=== PATIENT | male | born 1945 | race Caucasian/White ===

== ENCOUNTER 2016-11-16 10:01 | Emergency (ER) | payer OTHER ==
[~2016-11-16] VITALS: Ht 162.6 cm; Wt 86.0 kg
[2016-11-16 10:12] VITALS: BP 163/75; PULSE 74; RESP 16; TEMP 98.6; O2SAT 100
--- NOTE | 2016-11-16 11:04 | PD ---
HPI Chief Complaint: Psychiatric Symptoms Time Seen by Provider: 11:03 Travel History International Travel<30 days: No Contact w/Intl Traveler<30days: No Traveled to known affect area: No History of Present Illness HPI 21-year-old male presents to the ED via EMS under Green act from [employer] for evaluation after making homicidal statements against his . According to the Green paperwork the patient was [facility] the [facility], threatening to throw his off a second-story balcony. The police officers made contact with the patient and his home. He was home alone. The patient endorsed feeling angry and upset with his who was not at the residence. He stated to the officer that his talks with a "smart" attitude and again made references to throwing her off the balcony. He also stated to the [facility] employee that if he had weapons he would kill someone. On presentation the patient is angry, hostile, abusive, confrontational, refusing to provide any information. His is at bedside and is able to provide some information. She states that the patient has a medical history of DM, neuropathy, PTSD. She is unsure of the medicines that he takes or any further medical problems. She states that the patient does not share his medical information with her. She states that the [facility] cancelled several appointments on the patient and this is the source of his anger today. Patient is a current smoker. [facility] Past Medical History High Cholesterol: Yes Diabetes: Yes Psychiatric: Yes (PTSD) Social History Tobacco Use: Yes Allergies-Medications (Allergen,Severity, Reaction): Coded Allergies: No Known Allergies (Unverified , 11/16/16) Review of Systems Except as stated in HPI: all other systems reviewed are Neg Physical Exam Narrative GENERAL: Well-nourished, well-developed white male in no acute distress. SKIN: Focused skin assessment warm/dry. There are a few, subcentimeter, crusted abrasions on the anterior right btets. Mild tenderness. Mild surrounding erythema. No warmth. Drainage. HEAD: Normocephalic. EYES: No scleral icterus. No injection or drainage. NECK: Supple, trachea midline. No JVD or lymphadenopathy. CARDIOVASCULAR: Regular rate and rhythm without murmurs, gallops, or rubs. 2+ DP and radial pulses bilaterally. RESPIRATORY: Breath sounds clear and equal bilaterally. No accessory muscle use. GASTROINTESTINAL: Abdomen protuberant, soft, non-tender, nondistended. Active bowel sounds. MUSCULOSKELETAL: No cyanosis. 2+ edema in bilateral lower extremities, right greater than left. BACK: Nontender without obvious deformity. No CVA tenderness. Data Data Last Documented VS Vital Signs Date Time Temp Pulse Resp B/P Pulse Ox O2 Delivery O2 Flow Rate FiO2 11/16/16 10:12 98.6 74 16 163/75 100 Orders Complete Blood Count With Diff (11/16/16 11:00) Comprehensive Metabolic Panel (11/16/16 11:00) Urinalysis - C+S If Indicated (11/16/16 11:00) Psych Screen (11/16/16 11:00) Drug Screen, Random Urine (11/16/16 11:00) Alcohol (Ethanol) (11/16/16 11:00) Insulin Human Regular Inj (Novolin R Inj (11/16/16 13:00) Sodium Chlor 0.9% 1000 Ml Inj (Ns 1000 M (11/16/16 13:00) Diet Diabetic (11/16/16 Lunch) Blood Glucose (11/16/16 13:15) Labs Laboratory Tests Test 11/16/16 11/16/16 10:20 11:05 White Blood Count 7.0 TH/MM3 Red Blood Count 3.99 MIL/MM3 Hemoglobin 12.4 GM/DL Hematocrit 35.9 % Mean Corpuscular Volume 89.8 FL Mean Corpuscular Hemoglobin 31.1 PG Mean Corpuscular Hemoglobin 34.6 % Concent Red Cell Distribution Width 13.2 % Platelet Count 183 TH/MM3 Mean Platelet Volume 10.7 FL Neutrophils (%) (Auto) 60.9 % Lymphocytes (%) (Auto) 27.9 % Monocytes (%) (Auto) 7.4 % Eosinophils (%) (Auto) 3.0 % Basophils (%) (Auto) 0.8 % Neutrophils # (Auto) 4.2 TH/MM3 Lymphocytes # (Auto) 1.9 TH/MM3 Monocytes # (Auto) 0.5 TH/MM3 Eosinophils # (Auto) 0.2 TH/MM3 Basophils # (Auto) 0.1 TH/MM3 CBC Comment DIFF FINAL Differential Comment Sodium Level 138 MEQ/L Potassium Level 3.9 MEQ/L Chloride Level 103 MEQ/L Carbon Dioxide Level 25.1 MEQ/L Anion Gap 10 MEQ/L Blood Urea Nitrogen 10 MG/DL Creatinine 0.90 MG/DL Estimat Glomerular Filtration 83 ML/MIN Rate Random Glucose 299 MG/DL Calcium Level 8.6 MG/DL Total Bilirubin 0.5 MG/DL Aspartate Amino Transf 13 U/L (AST/SGOT) Alanine Aminotransferase 22 U/L (ALT/SGPT) Alkaline Phosphatase 95 U/L Total Protein 6.4 GM/DL Albumin 3.4 GM/DL Ethyl Alcohol Level LESS THAN 3 MG/DL Urine Color YELLOW Urine Turbidity CLEAR Urine pH 6.5 Urine Specific [place] 1.028 Urine Protein TRACE mg/dL Urine Glucose (UA) 1000 mg/dL Urine Ketones TRACE mg/dL Urine Occult Blood NEG Urine Nitrite NEG Urine Bilirubin NEG Urine Urobilinogen LESS THAN 2.0 MG/DL Urine Leukocyte Esterase NEG Urine RBC LESS THAN 1 /hpf Urine WBC LESS THAN 1 /hpf Microscopic Urinalysis Comment CULT NOT INDICATED Urine Opiates Screen NEG Urine Barbiturates Screen NEG Urine Amphetamines Screen NEG Urine Benzodiazepines Screen NEG Urine Cocaine Screen NEG Urine Cannabinoids Screen NEG MDM Medical Decision Making Medical Screen Exam Complete: Yes Emergency Medical Condition: Yes Differential Diagnosis Adjustment disorder versus anxiety versus bipolar versus depression versus dementia versus electrolyte disorder versus malingering versus mood disorder versus ODD versus psychosis versus PTSD versus schizophrenia versus schizoaffective disorder versus substance-induced mood disorder versus other Narrative Course 71-year-old male presents to the ED via EMS under Green act from [employer] for evaluation after making homicidal statements against his . According to the Green paperwork the patient made a threat to therow his over the balcony and also stated that if he had weapons he would kill someone. On presentation the patient is angry, hostile, abusive, confrontational , refusing to provide any information. His is at bedside and states that the patient has a medical history of DM, neuropathy, PTSD. She is unsure of the medicines that he takes or any further medical problems, as the patient does not share his medical information with her. She states that the [facility] cancelled several appointments on the patient and this is the source of his anger today. [facility] Vitals reviewed. After the patient calmed down I entered the room and was able to perform a physical exam. He is a nontoxic- appearing white male in no acute distress. He is quite emotionally labile during the course of our talk, but his anger seems to have subsided for the time being. He denies chest pain, shortness of breath, abdominal pain, changes in bowel habits, dysuria. Chest is clear to auscultation bilaterally, no appreciable M/R/G. Abdomen protuberant, soft, nontender. 2+ edema in the bilateral lower extremities. Right greater than left. CBC: No anemia or leukocytosis. CMP: Glucose 299 UA: No culture indicated Tox screen: Negative Patient was administered a liter of normal saline, 6 units insulin IM, allowed to eat lunch. He states that he woke up this morning feeling incredibly angry and is unsure of the reason why. He does relate several stories related to his time in [place] which I feel is likely contributing to his anger. Family is [facility] that [facility] [place] [facility] care. I explained that he must undergo a psychiatric evaluation here before that decision is made. Patient is medically cleared for psychiatric evaluation. Please see psych notes for disposition. Diagnosis Primary Impression: Medical clearance for psychiatric admission Tarah Friedman Nov 16, 2016 11:04
[2016-11-16 11:42] LABS: AUTOMATED NEUTROPHIL # 4.2 TH/MM3 (1.8-7.7); BASOPHIL # 0.1 TH/MM3 (0-0.2); BASOPHIL % 0.8 % (0.0-2.0); EOSINOPHIL # 0.2 TH/MM3 (0-0.4); HEMATOCRIT 35.9 % (39.0-51.0); HEMO FLAGS DIFF FINAL; LYMPH % 27.9 % (9.0-44.0); LYMPHOCYTE # 1.9 TH/MM3 (1.0-4.8); MEAN CELL VOLUME 89.8 FL (80.0-100.0); MEAN CORPUSCULAR HEMOGLOBIN 31.1 PG (27.0-34.0); MEAN CORPUSCULAR HGB CONC 34.6 % (32.0-36.0); MONO % 7.4 % (0.0-8.0); NEUT % 60.9 % (16.0-70.0); PLATELET COUNT 183 TH/MM3 (150-450); RED BLOOD COUNT 3.99 MIL/MM3 (4.50-5.90); RED CELL DISTRIBUTION WIDTH 13.2 % (11.6-17.2)
[2016-11-16 11:50] LABS: BLOOD, URINE NEG (NEG); COMMENT (UR) CULT NOT INDICATED; CULTURE IF INDICATED CULT NOT INDICATED; GLUCOSE,URINE 1000 mg/dL (NEG); KETONE, URINE TRACE mg/dL (NEG); NITRITE,URINE NEG (NEG); PH, URINE 6.5 (5.0-8.5); URINE COLOR YELLOW (YELLW/STRAW)
[2016-11-16 11:57] LABS: ALT (GPT) 22 U/L (12-78); ANION GAP 10 MEQ/L (5-15); AST (GOT) 13 U/L (15-37); BICARBONATE 25.1 MEQ/L (21.0-32.0); BLOOD UREA NITROGEN 10 MG/DL (7-18); CHLORIDE 103 MEQ/L (98-107); GLOMERULAR FILTRATION RATE 83 ML/MIN (>89); POTASSIUM 3.9 MEQ/L (3.5-5.1); SODIUM (NA) 138 MEQ/L (136-145)
[2016-11-16 11:59] LABS: ALKALINE PHOSPHATASE 95 U/L (45-117); TOTAL BILIRUBIN ADULT 0.5 MG/DL (0.2-1.0)
[2016-11-16 12:46] LABS: AMPHETAMINE, URINE NEG (NEG); BARBITURATES, URINE NEG (NEG); COCAINE, URINE NEG (NEG)
[2016-11-16] MEDS ORDERED: SODIUM CHLOR 0.9% 1000 ML INJ 1,000 ML IV ONE (13:00)
[2016-11-16] MEDS ORDERED: INSULIN HUMAN REGULAR 1,000 UNITS/10 ML VIAL SQ ONE (13:00)
[2016-11-16 15:24] VITALS: BP 142/79; PULSE 77; RESP 16; O2SAT 97
[2016-11-16] MEDS ORDERED: METF1000 PO (16:37)
[2016-11-16] MEDS ORDERED: GLIP10TA6 PO (16:37)
[2016-11-16] MEDS ORDERED: SERT-129 PO (16:56)
[2016-11-16] MEDS ORDERED: SIMV20TA PO (16:56)
[2016-11-16] MEDS ORDERED: LOSA100T PO (16:56)
[2016-11-16] MEDS ORDERED: GABA400C5 PO (16:56)
[2016-11-16] MEDS ORDERED: RANI150T PO (16:56)
[2016-11-16] MEDS ORDERED: OXYB5TAB10 PO (16:56)
[2016-11-16 16:57] VITALS: BP 152/73; PULSE 86; RESP 16; O2SAT 100
[2016-11-16] MEDS ORDERED: VIST50CA PO (16:57)
[2016-11-16] MEDS ORDERED: ATEN50TA PO (17:00)
[2016-11-16] MEDS ORDERED: LOTR2AER2 TOPICAL (17:00)
[2016-11-16] MEDS ORDERED: DOCU100C PO (17:00)
[2016-11-16] MEDS ORDERED: metFORMIN HCL 500 MG TAB PO ONE (18:00)
[2016-11-16 22:07] VITALS: BP 156/70; PULSE 59; RESP 19; O2SAT 98
[2016-11-17 02:27] VITALS: BP 153/72; PULSE 75; RESP 19; O2SAT 94
[2016-11-17 06:23] VITALS: BP 181/80; PULSE 78; RESP 19; O2SAT 99
[2016-11-17] MEDS ORDERED: metFORMIN HCL 500 MG TAB PO ONE (08:45)
[2016-11-17 09:01] VITALS: BP 145/65; PULSE 73; RESP 18; O2SAT 99
--- NOTE | 2016-11-17 09:11 | MB ---
cc: LORENZO JACOME DATE OF CONSULTATION 11/17/2016 PHYSICIAN REQUESTING CONSULTATION Emergency Department REASON FOR CONSULTATION Green Act HISTORY OF PRESENT ILLNESS Mr. Montiel is a 71-year-old male with a possible history of PTSD who presents on a Green Act from [employer] alleging that the patient was on the phone with the [facility] and told employees that he was upset and angry and was going to throw his off of a second story balcony. Reviewing the electronic medical record, I see no prior psychiatric contact within our system. This is in fact the patient's first visit to [facility]. The patient seen and examined. Chart reviewed. Case discussed with nurse in the J pod. There has been no evidence of any suicidality or homicidality despite nearly a day of observation in the emergency room. On my examination today, the patient is calm and pleasant. He says that he has been struggling with a lot of anxiety and frustration lately because he has a variety of medical issues, and his doctors at the [facility] cannot provide him with a diagnosis or treatment plan for these. He says that on the morning in question, "I woke up that morning so pissed off and it only got worse." He says that his was not even home when he issued the threat and he adamantly denies any urge to injure or kill his on direct questioning now. He says "I love my ." He denies any suicidal ideation, intent or plan on direct questioning. He does endorse feeling somewhat depressed as a consequence of the ambiguity of his medical conditions. He reports that his sleep is poor, but it is also disrupted by nightmares which may be related to PTSD. His appetite is fair. He remains hopeful and says "I know I am going to get better." There is some possible anhedonia. No morbid guilt or feelings of worthlessness. No hypomanic or manic symptoms noted. Denies audiovisual hallucinations and I can elicit no delusional beliefs. The remainder of the psychiatric ROS is negative. The patient is requesting discharge from the psychiatric emergency room this morning. Nursing staff has obtained collateral twice from the patient's to the effect that she has absolutely no safety concerns about the patient being discharged from the ED. PAST PSYCHIATRIC HISTORY The patient reports a possible diagnosis of PTSD. He is reportedly seen by a psychiatrist at the [facility]. He denies any history of psychiatric admissions or suicide attempts. He denies any history of violent behavior or violent crime. FAMILY HISTORY The patient reports that he had an uncle on his father's side who went insane after drinking some of his own bathtub liquor during the prohibition. CHEMICAL DEPENDENCY HISTORY The patient denies any abuse of drugs or alcohol himself. SOCIAL HISTORY The patient reports that he lives with his of 28 years. This is his second marriage, his first marriage having ended in divorce after 23 years. He has four children. He has an ANNA. He worked in machinery sales until retiring. He denies any legal history. He is an [employer] with an honorable discharge and service in [place]. He denies any access to guns or firearms. He does endorse denominational beliefs. PAST MEDICAL HISTORY Includes a history of peripheral neuropathy and type 2 diabetes. REVIEW OF SYSTEMS The patient does have some continence issues. No reported headache, vision or hearing changes, chest pain, shortness of breath, bowel issues. PHYSICAL EXAMINATION VITAL SIGNS: Temperature is 98.6, pulse 78, respirations 19, blood pressure 181/80, pulse oximetry 99% on room air. Physical examination was completed by the ED provider. On my examination today, the patient appears to be in no acute physical distress. He does walk with a somewhat antalgic gait. I also note that he has a left greater than right resting tremor. No other motoric abnormalities noted. LABORATORY Reviewed: CBC is significant for a normocytic anemia with hemoglobin of 12.4. CMP is significant for hyperglycemia at 299 in a nonfasting sample, as well as decreased GFR at 83. Toxicology is negative and alcohol level is undetectable. Urinalysis reveals glucosuria and trace ketones. MENTAL STATUS EXAM The patient is in hospital w. He is mildly disheveled but maintaining basic hygiene. He is awake and alert and oriented to person, year, location. His registration is 3/3 and his recall is 1/3 at 5 minutes. He is able to spell the word world forwards and gives it backwards as dorwo. He is able to name two items and repeat a phrase. He is able to name the left three presidents. Motor exam as above. Speech is within normal limits for rate, tone and volume. Language and fund of knowledge seem average. Mood is somewhat depressed and affect is restricted. Thought process linear. No loosening of associations. No evident delusions. Denies audiovisual hallucinations. Denies suicidal or homicidal ideation, intent or plan and contracts for safety. Insight and judgment are fair. ASSESSMENT/PLAN 1. Major depressive disorder, currently moderate, F33.1 2. Suspect comorbid PTSD, chronic This is a 71-year-old male with psychiatric history as detailed above who presents under a Green Act. On my examination today, the patient denies any suicidal or homicidal ideation and in particular denies any urge to injure his . He says that he just woke up angry that morning on account of his frustration about [facility] to [facility] and treat his medical conditions. He does describe some depressive symptomatology and I suspect he is currently experiencing a moderate degree of major depression. He does appear to be attending to his basic needs. The nursing staff has obtained reassuring collateral from the patient's . Putting all of this information together and weighing the acute, chronic, and protective factors, I textile finisher to a reasonable degree of medical certainty that the patient is at low imminent risk of harm to self or others from a mental illness as defined under the Green Act. His level of function is adequate for outpatient care. Consequently, the patient does not meet Green Act criteria and I have lifted the Green Act. I have recommended that the patient consider voluntary psychiatric hospitalization for the management of his depression, but he has declined. Given that I have no basis to retain this patient involuntarily and given that he is requesting discharge from the ED, I must recommend his discharge from a psychiatric standpoint. I have counseled the patient to follow up with his outpatient psychiatric providers and continue with his psychotropic medications. I have counseled the patient regarding warning signs for need to return to the psychiatric emergency room as part of a general safety plan. The patient is otherwise psychiatrically clear for discharge from the ED. Case discussed with RN in the J pod. Thank you very much for this consultation. Lorenzo VALENZUELA /8:03 AM /9:00 AM [facility]
== END 2016-11-17 09:24 | disposition home or self-care (01) ==
LOC: NEPE 10:01 → NEPJ 11-17 09:24
DX: Z02.89 Encounter for other administrative examinations (principal); F33.1 Major depressive disorder, recurrent, moderate; R45.4 Irritability and anger; R45.5 Hostility; R45.86 Emotional lability; E11.9 Type 2 diabetes mellitus without complications; E78.00 Pure hypercholesterolemia, unspecified; G62.9 Polyneuropathy, unspecified; Z72.0 Tobacco use; Z86.59 Personal history of other mental and behavioral disorders
CPT/HCPCS: 80053; 80307; 81001; 85025; 96372; 99284; J1815; J7030

== ENCOUNTER 2017-03-06 13:33 | Inpatient (IN) | payer OTHER, MEDICARE ==
[~2017-03-06] VITALS: Ht 175.3 cm; Wt 68.0 kg
[~2017-03-06 13:33] MED LIST: ATEN50TA PO; DOCU100C PO; GABA400C5 PO; GLIP10TA6 PO; LOSA100T PO; LOTR2AER2 TOPICAL; METF1000 PO; OXYB5TAB10 PO; RANI150T PO; SERT-129 PO; SIMV20TA PO; VIST50CA PO
[2017-03-06] MEDS ORDERED: DEXTROSE 50% IN WATER 50 ML SYRINGE ONE (13:43)
[2017-03-06 13:50] VITALS: RESP 18; O2SAT 96
[2017-03-06 13:51] VITALS: BP 152/71; PULSE 61; RESP 18; TEMP 97.7; O2SAT 96
[2017-03-06] MEDS ORDERED: SODIUM CHLOR 0.9% 1000 ML INJ 1,000 ML IV SCH (13:52)
[2017-03-06] MEDS ORDERED: DEXTROSE 50% IN WATER 50 ML SYRINGE IV ONE ×2 (14:00→16:15)
[2017-03-06 14:11] LABS: AUTOMATED NEUTROPHIL # 13.4 TH/MM3 (1.8-7.7); BASOPHIL % 0.1 % (0.0-2.0); EOSINOPHIL % 0.1 % (0.0-4.0); HEMATOCRIT 34.2 % (39.0-51.0); LYMPHOCYTE # 1.5 TH/MM3 (1.0-4.8); MEAN CELL VOLUME 90.9 FL (80.0-100.0); MEAN CORPUSCULAR HEMOGLOBIN 30.6 PG (27.0-34.0); MEAN CORPUSCULAR HGB CONC 33.6 % (32.0-36.0); MONO % 7.6 % (0.0-8.0); NEUT % 83.2 % (16.0-70.0); PLATELET COUNT 369 TH/MM3 (150-450); RED BLOOD COUNT 3.76 MIL/MM3 (4.50-5.90); RED CELL DISTRIBUTION WIDTH 13.1 % (11.6-17.2); WHITE BLOOD COUNT 16.1 TH/MM3 (4.0-11.0)
[2017-03-06 14:17] LABS: HEMO FLAGS AUTO DIFF
[2017-03-06 14:28] LABS: PROTHROMBIN TIME - PATIENT 10.7 SEC (9.8-11.6)
[2017-03-06 14:30] LABS: ANION GAP 18 MEQ/L (5-15)
[2017-03-06 14:41] LABS: ALKALINE PHOSPHATASE 67 U/L (45-117); ALT (GPT) 21 U/L (12-78); AST (GOT) 25 U/L (15-37); BICARBONATE 14.4 MEQ/L (21.0-32.0); BLOOD UREA NITROGEN 111 MG/DL (7-18); CHLORIDE 98 MEQ/L (98-107); GLOMERULAR FILTRATION RATE 5 ML/MIN (>89); SODIUM (NA) 130 MEQ/L (136-145); TOTAL BILIRUBIN ADULT 0.3 MG/DL (0.2-1.0)
[2017-03-06 14:49] LABS: BACTERIA, URINE RARE /hpf; BLOOD, URINE SMALL (NEG); COMMENT (UR) CATH-CULTURE IND; CULTURE IF INDICATED CATH CULTURE IND; GLUCOSE,URINE NEG (NEG); KETONE, URINE NEG (NEG); NITRITE,URINE NEG (NEG); URINE COLOR YELLOW (YELLW/STRAW)
[2017-03-06 14:49] LABS: PLATELET ESTIMATE SMEAR NORMAL (NORMAL)
[2017-03-06 14:50] LABS: PLATELET MORPHOLOGY ENLARGED (NORMAL); SCAN/DIFF AUTO DIFF CONFIRMED
[2017-03-06 14:57] LABS: CREATINE KINASE 60 U/L (39-308)
[2017-03-06] MEDS ORDERED: VANCOMYCIN INJ 1,000 MG in SODIUM CHLOR 0.9% 250 ML INJ 250 ML IV ONE (15:00)
[2017-03-06] MEDS ORDERED: SODIUM CHLOR 0.9% 1000 ML INJ 1,000 ML IV ONE ×2 (15:00→16:30)
[2017-03-06] MEDS ORDERED: PIPERACIL-TAZO 4.5 GM PREMIX 100 ML IV ONE (15:00)
[2017-03-06 15:03] LABS: POTASSIUM 7.4 MEQ/L (3.5-5.1)
--- NOTE | 2017-03-06 15:09 | RADRPT ---
EXAM DATE/TIME: 03/06/2017 14:34 [facility] COMPARISON: No previous studies available for comparison. INDICATIONS : Syncope, falling MEDICAL HISTORY : Diabetes, transverse myelitis per SURGICAL HISTORY : None. ENCOUNTER: Initial ACUITY: 1 day PAIN SCORE: 0/10 LOCATION: Bilateral chest FINDINGS: There is elevation of the right hemidiaphragm. Bibasilar streakiness is noted consistent with probab le atelectasis. The heart is normal. Degenerative changes and mild scoliosis of the thoracic spine a re noted. CONCLUSION: 1. Bibasilar streakiness consistent with probable atelectasis. 2. Elevation of the right hemidiaphragm. 3. Degenerative changes and mild scoliosis of the thoracic spine. Krishan Mitchell MD on March 06, 2017 at 15:05 Board Certified Radiologist. This report was verified electronically.
[2017-03-06] MEDS ORDERED: RESP: ALBUTEROL CONC 2.5 MG/0.5 ML NEB INH ONE (15:15)
[2017-03-06] MEDS ORDERED: SODIUM BICARBONATE 8.4% SOLN 50 MEQ/50 ML VIAL SLOW IVP ONE (15:15)
[2017-03-06] MEDS ORDERED: CALCIUM GLUCONATE 10% 1 GM/10 ML VIAL SLOW IVP ONE (15:15)
--- NOTE | 2017-03-06 15:26 | PD ---
HPI Chief Complaint: Diabetic Time Seen by Provider: 13:52 Travel History International Travel<30 days: No Contact w/Intl Traveler<30days: No Traveled to known affect area: No History of Present Illness HPI 72-year-old male was brought to the emergency room with history of mental status and blood sugar in the 20s. Patient was brought in by EMS. They were unable to put an IV and had inserted and IO to which they were giving him D10. When patient arrived here his blood sugar was 33. She continued to be lethargic but answering questions by nodding or shaking his head. I've inserted and EJ and patient was given D 50 by that. He was not a reliable historian at this point. As per the EMS patient has history of MS and was recently discharged from a rehabilitation. He has history of diabetes and he has home health care that they do not check his sugar. [facility] Past Medical History Narrative Medical List of his past medical, surgical, social and family history is reviewed from the nursing note. Autoimmune Disease: Yes (MS) High Cholesterol: Yes Diabetes: Yes Patient Takes Glucophage: Yes Psychiatric: Yes (PTSD) Social History Alcohol Use: Yes (" will not buy anymore beer for me") Tobacco Use: Yes Substance Use: No (Denies) Allergies-Medications (Allergen,Severity, Reaction): Coded Allergies: No Known Allergies (Unverified , 11/16/16) Comments No known drug allergies. Reported Meds & Prescriptions Reported Meds & Active Scripts Active Reported Lotrimin AF Deodorant Powder (Miconazole Nitrate Powder) 2 % Aerp 1 Applic TOPICAL DAILY PRN Docusate Sodium 100 Mg Cap 200 Mg PO DAILY Atenolol 50 Mg Tab 50 Mg PO DAILY Vistaril (Hydroxyzine Pamoate) 50 Mg Cap 50 Mg PO HS PRN Losartan (Losartan Potassium) 100 Mg Tab 100 Mg PO DAILY Simvastatin 20 Mg Tab 20 Mg PO HS Sertraline (Sertraline HCl) 100 Mg Tab 100 Mg PO DAILY Ditropan (Oxybutynin Chloride) 5 Mg Tab 2.5 Mg PO BID Ranitidine (Ranitidine HCl) 150 Mg Tab 150 Mg PO BID Gabapentin 400 Mg Cap 400 Cap PO TID Glipizide 10 Mg Tab 20 Mg PO BIDAC Take 30 minutes before a meal Metformin (Metformin HCl) 1,000 Mg Tab 1,000 Mg PO BIDPC With meals Narrative Medication List of his home medications reviewed from the nursing note. Review of Systems Except as stated in HPI: all other systems reviewed are Neg Physical Exam Narrative GENERAL: Lethargic, cold and clammy, moderate distress SKIN: Focused skin assessment warm/dry. Pale HEAD: Atraumatic. Normocephalic. EYES: Pupils equal and round. No scleral icterus. No injection or drainage. ENT: No nasal bleeding or discharge. Mucous membranes pink and moist. NECK: Trachea midline. No JVD. CARDIOVASCULAR: Regular rate and rhythm. No murmur appreciated. RESPIRATORY: No accessory muscle use. Clear to auscultation. Breath sounds equal bilaterally. GASTROINTESTINAL: Abdomen soft, non-tender, nondistended. Hepatic and splenic margins not palpable. MUSCULOSKELETAL: No obvious deformities. No clubbing. No cyanosis. No edema. NEUROLOGICAL: Lethargic, GCS of 13. No obvious cranial nerve deficits. Motor grossly within normal limits. Normal speech. PSYCHIATRIC: Appropriate mood and affect; insight and judgment normal. Data Data Last Documented VS Vital Signs Date Time Temp Pulse Resp B/P Pulse Ox O2 Delivery O2 Flow Rate FiO2 03/06/17 14:10 65 18 97 Nasal Cannula 2 03/06/17 13:51 97.7 152/71 Orders Dextrose 50% In Caden (Syr) Inj (D50w (Syr (03/06/17 13:43) Electrocardiogram (03/06/17 13:52) Ammonia (03/06/17 13:52) Complete Blood Count With Diff (03/06/17 13:52) Comprehensive Metabolic Panel (03/06/17 13:52) Creatine Kinase (Cpk) (03/06/17 13:52) Prothrombin Time / Inr (Pt) (03/06/17 13:52) Troponin I (03/06/17 13:52) Thyroid Stimulating Hormone (03/06/17 13:52) Urinalysis - C+S If Indicated (03/06/17 13:52) Lactic Acid Sepsis Protocol (03/06/17 13:52) Blood Culture (03/06/17 13:52) Chest, Single Ap (03/06/17 13:52) Ct Brain W/O Iv Contrast(Rout) (03/06/17 13:52) Blood Glucose (03/06/17 13:52) Ecg Monitoring (03/06/17 13:52) Iv Access Insert/Monitor (03/06/17 13:52) Oximetry (03/06/17 13:52) Sodium Chloride 0.9% Flush (Ns Flush) (03/06/17 14:00) Sodium Chlor 0.9% 1000 Ml Inj (Ns 1000 M (03/06/17 13:52) Ct Abd/Pel W/O Iv Contrast (03/06/17 ) Urinary Catheter Insert/Apply (03/06/17 13:52) Dextrose 50% In Caden (Syr) Inj (D50w (Syr (03/06/17 14:00) Urine Culture (03/06/17 14:00) Sodium Chlor 0.9% 1000 Ml Inj (Ns 1000 M (03/06/17 15:00) Piperacil-Tazo 4.5 Gm Premix (Zosyn 4.5 (03/06/17 15:00) Vancomycin Inj (Vancomycin Inj) (03/06/17 15:00) Calcium Gluconate Inj (Calcium Gluconate (03/06/17 15:15) Sodium Bicarbonate 8.4% Inj (Sodium Bica (03/06/17 15:15) Albuterol Concentrated Neb (Albuterol Co (03/06/17 15:15) Notify Radiology (03/06/17 15:42) ^ Saline Lock (03/06/17 15:42) Sodium Chlor 0.9% 1... W/Sodium Bicarbon (03/06/17 15:42) Admit Order (Ed Use Only) (03/06/17 15:44) Labs Laboratory Tests Test 03/06/17 03/06/17 13:50 14:00 White Blood Count 16.1 TH/MM3 Red Blood Count 3.76 MIL/MM3 Hemoglobin 11.5 GM/DL Hematocrit 34.2 % Mean Corpuscular Volume 90.9 FL Mean Corpuscular Hemoglobin 30.6 PG Mean Corpuscular Hemoglobin 33.6 % Concent Red Cell Distribution Width 13.1 % Platelet Count 369 TH/MM3 Mean Platelet Volume 9.0 FL Neutrophils (%) (Auto) 83.2 % Lymphocytes (%) (Auto) 9.0 % Monocytes (%) (Auto) 7.6 % Eosinophils (%) (Auto) 0.1 % Basophils (%) (Auto) 0.1 % Neutrophils # (Auto) 13.4 TH/MM3 Lymphocytes # (Auto) 1.5 TH/MM3 Monocytes # (Auto) 1.2 TH/MM3 Eosinophils # (Auto) 0.0 TH/MM3 Basophils # (Auto) 0.0 TH/MM3 CBC Comment AUTO DIFF Differential Comment AUTO DIFF CONFIRMED Platelet Estimate NORMAL Platelet Morphology Comment ENLARGED Prothrombin Time 10.7 SEC Prothromb Time International 1.0 RATIO Ratio Sodium Level 130 MEQ/L Potassium Level 7.4 MEQ/L Chloride Level 98 MEQ/L Carbon Dioxide Level 14.4 MEQ/L Anion Gap 18 MEQ/L Blood Urea Nitrogen 111 MG/DL Creatinine 10.21 MG/DL Estimat Glomerular Filtration 5 ML/MIN Rate Random Glucose 51 MG/DL Lactic Acid Level 5.8 mmol/L Calcium Level 8.7 MG/DL Total Bilirubin 0.3 MG/DL Aspartate Amino Transf 25 U/L (AST/SGOT) Alanine Aminotransferase 21 U/L (ALT/SGPT) Alkaline Phosphatase 67 U/L Total Creatine Kinase 60 U/L Troponin I LESS THAN 0.02 NG/ML Total Protein 6.8 GM/DL Albumin 2.4 GM/DL Thyroid Stimulating Hormone 2.150 uIU/ML 3rd Gen Urine Color YELLOW Urine Turbidity CLEAR Urine pH 5.0 Urine Specific [place] 1.014 Urine Protein TRACE mg/dL Urine Glucose (UA) NEG mg/dL Urine Ketones NEG mg/dL Urine Occult Blood SMALL Urine Nitrite NEG Urine Bilirubin NEG Urine Urobilinogen LESS THAN 2.0 MG/DL Urine Leukocyte Esterase NEG Urine RBC 6 /hpf Urine WBC 1 /hpf Urine Amorphous Sediment RARE Urine Bacteria RARE /hpf Microscopic Urinalysis Comment [facility] Medical Decision Making Medical Screen Exam Complete: Yes Emergency Medical Condition: Yes Medical Record Reviewed: Yes Interpretation(s) Twelve-lead EKG was reviewed by me. Normal sinus rhythm, normal axis, right bundle branch block, first-degree AV block, bradycardia. Heart rate of 59 bpm. Differential Diagnosis Hypoglycemia, sepsis, dehydration, electrolyte abnormality Narrative Course 3:22 PM blood test results are suggestive of sepsis with leukocytosis, elevated lactic acid. Patient also has acute renal failure with metabolic acidosis. I' ve given him another liter of IV fluid bolus and he's been given IV calcium chloride 2 g, 3 A of bicarbonate and albuterol nebulizer. Hips repeat blood sugar is 132 after D50. Patient will require admission in the ICU. Awaiting for the embroidery designer call back. I will also put a page out for the department coordinator since he would require quite possibly emergent dialysis. Patient has a Mendoza catheter. 4:19 PM I discussed the case with Dr. Maria who agreed with the emergent dialysis. He wanted the patient to be on a bicarbonate drip as well in addition to the medications that were ordered for hyperkalemia by me. The drip has been added. I just finished putting a central line. Please refer to my procedure note. Patient tolerated the procedure well. Patient has put out almost 2 L of urine into his Mendoza. CT abdomen shows significant perinephric stranding more on the right. He possibly had obstructive uropathy. The is here and I spoke with her briefly and let her know about the patient's condition and the need to put the central line. She mentioned that patient was complaining of abdominal pain in rehabilitation yesterday and had not urinated much in past 2 days. Critical Care Narrative Aggregate critical care time was 75 minutes. Time to perform other separately billable procedures was not included in the critical care time. My time did not include minutes spent treating any other patients simultaneously or on activities that did not directly contribute to the patient's treatment. The services I provided to this patient were to treat and/or prevent clinically significant deterioration that could result in: Severe hyperglycemia, sepsis, metabolic acidosis, acute renal failure, hyperkalemia, hyperkalemia correction I provided critical care services requiring my management, as noted below: Chart data review, documentation time, medication orders and management, vital sign assessments/reviewing monitor data, ordering and reviewing lab tests, ordering and interpreting/reviewing x-rays and diagnostic studies, care of the patient and discussion of the patient with the admitting physicians. Procedures Procedure Narrative CENTRAL VENOUS LINE: The site was prepped with Betadine and sterilely draped. It was infiltrated with 1% lidocaine plain. The deep vein was cannulated using normal Seldinger technique. A triple lumen central line was placed in the left subclavian site and secured with simple interrupted suture. The site was sterilely dressed. The patient tolerated the procedure well. EKG Prior to Arrival: No Physician Communication Physician Communication Dr. Maria, Dr. Aguilar Diagnosis Primary Impression: Acute renal failure Qualified Code: N17.9 - Acute renal failure, unspecified acute renal failure type Additional Impressions: Hypoglycemia Altered mental status Qualified Code: R40.0 - Somnolence Metabolic acidosis Sepsis Qualified Code: A41.9 - Sepsis, due to unspecified organism Lactic acidosis Hyperkalemia Admitting Information Admitting Physician Requests: it Stephanie Carrillo MD Mar 06, 2017 15:26
[2017-03-06] MEDS ORDERED: SODIUM BICARBONATE 8.4% INJ 154 MEQ in SODIUM CHLOR 0.9% 1000 ML INJ 846 ML IV SCH (15:42)
[2017-03-06] MEDS ORDERED: ONDANSETRON HCL 4 MG/2 ML VIAL ONE (15:54)
[2017-03-06 16:06] LABS: LACTIC ACID GHOST NOT REPORTABLE
--- NOTE | 2017-03-06 16:07 | RADRPT ---
EXAM DATE/TIME: 03/06/2017 15:25 [facility] COMPARISON: No previous studies available for comparison. INDICATIONS : Altered mental status RADIATION DOSE: 56.35 CTDIvol (mGy) MEDICAL HISTORY : Diabetes mellitus type 1. SURGICAL HISTORY : None. ENCOUNTER: Initial ACUITY: 1 day PAIN SCALE: 0/10 LOCATION: cranial TECHNIQUE: Multiple contiguous axial images were obtained of the head. Using automated exposure control and adj ustment of the mA and/or kV according to patient size, radiation dose was kept as low as reasonably a chievable to obtain optimal diagnostic quality images. DICOM format image data is available electro nically for review and comparison. FINDINGS: CEREBRUM: Atrophy. Periventricular low attenuation change involving both cerebral hemispheres. The ventricles a re normal for age. No evidence of midline shift, mass lesion, hemorrhage or acute infarction. No ex tra-axial fluid collections are seen. POSTERIOR FOSSA: The cerebellum and brainstem are intact. The 4th ventricle is midline. The cerebellopontine angle i s unremarkable. EXTRACRANIAL: The visualized portion of the orbits is intact. SKULL: The calvaria is intact. No evidence of skull fracture. CONCLUSION: 1. No acute intracranial abnormality. 2. Atrophy and chronic small vessel ischemic change. Jeremy Rutherford Jr., MD on March 06, 2017 at 16:04 Board Certified Radiologist. This report was verified electronically.
[2017-03-06] MEDS ORDERED: INSULIN HUMAN REGULAR 1,000 UNITS/10 ML VIAL IV PUSH ONE ×2 (16:15→16:30)
--- NOTE | 2017-03-06 16:19 | PD.CONS ---
HPI Service Nephrology Consult Requested By Gerardo Reason for Consult Acute Renal Failure, hyperkalemia Primary Care Physician Unknown History of Present Illness This is a 72 y/o male patient. He was sent from the [facility] in [place], where he was admitted after a fall and newly diagnosed with MS to an outpatient rehab facility. He was discharged home from rehab yesterday afternoon. The reports he was very sleepy, drinking little water, had looked as if he was going to vomit at times but never did. Overnight he normally wets his adult diapers, but she noticed he did not urinate. After questioning her, she remembers at the rehab he continued to complain of the inability to urinate and developed lower abdominal pain. The home health nurse came to their home today, was unable to get him out of bed therefore called 911. He was severely hypoglycemic on arrival, blood sugar in the 20s. In the ER he had several significant lab abnormalities: Cr 10.2, BUN 111, K 7.4, C02 14.4 , glucose 51 after multiple doses of dextrose. A chan was placed and he had one liter out initially, within 30 minutes he has had another 1.5-2 liters returned. It was tere but now has cleared, no evidence of infection, it was not cloudy and did not have sediment. We were consulted for renal management. ( Nayeli Serrano) Review of Systems Constitutional: COMPLAINS OF: Fatigue, DENIES: Weight gain, Change in appetite Cardiovascular: DENIES: Chest pain Genitourinary: COMPLAINS OF: Urinary incontinence, Urgency Neurologic: COMPLAINS OF: Abnormal gait, DENIES: Localized weakness Psychiatric: COMPLAINS OF: Confusion (Nayeli Serrano) Past Family Social History Allergies: Coded Allergies: No Known Allergies (Unverified , 11/16/16) Past Medical History DM II HTN hyperlipidemia overactive bladder depression newly diagnosed MS Past Surgical History denies surgeries Reported Medications Lotrimin AF Deodorant Powder (Miconazole Nitrate Powder) 2 % Aerp 1 Applic TOPICAL DAILY PRN Docusate Sodium 100 Mg Cap 200 Mg PO DAILY Atenolol 50 Mg Tab 50 Mg PO DAILY Vistaril (Hydroxyzine Pamoate) 50 Mg Cap 50 Mg PO HS PRN Losartan (Losartan Potassium) 100 Mg Tab 100 Mg PO DAILY Simvastatin 20 Mg Tab 20 Mg PO HS Sertraline (Sertraline HCl) 100 Mg Tab 100 Mg PO DAILY Ditropan (Oxybutynin Chloride) 5 Mg Tab 2.5 Mg PO BID Ranitidine (Ranitidine HCl) 150 Mg Tab 150 Mg PO BID Gabapentin 400 Mg Cap 400 Cap PO TID Glipizide 10 Mg Tab 20 Mg PO BIDAC Take 30 minutes before a meal Metformin (Metformin HCl) 1,000 Mg Tab 1,000 Mg PO BIDPC With meals Active Ordered Medications Current Medications Medications (Trade) Dose Ordered Sig/Juan Route Start Time Stop Time Status Last Admin IV Flush 2 ml 2 ml UNSCH PRN IV FLUSH 03/06/17 14:00 Sodium Chloride 1,000 ml @ 999 mls/hr BOLUS ONCE IV 03/06/17 15:00 03/06/17 16:00 Vancomycin HCl 1000 mg/Sodium Chloride 250 ml @ 250 mls/hr ONCE ONCE IV 03/06/17 15:00 03/06/17 15:59 (Sodium Bicarbonate 8.4% Inj/NS 1000 ml Inj) 1,000 ml @ 0 mls/hr Q0M IV 03/06/17 15:42 Family History No hx of renal disorders Social History daily smoker, 1 ppd no ETOH, former occasional use , lives with locally retired from sales, he is a [place] , exposed to [place] full code (Nayeli Serrano) Physical Exam Vital Signs Vital Signs Date Time Temp Pulse Resp B/P Pulse Ox O2 Delivery O2 Flow Rate FiO2 03/06/17 14:10 65 18 97 Nasal Cannula 2 03/06/17 13:51 97.7 61 18 152/71 96 Nasal Cannula 2 03/06/17 13:50 18 96 Nasal Cannula 2 Physical Exam male, lying supine on stretcher awake, oriented to self and place; slow speech; slow to follow commands CV: S1/S2, RRR no murmurs Lungs: clear in all cortés Abd: round, obese, soft, non tender; normal bowel sounds : tere urine, no sediment observed Ext: no edema, distal pulses intact Laboratory Laboratory Tests Test 03/06/17 03/06/17 13:50 14:00 White Blood Count 16.1 Red Blood Count 3.76 Hemoglobin 11.5 Hematocrit 34.2 Mean Corpuscular Volume 90.9 Mean Corpuscular Hemoglobin 30.6 Mean Corpuscular Hemoglobin 33.6 Concent Red Cell Distribution Width 13.1 Platelet Count 369 Mean Platelet Volume 9.0 Neutrophils (%) (Auto) 83.2 Lymphocytes (%) (Auto) 9.0 Monocytes (%) (Auto) 7.6 Eosinophils (%) (Auto) 0.1 Basophils (%) (Auto) 0.1 Neutrophils # (Auto) 13.4 Lymphocytes # (Auto) 1.5 Monocytes # (Auto) 1.2 Eosinophils # (Auto) 0.0 Basophils # (Auto) 0.0 CBC Comment AUTO DIFF Differential Comment AUTO DIFF CONFIRMED Platelet Estimate NORMAL Platelet Morphology Comment ENLARGED Prothrombin Time 10.7 Prothromb Time International 1.0 Ratio Sodium Level 130 Potassium Level 7.4 Chloride Level 98 Carbon Dioxide Level 14.4 Anion Gap 18 Blood Urea Nitrogen 111 Creatinine 10.21 Estimat Glomerular Filtration 5 Rate Random Glucose 51 Lactic Acid Level 5.8 Calcium Level 8.7 Total Bilirubin 0.3 Aspartate Amino Transf 25 (AST/SGOT) Alanine Aminotransferase 21 (ALT/SGPT) Alkaline Phosphatase 67 Total Creatine Kinase 60 Troponin I LESS THAN 0.02 Total Protein 6.8 Albumin 2.4 Thyroid Stimulating Hormone 2.150 3rd Gen Urine Color YELLOW Urine Turbidity CLEAR Urine pH 5.0 Urine Specific [place] 1.014 Urine Protein TRACE Urine Glucose (UA) NEG Urine Ketones NEG Urine Occult Blood SMALL Urine Nitrite NEG Urine Bilirubin NEG Urine Urobilinogen LESS THAN 2.0 Urine Leukocyte Esterase NEG Urine RBC 6 Urine WBC 1 Urine Amorphous Sediment RARE Urine Bacteria RARE Microscopic Urinalysis Comment CATH-CULTURE IND Date/Time Procedure Status Source Growth 03/06/17 14:00 Urine Culture Received Urine Catheterized Urine Pending 03/06/17 14:00 Aerobic Blood Culture Received Blood Peripheral Pending 03/06/17 14:00 Anaerobic Blood Culture Received Blood Peripheral Pending (Nayeli Serrano) Result Diagram: 03/06/17 1350 03/06/17 1350 Imaging chest Xray head CT results reviewed (Nayeli Serrano) Assessment and Plan Problem List: (1) Acute renal failure Plan: In a patient with normal renal function in October Renal failure appears to be due to obstructive uropathy CT abdomen/pelvis ordered he has acidosis with hyperkalemia, see below at this time monitor urine output he is ordered bicarb drip, has received multiple liters 0.9% NS it remains to be seen if he will require dialysis support (2) Hyperkalemia Plan: Due to reduction in GFR ordered IV calcium, bicarbonate, albuterol also IV insulin and dextrose repeat potassium level (3) Metabolic acidosis Plan: He has high anion gap metabolic acidosis likely due to renal failure bicarb drip ordered (4) Hypoglycemia Plan: history of DM hold oral antihyperglycemic agents continue to monitor glucose he has dextrose added to bicarb drip (5) Sepsis Plan: Lactic acid is elevated source to be determined (Nayeli Serrano) Assessment and Plan patient was seen and examined. Discussed with ER physician and patient's . Above note reviewed, agree with assessment and plan. In addition, patient may have Metformin induced lactic acidosis. Also, he had significant urinary retention. Excellent urine output after Chan placement. Repeat BMP. Monitor potassium. Bicarbonate drip. Dialysis if necessary. (Javi Maria MD) Problem Qualifiers (1) Acute renal failure: Qualified Code: N17.9 - Acute renal failure, unspecified acute renal failure type (2) Sepsis: Qualified Code: A41.9 - Sepsis, due to unspecified organism Nayeli Serrano Mar 06, 2017 16:19 Javi Maria MD Mar 06, 2017 17:44
[2017-03-06] MEDS ORDERED: ONDANSETRON HCL 4 MG/2 ML VIAL IV PUSH ONE (16:30)
--- NOTE | 2017-03-06 16:40 | RADRPT ---
EXAM DATE/TIME: 03/06/2017 15:29 [facility] COMPARISON: CT BRAIN W/O CONTRAST, March 06, 2017, 15:25. INDICATIONS : Abdominal pain ORAL CONTRAST: No oral contrast ingested. RADIATION DOSE: 10.23 CTDIvol (mGy) MEDICAL HISTORY : Diabetes mellitus type 1. SURGICAL HISTORY : None. ENCOUNTER: Initial ACUITY: 1 day PAIN SCALE: 3/10 LOCATION: diffuse abdomen TECHNIQUE: Volumetric scanning of the abdomen and pelvis was performed. Using automated exposure control and ad justment of the mA and/or kV according to patient size, radiation dose was kept as low as reasonably achievable to obtain optimal diagnostic quality images. DICOM format image data is available electro nically for review and comparison. FINDINGS: Imaging through the lung bases demonstrates mild interstitial fibrotic change and COPD. The appearance of the liver, spleen, pancreas and adrenal glands is within normal limits. Examination of the right kidney demonstrates extensive inflammatory change around the UPJ. There is s ome stranding in the perinephric fat as well. There is no significant hydronephrosis. The right urete r is dilated throughout its course down to the pelvis. No stone is seen within the right ureter. There is no hydronephrosis on the left. No stones are seen. The left ureter is mildly dilated through out its course. There is a Mendoza catheter within the bladder. The bladder is decompressed. The visualized loops of small and large bowel are unremarkable. No free peritoneal air is seen. No re troperitoneal adenopathy is present. No iliac or inguinal adenopathy is present. There degenerative changes throughout the spine. CONCLUSION: 1. There is extensive inflammatory change around the right ureteral pelvic junction. There is no sign ificant hydronephrosis in the kidney. There is some inflammatory change around the right kidney as we ll. Examination would suggest either recent stone passage or possible UTI. If symptoms fail to improv e post contrast imaging may be of benefit for further assessment. 2. Atherosclerotic plaquing the coronary arteries. 3. COPD changes in the lung bases. Elliott Salvador MD on March 06, 2017 at 16:31 Board Certified Radiologist. This report was verified electronically.
--- NOTE | 2017-03-06 16:52 | RADRPT ---
EXAM DATE/TIME: 03/06/2017 16:13 [facility] COMPARISON: CHEST SINGLE AP, March 06, 2017, 14:34. INDICATIONS : Left subclavian line placement. MEDICAL HISTORY : Diabetes, transverse myelitis per SURGICAL HISTORY : None. ENCOUNTER: Initial ACUITY: 1 day PAIN SCORE: 0/10 LOCATION: Bilateral chest FINDINGS: The left subclavian lines in good position. There is no pneumothorax identified. There are minimal bi basilar effusions. The osseous structures are intact. CONCLUSION: 1. Left sided subclavian catheter in good position. Elliott Salvador MD on March 06, 2017 at 16:50 Board Certified Radiologist. This report was verified electronically.
[2017-03-06] MEDS ORDERED: RESP: ALBUTEROL 2.5 MG/IPRATROPIUM 0.5 MG NEB (PRN) INH (17:00)
[2017-03-06] MEDS ORDERED: MAGNESIUM HYDROXIDE SUSP 30 ML CUP PO PRN (17:00)
[2017-03-06] MEDS ORDERED: Vancomycin Consult Pharmacy 1 EA OTHER SCH (17:00)
[2017-03-06] MEDS ORDERED: GLUCAGON 1 MG/ML VIAL OTHER PRN (17:00)
[2017-03-06] MEDS ORDERED: LACTULOSE SYRUP 20 GM/30 ML CUP PO PRN (17:00)
[2017-03-06] MEDS ORDERED: BISACODYL 10 MG SUPP RECTAL PRN (17:00)
[2017-03-06] MEDS ORDERED: DEXTROSE 50% IN WATER 50 ML VIAL(D50) IV PRN (17:00)
[2017-03-06] MEDS ORDERED: MISCELLANEOUS NURSING INFORMATION XX SCH (17:00)
[2017-03-06] MEDS ORDERED: SENNOSIDES 8.6 MG TAB PO PRN (17:00)
[2017-03-06] MEDS ORDERED: CHLORHEXIDINE GLUCONATE 2 % 1 PACK (2 CLOTHS) TOP PRN (17:00)
[2017-03-06] MEDS: SODIUM CHLORIDE 0.9% FLUSH 5 ML FLUSH IV FLUSH PRN (17:13)
[2017-03-06] MEDS: SODIUM BICARBONATE 8.4% INJ 150 MEQ in DEXTROSE 5% IN WATE 1000ML INJ 1,000 ML IV SCH ×2 (17:13)
[2017-03-06] MEDS ORDERED: SODIUM POLYSTYRENE SULFONATE SUSP 15 GM/60 ML CUP PO ONE (17:45)
[2017-03-06 18:00] VITALS: BP 157/70; PULSE 66; RESP 19; TEMP 97.9; O2SAT 96
[2017-03-06] MEDS: PANTOPRAZOLE SODIUM 40 MG VIAL IV SCH (18:00)
[2017-03-06] MEDS: INSULIN NovoLIN REGULAR SUPPLEMENTAL SCALE SQ SCH ×4 (18:00→23:49)
--- NOTE | 2017-03-06 18:01 | MH ---
cc: RASHI LAGUNAS M.D. DATE OF ADMISSION: 03/06/2017 DATE OF : 1945. ADMITTING DIAGNOSIS: The patient is a 72 year-old male with past medical history of hypertension, diabetes mellitus, hyperlipidemia, depression, newly diagnosed multiple sclerosis who presented to [facility] emergency department after his home health nurse was unable to get him out of bed and she called 911, the patient was severely hypoglycemic in arrival with blood sugar in the 20's. He was hospitalized at the [facility] in [place] where he was admitted after a fall and newly diagnosed with multiple sclerosis. He was discharged to an outpatient rehabilitation facility and then discharged home from rehab yesterday afternoon. Per emergency department records the patient has been drinking a little water. On arrival to the emergency room he had a blood pressure of 152/71. His laboratory data revealed multiple abnormalities where he was hyperkalemic with potassium level of 7.4 and in acute renal failure with a blood urea nitrogen of 111, creatinine 10.21 and hypoglycemia with blood sugar of 51. He was also found to have elevated lactic acid level at 5.8 and leukocytosis with a white blood count of 16.1. Chest x-ray in the emergency room showed bibasilar streakiness, consistent with a probable atelectasis and elevation of the right Hemidiaphragm. A CT scan of the brain was obtained as well which showed no intracranial abnormalities. Due to his lactic acidosis. A CT of the abdomen and pelvis was obtained which showed extensive inflammatory change around the right ureteral pelvic junction with no evidence of hydronephrosis and inflammatory changes around the right kidney as well. Chronic obstructive pulmonary disease changes noted along the bases. For his hyperkalemia, in the emergency room the patient was given two amps of bicarb. Two grams of calcium gluconate and currently receiving a second liter normal saline. The patient was seen by nephrology service and he is about to receive 10 units of IV insulin D50 and Kayexalate. Also bicarbonate drip has been ordered by the nephrology service. The patient is awake, alert, lying comfortably in bed, in no acute distress. He is on two liters of oxygen with saturation, 97%. Current blood pressure 157/70, with pulse of 67. He denies any chest pain, shortness of breath or abdominal pain. In addition the patient denies any cough or constitutional symptoms. A Mendoza was placed in the emergency room and he had one liter out initially within 30 minutes he has had another 1.5 to 2 liters returned. There was also some hematuria noted in the Mendoza. PAST MEDICAL HISTORY: 1. Significant for diabetes mellitus type 2. 2. Hypertension. 3. Hyperlipidemia. 4. Over active bladder. 5. Depression. 6. Newly diagnosed multiple sclerosis. PAST SURGICAL HISTORY: Unremarkable. ALLERGIES No known drug allergies. SOCIAL HISTORY: The patient is an active smoker with a 60+ year pack of smoking, occasional drinker. MEDICATIONS: At home include; 1. Simvastatin 2. Losartan 3. Atenolol 4. Glipizide 5. Gabapentin 6. Ranitidine 7. Ditropan. 8. Metformin FAMILY HISTORY: Noncontributory. REVIEW OF SYSTEMS Review of systems as per history of present illness, the rest of the review of systems is unremarkable. PHYSICAL EXAMINATION: IN GENERAL; a 73 year-old male lying in bed in no acute respiratory distress. VITAL SIGNS: Afebrile with temperature 97.7, pulse currently 64 to 68, blood pressure 157/70. Saturation 97% on two liters of oxygen. HEAD, EYES, EARS, NOSE, AND THROAT: Atraumatic, normocephalic Pupils equal, round, reactive to light and accommodation. Extraocular muscles intact. Conjunctiva pink, nonicteric sclera. Oral mucosa is normal. NECK: The neck is supple. No jugular venous distention, adenopathy, thyroid, trachea is midline. CARDIOVASCULAR SYSTEM: Regular rate and rhythm, normal S1, S2, no murmurs, rubs or gallops noted. PULMONARY: Bilateral equal entry. No rales or wheezing. ABDOMEN: Soft, nontender, no distention. Positive bowel sounds. EXTREMITIES: No clubbing, cyanosis or edema. NEUROLOGIC: No focal sensory deficits. DATA: White blood count 16.1, hemoglobin 11.5, hematocrit 34, platelet count of 369. Sodium 130, potassium 7.4, chloride 98, co2 14, blood urea nitrogen 111, creatinine 10.21, anion gap 18, blood sugar 51, lactic acid 5.8, troponin less then 0.02 with total creatine kinase of 60. Liver function test are within normal limits. Albumin 2.4, TSH 2.1. INR 1.0, PT 10.7, urinalysis showed small blood, 6 red blood cells, 1 white blood cell, rare bacteria RADIOGRAPHIC STUDIES: CT abdomen and pelvis showed extensive inflammatory changes on the right ureteral pelvic junction and right kidney as well, atherosclerotic plaquing and no coronary arteries. Chronic obstructive pulmonary disease changes in the lung bases. Chest x-ray showed bibasilar atelectasis, elevation of the right hemidiaphragm. CT scan of the brain negative for acute intracranial abnormalities. Electrocardiogram showed sinus bradycardia with first degree AV block, right bundle-branch block. IMPRESSION: 1. Respiratory insufficiency. 2. Acute renal failure. 3. Hyperkalemia. 4. Hyponatremia. 5. Anion gap metabolic acidosis. 6. Lactic acidemia. 7. Hypoglycemia. 8. Leukocytosis. 9. Anemia. 10. Urinary tract infection. 11. Hypotension. 12. History of diabetes mellitus. 13. Hyperlipidemia. 14. Hematuria. 15. Chronic obstructive pulmonary disease. 16. Recent diagnosis of multiple sclerosis. RECOMMENDATIONS: 1. Monitor neurostatus closely and avoid any sedatives. A CT scan of the brain in the emergency room negative for acute intracranial process. 2. Continue oxygen to maintain saturations above 92%. 3. Bronchodilators in the form of duoneb q four. Plus q two as needed for shortness of breath. 4. Monitor heart rate and blood pressure closely and maintain Map greater then 65 mmHg. 5. Patient is finishing up a second liter of crystalloids in addition he is scheduled to see a third liter. 6. Serial lactic acid monitoring. 7. Monitor renal function intake and output and avoid nephrotoxins. Patient was seen by nephrology service. He received two grams of calcium gluconate and two amps of bicarb in the emergency room and is about to receive ten units of IV insulin along with D50 and 30 grams of Kayexalate. We will repeat B-type natriuretic peptide and no changes in hypokalemia we will likely need to undergo hemodialysis. 8. Consult urology service for hematuria. 9. Continue with IV fluids as stated above and agree with bicarb drip, D5w with 3 amps of bicarb at 75 ml per hour. Ordered by nephrology. 10. Keep npo for now and place on Protonix 40 mg daily for gastrointestinal prophylaxis. 11. Continue with broad spectrum antibiotics. We will continue with vancomycin and Zosyn and monitor for signs of infections which include fever and white blood count. Follow up on blood and urine cultures which were preformed in the emergency room. 12. Sliding scale insulin with acute 2 hour check given hypoglycemic episode. 13. Monitor the complete blood count and Coags. 14. Gastrointestinal prophylaxis with Protonix 40 mg daily. Deep venous thrombosis prophylaxis with sequential compression devices. Hold off on chemical anticoagulation prophylaxis for now given hematuria. 15. Left subclavian central line was placed by emergency department physician. 16. Critical care time 40 minutes. MD MARK Chambers/dennys /5:02 PM /5:17 PM
[2017-03-06] MEDS: TAMSULOSIN HCL 0.4 MG CAP PO SCH (18:15)
--- NOTE | 2017-03-06 19:09 | MB ---
cc: STEPHANIE KILGORE MD DATE OF CONSULTATION 03/06/2017 REASON FOR CONSULTATION 1. Acute urinary retention 2. Gross hematuria. 3. Acute renal failure. HISTORY OF PRESENT ILLNESS The patient is a 72-year-old male with history of diabetes and newly diagnosed multiple sclerosis who presented to [facility] emergency department today after his [facility] health nurse was unable to get him on a ventilator and she had called 911. Upon transferring out of the emergency room, he was found to be severely hypoglycemic with pressure in the 20s. He was hospitalized back to the [facility] three weeks ago after a fall and was newly diagnosis with multiple sclerosis. He was discharged to an outpatient rehabilitation facility and then was discharged home for rehab yesterday afternoon. The patient has a history of intervention and is a poor historian. However, both his and daughter are at bedside and majority of the history is from them. Apparently when he got home yesterday he had very little p.o. intake and had urinated very little. He started to complain of lower abdominal pain and abdominal bloating. He also seemed to become more disoriented. At that time, the home health nurse decided to call 911 and he was taken to the ER for further evaluation. Upon arrival, he was found to be in acute renal failure with creatinine of 10.2 and potassium of 7.4 and severely hypoglycemic. His lactic acid was elevated at 5.8 and white count 16,000. His CT abdomen and pelvis was obtained which showed extensive inflammatory change around the right ureteral pelvic junction with no evidence of hydronephrosis and some perinephric stranding around the right kidney. He had a Mendoza catheter that was placed in the emergency room and initially one liter of urine was expressed following by another two liters a half an hour later. There was also blood in his Mendoza catheter following insertion. Per the daughter, he has had some my urinary issues for quite some time associated with urinary incontinence and occasional dysuria. Denies any history of kidney stones or urinary tract infections in the past. Denies family history of prostate cancer. PAST MEDICAL HISTORY 1. Diabetes type 2, 2. Hypertension. 3. Hyperlipidemia 4. Overactive bladder 5. Depression 6. Multiple sclerosis 7. Circumcision. ALLERGIES Known drug allergies. SOCIAL HISTORY The patient is an active smoker of year pack of smoking, occasional drinker, no illicit drugs. MEDICATIONS At home, 1. Simvastatin 2. Losartan 3. Atenolol 4. Glipizide 5. 6. Ranitidine 7. Ditropan 8. Metformin. FAMILY HISTORY Negative for urolithiasis. REVIEW OF SYSTEMS Genitourinary review of systems unobtainable at this time. PHYSICAL EXAMINATION VITAL SIGNS: Temperature 97.7. pulse 55. Respiratory rate 18, BP 150/71, satting 97% on 2 liters nasal cannula. GENERAL: He is awake but confused. He is not currently oriented to time or place. HEENT/NECK: Normocephalic, atraumatic. Neck is supple. Trachea is midline. Eyes - No scleral icterus. Extraocular muscles intact. LUNGS: Clear to auscultation bilaterally. No wheezes, rales or rhonchi. HEART: Regular rhythm. No murmurs, gallops, rubs. ABDOMEN: Soft but obese, nontender, nondistended. Positive bowel sounds. GENITOURINARY: His penis is circumcised. Testes are descended bilaterally, normal size and consistency. Catheter is draining tere colored urine. RECTAL: Exam not indicated. EXTREMITIES: Nontender, 1+ bilateral pitting edema. PSYCHIATRIC: He is agitated, confused. NEUROLOGIC: Cranial nerves II-XII intact. Strength 5/5 in all four extremities. SKIN: No ulcers or rashes, pink and moist. LABORATORY DATA White count 16.1, hemoglobin 11.5, hematocrit 34.2, platelet count 369. Sodium 130, potassium 7.4, chloride 98, bicarb 14.4, BUN 111, creatinine 10.21, lactic acid 5.8. IMAGING STUDIES CT abdomen and pelvis without contrast image is reviewed. Agree with radiologist's report. The patient has a inflammatory on the right UPJ with no evidence of any hydronephrosis. No renal masses. ASSESSMENT The patient is a 72-year-old male with history of diabetes and newly-diagnosed MS who presents with acute urinary retention with renal failure and longstanding urinary incontinence. PLAN Recommend to continue with Mendoza catheter at this time, monitor for post obstructive diuresis. Replace electrolytes as needed. I would follow the creatinine as source of his acute renal failure could be from his obstructive uropathy. We will start the patient on Flomax 0.4 mg p.o. daily and hold his Ditropan. His urinary retention could be multifactorial as it could be the result of his enlarged prostate issues as well as multiple sclerosis. He likely will need urodynamics as an outpatient to determine the etiology of his urinary retention as if this is a prostate issue, he likely would need a TURP in the future to relieve the obstruction and remove the Mendoza catheter to prevent renal failure in the future. Gross hematuria is likely from bladder overdistention. However, given findings on CT, he will need a cystoscopy as outpatient to complete hematuria work up. The case was discussed with and daughter at the bedside. Thank you for this consult. MD LOLY Nicholas/ /6:08 PM /6:23 PM TEOFILO
[2017-03-06 20:00] VITALS: BP 164/76; PULSE 78; RESP 27; TEMP 97.5; O2SAT 94
[2017-03-06 20:19] LABS: BICARBONATE 18.5 MEQ/L (21.0-32.0); POTASSIUM 6.2 MEQ/L (3.5-5.1)
[2017-03-06 20:20] VITALS: O2SAT 98
[2017-03-06] MEDS: DOCUSATE SODIUM 50 MG/SENNA 8.6 MG TAB PO SCH (21:00)
[2017-03-06] MEDS: RESP: ALBUTEROL 2.5 MG/IPRATROPIUM 0.5 MG NEB (SCH) INH ×2 (21:37→23:23)
[2017-03-06] MEDS: PIPERACIL-TAZO 2.25 GM PREMIX 50 ML IV SCH (21:39)
[2017-03-06 22:00] VITALS: PULSE 70
[2017-03-06] MEDS: SODIUM POLYSTYRENE SULFONATE SUSP 15 GM/60 ML CUP PO SCH (22:00)
[2017-03-06] MEDS ORDERED: SODIUM BICARBONATE 8.4% SOLN 50 MEQ/50 ML VIAL IV PUSH ONE (22:00)
[2017-03-07] VITALS (23 sets, daily range): BP systolic 98–178; BP diastolic 51–78; PULSE 74–103; RESP 14–23; TEMP 97.2–99.1; O2SAT 87–100
[2017-03-07] MEDS: PIPERACIL-TAZO 2.25 GM PREMIX 50 ML IV SCH ×3 (01:54→17:21)
[2017-03-07] MEDS: SODIUM POLYSTYRENE SULFONATE SUSP 15 GM/60 ML CUP PO SCH ×2 (01:57→05:39)
[2017-03-07] MEDS: INSULIN NovoLIN REGULAR SUPPLEMENTAL SCALE SQ SCH ×10 (02:00→23:56)
[2017-03-07] MEDS: RESP: ALBUTEROL 2.5 MG/IPRATROPIUM 0.5 MG NEB (SCH) INH ×6 (03:44→23:21)
[2017-03-07] MEDS: CHLORHEXIDINE GLUCONATE 2 % 1 PACK (2 CLOTHS) TOP SCH (04:00)
[2017-03-07] MEDS: SODIUM BICARBONATE 8.4% INJ 150 MEQ in DEXTROSE 5% IN WATE 1000ML INJ 1,000 ML IV SCH ×2 (04:54)
[2017-03-07 06:02] LABS: BASOPHIL % 0.1 % (0.0-2.0); EOSINOPHIL % 0.1 % (0.0-4.0); HEMATOCRIT 28.9 % (39.0-51.0); HEMO FLAGS DIFF FINAL; LYMPH % 12.1 % (9.0-44.0); LYMPHOCYTE # 1.6 TH/MM3 (1.0-4.8); MEAN CELL VOLUME 89.3 FL (80.0-100.0); MEAN CORPUSCULAR HEMOGLOBIN 30.3 PG (27.0-34.0); MONO % 9.6 % (0.0-8.0); NEUT % 78.1 % (16.0-70.0); PLATELET COUNT 313 TH/MM3 (150-450); RED BLOOD COUNT 3.23 MIL/MM3 (4.50-5.90); WHITE BLOOD COUNT 12.9 TH/MM3 (4.0-11.0)
[2017-03-07 06:38] LABS: ANION GAP 13 MEQ/L (5-15); AST (GOT) 9 U/L (15-37); BICARBONATE 24.3 MEQ/L (21.0-32.0); BLOOD UREA NITROGEN 102 MG/DL (7-18); CHLORIDE 101 MEQ/L (98-107); GLOMERULAR FILTRATION RATE 6 ML/MIN (>89); POTASSIUM 5.6 MEQ/L (3.5-5.1); SODIUM (NA) 138 MEQ/L (136-145)
[2017-03-07 06:41] LABS: ALKALINE PHOSPHATASE 50 U/L (45-117); ALT (GPT) 15 U/L (12-78); TOTAL BILIRUBIN ADULT 0.2 MG/DL (0.2-1.0)
[2017-03-07] MEDS: DOCUSATE SODIUM 50 MG/SENNA 8.6 MG TAB PO SCH ×2 (08:52→21:00)
[2017-03-07] MEDS ORDERED: VANCOMYCIN 1,000 MG/NS 250 ML IV ONE ×2 (09:00)
[2017-03-07] MEDS: PANTOPRAZOLE SODIUM 40 MG VIAL IV SCH (09:21)
[2017-03-07] MEDS: TAMSULOSIN HCL 0.4 MG CAP PO SCH (09:21)
[2017-03-07] MEDS ORDERED: SODIUM BICARBONATE 8.4% INJ 50 MEQ in DEXT 5%-NACL 0.45% 1000 ML INJ 1,000 ML IV SCH (11:00)
[2017-03-07] MEDS ORDERED: MIDAZOLAM HCL 2 MG/2 ML VIAL IV PUSH ONE (12:30)
[2017-03-07] MEDS ORDERED: fentaNYL CITRATE 250 MCG/5 ML AMP IV PUSH ONE (12:30)
[2017-03-07] MEDS ORDERED: SODIUM CHLOR 0.9% 1000 ML INJ 1,000 ML IV PRN ×2 (12:37)
--- NOTE | 2017-03-07 12:37 | HHI.NPPN ---
Subjective General Problems: Edema Renal Failure: Acute Interval History His urine output is excellent but his creatinine did not improve as expected. Hyperkalemic today. Spoke with . (Nayeli Serrano) Review of Systems General Constitutional: Fatigue (Nayeli Serrano) Respiratory Lungs: SOB, Cough (Nayeli Serrano) Cardiovascular Cardiac: Edema (Nayeli Serrano) Objective Data Data 03/06/17 03/07/17 18:59 06:59 Intake Total 1636 ml Output Total 1900 ml 1500 ml Balance -1900 ml 136 ml Intake IV Total 1636 ml Output Urine Total 1900 ml 1500 ml # Voids 0 # Bowel Movements 2 Vital Signs Date Time Temp Pulse Resp B/P Pulse Ox O2 Delivery O2 Flow Rate FiO2 03/07/17 11:00 77 17 127/59 97 03/07/17 10:08 82 21 132/59 95 03/07/17 10:00 81 03/07/17 09:00 79 18 138/66 87 03/07/17 08:01 97.5 74 14 98/55 100 03/07/17 08:00 78 03/07/17 07:59 100 Nasal Cannula 3.00 03/07/17 07:00 77 19 131/61 100 03/07/17 06:02 83 03/07/17 04:00 77 18 100 03/07/17 04:00 98.4 77 18 158/78 100 03/07/17 03:46 98 Nasal Cannula 4.00 03/07/17 02:00 84 03/07/17 00:00 95 03/07/17 00:00 97.2 95 23 178/77 91 03/06/17 22:00 70 03/06/17 20:20 98 Nasal Cannula 4.00 03/06/17 20:00 78 03/06/17 20:00 97.5 78 27 164/76 94 03/06/17 18:00 97.9 66 19 157/70 96 03/06/17 14:10 65 18 97 Nasal Cannula 2 03/06/17 13:51 97.7 61 18 152/71 96 Nasal Cannula 2 03/06/17 13:50 18 96 Nasal Cannula 2 (Nayeli Serrano) -: 03/07/17 0430 03/07/17 0430 Microbiology 03/06/17 Aerobic Blood Culture - Preliminary, Resulted NO GROWTH IN 1 DAY 03/06/17 Anaerobic Blood Culture - Preliminary, Resulted NO GROWTH IN 1 DAY 03/06/17 Aerobic Blood Culture - Preliminary, Resulted NO GROWTH IN 1 DAY 03/06/17 Anaerobic Blood Culture - Preliminary, Resulted NO GROWTH IN 1 DAY 03/06/17 Urine Culture, Received Pending Imaging Last Impressions Head CT 03/06/17 1352 Signed Impressions: Service Date/Time: Monday, March 06, 2017 15:25 - CONCLUSION: 1. No acute intracranial abnormality. 2. Atrophy and chronic small vessel ischemic change. Jeremy Rutherford Jr., MD Chest X-Ray 03/06/17 1352 Signed Impressions: Service Date/Time: Monday, March 06, 2017 14:34 - CONCLUSION: 1. Bibasilar streakiness consistent with probable atelectasis. 2. Elevation of the right hemidiaphragm. 3. Degenerative changes and mild scoliosis of the thoracic spine. Krishan Mitchell MD Abdomen/Pelvis CT 03/06/17 0000 Signed Impressions: Service Date/Time: Monday, March 06, 2017 15:29 - CONCLUSION: 1. There is extensive inflammatory change around the right ureteral pelvic junction. There is no significant hydronephrosis in the kidney. There is some inflammatory change around the right kidney as well. Examination would suggest either recent stone passage or possible UTI. If symptoms fail to improve post contrast imaging may be of benefit for further assessment. 2. Atherosclerotic plaquing the coronary arteries. 3. COPD changes in the lung bases. Elliott Salvador MD Tubes & Lines: Chan (Nayeli Serrano) Physical Exam General Appearance: Well Developed, Well Nourished, Comfortable, Obese (Nayeli SerranoP) Throat Throat Exam: Oral Mucosa [place] & Moist (Nayeli Serrano) Pulmonary Resp Exam: Crackles, Rhonchi, Decreased Bases Resp Remarks tachypneic (Nayeli Serrano) Gastrointestinal/Abdomen GI Exam: Soft, Non-Tender, Bowel Sounds Present GI Remarks ascites, umbilical hernia (Nayeli Serrano) Genitourinary Remarks hematuria in chan (Nayeli Serrano) Musculoskeletal MS Exam: Joints Intact, Normal Tone (Nayeli Serrano) Integumentary Skin Exam: Warm, Dry (Nayeli Serrano) Extremeties Extremities Exam: Pedal Pulses Palpable, Trace Edema (Nayeli Serrano) Neurologic Neuro Exam: Alert, Awake, Oriented, Speech Clear, Moving All Extremities ( Nayeli Serrano) Psychiatric Psych Exam: Appropriate Responses (Nayeli Serrano) VTE Prophylaxis Device: SCDs (Nayeli Serrano) Assessment/Plan Discussed Condition With: Patient, Spouse Assessment Summary: URI/Acute Renal Failure, Fluid/Volume Overload, Hypertension Electrolyte Assessment: Hyperkalemia Problem List: (1) Acute renal failure Plan: In a patient with normal renal function in October Renal failure thought to be due to obstructive uropathy, he has excellent urine output however creatinine only slightly improved overnight he needs dialysis, D/W Dr. Lucas who will place vascat D/W who agrees to treatment, HD orders have been entered HD today ( 2 hour treatment), and again tomorrow acidosis should correct with dialysis IVF changed to D5, 1/2 NS with 50 mEq of bicarb, will stop when dialysis is started obtain renal panel tomorrow CT abdomen showing ascites, possible cirrhosis he developed hematuria due to distended bladder, urology has evaluated, started on flomax (2) Hyperkalemia Plan: Due to reduction in GFR should correct with dialyzed, to be dialyzed on a 1K bath (3) Metabolic acidosis Plan: likely due to renal failure, also may be due to metformin use high lactic acidosis stop bicarb drip, needs dialysis (4) Hypoglycemia Plan: continue to monitor glucose (5) Sepsis Plan: high lactic acid, ordered Zosyn cultures have been drawn (Nayeli Serrano) Plan patient was seen and examined. Agree with above assessment and plan. Renal function did noot improve as well as I had hoped even though he had bladder retention and had brisk urine output after placement of Chan. Dialysis today, reassess daily. Prognosis is guarded. Has multiple medical problems including cirrhosis of the liver, and portal hypertension. (Javi Maria MD) Problem Qualifiers (1) Acute renal failure: Qualified Code: N17.9 - Acute renal failure, unspecified acute renal failure type (2) Sepsis: Qualified Code: A41.9 - Sepsis, due to unspecified organism Nayeli Serrano Mar 07, 2017 12:37 Javi Maria MD Mar 07, 2017 18:19
[2017-03-07] MEDS ORDERED: HEPARIN SODIUM - IV 10,000 UNITS/10 ML VIAL IVF PRN (12:45)
[2017-03-07] MEDS ORDERED: cloNIDine HCL 0.1 MG TAB PO PRN (12:45)
[2017-03-07] MEDS ORDERED: NITROGLYCERIN 0.4 MG SL 25 TABS/BTL SL PRN (12:45)
[2017-03-07] MEDS ORDERED: ALBUMIN HUMAN 25% 25 GM/100 ML BAGP IV PRN (12:45)
[2017-03-07] MEDS ORDERED: ONDANSETRON HCL 4 MG/2 ML VIAL IV PRN (12:45)
[2017-03-07] MEDS ORDERED: GELATIN 12 MM/7 MM FOAM TOP PRN (12:45)
[2017-03-07] MEDS ORDERED: MANNITOL 12.5 GM/50 ML VIAL IV PRN (12:45)
[2017-03-07] MEDS ORDERED: ACETAMINOPHEN 325 MG TAB PO PRN (12:45)
[2017-03-07] MEDS ORDERED: diphenhydrAMINE HCL 25 MG CAP PO PRN (12:45)
--- NOTE | 2017-03-07 13:24 | PD.PROCEDR ---
Procedure Note Procedure Diagnosis: Acute renal failure Indications: Hemodialysis Consent: Obtained from Anesthesia: see MAR Description of the Procedure: The patient was placed in the supine, mild- Trendelenburg position. The area was prepped and draped sterilely. A 19g needle was inserted under negative pressure aspiration and dark venous blood was obtained. A guidewire was inserted easily without resistance. A small incision was made using a #11 blade. Using a modified Seldinger technique, the dilator and 20 F catheter were advanced over the guidewire without resistance. All ports were aspirated and flushed, and had brisk blood return. The line was secured at right IJ at the skin using 2-0 silk interrupted sutures. A Biopatch and Transparent sterile dressing were applied. There were no immediate complications noted. There was minimal EBL. The patient tolerated the procedure well. Ultrasound Guidance: Ultrasound guidance was used to identify the right IJ. The vascular anatomy was normal. The vessel was cannulated under direct, real-time ultrasound visualization. After placement of the guidewire, confirmation of the guidewire in the lumen of the vessel was made using ultrasound visualization, before dilation of the tract. A Chest x-ray has been ordered. I personally performed the procedure. Kelly Lucas MD Mar 07, 2017 13:24
--- NOTE | 2017-03-07 13:45 | RADRPT ---
EXAM DATE/TIME: 03/07/2017 13:22 [place] COMPARISON: CHEST SINGLE AP, March 06, 2017, 16:13. INDICATIONS : Line placement. MEDICAL HISTORY : Diabetes mellitus type II. SURGICAL HISTORY : None. ENCOUNTER: Subsequent ACUITY: 2 days PAIN SCORE: Non-responsive. LOCATION: Bilateral chest FINDINGS: A single AP semierect view of the chest was obtained and demonstrates interval placement of a right internal jugular central venous line with the tip projected over the superior vena cava. There is no pneumothorax. The left subclavian central venous catheter remains in place. There is mild patchy opac ity in both perihilar regions and lung bases. The left costophrenic angle remains blunted. The heart size is at the upper limits of normal. CONCLUSION: 1. Interval placement of right internal jugular central venous line with no pneumothorax. 2. Patchy opacity in both lungs and probable small left effusion. Tushar Natarajan MD on March 07, 2017 at 13:36 Board Certified Radiologist. This report was verified electronically.
[2017-03-07] MEDS: HEPARIN SODIUM - IV 10,000 UNITS/10 ML VIAL PRN (14:24)
[2017-03-07] MEDS: SODIUM CHLOR 0.9% 1000 ML INJ 1,000 ML IV PRN (14:24)
[2017-03-07] MEDS: GENTAMICIN SULFATE (DIALYSIS USE ONLY) 20 MG/2 ML VIAL IV PRN (14:25)
--- NOTE | 2017-03-07 14:33 | HHI.CCPN ---
Subjective Remarks/Hospital Course The patient is a 72 year-old male with past medical history of hypertension, diabetes mellitus, hyperlipidemia, depression, newly diagnosed multiple sclerosis who presented to [facility] emergency department after his home health nurse was unable to get him out of bed and she called 911, the patient was severely hypoglycemic in arrival with blood sugar in the 20's. He was hospitalized at the [facility] in [place] where he was admitted after a fall and newly diagnosed with multiple sclerosis. He was discharged to an outpatient rehabilitation facility and then discharged home from rehab yesterday afternoon. Per emergency department records the patient has been drinking a little water. On arrival to the emergency room he had a blood pressure of 152/71. His laboratory data revealed multiple abnormalities where he was hyperkalemic with potassium level of 7.4 and in acute renal failure with a blood urea nitrogen of 111, creatinine 10.21 and hypoglycemia with blood sugar of 51. He was also found to have elevated lactic acid level at 5.8 and leukocytosis with a white blood count of 16.1. Chest x-ray in the emergency room showed bibasilar streakiness, consistent with a probable atelectasis and elevation of the right Hemidiaphragm. A CT scan of the brain was obtained as well which showed no intracranial abnormalities. Due to his lactic acidosis. A CT of the abdomen and pelvis was obtained which showed extensive inflammatory change around the right ureteral pelvic junction with no evidence of hydronephrosis and inflammatory changes around the right kidney as well. Chronic obstructive pulmonary disease changes noted along the bases. For his hyperkalemia, in the emergency room the patient was given two amps of bicarb. Two grams of calcium gluconate and currently receiving a second liter normal saline. The patient was seen by nephrology service and he is about to receive 10 units of IV insulin D50 and Kayexalate. Also bicarbonate drip has been ordered by the nephrology service. The patient is awake, alert, lying comfortably in bed, in no acute distress. He is on two liters of oxygen with saturation, 97%. Current blood pressure 157/70, with pulse of 67. He denies any chest pain, shortness of breath or abdominal pain. In addition the patient denies any cough or constitutional symptoms. A Mendoza was placed in the emergency room and he had one liter out initially within 30 minutes he has had another 1.5 to 2 liters returned. There was also some hematuria noted in the Mendoza. Subjective : 03/07: Potassium level remains elevated,non sodium bicarbonate drip. Plan for a vascular catheter placement with initiation of hemodialysis today. Discussed with via telephone. No change in mental status. Patient continues on facemask with frequent NT suctioning. Objective Vital Signs Date Time Temp Pulse Resp B/P Pulse Ox O2 Delivery O2 Flow Rate FiO2 03/07/17 13:00 86 18 102/55 99 03/07/17 08:01 97.5 03/07/17 07:59 Nasal Cannula 3.00 Intake and Output 03/06/17 03/06/17 03/07/17 08:00 16:00 00:00 Intake Total 739 ml Output Total 1000 ml 1900 ml Balance -1000 ml -1161 ml Result Diagram: 03/07/17 0430 03/07/17 0430 Imaging Last Impressions Chest X-Ray 03/07/17 0000 Signed Impressions: Service Date/Time: Tuesday, March 07, 2017 13:22 - CONCLUSION: 1. Interval placement of right internal jugular central venous line with no pneumothorax. 2. Patchy opacity in both lungs and probable small left effusion. Tushar Natarajan MD Head CT 03/06/17 1352 Signed Impressions: Service Date/Time: Monday, March 06, 2017 15:25 - CONCLUSION: 1. No acute intracranial abnormality. 2. Atrophy and chronic small vessel ischemic change. Jeremy Rutherford Jr., MD Abdomen/Pelvis CT 03/06/17 0000 Signed Impressions: Service Date/Time: Monday, March 06, 2017 15:29 - CONCLUSION: 1. There is extensive inflammatory change around the right ureteral pelvic junction. There is no significant hydronephrosis in the kidney. There is some inflammatory change around the right kidney as well. Examination would suggest either recent stone passage or possible UTI. If symptoms fail to improve post contrast imaging may be of benefit for further assessment. 2. Atherosclerotic plaquing the coronary arteries. 3. COPD changes in the lung bases. Elliott Salvador MD Objective Remarks GENERAL: Well-developed well-nourished confused male SKIN: Warm and dry. HEAD: Atraumatic. Normocephalic. EYES: Pupils equal and round. No scleral icterus. No injection or drainage. ENT: No nasal bleeding or discharge. Mucous membranes pink and moist. NECK: Trachea midline. No JVD. CARDIOVASCULAR: Normal rate, regular rhythm. RESPIRATORY: No accessory muscle use. Clear to auscultation. Breath sounds equal bilaterally. GASTROINTESTINAL: Abdomen soft, obese ,non-tender, nondistended. No guarding. MUSCULOSKELETAL: Extremities without clubbing, cyanosis, or trace peripheral edema bilateral extremities. No obvious deformities. NEUROLOGICAL: Awake and alert. RASS 0. No gross focal/sensory deficits. Occasionally follows commands in all 4 extremities. Procedures 03/07 Vas-Cath placement 03/07 hemodialysis Line: Central Venous Catheter Side: Right Location: Internal, Jugular Reason for Continuation Vascular catheter for hemodialysis A/P Assessment and Plan Assessment 1. Respiratory insufficiency. 2. Acute renal failure. 3. Hyperkalemia. 4. Hyponatremia-resolved 5. Anion gap metabolic acidosis. 6. Lactic acidemia. 7. Hypoglycemia. 8. Leukocytosis. 9. Anemia. 10. Urinary tract infection. 11. Hypotension-resolved 12. History of diabetes mellitus. 13. Hyperlipidemia. 14. Hematuria. 15. Chronic obstructive pulmonary disease 16. Recent diagnosis of multiple sclerosis RECOMMENDATIONS: 1. Monitor neurostatus closely and avoid any sedatives. A CT scan of the brain in the emergency room negative for acute intracranial process. 2. Continue oxygen to maintain saturations above 92%. 3. Bronchodilators in the form of duoneb q 4 hours, and q two as needed for shortness of breath. 4. Monitor heart rate and blood pressure closely and maintain MAP greater then 65 mmHg. 5. Discontinue sodium bicarbonate infusion 6. Serial lactic acid monitoring. 7. Nephrology following, Dr. Maria -vascular catheter placement, 03/07 initiation of hemodialysis 8. Consult urology service for hematuria. 9. Keep npo for now and place on Protonix 40 mg daily for gastrointestinal prophylaxis. 11. Continue with broad spectrum antibiotics. We will continue with vancomycin and Zosyn and monitor for signs of infections which include fever and white blood count. Follow up on blood and urine cultures which were performed in the emergency room. NGTD 12. Sliding scale insulin with glucose monitoring per ICU protocol 13. Monitor the complete blood count and Coags. 14. Gastrointestinal prophylaxis with Protonix 40 mg daily. Deep venous thrombosis prophylaxis with sequential compression devices. Hold off on chemical anticoagulation prophylaxis for now given hematuria. 15. Left subclavian central line was placed by emergency department physician. Level 3 Physician Kelly Acevedo MD Mar 07, 2017 14:33
[2017-03-07] MEDS ORDERED: fentaNYL CITRATE 250 MCG/5 ML AMP IV SCH (16:30)
[2017-03-07] MEDS ORDERED: MIDAZOLAM HCL 2 MG/2 ML VIAL IV SCH ×2 (16:30)
[2017-03-08] VITALS (13 sets, daily range): BP systolic 93–150; BP diastolic 57–76; PULSE 90–111; RESP 22–27; TEMP 97.9–99.6; O2SAT 92–99
[2017-03-08] MEDS: INSULIN NovoLIN REGULAR SUPPLEMENTAL SCALE SQ SCH ×10 (02:00→23:47)
[2017-03-08] MEDS: PIPERACIL-TAZO 2.25 GM PREMIX 50 ML IV SCH ×3 (02:09→19:37)
[2017-03-08] MEDS: CHLORHEXIDINE GLUCONATE 2 % 1 PACK (2 CLOTHS) TOP SCH (02:09)
[2017-03-08] MEDS: RESP: ALBUTEROL 2.5 MG/IPRATROPIUM 0.5 MG NEB (SCH) INH ×5 (03:39→19:58)
[2017-03-08 04:00] LABS: HEMATOCRIT 25.1 % (39.0-51.0); MEAN CELL VOLUME 89.1 FL (80.0-100.0); MEAN CORPUSCULAR HEMOGLOBIN 30.4 PG (27.0-34.0); MEAN CORPUSCULAR HGB CONC 34.2 % (32.0-36.0); PLATELET COUNT 260 TH/MM3 (150-450); RED BLOOD COUNT 2.81 MIL/MM3 (4.50-5.90); RED CELL DISTRIBUTION WIDTH 13.2 % (11.6-17.2); REVIEW FLAG FINAL; WHITE BLOOD COUNT 12.6 TH/MM3 (4.0-11.0)
[2017-03-08 04:37] LABS: BICARBONATE 28.5 MEQ/L (21.0-32.0); MAGNESIUM 1.7 MG/DL (1.5-2.5)
[2017-03-08 05:00] LABS: CALCIUM-PROTEIN CORRECTED 8.1 MG/DL (8.5-10.1)
--- NOTE | 2017-03-08 06:09 | RADRPT ---
EXAM DATE/TIME: 03/08/2017 04:22 [facility] COMPARISON: CHEST SINGLE AP, March 07, 2017, 13:22. INDICATIONS : Shortness of breath, possible pulmonary disease. MEDICAL HISTORY : Diabetes mellitus type II. SURGICAL HISTORY : None. ENCOUNTER: Subsequent ACUITY: 3 days PAIN SCORE: Non-responsive. LOCATION: Bilateral chest FINDINGS: A right IJ catheter and left subclavian catheter stable in position. Patchy infiltrates in the perip page of the right lung, right infrahilar region stable from prior. Slight improved aeration left low er lung with decreasing left lower lung infiltrates. CONCLUSION: Stable no consolidative infiltrates in the right lung and improving infiltrates at the left base. Jeremy Dee MD on March 08, 2017 at 6:07 Board Certified Radiologist. This report was verified electronically.
--- NOTE | 2017-03-08 08:58 | EKG ---
Date Performed: 03/06/2017 Time Performed: 14:23:36 PTAGE: 72 years EKG: SINUS BRADYCARDIA WITH FIRST DEGREE AV BLOCK RIGHT BUNDLE BRANCH BLOCK ABNORMAL ECG NO PREVIOUS TRACING DOCTOR: Jason Low Interpretating Date/Time 03/08/2017 08:54:08
[2017-03-08] MEDS: DOCUSATE SODIUM 50 MG/SENNA 8.6 MG TAB PO SCH ×2 (09:00→20:31)
[2017-03-08] MEDS: TAMSULOSIN HCL 0.4 MG CAP PO SCH (09:00)
[2017-03-08] MEDS: PANTOPRAZOLE SODIUM 40 MG VIAL IV SCH (09:00)
--- NOTE | 2017-03-08 09:47 | RADRPT ---
EXAM DATE/TIME: 03/08/2017 09:23 [facility] COMPARISON: CHEST SINGLE AP, March 06, 2017, 16:13. CHEST SINGLE AP, March 08, 2017, 4:22. INDICATIONS : Short of breath. MEDICAL HISTORY : Diabetes mellitus type II. SURGICAL HISTORY : None. ENCOUNTER: Initial ACUITY: 2 days PAIN SCORE: Non-responsive. LOCATION: Bilateral chest FINDINGS: The heart is enlarged. There are small bilateral effusions. The left subclavian central line and righ t jugular Vas-Cath are in good position. There is diffuse interstitial prominence suggesting congesti ve failure. The exam is unchanged from previous. CONCLUSION: 1. Support equipment in good position. 2. 3. Continued effusions and diffuse interstitial prominence suggesting congestive failure. Stable comp ared to prior dated 03/08/17 at 4: 4. 22 AM.. Appearance of the chest has worsened when compared to previous exam dated 03/06/17. Elliott Salvador MD on March 08, 2017 at 9:43 Board Certified Radiologist. This report was verified electronically.
[2017-03-08] MEDS: HEPARIN SODIUM - IV 10,000 UNITS/10 ML VIAL PRN (10:37)
[2017-03-08] MEDS: GENTAMICIN SULFATE (DIALYSIS USE ONLY) 20 MG/2 ML VIAL IV PRN (10:37)
[2017-03-08] MEDS: SODIUM CHLOR 0.9% 1000 ML INJ 1,000 ML IV PRN (10:38)
--- NOTE | 2017-03-08 14:55 | HHI.NPPN ---
Subjective General Problems: Edema Renal Problems: Uremia Renal Failure: Acute Interval History He was dialyzed again today. Creatinine is better. He is very confused, upper extremities restrained. (Nayeli Serrano) Review of Systems General General Remarks unable to obtain due to altered mental status (Nayeli Serrano) Objective Data Data 03/07/17 03/08/17 19:00 07:00 Intake Total 300 ml 182 ml Output Total 2275 ml 215 ml Balance -1975 ml -33 ml Intake IV Total 300 ml 182 ml Output Urine Total 275 ml 215 ml Hemodialysis 2000 ml # Bowel Movements 3 0 Vital Signs Date Time Temp Pulse Resp B/P Pulse Ox O2 Delivery O2 Flow Rate FiO2 03/08/17 14:00 96 03/08/17 12:00 98.4 99 27 109/70 99 03/08/17 12:00 99 03/08/17 11:30 96 Nasal Cannula 4.00 03/08/17 10:00 90 03/08/17 08:03 94 Simple Mask 8.00 03/08/17 08:00 98.1 92 22 107/76 94 03/08/17 08:00 98 03/08/17 07:00 94 Simple Mask 6.00 03/08/17 06:00 92 03/08/17 04:00 98.9 100 24 93/61 92 03/08/17 04:00 100 03/08/17 02:00 100 03/08/17 00:00 99.6 111 23 150/73 94 03/08/17 00:00 111 03/07/17 22:00 102 03/07/17 20:00 99.1 103 21 116/54 97 03/07/17 20:00 103 03/07/17 20:00 97 Simple Mask 6.00 03/07/17 19:26 96 Simple Mask 6.00 03/07/17 18:00 96 18 106/55 100 03/07/17 18:00 94 03/07/17 17:00 93 18 108/54 100 03/07/17 16:00 87 03/07/17 16:00 98.1 93 23 98/51 92 03/07/17 15:00 86 19 117/63 95 (Nayeli Serrano) -: 03/08/17 0345 03/08/17 0345 Imaging Last 72 hours Impressions Chest X-Ray 03/08/17 0600 Signed Impressions: Service Date/Time: February 04:22 - CONCLUSION: Stable no consolidative infiltrates in the right lung and improving infiltrates at the left base. Jeremy Dee MD Chest X-Ray 03/08/17 0000 Signed Impressions: Service Date/Time: February 09:23 - CONCLUSION: 1. Support equipment in good position. 2. 3. Continued effusions and diffuse interstitial prominence suggesting congestive failure. Stable compared to prior dated at 4: 4. 22 AM.. Appearance of the chest has worsened when compared to previous exam dated 03/06/17. Elliott Salvador MD Chest X-Ray 03/07/17 0000 Signed Impressions: Service Date/Time: Tuesday, March 07, 2017 13:22 - CONCLUSION: 1. Interval placement of right internal jugular central venous line with no pneumothorax. 2. Patchy opacity in both lungs and probable small left effusion. Tushar Natarajan MD Head CT 03/06/17 1352 Signed Impressions: Service Date/Time: Monday, March 06, 2017 15:25 - CONCLUSION: 1. No acute intracranial abnormality. 2. Atrophy and chronic small vessel ischemic change. Jeremy Rutherford Jr., MD Chest X-Ray 03/06/17 1352 Signed Impressions: Service Date/Time: Monday, March 06, 2017 14:34 - CONCLUSION: 1. Bibasilar streakiness consistent with probable atelectasis. 2. Elevation of the right hemidiaphragm. 3. Degenerative changes and mild scoliosis of the thoracic spine. Krishan Mitchell MD Chest X-Ray 03/06/17 0000 Signed Impressions: Service Date/Time: Monday, March 06, 2017 16:13 - CONCLUSION: 1. Left sided subclavian catheter in good position. Elliott Salvador MD Abdomen/Pelvis CT 03/06/17 0000 Signed Impressions: Service Date/Time: Monday, March 06, 2017 15:29 - CONCLUSION: 1. There is extensive inflammatory change around the right ureteral pelvic junction. There is no significant hydronephrosis in the kidney. There is some inflammatory change around the right kidney as well. Examination would suggest either recent stone passage or possible UTI. If symptoms fail to improve post contrast imaging may be of benefit for further assessment. 2. Atherosclerotic plaquing the coronary arteries. 3. COPD changes in the lung bases. Elliott Salvador MD Tubes & Lines: Vas-Cath, Chan (Zach,Nayeli B. CIDER PRESS OPERATOR) Physical Exam General Appearance: Well Developed, Well Nourished, Obese (Zach,Nayeli B. CIDER PRESS OPERATOR) Throat Throat Exam: Oral Mucosa [place] & Moist (Zach,Nayeli B. CIDER PRESS OPERATOR) Pulmonary Resp Exam: Crackles, Rhonchi, Decreased Bases (Zach,Nayeli B. CIDER PRESS OPERATOR) Cardiology CV Exam: Normal Sinus Rhythm, Good Perfusion (Zach,Nayeli B. CIDER PRESS OPERATOR) Gastrointestinal/Abdomen GI Exam: Soft, Non-Tender, Bowel Sounds Present GI Remarks ascites, umbilical hernia (Zach,Nayeli B. CIDER PRESS OPERATOR) Genitourinary Remarks hematuria in chan (Zach,Nayeli B. CIDER PRESS OPERATOR) Musculoskeletal MS Exam: Joints Intact, Normal Tone (Zach,Nayeli B. CIDER PRESS OPERATOR) Integumentary Skin Exam: Warm, Dry (Zach,Nayeli B. CIDER PRESS OPERATOR) Extremeties Extremities Exam: Pedal Pulses Palpable, Trace Edema (Zach,Nayeli B. CIDER PRESS OPERATOR) Neurologic Neuro Exam: Alert, Awake, Oriented, Speech Clear, Moving All Extremities ( Zach,Nayeli B. CIDER PRESS OPERATOR) Psychiatric Psych Exam: Appropriate Responses (Zach,Nayeli B. CIDER PRESS OPERATOR) VTE Prophylaxis Device: SCDs (Zach,Nayeli B. CIDER PRESS OPERATOR) Assessment/Plan Discussed Condition With: Patient Assessment Summary: URI/Acute Renal Failure, Fluid/Volume Overload, Hypertension Electrolyte Assessment: Hyperkalemia Problem List: (1) Acute renal failure Plan: In a patient with normal renal function in October originally presented with urinary obstruction, chan placed, on flomax creatinine did not improve as anticipated, he was dialyzed urgently yesterday ( 2L fluid removal) dialyzed again today with 3 liters fluid removal repeat creatinine is better, urine output is borderline acidosis corrected with dialysis off IVF monitor renal function, await renal recovery avoid nephrotoxic substances (2) Hyperkalemia Plan: Due to reduction in GFR corrected with dialysis, follow BMP (3) Metabolic acidosis Plan: likely due to renal failure, also may be due to metformin use correcting with dialysis, monitor (4) Hypoglycemia Plan: continue to monitor glucose (5) Sepsis Plan: high lactic acid, ordered Zosyn cultures have been drawn he has left lower lobe pneumonia (Nayeli Serrano) Plan patient was seen and examined. Renal function did not improve, dialysis started. Agree with above assessment and plan. (Javi Maria MD) Problem Qualifiers (1) Acute renal failure: Qualified Code: N17.9 - Acute renal failure, unspecified acute renal failure type (2) Sepsis: Qualified Code: A41.9 - Sepsis, due to unspecified organism Nayeli Serrano Mar 08, 2017 14:55 Javi Maria MD Mar 09, 2017 20:18
--- NOTE | 2017-03-08 17:39 | HHI.CCPN ---
Subjective Remarks/Hospital Course The patient is a 72 year-old male with past medical history of hypertension, diabetes mellitus, hyperlipidemia, depression, newly diagnosed multiple sclerosis who presented to [facility] emergency department after his home health nurse was unable to get him out of bed and she called 911, the patient was severely hypoglycemic in arrival with blood sugar in the 20's. He was hospitalized at the [facility] [address] in [place] where he was admitted after a fall and newly diagnosed with multiple sclerosis. He was discharged to an outpatient rehabilitation facility and then discharged home from rehab yesterday afternoon. Per emergency department records the patient has been drinking a little water. On arrival to the emergency room he had a blood pressure of 152/71. His laboratory data revealed multiple abnormalities where he was hyperkalemic with potassium level of 7.4 and in acute renal failure with a blood urea nitrogen of 111, creatinine 10.21 and hypoglycemia with blood sugar of 51. He was also found to have elevated lactic acid level at 5.8 and leukocytosis with a white blood count of 16.1. Chest x-ray in the emergency room showed bibasilar streakiness, consistent with a probable atelectasis and elevation of the right Hemidiaphragm. A CT scan of the brain was obtained as well which showed no intracranial abnormalities. Due to his lactic acidosis. A CT of the abdomen and pelvis was obtained which showed extensive inflammatory change around the right ureteral pelvic junction with no evidence of hydronephrosis and inflammatory changes around the right kidney as well. Chronic obstructive pulmonary disease changes noted along the bases. For his hyperkalemia, in the emergency room the patient was given two amps of bicarb. Two grams of calcium gluconate and currently receiving a second liter normal saline. The patient was seen by nephrology service and he is about to receive 10 units of IV insulin D50 and Kayexalate. Also bicarbonate drip has been ordered by the nephrology service. The patient is awake, alert, lying comfortably in bed, in no acute distress. He is on two liters of oxygen with saturation, 97%. Current blood pressure 157/70, with pulse of 67. He denies any chest pain, shortness of breath or abdominal pain. In addition the patient denies any cough or constitutional symptoms. A Mendoza was placed in the emergency room and he had one liter out initially within 30 minutes he has had another 1.5 to 2 liters returned. There was also some hematuria noted in the Mendoza. Subjective : 03/07: Potassium level remains elevated,non sodium bicarbonate drip. Plan for a vascular catheter placement with initiation of hemodialysis today. Discussed with via telephone. No change in mental status. Patient continues on facemask with frequent NT suctioning. 03/08: Hemodialysis initiated yesterday, sodium bicarbonate infusion discontinued. Hemodialysis 3 L off today. O2 saturation wean to 4 L nasal cannula, with O2 saturation 99%. Bedside swallow successful, will advance diet to clear liquids. Objective Vital Signs Date Time Temp Pulse Resp B/P Pulse Ox O2 Delivery O2 Flow Rate FiO2 03/08/17 16:00 99 03/08/17 16:00 98.3 24 100/63 99 03/08/17 11:30 Nasal Cannula 4.00 Intake and Output 03/07/17 03/07/17 03/07/17 07:59 15:59 23:59 Intake Total 897 ml 300 ml 84 ml Output Total 500 ml 2275 ml 75 ml Balance 397 ml -1975 ml 9 ml Result Diagram: 03/08/17 0345 03/08/17 0345 Other Results Microbiology Date/Time Procedure Status Source Growth 03/06/17 14:00 Urine Culture - Final Complete Urine Catheterized Urine NO GROWTH IN 48 HOURS. Imaging Last Impressions Chest X-Ray 03/07/17 0000 Signed Impressions: Service Date/Time: Tuesday, March 07, 2017 13:22 - CONCLUSION: 1. Interval placement of right internal jugular central venous line with no pneumothorax. 2. Patchy opacity in both lungs and probable small left effusion. Tushar Natarajan MD Head CT 03/06/17 1352 Signed Impressions: Service Date/Time: Monday, March 06, 2017 15:25 - CONCLUSION: 1. No acute intracranial abnormality. 2. Atrophy and chronic small vessel ischemic change. Jeremy Rutherford Jr., MD Abdomen/Pelvis CT 03/06/17 0000 Signed Impressions: Service Date/Time: Monday, March 06, 2017 15:29 - CONCLUSION: 1. There is extensive inflammatory change around the right ureteral pelvic junction. There is no significant hydronephrosis in the kidney. There is some inflammatory change around the right kidney as well. Examination would suggest either recent stone passage or possible UTI. If symptoms fail to improve post contrast imaging may be of benefit for further assessment. 2. Atherosclerotic plaquing the coronary arteries. 3. COPD changes in the lung bases. Elliott Salvador MD Objective Remarks BP 108/55 Pulse 97 O2 sat 99% on 4 LPM/N/C GENERAL: Well-developed well-nourished confused male SKIN: Warm and dry. HEAD: Atraumatic. Normocephalic. EYES: Pupils equal and round. No scleral icterus. No injection or drainage. ENT: No nasal bleeding or discharge. Mucous membranes pink and moist. NECK: Trachea midline. No JVD. CARDIOVASCULAR: Normal rate, regular rhythm. RESPIRATORY: No accessory muscle use. Clear to auscultation. Breath sounds equal bilaterally. GASTROINTESTINAL: Abdomen soft, obese ,non-tender, nondistended. No guarding. MUSCULOSKELETAL: Extremities without clubbing, cyanosis, or trace peripheral edema bilateral extremities. No obvious deformities. NEUROLOGICAL: Awake and alert. RASS 0. No gross focal/sensory deficits. Occasionally follows commands in all 4 extremities. Line: Central Venous Catheter Side: Right Location: Internal, Jugular A/P Assessment and Plan Assessment 1. Respiratory insufficiency. 2. Acute renal failure. 3. Hyperkalemia. 4. Hyponatremia-resolved 5. Anion gap metabolic acidosis. 6. Lactic acidemia. 7. Hypoglycemia. 8. Leukocytosis. 9. Anemia. 10. Urinary tract infection. 11. Hypotension-resolved 12. History of diabetes mellitus. 13. Hyperlipidemia. 14. Hematuria. 15. Chronic obstructive pulmonary disease 16. Recent diagnosis of multiple sclerosis RECOMMENDATIONS: 1. Monitor neurostatus closely and avoid any sedatives. A CT scan of the brain in the emergency room negative for acute intracranial process. 2. Continue oxygen to maintain saturations above 92%, currently on 4 L nasal cannula 3. Bronchodilators in the form of duoneb q 4 hours, and q two as needed for shortness of breath. 4. Monitor heart rate and blood pressure closely and maintain MAP greater then 65 mmHg. 5. 03/07 Discontinue sodium bicarbonate infusion 6. Serial lactic acid monitoring. 7. Nephrology following, Dr. Maria -vascular catheter placement, 03/07 initiation of hemodialysis sodium bicarbonate infusion discontinued 8. Consult urology service for hematuria. 9. 03/08 -Initiate clear liquid diet .perform a formal bedside swallow in a.m. Protonix 40 mg daily for gastrointestinal prophylaxis. 11. Continue with broad spectrum antibiotics. We will continue with vancomycin and Zosyn and monitor for signs of infections which include fever and white blood count. Follow up on blood and urine cultures which were performed in the emergency room. NGTD 12. Sliding scale insulin with glucose monitoring per ICU protocol 13. Monitor the complete blood count and Coags. 14. Gastrointestinal prophylaxis with Protonix 40 mg daily. Deep venous thrombosis prophylaxis with sequential compression devices. Hold off on chemical anticoagulation prophylaxis for 2/2 hematuria. 15. Left subclavian central line was placed by emergency department physician. Dispo[facility] Discussed with NICKING MACHINE OPERATOR at bedside. Physician Kelly Acevedo MD Mar 08, 2017 17:39
[2017-03-09] VITALS (18 sets, daily range): BP systolic 111–156; BP diastolic 63–74; PULSE 80–97; RESP 22–30; TEMP 98.3–98.7; O2SAT 91–100
[2017-03-09] MEDS: INSULIN NovoLIN REGULAR SUPPLEMENTAL SCALE SQ SCH ×3 (02:00→06:00)
[2017-03-09] MEDS: PIPERACIL-TAZO 2.25 GM PREMIX 50 ML IV SCH ×3 (02:06→18:35)
[2017-03-09] MEDS: RESP: ALBUTEROL 2.5 MG/IPRATROPIUM 0.5 MG NEB (SCH) INH ×7 (03:16→23:31)
[2017-03-09 03:59] LABS: HEMATOCRIT 24.9 % (39.0-51.0); MEAN CELL VOLUME 90.1 FL (80.0-100.0); MEAN CORPUSCULAR HEMOGLOBIN 30.5 PG (27.0-34.0); MEAN CORPUSCULAR HGB CONC 33.9 % (32.0-36.0); PLATELET COUNT 262 TH/MM3 (150-450); RED BLOOD COUNT 2.76 MIL/MM3 (4.50-5.90); RED CELL DISTRIBUTION WIDTH 13.3 % (11.6-17.2); REVIEW FLAG FINAL; WHITE BLOOD COUNT 12.8 TH/MM3 (4.0-11.0)
[2017-03-09] MEDS: CHLORHEXIDINE GLUCONATE 2 % 1 PACK (2 CLOTHS) TOP SCH (04:00)
[2017-03-09 04:30] LABS: BICARBONATE 32.1 MEQ/L (21.0-32.0); POTASSIUM 3.5 MEQ/L (3.5-5.1)
--- NOTE | 2017-03-09 08:51 | HHI.CCPN ---
Subjective Remarks/Hospital Course The patient is a 72 year-old male with past medical history of hypertension, diabetes mellitus, hyperlipidemia, depression, newly diagnosed multiple sclerosis who presented to [facility] emergency department after his home health nurse was unable to get him out of bed and she called 911, the patient was severely hypoglycemic in arrival with blood sugar in the 20's. He was hospitalized at the [facility] in [place] where he was admitted after a fall and newly diagnosed with multiple sclerosis. He was discharged to an outpatient rehabilitation facility and then discharged home from rehab yesterday afternoon. Per emergency department records the patient has been drinking a little water. On arrival to the emergency room he had a blood pressure of 152/71. His laboratory data revealed multiple abnormalities where he was hyperkalemic with potassium level of 7.4 and in acute renal failure with a blood urea nitrogen of 111, creatinine 10.21 and hypoglycemia with blood sugar of 51. He was also found to have elevated lactic acid level at 5.8 and leukocytosis with a white blood count of 16.1. Chest x-ray in the emergency room showed bibasilar streakiness, consistent with a probable atelectasis and elevation of the right Hemidiaphragm. A CT scan of the brain was obtained as well which showed no intracranial abnormalities. Due to his lactic acidosis. A CT of the abdomen and pelvis was obtained which showed extensive inflammatory change around the right ureteral pelvic junction with no evidence of hydronephrosis and inflammatory changes around the right kidney as well. Chronic obstructive pulmonary disease changes noted along the bases. For his hyperkalemia, in the emergency room the patient was given two amps of bicarb. Two grams of calcium gluconate and currently receiving a second liter normal saline. The patient was seen by nephrology service and he is about to receive 10 units of IV insulin D50 and Kayexalate. Also bicarbonate drip has been ordered by the nephrology service. The patient is awake, alert, lying comfortably in bed, in no acute distress. He is on two liters of oxygen with saturation, 97%. Current blood pressure 157/70, with pulse of 67. He denies any chest pain, shortness of breath or abdominal pain. In addition the patient denies any cough or constitutional symptoms. A Mendoza was placed in the emergency room and he had one liter out initially within 30 minutes he has had another 1.5 to 2 liters returned. There was also some hematuria noted in the Mendoza. Subjective : 03/07: Potassium level remains elevated,non sodium bicarbonate drip. Plan for a vascular catheter placement with initiation of hemodialysis today. Discussed with via telephone. No change in mental status. Patient continues on facemask with frequent NT suctioning. 03/08: Hemodialysis initiated yesterday, sodium bicarbonate infusion discontinued. Hemodialysis 3 L off today. O2 saturation wean to 4 L nasal cannula, with O2 saturation 99%. Bedside swallow successful, will advance diet to clear liquids. 03/09: No acute events last evening. Plan for formal swallow this a.m. to advance diet. Pulmonary status much improved. Discussed with urology, noted hematuria resolving. Objective Vital Signs Date Time Temp Pulse Resp B/P Pulse Ox O2 Delivery O2 Flow Rate FiO2 03/09/17 07:37 98 Simple Mask 8.00 03/09/17 06:00 85 03/09/17 04:00 98.6 24 111/74 Intake and Output 03/08/17 03/08/17 03/08/17 07:59 15:59 23:59 Intake Total 98 ml 49 ml 233 ml Output Total 140 ml 3200 ml 250 ml Balance -42 ml -3151 ml -17 ml Result Diagram: 03/09/17 0340 03/09/17 0340 Other Results Microbiology Date/Time Procedure Status Source Growth 03/06/17 14:00 Urine Culture - Final Complete Urine Catheterized Urine NO GROWTH IN 48 HOURS. Imaging Last Impressions Chest X-Ray 03/07/17 0000 Signed Impressions: Service Date/Time: Tuesday, March 07, 2017 13:22 - CONCLUSION: 1. Interval placement of right internal jugular central venous line with no pneumothorax. 2. Patchy opacity in both lungs and probable small left effusion. Tushar Natarajan MD Head CT 03/06/17 1352 Signed Impressions: Service Date/Time: Monday, March 06, 2017 15:25 - CONCLUSION: 1. No acute intracranial abnormality. 2. Atrophy and chronic small vessel ischemic change. Jeremy Rutherford Jr., MD Abdomen/Pelvis CT 03/06/17 0000 Signed Impressions: Service Date/Time: Monday, March 06, 2017 15:29 - CONCLUSION: 1. There is extensive inflammatory change around the right ureteral pelvic junction. There is no significant hydronephrosis in the kidney. There is some inflammatory change around the right kidney as well. Examination would suggest either recent stone passage or possible UTI. If symptoms fail to improve post contrast imaging may be of benefit for further assessment. 2. Atherosclerotic plaquing the coronary arteries. 3. COPD changes in the lung bases. Elliott Salvador MD Objective Remarks BP 145/69 Pulse 97 O2 sat 97% on 4 LPM/N/C GENERAL: Well-developed well-nourished confused male, but responsive SKIN: Warm and dry. HEAD: Atraumatic. Normocephalic. EYES: Pupils equal and round. No scleral icterus. No injection or drainage. ENT: No nasal bleeding or discharge. Mucous membranes pink and moist. NECK: Trachea midline. No JVD. CARDIOVASCULAR: Normal rate, regular rhythm. RESPIRATORY: No accessory muscle use. Clear to auscultation. Breath sounds equal bilaterally. GASTROINTESTINAL: Abdomen soft, obese ,non-tender, nondistended. No guarding. MUSCULOSKELETAL: Extremities without clubbing, cyanosis, or trace peripheral edema bilateral extremities. No obvious deformities. NEUROLOGICAL: Awake and alert. RASS 0. No gross focal/sensory deficits. Occasionally follows commands in all 4 extremities. Line: Central Venous Catheter Side: Right Location: Internal, Jugular A/P Assessment and Plan Assessment 1. Respiratory insufficiency. 2. Acute renal failure. 3. Hyperkalemia. 4. Hyponatremia-resolved 5. Anion gap metabolic acidosis. 6. Lactic acidemia. 7. Hypoglycemia. 8. Leukocytosis. 9. Anemia. 10. Urinary tract infection. 11. Hypotension-resolved 12. History of diabetes mellitus. 13. Hyperlipidemia. 14. Hematuria. 15. Chronic obstructive pulmonary disease 16. Recent diagnosis of multiple sclerosis RECOMMENDATIONS: 1. Monitor neurostatus closely and avoid any sedatives. A CT scan of the brain in the emergency room negative for acute intracranial process. 2. Continue oxygen to maintain saturations above 92%, currently on 4 L nasal cannula, 3. Bronchodilators in the form of duoneb q 4 hours, and q two as needed for shortness of breath. 4. Monitor heart rate and blood pressure closely and maintain MAP greater then 65 mmHg. 5. 03/07 Discontinue sodium bicarbonate infusion 6. Serial lactic acid monitoring. 7. Nephrology following, Dr. Maria -vascular catheter placement, 03/07 initiation of hemodialysis sodium bicarbonate infusion discontinued 8. Consult urology service for hematuria. 9. 03/09 F/U formal bedside swallow in a.m. Protonix 40 mg daily for gastrointestinal prophylaxis. 11. Continue with broad spectrum antibiotics. We will continue with vancomycin and Zosyn and monitor for signs of infections which include fever and white blood count. Follow up on blood and urine cultures which were performed in the emergency room. NGTD 12. Sliding scale insulin with glucose monitoring per ICU protocol 13. Monitor the complete blood count and Coags. 14. Gastrointestinal prophylaxis with Protonix 40 mg daily. Deep venous thrombosis prophylaxis with sequential compression devices. Hold off on chemical anticoagulation prophylaxis for 2/2 hematuria. 15.Discontinue Left subclavian central line 16. PT evaluate and treat Dispo: Level 2 Plan transfer to [facility] in a.m.. Discussed with HEEL WASHER STRINGING MACHINE OPERATOR at bedside. Physician Kelly Acevedo MD Mar 09, 2017 08:51
[2017-03-09] MEDS: PANTOPRAZOLE SODIUM 40 MG VIAL IV SCH (10:07)
[2017-03-09] MEDS: DOCUSATE SODIUM 50 MG/SENNA 8.6 MG TAB PO SCH ×2 (10:08→20:19)
[2017-03-09] MEDS: TAMSULOSIN HCL 0.4 MG CAP PO SCH (10:08)
[2017-03-09] MEDS ORDERED: GLUCAGON 1 MG/ML VIAL OTHER PRN (10:30)
[2017-03-09] MEDS ORDERED: DEXTROSE 50% IN WATER 50 ML VIAL(D50) IV PUSH PRN (10:30)
[2017-03-09] MEDS ORDERED: PLEASE DISCONTINUE PREVIOUS SUPPLEMENTAL SCALE INSULIN ORDERS ONE (10:30)
--- NOTE | 2017-03-09 10:50 | HHI.NPPN ---
Subjective General Problems: Edema Renal Problems: Uremia Renal Failure: Acute Interval History Less confused today. His urine output is improving this morning. Hematuria resolving. Vitals are stable. (Nayeli Serrano) Review of Systems General General Remarks no complaints (Nayeli Serrano) Objective Data Data 03/08/17 03/09/17 18:59 06:59 Intake Total 49 ml 289 ml Output Total 3200 ml 500 ml Balance -3151 ml -211 ml Intake Oral 100 ml IV Total 49 ml 189 ml Output Urine Total 200 ml 500 ml Hemodialysis 3000 ml # Bowel Movements 0 Vital Signs Date Time Temp Pulse Resp B/P Pulse Ox O2 Delivery O2 Flow Rate FiO2 03/09/17 07:37 98 Simple Mask 8.00 03/09/17 06:00 85 03/09/17 04:00 98.6 97 24 111/74 97 03/09/17 04:00 97 03/09/17 03:19 100 Simple Mask 6.00 03/09/17 02:00 91 03/09/17 01:19 95 Simple Mask 6.00 03/09/17 00:01 99 Nasal Cannula 4.00 03/09/17 00:00 98.3 92 25 129/63 94 03/09/17 00:00 92 03/08/17 22:00 91 03/08/17 20:00 98 Nasal Cannula 5.00 03/08/17 20:00 97.9 93 24 121/57 97 03/08/17 20:00 93 03/08/17 19:00 95 Nasal Cannula 4.00 03/08/17 18:00 97 03/08/17 16:00 99 03/08/17 16:00 98.3 99 24 100/63 99 03/08/17 14:00 96 03/08/17 12:00 98.4 99 27 109/70 99 03/08/17 12:00 99 03/08/17 11:30 96 Nasal Cannula 4.00 (Nayeli Serrano) -: 03/09/17 0340 03/09/17 0340 Imaging Last 72 hours Impressions Chest X-Ray 03/08/17 0600 Signed Impressions: Service Date/Time: February 04:22 - CONCLUSION: Stable no consolidative infiltrates in the right lung and improving infiltrates at the left base. Jeremy Dee MD Chest X-Ray 03/08/17 0000 Signed Impressions: Service Date/Time: February 09:23 - CONCLUSION: 1. Support equipment in good position. 2. 3. Continued effusions and diffuse interstitial prominence suggesting congestive failure. Stable compared to prior dated at 4: 4. 22 AM.. Appearance of the chest has worsened when compared to previous exam dated 03/06/17. Elliott Salvador MD Chest X-Ray 03/07/17 0000 Signed Impressions: Service Date/Time: Tuesday, March 07, 2017 13:22 - CONCLUSION: 1. Interval placement of right internal jugular central venous line with no pneumothorax. 2. Patchy opacity in both lungs and probable small left effusion. Tushar Natarajan MD Head CT 03/06/17 1352 Signed Impressions: Service Date/Time: Monday, March 06, 2017 15:25 - CONCLUSION: 1. No acute intracranial abnormality. 2. Atrophy and chronic small vessel ischemic change. Jeremy Rutherford Jr., MD Chest X-Ray 03/06/17 1352 Signed Impressions: Service Date/Time: Monday, March 06, 2017 14:34 - CONCLUSION: 1. Bibasilar streakiness consistent with probable atelectasis. 2. Elevation of the right hemidiaphragm. 3. Degenerative changes and mild scoliosis of the thoracic spine. Krishan Mitchell MD Tubes & Lines: Vas-Cath, Chan Tubes & Lines Comment TLC left SC (Nayeli Serrano. MANAGER RELIABILITY) Physical Exam General Appearance: Well Developed, Well Nourished, Comfortable, Obese (Nayeli Serrano B. MANAGER RELIABILITY) Throat Throat Exam: Oral Mucosa Dupo & Moist (Nayeli Serrano B. MANAGER RELIABILITY) Pulmonary Resp Exam: Crackles, Rhonchi, Decreased Bases (Nayeli Serrano B. MANAGER RELIABILITY) Cardiology CV Exam: Normal Sinus Rhythm, Good Perfusion (Nayeli Serrano B. MANAGER RELIABILITY) Gastrointestinal/Abdomen GI Exam: Soft, Non-Tender, Bowel Sounds Present GI Remarks ascites, umbilical hernia (Nayeli Serrano B. MANAGER RELIABILITY) Genitourinary Remarks hematuria in chan (ZachNayeli hurley) Musculoskeletal MS Exam: Joints Intact, Normal Tone (Nayeli Serrano) Integumentary Skin Exam: Warm, Dry (Nayeli Serrano) Extremeties Extremities Exam: Pedal Pulses Palpable, Trace Edema (Nayeli Serrano) Neurologic Neuro Exam: Alert, Awake, Oriented, Speech Clear, Moving All Extremities ( Nayeli Serrano) Psychiatric Psych Exam: Appropriate Responses (Nayeli Serrano) VTE Prophylaxis Device: SCDs (Nayeli Serrano) Assessment/Plan Discussed Condition With: Patient Assessment Summary: URI/Acute Renal Failure, Fluid/Volume Overload, Hypertension Electrolyte Assessment: Hyperkalemia Problem List: (1) Acute renal failure Plan: In a patient with normal renal function in October originally presented with urinary obstruction, chan placed, stated on flomax he had urgent dialysis on Sun and creatinine is better today urine output improved, hematuria resolved off IVF repeat labs in AM, await renal recovery D/W pt avoid nephrotoxic substances (2) Hyperkalemia Plan: Due to reduction in GFR corrected with dialysis, follow BMP (3) Metabolic acidosis Plan: likely due to renal failure, also may be due to metformin use correcting with dialysis, monitor (4) Hypoglycemia Plan: continue to monitor glucose (5) Sepsis Plan: high lactic acid, ordered Zosyn cultures have been drawn, negative to date he has left lower lobe pneumonia due for swallow evaluation (Nayeli Serrano) Problem List: (1) Acute renal failure Plan: In a patient with normal renal function in October originally presented with urinary obstruction, chan placed, stated on flomax he had urgent dialysis on Sun and creatinine is better today urine output improved, hematuria resolved off IVF repeat labs in AM, await renal recovery D/W pt avoid nephrotoxic substances (2) Hyperkalemia Plan: Due to reduction in GFR corrected with dialysis, follow BMP (3) Metabolic acidosis Plan: likely due to renal failure, also may be due to metformin use correcting with dialysis, monitor (4) Hypoglycemia Plan: continue to monitor glucose (5) Sepsis Plan: high lactic acid, ordered Zosyn cultures have been drawn, negative to date he has left lower lobe pneumonia due for swallow evaluation Plan patient was seen and examined. Agree with above assessment and plan. He remains confused and disoriented. Prognosis is guarded. (Javi Maria MD) Problem Qualifiers (1) Acute renal failure: Qualified Code: N17.9 - Acute renal failure, unspecified acute renal failure type (2) Sepsis: Qualified Code: A41.9 - Sepsis, due to unspecified organism Nayeli Serrano [facility] Mar 09, 2017 10:50 Javi Maria MD Mar 09, 2017 20:40
[2017-03-09] MEDS: LOW DOSE INSULIN NOVOLIN REGULAR SUPPLEMENTAL SCALE SQ SCH ×3 (13:00→20:19)
[2017-03-09] MEDS ORDERED: VANCOMYCIN 1,000 MG/NS 250 ML IV ONE ×2 (16:00)
--- NOTE | 2017-03-09 20:37 | MB ---
cc: Attila LECHUGA M.D. DATE OF CONSULTATION 03/08/17 HISTORY OF PRESENT ILLNESS Mr. Montiel is a 72-year old white male with a presentation in acute renal failure possibly post obstructive. He has now had a catheter placed and he is on dialysis. He presented in acute distress on March 06. He had been confused and very weak, brought in by his family. He had been discharged the day previously from a rehab center where he had been sent after being treated at the [facility] for falling episodes and was diagnosed with multiple sclerosis. He has a prior history of diabetes and hypertension. He was also hospitalized here as a psychiatric emergency back in October, apparently became very agitated and called -- threatening to throw his off a balcony. I do not have any history between then and now other than what I have in the record. The patient has been somewhat confused since admission and was not able to provide me any history this evening. On presentation, he had marked abnormalities in his labs with a white count of 16,000, a BUN of 100, creatinine of nine. Lactic acid was six and bicarb were low as well. Cultures of urine and blood were all negative, although he was treated with antibiotics for possible sepsis. Until this recent October admission, it looks as though the patient had been in reasonably good health other than the hypertension and diabetes but no other serious problems are recorded. PAST SURGICAL HISTORY No significant prior surgical history ALLERGIES No known allergies. SOCIAL HISTORY He is , living with his . A daughter was present earlier in the hospitalization as well according to the notes. He has smoked up to the time of admission, probably has a 50-60 pack-year history but had not been treated for COPD. MEDICATIONS Reviewed in the EMR. IMAGING STUDIES Chest x-rays have revealed some minimal basilar densities and really have not changed much during the hospital stay. He has required up to eight liters of oxygen by simple mask, currently on four liters with sats in the mid to upper 90s. PHYSICAL EXAMINATION GENERAL: Elderly white male, somewhat confused. No obvious distress. VITAL SIGNS: Afebrile, blood pressure 140/60, pulse 80, respirations 18, nonlabored. HEENT: Sclerae pale but anicteric. NECK: Neck veins are not distended. CHEST: Some minimal scattered congestion. HEART: Regular rhythm. No harsh murmur. No audible S3. ABDOMEN: Soft, a little tympanitic. 1+ edema at the ankles but no cyanosis. ASSESSMENT AND PLAN Mr. Montiel presented very acutely ill with renal failure, precise etiology is unclear. He is currently on dialysis. May have been sepsis, although no specific organisms have been identified. Respiratory status has been reasonably stable on O2 and nebulized aerosol treatments. Probably has underlying COPD based on the history. I have made no change in the specific pulmonary therapy at present. Further diagnostic and/or therapeutic range will depend on his ongoing clinical course. R. MD STACEY Davies/ /6:01 PM /8:23 PM
[2017-03-10] VITALS (21 sets, daily range): BP systolic 140–179; BP diastolic 65–79; PULSE 76–101; RESP 17–31; TEMP 98.5–99.8; O2SAT 91–100
[2017-03-10] MEDS: PIPERACIL-TAZO 2.25 GM PREMIX 50 ML IV SCH ×3 (02:19→17:56)
[2017-03-10] MEDS: CHLORHEXIDINE GLUCONATE 2 % 1 PACK (2 CLOTHS) TOP SCH (04:00)
[2017-03-10] MEDS: RESP: ALBUTEROL 2.5 MG/IPRATROPIUM 0.5 MG NEB (SCH) INH ×5 (04:01→20:13)
[2017-03-10 05:59] LABS: MEAN CELL VOLUME 91.5 FL (80.0-100.0); MEAN CORPUSCULAR HEMOGLOBIN 30.4 PG (27.0-34.0); MEAN CORPUSCULAR HGB CONC 33.2 % (32.0-36.0); PLATELET COUNT 263 TH/MM3 (150-450); RED BLOOD COUNT 2.74 MIL/MM3 (4.50-5.90); RED CELL DISTRIBUTION WIDTH 13.2 % (11.6-17.2); REVIEW FLAG FINAL; WHITE BLOOD COUNT 12.9 TH/MM3 (4.0-11.0)
[2017-03-10 06:08] LABS: BICARBONATE 27.7 MEQ/L (21.0-32.0); POTASSIUM 3.1 MEQ/L (3.5-5.1)
[2017-03-10] MEDS: LOW DOSE INSULIN NOVOLIN REGULAR SUPPLEMENTAL SCALE SQ SCH ×4 (06:43→20:00)
[2017-03-10] MEDS: TAMSULOSIN HCL 0.4 MG CAP PO SCH ×2 (09:00→09:14)
[2017-03-10] MEDS: DOCUSATE SODIUM 50 MG/SENNA 8.6 MG TAB PO SCH ×3 (09:00→20:01)
[2017-03-10] MEDS: PANTOPRAZOLE SODIUM 40 MG VIAL IV SCH (09:14)
--- NOTE | 2017-03-10 11:12 | HHI.NPPN ---
Subjective General Problems: Edema Renal Problems: Uremia Renal Failure: Acute Additional Remarks Patient awake, confused/ moaning. No signs of distress Review of Systems General General Remarks no complaints Objective Data Data 03/09/17 03/10/17 19:00 07:00 Intake Total 355 ml 255 ml Output Total 400 ml 900 ml Balance -45 ml -645 ml Intake Oral 300 ml IV Total 55 ml 255 ml Output Urine Total 400 ml 900 ml # Bowel Movements 1 2 Vital Signs Date Time Temp Pulse Resp B/P Pulse Ox O2 Delivery O2 Flow Rate FiO2 03/10/17 10:00 93 03/10/17 09:00 96 22 140/65 93 03/10/17 08:17 95 Nasal Cannula 5.00 03/10/17 08:00 99.0 89 22 147/66 93 03/10/17 08:00 89 03/10/17 07:00 93 30 179/77 93 03/10/17 07:00 95 Nasal Cannula 4.00 03/10/17 06:00 95 03/10/17 04:00 98.7 93 26 168/65 98 03/10/17 04:00 93 03/10/17 02:00 90 03/10/17 00:00 98.5 80 24 158/72 98 03/10/17 00:00 80 03/09/17 23:34 98 Simple Mask 8.00 03/09/17 22:00 89 03/09/17 20:00 98.3 90 30 156/70 100 03/09/17 20:00 90 03/09/17 19:57 91 Nasal Cannula 4.00 03/09/17 19:00 95 Nasal Cannula 4.00 03/09/17 18:00 90 03/09/17 16:00 98.7 80 22 141/65 96 03/09/17 16:00 81 03/09/17 14:00 84 03/09/17 12:00 91 03/09/17 12:00 98.7 91 22 151/65 94 -: 03/10/17 0506 03/10/17 0506 Tubes & Lines: Vas-Cath, Chan Tubes & Lines Comment TLC left SC Physical Exam General Appearance: Well Developed, Well Nourished, Comfortable, Obese Throat Throat Exam: Oral Mucosa Mcloud & Moist Pulmonary Resp Exam: Rhonchi, Decreased Bases Cardiology CV Exam: Normal Sinus Rhythm, Good Perfusion Gastrointestinal/Abdomen GI Exam: Soft, Non-Tender, Bowel Sounds Present Musculoskeletal MS Exam: Joints Intact, Normal Tone Integumentary Skin Exam: Warm, Dry Extremeties Extremities Exam: Pedal Pulses Palpable, Trace Edema Neurologic Neuro Exam: Moving All Extremities, Stuporous Psychiatric Psych Exam: Appropriate Responses VTE Prophylaxis Device: SCDs Assessment/Plan Discussed Condition With: Patient Assessment Summary: URI/Acute Renal Failure, Fluid/Volume Overload, Hypertension Electrolyte Assessment: Hyperkalemia Problem List: (1) Acute renal failure Plan: In a patient with normal renal function in October originally presented with urinary obstruction, chan placed, stated on flomax he had urgent dialysis on Sun and Creatinine, UOP improving, hematuria resolved Will hold HD for now and and continue to monitor renal recovery/ post- obstructive diuresis. Not taking much PO intake in. Will start IVFs with NS + 40meq KCL at 50cc/hour. (2) Hyperkalemia Plan: Improved, hypokalemia now with increased UOP and poor PO intake. Will give KCl with IVFs. (3) Metabolic acidosis Plan: likely due to renal failure, also may be due to metformin use correcting with dialysis, monitor (4) Hypoglycemia Plan: continue to monitor glucose (5) Sepsis Plan: high lactic acid, ordered Zosyn cultures have been drawn, negative to date he has left lower lobe pneumonia Problem Qualifiers (1) Acute renal failure: Qualified Code: N17.9 - Acute renal failure, unspecified acute renal failure type (2) Sepsis: Qualified Code: A41.9 - Sepsis, due to unspecified organism Elliott Barrientos MD Mar 10, 2017 11:12
[2017-03-10] MEDS: NS + KCL 20 MEQ INJ 1,000 ML IV SCH (12:56)
[2017-03-10] MEDS ORDERED: POTASSIUM CHLORIDE INJ 20 MEQ in SODIUM CHLOR 0.9% 1000 ML INJ 1,000 ML IV SCH (13:00)
--- NOTE | 2017-03-10 15:08 | HHI.PR ---
Objective Vitals Vital Signs Date Time Temp Pulse Resp B/P Pulse Ox O2 Delivery O2 Flow Rate FiO2 03/10/17 14:00 86 03/10/17 12:00 95 03/10/17 12:00 99.3 95 27 152/69 95 03/10/17 11:00 101 17 149/78 96 03/10/17 10:00 93 22 143/66 93 03/10/17 10:00 93 03/10/17 09:00 96 22 140/65 93 03/10/17 08:17 95 Nasal Cannula 5.00 03/10/17 08:00 99.0 89 22 147/66 93 03/10/17 08:00 89 03/10/17 07:00 93 30 179/77 93 03/10/17 07:00 95 Nasal Cannula 4.00 03/10/17 06:00 95 03/10/17 04:00 98.7 93 26 168/65 98 03/10/17 04:00 93 03/10/17 02:00 90 03/10/17 00:00 98.5 80 24 158/72 98 03/10/17 00:00 80 03/09/17 23:34 98 Simple Mask 8.00 03/09/17 22:00 89 03/09/17 20:00 98.3 90 30 156/70 100 03/09/17 20:00 90 03/09/17 19:57 91 Nasal Cannula 4.00 03/09/17 19:00 95 Nasal Cannula 4.00 03/09/17 18:00 90 03/09/17 16:00 98.7 80 22 141/65 96 03/09/17 16:00 81 I/O 03/09/17 03/09/17 03/09/17 03/10/17 03/10/17 03/10/17 07:00 15:00 23:00 07:00 15:00 23:00 Intake Total 56 ml 55 ml 468 ml 87 ml 142 ml Output Total 250 ml 400 ml 425 ml 475 ml 550 ml Balance -194 ml -345 ml 43 ml -388 ml -408 ml Intake Oral 300 ml IV Total 56 ml 55 ml 168 ml 87 ml 142 ml Output Urine Total 250 ml 400 ml 425 ml 475 ml 550 ml # Bowel Movements 0 1 1 1 1 Result Diagram: 03/10/17 0506 03/10/17 0506 Line: Central Venous Catheter Side: Right Location: Internal, Jugular John Medina MD Mar 10, 2017 15:08
[2017-03-10] MEDS ORDERED: methylPREDNISolone SOD SUCC 125 MG/2 ML VIAL IV PUSH ONE (17:00)
--- NOTE | 2017-03-10 17:11 | HHI.PR ---
Subjective Remarks As per RN patient was on nasal canula and has had sudden oxygen desaturation patient denies cp, cough, fevers or chills denies diarrhea bp seems to be elevated Objective Vitals Vital Signs Date Time Temp Pulse Resp B/P Pulse Ox O2 Delivery O2 Flow Rate FiO2 03/10/17 16:00 99.4 96 31 93 03/10/17 16:00 96 03/10/17 15:00 91 25 163/75 92 03/10/17 14:00 86 23 153/70 93 03/10/17 14:00 86 03/10/17 13:00 90 27 162/72 91 03/10/17 12:00 95 03/10/17 12:00 99.3 95 27 152/69 95 03/10/17 11:00 101 17 149/78 96 03/10/17 10:00 93 22 143/66 93 03/10/17 10:00 93 03/10/17 09:00 96 22 140/65 93 03/10/17 08:17 95 Nasal Cannula 5.00 03/10/17 08:00 99.0 89 22 147/66 93 03/10/17 08:00 89 03/10/17 07:00 93 30 179/77 93 03/10/17 07:00 95 Nasal Cannula 4.00 03/10/17 06:00 95 03/10/17 04:00 98.7 93 26 168/65 98 03/10/17 04:00 93 03/10/17 02:00 90 03/10/17 00:00 98.5 80 24 158/72 98 03/10/17 00:00 80 03/09/17 23:34 98 Simple Mask 8.00 03/09/17 22:00 89 03/09/17 20:00 98.3 90 30 156/70 100 03/09/17 20:00 90 03/09/17 19:57 91 Nasal Cannula 4.00 03/09/17 19:00 95 Nasal Cannula 4.00 03/09/17 18:00 90 I/O 03/09/17 03/09/17 03/09/17 03/10/17 03/10/17 03/10/17 06:59 14:59 22:59 06:59 14:59 22:59 Intake Total 56 ml 55 ml 468 ml 87 ml 142 ml Output Total 250 ml 400 ml 425 ml 475 ml 550 ml Balance -194 ml -345 ml 43 ml -388 ml -408 ml Intake Oral 300 ml IV Total 56 ml 55 ml 168 ml 87 ml 142 ml Output Urine Total 250 ml 400 ml 425 ml 475 ml 550 ml # Bowel Movements 0 1 1 1 1 Result Diagram: 03/10/17 0506 03/10/17 0506 Imaging Last Impressions Chest X-Ray 03/08/17 0600 Signed Impressions: Service Date/Time: February 04:22 - CONCLUSION: Stable no consolidative infiltrates in the right lung and improving infiltrates at the left base. Jeremy Dee MD Head CT 03/06/17 1352 Signed Impressions: Service Date/Time: Monday, March 06, 2017 15:25 - CONCLUSION: 1. No acute intracranial abnormality. 2. Atrophy and chronic small vessel ischemic change. Jeremy Rutherford Jr., MD Abdomen/Pelvis CT 03/06/17 0000 Signed Impressions: Service Date/Time: Monday, March 06, 2017 15:29 - CONCLUSION: 1. There is extensive inflammatory change around the right ureteral pelvic junction. There is no significant hydronephrosis in the kidney. There is some inflammatory change around the right kidney as well. Examination would suggest either recent stone passage or possible UTI. If symptoms fail to improve post contrast imaging may be of benefit for further assessment. 2. Atherosclerotic plaquing the coronary arteries. 3. COPD changes in the lung bases. Elliott Salvador MD Objective Remarks AAOx3, NAD on ventimask no respiratory distress Diffuse BL wheezing both on inspiration and expiration abdomen, soft, NT, ND no edema in lower extremities. Medications and IVs Current Medications Medications (Trade) Dose Ordered Sig/Juan Route Start Time Stop Time Status Last Admin (NS Flush) 2 ml UNSCH PRN IV FLUSH 03/06/17 14:00 03/06/17 17:13 (Protonix Inj) 40 mg DAILY IV 03/06/17 18:00 03/10/17 09:14 Miscellaneous Information 1 Q361D XX 03/06/17 17:00 03/06/17 17:00 (Chlorhexidine 2% Cloth) 3 pack Taper DAILY@04 TOP 03/07/17 04:00 03/03/18 03:59 03/10/17 04:00 (Chlorhexidine 2% Cloth) 3 pack UNSCH PRN TOP 03/06/17 17:00 (Batsheva-Colace) 1 tab BID PO 03/06/17 21:00 03/09/17 10:08 (Milk Of Magnadrian Liq) 30 ml Q12H PRN PO 03/06/17 17:00 (Senokot) 17.2 mg Q12H PRN PO 03/06/17 17:00 (Dulcolax Supp) 10 mg DAILY PRN RECTAL 03/06/17 17:00 Lactulose 30 ml 30 ml DAILY PRN PO 03/06/17 17:00 Pharmacy Profile Note 0 ml @ 0 mls/hr UNSCH OTHER 03/06/17 17:00 (Zosyn 2.25 Gm Premix) 50 ml @ 100 mls/hr Q8H IV 03/06/17 18:00 03/10/17 09:14 Tamsulosin HCl 0.4 mg 0.4 mg DAILY PO 03/06/17 18:15 03/09/17 10:08 (NS 1000 ml Inj) 1,000 ml @ 0 mls/hr Q0M PRN IV 03/07/17 12:37 03/08/17 10:38 Heparin Sodium (Porcine) 8000 units 8,000 units UNSCH PRN IVF 03/07/17 12:45 Sodium Chloride 1,000 ml @ 200 mls/hr Q5H PRN IV 03/07/17 12:37 (NS 1000 ml Inj) 1,000 ml @ 0 mls/hr Q0M PRN IV 03/07/17 12:37 (Mannitol Inj) 12.5 gm UNSCH PRN IV 03/07/17 12:45 (Albumin 25% Inj) 25 gm UNSCH PRN IV 03/07/17 12:45 (NS Flush) 5 ml UNSCH PRN IV FLUSH 03/07/17 12:45 (Heparin Inj) UNSCH PRN .XX 03/07/17 12:45 03/08/17 10:37 (Gentamicin (Dialysis) Inj) 20 mg UNSCH PRN IV 03/07/17 12:45 03/08/17 10:37 (Zofran Inj) 4 mg UNSCH PRN IV 03/07/17 12:45 (Tylenol) 650 mg UNSCH PRN PO 03/07/17 12:45 (Benadryl) 25 mg UNSCH PRN PO 03/07/17 12:45 (Nitrostat Sl) 0.4 mg UNSCH PRN SL 03/07/17 12:45 (Catapres) 0.1 mg UNSCH PRN PO 03/07/17 12:45 (Gelfoam 12 Mm/7 Mm Top) 1 foam UNSCH PRN TOP 03/07/17 12:45 (D50w (Vial) Inj) 50 ml UNSCH PRN IV PUSH 03/09/17 10:30 Glucagon 1 mg 1 mg UNSCH PRN OTHER 03/09/17 10:30 (NS + KCl 20 Meq Inj) 1,000 ml @ 50 mls/hr Q20H IV 03/10/17 13:00 03/10/17 12:56 Urinary Catheter: No Vascular Central Line Catheter: Yes Assessment to: Continue Line: Central Venous Catheter Side: Right Location: Internal, Jugular Reason for Continuation On Hemodialysis. A/P Assessment and Plan 1. Respiratory insufficiency. 2. Acute renal failure. 3. Hyperkalemia. 4. Hyponatremia-resolved 5. Anion gap metabolic acidosis. 6. Lactic acidemia. 7. Hypoglycemia. 8. Leukocytosis. 9. Anemia. 10. Urinary tract infection. 11. Hypotension-resolved 12. History of diabetes mellitus. 13. Hyperlipidemia. 14. Hematuria. 15. Chronic obstructive pulmonary disease 16. Recent diagnosis of multiple sclerosis 17. Hypernatremia - Continue ICU care - Continue supplemental o2 to keep oxygen saturation >92% - continue IV antibiotics - Will start on IV Solumedrol 125 mg IV once and 40 mg IV Q6 hrs for suspected COPD exacerbation - check CXR STAT - Will consider IV Lasix vs Bumex if there is evidence of pulmonary congestion on x ray - Continue to monitor Lactic acid - IV NS + K started as per nephrology. - Will resume Atenolol and start on PRN Hydralazine for uncontrolled htn. - Appreciate pulmonary recommendations - Management of Postobstructive URI as per nephrology - Seen by Dr Barrientos - HD held. Continue to monitor for renal recovery. Case discussed w drug coordinator Planning Continue to monitor in the ICU. Discussed w John Tello MD Mar 10, 2017 17:11
--- NOTE | 2017-03-10 17:19 | RADRPT ---
EXAM DATE/TIME: 03/10/2017 16:56 [facility] COMPARISON: CHEST SINGLE AP, March 08, 2017, 9:23. INDICATIONS : Respiratory failure. MEDICAL HISTORY : Diabetes mellitus type I. SURGICAL HISTORY : None. ENCOUNTER: Subsequent ACUITY: 2 weeks PAIN SCORE: 0/10 LOCATION: Bilateral chest FINDINGS: Right IJ line is present with tip overlapping the expected region of the SVC. There is slight hazines s to the perivascular structures may represent mild pulmonary edema. Heart and mediastinum are unrema rkable for technique. CONCLUSION: Possible mild pulmonary edema. Kacie Givens MD on March 10, 2017 at 17:17 Board Certified Radiologist. This report was verified electronically.
[2017-03-10] MEDS: ATENOLOL 50 MG TAB PO SCH (17:27)
[2017-03-10] MEDS: methylPREDNISolone SOD SUCC 40 MG/1 ML VIAL IV PUSH SCH ×2 (17:55→23:53)
[2017-03-10] MEDS ORDERED: BUMETANIDE INJ 1 MG/4 ML VIAL ONE (18:21)
[2017-03-10] MEDS ORDERED: BUMETANIDE INJ 1 MG/4 ML VIAL IV PUSH ONE (18:30)
[2017-03-10] MEDS: PRAVASTATIN SOD 40 MG TAB PO SCH (20:01)
[2017-03-11] VITALS (21 sets, daily range): BP systolic 141–183; BP diastolic 63–80; PULSE 63–79; RESP 14–28; TEMP 98.3–98.9; O2SAT 91–100
[2017-03-11] MEDS: CHLORHEXIDINE GLUCONATE 2 % 1 PACK (2 CLOTHS) TOP SCH (02:43)
[2017-03-11] MEDS: PIPERACIL-TAZO 2.25 GM PREMIX 50 ML IV SCH ×3 (02:43→17:07)
[2017-03-11 05:23] LABS: AUTOMATED NEUTROPHIL # 9.4 TH/MM3 (1.8-7.7); EOSINOPHIL % 0.1 % (0.0-4.0); HEMATOCRIT 27.5 % (39.0-51.0); LYMPH % 3.9 % (9.0-44.0); LYMPHOCYTE # 0.4 TH/MM3 (1.0-4.8); MEAN CELL VOLUME 91.7 FL (80.0-100.0); MEAN CORPUSCULAR HEMOGLOBIN 29.7 PG (27.0-34.0); MEAN CORPUSCULAR HGB CONC 32.4 % (32.0-36.0); MONO % 2.2 % (0.0-8.0); NEUT % 93.8 % (16.0-70.0); PLATELET COUNT 286 TH/MM3 (150-450); RED BLOOD COUNT 2.99 MIL/MM3 (4.50-5.90); RED CELL DISTRIBUTION WIDTH 12.9 % (11.6-17.2)
[2017-03-11 05:36] LABS: HEMO FLAGS AUTO DIFF
[2017-03-11] MEDS: LOW DOSE INSULIN NOVOLIN REGULAR SUPPLEMENTAL SCALE SQ SCH ×4 (05:54→21:00)
[2017-03-11] MEDS: methylPREDNISolone SOD SUCC 40 MG/1 ML VIAL IV PUSH SCH ×4 (05:55→21:01)
[2017-03-11 06:00] LABS: ALT (GPT) 18 U/L (12-78); ANION GAP 13 MEQ/L (5-15); AST (GOT) 14 U/L (15-37); BICARBONATE 28.4 MEQ/L (21.0-32.0); BLOOD UREA NITROGEN 59 MG/DL (7-18); CHLORIDE 106 MEQ/L (98-107); GLOMERULAR FILTRATION RATE 14 ML/MIN (>89); MAGNESIUM 2.2 MG/DL (1.5-2.5); POTASSIUM 3.2 MEQ/L (3.5-5.1); SODIUM (NA) 147 MEQ/L (136-145)
[2017-03-11 06:03] LABS: ALKALINE PHOSPHATASE 64 U/L (45-117); TOTAL BILIRUBIN ADULT 0.6 MG/DL (0.2-1.0)
[2017-03-11 07:10] LABS: BANDS 3 % (0-6); METAMYELOCYTES 2 % (0-1); MYELOCYTES 1 % (0-0); NEUTROPHIL # MANUAL DIFF 9.5 TH/MM3 (1.8-7.7); PLATELET ESTIMATE SMEAR NORMAL (NORMAL); PLATELET MORPHOLOGY NORMAL (NORMAL); POLYS (SEG NEUTROPHILS) 89 % (16-70); SCAN/DIFF FINAL DIFF MANUAL; WBC DIFF SAMPLE 100
[2017-03-11] MEDS: RESP: ALBUTEROL 2.5 MG/IPRATROPIUM 0.5 MG NEB (SCH) INH ×4 (07:16→20:35)
[2017-03-11] MEDS: PANTOPRAZOLE SODIUM 40 MG VIAL IV SCH (08:02)
[2017-03-11] MEDS: ATENOLOL 50 MG TAB PO SCH (08:02)
[2017-03-11] MEDS: TAMSULOSIN HCL 0.4 MG CAP PO SCH (08:02)
[2017-03-11] MEDS: NS + KCL 20 MEQ INJ 1,000 ML IV SCH (09:00)
[2017-03-11] MEDS: DOCUSATE SODIUM 50 MG/SENNA 8.6 MG TAB PO SCH ×2 (09:00→21:01)
[2017-03-11] MEDS ORDERED: BUMETANIDE INJ 1 MG/4 ML VIAL ONE (12:48)
[2017-03-11] MEDS ORDERED: POTASSIUM CHLORIDE 20 MEQ CONTROLLED RELEASE TAB PO ONE ×2 (12:49→16:00)
[2017-03-11] MEDS ORDERED: POTASSIUM BICARBONATE 25 MEQ EFFERVESCENT TAB PO ONE (14:00)
[2017-03-11] MEDS ORDERED: BUMETANIDE INJ 1 MG/4 ML VIAL IV PUSH ONE (14:00)
--- NOTE | 2017-03-11 16:01 | HHI.NPPN ---
Subjective General Problems: Edema Renal Problems: Uremia Renal Failure: Acute Additional Remarks Patient awake, moaning. Some dyspnea yesterday with IVFs - IVFs held and bumex given Review of Systems General General Remarks no complaints Objective Data Data 03/11/17 03/12/17 19:00 07:00 Intake Total 70 ml Output Total 500 ml Balance -430 ml Intake Oral 20 ml IV Total 50 ml Output Urine Total 500 ml # Bowel Movements 1 Vital Signs Date Time Temp Pulse Resp B/P (MAP) Pulse Ox O2 Delivery O2 Flow Rate FiO2 03/11/17 14:00 66 03/11/17 13:00 67 19 156/68 (97) 91 03/11/17 12:00 65 19 163/72 (102) 93 03/11/17 12:00 65 03/11/17 11:00 66 23 181/78 (112) 96 03/11/17 10:00 69 03/11/17 10:00 69 27 166/73 (104) 97 03/11/17 09:00 75 23 167/70 (102) 95 03/11/17 08:00 75 03/11/17 08:00 98.3 66 18 163/74 (103) 95 03/11/17 07:17 99 Nasal Cannula 2.00 03/11/17 07:00 100 Nasal Cannula 2.00 03/11/17 07:00 72 14 166/76 (106) 100 03/11/17 06:00 63 03/11/17 04:00 71 03/11/17 04:00 98.8 71 27 183/80 (114) 96 03/11/17 02:00 71 03/11/17 01:00 98.9 79 28 183/80 (114) 97 03/11/17 00:00 74 03/11/17 00:00 98.7 77 26 181/79 (113) 98 03/10/17 22:00 76 03/10/17 20:16 96 Nasal Cannula 3.00 03/10/17 20:05 95 Nasal Cannula 4.00 03/10/17 20:00 79 03/10/17 20:00 99.8 79 29 173/79 (110) 98 03/10/17 19:00 93 Nasal Cannula 2.00 03/10/17 18:00 97 03/10/17 18:00 97 27 161/73 (102) 100 03/10/17 17:00 96 29 153/67 (95) 97 03/10/17 16:00 99.4 96 31 93 03/10/17 16:00 96 -: 03/11/17 0336 03/11/17 0336 Tubes & Lines: Vas-Cath, Chan Tubes & Lines Comment TLC left SC Physical Exam General Appearance: Well Developed, Well Nourished, Comfortable, Obese Throat Throat Exam: Oral Mucosa [place] & Moist Pulmonary Resp Exam: Rhonchi, Decreased Bases Cardiology CV Exam: Normal Sinus Rhythm, Good Perfusion Gastrointestinal/Abdomen GI Exam: Soft, Non-Tender, Bowel Sounds Present Musculoskeletal MS Exam: Joints Intact, Normal Tone Integumentary Skin Exam: Warm, Dry Extremeties Extremities Exam: Pedal Pulses Palpable, Trace Edema Neurologic Neuro Exam: Moving All Extremities, Stuporous Psychiatric Psych Exam: Appropriate Responses VTE Prophylaxis Device: SCDs Assessment/Plan Discussed Condition With: Patient Assessment Summary: URI/Acute Renal Failure, Fluid/Volume Overload, Hypertension Electrolyte Assessment: Hyperkalemia Problem List: (1) Acute renal failure ICD Codes: N17.9 - Acute kidney failure, unspecified Status: Acute Plan: In a patient with normal renal function in October originally presented with urinary obstruction, chan placed, stated on flomax he had urgent dialysis on Sun and Creatinine, UOP improving, hematuria resolved Initially given IVFs at 50cc/hour yesterday due to poor PO intake and expected post obstructive diuresis - however developed some dyspnea. Improved after bumex 1mg IV given. 1.6L UOP yesterday. Today looks somewhat better, will repeat bumex 1mg IV x1. Continue to monitor creatinine and urine output. May consider bumex PRN as needed. Continue to monitor for renal recovery. No need for dialysis at this time. (2) Hyperkalemia ICD Codes: E87.5 - Hyperkalemia Status: Acute Plan: Improved, hypokalemia now with increased UOP and poor PO intake. will given KCL today (3) Metabolic acidosis ICD Codes: E87.2 - Acidosis Status: Acute Plan: likely due to renal failure, also may be due to metformin use correcting with dialysis, monitor (4) Hypoglycemia ICD Codes: E16.2 - Hypoglycemia, unspecified Status: Acute Plan: continue to monitor glucose (5) Sepsis ICD Codes: A41.9 - Sepsis, unspecified organism Status: Acute Plan: high lactic acid, ordered Zosyn cultures have been drawn, negative to date he has left lower lobe pneumonia Problem Qualifiers (1) Acute renal failure: (2) Sepsis: Elliott Barrientos MD Mar 11, 2017 16:01
[2017-03-11] MEDS ORDERED: VANCOMYCIN 1,000 MG/NS 250 ML IV ONE ×2 (18:00)
--- NOTE | 2017-03-11 20:07 | HHI.PR ---
Subjective Remarks Deferred entry - patient seen at 12:00 am. Patient is awake, at bedside patient states feels better sob improving, denies cp afebrile Objective Vitals Vital Signs Date Time Temp Pulse Resp B/P (MAP) Pulse Ox O2 Delivery O2 Flow Rate FiO2 03/11/17 18:00 64 03/11/17 17:00 68 25 150/68 (95) 99 03/11/17 16:00 73 03/11/17 16:00 73 20 167/71 (103) 95 03/11/17 15:00 70 21 168/74 (105) 92 03/11/17 14:00 66 03/11/17 14:00 66 16 171/75 (107) 97 03/11/17 13:00 67 19 156/68 (97) 91 03/11/17 12:00 65 19 163/72 (102) 93 03/11/17 12:00 65 03/11/17 11:00 66 23 181/78 (112) 96 03/11/17 10:00 69 03/11/17 10:00 69 27 166/73 (104) 97 03/11/17 09:00 75 23 167/70 (102) 95 03/11/17 08:00 75 03/11/17 08:00 98.3 66 18 163/74 (103) 95 03/11/17 07:17 99 Nasal Cannula 2.00 03/11/17 07:00 100 Nasal Cannula 2.00 03/11/17 07:00 72 14 166/76 (106) 100 03/11/17 06:00 63 03/11/17 04:00 71 03/11/17 04:00 98.8 71 27 183/80 (114) 96 03/11/17 02:00 71 03/11/17 01:00 98.9 79 28 183/80 (114) 97 03/11/17 00:00 74 03/11/17 00:00 98.7 77 26 181/79 (113) 98 03/10/17 22:00 76 03/10/17 20:16 96 Nasal Cannula 3.00 03/10/17 20:05 95 Nasal Cannula 4.00 03/10/17 20:00 79 03/10/17 20:00 99.8 79 29 173/79 (110) 98 I/O 803/10/17 03/10/17 03/11/17 03/11/17 03/11/17 07:00 15:00 23:00 07:00 15:00 23:00 Intake Total 87 ml 142 ml 214 ml 50 ml 70 ml 50 ml Output Total 475 ml 550 ml 700 ml 350 ml 500 ml Balance -388 ml -408 ml -486 ml -300 ml -430 ml 50 ml Intake Oral 20 ml IV Total 87 ml 142 ml 214 ml 50 ml 50 ml 50 ml Output Urine Total 475 ml 550 ml 700 ml 350 ml 500 ml # Bowel Movements 1 1 1 Result Diagram: 03/11/17 0336 03/11/17 0336 Imaging Last Impressions Chest X-Ray 03/10/17 0000 Signed Impressions: Service Date/Time: Friday, March 10, 2017 16:56 - CONCLUSION: Possible mild pulmonary edema. Kacie Givens MD Head CT 03/06/17 1352 Signed Impressions: Service Date/Time: Monday, March 06, 2017 15:25 - CONCLUSION: 1. No acute intracranial abnormality. 2. Atrophy and chronic small vessel ischemic change. Jeremy Rutherford Jr., MD Abdomen/Pelvis CT 03/06/17 0000 Signed Impressions: Service Date/Time: Monday, March 06, 2017 15:29 - CONCLUSION: 1. There is extensive inflammatory change around the right ureteral pelvic junction. There is no significant hydronephrosis in the kidney. There is some inflammatory change around the right kidney as well. Examination would suggest either recent stone passage or possible UTI. If symptoms fail to improve post contrast imaging may be of benefit for further assessment. 2. Atherosclerotic plaquing the coronary arteries. 3. COPD changes in the lung bases. Elliott Salvador MD Objective Remarks AAOx3, NAD on nasal canula no respiratory distress Diffuse rhonchi BL, no wheezing or crackles auscultated abdomen, soft, NT, ND no edema in lower extremities. Medications and IVs Current Medications Medications (Trade) Dose Ordered Sig/Juan Route Start Time Stop Time Status Last Admin (NS Flush) 2 ml UNSCH PRN IV FLUSH 03/06/17 14:00 03/06/17 17:13 (Protonix Inj) 40 mg DAILY IV 03/06/17 18:00 03/11/17 08:02 (Duoneb Neb) 1 ampule Q2HR NEB PRN INH 03/06/17 17:00 Miscellaneous Information 1 Q361D XX 03/06/17 17:00 03/06/17 17:00 (Chlorhexidine 2% Cloth) 3 pack Taper DAILY@04 TOP 03/07/17 04:00 03/03/18 03:59 03/11/17 02:43 (Chlorhexidine 2% Cloth) 3 pack UNSCH PRN TOP 03/06/17 17:00 (Batsheva-Colace) 1 tab BID PO 03/06/17 21:00 03/10/17 20:01 (Milk Of Magnesia Liq) 30 ml Q12H PRN PO 03/06/17 17:00 (Senokot) 17.2 mg Q12H PRN PO 03/06/17 17:00 (Dulcolax Supp) 10 mg DAILY PRN RECTAL 03/06/17 17:00 (Lactulose Liq) 30 ml DAILY PRN PO 03/06/17 17:00 Pharmacy Profile Note 0 ml @ 0 mls/hr UNSCH OTHER 03/06/17 17:00 Piperacillin Sod/ Tazobactam Sod 50 ml @ 100 mls/hr Q8H IV 03/06/17 18:00 03/11/17 17:07 (Flomax) 0.4 mg DAILY PO 03/06/17 18:15 03/11/17 08:02 Sodium Chloride 1,000 ml @ 0 mls/hr Q0M PRN IV 03/07/17 12:37 03/08/17 10:38 (Heparin Inj) 8,000 units UNSCH PRN IVF 03/07/17 12:45 Sodium Chloride 1,000 ml @ 200 mls/hr Q5H PRN IV 03/07/17 12:37 Sodium Chloride 1,000 ml @ 0 mls/hr Q0M PRN IV 03/07/17 12:37 (Mannitol Inj) 12.5 gm UNSCH PRN IV 03/07/17 12:45 (Albumin 25% Inj) 25 gm UNSCH PRN IV 03/07/17 12:45 (NS Flush) 5 ml UNSCH PRN IV FLUSH 03/07/17 12:45 (Heparin Inj) UNSCH PRN .XX 03/07/17 12:45 03/08/17 10:37 (Gentamicin (Dialysis) Inj) 20 mg UNSCH PRN IV 03/07/17 12:45 03/08/17 10:37 (Zofran Inj) 4 mg UNSCH PRN IV 03/07/17 12:45 (Tylenol) 650 mg UNSCH PRN PO 03/07/17 12:45 (Benadryl) 25 mg UNSCH PRN PO 03/07/17 12:45 (Nitrostat Sl) 0.4 mg UNSCH PRN SL 03/07/17 12:45 (Catapres) 0.1 mg UNSCH PRN PO 03/07/17 12:45 (Gelfoam 12 Mm/7 Mm Top) 1 foam UNSCH PRN TOP 03/07/17 12:45 (D50w (Vial) Inj) 50 ml UNSCH PRN IV PUSH 03/09/17 10:30 (Glucagon Inj) 1 mg UNSCH PRN OTHER 03/09/17 10:30 (NovoLIN R SUPPLEMENTAL SCALE) 1 ACHS SLIDING SCALE SQ 03/09/17 11:00 03/11/17 16:35 (Duoneb Neb) 1 ampule QID NEB INH 03/10/17 12:45 03/11/17 14:54 Potassium Chloride/Sodium Chloride 1,000 ml @ 50 mls/hr Q20H IV 03/10/17 13:00 03/10/17 12:56 (SoluMEDROL INJ) 40 mg Q6HR IV PUSH 03/10/17 18:00 03/11/17 17:07 (Tenormin) 50 mg DAILY PO 03/10/17 17:00 03/11/17 08:02 (Pravachol) 40 mg HS PO 03/10/17 21:00 03/10/17 20:01 Vascular Central Line Catheter: Yes Assessment to: Continue Line: Central Venous Catheter Side: Right Location: Internal, Jugular Reason for Continuation HD A/P Assessment and Plan 1. Respiratory insufficiency. 2. Acute renal failure. 3. Hyperkalemia - resolved 4. Hyponatremia-resolved 5. Anion gap metabolic acidosis - resolved 6. Lactic acidemia. 7. Hypoglycemia - resolved 8. Leukocytosis. 9. Anemia. 10. Urinary tract infection. 11. Hypotension-resolved 12. Diabetes Mellitus with hyperglycemia. 13. Hyperlipidemia. 14. Hematuria. 15. COPD with acute exacerbation 16. Recent diagnosis of multiple sclerosis 17. Hypernatremia - Continue ICU care - Continue supplemental o2 to keep oxygen saturation >92% - continue IV antibiotics - Continue IV steroids - decrease Solumedrol to 40 mg IV Q 8 hrs. - CXR reviewed by me showed pulmonary vascular congestion - Continue IV Bumex - ordered by nephrology - Continue to monitor Lactic acid - IV fluids discontinued on 03/10 due to pulmonary vascular congestion and respiratory decompensation. - Continue Atenolol and start on PRN Hydralazine for uncontrolled htn. Start on Doxazosin 2 mg at HS. - Appreciate pulmonary recommendations - Management of Postobstructive URI as per nephrology - Seen by Dr Barrientos - HD held. Continue to monitor for renal recovery. Case discussed w RN, patient, patient's family and Dr Barrientos. Discharge Planning Continue to monitor in the ICU. Discussed John Corrales RN, MD Mar 11, 2017 20:07
[2017-03-11] MEDS ORDERED: DOXAZOSIN MESYLATE 2 MG TAB PO SCH (21:00)
[2017-03-11] MEDS: PRAVASTATIN SOD 40 MG TAB PO SCH (21:01)
[2017-03-11] MEDS: INSULIN DETEMIR 100 UNITS/ML VIAL SQ SCH (21:02)
[2017-03-12] VITALS (12 sets, daily range): BP systolic 116–186; BP diastolic 69–84; PULSE 51–75; RESP 16–24; TEMP 95.9–99; O2SAT 77–100
[2017-03-12] MEDS: CHLORHEXIDINE GLUCONATE 2 % 1 PACK (2 CLOTHS) TOP SCH (00:44)
[2017-03-12] MEDS: PIPERACIL-TAZO 2.25 GM PREMIX 50 ML IV SCH ×3 (00:44→17:35)
[2017-03-12] MEDS: methylPREDNISolone SOD SUCC 40 MG/1 ML VIAL IV PUSH SCH (05:13)
[2017-03-12] MEDS: NS + KCL 20 MEQ INJ 1,000 ML IV SCH (05:13)
[2017-03-12 06:19] LABS: ALKALINE PHOSPHATASE 63 U/L (45-117); ALT (GPT) 21 U/L (12-78); ANION GAP 9 MEQ/L (5-15); AST (GOT) 12 U/L (15-37); BICARBONATE 31.4 MEQ/L (21.0-32.0); BLOOD UREA NITROGEN 73 MG/DL (7-18); CHLORIDE 111 MEQ/L (98-107); GLOMERULAR FILTRATION RATE 15 ML/MIN (>89); MAGNESIUM 2.3 MG/DL (1.5-2.5); POTASSIUM 3.1 MEQ/L (3.5-5.1); SODIUM (NA) 151 MEQ/L (136-145); TOTAL BILIRUBIN ADULT 0.5 MG/DL (0.2-1.0)
[2017-03-12] MEDS: LOW DOSE INSULIN NOVOLIN REGULAR SUPPLEMENTAL SCALE SQ SCH ×4 (06:57→21:00)
[2017-03-12 07:25] LABS: AUTOMATED NEUTROPHIL # 9.2 TH/MM3 (1.8-7.7); BASOPHIL % 0.2 % (0.0-2.0); HEMATOCRIT 26.9 % (39.0-51.0); HEMO FLAGS AUTO DIFF; LYMPH % 7.7 % (9.0-44.0); LYMPHOCYTE # 0.8 TH/MM3 (1.0-4.8); MEAN CELL VOLUME 90.5 FL (80.0-100.0); MEAN CORPUSCULAR HEMOGLOBIN 30.3 PG (27.0-34.0); MEAN CORPUSCULAR HGB CONC 33.5 % (32.0-36.0); MONO % 8.1 % (0.0-8.0); PLATELET COUNT 288 TH/MM3 (150-450); RED BLOOD COUNT 2.98 MIL/MM3 (4.50-5.90); RED CELL DISTRIBUTION WIDTH 13.2 % (11.6-17.2)
[2017-03-12 07:26] LABS: PLATELET ESTIMATE SMEAR NORMAL (NORMAL); PLATELET MORPHOLOGY NORMAL (NORMAL); SCAN/DIFF AUTO DIFF CONFIRMED
[2017-03-12] MEDS: RESP: ALBUTEROL 2.5 MG/IPRATROPIUM 0.5 MG NEB (SCH) INH ×4 (07:44→19:48)
[2017-03-12] MEDS: ATENOLOL 50 MG TAB PO SCH (08:52)
[2017-03-12] MEDS: PANTOPRAZOLE SODIUM 40 MG VIAL IV SCH (08:52)
[2017-03-12] MEDS: DOCUSATE SODIUM 50 MG/SENNA 8.6 MG TAB PO SCH ×2 (08:52→21:00)
[2017-03-12] MEDS: TAMSULOSIN HCL 0.4 MG CAP PO SCH (08:52)
[2017-03-12] MEDS: INSULIN DETEMIR 100 UNITS/ML VIAL SQ SCH ×2 (08:55→22:39)
[2017-03-12] MEDS ORDERED: POTASSIUM CHLORIDE 10 MEQ CONTROLLED RELEASE TAB PO ONE (09:15)
[2017-03-12] MEDS: INSULIN ASPART 1,000 UNITS/10 ML VIAL SQ SCH ×4 (09:44→18:30)
--- NOTE | 2017-03-12 12:11 | EKG ---
Date Performed: 03/12/2017 Time Performed: 08:05:43 PTAGE: 72 years EKG: SINUS BRADYCARDIA MINIMAL ST DEPRESSION ABNORMAL ECG PREVIOUS TRACING : 03/06/2017 14.23 Compared to previous tracing, right bundle branch block pat tern is no longer evident. DOCTOR: Elias Rivero Interpretating Date/Time 03/12/2017 12:09:59
--- NOTE | 2017-03-12 12:32 | HHI.NPPN ---
Subjective General Problems: Edema Renal Problems: Uremia Renal Failure: Acute Interval History His vascath was dislodged yesterday, no bleeding. Renal function is better. is at bedside. (Nayeli Serrano) Review of Systems General General Remarks no complaints (Nayeli Serrano) Objective Data Data Vital Signs Date Time Temp Pulse Resp B/P (MAP) Pulse Ox O2 Delivery O2 Flow Rate FiO2 03/12/17 10:00 55 03/12/17 08:00 98.6 51 24 186/84 (118) 100 03/12/17 08:00 51 03/12/17 07:44 100 Nasal Cannula 4.00 03/12/17 07:00 Nasal Cannula 4.00 03/12/17 06:00 55 03/12/17 04:00 98.6 55 18 178/77 (110) 77 03/12/17 04:00 55 03/12/17 02:00 58 03/12/17 00:00 56 03/12/17 00:00 98.7 56 16 179/79 (112) 96 03/11/17 22:00 69 03/11/17 20:35 100 Nasal Cannula 2.00 03/11/17 20:00 63 03/11/17 20:00 98.6 63 25 141/63 (89) 100 03/11/17 19:00 97 Nasal Cannula 2.00 03/11/17 18:00 64 03/11/17 17:00 68 25 150/68 (95) 99 03/11/17 16:00 73 03/11/17 16:00 73 20 167/71 (103) 95 03/11/17 15:00 70 21 168/74 (105) 92 03/11/17 14:00 66 03/11/17 14:00 66 16 171/75 (107) 97 03/11/17 13:00 67 19 156/68 (97) 91 (Nayeli Serrano) -: 03/12/17 0529 03/12/17 0529 Imaging Last 72 hours Impressions Chest X-Ray 03/10/17 0000 Signed Impressions: Service Date/Time: Friday, March 10, 2017 16:56 - CONCLUSION: Possible mild pulmonary edema. Kacie Givens MD Tubes & Lines: Chan (Nayeli Serrano. SPECIAL NEEDS CAREGIVER) Physical Exam General Appearance: Well Developed, Well Nourished, Comfortable, Obese (Nayeli Serrano. SPECIAL NEEDS CAREGIVER) Throat Throat Exam: Oral Mucosa [place] & Moist (Naylei Serrano. SPECIAL NEEDS CAREGIVER) Pulmonary Resp Exam: Rhonchi, Decreased Bases (Nayeli Serrano. SPECIAL NEEDS CAREGIVER) Cardiology CV Exam: Normal Sinus Rhythm, Good Perfusion (Nayeli Serrano. SPECIAL NEEDS CAREGIVER) Gastrointestinal/Abdomen GI Exam: Soft, Non-Tender, Bowel Sounds Present GI Remarks ascites, umbilical hernia (Nayeli Serrano. SPECIAL NEEDS CAREGIVER) Genitourinary Remarks hematuria in chan (Nayeli Serrano B. SPECIAL NEEDS CAREGIVER) Musculoskeletal MS Exam: Joints Intact, Normal Tone (Nayeli Serrano. SPECIAL NEEDS CAREGIVER) Integumentary Skin Exam: Warm, Dry (Nayeli Serrano. SPECIAL NEEDS CAREGIVER) Extremeties Extremities Exam: Pedal Pulses Palpable, Trace Edema (Nayeli Serrano. SPECIAL NEEDS CAREGIVER) Neurologic Neuro Exam: Alert, Awake, Oriented, Speech Clear, Moving All Extremities (Nayeli Serrano. SPECIAL NEEDS CAREGIVER) Psychiatric Psych Exam: Appropriate Responses (Nayeli Serrano SPECIAL NEEDS CAREGIVER) VTE Prophylaxis Device: SCDs (Nayeli Serrano. SPECIAL NEEDS CAREGIVER) Assessment/Plan Discussed Condition With: Patient, Spouse Assessment Summary: URI/Acute Renal Failure, Fluid/Volume Overload, Hypertension Electrolyte Assessment: Hyperkalemia Problem List: (1) Acute renal failure ICD Codes: N17.9 - Acute kidney failure, unspecified Status: Acute Plan: In a patient with normal renal function in October originally presented with urinary obstruction, chan placed, stated on flomax he required urgent dialysis on Sun/ now in renal recovery, renal function is better. continue to follow creatinine, urine output vascath has been removed, do not anticipate any additional dialysis treatments Na 151, he was started on 1/4 NS with 40 mEq KCL @ 42cc/hr labs in AM (2) Hyperkalemia ICD Codes: E87.5 - Hyperkalemia Status: Resolved Plan: Improved hypokalemia now with poor PO intake. oral replacement ordered, follow up labs (3) Metabolic acidosis ICD Codes: E87.2 - Acidosis Status: Acute Plan: likely due to renal failure, also may be due to metformin use corrected, monitor (4) Hypoglycemia ICD Codes: E16.2 - Hypoglycemia, unspecified Status: Resolved Plan: continue to monitor glucose (5) Sepsis ICD Codes: A41.9 - Sepsis, unspecified organism Status: Acute Plan: high lactic acid, ordered Zosyn cultures have been drawn, negative to date he has left lower lobe pneumonia (Nayeli Serrano) Plan patient was seen and examined. Renal function appears to be improving. Agree with above assessment and plan. (Javi Maria MD) Problem Qualifiers (1) Acute renal failure: (2) Sepsis: Nayeli Serrano Mar 12, 2017 12:32 Javi Maria MD Mar 13, 2017 11:07
[2017-03-12] MEDS: POTASSIUM CHLORIDE INJ 40 MEQ, SODIUM CHLORIDE 23.4% INJ 38.5 MEQ in WATER STERILE FOR ... IV SCH (13:18)
--- NOTE | 2017-03-12 14:25 | HHI.PR ---
Subjective Remarks Patient feels better denies cp/sob good urine output denies fevers/chills creatinine is trending down bp noted to be very elevated Patient removed his vas catheter overnight. Objective Vitals Vital Signs Date Time Temp Pulse Resp B/P (MAP) Pulse Ox O2 Delivery O2 Flow Rate FiO2 03/12/17 12:00 75 03/12/17 10:00 55 03/12/17 08:00 98.6 51 24 186/84 (118) 100 03/12/17 08:00 51 03/12/17 07:44 100 Nasal Cannula 4.00 03/12/17 07:00 Nasal Cannula 4.00 03/12/17 06:00 55 03/12/17 04:00 98.6 55 18 178/77 (110) 77 03/12/17 04:00 55 03/12/17 02:00 58 03/12/17 00:00 56 03/12/17 00:00 98.7 56 16 179/79 (112) 96 03/11/17 22:00 69 03/11/17 20:35 100 Nasal Cannula 2.00 03/11/17 20:00 63 03/11/17 20:00 98.6 63 25 141/63 (89) 100 03/11/17 19:00 97 Nasal Cannula 2.00 03/11/17 18:00 64 03/11/17 17:00 68 25 150/68 (95) 99 03/11/17 16:00 73 03/11/17 16:00 73 20 167/71 (103) 95 03/11/17 15:00 70 21 168/74 (105) 92 I/O 03/11/17 03/11/17 03/11/17 03/12/17 03/12/17 03/12/17 06:59 14:59 22:59 06:59 14:59 22:59 Intake Total 50 ml 70 ml 50 ml 350 ml Output Total 350 ml 500 ml 800 ml Balance -300 ml -430 ml 50 ml -450 ml Intake Oral 20 ml IV Total 50 ml 50 ml 50 ml 350 ml Output Urine Total 350 ml 500 ml 800 ml # Bowel Movements 1 1 Result Diagram: 03/12/17 0529 03/12/17 0529 Imaging Last Impressions Chest X-Ray 03/10/17 0000 Signed Impressions: Service Date/Time: Friday, March 10, 2017 16:56 - CONCLUSION: Possible mild pulmonary edema. K. Emanuel Givens MD Head CT 03/06/17 1352 Signed Impressions: Service Date/Time: Monday, March 06, 2017 15:25 - CONCLUSION: 1. No acute intracranial abnormality. 2. Atrophy and chronic small vessel ischemic change. Jeremy Rutherford Jr., MD Abdomen/Pelvis CT 03/06/17 0000 Signed Impressions: Service Date/Time: Monday, March 06, 2017 15:29 - CONCLUSION: 1. There is extensive inflammatory change around the right ureteral pelvic junction. There is no significant hydronephrosis in the kidney. There is some inflammatory change around the right kidney as well. Examination would suggest either recent stone passage or possible UTI. If symptoms fail to improve post contrast imaging may be of benefit for further assessment. 2. Atherosclerotic plaquing the coronary arteries. 3. COPD changes in the lung bases. Elliott Salvador MD Objective Remarks AAOx3, NAD on nasal canula no respiratory distress Clear to auscultation bilaterally. abdomen, soft, NT, ND no edema in lower extremities. Medications and IVs Current Medications Medications (Trade) Dose Ordered Sig/Juan Route Start Time Stop Time Status Last Admin (NS Flush) 2 ml UNSCH PRN IV FLUSH 03/06/17 14:00 03/06/17 17:13 (Protonix Inj) 40 mg DAILY IV 03/06/17 18:00 03/12/17 08:52 (Duoneb Neb) 1 ampule Q2HR NEB PRN INH 03/06/17 17:00 Miscellaneous Information 1 Q361D XX 03/06/17 17:00 03/06/17 17:00 (Chlorhexidine 2% Cloth) Taper DAILY@04 TOP 03/07/17 04:00 03/03/18 03:59 03/12/17 00:44 (Chlorhexidine 2% Cloth) 3 pack UNSCH PRN TOP 03/06/17 17:00 (Batsheva-Colace) 1 tab BID PO 03/06/17 21:00 03/11/17 21:01 (Milk Of Magnesia Liq) 30 ml Q12H PRN PO 03/06/17 17:00 (Senokot) 17.2 mg Q12H PRN PO 03/06/17 17:00 (Dulcolax Supp) 10 mg DAILY PRN RECTAL 03/06/17 17:00 (Lactulose Liq) 30 ml DAILY PRN PO 03/06/17 17:00 Pharmacy Profile Note 0 ml @ 0 mls/hr UNSCH OTHER 03/06/17 17:00 Piperacillin Sod/ Tazobactam Sod 50 ml @ 100 mls/hr Q8H IV 03/06/17 18:00 03/12/17 09:43 (Flomax) 0.4 mg DAILY PO 03/06/17 18:15 03/12/17 08:52 Sodium Chloride 1,000 ml @ 0 mls/hr Q0M PRN IV 03/07/17 12:37 03/08/17 10:38 (Heparin Inj) 8,000 units UNSCH PRN IVF 03/07/17 12:45 Sodium Chloride 1,000 ml @ 200 mls/hr Q5H PRN IV 03/07/17 12:37 Sodium Chloride 1,000 ml @ 0 mls/hr Q0M PRN IV 03/07/17 12:37 (Mannitol Inj) 12.5 gm UNSCH PRN IV 03/07/17 12:45 (Albumin 25% Inj) 25 gm UNSCH PRN IV 03/07/17 12:45 (NS Flush) 5 ml UNSCH PRN IV FLUSH 03/07/17 12:45 (Heparin Inj) UNSCH PRN .XX 03/07/17 12:45 03/08/17 10:37 (Gentamicin (Dialysis) Inj) 20 mg UNSCH PRN IV 03/07/17 12:45 03/08/17 10:37 (Zofran Inj) 4 mg UNSCH PRN IV 03/07/17 12:45 (Tylenol) 650 mg UNSCH PRN PO 03/07/17 12:45 (Benadryl) 25 mg UNSCH PRN PO 03/07/17 12:45 (Nitrostat Sl) 0.4 mg UNSCH PRN SL 03/07/17 12:45 (Catapres) 0.1 mg UNSCH PRN PO 03/07/17 12:45 03/12/17 08:53 (Gelfoam 12 Mm/7 Mm Top) 1 foam UNSCH PRN TOP 03/07/17 12:45 (D50w (Vial) Inj) 50 ml UNSCH PRN IV PUSH 03/09/17 10:30 (Glucagon Inj) 1 mg UNSCH PRN OTHER 03/09/17 10:30 (NovoLIN R SUPPLEMENTAL SCALE) 1 ACHS SLIDING SCALE SQ 03/09/17 11:00 03/12/17 11:00 (Duoneb Neb) 1 ampule QID NEB INH 03/10/17 12:45 03/12/17 11:12 (Tenormin) 50 mg DAILY PO 03/10/17 17:00 Future Hold 03/11/17 08:02 (Pravachol) 40 mg HS PO 03/10/17 21:00 03/11/17 21:01 Potassium Chloride 40 meq/ Sodium Chloride 38.5 meq/Sterile Water 1,029.625 ml @ 42 mls/hr Q24H IV 03/12/17 13:00 03/12/17 13:18 (Cardura) 4 mg HS PO 03/12/17 21:00 (Deltasone) 20 mg BID PO 03/12/17 21:00 (NovoLOG INJ) 7 units TIDPC SQ 03/12/17 13:30 (Levemir Inj) 15 units Q12HR SQ 03/12/17 21:00 (Apresoline Inj) 10 mg Q30M PRN IV PUSH 03/12/17 14:30 Urinary Catheter: No Vascular Central Line Catheter: No A/P Problem List: (1) Acute renal failure ICD Code: N17.9 - Acute kidney failure, unspecified Status: Acute Plan: Patient presented with an elevated creatinine of 10.1 and required a Vas- Cath to be placed to start hemodialysis. The patient received a couple of hemodialysis treatments after which the creatinine has been trending down. Creatinine continues to trend down, it is 3.94 down from 4.1. Continue to monitor BUN/creatinine, strict I's and O's Patient status post Bumex IV 1 mg 2 Nephrology has been consulted and is following the patient (2) Hyperkalemia ICD Code: E87.5 - Hyperkalemia Status: Resolved Plan: Treated with hemodialysis, now the patient hypokalemic. Patient started on one fourth normal saline with potassium due to hyperkalemia. (3) Hypoglycemia ICD Code: E16.2 - Hypoglycemia, unspecified Status: Resolved Plan: Now resolved. Patient now is hyperglycemic. Continue necessary with insulin NovoLog. (4) Metabolic acidosis ICD Code: E87.2 - Acidosis Status: Acute Plan: Due to URI. Now resolved sp treatment with sodium bicarbonate drip. (5) Encephalopathy ICD Code: G93.40 - Encephalopathy, unspecified Plan: Likely metabolic encephalopathy due to hypoglycemia and possible sepsis due to COPD exacerbation. (6) Acute hypoxemic respiratory failure ICD Code: J96.01 - Acute respiratory failure with hypoxia Status: Resolved Plan: Patient with elevated requirements of oxygen. Likely secondary to COPD exacerbation. Oxygen requirement not improving. Continue supplemental oxygen to keep oxygen saturation more than 92%. (7) Lactic acidosis ICD Code: E87.2 - Acidosis Status: Acute Plan: Patient presented with elevated lactic acidosis with lactic acid of 5.8. Likely secondary to sepsis and acute kidney injury. Repeat lactic acid on 03/12/17 shows a resolved lactic acidosis with lactic acid of 0.9 which is normal. (8) Leukocytosis ICD Code: D72.829 - Elevated white blood cell count, unspecified Plan: Cytosis likely secondary to sepsis. WBC on admission 16.1 K, leukocytosis went down to 10k on 03/11, slightly elevated to 11 K today, however the patients on steroids. The patient has no fevers and is clinically improving. Continue to monitor CBC with differential. (9) Hypernatremia ICD Code: E87.0 - Hyperosmolality and hypernatremia Status: Acute Plan: Patient started having elevated sodium on 03/10/17. Sodium is trending up, today 151. Start the patient on one fourth normal saline and continue to monitor BMP. The sodium should not drop more than 10 points in 24 hours. (10) Multiple sclerosis ICD Code: G35 - Multiple sclerosis Plan: Continue to monitor neurological status. (11) Hematuria ICD Code: R31.9 - Hematuria, unspecified Status: Resolved Plan: Seems to have resolved. Hemoglobin stable. (12) Sepsis ICD Code: A41.9 - Sepsis, unspecified organism Status: Acute Plan: Present on admission. Patient with leukocytosis of 16 K and hypoxemia as well as after mental status. started on IV antibiotics and initially under the care of the director strategic planning. Continue broad-spectrum IV antibiotic therapy - patient currently on IV Zosyn. Blood cultures obtained and negative 5 days (13) COPD exacerbation ICD Code: J44.1 - Chronic obstructive pulmonary disease with (acute) exacerbation Plan: COPD exacerbation is improving, patient started on IV Solu-Medrol. DC IV Solu-Medrol and start on oral prednisone 20 minutes by mouth twice a day. I will start the patient also on Symbicort and incentive spirometry. Assessment and Plan DVT prophylaxis: Continue SCDs, avoid chemoprophylaxis due to recent hematuria. GI prophylaxis: Continue PPI. Discharge Planning Ok to transfer to the medical floor. Discussed w RN. Problem Qualifiers (1) Acute renal failure: (2) Hematuria: Qualified Codes: R31.0 - Gross hematuria (3) Sepsis: John Medina MD Mar 12, 2017 14:25
[2017-03-12] MEDS ORDERED: hydrALAZINE HCL 20 MG/ML VIAL IV PUSH PRN (14:30)
[2017-03-12 16:13] LABS: HEMOGLOBIN A1a 0.9 %; HEMOGLOBIN A1b 2.9 %; HEMOGLOBIN Ao 77.9 %; HEMOGLOBIN LA1C 3.1 %; HEMOGLOBIN P3 5.2 %
[2017-03-12] MEDS: BUDESONIDE-FORMOTEROL 160/4.5 MCG INHALER INH SCH (22:22)
[2017-03-12] MEDS: DOXAZOSIN MESYLATE 4 MG TAB PO SCH (22:23)
[2017-03-12] MEDS: PRAVASTATIN SOD 40 MG TAB PO SCH (22:23)
[2017-03-12] MEDS: predniSONE 20 MG TAB PO SCH (22:23)
[2017-03-13] VITALS (9 sets, daily range): BP systolic 162–198; BP diastolic 72–82; PULSE 53–77; RESP 18–20; TEMP 97.2–98; O2SAT 92–96
[2017-03-13] MEDS: PIPERACIL-TAZO 2.25 GM PREMIX 50 ML IV SCH ×3 (02:20→17:07)
[2017-03-13] MEDS: CHLORHEXIDINE GLUCONATE 2 % 1 PACK (2 CLOTHS) TOP SCH (04:00)
[2017-03-13 06:07] LABS: AUTOMATED NEUTROPHIL # 10.4 TH/MM3 (1.8-7.7); BASOPHIL % 0.1 % (0.0-2.0); EOSINOPHIL % 0.2 % (0.0-4.0); LYMPH % 7.8 % (9.0-44.0); LYMPHOCYTE # 0.9 TH/MM3 (1.0-4.8); MEAN CORPUSCULAR HEMOGLOBIN 30.2 PG (27.0-34.0); MEAN CORPUSCULAR HGB CONC 32.8 % (32.0-36.0); NEUT % 86.9 % (16.0-70.0); PLATELET COUNT 247 TH/MM3 (150-450); RED BLOOD COUNT 2.71 MIL/MM3 (4.50-5.90); RED CELL DISTRIBUTION WIDTH 13.1 % (11.6-17.2); WHITE BLOOD COUNT 11.9 TH/MM3 (4.0-11.0)
[2017-03-13 06:24] LABS: ANION GAP 8 MEQ/L (5-15); AST (GOT) 13 U/L (15-37); BICARBONATE 29.1 MEQ/L (21.0-32.0); BLOOD UREA NITROGEN 66 MG/DL (7-18); CHLORIDE 117 MEQ/L (98-107); GLOMERULAR FILTRATION RATE 19 ML/MIN (>89); POTASSIUM 3.5 MEQ/L (3.5-5.1); SODIUM (NA) 154 MEQ/L (136-145)
[2017-03-13 06:25] LABS: ALT (GPT) 21 U/L (12-78)
[2017-03-13 06:27] LABS: ALKALINE PHOSPHATASE 55 U/L (45-117); TOTAL BILIRUBIN ADULT 0.4 MG/DL (0.2-1.0)
[2017-03-13] MEDS: LOW DOSE INSULIN NOVOLIN REGULAR SUPPLEMENTAL SCALE SQ SCH ×4 (06:27→20:25)
[2017-03-13 06:38] LABS: HEMO FLAGS AUTO DIFF
[2017-03-13 07:16] LABS: PLATELET ESTIMATE SMEAR NORMAL (NORMAL); PLATELET MORPHOLOGY NORMAL (NORMAL); SCAN/DIFF AUTO DIFF CONFIRMED
[2017-03-13] MEDS: RESP: ALBUTEROL 2.5 MG/IPRATROPIUM 0.5 MG NEB (SCH) INH ×4 (08:44→20:10)
[2017-03-13] MEDS: predniSONE 20 MG TAB PO SCH (08:54)
[2017-03-13] MEDS: TAMSULOSIN HCL 0.4 MG CAP PO SCH (08:54)
[2017-03-13] MEDS: DOCUSATE SODIUM 50 MG/SENNA 8.6 MG TAB PO SCH ×2 (08:54→20:23)
[2017-03-13] MEDS: PANTOPRAZOLE SODIUM 40 MG VIAL IV SCH (08:54)
[2017-03-13] MEDS: INSULIN DETEMIR 100 UNITS/ML VIAL SQ SCH ×2 (08:56→20:25)
[2017-03-13] MEDS: INSULIN ASPART 1,000 UNITS/10 ML VIAL SQ SCH ×3 (08:59→17:08)
[2017-03-13] MEDS: BUDESONIDE-FORMOTEROL 160/4.5 MCG INHALER INH SCH ×2 (09:25→20:24)
[2017-03-13] MEDS ORDERED: VANCOMYCIN INJ 1,500 MG in SODIUM CHLORID 0.9% 500 ML INJ 500 ML IV ONE (11:00)
--- NOTE | 2017-03-13 11:35 | HHI.NPPN ---
Subjective General Problems: Edema Renal Problems: Uremia Renal Failure: Acute Interval History He is awake, still confused. Renal function is better. Hypernatremic with poor oral intake. (Nayeli Serrano) Review of Systems General General Remarks no complaints (Nayeli Serrano) Objective Data Data Vital Signs Date Time Temp Pulse Resp B/P (MAP) Pulse Ox O2 Delivery O2 Flow Rate FiO2 03/13/17 08:45 Nasal Cannula 2.00 03/13/17 08:44 96 Nasal Cannula 3.00 03/13/17 08:00 97.2 53 20 180/74 (109) 94 03/13/17 04:00 97.2 60 18 198/82 (120) 94 03/13/17 00:00 98.0 64 18 169/72 (104) 94 03/12/17 20:00 97.4 70 18 116/76 (89) 100 03/12/17 20:00 100 Nasal Cannula 4.00 03/12/17 20:00 95.9 66 18 159/69 (99) 91 03/12/17 19:50 98 Nasal Cannula 3.00 03/12/17 16:00 59 03/12/17 16:00 99.0 59 18 177/77 (110) 96 03/12/17 14:00 62 03/12/17 12:00 75 03/12/17 12:00 98.0 75 16 168/77 (107) 93 (Nayeli Serrano) -: 03/13/17 0509 03/13/17 0509 Imaging Last Impressions Chest X-Ray 03/10/17 0000 Signed Impressions: Service Date/Time: Friday, March 10, 2017 16:56 - CONCLUSION: Possible mild pulmonary edema. Kacie Givens MD Head CT 03/06/17 1352 Signed Impressions: Service Date/Time: Monday, March 06, 2017 15:25 - CONCLUSION: 1. No acute intracranial abnormality. 2. Atrophy and chronic small vessel ischemic change. Jeremy Rutherford Jr., MD Abdomen/Pelvis CT 03/06/17 0000 Signed Impressions: Service Date/Time: Monday, March 06, 2017 15:29 - CONCLUSION: 1. There is extensive inflammatory change around the right ureteral pelvic junction. There is no significant hydronephrosis in the kidney. There is some inflammatory change around the right kidney as well. Examination would suggest either recent stone passage or possible UTI. If symptoms fail to improve post contrast imaging may be of benefit for further assessment. 2. Atherosclerotic plaquing the coronary arteries. 3. COPD changes in the lung bases. Elliott Salvador MD Tubes & Lines: Chan (Zach,Nayeli B. [employer] SECURITY CONSULTANT) Physical Exam General Appearance: Well Developed, Well Nourished, Comfortable, Obese (Zach,Nayeli B. [employer] SECURITY CONSULTANT) Throat Throat Exam: Oral Mucosa [place] & Moist (Zach,Nayeli B. [employer] SECURITY CONSULTANT) Pulmonary Resp Exam: No Distress, Rhonchi, Decreased Bases (Zach,Nayeli B. [employer] SECURITY CONSULTANT) Cardiology CV Exam: Normal Sinus Rhythm, Good Perfusion (Zach,Nayeli B. [employer] SECURITY CONSULTANT) Gastrointestinal/Abdomen GI Exam: Soft, Non-Tender, Bowel Sounds Present GI Remarks ascites, umbilical hernia (Zach,Nayeli B. [employer] SECURITY CONSULTANT) Genitourinary Remarks hematuria in chan (Zach,Nayeli B. [employer] SECURITY CONSULTANT) Musculoskeletal MS Exam: Joints Intact, Normal Tone (Zach,Nayeli B. [employer] SECURITY CONSULTANT) Integumentary Skin Exam: Warm, Dry (Zach,Nayeli B. [employer] SECURITY CONSULTANT) Extremeties Extremities Exam: Pedal Pulses Palpable, Trace Edema (Zach,Nayeli B. [employer] SECURITY CONSULTANT) Neurologic Neuro Exam: Alert, Awake, Oriented, Speech Clear, Moving All Extremities (Zach,Nayeli B. [employer] SECURITY CONSULTANT) Psychiatric Psych Exam: Appropriate Responses (Zach,Nayeli B. [employer] SECURITY CONSULTANT) VTE Prophylaxis Device: SCDs (Zach,Nayeli B. [employer] SECURITY CONSULTANT) Assessment/Plan Discussed Condition With: Patient, Spouse Assessment Summary: URI/Acute Renal Failure, Fluid/Volume Overload, Hypertension Electrolyte Assessment: Hyperkalemia Problem List: (1) Acute renal failure ICD Codes: N17.9 - Acute kidney failure, unspecified Status: Acute Plan: In a patient with normal renal function in October originally presented with urinary obstruction, chan placed, stated on flomax he required urgent dialysis on Sun/ he is in renal recovery, renal function improving continue to follow creatinine, urine output vascath has been removed hypernatremic, on 1/4 NS with 40 mEq KCL @ 42cc/hr oral intake encouraged labs in AM avoid nephrotoxic (2) Hyperkalemia ICD Codes: E87.5 - Hyperkalemia Status: Resolved Plan: corrected, follow BMP (3) Metabolic acidosis ICD Codes: E87.2 - Acidosis Status: Acute Plan: likely due to renal failure, also may be due to metformin use corrected, monitor (4) Hypoglycemia ICD Codes: E16.2 - Hypoglycemia, unspecified Status: Resolved Plan: continue to monitor glucose his A1c is 9 (5) Sepsis ICD Codes: A41.9 - Sepsis, unspecified organism Status: Acute Plan: clinically improving he has left lower lobe pneumonia on vancomycin and zosyn, consider stopping vancomycin given renal failure (Nayeli Serrano) Plan patient was seen and examined. Very lethargic. Renal function is better. Continue to monitor. Agree with above assessment and plan. (Javi Maria MD) Problem Qualifiers (1) Acute renal failure: (2) Sepsis: Nayeli Serrano Mar 13, 2017 11:35 Javi Maria MD Mar 13, 2017 16:28
[2017-03-13] MEDS: POTASSIUM CHLORIDE INJ 40 MEQ, SODIUM CHLORIDE 23.4% INJ 38.5 MEQ in WATER STERILE FOR ... IV SCH ×2 (12:36→20:27)
--- NOTE | 2017-03-13 13:47 | RADRPT ---
EXAM DATE/TIME: 03/13/2017 13:14 [facility] COMPARISON: CHEST SINGLE AP, March 10, 2017, 16:56. INDICATIONS : Shortness of breath. MEDICAL HISTORY : Diabetes mellitus type II. SURGICAL HISTORY : None. ENCOUNTER: Subsequent ACUITY: 2 weeks PAIN SCORE: 0/10 LOCATION: Bilateral chest FINDINGS: A single portable frontal view of the chest is vague areas of intraalveolar opacity within the upper lobes bilaterally. No effusions. Heart is normal in size. Previously seen dialysis catheter on the ca ght is no longer present. Heart is normal in size. CONCLUSION: Patchy bilateral intra-alveolar infiltrates. Jeremy Rutherford Jr., MD on March 13, 2017 at 13:45 Board Certified Radiologist. This report was verified electronically.
--- NOTE | 2017-03-13 15:58 | HHI.PR ---
Subjective Remarks deferred entry - patient seen at 11:30 am patient awake but still confused on restraints afebrile sodium trending up Objective Vitals Vital Signs Date Time Temp Pulse Resp B/P (MAP) Pulse Ox O2 Delivery O2 Flow Rate FiO2 03/13/17 15:38 69 162/72 (102) 96 03/13/17 11:44 97.2 68 18 177/74 (108) 92 03/13/17 08:45 Nasal Cannula 2.00 03/13/17 08:44 96 Nasal Cannula 3.00 03/13/17 08:00 97.2 53 20 180/74 (109) 94 03/13/17 04:00 97.2 60 18 198/82 (120) 94 03/13/17 00:00 98.0 64 18 169/72 (104) 94 03/12/17 20:00 97.4 70 18 116/76 (89) 100 03/12/17 20:00 100 Nasal Cannula 4.00 03/12/17 20:00 95.9 66 18 159/69 (99) 91 03/12/17 19:50 98 Nasal Cannula 3.00 03/12/17 16:00 59 03/12/17 16:00 99.0 59 18 177/77 (110) 96 I/O 03/12/17 03/12/17 03/12/17 03/13/17 03/13/17 03/13/17 07:00 15:00 23:00 07:00 15:00 23:00 Intake Total 350 ml 819 ml 50 ml Output Total 800 ml 600 ml 725 ml Balance -450 ml 219 ml -675 ml IV Total 350 ml 819 ml 50 ml Output Urine Total 800 ml 600 ml 725 ml # Bowel Movements 1 2 Result Diagram: 03/13/17 0509 03/13/17 0509 Imaging Last Impressions Chest X-Ray 03/10/17 0000 Signed Impressions: Service Date/Time: Friday, March 10, 2017 16:56 - CONCLUSION: Possible mild pulmonary edema. Kacie Givens MD Head CT 03/06/17 1352 Signed Impressions: Service Date/Time: Monday, March 06, 2017 15:25 - CONCLUSION: 1. No acute intracranial abnormality. 2. Atrophy and chronic small vessel ischemic change. Jeremy Rutherford Jr., MD Abdomen/Pelvis CT 03/06/17 0000 Signed Impressions: Service Date/Time: Monday, March 06, 2017 15:29 - CONCLUSION: 1. There is extensive inflammatory change around the right ureteral pelvic junction. There is no significant hydronephrosis in the kidney. There is some inflammatory change around the right kidney as well. Examination would suggest either recent stone passage or possible UTI. If symptoms fail to improve post contrast imaging may be of benefit for further assessment. 2. Atherosclerotic plaquing the coronary arteries. 3. COPD changes in the lung bases. Elliott Salvador MD Objective Remarks AAOx3, NAD, confused on nasal canula no respiratory distress Clear to auscultation bilaterally. abdomen, soft, NT, ND no edema in lower extremities. Procedures Hemodialysis Medications and IVs Current Medications Medications (Trade) Dose Ordered Sig/Juan Route Start Time Stop Time Status Last Admin (NS Flush) 2 ml UNSCH PRN IV FLUSH 03/06/17 14:00 03/06/17 17:13 (Protonix Inj) 40 mg DAILY IV 03/06/17 18:00 03/13/17 08:54 (Duoneb Neb) 1 ampule Q2HR NEB PRN INH 03/06/17 17:00 Miscellaneous Information 1 Q361D XX 03/06/17 17:00 03/06/17 17:00 (Chlorhexidine 2% Cloth) Taper DAILY@04 TOP 03/07/17 04:00 03/03/18 03:59 03/12/17 00:44 (Chlorhexidine 2% Cloth) 3 pack UNSCH PRN TOP 03/06/17 17:00 (Batsheva-Colace) 1 tab BID PO 03/06/17 21:00 03/13/17 08:54 (Milk Of Magnesia Liq) 30 ml Q12H PRN PO 03/06/17 17:00 (Senokot) 17.2 mg Q12H PRN PO 03/06/17 17:00 (Dulcolax Supp) 10 mg DAILY PRN RECTAL 03/06/17 17:00 (Lactulose Liq) 30 ml DAILY PRN PO 03/06/17 17:00 Pharmacy Profile Note 0 ml @ 0 mls/hr UNSCH OTHER 03/06/17 17:00 Piperacillin Sod/ Tazobactam Sod 50 ml @ 100 mls/hr Q8H IV 03/06/17 18:00 03/13/17 10:01 (Flomax) 0.4 mg DAILY PO 03/06/17 18:15 03/13/17 08:54 Sodium Chloride 1,000 ml @ 0 mls/hr Q0M PRN IV 03/07/17 12:37 03/08/17 10:38 (Heparin Inj) 8,000 units UNSCH PRN IVF 03/07/17 12:45 Sodium Chloride 1,000 ml @ 200 mls/hr Q5H PRN IV 03/07/17 12:37 Sodium Chloride 1,000 ml @ 0 mls/hr Q0M PRN IV 03/07/17 12:37 (Mannitol Inj) 12.5 gm UNSCH PRN IV 03/07/17 12:45 (Albumin 25% Inj) 25 gm UNSCH PRN IV 03/07/17 12:45 (NS Flush) 5 ml UNSCH PRN IV FLUSH 03/07/17 12:45 (Heparin Inj) UNSCH PRN .XX 03/07/17 12:45 03/08/17 10:37 (Gentamicin (Dialysis) Inj) 20 mg UNSCH PRN IV 03/07/17 12:45 03/08/17 10:37 (Zofran Inj) 4 mg UNSCH PRN IV 03/07/17 12:45 (Tylenol) 650 mg UNSCH PRN PO 03/07/17 12:45 (Benadryl) 25 mg UNSCH PRN PO 03/07/17 12:45 (Nitrostat Sl) 0.4 mg UNSCH PRN SL 03/07/17 12:45 (Catapres) 0.1 mg UNSCH PRN PO 03/07/17 12:45 03/12/17 08:53 (Gelfoam 12 Mm/7 Mm Top) 1 foam UNSCH PRN TOP 03/07/17 12:45 (D50w (Vial) Inj) 50 ml UNSCH PRN IV PUSH 03/09/17 10:30 (Glucagon Inj) 1 mg UNSCH PRN OTHER 03/09/17 10:30 (NovoLIN R SUPPLEMENTAL SCALE) 1 ACHS SLIDING SCALE SQ 03/09/17 11:00 03/13/17 11:00 (Tenormin) 50 mg DAILY PO 03/10/17 17:00 Future Hold 03/11/17 08:02 (Pravachol) 40 mg HS PO 03/10/17 21:00 03/12/17 22:23 Potassium Chloride 40 meq/ Sodium Chloride 38.5 meq/Sterile Water 1,029.625 ml @ 100 mls/hr [id number] IV 03/12/17 13:00 03/13/17 12:36 (Cardura) 4 mg HS PO 03/12/17 21:00 03/12/17 22:23 (NovoLOG INJ) 7 units TIDPC SQ 03/12/17 13:30 03/13/17 13:49 (Levemir Inj) 15 units Q12HR SQ 03/12/17 21:00 03/13/17 08:56 (Apresoline Inj) 10 mg Q30M PRN IV PUSH 03/12/17 14:30 (Symbicort 160-4.5 Inh) 2 puff Q12HR INH 03/12/17 21:00 03/13/17 09:25 (Duoneb Neb) 1 ampule QID NEB INH 03/13/17 16:00 03/13/17 16:23 (Deltasone) 20 mg DAILY PO 03/14/17 09:00 A/P Problem List: (1) Acute renal failure ICD Code: N17.9 - Acute kidney failure, unspecified Status: Acute (2) Hyperkalemia ICD Code: E87.5 - Hyperkalemia Status: Resolved (3) Hypoglycemia ICD Code: E16.2 - Hypoglycemia, unspecified Status: Resolved (4) Metabolic acidosis ICD Code: E87.2 - Acidosis Status: Acute (5) Encephalopathy ICD Code: G93.40 - Encephalopathy, unspecified (6) Acute hypoxemic respiratory failure ICD Code: J96.01 - Acute respiratory failure with hypoxia Status: Resolved (7) Lactic acidosis ICD Code: E87.2 - Acidosis Status: Acute (8) Leukocytosis ICD Code: D72.829 - Elevated white blood cell count, unspecified (9) Hypernatremia ICD Code: E87.0 - Hyperosmolality and hypernatremia Status: Acute (10) Multiple sclerosis ICD Code: G35 - Multiple sclerosis (11) Hematuria ICD Code: R31.9 - Hematuria, unspecified Status: Resolved (12) Sepsis ICD Code: A41.9 - Sepsis, unspecified organism Status: Acute (13) COPD exacerbation ICD Code: J44.1 - Chronic obstructive pulmonary disease with (acute) exacerbation Assessment and Plan (1) Acute renal failure Plan: Patient presented with an elevated creatinine of 10.1 and required a Vas- Cath to be placed to start hemodialysis. The patient received a couple of hemodialysis treatments after which the creatinine has been trending down. Creatinine continues to trend down, it is 3.94 down from 4.1. Continue to monitor BUN/creatinine, strict I's and O's Patient status post Bumex IV 1 mg 2 Nephrology has been consulted and is following the patient 03/13 Creatinine is trending down - 3.1. Not requiring further dialysis. Follow- up nephrology recommendations. (2) Hyperkalemia Plan: Treated with hemodialysis, now the patient hypokalemic. Patient started on one fourth normal saline with potassium due to hypokalemia. (3) Hypoglycemia Plan: Now resolved. Patient now is hyperglycemic. Continue SSI with insulin NovoLog. (4) Metabolic acidosis Plan: Due to URI. Now resolved sp treatment with sodium bicarbonate drip. (5) Encephalopathy Plan: Likely metabolic encephalopathy due to hypoglycemia and possible sepsis due to COPD exacerbation. 03/13 Patient is still confused likely due to worsening hyponatremia. Neuro checks every 4 hours. (6) Acute hypoxemic respiratory failure Plan: Patient with elevated requirements of oxygen. Likely secondary to COPD exacerbation. oxygen requirement has improved, patient is down to 2 liters nasal canula. Continue supplemental oxygen to keep oxygen saturation more than 92%. (7) Lactic acidosis Plan: Patient presented with elevated lactic acidosis with lactic acid of 5.8. Likely secondary to sepsis and acute kidney injury. Repeat lactic acid on 03/12/17 shows a resolved lactic acidosis with lactic acid of 0.9 which is normal. (8) Leukocytosis Plan: Cytosis likely secondary to sepsis. WBC on admission 16.1 K, leukocytosis went down to 10k on 03/11, slightly elevated to 11 K today, however the patients on steroids. The patient has no fevers and is clinically improving. Continue to monitor CBC with differential. 03/13 WBC trending down from 19k to 12 k. continue to monitor CBC w diff. (9) Hypernatremia Plan: Patient started having elevated sodium on 03/10/17. Sodium is trending up, today 151. Start the patient on one fourth normal saline and continue to monitor BMP. The sodium should not drop more than 10 points in 24 hours.\ 03/13 Worsening sodium 151 - 154 will increase rate of 1/4 ns to 100 ml/hr - monitor BMP every 6 hrs. (10) Multiple sclerosis ICD Code: G35 - Multiple sclerosis Plan: Continue to monitor neurological status. (11) Hematuria Plan: Seems to have resolved. Hemoglobin stable. (12) Sepsis Plan: Present on admission. Patient with leukocytosis of 16 K and hypoxemia as well as after mental status. started on IV antibiotics and initially under the care of the child development instructor. Continue broad-spectrum IV antibiotic therapy - patient currently on IV Zosyn. Blood cultures obtained and negative 5 days 03/13 Improving. Leukocytosis and hypoxemia improving. (13) COPD exacerbation Plan: COPD exacerbation is improving, patient started on IV Solu-Medrol. DC IV Solu-Medrol and start on oral prednisone 20 mg by mouth twice a day. I will start the patient also on Symbicort and incentive spirometry. 03/13 Much improved continue steroid taper as per pulmonology. Continue Symbicort and IS. DVT prophylaxis: Continue SCDs, avoid chemoprophylaxis due to recent hematuria. GI prophylaxis: Continue PPI. Discharge Planning Ok to transfer to the medical floor. Discussed w RN. Problem Qualifiers (1) Acute renal failure: (2) Hematuria: Qualified Codes: R31.0 - Gross hematuria (3) Sepsis: John Medina MD Mar 13, 2017 15:58
[2017-03-13] MEDS: PRAVASTATIN SOD 40 MG TAB PO SCH (20:23)
[2017-03-13] MEDS: DOXAZOSIN MESYLATE 4 MG TAB PO SCH (20:23)
[2017-03-14] VITALS (8 sets, daily range): BP systolic 142–178; BP diastolic 65–81; PULSE 61–85; RESP 18–22; TEMP 96.9–98.2; O2SAT 93–95
[2017-03-14] MEDS: CHLORHEXIDINE GLUCONATE 2 % 1 PACK (2 CLOTHS) TOP SCH (03:10)
[2017-03-14] MEDS: PIPERACIL-TAZO 2.25 GM PREMIX 50 ML IV SCH ×2 (03:10→10:19)
[2017-03-14] MEDS: LOW DOSE INSULIN NOVOLIN REGULAR SUPPLEMENTAL SCALE SQ SCH ×4 (04:45→20:36)
[2017-03-14 05:59] LABS: BICARBONATE 27.9 MEQ/L (21.0-32.0); POTASSIUM 3.4 MEQ/L (3.5-5.1)
[2017-03-14] MEDS: DOCUSATE SODIUM 50 MG/SENNA 8.6 MG TAB PO SCH ×2 (08:32→20:34)
[2017-03-14] MEDS: predniSONE 20 MG TAB PO SCH (08:32)
[2017-03-14] MEDS: PANTOPRAZOLE SODIUM 40 MG VIAL IV SCH (08:33)
[2017-03-14] MEDS: SODIUM CHLORIDE 0.9% FLUSH 10 ML FLUSH IV FLUSH PRN (08:35)
[2017-03-14] MEDS: INSULIN DETEMIR 100 UNITS/ML VIAL SQ SCH ×2 (08:40→20:36)
[2017-03-14] MEDS: BUDESONIDE-FORMOTEROL 160/4.5 MCG INHALER INH SCH ×2 (08:41→20:33)
[2017-03-14] MEDS: POTASSIUM CHLORIDE INJ 40 MEQ, SODIUM CHLORIDE 23.4% INJ 38.5 MEQ in WATER STERILE FOR ... IV SCH (08:41)
[2017-03-14] MEDS: TAMSULOSIN HCL 0.4 MG CAP PO SCH (08:47)
[2017-03-14] MEDS: RESP: ALBUTEROL 2.5 MG/IPRATROPIUM 0.5 MG NEB (SCH) INH ×3 (09:02→20:00)
[2017-03-14] MEDS ORDERED: POTASSIUM CHLORIDE 10 MEQ CONTROLLED RELEASE TAB PO ONE (09:30)
[2017-03-14] MEDS: INSULIN ASPART 1,000 UNITS/10 ML VIAL SQ SCH ×3 (10:34→16:35)
--- NOTE | 2017-03-14 12:57 | HHI.PR ---
Subjective Remarks Follow-up for confusion hypernatremia Mildly confused, allegedly around baseline per patient's family member. Patient has dementia. Sodium is stable. Still with blood-tinged urine to Mendoza catheter. No complaints. Afebrile Objective Vitals Vital Signs Date Time Temp Pulse Resp B/P (MAP) Pulse Ox O2 Delivery O2 Flow Rate FiO2 03/14/17 12:00 97.7 61 18 165/74 (104) 94 03/14/17 09:02 95 Nasal Cannula 3.00 03/14/17 08:32 Nasal Cannula 3.00 03/14/17 08:00 97.9 70 20 161/81 (107) 93 03/14/17 04:00 72 159/72 (101) 03/14/17 00:00 97.0 70 18 178/79 (112) 93 03/13/17 20:31 Nasal Cannula 3.00 03/13/17 20:12 94 Nasal Cannula 3.00 03/13/17 20:00 97.4 77 18 169/75 (106) 92 03/13/17 16:00 97.7 69 20 92 03/13/17 15:38 69 162/72 (102) 96 I/O 03/13/17 03/13/17 03/13/17 03/14/17 03/14/17 03/14/17 07:00 15:00 23:00 07:00 15:00 23:00 Intake Total 50 ml 620 ml 2315 ml Output Total 725 ml 850 ml 750 ml Balance -675 ml -230 ml 1565 ml Intake Oral 620 ml IV Total 50 ml 2315 ml Output Urine Total 725 ml 850 ml 750 ml # Bowel Movements 2 Result Diagram: 03/13/17 0509 03/14/17 0435 Objective Remarks Not in distress on nasal canula Regular rate and rhythm Clear breath sounds Abdomen, soft, nontender, Mendoza catheter with hematuria. No edema Alert, awake, oriented 2. . Procedures Hemodialysis A/P Problem List: (1) Acute renal failure ICD Code: N17.9 - Acute kidney failure, unspecified Status: Acute (2) Hyperkalemia ICD Code: E87.5 - Hyperkalemia Status: Resolved (3) Hypoglycemia ICD Code: E16.2 - Hypoglycemia, unspecified Status: Resolved (4) Metabolic acidosis ICD Code: E87.2 - Acidosis Status: Acute (5) Encephalopathy ICD Code: G93.40 - Encephalopathy, unspecified (6) Acute hypoxemic respiratory failure ICD Code: J96.01 - Acute respiratory failure with hypoxia Status: Resolved (7) Lactic acidosis ICD Code: E87.2 - Acidosis Status: Acute (8) Leukocytosis ICD Code: D72.829 - Elevated white blood cell count, unspecified (9) Hypernatremia ICD Code: E87.0 - Hyperosmolality and hypernatremia Status: Acute (10) Multiple sclerosis ICD Code: G35 - Multiple sclerosis (11) Hematuria ICD Code: R31.9 - Hematuria, unspecified Status: Resolved (12) Sepsis ICD Code: A41.9 - Sepsis, unspecified organism Status: Acute (13) COPD exacerbation ICD Code: J44.1 - Chronic obstructive pulmonary disease with (acute) exacerbation Assessment and Plan This is a 72-year-old male admitted for renal failure secondary to possible obstruction Acute renal failure Plan: Patient presented with an elevated creatinine of 10.1 and required a Vas- Cath to be placed to start hemodialysis. Status post a few days on dialysis, creatinine improving. - Nephrology and urology following. Creatinine still trending down, will need outpatient urodynamic studies and cystoscopy, Flomax. We'll try to remove Mendoza catheter into bladder training. Otherwise, reinsert Mendoza catheter and discharged with Mendoza catheter. Hypernatremia-continue Protonix fluids, increase rate. Recheck BMP tomorrow. Hyperglycemia having continue sliding scale insulin Toxic metabolic encephalopathy-improved, secondary to hypoglycemia. Resolved, likely at baseline at this point. Acute hypoxemic respiratory failure secondary to COPD exacerbation and pneumonia -continue oxygen supplementation., Continue her prednisone, taper. Lactic acidosis-resolved Multiple sclerosis-continue to monitor Sepsis-blood culture negative, urine culture negative, chest x-ray showed bilateral infiltrates, likely secondary to pneumonia, on Zosyn, switch to Augmentin. Leukocytosis improving. DVT prophylaxis: Continue SCDs, avoid chemoprophylaxis due to recent hematuria. GI prophylaxis: Continue PPI. Discharge Planning Continue therapy, might need rehabilitation. Problem Qualifiers (1) Acute renal failure: (2) Hematuria: Qualified Codes: R31.0 - Gross hematuria (3) Sepsis: Kia Perkins MD Mar 14, 2017 12:56
[2017-03-14] MEDS ORDERED: POTASSIUM CHLORIDE 25 MEQ EFFERVESCENT TAB PO ONE (13:00)
--- NOTE | 2017-03-14 13:36 | HHI.NPPN ---
Subjective General Problems: Edema Renal Problems: Uremia Renal Failure: Acute Interval History Renal function improving. He is restrained (upper extremities) as he continually pulls at his lines and tubing. Sodium remains elevated, reporting thirst. (Nayeli Serrano) Review of Systems General General Remarks thirst (Nayeli Serrano) Objective Data Data Vital Signs Date Time Temp Pulse Resp B/P (MAP) Pulse Ox O2 Delivery O2 Flow Rate FiO2 03/14/17 12:00 97.7 61 18 165/74 (104) 94 03/14/17 09:02 95 Nasal Cannula 3.00 03/14/17 08:32 Nasal Cannula 3.00 03/14/17 08:00 97.9 70 20 161/81 (107) 93 03/14/17 04:00 72 159/72 (101) 03/14/17 00:00 97.0 70 18 178/79 (112) 93 03/13/17 20:31 Nasal Cannula 3.00 03/13/17 20:12 94 Nasal Cannula 3.00 03/13/17 20:00 97.4 77 18 169/75 (106) 92 03/13/17 16:00 97.7 69 20 92 03/13/17 15:38 69 162/72 (102) 96 (Nayeli Serrano) -: 03/13/17 0509 03/14/17 0435 Imaging Last 72 hours Impressions Chest X-Ray 03/13/17 0000 Signed Impressions: Service Date/Time: Monday, March 13, 2017 13:14 - CONCLUSION: Patchy bilateral intra-alveolar infiltrates. Jeremy Rutherford Jr., MD Tubes & Lines: Chan (Nayeli Serrano) Physical Exam General Appearance: Well Developed, Well Nourished, No Acute Distress, Comfortable, Obese (Nayeli Serrano) Throat Throat Exam: Oral Mucosa [place] & Moist (Nayeli Serrano) Pulmonary Resp Exam: No Distress, Rhonchi, Decreased Bases (Nayeli Serrano) Cardiology CV Exam: Normal Sinus Rhythm, Good Perfusion (Nayeli Serrano) Gastrointestinal/Abdomen GI Exam: Soft, Non-Tender, Bowel Sounds Present GI Remarks ascites, umbilical hernia (Nayeli Serrano) Genitourinary Remarks hematuria in chan (Nayeli Serrano) Musculoskeletal MS Exam: Joints Intact, Normal Tone (Nayeli Serrano) Integumentary Skin Exam: Warm, Dry (Nayeli Serrano) Extremeties Extremities Exam: Pedal Pulses Palpable, Trace Edema (Nayeli Serrano) Neurologic Neuro Exam: Alert, Awake, Oriented, Speech Clear, Moving All Extremities (Nayeli Serrano) Psychiatric Psych Exam: Appropriate Responses (Nayeli Serrano) VTE Prophylaxis Device: SCDs (Nayeli Serrano) Assessment/Plan Discussed Condition With: Patient, Spouse Assessment Summary: URI/Acute Renal Failure, Fluid/Volume Overload, Hypertension Electrolyte Assessment: Hyperkalemia Problem List: (1) Acute renal failure ICD Codes: N17.9 - Acute kidney failure, unspecified Status: Acute Plan: In a patient with normal renal function in October originally presented with urinary obstruction, chan placed, stated on flomax he required urgent dialysis on Sun/ he is in renal recovery, renal function continues to improve continue to follow creatinine, urine output, currently non oliguric d hypernatremic, on 07/26 NS, reduce rate to 50 cc/hr to prevent cell lysis I have asked the nurse to offer PO liquids every 2-3 hours to encourage oral intake potassium was replaced labs in AM avoid nephrotoxic agents likely will need to be dishcarged with chan catheter and urology follow up for cystoscopy and/or TURP (2) Hyperkalemia ICD Codes: E87.5 - Hyperkalemia Status: Resolved Plan: corrected, now hypokalemic due to poor oral intake follow BMP (3) Metabolic acidosis ICD Codes: E87.2 - Acidosis Status: Acute Plan: likely due to renal failure, also may be due to metformin use corrected, monitor (4) Hypoglycemia ICD Codes: E16.2 - Hypoglycemia, unspecified Status: Resolved Plan: continue to monitor glucose his A1c is 9 (5) Sepsis ICD Codes: A41.9 - Sepsis, unspecified organism Status: Acute Plan: clinically improving he has left lower lobe pneumonia antibiotics changed to augmentin; off vancomycin and zosyn (Nayeli Serrano) Plan patient was seen and examined. Agree with above assessment and plan. (Javi Maria MD) Problem Qualifiers (1) Acute renal failure: (2) Sepsis: Nayeli Serrano Mar 14, 2017 13:36 Javi Maria MD Mar 14, 2017 20:22
[2017-03-14] MEDS: SODIUM CHLORIDE 23.4% INJ 38.5 MEQ in WATER STERILE FOR INJ 1,000 ML IV SCH (15:35)
[2017-03-14] MEDS: DOXAZOSIN MESYLATE 4 MG TAB PO SCH (20:33)
[2017-03-14] MEDS: AMOXICILLIN/CLAVULANATE K 875 MG TAB PO SCH (20:33)
[2017-03-14] MEDS: PRAVASTATIN SOD 40 MG TAB PO SCH (20:34)
[2017-03-15] VITALS (9 sets, daily range): BP systolic 143–185; BP diastolic 64–81; PULSE 66–88; RESP 14–22; TEMP 96.4–97.9; O2SAT 92–97
[2017-03-15] MEDS: SODIUM CHLORIDE 23.4% INJ 38.5 MEQ in WATER STERILE FOR INJ 1,000 ML IV SCH ×4 (01:02→23:46)
[2017-03-15] MEDS: CHLORHEXIDINE GLUCONATE 2 % 1 PACK (2 CLOTHS) TOP SCH (04:00)
[2017-03-15] MEDS: LOW DOSE INSULIN NOVOLIN REGULAR SUPPLEMENTAL SCALE SQ SCH ×4 (05:44→20:05)
[2017-03-15] MEDS: RESP: ALBUTEROL 2.5 MG/IPRATROPIUM 0.5 MG NEB (SCH) INH ×4 (08:00→20:16)
[2017-03-15 08:06] LABS: BICARBONATE 26.5 MEQ/L (21.0-32.0); MAGNESIUM 1.9 MG/DL (1.5-2.5)
[2017-03-15] MEDS: BUDESONIDE-FORMOTEROL 160/4.5 MCG INHALER INH SCH ×2 (08:18→20:05)
[2017-03-15] MEDS: predniSONE 20 MG TAB PO SCH (08:19)
[2017-03-15] MEDS: PANTOPRAZOLE SODIUM 40 MG VIAL IV SCH (08:19)
[2017-03-15] MEDS: DOCUSATE SODIUM 50 MG/SENNA 8.6 MG TAB PO SCH ×2 (08:19→20:05)
[2017-03-15] MEDS: AMOXICILLIN/CLAVULANATE K 875 MG TAB PO SCH ×2 (08:19→20:05)
[2017-03-15] MEDS: INSULIN DETEMIR 100 UNITS/ML VIAL SQ SCH (08:19)
[2017-03-15] MEDS: TAMSULOSIN HCL 0.4 MG CAP PO SCH (08:19)
[2017-03-15] MEDS: INSULIN ASPART 1,000 UNITS/10 ML VIAL SQ SCH ×3 (08:20→17:59)
[2017-03-15] MEDS: SODIUM CHLORIDE 0.9% FLUSH 5 ML FLUSH IV FLUSH PRN (08:30)
--- NOTE | 2017-03-15 10:01 | HHI.PR ---
Subjective Remarks Follow up hypernatremia. Na this AM 152, trending down. Still mildly confused but he is at baseline. Mendoza catheter is draining yellow urine, no longer blood tinged. Denies any chest pain, or sob. According to the nurse he is eating ok just no pureed meats, but will drink Glucerna shacks. He has been out of restraints since 3:30 yesterday, SNF will take him back if he is out of restraints for 24 hours. Objective Vitals Vital Signs Date Time Temp Pulse Resp B/P (MAP) Pulse Ox O2 Delivery O2 Flow Rate FiO2 03/15/17 08:00 97.2 69 14 176/81 (112) 94 03/15/17 04:00 96.6 67 20 158/72 (100) 94 03/15/17 00:00 97.0 71 22 185/80 (115) 95 03/14/17 20:34 Nasal Cannula 3.00 03/14/17 20:02 66 03/14/17 20:00 96.9 85 22 142/65 (90) 95 03/14/17 15:41 98.2 76 20 153/74 (100) 95 03/14/17 12:00 97.7 61 18 165/74 (104) 94 I/O 03/14/17 03/14/17 03/14/17 03/15/17 03/15/17 03/15/17 07:00 15:00 23:00 07:00 15:00 23:00 Intake Total 2315 ml 50 ml 1685 ml 120 ml Output Total 750 ml 600 ml 800 ml Balance 1565 ml 50 ml 1085 ml -680 ml Intake Oral 720 ml 120 ml IV Total 2315 ml 50 ml 965 ml Output Urine Total 750 ml 600 ml 800 ml # Bowel Movements 1 1 Result Diagram: 03/13/17 0509 03/15/17 0652 Other Results GENERAL: Confused at baseline, laying in bed no acute distress. SKIN: Warm and dry. Podis boots in place EYES: Pupils equal and round. ENT: No nasal bleeding or discharge. Mucous membranes pink and moist. NECK: Trachea midline. No JVD. CARDIOVASCULAR: Regular rate and rhythm. RESPIRATORY: No accessory muscle use. Clear to auscultation. Breath sounds equal bilaterally. GASTROINTESTINAL: Abdomen soft, non-tender, nondistended. BSx4 : Mendoza in place draining yellow urine, no hematuria MUSCULOSKELETAL: Extremities without clubbing, cyanosis, or edema. No obvious deformities. NEUROLOGICAL: Awake and Confused. Procedures Hemodialysis Medications and IVs Current Medications Medications (Trade) Dose Ordered Sig/Juan Route Start Time Stop Time Status Last Admin (NS Flush) 2 ml UNSCH PRN IV FLUSH 03/06/17 14:00 03/15/17 08:30 (Protonix Inj) 40 mg DAILY IV 03/06/17 18:00 03/15/17 08:19 (Duoneb Neb) 1 ampule Q2HR NEB PRN INH 03/06/17 17:00 Miscellaneous Information 1 Q361D XX 03/06/17 17:00 03/06/17 17:00 (Chlorhexidine 2% Cloth) Taper DAILY@04 TOP 03/07/17 04:00 03/03/18 03:59 03/12/17 00:44 (Chlorhexidine 2% Cloth) 3 pack UNSCH PRN TOP 03/06/17 17:00 (Batsheva-Colace) 1 tab BID PO 03/06/17 21:00 03/15/17 08:19 (Milk Of Magnesia Liq) 30 ml Q12H PRN PO 03/06/17 17:00 (Senokot) 17.2 mg Q12H PRN PO 03/06/17 17:00 (Dulcolax Supp) 10 mg DAILY PRN RECTAL 03/06/17 17:00 (Lactulose Liq) 30 ml DAILY PRN PO 03/06/17 17:00 Pharmacy Profile Note 0 ml @ 0 mls/hr UNSCH OTHER 03/06/17 17:00 (Flomax) 0.4 mg DAILY PO 03/06/17 18:15 03/15/17 08:19 Sodium Chloride 1,000 ml @ 0 mls/hr Q0M PRN IV 03/07/17 12:37 03/08/17 10:38 (Heparin Inj) 8,000 units UNSCH PRN IVF 03/07/17 12:45 Sodium Chloride 1,000 ml @ 200 mls/hr Q5H PRN IV 03/07/17 12:37 Sodium Chloride 1,000 ml @ 0 mls/hr Q0M PRN IV 03/07/17 12:37 (Mannitol Inj) 12.5 gm UNSCH PRN IV 03/07/17 12:45 (Albumin 25% Inj) 25 gm UNSCH PRN IV 03/07/17 12:45 (NS Flush) 5 ml UNSCH PRN IV FLUSH 03/07/17 12:45 (Heparin Inj) UNSCH PRN .XX 03/07/17 12:45 03/08/17 10:37 (Gentamicin (Dialysis) Inj) 20 mg UNSCH PRN IV 03/07/17 12:45 03/08/17 10:37 (Zofran Inj) 4 mg UNSCH PRN IV 03/07/17 12:45 (Tylenol) 650 mg UNSCH PRN PO 03/07/17 12:45 (Benadryl) 25 mg UNSCH PRN PO 03/07/17 12:45 (Nitrostat Sl) 0.4 mg UNSCH PRN SL 03/07/17 12:45 (Catapres) 0.1 mg UNSCH PRN PO 03/07/17 12:45 03/12/17 08:53 (Gelfoam 12 Mm/7 Mm Top) 1 foam UNSCH PRN TOP 03/07/17 12:45 (D50w (Vial) Inj) 50 ml UNSCH PRN IV PUSH 03/09/17 10:30 (Glucagon Inj) 1 mg UNSCH PRN OTHER 03/09/17 10:30 (NovoLIN R SUPPLEMENTAL SCALE) 1 ACHS SLIDING SCALE SQ 03/09/17 11:00 03/13/17 16:00 (Tenormin) 50 mg DAILY PO 03/10/17 17:00 Future Hold 03/11/17 08:02 (Pravachol) 40 mg HS PO 03/10/17 21:00 03/14/17 20:34 (Cardura) 4 mg HS PO 03/12/17 21:00 03/14/17 20:33 (NovoLOG INJ) 7 units TIDPC SQ 03/12/17 13:30 03/14/17 10:34 (Levemir Inj) 15 units Q12HR SQ 03/12/17 21:00 03/14/17 08:40 (Apresoline Inj) 10 mg Q30M PRN IV PUSH 03/12/17 14:30 (Symbicort 160-4.5 Inh) 2 puff Q12HR INH 03/12/17 21:00 03/15/17 08:18 (Duoneb Neb) 1 ampule QID NEB INH 03/13/17 16:00 03/14/17 11:58 (Deltasone) 20 mg DAILY PO 03/14/17 09:00 03/18/17 07:00 03/15/17 08:19 (Augmentin) 875 mg Q12HR PO 03/14/17 21:00 03/15/17 08:19 Sodium Chloride 38.5 meq/Sterile [place] 1,009.625 ml @ 50 mls/hr [id number] IV 03/14/17 13:00 03/15/17 08:22 Urinary Catheter: Yes Assessment to: Continue Mendoza insert reason: Obstruction/Retention Vascular Central Line Catheter: No A/P Problem List: (1) Acute renal failure ICD Code: N17.9 - Acute kidney failure, unspecified Status: Acute (2) Hyperkalemia ICD Code: E87.5 - Hyperkalemia Status: Resolved (3) Hypoglycemia ICD Code: E16.2 - Hypoglycemia, unspecified Status: Resolved (4) Metabolic acidosis ICD Code: E87.2 - Acidosis Status: Acute (5) Encephalopathy ICD Code: G93.40 - Encephalopathy, unspecified (6) Acute hypoxemic respiratory failure ICD Code: J96.01 - Acute respiratory failure with hypoxia Status: Resolved (7) Lactic acidosis ICD Code: E87.2 - Acidosis Status: Acute (8) Leukocytosis ICD Code: D72.829 - Elevated white blood cell count, unspecified (9) Hypernatremia ICD Code: E87.0 - Hyperosmolality and hypernatremia Status: Acute (10) Multiple sclerosis ICD Code: G35 - Multiple sclerosis (11) Hematuria ICD Code: R31.9 - Hematuria, unspecified Status: Resolved (12) Sepsis ICD Code: A41.9 - Sepsis, unspecified organism Status: Acute (13) COPD exacerbation ICD Code: J44.1 - Chronic obstructive pulmonary disease with (acute) exacerbation Assessment and Plan This is a 72-year-old male admitted for renal failure secondary to possible obstruction Acute renal failure Plan: Patient presented with an elevated creatinine of 10.1 and required a Vas- Cath to be placed to start hemodialysis. Status post a few days on dialysis, creatinine improving. - Nephrology and urology following. Creatinine still trending down, will need outpatient urodynamic studies and cystoscopy. -Cont Flomax. -Will be discharged with Mendoza catheter per nephrology recommendations Hypernatremia-continue Protonix fluids, increase rate to 80ml/hr. Recheck BMP tomorrow. NA trending down today is 152 Hyperglycemia, currently controlled, 106 this AM -continue ACCU checks with sliding scale insulin -Hold long acting insulin due to eating habits Toxic metabolic encephalopathy-improved, secondary to hypoglycemia. Resolved, back to baseline Acute hypoxemic respiratory failure secondary to COPD exacerbation and pneumonia -continue oxygen supplementation., Continue her prednisone, taper now and at discharge Lactic acidosis-resolved Multiple sclerosis-continue to monitor Sepsis-blood culture negative, urine culture negative, chest x-ray showed bilateral infiltrates, likely secondary to pneumonia, on Zosyn, Cont Augmentin. Leukocytosis improving. CBC in AM. DVT prophylaxis: Continue SCDs, avoid chemoprophylaxis due to recent hematuria. GI prophylaxis: Continue PPI. Problem Qualifiers (1) Acute renal failure: (2) Hematuria: Qualified Codes: R31.0 - Gross hematuria (3) Sepsis: Connie Gutiérrez Mar 15, 2017 10:01
[2017-03-15] MEDS: PRAVASTATIN SOD 40 MG TAB PO SCH (20:05)
[2017-03-15] MEDS: DOXAZOSIN MESYLATE 4 MG TAB PO SCH (20:05)
--- NOTE | 2017-03-15 20:15 | HHI.NPPN ---
Subjective General Problems: Edema Renal Problems: Uremia Renal Failure: Acute Additional Remarks Patient is awake, confused, not in distress. Review of Systems General General Remarks thirst Objective Data Data 03/15/17 03/16/17 19:00 07:00 Intake Total 420 ml Balance 420 ml Intake Oral 270 ml IV Total 150 ml Vital Signs Date Time Temp Pulse Resp B/P (MAP) Pulse Ox O2 Delivery O2 Flow Rate FiO2 03/15/17 16:00 97.9 72 20 153/67 (95) 92 03/15/17 12:00 96.9 70 17 169/78 (108) 93 03/15/17 09:58 97 Nasal Cannula 2.00 03/15/17 08:18 Nasal Cannula 3.00 03/15/17 08:00 97.2 69 14 176/81 (112) 94 03/15/17 04:00 96.6 67 20 158/72 (100) 94 03/15/17 00:00 97.0 71 22 185/80 (115) 95 03/14/17 20:34 Nasal Cannula 3.00 -: 03/13/17 0509 03/15/17 0652 Tubes & Lines: Chan Physical Exam General Appearance: Well Developed, Well Nourished, No Acute Distress, Comfortable, Obese Throat Throat Exam: Oral Mucosa [place] & Moist Pulmonary Resp Exam: No Distress, Rhonchi, Decreased Bases Cardiology CV Exam: Normal Sinus Rhythm, Good Perfusion Gastrointestinal/Abdomen GI Exam: Soft, Non-Tender, Bowel Sounds Present Musculoskeletal MS Exam: Joints Intact, Normal Tone Integumentary Skin Exam: Warm, Dry Extremeties Extremities Exam: Trace Edema Neurologic Neuro Exam: Alert, Awake, Oriented, Speech Clear, Moving All Extremities Psychiatric Psych Exam: Appropriate Responses VTE Prophylaxis Device: SCDs Assessment/Plan Discussed Condition With: Patient, Spouse Assessment Summary: URI/Acute Renal Failure, Fluid/Volume Overload, Hypertension Electrolyte Assessment: Hyperkalemia Problem List: (1) Acute renal failure ICD Codes: N17.9 - Acute kidney failure, unspecified Status: Acute Plan: In a patient with normal renal function in October originally presented with urinary obstruction, chan placed, stated on flomax he required urgent dialysis on Sun/ he is in renal recovery, renal function continues to improve continue to follow creatinine, urine output, currently non oliguric d hypernatremic, on 1/4 NS, reduce rate to 50 cc/hr to prevent cell lysis I have asked the nurse to offer PO liquids every 2-3 hours to encourage oral intake potassium was replaced labs in AM avoid nephrotoxic agents likely will need to be discharged with Chan catheter and urology follow up for cystoscopy and/or TURP. Creatinine continue to improve. Na. is now 152, continue hypotonic fluid. Encourage oral intake. D/W his . (2) Hyperkalemia ICD Codes: E87.5 - Hyperkalemia Status: Resolved Plan: corrected, now hypokalemic due to poor oral intake follow BMP (3) Metabolic acidosis ICD Codes: E87.2 - Acidosis Status: Acute Plan: likely due to renal failure, also may be due to metformin use corrected, monitor (4) Hypoglycemia ICD Codes: E16.2 - Hypoglycemia, unspecified Status: Resolved Plan: continue to monitor glucose his A1c is 9 (5) Sepsis ICD Codes: A41.9 - Sepsis, unspecified organism Status: Acute Plan: clinically improving he has left lower lobe pneumonia antibiotics changed to augmentin; off vancomycin and zosyn Problem Qualifiers (1) Acute renal failure: (2) Sepsis: Federico Esqueda MD Mar 15, 2017 20:15
[2017-03-16] VITALS (10 sets, daily range): BP systolic 136–162; BP diastolic 65–89; PULSE 70–86; RESP 16–22; TEMP 96.2–98.3; O2SAT 92–98
[2017-03-16] MEDS: CHLORHEXIDINE GLUCONATE 2 % 1 PACK (2 CLOTHS) TOP SCH (03:53)
[2017-03-16] MEDS: LOW DOSE INSULIN NOVOLIN REGULAR SUPPLEMENTAL SCALE SQ SCH ×4 (05:42→20:23)
[2017-03-16 06:05] LABS: AUTOMATED NEUTROPHIL # 9.1 TH/MM3 (1.8-7.7); BASOPHIL % 0.2 % (0.0-2.0); EOSINOPHIL # 0.4 TH/MM3 (0-0.4); EOSINOPHIL % 3.1 % (0.0-4.0); HEMATOCRIT 24.1 % (39.0-51.0); HEMO FLAGS DIFF FINAL; LYMPHOCYTE # 1.4 TH/MM3 (1.0-4.8); MEAN CELL VOLUME 90.2 FL (80.0-100.0); MEAN CORPUSCULAR HEMOGLOBIN 29.9 PG (27.0-34.0); MEAN CORPUSCULAR HGB CONC 33.2 % (32.0-36.0); MONO % 5.9 % (0.0-8.0); NEUT % 78.8 % (16.0-70.0); PLATELET COUNT 184 TH/MM3 (150-450); RED BLOOD COUNT 2.67 MIL/MM3 (4.50-5.90); RED CELL DISTRIBUTION WIDTH 12.5 % (11.6-17.2); WHITE BLOOD COUNT 11.6 TH/MM3 (4.0-11.0)
[2017-03-16 06:32] LABS: POTASSIUM 3.4 MEQ/L (3.5-5.1)
[2017-03-16 07:00] LABS: CALCIUM-PROTEIN CORRECTED 8.5 MG/DL (8.5-10.1)
[2017-03-16] MEDS: predniSONE 20 MG TAB PO SCH (08:12)
[2017-03-16] MEDS: PANTOPRAZOLE SODIUM 40 MG VIAL IV SCH ×2 (08:12→08:17)
[2017-03-16] MEDS: AMOXICILLIN/CLAVULANATE K 875 MG TAB PO SCH ×2 (08:12→21:56)
[2017-03-16] MEDS: BUDESONIDE-FORMOTEROL 160/4.5 MCG INHALER INH SCH ×2 (08:12→21:56)
[2017-03-16] MEDS: DOCUSATE SODIUM 50 MG/SENNA 8.6 MG TAB PO SCH ×2 (08:12→21:56)
[2017-03-16] MEDS: TAMSULOSIN HCL 0.4 MG CAP PO SCH (08:12)
[2017-03-16] MEDS: RESP: ALBUTEROL 2.5 MG/IPRATROPIUM 0.5 MG NEB (SCH) INH ×5 (08:36→20:40)
[2017-03-16] MEDS: INSULIN ASPART 1,000 UNITS/10 ML VIAL SQ SCH ×3 (09:58→18:32)
[2017-03-16] MEDS: SODIUM CHLORIDE 23.4% INJ 38.5 MEQ in WATER STERILE FOR INJ 1,000 ML IV SCH ×2 (12:24→22:52)
--- NOTE | 2017-03-16 14:14 | HHI.PR ---
Subjective Remarks Follow up renal failure, hypernatremia. Patient has no complaints at this time. Denies pain, dyspnea, nausea, vomiting. Objective Vitals Vital Signs Date Time Temp Pulse Resp B/P (MAP) Pulse Ox O2 Delivery O2 Flow Rate FiO2 03/16/17 13:00 96.8 76 20 149/67 (94) 97 03/16/17 11:41 97.2 78 20 148/67 (94) 93 03/16/17 08:36 97 Nasal Cannula 2.00 03/16/17 08:10 Nasal Cannula 3.00 03/16/17 08:00 97.8 77 18 145/65 (91) 92 03/16/17 08:00 96.5 79 18 136/89 (105) 96 03/16/17 04:00 96.5 81 22 162/68 (99) 93 03/16/17 00:00 96.2 70 22 157/67 (97) 97 03/15/17 20:18 94 Nasal Cannula 2.00 03/15/17 20:05 Nasal Cannula 3.00 03/15/17 20:01 66 03/15/17 20:00 96.4 88 22 143/64 (90) 94 03/15/17 16:00 97.9 72 20 153/67 (95) 92 I/O 03/15/17 03/15/17 03/15/17 03/16/17 03/16/17 03/16/17 07:00 15:00 23:00 07:00 15:00 23:00 Intake Total 120 ml 660 ml 1299.625 ml Output Total 800 ml 350 ml 600 ml Balance -680 ml 310 ml 699.625 ml Intake Oral 120 ml 510 ml 240 ml IV Total 150 ml 1059.625 ml Output Urine Total 800 ml 350 ml 600 ml # Bowel Movements 1 0 1 Result Diagram: 03/16/17 0541 03/16/17 0541 Imaging Last Impressions Chest X-Ray 03/13/17 0000 Signed Impressions: Service Date/Time: Monday, March 13, 2017 13:14 - CONCLUSION: Patchy bilateral intra-alveolar infiltrates. Jeremy Rutherford Jr., MD Head CT 03/06/17 1352 Signed Impressions: Service Date/Time: Monday, March 06, 2017 15:25 - CONCLUSION: 1. No acute intracranial abnormality. 2. Atrophy and chronic small vessel ischemic change. Jeremy Rutherford Jr., MD Abdomen/Pelvis CT 03/06/17 0000 Signed Impressions: Service Date/Time: Monday, March 06, 2017 15:29 - CONCLUSION: 1. There is extensive inflammatory change around the right ureteral pelvic junction. There is no significant hydronephrosis in the kidney. There is some inflammatory change around the right kidney as well. Examination would suggest either recent stone passage or possible UTI. If symptoms fail to improve post contrast imaging may be of benefit for further assessment. 2. Atherosclerotic plaquing the coronary arteries. 3. COPD changes in the lung bases. Elliott Salvador MD Objective Remarks General: Elderly male in no acute distress. Heart: Regular rate and rhythm. No murmur. Lungs: Clear to auscultation bilaterally. No wheezes, rales, or rhonchi. Breathing is nonlabored. Abdomen: Soft, nontender, nondistended. Extremities: No lower extremity edema. Psych: Alert and oriented. Procedures 03/07/17 Right IJ VasCath placement Urinary Catheter: Yes Assessment to: Continue Mendoza insert reason: Obstruction/Retention Vascular Central Line Catheter: No A/P Problem List: (1) Acute renal failure ICD Code: N17.9 - Acute kidney failure, unspecified Status: Acute (2) Hyperkalemia ICD Code: E87.5 - Hyperkalemia Status: Resolved (3) Hypoglycemia ICD Code: E16.2 - Hypoglycemia, unspecified Status: Resolved (4) Metabolic acidosis ICD Code: E87.2 - Acidosis Status: Acute (5) Encephalopathy ICD Code: G93.40 - Encephalopathy, unspecified (6) Acute hypoxemic respiratory failure ICD Code: J96.01 - Acute respiratory failure with hypoxia Status: Resolved (7) Lactic acidosis ICD Code: E87.2 - Acidosis Status: Acute (8) Leukocytosis ICD Code: D72.829 - Elevated white blood cell count, unspecified (9) Hypernatremia ICD Code: E87.0 - Hyperosmolality and hypernatremia Status: Acute (10) Multiple sclerosis ICD Code: G35 - Multiple sclerosis (11) Hematuria ICD Code: R31.9 - Hematuria, unspecified Status: Resolved (12) Sepsis ICD Code: A41.9 - Sepsis, unspecified organism Status: Acute (13) COPD exacerbation ICD Code: J44.1 - Chronic obstructive pulmonary disease with (acute) exacerbation Assessment and Plan 1. Acute renal failure: Improving. Appreciate nephrology recommendations. Continue IV fluids. Mendoza catheter in place. No more gross hematuria. Continue Flomax. 2. Hypernatremia: Sodium now within normal limits. Continue IV fluids. Monitor labs. Appreciate nephrology recommendations. 3. Hyperglycemia: Controlled. Monitor Accu-checks and cover with sliding scale insulin. 4. Toxic metabolic encephalopathy: Resolved. Secondary to hypoglycemia. 5. Lactic acidosis: Resolved. 6. Multiple sclerosis: Chronic. 7. Sepsis: Source apparently pneumonia. CXR with bilateral infiltrates. Blood culture is negative, urine culture is negative. Continue antibiotics. Leukocytosis is improving. 8. GI prophylaxis: PPI. 9. DVT prophylaxis: SCDs. No chemical prophylaxis due to hematuria. Problem Qualifiers (1) Acute renal failure: (2) Hematuria: Qualified Codes: R31.0 - Gross hematuria (3) Sepsis: Jonathan Riley MD Mar 16, 2017 14:14
[2017-03-16] MEDS: PANTOPRAZOLE SOD 40 MG DELAYED RELEASE TAB PO SCH (16:31)
--- NOTE | 2017-03-16 19:38 | HHI.NPPN ---
Subjective General Problems: Edema Renal Problems: Uremia Renal Failure: Acute Additional Remarks Patient is awake, confused, not in distress. Review of Systems General General Remarks thirst Objective Data Data 03/16/17 03/17/17 19:00 07:00 Intake Total 840 ml Output Total 1050 ml Balance -210 ml Intake Oral 720 ml IV Total 120 ml Output Urine Total 1050 ml # Bowel Movements 1 Vital Signs Date Time Temp Pulse Resp B/P (MAP) Pulse Ox O2 Delivery O2 Flow Rate FiO2 03/16/17 16:10 98 Nasal Cannula 1.00 03/16/17 16:00 97.1 86 16 142/66 (91) 92 03/16/17 13:00 96.8 76 20 149/67 (94) 97 03/16/17 11:41 97.2 78 20 148/67 (94) 93 03/16/17 08:36 97 Nasal Cannula 2.00 03/16/17 08:10 Nasal Cannula 3.00 03/16/17 08:00 97.8 77 18 145/65 (91) 92 03/16/17 08:00 96.5 79 18 136/89 (105) 96 03/16/17 04:00 96.5 81 22 162/68 (99) 93 03/16/17 00:00 96.2 70 22 157/67 (97) 97 03/15/17 20:18 94 Nasal Cannula 2.00 03/15/17 20:05 Nasal Cannula 3.00 03/15/17 20:01 66 03/15/17 20:00 96.4 88 22 143/64 (90) 94 -: 03/16/17 0541 03/16/17 0541 Tubes & Lines: Chan Physical Exam General Appearance: Well Developed, Well Nourished, No Acute Distress, Comfortable, Obese Throat Throat Exam: Oral Mucosa [place] & Moist Pulmonary Resp Exam: No Distress, Rhonchi, Decreased Bases Cardiology CV Exam: Normal Sinus Rhythm, Good Perfusion Gastrointestinal/Abdomen GI Exam: Soft, Non-Tender, Bowel Sounds Present Musculoskeletal MS Exam: Joints Intact, Normal Tone Integumentary Skin Exam: Warm, Dry Extremeties Extremities Exam: Trace Edema Neurologic Neuro Exam: Alert, Awake, Oriented, Speech Clear, Moving All Extremities Psychiatric Psych Exam: Appropriate Responses VTE Prophylaxis Device: SCDs Assessment/Plan Discussed Condition With: Patient, Spouse Assessment Summary: URI/Acute Renal Failure, Fluid/Volume Overload, Hypertension Electrolyte Assessment: Hyperkalemia Problem List: (1) Acute renal failure ICD Codes: N17.9 - Acute kidney failure, unspecified Status: Acute Plan: In a patient with normal renal function in October originally presented with urinary obstruction, chan placed, stated on flomax he required urgent dialysis on Sun/ he is in renal recovery, renal function continues to improve continue to follow creatinine, urine output, currently non oliguric d hypernatremic, on 07/26 NS, reduce rate to 50 cc/hr to prevent cell lysis I have asked the nurse to offer PO liquids every 2-3 hours to encourage oral intake potassium was replaced labs in AM avoid nephrotoxic agents likely will need to be discharged with Chan catheter and urology follow up for cystoscopy and/or TURP. Creatinine continue to improve. Na. is now 152, continue hypotonic fluid. Encourage oral intake. D/W his . (2) Hyperkalemia ICD Codes: E87.5 - Hyperkalemia Status: Resolved Plan: corrected, now hypokalemic due to poor oral intake follow BMP (3) Metabolic acidosis ICD Codes: E87.2 - Acidosis Status: Acute Plan: likely due to renal failure, also may be due to metformin use corrected, monitor (4) Hypoglycemia ICD Codes: E16.2 - Hypoglycemia, unspecified Status: Resolved Plan: continue to monitor glucose his A1c is 9 (5) Sepsis ICD Codes: A41.9 - Sepsis, unspecified organism Status: Acute Plan: clinically improving he has left lower lobe pneumonia antibiotics changed to augmentin; off vancomycin and zosyn Problem Qualifiers (1) Acute renal failure: (2) Sepsis: Federico Esqueda MD Mar 16, 2017 19:38
[2017-03-16] MEDS: PRAVASTATIN SOD 40 MG TAB PO SCH (21:56)
[2017-03-16] MEDS: DOXAZOSIN MESYLATE 4 MG TAB PO SCH (21:56)
[2017-03-17 00:10] VITALS: BP 159/69; PULSE 75; RESP 19; TEMP 96; O2SAT 93
[2017-03-17] MEDS: CHLORHEXIDINE GLUCONATE 2 % 1 PACK (2 CLOTHS) TOP SCH (00:12)
[2017-03-17 05:21] LABS: BICARBONATE 24.2 MEQ/L (21.0-32.0); POTASSIUM 3.5 MEQ/L (3.5-5.1)
[2017-03-17] MEDS: LOW DOSE INSULIN NOVOLIN REGULAR SUPPLEMENTAL SCALE SQ SCH ×4 (05:31→21:00)
[2017-03-17 06:05] LABS: AUTOMATED NEUTROPHIL # 7.8 TH/MM3 (1.8-7.7); BASOPHIL # 0.1 TH/MM3 (0-0.2); BASOPHIL % 0.6 % (0.0-2.0); EOSINOPHIL # 0.2 TH/MM3 (0-0.4); HEMATOCRIT 25.1 % (39.0-51.0); LYMPH % 13.3 % (9.0-44.0); LYMPHOCYTE # 1.3 TH/MM3 (1.0-4.8); MEAN CORPUSCULAR HEMOGLOBIN 30.3 PG (27.0-34.0); MEAN CORPUSCULAR HGB CONC 33.3 % (32.0-36.0); MONO % 6.1 % (0.0-8.0); PLATELET COUNT 184 TH/MM3 (150-450); RED BLOOD COUNT 2.76 MIL/MM3 (4.50-5.90); RED CELL DISTRIBUTION WIDTH 12.9 % (11.6-17.2)
[2017-03-17 06:29] LABS: HEMO FLAGS AUTO DIFF
[2017-03-17 08:00] VITALS: BP 143/75; PULSE 84; RESP 17; TEMP 96.1; O2SAT 93
[2017-03-17] MEDS: RESP: ALBUTEROL 2.5 MG/IPRATROPIUM 0.5 MG NEB (SCH) INH (08:00)
[2017-03-17] MEDS: predniSONE 20 MG TAB PO SCH (08:46)
[2017-03-17] MEDS: AMOXICILLIN/CLAVULANATE K 875 MG TAB PO SCH ×2 (08:46→22:18)
[2017-03-17] MEDS: DOCUSATE SODIUM 50 MG/SENNA 8.6 MG TAB PO SCH ×2 (08:46→22:18)
[2017-03-17] MEDS: TAMSULOSIN HCL 0.4 MG CAP PO SCH (08:46)
[2017-03-17] MEDS: PANTOPRAZOLE SOD 40 MG DELAYED RELEASE TAB PO SCH (08:46)
[2017-03-17] MEDS: BUDESONIDE-FORMOTEROL 160/4.5 MCG INHALER INH SCH ×2 (08:50→22:22)
[2017-03-17] MEDS: INSULIN ASPART 1,000 UNITS/10 ML VIAL SQ SCH ×3 (09:30→18:30)
[2017-03-17 09:50] LABS: SCAN/DIFF AUTO DIFF CONFIRMED
[2017-03-17 12:00] VITALS: BP 138/78; PULSE 101; PULSE 75; RESP 17; TEMP 98.3; O2SAT 95
--- NOTE | 2017-03-17 13:16 | HHI.PR ---
Subjective Remarks Follow up acute renal failure, hypernatremia. Patient no longer requiring restraints. No events reported overnight. He denies pain. Objective Vitals Vital Signs Date Time Temp Pulse Resp B/P (MAP) Pulse Ox O2 Delivery O2 Flow Rate FiO2 03/17/17 08:50 93 Nasal Cannula 3.00 03/17/17 08:00 96.1 84 17 143/75 (97) 93 03/17/17 00:10 96.0 75 19 159/69 (99) 93 03/16/17 20:40 98 Nasal Cannula 2.00 03/16/17 20:00 98.3 81 18 148/65 (92) 93 03/16/17 20:00 Nasal Cannula 3.00 03/16/17 16:10 98 Nasal Cannula 1.00 03/16/17 16:00 97.1 86 16 142/66 (91) 92 I/O 03/16/17 03/16/17 03/16/17 03/17/17 03/17/17 03/17/17 07:00 15:00 23:00 07:00 15:00 23:00 Intake Total 1299.625 ml 480 ml 600 ml 0 ml Output Total 600 ml 750 ml 900 ml Balance 699.625 ml -270 ml -300 ml 0 ml Intake Oral 240 ml 360 ml 600 ml IV Total 1059.625 ml 120 ml 0 ml Output Urine Total 600 ml 750 ml 900 ml # Bowel Movements 1 1 0 1 Result Diagram: 03/17/17 0433 03/17/17 0433 Imaging Last Impressions Chest X-Ray 03/13/17 0000 Signed Impressions: Service Date/Time: Monday, March 13, 2017 13:14 - CONCLUSION: Patchy bilateral intra-alveolar infiltrates. Jeremy Rutherford Jr., MD Head CT 03/06/17 1352 Signed Impressions: Service Date/Time: Monday, March 06, 2017 15:25 - CONCLUSION: 1. No acute intracranial abnormality. 2. Atrophy and chronic small vessel ischemic change. Jeremy Rutherford Jr., MD Abdomen/Pelvis CT 03/06/17 0000 Signed Impressions: Service Date/Time: Monday, March 06, 2017 15:29 - CONCLUSION: 1. There is extensive inflammatory change around the right ureteral pelvic junction. There is no significant hydronephrosis in the kidney. There is some inflammatory change around the right kidney as well. Examination would suggest either recent stone passage or possible UTI. If symptoms fail to improve post contrast imaging may be of benefit for further assessment. 2. Atherosclerotic plaquing the coronary arteries. 3. COPD changes in the lung bases. Elliott Salvador MD Objective Remarks General: Elderly male in no acute distress. Heart: Regular rate and rhythm. No murmur. Lungs: Clear to auscultation bilaterally. No wheezes, rales, or rhonchi. Breathing is nonlabored. Abdomen: Soft, nontender, nondistended. Extremities: No lower extremity edema. SCDs. Psych: Sleeping, but awakens easily. Procedures 03/07/17 Right IJ VasCath placement Urinary Catheter: Yes Assessment to: Continue Mendoza insert reason: Obstruction/Retention Vascular Central Line Catheter: No A/P Problem List: (1) Acute renal failure ICD Code: N17.9 - Acute kidney failure, unspecified Status: Acute (2) Hyperkalemia ICD Code: E87.5 - Hyperkalemia Status: Resolved (3) Hypoglycemia ICD Code: E16.2 - Hypoglycemia, unspecified Status: Resolved (4) Metabolic acidosis ICD Code: E87.2 - Acidosis Status: Acute (5) Encephalopathy ICD Code: G93.40 - Encephalopathy, unspecified (6) Acute hypoxemic respiratory failure ICD Code: J96.01 - Acute respiratory failure with hypoxia Status: Resolved (7) Lactic acidosis ICD Code: E87.2 - Acidosis Status: Acute (8) Leukocytosis ICD Code: D72.829 - Elevated white blood cell count, unspecified (9) Hypernatremia ICD Code: E87.0 - Hyperosmolality and hypernatremia Status: Acute (10) Multiple sclerosis ICD Code: G35 - Multiple sclerosis (11) Hematuria ICD Code: R31.9 - Hematuria, unspecified Status: Resolved (12) Sepsis ICD Code: A41.9 - Sepsis, unspecified organism Status: Acute (13) COPD exacerbation ICD Code: J44.1 - Chronic obstructive pulmonary disease with (acute) exacerbation Assessment and Plan 1. Acute renal failure: Improving. Appreciate nephrology recommendations. Continue IV fluids. Mendoza catheter in place. No more gross hematuria. Continue Flomax. Plan for discharge with Mendoza in place. 2. Hypernatremia: Sodium now within normal limits. Appreciate nephrology recommendations. 3. Hyperglycemia: Controlled. Monitor Accu-checks and cover with sliding scale insulin. 4. Toxic metabolic encephalopathy: Resolved. Secondary to hypoglycemia. 5. Lactic acidosis: Resolved. 6. Multiple sclerosis: Chronic. 7. Sepsis: Source apparently pneumonia. CXR with bilateral infiltrates. Blood culture is negative, urine culture is negative. Continue antibiotics. Leukocytosis resolved. 8. GI prophylaxis: PPI. 9. DVT prophylaxis: SCDs. No chemical prophylaxis due to hematuria. Discharge Planning Plan for discharge to SNF soon, when cleared by nephrology. Problem Qualifiers (1) Acute renal failure: (2) Hematuria: Qualified Codes: R31.0 - Gross hematuria (3) Sepsis: Jonathan Riley MD Mar 17, 2017 13:16
[2017-03-17] MEDS: SODIUM CHLORIDE 23.4% INJ 38.5 MEQ in WATER STERILE FOR INJ 1,000 ML IV SCH (13:40)
--- NOTE | 2017-03-17 14:39 | HHI.NPPN ---
Subjective General Problems: Edema Renal Problems: Uremia Renal Failure: Acute Additional Remarks Patient is awake, confused, not in distress. Review of Systems General General Remarks thirst Objective Data Data Vital Signs Date Time Temp Pulse Resp B/P (MAP) Pulse Ox O2 Delivery O2 Flow Rate FiO2 03/17/17 12:00 98.3 101 17 138/78 (98) 95 03/17/17 08:50 93 Nasal Cannula 3.00 03/17/17 08:00 96.1 84 17 143/75 (97) 93 03/17/17 00:10 96.0 75 19 159/69 (99) 93 03/16/17 20:40 98 Nasal Cannula 2.00 03/16/17 20:00 98.3 81 18 148/65 (92) 93 03/16/17 20:00 Nasal Cannula 3.00 03/16/17 16:10 98 Nasal Cannula 1.00 03/16/17 16:00 97.1 86 16 142/66 (91) 92 -: 03/17/17 0433 03/17/17 0433 Tubes & Lines: Chan Physical Exam General Appearance: Well Developed, Well Nourished, No Acute Distress, Comfortable, Obese Throat Throat Exam: Oral Mucosa [place] & Moist Pulmonary Resp Exam: No Distress, Rhonchi, Decreased Bases Cardiology CV Exam: Normal Sinus Rhythm, Good Perfusion Gastrointestinal/Abdomen GI Exam: Soft, Non-Tender, Bowel Sounds Present Musculoskeletal MS Exam: Joints Intact, Normal Tone Integumentary Skin Exam: Warm, Dry Extremeties Extremities Exam: Trace Edema Neurologic Neuro Exam: Alert, Awake, Oriented, Speech Clear, Moving All Extremities Psychiatric Psych Exam: Appropriate Responses VTE Prophylaxis Device: SCDs Assessment/Plan Discussed Condition With: Patient, Spouse Assessment Summary: URI/Acute Renal Failure, Fluid/Volume Overload, Hypertension Electrolyte Assessment: Hyperkalemia Problem List: (1) Acute renal failure ICD Codes: N17.9 - Acute kidney failure, unspecified Status: Acute Plan: In a patient with normal renal function in October originally presented with urinary obstruction, chan placed, stated on flomax he required urgent dialysis on Sun/ he is in renal recovery, renal function continues to improve continue to follow creatinine, urine output, currently non oliguric d cr declined Na normal fu with Dr Cheryl Maria (2) Hyperkalemia ICD Codes: E87.5 - Hyperkalemia Status: Resolved Plan: corrected, now hypokalemic due to poor oral intake follow BMP (3) Metabolic acidosis ICD Codes: E87.2 - Acidosis Status: Acute Plan: likely due to renal failure, also may be due to metformin use corrected, monitor (4) Hypoglycemia ICD Codes: E16.2 - Hypoglycemia, unspecified Status: Resolved Plan: continue to monitor glucose his A1c is 9 (5) Sepsis ICD Codes: A41.9 - Sepsis, unspecified organism Status: Acute Plan: clinically improving he has left lower lobe pneumonia antibiotics changed to augmentin; off vancomycin and zosyn Problem Qualifiers (1) Acute renal failure: (2) Sepsis: Jennifer Page MD Mar 17, 2017 14:39
[2017-03-17 16:00] VITALS: BP 167/97; PULSE 72; RESP 17; TEMP 97.1; O2SAT 97
[2017-03-17 20:00] VITALS: BP 124/58; PULSE 79; RESP 20; TEMP 96.4; O2SAT 97
[2017-03-17] MEDS: DOXAZOSIN MESYLATE 4 MG TAB PO SCH (21:00)
[2017-03-17] MEDS: PRAVASTATIN SOD 40 MG TAB PO SCH (22:18)
[2017-03-18] VITALS (8 sets, daily range): BP systolic 126–164; BP diastolic 57–70; PULSE 68–91; RESP 16–20; TEMP 96–97.8; O2SAT 91–99
[2017-03-18] MEDS: SODIUM CHLORIDE 23.4% INJ 38.5 MEQ in WATER STERILE FOR INJ 1,000 ML IV SCH (02:18)
[2017-03-18] MEDS: CHLORHEXIDINE GLUCONATE 2 % 1 PACK (2 CLOTHS) TOP SCH ×2 (03:11→21:17)
[2017-03-18 06:10] LABS: AUTOMATED NEUTROPHIL # 7.2 TH/MM3 (1.8-7.7); BASOPHIL % 0.5 % (0.0-2.0); EOSINOPHIL # 0.2 TH/MM3 (0-0.4); EOSINOPHIL % 2.1 % (0.0-4.0); HEMATOCRIT 24.9 % (39.0-51.0); HEMO FLAGS DIFF FINAL; LYMPH % 14.8 % (9.0-44.0); LYMPHOCYTE # 1.4 TH/MM3 (1.0-4.8); MEAN CELL VOLUME 89.2 FL (80.0-100.0); MEAN CORPUSCULAR HEMOGLOBIN 30.1 PG (27.0-34.0); MEAN CORPUSCULAR HGB CONC 33.7 % (32.0-36.0); MONO % 7.4 % (0.0-8.0); NEUT % 75.2 % (16.0-70.0); PLATELET COUNT 178 TH/MM3 (150-450); RED CELL DISTRIBUTION WIDTH 12.9 % (11.6-17.2); WHITE BLOOD COUNT 9.6 TH/MM3 (4.0-11.0)
[2017-03-18] MEDS: LOW DOSE INSULIN NOVOLIN REGULAR SUPPLEMENTAL SCALE SQ SCH ×4 (07:00→21:00)
[2017-03-18 07:06] LABS: BICARBONATE 23.5 MEQ/L (21.0-32.0); POTASSIUM 3.7 MEQ/L (3.5-5.1)
[2017-03-18 07:37] LABS: CALCIUM-PROTEIN CORRECTED 7.9 MG/DL (8.5-10.1)
[2017-03-18] MEDS: AMOXICILLIN/CLAVULANATE K 875 MG TAB PO SCH ×2 (08:17→21:13)
[2017-03-18] MEDS: TAMSULOSIN HCL 0.4 MG CAP PO SCH (08:18)
[2017-03-18] MEDS: BUDESONIDE-FORMOTEROL 160/4.5 MCG INHALER INH SCH ×2 (08:18→21:12)
[2017-03-18] MEDS: PANTOPRAZOLE SOD 40 MG DELAYED RELEASE TAB PO SCH (08:18)
[2017-03-18] MEDS: DOCUSATE SODIUM 50 MG/SENNA 8.6 MG TAB PO SCH ×2 (08:18→21:00)
[2017-03-18] MEDS: INSULIN ASPART 1,000 UNITS/10 ML VIAL SQ SCH ×3 (09:30→18:36)
--- NOTE | 2017-03-18 12:54 | HHI.PR ---
Subjective Remarks Follow up renal failure, pneumonia. No complaints at this time. No dyspnea. Wants to get out of the hospital. Objective Vitals Vital Signs Date Time Temp Pulse Resp B/P (MAP) Pulse Ox O2 Delivery O2 Flow Rate FiO2 03/18/17 12:00 96.7 83 16 126/57 (80) 99 03/18/17 08:00 97.0 73 16 153/67 (95) 91 03/18/17 06:58 95 Nasal Cannula 3.00 03/18/17 00:00 96.0 68 20 164/70 (101) 95 03/17/17 20:00 96.4 79 20 124/58 (80) 97 03/17/17 20:00 Nasal Cannula 3.00 03/17/17 16:00 97.1 72 17 167/97 (120) 97 I/O 03/17/17 03/17/17 03/17/17 03/18/17 03/18/17 03/18/17 06:59 14:59 22:59 06:59 14:59 22:59 Intake Total 0 ml 640 ml 120 ml Output Total 2400 ml 600 ml Balance 0 ml -1760 ml -480 ml Intake Oral 640 ml 120 ml IV Total 0 ml Output Urine Total 2400 ml 600 ml # Bowel Movements 1 0 1 Result Diagram: 03/18/17 0600 03/18/17 0600 Imaging Last Impressions Chest X-Ray 03/13/17 0000 Signed Impressions: Service Date/Time: Monday, March 13, 2017 13:14 - CONCLUSION: Patchy bilateral intra-alveolar infiltrates. Jeremy Rutherford Jr., MD Head CT 03/06/17 1352 Signed Impressions: Service Date/Time: Monday, March 06, 2017 15:25 - CONCLUSION: 1. No acute intracranial abnormality. 2. Atrophy and chronic small vessel ischemic change. Jeremy Rutherford Jr., MD Abdomen/Pelvis CT 03/06/17 0000 Signed Impressions: Service Date/Time: Monday, March 06, 2017 15:29 - CONCLUSION: 1. There is extensive inflammatory change around the right ureteral pelvic junction. There is no significant hydronephrosis in the kidney. There is some inflammatory change around the right kidney as well. Examination would suggest either recent stone passage or possible UTI. If symptoms fail to improve post contrast imaging may be of benefit for further assessment. 2. Atherosclerotic plaquing the coronary arteries. 3. COPD changes in the lung bases. Elliott Salvador MD Objective Remarks General: Elderly male in no acute distress. Heart: Regular rate and rhythm. No murmur. Lungs: Clear to auscultation bilaterally. No wheezes, rales, or rhonchi. Breathing is nonlabored. Abdomen: Soft, nontender, nondistended. Extremities: No lower extremity edema. SCDs. Psych: Alert, answers questions appropriately. Procedures 03/07/17 Right IJ VasCath placement Urinary Catheter: Yes Assessment to: Continue Mendoza insert reason: Obstruction/Retention Vascular Central Line Catheter: No A/P Problem List: (1) Acute renal failure ICD Code: N17.9 - Acute kidney failure, unspecified Status: Acute (2) Hyperkalemia ICD Code: E87.5 - Hyperkalemia Status: Resolved (3) Hypoglycemia ICD Code: E16.2 - Hypoglycemia, unspecified Status: Resolved (4) Metabolic acidosis ICD Code: E87.2 - Acidosis Status: Acute (5) Encephalopathy ICD Code: G93.40 - Encephalopathy, unspecified (6) Acute hypoxemic respiratory failure ICD Code: J96.01 - Acute respiratory failure with hypoxia Status: Resolved (7) Lactic acidosis ICD Code: E87.2 - Acidosis Status: Acute (8) Leukocytosis ICD Code: D72.829 - Elevated white blood cell count, unspecified (9) Hypernatremia ICD Code: E87.0 - Hyperosmolality and hypernatremia Status: Acute (10) Multiple sclerosis ICD Code: G35 - Multiple sclerosis (11) Hematuria ICD Code: R31.9 - Hematuria, unspecified Status: Resolved (12) Sepsis ICD Code: A41.9 - Sepsis, unspecified organism Status: Acute (13) COPD exacerbation ICD Code: J44.1 - Chronic obstructive pulmonary disease with (acute) exacerbation Assessment and Plan 1. Acute renal failure: Improving. Appreciate nephrology recommendations. Continue IV fluids. Mendoza catheter in place. No more gross hematuria. Continue Flomax. Plan for discharge with Mendoza in place. 2. Hypernatremia: Sodium now within normal limits. Appreciate nephrology recommendations. 3. Hyperglycemia: Controlled. Monitor Accu-checks and cover with sliding scale insulin. 4. Toxic metabolic encephalopathy: Resolved. Secondary to hypoglycemia. 5. Lactic acidosis: Resolved. 6. Multiple sclerosis: Chronic. 7. Sepsis: Source is pneumonia. CXR with bilateral infiltrates. Blood and urine cultures are negative. Continue antibiotics. Leukocytosis resolved. 8. GI prophylaxis: PPI. 9. DVT prophylaxis: SCDs. No chemical prophylaxis due to hematuria. Discharge Planning Plan for discharge to SNF when cleared by nephrology. Problem Qualifiers (1) Acute renal failure: (2) Hematuria: Qualified Codes: R31.0 - Gross hematuria (3) Sepsis: Jonathan Riley MD Mar 18, 2017 12:54
--- NOTE | 2017-03-18 14:13 | HHI.NPPN ---
Subjective General Problems: Edema Renal Problems: Uremia Renal Failure: Acute Additional Remarks Patient is awake, not in distress. Review of Systems General General Remarks thirst Objective Data Data Vital Signs Date Time Temp Pulse Resp B/P (MAP) Pulse Ox O2 Delivery O2 Flow Rate FiO2 03/18/17 12:00 96.7 83 16 126/57 (80) 99 03/18/17 08:00 97.0 73 16 153/67 (95) 91 03/18/17 06:58 95 Nasal Cannula 3.00 03/18/17 00:00 96.0 68 20 164/70 (101) 95 03/17/17 20:00 96.4 79 20 124/58 (80) 97 03/17/17 20:00 Nasal Cannula 3.00 03/17/17 16:00 97.1 72 17 167/97 (120) 97 -: 03/18/17 0600 03/18/17 0600 Tubes & Lines: Chan Physical Exam General Appearance: Well Developed, Well Nourished, No Acute Distress, Comfortable, Obese Throat Throat Exam: Oral Mucosa [place] & Moist Pulmonary Resp Exam: No Distress, Rhonchi, Decreased Bases Cardiology CV Exam: Normal Sinus Rhythm, Good Perfusion Gastrointestinal/Abdomen GI Exam: Soft, Non-Tender, Bowel Sounds Present Musculoskeletal MS Exam: Joints Intact, Normal Tone Integumentary Skin Exam: Warm, Dry Extremeties Extremities Exam: Trace Edema Neurologic Neuro Exam: Alert, Awake, Oriented, Speech Clear, Moving All Extremities Psychiatric Psych Exam: Appropriate Responses VTE Prophylaxis Device: SCDs Assessment/Plan Discussed Condition With: Patient, Spouse Assessment Summary: URI/Acute Renal Failure, Fluid/Volume Overload, Hypertension Electrolyte Assessment: Hyperkalemia Problem List: (1) Acute renal failure ICD Codes: N17.9 - Acute kidney failure, unspecified Status: Acute Plan: In a patient with normal renal function in October originally presented with urinary obstruction, chan placed, stated on flomax he required urgent dialysis on Sun/ he is in renal recovery, renal function continues to improve continue to follow creatinine, urine output, currently non oliguric d cr declined fu with Dr Cheryl Maria/ Lexi need Chan catheter due to urine retention need BPH surgery (2) Hyperkalemia ICD Codes: E87.5 - Hyperkalemia Status: Resolved Plan: corrected, now hypokalemic due to poor oral intake follow BMP (3) Metabolic acidosis ICD Codes: E87.2 - Acidosis Status: Acute Plan: likely due to renal failure, also may be due to metformin use corrected, monitor (4) Hypoglycemia ICD Codes: E16.2 - Hypoglycemia, unspecified Status: Resolved Plan: continue to monitor glucose his A1c is 9 (5) Sepsis ICD Codes: A41.9 - Sepsis, unspecified organism Status: Acute Plan: clinically improving he has left lower lobe pneumonia antibiotics changed to augmentin; off vancomycin and zosyn Problem Qualifiers (1) Acute renal failure: (2) Sepsis: Jennifer Page MD Mar 18, 2017 14:13
[2017-03-18] MEDS: DOXAZOSIN MESYLATE 4 MG TAB PO SCH (21:00)
[2017-03-18] MEDS: PRAVASTATIN SOD 40 MG TAB PO SCH (21:00)
[2017-03-19] VITALS: BP 163/73; PULSE 76; RESP 20; TEMP 98.6; O2SAT 95
[2017-03-19 04:00] VITALS: BP 160/67; PULSE 106; RESP 19; TEMP 96.8; O2SAT 94
[2017-03-19] MEDS: LOW DOSE INSULIN NOVOLIN REGULAR SUPPLEMENTAL SCALE SQ SCH ×2 (04:39→11:00)
[2017-03-19 06:41] LABS: BICARBONATE 24.5 MEQ/L (21.0-32.0); POTASSIUM 3.3 MEQ/L (3.5-5.1)
[2017-03-19 08:00] VITALS: BP 144/64; PULSE 79; RESP 17; TEMP 98.2; O2SAT 92
[2017-03-19] MEDS ORDERED: POTASSIUM CHLORIDE 20 MEQ CONTROLLED RELEASE TAB PO ONE (08:30)
[2017-03-19 08:40] VITALS: O2SAT 93
[2017-03-19] MEDS: AMOXICILLIN/CLAVULANATE K 875 MG TAB PO SCH (08:47)
[2017-03-19] MEDS: DOCUSATE SODIUM 50 MG/SENNA 8.6 MG TAB PO SCH (08:47)
[2017-03-19] MEDS: TAMSULOSIN HCL 0.4 MG CAP PO SCH (08:47)
[2017-03-19] MEDS: PANTOPRAZOLE SOD 40 MG DELAYED RELEASE TAB PO SCH (08:47)
[2017-03-19] MEDS: BUDESONIDE-FORMOTEROL 160/4.5 MCG INHALER INH SCH (08:48)
[2017-03-19] MEDS: SODIUM CHLORIDE 0.9% FLUSH 10 ML FLUSH IV FLUSH PRN (08:48)
[2017-03-19] MEDS: INSULIN ASPART 1,000 UNITS/10 ML VIAL SQ SCH ×2 (08:54→13:30)
--- NOTE | 2017-03-19 10:35 | HHI.NPPN ---
Subjective General Problems: Edema Renal Problems: Uremia Renal Failure: Acute Interval History Sitting up in chair. Off restraints. Renal function is stable. (Nayeli Serrano) Objective Data Data Vital Signs Date Time Temp Pulse Resp B/P (MAP) Pulse Ox O2 Delivery O2 Flow Rate FiO2 03/19/17 08:40 93 03/19/17 08:00 98.2 79 17 144/64 (90) 92 03/19/17 04:00 96.8 106 19 160/67 (98) 94 03/19/17 00:00 98.6 76 20 163/73 (103) 95 03/18/17 22:16 93 03/18/17 20:00 97.8 78 19 127/60 (82) 96 03/18/17 19:10 72 03/18/17 16:00 96.0 91 16 126/57 (80) 91 03/18/17 12:00 96.7 83 16 126/57 (80) 99 (Nayeli Serrano) -: 03/18/17 0600 03/19/17 0536 Tubes & Lines: Chan (Nayeli Serrano) Physical Exam General Appearance: Well Developed, Well Nourished, No Acute Distress, Comfortable, Obese (Nayeli Serrano) Throat Throat Exam: Oral Mucosa [place] & Moist (Nayeli Serrano) Pulmonary Resp Exam: No Distress, Rhonchi, Decreased Bases (Nayeli Serrano) Cardiology CV Exam: Normal Sinus Rhythm, Good Perfusion (Nayeli Serrano) Gastrointestinal/Abdomen GI Exam: Soft, Non-Tender, Bowel Sounds Present GI Remarks ascites, umbilical hernia (Nayeli Serrano) Genitourinary Remarks hematuria in chan (Nayeli Serrano) Musculoskeletal MS Exam: Joints Intact, Normal Tone (Nayeli Serrano) Integumentary Skin Exam: Warm, Dry (Nayeli Serrano) Extremeties Extremities Exam: Trace Edema (Nayeli Serrano) Neurologic Neuro Exam: Alert, Awake, Oriented, Speech Clear, Moving All Extremities (Nayeli Serrano) Psychiatric Psych Exam: Appropriate Responses (Nayeli Serrano) VTE Prophylaxis Device: SCDs (Nayeli Serrano) Assessment/Plan Discussed Condition With: Patient, Spouse Assessment Summary: URI/Acute Renal Failure, Fluid/Volume Overload, Hypertension Electrolyte Assessment: Hyperkalemia Problem List: (1) Acute renal failure ICD Codes: N17.9 - Acute kidney failure, unspecified Status: Acute Plan: In a patient with normal renal function in October originally presented with urinary obstruction, chan placed, stated on flomax he required urgent dialysis on admission renal function is improving, good urine output continue with chan he is off IVF, tolerating PO to be discharged with urology follow up (2) Hyperkalemia ICD Codes: E87.5 - Hyperkalemia Status: Resolved Plan: corrected, now hypokalemic due to poor oral intake replace orally BMP follow BMP (3) Metabolic acidosis ICD Codes: E87.2 - Acidosis Status: Acute Plan: likely due to renal failure, also may be due to metformin use corrected, monitor (4) Hypoglycemia ICD Codes: E16.2 - Hypoglycemia, unspecified Status: Resolved Plan: continue to monitor glucose his A1c is 9 (5) Sepsis ICD Codes: A41.9 - Sepsis, unspecified organism Status: Acute Plan: clinically improving he has left lower lobe pneumonia antibiotics changed to augmentin Plan we will sign off at this time (Nayeli Serrano) Plan patient was seen and examined. Agree with above assessment and plan. We will sign off at this time. (Javi Maria MD) Problem Qualifiers (1) Acute renal failure: (2) Sepsis: Nayeli Serrano Mar 19, 2017 10:35 Javi Maria MD Mar 19, 2017 10:54
[2017-03-19] MEDS ORDERED: NOVOLOGP2 SQ (10:41)
[2017-03-19] MEDS ORDERED: AMOX875T2 PO (10:41)
[2017-03-19] MEDS ORDERED: TAMS5CAP PO (10:41)
[2017-03-19] MEDS ORDERED: SYMB160A INH (10:41)
[2017-03-19] MEDS ORDERED: CARD4TAB2 PO (10:41)
[2017-03-19] MEDS ORDERED: PANT40TA3 PO (10:41)
--- NOTE | 2017-03-19 10:41 | HHI.DCPOC ---
Discharge Care Plan Diagnosis: (1) Major depressive disorder, recurrent, moderate (2) COPD exacerbation (3) Acute hypoxemic respiratory failure (4) Multiple sclerosis (5) Encephalopathy (6) Leukocytosis (7) Hypernatremia (8) Hematuria (9) Altered mental status (10) Acute renal failure (11) Sepsis Goals to Promote Your Health * To prevent worsening of your condition and complications * To maintain your health at the optimal level Directions to Meet Your Goals Take your medications as prescribed Follow your dietary instruction Follow activity as directed Keep your appointments as scheduled Take your immunizations and boosters as scheduled If your symptoms worsen call your PCP, if no PCP go to Urgent Care Center or Emergency Room Smoking is Dangerous to Your Health. Avoid second hand smoke Call the 24-hour hour crisis hotline for domestic abuse at Jonathan Riley MD Mar 19, 2017 10:41
--- NOTE | 2017-03-19 10:44 | HHI.PR ---
Subjective Remarks Follow up renal failure, pneumonia. Patient without complaints at this time. Denies pain. Objective Vitals Vital Signs Date Time Temp Pulse Resp B/P (MAP) Pulse Ox O2 Delivery O2 Flow Rate FiO2 03/19/17 08:40 93 03/19/17 08:00 98.2 79 17 144/64 (90) 92 03/19/17 04:00 96.8 106 19 160/67 (98) 94 03/19/17 00:00 98.6 76 20 163/73 (103) 95 03/18/17 22:16 93 03/18/17 20:00 97.8 78 19 127/60 (82) 96 03/18/17 19:10 72 03/18/17 16:00 96.0 91 16 126/57 (80) 91 03/18/17 12:00 96.7 83 16 126/57 (80) 99 I/O 03/18/17 03/18/17 03/18/17 03/19/17 03/19/17 03/19/17 07:00 15:00 23:00 07:00 15:00 23:00 Intake Total 120 ml 1020 ml 240 ml Output Total 600 ml 1050 ml 900 ml Balance -480 ml -30 ml -660 ml Intake Oral 120 ml 1020 ml 240 ml Output Urine Total 600 ml 1050 ml 900 ml # Bowel Movements 1 2 1 Result Diagram: 03/18/17 0600 03/19/17 0536 Imaging Last Impressions Chest X-Ray 03/13/17 0000 Signed Impressions: Service Date/Time: Monday, March 13, 2017 13:14 - CONCLUSION: Patchy bilateral intra-alveolar infiltrates. Jeremy Rutherford Jr., MD Head CT 03/06/17 1352 Signed Impressions: Service Date/Time: Monday, March 06, 2017 15:25 - CONCLUSION: 1. No acute intracranial abnormality. 2. Atrophy and chronic small vessel ischemic change. Jeremy Rutherford Jr., MD Abdomen/Pelvis CT 03/06/17 0000 Signed Impressions: Service Date/Time: Monday, March 06, 2017 15:29 - CONCLUSION: 1. There is extensive inflammatory change around the right ureteral pelvic junction. There is no significant hydronephrosis in the kidney. There is some inflammatory change around the right kidney as well. Examination would suggest either recent stone passage or possible UTI. If symptoms fail to improve post contrast imaging may be of benefit for further assessment. 2. Atherosclerotic plaquing the coronary arteries. 3. COPD changes in the lung bases. Elliott Salvador MD Objective Remarks General: Elderly male in no acute distress. Sitting up in a chair. Heart: Regular rate and rhythm. No murmur. Lungs: Clear to auscultation bilaterally. No wheezes, rales, or rhonchi. Breathing is nonlabored. Abdomen: Soft, nontender, nondistended. Extremities: No lower extremity edema. SCDs. Psych: Alert, answers questions appropriately. Procedures 03/07/17 Right IJ VasCath placement Urinary Catheter: Yes Assessment to: Continue Mendoza insert reason: Obstruction/Retention Vascular Central Line Catheter: No A/P Problem List: (1) Acute renal failure ICD Code: N17.9 - Acute kidney failure, unspecified Status: Acute (2) Hyperkalemia ICD Code: E87.5 - Hyperkalemia Status: Resolved (3) Hypoglycemia ICD Code: E16.2 - Hypoglycemia, unspecified Status: Resolved (4) Metabolic acidosis ICD Code: E87.2 - Acidosis Status: Acute (5) Encephalopathy ICD Code: G93.40 - Encephalopathy, unspecified (6) Acute hypoxemic respiratory failure ICD Code: J96.01 - Acute respiratory failure with hypoxia Status: Resolved (7) Lactic acidosis ICD Code: E87.2 - Acidosis Status: Acute (8) Leukocytosis ICD Code: D72.829 - Elevated white blood cell count, unspecified (9) Hypernatremia ICD Code: E87.0 - Hyperosmolality and hypernatremia Status: Acute (10) Multiple sclerosis ICD Code: G35 - Multiple sclerosis (11) Hematuria ICD Code: R31.9 - Hematuria, unspecified Status: Resolved (12) Sepsis ICD Code: A41.9 - Sepsis, unspecified organism Status: Acute (13) COPD exacerbation ICD Code: J44.1 - Chronic obstructive pulmonary disease with (acute) exacerbation Assessment and Plan 1. Acute renal failure: Improving. Appreciate nephrology recommendations. Continue IV fluids. Mendoza catheter in place. No more gross hematuria. Continue Flomax. Plan for discharge with Mendoza in place. Creatinine stable overnight. 2. Hypernatremia: Sodium now within normal limits. Appreciate nephrology recommendations. 3. Hyperglycemia: Controlled. Monitor Accu-checks and cover with sliding scale insulin. 4. Toxic metabolic encephalopathy: Resolved. Secondary to hypoglycemia. 5. Lactic acidosis: Resolved. 6. Multiple sclerosis: Chronic. 7. Sepsis: Source is pneumonia. CXR with bilateral infiltrates. Blood and urine cultures are negative. Continue antibiotics. Leukocytosis resolved. 8. GI prophylaxis: PPI. 9. DVT prophylaxis: SCDs. No chemical prophylaxis due to hematuria. Discharge Planning Plan for discharge to SNF when cleared by nephrology. Problem Qualifiers (1) Acute renal failure: (2) Hematuria: Qualified Codes: R31.0 - Gross hematuria (3) Sepsis: Jonathan Riley MD Mar 19, 2017 10:44
[2017-03-19 11:00] VITALS: PULSE 90
[2017-03-19 12:00] VITALS: BP 149/67; PULSE 86; RESP 18; TEMP 96.8; O2SAT 96
--- NOTE | 2017-03-26 11:02 | PQ ---
Physician Query Response Document PATIENT: JOSEPH CANTOR : 1945 ADMIT DATE: 03/06/2017 3:47 PM DISCH DATE: 03/19/2017 3:55 PM RESPONDING PROVIDER #: [email or web address] QUERY TEXT: Clarification of Clinical Diagnostic Findings Please clarify documentation or clinical relevance for the clinical / diagnostic findings or whether those are insignificant or unable to be further specified. Patient admitted with acute renal failure and sepsis. Was acute renal failure : 1)due to sepsis 2)due to obstructive uropathy 3) both sepsis and obstructive uropathy 4)unknown etiology 5)other(please specify) If you have any additional questions/commenst and/or concerns please call [email or web address] The patient's Clinical Indicators include: Dr RILEY, patient was admitted with Acute Renal Failure and Sepsis. Please review the question below and answer to the best of your ability. THANK YOU Query created by: Magdaleno De Luna on 03/21/2017 9:39 AM RESPONSE TEXT: Acute renal failure likely secondary to obstructive uropathy. Electronically signed by: Jonathan Riley MD 03/26/2017 10:58 AM
--- NOTE | 2017-04-17 15:57 | HHI.DS ---
Discharge Summary Admission Date Mar 06, 2017 at 15:47 Discharge Date: Mar 19, 2017 Admitting Diagnosis acute renal failure, hyperkalemia, sepsis, lactic acidosis (1) Acute renal failure ICD Code: N17.9 - Acute kidney failure, unspecified Status: Acute (2) Hyperkalemia ICD Code: E87.5 - Hyperkalemia Status: Resolved (3) Hypoglycemia ICD Code: E16.2 - Hypoglycemia, unspecified Status: Resolved (4) Metabolic acidosis ICD Code: E87.2 - Acidosis Status: Acute (5) Encephalopathy ICD Code: G93.40 - Encephalopathy, unspecified (6) Acute hypoxemic respiratory failure ICD Code: J96.01 - Acute respiratory failure with hypoxia Status: Resolved (7) Lactic acidosis ICD Code: E87.2 - Acidosis Status: Acute (8) Leukocytosis ICD Code: D72.829 - Elevated white blood cell count, unspecified (9) Hypernatremia ICD Code: E87.0 - Hyperosmolality and hypernatremia Status: Acute (10) Multiple sclerosis ICD Code: G35 - Multiple sclerosis (11) Hematuria ICD Code: R31.9 - Hematuria, unspecified Status: Resolved (12) Sepsis ICD Code: A41.9 - Sepsis, unspecified organism Status: Acute (13) COPD exacerbation ICD Code: J44.1 - Chronic obstructive pulmonary disease with (acute) exacerbation Procedures 03/07/17 Right IJ VasCath placement Brief History - From Admission The patient is a 72 year-old male with past medical history of hypertension, diabetes mellitus, hyperlipidemia, depression, newly diagnosed multiple sclerosis who presented to [facility] emergency department after his home health nurse was unable to get him out of bed and she called 911, the patient was severely hypoglycemic in arrival with blood sugar in the 20's. He was hospitalized at the [facility] in [place] where he was admitted after a fall and newly diagnosed with multiple sclerosis. He was discharged to an outpatient rehabilitation facility and then discharged home from rehab yesterday afternoon. Per emergency department records the patient has been drinking a little water. On arrival to the emergency room he had a blood pressure of 152/71. His laboratory data revealed multiple abnormalities where he was hyperkalemic with potassium level of 7.4 and in acute renal failure with a blood urea nitrogen of 111, creatinine 10.21 and hypoglycemia with blood sugar of 51. He was also found to have elevated lactic acid level at 5.8 and leukocytosis with a white blood count of 16.1. Chest x-ray in the emergency room showed bibasilar streakiness, consistent with a probable atelectasis and elevation of the right Hemidiaphragm. A CT scan of the brain was obtained as well which showed no intracranial abnormalities. Due to his lactic acidosis. A CT of the abdomen and pelvis was obtained which showed extensive inflammatory change around the right ureteral pelvic junction with no evidence of hydronephrosis and inflammatory changes around the right kidney as well. Chronic obstructive pulmonary disease changes noted along the bases. For his hyperkalemia, in the emergency room the patient was given two amps of bicarb. Two grams of calcium gluconate and currently receiving a second liter normal saline. The patient was seen by nephrology service and he is about to receive 10 units of IV insulin D50 and Kayexalate. Also bicarbonate drip has been ordered by the nephrology service. The patient is awake, alert, lying comfortably in bed, in no acute distress. He is on two liters of oxygen with saturation, 97%. Current blood pressure 157/70, with pulse of 67. He denies any chest pain, shortness of breath or abdominal pain. In addition the patient denies any cough or constitutional symptoms. A Mendoza was placed in the emergency room and he had one liter out initially within 30 minutes he has had another 1.5 to 2 liters returned. There was also some hematuria noted in the Mendoza. Imaging Last Impressions Chest X-Ray 03/13/17 0000 Signed Impressions: Service Date/Time: Monday, March 13, 2017 13:14 - CONCLUSION: Patchy bilateral intra-alveolar infiltrates. Jeremy Rutherford Jr., MD Head CT 03/06/17 1352 Signed Impressions: Service Date/Time: Monday, March 06, 2017 15:25 - CONCLUSION: 1. No acute intracranial abnormality. 2. Atrophy and chronic small vessel ischemic change. Jeremy Rutherford Jr., MD Abdomen/Pelvis CT 03/06/17 0000 Signed Impressions: Service Date/Time: Monday, March 06, 2017 15:29 - CONCLUSION: 1. There is extensive inflammatory change around the right ureteral pelvic junction. There is no significant hydronephrosis in the kidney. There is some inflammatory change around the right kidney as well. Examination would suggest either recent stone passage or possible UTI. If symptoms fail to improve post contrast imaging may be of benefit for further assessment. 2. Atherosclerotic plaquing the coronary arteries. 3. COPD changes in the lung bases. Elliott Salvador MD PE at Discharge General: Elderly male in no acute distress. Sitting up in a chair. Heart: Regular rate and rhythm. No murmur. Lungs: Clear to auscultation bilaterally. No wheezes, rales, or rhonchi. Breathing is nonlabored. Abdomen: Soft, nontender, nondistended. Extremities: No lower extremity edema. SCDs. Psych: Alert, answers questions appropriately. Hospital Course The patient was admitted for further management of respiratory insufficiency. He was continued on supplemental oxygen, bronchodilators. Urology was consulted to evaluate for hematuria. Nephrology was consulted for renal failure. Vas-Cath was placed for hemodialysis. Pulmonology was consulted. Electrolytes the patient was cleared for discharge by nephrology. Were monitored. Sodium was elevated, but improved with IV fluids. Encephalopathy improved throughout the hospitalization. Patient was noted to have sepsis secondary to pneumonia. He was continued on antibiotics and showed clinical improvement. Arrangements were made for discharge to SNF. Pt Condition on Discharge: Stable Discharge Disposition: Discharge to SNF Discharge Time: > 30 minutes Discharge Instructions DIET: Follow Instructions for: Diabetic Diet Activities you can perform: Regular-No Restrictions Follow up Referrals: Nephrology - 1 Week with Javi Maria MD PCP Follow-up - 2 Weeks Urology - 1 Week with Stu Elliott MD New Medications: Amoxicillin-Clavulanate (Amoxicillin-Clavulanate) 875-125 mg Tab 875 MG PO Q12HR for Infection, #10 TAB 0 Refills not for use in CrCl <30 mL/minute Budesonide-Formoterol Inh (Symbicort Inh) 160-4.5 Mcg/Act Aero 2 PUFF INH Q12HR for Dyspnea, #1 INHALER 0 Refills Doxazosin (Cardura) 4 Mg Tab 4 MG PO HS for Blood Pressure Management, #30 TAB 0 Refills Insulin Aspart Inj (Novolog Inj) 1,000 Unit/10 Ml Vial 7 UNITS SQ TIDPC for Blood Sugar Management, #30 INJECTION 0 Refills Pantoprazole (Pantoprazole) 40 Mg Tab 40 MG PO DAILY for Reflux, #30 TAB 0 Refills Tamsulosin (Flomax) 0.4 Mg Cap 0.4 MG PO DAILY for urinary retention, #30 CAP 0 Refills Continued Medications: Atenolol (Atenolol) 50 Mg Tab 50 MG PO DAILY for Blood Pressure Management, #30 TAB 0 Refills Docusate Sodium (Docusate Sodium) 100 Mg Cap 200 MG PO DAILY for Prevent Constipation, #60 CAP 0 Refills Sertraline (Sertraline) 100 Mg Tab 100 MG PO DAILY, #30 TAB 0 Refills Simvastatin (Simvastatin) 20 Mg Tab 20 MG PO HS for Cholesterol Management, #30 TAB 0 Refills Discontinued Medications: Gabapentin (Gabapentin) 400 Mg Cap 400 CAP PO TID, #30 CAP 0 Refills Glipizide (Glipizide) 10 Mg Tab 20 MG PO BIDAC for Blood Sugar Management, #60 TAB 0 Refills Take 30 minutes before a meal Hydroxyzine Pamoate (Vistaril) 50 Mg Cap 50 MG PO HS PRN for INSOMNIA, CAP 0 Refills Losartan (Losartan) 100 Mg Tab 100 MG PO DAILY for Blood Pressure Management, #30 TAB 0 Refills Metformin (Metformin) 1,000 Mg Tab 1000 MG PO BIDPC for Blood Sugar Management, #60 TAB 0 Refills With meals Miconazole Nitrate Powder (Lotrimin AF Deodorant Powder) 2 % Aerp 1 APPLIC TOPICAL DAILY PRN for FUNGUS Oxybutynin (Ditropan) 5 Mg Tab 2.5 MG PO BID for Urinary Symptom Managemen, #60 TAB 0 Refills Ranitidine (Ranitidine) 150 Mg Tab 150 MG PO BID for Heartburn Management, #60 TAB 0 Refills Jonathan Riley MD Apr 17, 2017 15:57
== END 2017-03-19 15:55 | DRG 871 ==
LOC: NEPE 13:33 → NEDH 15:47 → HIMN 16:40 → N07A 03-12 18:03
PROVIDERS: ADMIT Family Medicine; ATTEND Family Medicine
PROC: 05H633Z Insertion of Infusion Device into Left Subclavian Vein, Percutaneous Approach (ICD-10-PCS; principal; 2017-03-06)
PROC: 0T9B70Z Drainage of Bladder with Drainage Device, Via Natural or Artificial Opening (ICD-10-PCS; 2017-03-06)
PROC: 05HM33Z Insertion of Infusion Device into Right Internal Jugular Vein, Percutaneous Approach (ICD-10-PCS; 2017-03-07)
PROC: 5A1D60Z (ICD-10-PCS; 2017-03-07)
DX: A41.9 Sepsis, unspecified organism (principal); J18.9 Pneumonia, unspecified organism; J96.01 Acute respiratory failure with hypoxia; N17.9 Acute kidney failure, unspecified; G93.41 Metabolic encephalopathy; R18.8 Other ascites; E87.2 Acidosis; E87.0 Hyperosmolality and hypernatremia; J44.0 Chronic obstructive pulmonary disease with (acute) lower respiratory infection; K76.6 Portal hypertension; E87.1 Hypo-osmolality and hyponatremia; N39.0 Urinary tract infection, site not specified; J98.11 Atelectasis; J44.1 Chronic obstructive pulmonary disease with (acute) exacerbation; N13.8 Other obstructive and reflux uropathy; F33.1 Major depressive disorder, recurrent, moderate; E11.649 Type 2 diabetes mellitus with hypoglycemia without coma; F03.90 Unspecified dementia, unspecified severity, without behavioral disturbance, psychotic disturbance, mood disturbance, and anxiety; K74.60 Unspecified cirrhosis of liver; E87.5 Hyperkalemia; G35 Multiple sclerosis; E78.00 Pure hypercholesterolemia, unspecified; F43.10 Post-traumatic stress disorder, unspecified; F17.210 Nicotine dependence, cigarettes, uncomplicated; Z79.84 Long term (current) use of oral hypoglycemic drugs; I10 Essential (primary) hypertension; N32.81 Overactive bladder; I44.0 Atrioventricular block, first degree; I45.10 Unspecified right bundle-branch block; D64.9 Anemia, unspecified; R31.0 Gross hematuria; N40.1 Benign prostatic hyperplasia with lower urinary tract symptoms; R33.8 Other retention of urine; R32 Unspecified urinary incontinence; E87.70 Fluid overload, unspecified; E87.6 Hypokalemia; Z78.1 Physical restraint status; E11.65 Type 2 diabetes mellitus with hyperglycemia; N13.9 Obstructive and reflux uropathy, unspecified
CPT/HCPCS: 36556; 51702; 70450; 71010; 74176; 76937; 80048; 80053; 80069; 80074; 80202; 81001; 82140; 82550; 82948; 83036; 83605; 83735; 84100; 84155; 84443; 84484; 85007; 85025; 85027; 85610; 87040; 87086; 87641; 90935; 93005; 94150; 94640; 94664; 96374; C9113; J0610; J1580; J1644; J1815; J2405; J2543; J2920; J2930; J3370; J3480; J7030; J7040; J7050; J7070; J7512

== ENCOUNTER 2017-04-18 21:19 | Emergency (ER) | payer MEDICARE, OTHER ==
[~2017-04-18] VITALS: Ht 172.7 cm; Wt 98.0 kg
[~2017-04-18 21:19] MED LIST changes: +AMOX875T2 PO; +CARD4TAB2 PO; -GABA400C5 PO; -GLIP10TA6 PO; -LOSA100T PO; -LOTR2AER2 TOPICAL; -METF1000 PO; +NOVOLOGP2 SQ; -OXYB5TAB10 PO; +PANT40TA3 PO; -RANI150T PO; +SYMB160A INH; +TAMS5CAP PO; -VIST50CA PO
[2017-04-18 21:30] VITALS: BP 163/72; PULSE 66; RESP 18; TEMP 98.7; O2SAT 96
--- NOTE | 2017-04-18 21:36 | PD ---
HPI Chief Complaint: urinary retention Time Seen by Provider: 21:31 Travel History International Travel<30 days: No Contact w/Intl Traveler<30days: No History of Present Illness HPI Patient comes in from assisted living facility after he accidentally pulled out his urinary Mendoza while transferring himself from a wheelchair. Per report balloon was fully inflated causing some vern blood and the staff at the [facility] were unable to reinsert a Mendoza catheter causing patient to be was sent to the emergency department for further treatment and evaluation. Denies anything making symptoms better or worse. Patient denies any pain anywhere other medical complaints at this time. Patient does have a history of COPD, hypertension, depression, urinary retention, and is currently under treatment for C. difficile. PFSH Past Medical History Autoimmune Disease: Yes (MS) High Cholesterol: Yes Diabetes: Yes Psychiatric: Yes (PTSD) Social History Alcohol Use: Yes (" will not buy anymore beer for me") Tobacco Use: Yes Substance Use: No (Denies) Allergies-Medications (Allergen,Severity, Reaction): Coded Allergies: No Known Allergies (Unverified , 11/16/16) Reported Meds & Prescriptions Reported Meds & Active Scripts Active Pantoprazole (Pantoprazole Sodium) 40 Mg Tab 40 Mg PO DAILY Symbicort Inh (Budesonide/Formoterol Fumarate) 160-4.5 Mcg/Act Aero 2 Puff INH Q12HR Cardura (Doxazosin Mesylate) 4 Mg Tab 4 Mg PO HS Flomax (Tamsulosin HCl) 0.4 Mg Cap 0.4 Mg PO DAILY Amoxicillin-Clavulanate 875-125 mg Tab 875 Mg PO Q12HR not for use in CrCl <30 mL/minute Novolog Inj (Insulin Aspart) 1,000 Unit/10 Ml Vial 7 Units SQ TIDPC Reported Docusate Sodium 100 Mg Cap 200 Mg PO DAILY Atenolol 50 Mg Tab 50 Mg PO DAILY Simvastatin 20 Mg Tab 20 Mg PO HS Sertraline (Sertraline HCl) 100 Mg Tab 100 Mg PO DAILY Review of Systems Except as stated in HPI: all other systems reviewed are Neg Physical Exam Narrative GENERAL: Well-developed, overly nourished, in no acute distress, and non-ill appearing. SKIN: Focused skin assessment warm and dry. HEAD: Atraumatic. Normocephalic. EYES: Pupils equal and round. EOMI. No scleral icterus. No injection or drainage. ENT: No nasal bleeding or discharge. Mucous membranes pink and moist. NECK: Trachea midline. Supple. No nuclear rigidity. RESPIRATORY: No accessory muscle use. No respiratory distress. GASTROINTESTINAL: Abdomen soft, non-tender, nondistended, and no guarding. Hepatic and splenic margins not palpable. No pulsatile mass. GENITOURINARY: Circumcised. Testes descended bilaterally without evidence of rotation. No lesions or erythema. Recent urethral bloody discharge noted without active bleeding currently. MUSCULOSKELETAL: No obvious deformities. No clubbing. No cyanosis. No edema. Full range of motion. NEUROLOGICAL: Awake and alert. No obvious cranial nerve deficits. Motor grossly within normal limits. Normal speech. Data Data Last Documented VS Vital Signs Date Time Temp Pulse Resp B/P (MAP) Pulse Ox O2 Delivery O2 Flow Rate FiO2 04/19/17 08:01 04/19/17 04:00 76 16 96 04/18/17 21:30 98.7 Orders Orders Continue Menodza/Suprapubic Cath (04/18/17 21:30) [facility] Medical Decision Making Medical Screen Exam Complete: Yes Emergency Medical Condition: Yes Differential Diagnosis Urinary retention, medical health researcher function, other Narrative Course RN was easily able to reinsert Mendoza getting normal urine output and without gross hematuria noted. Patient in no obvious distress upon re-evaluation. Discussed patient with Dr. Rivera prior to discharge, who is in agreement with plan of care and disposition. Any questions/concerns in reference to patient diagnosis/condition discussed and clarified prior to patient's discharge. Reinforced sheer importance of close follow up with patient's primary physician or primary care clinic. Instructed patient to return to ED immediately, if symptoms return/worsen. Patient showed understanding of above instructions. Further instructions and recommendations were detailed in discharge paperwork. Patient left without difficulty out of ED at discharge. Diagnosis Primary Impression: Mendoza catheter problem Qualified Codes: T83.9XXA - Unspecified complication of genitourinary prosthetic device, implant and graft, initial encounter Additional Impression: Urinary retention Patient Instructions: Mendoza Catheter Placement and Care (ED), General Instructions, Urinary Retention in Men (DC) Additional Instructions: Follow-up with your primary care physician in 3-5 days for reevaluation. Return to the emergency department if symptoms get worse. Disposition: 01 DISCHARGE HOME Condition: Stable Maurizio Espinosa Apr 18, 2017 21:36
[2017-04-18 22:39] VITALS: BP 135/89
[2017-04-19 04:00] VITALS: BP 152/75; PULSE 76; RESP 16; O2SAT 96
== END 2017-04-19 08:03 | disposition home or self-care (01) ==
LOC: NEPE 21:19 → NEPD 04-19 08:03
DX: T83.028A Displacement of other urinary catheter, initial encounter (principal); R33.9 Retention of urine, unspecified; I10 Essential (primary) hypertension; E11.9 Type 2 diabetes mellitus without complications; E78.00 Pure hypercholesterolemia, unspecified; G35 Multiple sclerosis; Z72.0 Tobacco use; Z79.4 Long term (current) use of insulin; Z86.59 Personal history of other mental and behavioral disorders; Z87.09 Personal history of other diseases of the respiratory system; Z87.19 Personal history of other diseases of the digestive system
CPT/HCPCS: 51702

== ENCOUNTER 2017-05-27 22:56 | Inpatient (IN) | payer MEDICARE, OTHER ==
[~2017-05-27 22:56] MED LIST changes: -DOCU100C PO; +DOCU100C15 PO
[2017-05-27 23:11] VITALS: BP 117/59; PULSE 85; RESP 16; TEMP 97.9; O2SAT 92
[2017-05-27] MEDS ORDERED: SODIUM CHLOR 0.9% 1000 ML INJ 1,000 ML IV SCH (23:13)
[2017-05-27] MEDS ORDERED: SODIUM CHLORIDE 0.9% FLUSH 5 ML FLUSH IV FLUSH PRN (23:15)
[2017-05-27 23:22] VITALS: RESP 16; O2SAT 96
--- NOTE | 2017-05-27 23:46 | RADRPT ---
EXAM DATE/TIME: 05/27/2017 23:18 [place] COMPARISON: CT BRAIN W/O CONTRAST, March 06, 2017, 15:25. INDICATIONS : Altered mental status. RADIATION DOSE: 56.35 CTDIvol (mGy) MEDICAL HISTORY : Non-responsive. SURGICAL HISTORY : Non-responsive. ENCOUNTER: Initial ACUITY: 1 day PAIN SCALE: Non-responsive LOCATION: cranial TECHNIQUE: Multiple contiguous axial images were obtained of the head. Using automated exposure control and adj ustment of the mA and/or kV according to patient size, radiation dose was kept as low as reasonably a chievable to obtain optimal diagnostic quality images. DICOM format image data is available electro nically for review and comparison. FINDINGS: Noncontrast axial head CT demonstrates the ventricles to be enlarged with a prominent sulcal pattern compatible with atrophy. No acute intracranial hemorrhage, acute cortical infarction, mass or midline shift is seen. There is extensive periventricular hypodensity compatible with chronic ischemic yousif e significantly more than expected for patient this age.Posterior fossa structures are unremarkable. Bone windows demonstrate no abnormality. CONCLUSION: Atrophy. No evidence of acute intracranial pathology. Lorenzo Wang MD on May 27, 2017 at 23:44 Board Certified Radiologist. This report was verified electronically.
[2017-05-27] MEDS ORDERED: CHOL4POW PO (23:50)
[2017-05-27] MEDS ORDERED: VANC250C2 PO (23:50)
[2017-05-27] MEDS ORDERED: OMEP20TA93 PO (23:50)
[2017-05-27] MEDS ORDERED: FLUT1INH INH (23:50)
[2017-05-27] MEDS ORDERED: LOPE2TAB21 PO (23:50)
[2017-05-27] MEDS ORDERED: IPRASOL INH (23:50)
[2017-05-27] MEDS ORDERED: FOLI800T PO (23:50)
[2017-05-27] MEDS ORDERED: CULT10CA4 PO (23:50)
[2017-05-27] MEDS ORDERED: METR1TAB76 PO (23:50)
[2017-05-27] MEDS ORDERED: FIBE625T PO (23:50)
[2017-05-27] MEDS ORDERED: NOVOLOGP2 SQ (23:50)
[2017-05-27] MEDS ORDERED: FURO40TA PO (23:50)
[2017-05-27] MEDS ORDERED: NOVOINJ3 SQ (23:50)
[2017-05-27] MEDS ORDERED: LANTUS2P SQ (23:50)
[2017-05-27] MEDS ORDERED: NU-I150C PO (23:50)
[2017-05-27] MEDS ORDERED: POTA10CA PO (23:50)
--- NOTE | 2017-05-27 23:55 | PD ---
HPI Chief Complaint: Altered Mental Status Time Seen by Provider: 23:13 Travel History International Travel<30 days: No Contact w/Intl Traveler<30days: No Traveled to known affect area: No History of Present Illness HPI The patient is a 72 year old male who presents to the [facility] emergency department with a history of altered mentation that began at an unspecified period of time. [facility] a [facility]. They were unsure exactly when the patient became altered. They were not able to state to ambulance services whether the patient is oriented to person, place, time, at baseline. The patient at this time is only oriented to person. They did report to ambulance services of the patient's recent history is significant for a few weeks ago being diagnosed with C. difficile colitis. The patient is status post treatment. The patient continues to have diarrhea, however most recent C. difficile testing was negative. The patient was noted by the [facility] staff this evening to be less alert and talkative compared to previously, therefore ambulance services were called. The patient himself is unable to provide any significant history. He since family shortly after his arrival arrives at the bedside and reports that the patient has had waxing and waning mentation since the fall 4 months ago. He reportedly was in rehabilitation after the fall and seemed to improve and was discharged back home. The patient then developed altered mentation and was brought back to the emergency department and told that he was in acute renal failure. The patient had a Mendoza catheter placed to gravity. The patient was placed on hemodialysis for 2 days according the family and then improved. The patient was again discharged back to rehabilitation. The patient subsequently developed C. difficile colitis. The patient responded to antibiotic for treatment. The patient 2 days ago had a negative C. difficile toxin of his stool. The patient had improvement of his diarrhea up until yesterday when he developed a recurrence according to the family. [facility] Past Medical History Narrative Medical The patient's past medical history is significant for having a history of C. difficile colitis, history of congestive heart failure, depression, multiple sclerosis, hyperlipidemia, COPD, hypertension Autoimmune Disease: Yes (MS) Depression: Yes (MAJOR DEPRESSIVE DISORDER) High Cholesterol: Yes Congestive Heart Failure: Yes COPD: Yes Diabetes: Yes Patient Takes Glucophage: Yes Diminished Hearing: No Gastrointestinal Disorders: Yes (INFECTIOUS GASTROENTERITIS COLITIS) GERD: Yes Genitourinary: Yes (UTI'S) Hypertension: Yes Psychiatric: Yes (PTSD) Pneumonia: Yes Tetanus Vaccination: Unknown Influenza Vaccination: No Past Surgical History Surgical History: Unable to Obtain Social History Alcohol Use: Yes (" will not buy anymore beer for me") Tobacco Use: Yes Substance Use: No (Denies) Allergies-Medications (Allergen,Severity, Reaction): Coded Allergies: No Known Allergies (Unverified , 11/16/16) Reported Meds & Prescriptions Reported Meds & Active Scripts Active Cardura (Doxazosin Mesylate) 4 Mg Tab 4 Mg PO HS Flomax (Tamsulosin HCl) 0.4 Mg Cap 0.4 Mg PO DAILY Reported Omeprazole 20 Mg Tab 20 Mg PO DAILY Duoneb (Ipratropium-Albuterol Neb) 0.5-2.5 Mg/3 Ml Neb 1 Nebule INH Q4HR NEB Novolog Inj (Insulin Aspart) 1,000 Unit/10 Ml Vial 2-12 Units SQ ACHS Max dose at bedtime ( ) units; sugars less than 70,(0) units; sugars 150-199,(2) units; sugars 200-249,(4) units; sugars 250-299,(7) units; sugars 300-349,(10) units; sugars greater than 349,(12)units Novolog Flexpen Inj (Insulin Aspart) 300 Unit/3 Ml Pen 4 Units SQ TID Furosemide 40 Mg Tab 40 Mg PO DAILY Breo Ellipta Inh (Fluticasone/Vilanterol) 100-25 Mcg/Act Inh 1 Puff INH DAILY Use daily at the same time. Folic Acid 0.8 Mg Tab 1 Mg PO DAILY Fibercon (Calcium Polycarbophil) 625 Mg Tab 1,250 Mg PO BID Cholestyramine Light 4 Gm/Dose Powd 4 Gm PO BID 1 level scoopful of powder contains 4 grams of cholestyramine. Potassium Chloride ER (Potassium Chloride) 10 Meq Cap 20 Meq PO BID Nu-Iron 150 (Polysaccharide Iron Complex) 150 Mg Iron Cap 150 Mg PO DAILY Metronidazole 500 Mg Tab 500 Mg PO TID Vancomycin (Vancomycin HCl) 250 Mg Cap 250 Mg PO QID Loperamide (Loperamide HCl) 2 Mg Tablet 2 Mg PO TID Culturelle (Lactobacillus Rhamnosus (GG)) 10 Billion Cell Cap 1 Cap PO BID Lantus Inj (Insulin Glargine) 100 Unit/Ml Inj 30 Unit SQ HS Atenolol 50 Mg Tab 50 Mg PO DAILY Sertraline (Sertraline HCl) 100 Mg Tab 100 Mg PO DAILY Review of Systems General / Constitutional: No: Fever Eyes: No: Visual changes HENT: No: Headaches Cardiovascular: No: Chest Pain or Discomfort Respiratory: No: Shortness of Breath Gastrointestinal: Positive: Diarrhea, Loss of Appetite, No: Abdominal Pain Genitourinary: No: Dysuria Musculoskeletal: No: Pain Skin: No Rash Neurologic: Positive: Change in Mentation, No: Weakness, Focal Abnormalities, Slurred Speech, Sensory Disturbance Psychiatric: No: Depression Endocrine: No: Polydipsia Hematologic/Lymphatic: No: Easy Bruising Physical Exam Narrative General: The patient is a well-developed well-nourished male in no acute distress. Head and Neck exam: Head is normocephalic atraumatic. Eyes: EOMI, pupils are equal round and reactive to light. Nose: Midline septum with pink mucous membranes Mouth: Dentition unremarkable. Dry mucus membranes. Posterior oropharynx is not erythematous. No tonsillar hypertrophy. Uvula midline. Airway patent. Neck: No palpable lymphadenopathy. No nuchal rigidity. No thyromegaly. Cardiovascular: Regular rate and rhythm without murmurs, gallops, or rubs. Lungs: Decreased breath sounds in bilateral lung bases, no wheezes or rhonchi audible. The patient's left lower lung field has crackles audible. Abdomen: Soft, with tenderness on palpation of the left lower quadrant and suprapubic area, no other tenderness on palpation of the other quadrants of the abdomen. No guarding, rebound, or rigidity. Normal bowel sounds are audible. No tenderness on palpation of McBurney's point. Extremities: No clubbing, cyanosis, or edema. 2+ pulses in all 4 extremities. No calf tenderness on palpation. Back: No spinous process tenderness to palpation. No costovertebral angle tenderness to palpation. Neurologic Exam: Grossly nonfocal. Skin Exam: No rash noted. Skin is warm and dry. On examination of the patient' s back the patient is noted to have a less than 1 cm area of abrasion along the sacrum with diaper rash cream noted to be in place along his buttock area. There is no other area of skin breakdown. Data Data Last Documented VS Vital Signs Date Time Temp Pulse Resp B/P (MAP) Pulse Ox O2 Delivery O2 Flow Rate FiO2 05/27/17 23:22 16 96 Room Air 05/27/17 23:11 97.9 85 117/59 (78) Orders Orders Electrocardiogram (05/27/17 23:13) Ammonia (05/27/17 23:13) Complete Blood Count With Diff (05/27/17 23:13) Comprehensive Metabolic Panel (05/27/17 23:13) Creatine Kinase (Cpk) (05/27/17 23:13) Prothrombin Time / Inr (Pt) (05/27/17 23:13) Act Partial Throm Time (Ptt) (05/27/17 23:13) Troponin I (05/27/17:) Thyroid Stimulating Hormone (05/27/17:13) Urinalysis - C+S If Indicated (05/27/17 23:13) Lactic Acid Sepsis Protocol (05/27/17 23:13) Blood Culture (05/27/17 23:13) Chest, Single Ap (05/27/17 23:13) Blood Glucose (05/27/17 23:13) Ecg Monitoring (05/27/17 23:13) Iv Access Insert/Monitor (05/27/17 23:13) Oximetry (05/27/17 23:13) Sodium Chloride 0.9% Flush (Ns Flush) (05/27/17 23:15) Sodium Chlor 0.9% 1000 Ml Inj (Ns 1000 M (05/27/17 23:13) Ct Brain W/O Iv Contrast(Rout) (05/27/17 23:13) Urine Culture (05/27/17 23:42) Sodium Chlor 0.9% 1000 Ml Inj (Ns 1000 M (05/28/17 01:00) Admit Order (Ed Use Only) (05/28/17 02:03) Labs Laboratory Tests Test 05/27/17 23:42 White Blood Count 15.2 TH/MM3 Red Blood Count 4.56 MIL/MM3 Hemoglobin 12.0 GM/DL Hematocrit 38.8 % Mean Corpuscular Volume 85.1 FL Mean Corpuscular Hemoglobin 26.4 PG Mean Corpuscular Hemoglobin Concent 31.0 % Red Cell Distribution Width 18.7 % Platelet Count 278 TH/MM3 Mean Platelet Volume 9.0 FL Neutrophils (%) (Auto) 77.4 % Lymphocytes (%) (Auto) 13.9 % Monocytes (%) (Auto) 8.2 % Eosinophils (%) (Auto) 0.3 % Basophils (%) (Auto) 0.2 % Neutrophils # (Auto) 11.7 TH/MM3 Lymphocytes # (Auto) 2.1 TH/MM3 Monocytes # (Auto) 1.2 TH/MM3 Eosinophils # (Auto) 0.1 TH/MM3 Basophils # (Auto) 0.0 TH/MM3 CBC Comment DIFF FINAL Differential Comment Prothrombin Time 11.2 SEC Prothromb Time International Ratio 1.0 RATIO Activated Partial Thromboplast Time 27.9 SEC Urine Color YELLOW Urine Turbidity HAZY Urine pH 6.5 Urine Specific [place] 1.013 Urine Protein 30 mg/dL Urine Glucose (UA) NEG mg/dL Urine Ketones NEG mg/dL Urine Occult Blood MOD Urine Nitrite POS Urine Bilirubin NEG Urine Urobilinogen LESS THAN 2.0 MG/DL Urine Leukocyte Esterase LARGE Urine RBC 74 /hpf Urine WBC 169 /hpf Urine WBC Clumps MANY Urine Squamous Epithelial Cells 1 /hpf Urine Bacteria MANY /hpf Microscopic Urinalysis Comment CATH-CULTURE IND Blood Urea Nitrogen 40 MG/DL Creatinine 1.91 MG/DL Random Glucose 226 MG/DL Total Protein 6.1 GM/DL Albumin 2.2 GM/DL Calcium Level 8.1 MG/DL Alkaline Phosphatase 80 U/L Aspartate Amino Transf (AST/SGOT) 10 U/L Alanine Aminotransferase (ALT/SGPT) 14 U/L Total Bilirubin 0.2 MG/DL Sodium Level 143 MEQ/L Potassium Level 6.2 MEQ/L Chloride Level 114 MEQ/L Carbon Dioxide Level 17.2 MEQ/L Anion Gap 12 MEQ/L Estimat Glomerular Filtration Rate 35 ML/MIN Lactic Acid Level 1.5 mmol/L Ammonia 12 MCMOL/L Total Creatine Kinase 11 U/L Troponin I LESS THAN 0.02 NG/ML Thyroid Stimulating Hormone 3rd Gen 2.740 uIU/ML MDM Medical Decision Making Medical Screen Exam Complete: Yes Emergency Medical Condition: Yes Medical Record Reviewed: Yes Interpretation(s) Last Impressions Head CT 05/27/172312 Signed Impressions: Service Date/Time: Saturday, May 27, 2017 23:18 - CONCLUSION: Atrophy. No evidence of acute intracranial pathology. Lorenzo Wang MD Chest X-Ray 05/27/172312 Signed Impressions: Service Date/Time: Saturday, May 27, 2017 23:18 - CONCLUSION: 1. Cardiomegaly. No acute pulmonary disease. Lorenzo Wang MD Differential Diagnosis Dehydration, versus intracranial abnormality, versus hepatic encephalopathy, versus hypoglycemia, versus sepsis related encephalopathy Narrative Course During the course of the patients emergency department visit, the patients history, examination, and differential diagnosis were reviewed with the patient. The patient was placed on a bus driver/monitor with oximetry and frequent blood pressure monitoring. The patient had IV access obtained and blood work sent for analysis. The patient was initially provided normal saline at 125 mL per hour. The patients laboratory studies were reviewed and remarkable for a white count of 15.2, hemoglobin 12, platelets 278 with 77.4 neutrophils, monocytes 8.2, CMP is remarkable for potassium of 6.2, chloride 114, CO2 17.2, BUN 40, creatinine 1.91, glucose 226, calcium 8.1, AST 10, ammonia level XII, CPK 11, troponin I less than 0.02, TSH 2.74, lactic acid 1.5, PT PTT within normal limits. Urinalysis shows positive nitrite, large leukocyte esterase, 76 rbc's, wbc's 169 , clumps many, many bacteria. The patient was given Rocephin 1 g IV. Radiology studies were reviewed and remarkable for a chest x-ray that shows cardiomegaly, no acute pulmonary disease. CT scan of the brain shows atrophy, no evidence of acute intracranial pathology per The patients results were discussed with the patient, including the plan of care. I explained that further testing and/ or monitoring is indicated based on the patients history, examination, and/ or laboratory findings. Therefore, I recommended admission for additional evaluation. The patient expressed understanding and was agreeable with this plan. The patient was admitted to the hospital in stable condition and sent to a bed under the care of [facility] service. Sepsis Criteria SIRS Criteria (2 or more): WBC > 88607, < 4000 or > 10% bands Physician Communication Physician Communication The patient's case including history, pertinent physical examination findings, and laboratory studies were discussed with Dr. Macias. It was agreed that the patient would be admitted to the [facility] service. Diagnosis Primary Impression: Acute on chronic renal failure Qualified Codes: N17.9 - Acute kidney failure, unspecified; N18.9 - Chronic kidney disease, unspecified Additional Impression: Urinary tract infection Qualified Codes: T83.511A - Infection and inflammatory reaction due to indwelling urethral catheter, initial encounter; N39.0 - Urinary tract infection , site not specified Admitting Information Admitting Physician Requests: Admit Valarie Vaughan MD May 27, 2017 23:55
[2017-05-28] VITALS (9 sets, daily range): BP systolic 105–123; BP diastolic 53–59; PULSE 75–109; RESP 16–24; TEMP 96.2–98.5; O2SAT 94–98
[2017-05-28 00:09] LABS: AUTOMATED NEUTROPHIL # 11.7 TH/MM3 (1.8-7.7); BASOPHIL % 0.2 % (0.0-2.0); EOSINOPHIL # 0.1 TH/MM3 (0-0.4); EOSINOPHIL % 0.3 % (0.0-4.0); HEMATOCRIT 38.8 % (39.0-51.0); HEMO FLAGS DIFF FINAL; LYMPH % 13.9 % (9.0-44.0); LYMPHOCYTE # 2.1 TH/MM3 (1.0-4.8); MEAN CELL VOLUME 85.1 FL (80.0-100.0); MEAN CORPUSCULAR HEMOGLOBIN 26.4 PG (27.0-34.0); MONO % 8.2 % (0.0-8.0); NEUT % 77.4 % (16.0-70.0); PLATELET COUNT 278 TH/MM3 (150-450); RED BLOOD COUNT 4.56 MIL/MM3 (4.50-5.90); RED CELL DISTRIBUTION WIDTH 18.7 % (11.6-17.2); WHITE BLOOD COUNT 15.2 TH/MM3 (4.0-11.0)
--- NOTE | 2017-05-28 00:10 | RADRPT ---
EXAM DATE/TIME: 05/27/2017 23:18 [place] COMPARISON: CHEST SINGLE AP, March 13, 2017, 13:14. INDICATIONS : Altered mental status, shortness of breath. MEDICAL HISTORY : Diabetes mellitus type I. SURGICAL HISTORY : Unknown ENCOUNTER: Initial ACUITY: 1 day PAIN SCORE: Non-responsive. LOCATION: Bilateral chest FINDINGS: The cardiac silhouette is enlarged in transverse diameter. There is elevation of the right hemidiaphr agm. The lungs are free of acute parenchymal opacity. No effusions are identified. CONCLUSION: 1. Cardiomegaly. No acute pulmonary disease. Lorenzo Wang MD on May 28, 2017 at 0:08 Board Certified Radiologist. This report was verified electronically.
[2017-05-28 00:14] LABS: BACTERIA, URINE MANY /hpf; BLOOD, URINE MOD (NEG); COMMENT (UR) CATH-CULTURE IND; CULTURE IF INDICATED CATH CULTURE IND; GLUCOSE,URINE NEG (NEG); KETONE, URINE NEG (NEG); NITRITE,URINE POS (NEG); PH, URINE 6.5 (5.0-8.5); SQUAMOUS EPITHELIAL CELL URINE 1 /hpf (0-5); URINE COLOR YELLOW (YELLW/STRAW)
[2017-05-28 00:26] LABS: APTT (PATIENT) 27.9 SEC (24.3-30.1); PROTHROMBIN TIME - PATIENT 11.2 SEC (9.8-11.6)
[2017-05-28 00:44] LABS: ALT (GPT) 14 U/L (12-78); ANION GAP 12 MEQ/L (5-15); AST (GOT) 10 U/L (15-37); BICARBONATE 17.2 MEQ/L (21.0-32.0); BLOOD UREA NITROGEN 40 MG/DL (7-18); CHLORIDE 114 MEQ/L (98-107); GLOMERULAR FILTRATION RATE 35 ML/MIN (>89); POTASSIUM 6.2 MEQ/L (3.5-5.1); SODIUM (NA) 143 MEQ/L (136-145)
[2017-05-28 00:54] LABS: ALKALINE PHOSPHATASE 80 U/L (45-117); TOTAL BILIRUBIN ADULT 0.2 MG/DL (0.2-1.0)
[2017-05-28] MEDS ORDERED: SODIUM CHLOR 0.9% 1000 ML INJ 1,000 ML IV ONE (01:00)
[2017-05-28 01:07] LABS: CREATINE KINASE 11 U/L (39-308)
[2017-05-28] MEDS ORDERED: SODIUM CHLORIDE 0.9% FLUSH 10 ML FLUSH IV FLUSH PRN (03:15)
[2017-05-28] MEDS ORDERED: NALOXONE HCL 0.4 MG/ML AMP IV PUSH PRN (03:15)
[2017-05-28] MEDS ORDERED: DEXTROSE 50% IN WATER 50 ML VIAL(D50) IV PUSH ONE (03:15)
[2017-05-28] MEDS ORDERED: CALCIUM GLUCONATE 10% 1 GM/10 ML VIAL IV PUSH ONE (03:15)
[2017-05-28] MEDS ORDERED: INSULIN HUMAN REGULAR 1,000 UNITS/10 ML VIAL IV PUSH ONE (03:15)
[2017-05-28] MEDS ORDERED: ACETAMINOPHEN 325 MG TAB PO PRN (03:15)
[2017-05-28] MEDS ORDERED: ONDANSETRON HCL 4 MG/2 ML VIAL IVP PRN (03:15)
[2017-05-28] MEDS ORDERED: RESP: ALBUTEROL CONC 2.5 MG/0.5 ML NEB INH ONE (03:15)
[2017-05-28] MEDS: SODIUM CHLOR 0.45% 1000 ML INJ 1,000 ML IV SCH ×2 (04:10→22:54)
[2017-05-28] MEDS ORDERED: cefTRIAXone INJ 1,000 MG in SODIUM CHLORIDE 0.9% INJ 100 ML IV ONE (06:45)
--- NOTE | 2017-05-28 06:53 | HHI.HP ---
HPI Service [facility] Hospitalists Primary Care Physician Unknown Admission Diagnosis AMS, Dehydration, UTI Diagnoses: Travel History International Travel<30 Days: No Contact w/Intl Traveler <30 Da: No Traveled to Known Affected Are: No History of Present Illness 72-year-old male who presents to the [place] emergency department with altered mental status. The patient currently resides in a [place] [facility]. The exact timeframe of his AMS is unknown. Patient was recently diagnosed with C. difficile colitis and is status post treatment. He does continue to have diarrhea however most recent C. difficile 2 days ago testing was negative. The patient was noted by his [place] [facility] [place] staff to be less alert and talkative compared to previously and EMS was called. The patient himself is unable to provide any significant history. He is alert and oriented only to self. From ED notes, the patient's family reported that the patient's mental status has been waxing and waning symptoms for 4 months ago. He was recently treated for acute renal failure that required dialysis in March of this year. Patient has had an indwelling Mendoza since that time. Labs significant for a leukocytosis of 15.2, BUN/Cr 40/1.91 (baseline 1.4), K+ 6.2. UA c/w UTI. Review of Systems Denies fever or chills Denies blurry vision, otorrhea, rhinorrhea Denies sore throat and cough No chest pain, palpitations, shortness of breath No abdominal pain Denies constipation/diarrhea/nausea/vomiting Denies muscle pain/weakness No rashes Past Family Social History Past Medical History (Obtained from medical records) 1. Type 2 DM 2. Hypertension. 3. Hyperlipidemia. 4. Over active bladder. 5. Depression. 6. Newly diagnosed multiple sclerosis. Past Surgical History Unable to obtain Reported Medications Reported Meds & Active Scripts Active Cardura (Doxazosin Mesylate) 4 Mg Tab 4 Mg PO HS Flomax (Tamsulosin HCl) 0.4 Mg Cap 0.4 Mg PO DAILY Reported Omeprazole 20 Mg Tab 20 Mg PO DAILY Duoneb (Ipratropium-Albuterol Neb) 0.5-2.5 Mg/3 Ml Neb 1 Nebule INH Q4HR NEB Novolog Inj (Insulin Aspart) 1,000 Unit/10 Ml Vial 2-12 Units SQ ACHS Max dose at bedtime ( ) units; sugars less than 70,(0) units; sugars 150-199,(2) units; sugars 200-249,(4) units; sugars 250-299,(7) units; sugars 300-349,(10) units; sugars greater than 349,(12)units Novolog Flexpen Inj (Insulin Aspart) 300 Unit/3 Ml Pen 4 Units SQ TID Furosemide 40 Mg Tab 40 Mg PO DAILY Breo Ellipta Inh (Fluticasone/Vilanterol) 100-25 Mcg/Act Inh 1 Puff INH DAILY Use daily at the same time. Folic Acid 0.8 Mg Tab 1 Mg PO DAILY Fibercon (Calcium Polycarbophil) 625 Mg Tab 1,250 Mg PO BID Cholestyramine Light 4 Gm/Dose Powd 4 Gm PO BID 1 level scoopful of powder contains 4 grams of cholestyramine. Potassium Chloride ER (Potassium Chloride) 10 Meq Cap 20 Meq PO BID Nu-Iron 150 (Polysaccharide Iron Complex) 150 Mg Iron Cap 150 Mg PO DAILY Metronidazole 500 Mg Tab 500 Mg PO TID Vancomycin (Vancomycin HCl) 250 Mg Cap 250 Mg PO QID Loperamide (Loperamide HCl) 2 Mg Tablet 2 Mg PO TID Culturelle (Lactobacillus Rhamnosus (GG)) 10 Billion Cell Cap 1 Cap PO BID Lantus Inj (Insulin Glargine) 100 Unit/Ml Inj 30 Unit SQ HS Atenolol 50 Mg Tab 50 Mg PO DAILY Sertraline (Sertraline HCl) 100 Mg Tab 100 Mg PO DAILY Allergies: Coded Allergies: No Known Allergies (Unverified , 11/16/16) Family History Unable to obtain Social History The patient is an active smoker with a 60+ year pack of smoking, occasional EtOH. Physical Exam Vital Signs Vital Signs Date Time Temp Pulse Resp B/P (MAP) Pulse Ox O2 Delivery O2 Flow Rate FiO2 05/28/17 04:45 98.5 109 20 111/59 (76) 95 05/28/17 04:26 05/28/17 04:24 05/28/17 04:12 88 16 123/58 (79) 94 Room Air 05/28/17 03:55 98 21 05/27/17 23:22 16 96 Room Air 05/27/17 23:11 97.9 85 16 117/59 (39) 92 Physical Exam GENERAL: Elderly, confused male lying in bed SKIN: No rashes, ecchymoses or lesions. Cool and dry. HEAD: Atraumatic. Normocephalic. No temporal or scalp tenderness. EYES: Pupils equal round and reactive. Extraocular motions intact. No scleral icterus. No injection or drainage. ENT: Nose without bleeding, purulent drainage or septal hematoma. Throat without erythema, tonsillar hypertrophy or exudate. Uvula midline. Airway patent. NECK: Trachea midline. No JVD or lymphadenopathy. Supple, nontender, no meningeal signs. CARDIOVASCULAR: Regular rate and rhythm without murmurs, gallops, or rubs. RESPIRATORY: Clear to auscultation. Breath sounds equal bilaterally. No wheezes , rales, or rhonchi. GASTROINTESTINAL: Abdomen soft, non-tender, nondistended. No hepato-splenomegaly , or palpable masses. No guarding. : Mendoza in place with clear urine MUSCULOSKELETAL: Extremities without clubbing, cyanosis, or edema. No joint tenderness, effusion, or edema noted. NEUROLOGICAL: Awake and alert. Cranial nerves II through XII intact. Motor and sensory grossly within normal limits. Normal speech. A&O to self. Laboratory Laboratory Tests Test 05/27/17 23:42 White Blood Count 15.2 Red Blood Count 4.56 Hemoglobin 12.0 Hematocrit 38.8 Mean Corpuscular Volume 85.1 Mean Corpuscular Hemoglobin 26.4 Mean Corpuscular Hemoglobin Concent 31.0 Red Cell Distribution Width 18.7 Platelet Count 278 Mean Platelet Volume 9.0 Neutrophils (%) (Auto) 77.4 Lymphocytes (%) (Auto) 13.9 Monocytes (%) (Auto) 8.2 Eosinophils (%) (Auto) 0.3 Basophils (%) (Auto) 0.2 Neutrophils # (Auto) 11.7 Lymphocytes # (Auto) 2.1 Monocytes # (Auto) 1.2 Eosinophils # (Auto) 0.1 Basophils # (Auto) 0.0 CBC Comment DIFF FINAL Differential Comment Prothrombin Time 11.2 Prothromb Time International Ratio 1.0 Activated Partial Thromboplast Time 27.9 Urine Color YELLOW Urine Turbidity HAZY Urine pH 6.5 Urine Specific [place] 1.013 Urine Protein 30 Urine Glucose (UA) NEG Urine Ketones NEG Urine Occult Blood MOD Urine Nitrite POS Urine Bilirubin NEG Urine Urobilinogen LESS THAN 2.0 Urine Leukocyte Esterase LARGE Urine RBC 74 Urine WBC 169 Urine WBC Clumps MANY Urine Squamous Epithelial Cells 1 Urine Bacteria MANY Microscopic Urinalysis Comment CATH-CULTURE IND Blood Urea Nitrogen 40 Creatinine 1.91 Random Glucose 226 Total Protein 6.1 Albumin 2.2 Calcium Level 8.1 Alkaline Phosphatase 80 Aspartate Amino Transf (AST/SGOT) 10 Alanine Aminotransferase (ALT/SGPT) 14 Total Bilirubin 0.2 Sodium Level 143 Potassium Level 6.2 Chloride Level 114 Carbon Dioxide Level 17.2 Anion Gap 12 Estimat Glomerular Filtration Rate 35 Lactic Acid Level 1.5 Ammonia 12 Total Creatine Kinase 11 Troponin I LESS THAN 0.02 Thyroid Stimulating Hormone 3rd Gen 2.740 Date/Time Source Procedure Growth Status 05/27/17 23:50 Blood Peripheral Aerobic Blood Culture Pending Received 05/27/17 23:50 Blood Peripheral Anaerobic Blood Culture Pending Received 05/27/17 23:42 Urine Catheterized Urine Urine Culture Pending Received Result Diagram: 05/27/17 2342 05/27/17 2342 Caprini VTE Risk Assessment Caprini VTE Risk Assessment: Mod/High Risk (score >= 2) Caprini Risk Assessment Model Point Value = 1 Point Value = 2 Point Value = 3 Point Value = 5 Age 41-60 Minor surgery BMI > 25 kg/m2 Swollen legs Varicose veins or History of unexplained or recurrent spontaneous Oral contraceptives or hormone replacement Sepsis (< 1 month) Serious lung disease, including pneumonia (< 1 month) Abnormal pulmonary function Acute myocardial infarction Congestive heart failure (< 1 month) History of inflammatory bowel disease Medical patient at bed rest Age 61-74 Arthroscopic surgery Major open surgery (> 45 min) Laparoscopic surgery (> 45 min) Malignancy Confined to bed (> 72 hours) Immobilizing plaster cast Central venous access Age >= 75 History of VTE Family history of VTE Factor V Leiden Prothrombin [id number] Lupus anticoagulant Anticardiolipin antibodies Elevated serum homocysteine Heparin-induced thrombocytopenia Other congenital or acquired thrombophilia Stroke (< 1 month) Elective arthroplasty Hip, pelvis, or leg fracture Acute spinal cord injury (< 1 month) Prophylaxis Regimen Total Risk Factor Score Risk Level Prophylaxis Regimen 0-1 Low Early ambulation 2 Moderate Order ONE of the following: *Sequential Compression Device (SCD) *Heparin 5000 units SQ BID 3-4 Higher Order ONE of the following medications: *Heparin 5000 units SQ TID *Enoxaparin/Lovenox 40 mg SQ daily (WT < 150 kg, CrCl > 30 mL/min) *Enoxaparin/Lovenox 30 mg SQ daily (WT < 150 kg, CrCl > 10-29 mL/min) *Enoxaparin/Lovenox 30 mg SQ BID (WT < 150 kg, CrCl > 30 mL/min) AND/OR *Sequential Compression Device (SCD) 5 or more Highest Order ONE of the following medications: *Heparin 5000 units SQ TID (Preferred with Epidurals) *Enoxaparin/Lovenox 40 mg SQ daily (WT < 150 kg, CrCl > 30 mL/min) *Enoxaparin/Lovenox 30 mg SQ daily (WT < 150 kg, CrCl > 10-29 mL/min) *Enoxaparin/Lovenox 30 mg SQ BID (WT < 150 kg, CrCl > 30 mL/min) AND *Sequential Compression Device (SCD) Assessment and Plan Assessment and Plan 72-year-old male with a past medical history significant for hypertension, type 2 diabetes mellitus, hyperlipidemia, recent kidney failure requiring dialysis currently with indwelling catheter presents to the emergency department with altered mental status. Patient was found to be hyperkalemic with a urinary tract infection. He was recently treated for C. difficile, repeat C. difficile toxin negative. 1. AMS CT head negative for acute process Per family, patient's mental status waxes and wanes Suspect secondary to UTI Treatment as below 2. Hyperkalemia K+ 6.2 Calcium gluconate, albuterol, Insulin, D50 Recheck BMP 3. UTI Rocephin Culture pending Patient with indwelling catheter, followed by urology 4. UIR BUN/creatinine 40/1.91 Baseline of 1.4 Gentle IV fluid hydration Consider nephrology consult if kidney function does not improve 5. Recent C. difficile colitis Status post treatment Repeat C. difficile negative 2 days ago Monitor for diarrhea 6. Hypertension Continue Cardura, atenolol, furosemide 7. Type 2 diabetes mellitus Continue Lantus 30 units daily at bedtime SSI FEN Heart healthy diet Electrolytes as above Fluids: NS at 70 cc/hour Heparin Shoshana Macias MD May 28, 2017 06:53
[2017-05-28] MEDS: HEPARIN SODIUM - SQ 10,000 UNITS/ML VIAL SQ SCH ×2 (07:31→20:26)
[2017-05-28] MEDS: SODIUM CHLORIDE 0.9% FLUSH 10 ML FLUSH IV FLUSH SCH ×2 (07:32→20:12)
[2017-05-28 08:09] LABS: AUTOMATED NEUTROPHIL # 10.4 TH/MM3 (1.8-7.7); BASOPHIL # 0.1 TH/MM3 (0-0.2); BASOPHIL % 0.5 % (0.0-2.0); EOSINOPHIL % 0.2 % (0.0-4.0); HEMATOCRIT 38.7 % (39.0-51.0); HEMO FLAGS DIFF FINAL; LYMPH % 13.8 % (9.0-44.0); LYMPHOCYTE # 1.9 TH/MM3 (1.0-4.8); MEAN CELL VOLUME 85.5 FL (80.0-100.0); MEAN CORPUSCULAR HGB CONC 31.5 % (32.0-36.0); MONO % 9.2 % (0.0-8.0); NEUT % 76.3 % (16.0-70.0); PLATELET COUNT 259 TH/MM3 (150-450); RED BLOOD COUNT 4.53 MIL/MM3 (4.50-5.90); RED CELL DISTRIBUTION WIDTH 18.9 % (11.6-17.2); WHITE BLOOD COUNT 13.6 TH/MM3 (4.0-11.0)
[2017-05-28 08:17] LABS: ALT (GPT) 11 U/L (12-78); ANION GAP 11 MEQ/L (5-15); AST (GOT) 10 U/L (15-37); BICARBONATE 14.1 MEQ/L (21.0-32.0); BLOOD UREA NITROGEN 36 MG/DL (7-18); CHLORIDE 115 MEQ/L (98-107); GLOMERULAR FILTRATION RATE 37 ML/MIN (>89); POTASSIUM 5.6 MEQ/L (3.5-5.1); SODIUM (NA) 140 MEQ/L (136-145)
[2017-05-28 08:19] LABS: ALKALINE PHOSPHATASE 70 U/L (45-117); TOTAL BILIRUBIN ADULT 0.2 MG/DL (0.2-1.0)
--- NOTE | 2017-05-28 08:22 | EKG ---
Date Performed: 05/27/2017 Time Performed: 23:10:20 PTAGE: 72 years EKG: Sinus rhythm NORMAL ECG PREVIOUS TRACING : 03/12/2017 08.05 Compared to previous tracing, heart rate has increased. DOCTOR: Elias Rivero Interpretating Date/Time 05/28/2017 08:21:32
[2017-05-28] MEDS ORDERED: ENOXAPARIN SODIUM 40 MG/0.4 ML SYRINGE SQ SCH (09:00)
[2017-05-28] MEDS ORDERED: SODIUM POLYSTYRENE SULFONATE SUSP 15 GM/60 ML CUP PO ONE (13:00)
[2017-05-28] MEDS: DOXAZOSIN MESYLATE 4 MG TAB PO SCH (20:26)
[2017-05-29] VITALS (8 sets, daily range): BP systolic 102–138; BP diastolic 50–63; PULSE 78–93; RESP 18–20; TEMP 97.7–98.1; O2SAT 94–95
[2017-05-29] MEDS: cefTRIAXone INJ 1,000 MG in SODIUM CHLORIDE 0.9% INJ 100 ML IV SCH (05:11)
[2017-05-29 08:02] LABS: HEMATOCRIT 35.5 % (39.0-51.0); MEAN CELL VOLUME 86.4 FL (80.0-100.0); MEAN CORPUSCULAR HEMOGLOBIN 27.2 PG (27.0-34.0); MEAN CORPUSCULAR HGB CONC 31.5 % (32.0-36.0); PLATELET COUNT 205 TH/MM3 (150-450); RED BLOOD COUNT 4.11 MIL/MM3 (4.50-5.90); RED CELL DISTRIBUTION WIDTH 19.3 % (11.6-17.2); REVIEW FLAG FINAL
[2017-05-29 08:19] LABS: BICARBONATE 15.6 MEQ/L (21.0-32.0); POTASSIUM 5.1 MEQ/L (3.5-5.1)
[2017-05-29] MEDS: HEPARIN SODIUM - SQ 10,000 UNITS/ML VIAL SQ SCH ×2 (10:22→20:40)
[2017-05-29] MEDS: SODIUM CHLORIDE 0.9% FLUSH 10 ML FLUSH IV FLUSH SCH ×2 (10:22→20:40)
--- NOTE | 2017-05-29 10:30 | HHI.PR ---
Subjective Remarks The patient was lethargic. He denied any pain. He just said he was tired. He had no acute complaints. Discussed with nursing. Objective Vitals Vital Signs Date Time Temp Pulse Resp B/P (MAP) Pulse Ox O2 Delivery O2 Flow Rate FiO2 05/29/17 08:14 97.9 79 20 138/63 (88) 94 05/29/17 03:57 97.7 78 18 119/56 (77) 95 05/28/17 20:38 97.6 84 18 116/55 (75) 95 05/28/17 20:16 85 05/28/17 17:08 98.4 78 24 115/58 (77) 95 05/28/17 12:06 96.2 75 24 105/53 (70) 95 I/O 05/28/17 05/28/17 05/28/17 05/29/17 05/29/17 05/29/17 07:00 15:00 23:00 07:00 15:00 23:00 Intake Total 425 ml 350 ml Output Total 800 ml 700 ml 750 ml Balance 425 ml -450 ml -700 ml -750 ml Intake Oral 250 ml IV Total 425 ml 100 ml Output Urine Total 800 ml 700 ml 750 ml Result Diagram: 05/29/1730 05/29/17629 Imaging Last Impressions Head CT 05/27/172312 Signed Impressions: Service Date/Time: Saturday, May 27, 2017 23:18 - CONCLUSION: Atrophy. No evidence of acute intracranial pathology. Lorenzo Wang MD Chest X-Ray 05/27/172312 Signed Impressions: Service Date/Time: Saturday, May 27, 2017 23:18 - CONCLUSION: 1. Cardiomegaly. No acute pulmonary disease. Lorenzo Wang MD Objective Remarks GENERAL: Elderly, confused male lying in bed. SKIN: No rashes, ecchymoses or lesions. Cool and dry. HEAD: Atraumatic. Normocephalic. No temporal or scalp tenderness. EYES: Pupils equal round and reactive. Extraocular motions intact. No scleral icterus. No injection or drainage. ENT: Nose without bleeding, purulent drainage or septal hematoma. Throat without erythema, tonsillar hypertrophy or exudate. Uvula midline. Airway patent. NECK: Trachea midline. No JVD or lymphadenopathy. Supple, nontender, no meningeal signs. CARDIOVASCULAR: Regular rate and rhythm without murmurs, gallops, or rubs. RESPIRATORY: Clear to auscultation. Breath sounds equal bilaterally. No wheezes , rales, or rhonchi. GASTROINTESTINAL: Abdomen soft, non-tender, nondistended. No hepato-splenomegaly , or palpable masses. No guarding. : Mendoza in place with clear urine MUSCULOSKELETAL: Extremities without clubbing, cyanosis, or edema. No joint tenderness, effusion, or edema noted. NEUROLOGICAL: Awake and alert. Cranial nerves II through XII intact. Motor and sensory grossly within normal limits. Normal speech. A&O to self. PSYCH: Flat affect. Medications and IVs Current Medications Medications (Trade) Dose Ordered Sig/Juan Route Start Time Stop Time Status Last Admin (NS Flush) 2 ml UNSCH PRN IV FLUSH 05/28/17 03:15 (NS Flush) 2 ml BID IV FLUSH 05/28/17 09:00 05/29/17 10:22 (Tylenol) 650 mg Q4H PRN PO 05/28/17 03:15 (Zofran Inj) 4 mg Q6H PRN IVP 05/28/17 03:15 (Narcan Inj) 0.4 mg UNSCH PRN IV PUSH 05/28/17 03:15 Sodium Chloride 1,000 ml @ 70 mls/hr [id number] IV 05/28/17 03:30 05/28/17 22:54 Ceftriaxone Sodium 1000 mg/ Sodium Chloride 100 ml @ 200 mls/hr Q24H IV 05/29/17 06:00 05/29/17 05:11 (Heparin Inj) 5,000 units Q12HR SQ 05/28/17 09:00 05/29/17 10:22 (Cardura) 4 mg HS PO 05/28/17 21:00 05/28/17 20:26 A/P Assessment and Plan 72-year-old male with a past medical history significant for hypertension, type 2 diabetes mellitus, hyperlipidemia, recent kidney failure requiring dialysis currently with indwelling catheter presents to the emergency department with altered mental status. Patient was found to be hyperkalemic with a urinary tract infection. He was recently treated for C. difficile, repeat C. difficile toxin negative. AMS CT head negative for acute process. Per family, patient's mental status waxes and wanes. Has had multiple infections and renal failure recently. Suspect secondary to UTI. TSH normal. - antibiotics. - PT/ OT/ ST. - check ABG. - neuro checks. Hyperkalemia K+ 6.2. S/p calcium gluconate, albuterol, Insulin, D50 and Kayexalate. - Recheck BMP. Improved. UTI Patient with indwelling catheter, followed by urology. - continue Rocephin. - follow cultures. URI BUN/creatinine 40/1.91 Baseline of 1.4 - Gentle IV fluid hydration. Improved. Recent C. difficile colitis Status post treatment. Repeat C. difficile negative 2 days ago. - Monitor for diarrhea. Hypertension Well controlled. - Continue Cardura, atenolol. Hold furosemide. Type 2 diabetes mellitus On Lantus 30 units daily at bedtime. - SSI. - add Levemir as needed. PPx: Heparin Discharge Planning Awaiting clinical improvement Tushar Moody DO May 29, 2017 10:30
[2017-05-29] MEDS: FLUTICASONE 100 MCG/VILANTEROL 25 MCG INHALER INH SCH (10:45)
[2017-05-29] MEDS ORDERED: RESP: ALBUTEROL 2.5 MG/IPRATROPIUM 0.5 MG NEB (PRN) NEB (11:00)
[2017-05-29 11:03] LABS: BLOOD GAS BASE EXCESS -8.6 mmol/L (-2-2); BLOOD GAS CARBOXYHEMOGLOBIN 1.3 % (0-4); BLOOD GAS HCO3 16 mmol/L (22-26); BLOOD GAS METHEMOGLOBIN 0.6 % (0-2); BLOOD GAS O2 HGB SATURATION 92 % (90-100); BLOOD GAS OXYGEN CONTENT 13.8 Vol % (12.0-20.0); BLOOD GAS PCO2 29 mmHg (38-42); BLOOD GAS PO2 69 mmHG (61-120); BLOOD GAS TOTAL HGB 10.7 G/DL (12.0-16.0); TEMP CORR TO 98.6
[2017-05-29 11:04] LABS: CRITICAL VALUE YES; DRAW SITE LT BRACHIAL; FIO2 21 %; NUMBER OF ARTERIAL PUNCTURES 2; ULNAR PULSE PRESENT
[2017-05-29 11:05] LABS: STAT NO
[2017-05-29] MEDS: TAMSULOSIN HCL 0.4 MG CAP PO SCH (12:53)
[2017-05-29] MEDS: FOLIC ACID 1 MG TAB PO SCH (12:53)
[2017-05-29] MEDS: INSULIN ASPART SUPPLEMENTAL SCALE SQ SCH ×3 (13:34→20:55)
[2017-05-29] MEDS: SODIUM CHLOR 0.45% 1000 ML INJ 1,000 ML IV SCH ×2 (19:16→23:40)
[2017-05-29] MEDS: DOXAZOSIN MESYLATE 4 MG TAB PO SCH (20:40)
[2017-05-30] VITALS (11 sets, daily range): BP systolic 115–144; BP diastolic 56–62; PULSE 85–113; RESP 18–21; TEMP 97.5–98.3; O2SAT 93–97
[2017-05-30] MEDS: cefTRIAXone INJ 1,000 MG in SODIUM CHLORIDE 0.9% INJ 100 ML IV SCH (05:17)
[2017-05-30 06:30] LABS: HEMATOCRIT 33.9 % (39.0-51.0); MEAN CORPUSCULAR HEMOGLOBIN 26.5 PG (27.0-34.0); MEAN CORPUSCULAR HGB CONC 31.6 % (32.0-36.0); PLATELET COUNT 217 TH/MM3 (150-450); RED BLOOD COUNT 4.03 MIL/MM3 (4.50-5.90); RED CELL DISTRIBUTION WIDTH 18.5 % (11.6-17.2); REVIEW FLAG FINAL; WHITE BLOOD COUNT 9.4 TH/MM3 (4.0-11.0)
[2017-05-30 06:57] LABS: BICARBONATE 17.8 MEQ/L (21.0-32.0); MAGNESIUM 1.9 MG/DL (1.5-2.5); POTASSIUM 4.4 MEQ/L (3.5-5.1)
[2017-05-30] MEDS: SODIUM CHLORIDE 0.9% FLUSH 10 ML FLUSH IV FLUSH SCH ×2 (09:00→21:25)
[2017-05-30] MEDS: HEPARIN SODIUM - SQ 10,000 UNITS/ML VIAL SQ SCH ×2 (09:22→21:27)
[2017-05-30] MEDS: INSULIN ASPART SUPPLEMENTAL SCALE SQ SCH ×4 (09:22→21:28)
[2017-05-30] MEDS: FOLIC ACID 1 MG TAB PO SCH (09:22)
[2017-05-30] MEDS: TAMSULOSIN HCL 0.4 MG CAP PO SCH (09:22)
[2017-05-30] MEDS: FLUTICASONE 100 MCG/VILANTEROL 25 MCG INHALER INH SCH (09:23)
[2017-05-30] MEDS: SODIUM CHLOR 0.45% 1000 ML INJ 1,000 ML IV SCH (09:23)
[2017-05-30] MEDS ORDERED: AMPICILLIN-SULBACTAM INJ 3 GM in SODIUM CHLORIDE 0.9% INJ 100 ML IV SCH (10:00)
--- NOTE | 2017-05-30 14:11 | HHI.PR ---
Subjective Remarks The pt was eating yogurt. His family was at the bedside and their questions were answered. Discussed with nursing. Objective Vitals Vital Signs Date Time Temp Pulse Resp B/P (MAP) Pulse Ox O2 Delivery O2 Flow Rate FiO2 05/30/17 12:07 87 05/30/17 12:04 97.5 90 21 119/59 (79) 93 05/30/17 08:44 97.7 96 18 118/56 (76) 97 05/30/17 07:39 85 05/30/17 05:08 98.3 87 18 130/62 (84) 95 05/30/17 03:50 87 05/30/17 00:15 90 05/30/17 00:05 97.9 108 18 144/60 (88) 97 05/29/17 20:54 98.1 90 18 102/50 (67) 95 05/29/17 20:15 93 05/29/17 15:22 97.9 81 20 117/58 (77) 95 05/29/17 15:00 81 I/O 05/29/17 05/29/17 05/29/17 05/30/17 05/30/17 05/30/17 07:00 15:00 23:00 07:00 15:00 23:00 Intake Total 240 ml 1100 ml Output Total 750 ml 325 ml Balance -750 ml 240 ml -325 ml 1100 ml Intake Oral 240 ml IV Total 1100 ml Output Urine Total 750 ml 325 ml # Bowel Movements 1 Result Diagram: 05/30/17 0527 05/30/17 0527 Imaging Last Impressions Head CT 05/27/172312 Signed Impressions: Service Date/Time: Saturday, May 27, 2017 23:18 - CONCLUSION: Atrophy. No evidence of acute intracranial pathology. Lorenzo Wang MD Chest X-Ray 05/27/172312 Signed Impressions: Service Date/Time: Saturday, May 27, 2017 23:18 - CONCLUSION: 1. Cardiomegaly. No acute pulmonary disease. Lorenzo Wang MD Objective Remarks GENERAL: No distress. SKIN: No rashes, ecchymoses or lesions. Cool and dry. HEAD: Atraumatic. Normocephalic. No temporal or scalp tenderness. EYES: Pupils equal round and reactive. Extraocular motions intact. No scleral icterus. No injection or drainage. ENT: Nose without bleeding, purulent drainage or septal hematoma. Throat without erythema, tonsillar hypertrophy or exudate. Uvula midline. Airway patent. NECK: Trachea midline. No JVD or lymphadenopathy. Supple, nontender, no meningeal signs. CARDIOVASCULAR: Regular rate and rhythm without murmurs, gallops, or rubs. RESPIRATORY: Clear to auscultation. Breath sounds equal bilaterally. No wheezes , rales, or rhonchi. GASTROINTESTINAL: Abdomen soft, non-tender, nondistended. No hepato-splenomegaly , or palpable masses. No guarding. : Mendoza in place with clear urine MUSCULOSKELETAL: Extremities without clubbing, cyanosis, or edema. No joint tenderness, effusion, or edema noted. NEUROLOGICAL: Awake and alert. Cranial nerves II through XII intact. Motor and sensory grossly within normal limits. Normal speech. A&O to self. Medications and IVs Current Medications Medications (Trade) Dose Ordered Sig/Juan Route Start Time Stop Time Status Last Admin (NS Flush) 2 ml UNSCH PRN IV FLUSH 05/28/17 03:15 (NS Flush) 2 ml BID IV FLUSH 05/28/17 09:00 05/29/17 10:22 (Tylenol) 650 mg Q4H PRN PO 05/28/17 03:15 (Zofran Inj) 4 mg Q6H PRN IVP 05/28/17 03:15 (Narcan Inj) 0.4 mg UNSCH PRN IV PUSH 05/28/17 03:15 Sodium Chloride 1,000 ml @ 70 mls/hr [id number] IV 05/28/17 03:30 05/30/17 09:23 (Heparin Inj) 5,000 units Q12HR SQ 05/28/17 09:00 05/30/17 09:22 (Cardura) 4 mg HS PO 05/28/17 21:00 05/29/17 20:40 (Breo Ellipta 100-25 Inh) 1 puff DAILY INH 05/29/17 10:45 05/30/17 09:23 (Folate) 1 mg DAILY PO 05/29/17 10:45 05/30/17 09:22 (Flomax) 0.4 mg DAILY PO 05/29/17 10:45 05/30/17 09:22 (NovoLOG SUPPLEMENTAL SCALE) 1 ACHS SLIDING SCALE SQ 05/29/17 12:00 05/30/17 12:58 (Duoneb Neb) 1 ampule Q2HR NEB PRN NEB 05/29/17 11:00 Piperacillin Sod/ Tazobactam Sod 100 ml @ 200 mls/hr Q6H IV 05/30/17 14:00 UNV A/P Assessment and Plan 72-year-old male with a past medical history significant for hypertension, type 2 diabetes mellitus, hyperlipidemia, recent kidney failure requiring dialysis currently with indwelling catheter presents to the emergency department with altered mental status. Patient was found to be hyperkalemic with a urinary tract infection. He was recently treated for C. difficile, repeat C. difficile toxin negative. AMS CT head negative for acute process. Per family, patient's mental status waxes and wanes. Has had multiple infections and renal failure recently. Suspect secondary to UTI. TSH normal. ABG negative for CO2 retention. - antibiotics. - PT/ OT/ ST. - neuro checks. Hyperkalemia K+ 6.2. S/p calcium gluconate, albuterol, Insulin, D50 and Kayexalate. - Recheck BMP. Resikved, UTI Patient with chronic Mendoza, followed by urology at the [place]. Culture growing ESBL e coli and pseudomonas. - continue Zosyn. - ID and urology consults requested. URI BUN/creatinine 40/1.91 Baseline of 1.4 - Gentle IV fluid hydration. Improved. Recent C. difficile colitis Status post treatment. Repeat C. difficile negative 2 days ago. - Monitor for diarrhea. Hypertension Well controlled. - Continue Cardura, atenolol. Hold furosemide. Type 2 diabetes mellitus On Lantus 30 units daily at bedtime. - SSI. - add Levemir 15 units HS. PPx: Heparin Discharge Planning Awaiting clinical improvement Tushar Moody DO May 30, 2017 14:11
[2017-05-30] MEDS ORDERED: PIPERACIL-TAZO 4.5 GM PREMIX 100 ML IV SCH (17:00)
--- NOTE | 2017-05-30 19:21 | PD.ID.CON ---
History of Present Illness Service ID Consult Requested By Dr Moody Reason for Consult ESBL + E.coli UTI Primary Care Physician Unknown Diagnoses: History of Present Illness Pt is a poor historian history form the [facility], chart 72 yo with chronic chan , changed 1-2 days ago presented with alf with altered menal status Pt was started on abx (zosyn) No fever, leukocytosis improed down from 15K Abnormal UA and urine clx are positive for ESBL + E.coli and PSAE Review of Systems ROS Limitations: Altered Mental Status, Poor Historian Past Family Social History Allergies: Coded Allergies: No Known Allergies (Unverified , 11/16/16) Past Medical History 1. Type 2 DM 2. Hypertension. 3. Hyperlipidemia. 4. Overactive bladder. 5. Depression. 6. Newly diagnosed multiple sclerosis. Past Surgical History Past Surgical History Unable to obtain Active Ordered Medications Medications where reviewed in EMR Antibiotics Include: pip tazo Family History Unable to obtain Social History The patient is an active smoker with a 60+ year pack of smoking, occasional EtOH. resided in [place] Physical Exam Vital Signs Vital Signs Date Time Temp Pulse Resp B/P (MAP) Pulse Ox O2 Delivery O2 Flow Rate FiO2 05/30/17 12:07 87 05/30/17 12:04 97.5 90 21 119/59 (79) 93 05/30/17 08:44 97.7 96 18 118/56 (76) 97 05/30/17 07:39 85 05/30/17 05:08 98.3 87 18 130/62 (84) 95 05/30/17 03:50 87 05/30/17 00:15 90 05/30/17 00:05 97.9 108 18 144/60 (88) 97 05/29/17 20:54 98.1 90 18 102/50 (67) 95 05/29/17 20:15 93 Physical Exam CONSTITUTIONAL/GENERAL: This is an adequately nourished patient, in no apparent distress. TUBES/LINES/DRAINS: SKIN: No jaundice, rashes, or lesions. Skin temperature appropriate. Not diaphoretic. HEAD: Atraumatic. Normocephalic. EYES: Pupils equal and round and reactive. Extraocular motions intact. No scleral icterus. No injection or drainage. Fundi not examined. ENT: Hearing grossly normal. Nose without bleeding or purulent drainage. Throat without visible erythema, exudates, masses, or lesions. NECK: Trachea midline. Supple, nontender. CARDIOVASCULAR: Regular rate and rhythm without murmurs, gallops, or rubs. No JVD. Peripheral pulses symmetric. RESPIRATORY/CHEST: Symmetric, unlabored respirations. Clear to auscultation. Breath sounds equal bilaterally. No wheezes, rales, or rhonchi. GASTROINTESTINAL: Abdomen soft, non-tender, nondistended. No hepato-splenomegaly , or palpable masses. No guarding. Bowel sounds present. Incontinent of brown stool GENITOURINARY: Without palpable bladder distension. Chan catheter in place. with clear yellow urine MUSCULOSKELETAL: Extremities without clubbing, cyanosis, or edema. No joint tenderness or effusion noted. No calf tenderness. No mottling or clubbing. LYMPHATICS: No palpable cervical or supraclavicular adenopathy. NEUROLOGICAL: Awake and alert. Motor and sensory grossly within normal limits. Follows commands. COnfused; oriented x 1 only Moves all extremities. PSYCHIATRIC: No obvious anxiety/depression. no apparent hallucinations or other psychotic thought process. Laboratory Laboratory Tests Test 05/30/17 05:27 White Blood Count 9.4 Red Blood Count 4.03 Hemoglobin 10.7 Hematocrit 33.9 Mean Corpuscular Volume 84.0 Mean Corpuscular Hemoglobin 26.5 Mean Corpuscular Hemoglobin Concent 31.6 Red Cell Distribution Width 18.5 Platelet Count 217 Mean Platelet Volume 8.5 Blood Urea Nitrogen 27 Creatinine 1.47 Random Glucose 161 Calcium Level 8.0 Magnesium Level 1.9 Sodium Level 139 Potassium Level 4.4 Chloride Level 112 Carbon Dioxide Level 17.8 Anion Gap 9 Estimat Glomerular Filtration Rate 47 Date/Time Source Procedure Growth Status 05/27/17 23:50 Blood Peripheral Aerobic Blood Culture - Preliminary NO GROWTH IN 2 DAYS Resulted 05/27/17 23:50 Blood Peripheral Anaerobic Blood Culture - Preliminary NO GROWTH IN 2 DAYS Resulted 05/27/17 23:42 Urine Catheterized Urine Urine Culture - Final Escherichia Coli Esbl Positive Pseudomonas Aeruginosa Complete Result Diagram: 05/30/1727 05/30/17526 Imaging Last Impressions Head CT 05/27/17 [id number] Signed Impressions: Service Date/Time: Saturday, May 27, 2017 23:18 - CONCLUSION: Atrophy. No evidence of acute intracranial pathology. Lorenzo Wang MD Chest X-Ray 05/27/17 [id number] Signed Impressions: Service Date/Time: Saturday, May 27, 2017 23:18 - CONCLUSION: 1. Cardiomegaly. No acute pulmonary disease. Lorenzo Wang MD Assessment and Plan Assessment and Plan UTI, ESBL+ E.coli, PSAE yChronic chan Diarrea, abx-associated with h/o C.diff dc zosyn start meropenem chk stool for C.diff Discussed Condition With Cassidy Sandoval MD May 30, 2017 19:21
[2017-05-30] MEDS ORDERED: MISCELLANEOUS PHARMACY INFORMATION XX PRN (19:30)
[2017-05-30] MEDS ORDERED: ASP: Documented ESBL, MDR A baumannii or P. aeruginosa PRN (19:30)
[2017-05-30] MEDS: MEROPENEM INJ 1,000 MG in SODIUM CHLORIDE 0.9% INJ 100 ML IV SCH (21:00)
[2017-05-30] MEDS ORDERED: INSULIN DETEMIR 100 UNITS/ML VIAL SQ SCH (21:00)
[2017-05-30] MEDS: DOXAZOSIN MESYLATE 4 MG TAB PO SCH (21:27)
[2017-05-31] VITALS (10 sets, daily range): BP systolic 118–135; BP diastolic 57–64; PULSE 92–130; RESP 18–22; TEMP 97.2–99.4; O2SAT 92–96
[2017-05-31 02:57] LABS: C. DIFF EPI 027 PRESUMPTIVE NEGATIVE (NEGATIVE)
[2017-05-31] MEDS: SODIUM CHLOR 0.45% 1000 ML INJ 1,000 ML IV SCH (03:43)
[2017-05-31] MEDS: INSULIN ASPART SUPPLEMENTAL SCALE SQ SCH ×4 (08:00→22:55)
[2017-05-31] MEDS: SODIUM CHLORIDE 0.9% FLUSH 10 ML FLUSH IV FLUSH SCH ×2 (09:00→22:52)
[2017-05-31 09:30] LABS: HEMATOCRIT 33.4 % (39.0-51.0); MEAN CELL VOLUME 84.3 FL (80.0-100.0); MEAN CORPUSCULAR HGB CONC 32.1 % (32.0-36.0); PLATELET COUNT 195 TH/MM3 (150-450); RED BLOOD COUNT 3.97 MIL/MM3 (4.50-5.90); RED CELL DISTRIBUTION WIDTH 18.9 % (11.6-17.2); REVIEW FLAG FINAL; WHITE BLOOD COUNT 8.5 TH/MM3 (4.0-11.0)
[2017-05-31] MEDS: INSULIN DETEMIR 100 UNITS/ML VIAL SQ SCH ×2 (10:02→22:55)
[2017-05-31] MEDS: MEROPENEM INJ 1,000 MG in SODIUM CHLORIDE 0.9% INJ 100 ML IV SCH ×3 (10:02→22:45)
[2017-05-31] MEDS: FLUTICASONE 100 MCG/VILANTEROL 25 MCG INHALER INH SCH (10:02)
[2017-05-31] MEDS: HEPARIN SODIUM - SQ 10,000 UNITS/ML VIAL SQ SCH ×2 (10:03→22:54)
[2017-05-31] MEDS: FOLIC ACID 1 MG TAB PO SCH (10:03)
[2017-05-31] MEDS: TAMSULOSIN HCL 0.4 MG CAP PO SCH (10:03)
[2017-05-31 10:19] LABS: BICARBONATE 17.8 MEQ/L (21.0-32.0)
--- NOTE | 2017-05-31 14:36 | HHI.PR ---
Subjective Remarks The pt complained of back and leg pain. Otherwise he had no acute complaints. Was resting in bed. Objective Vitals Vital Signs Date Time Temp Pulse Resp B/P (MAP) Pulse Ox O2 Delivery O2 Flow Rate FiO2 05/31/17 12:21 97.6 99 22 118/58 (78) 94 05/31/17 08:51 97.2 97 20 119/62 (81) 92 05/31/17 08:00 92 05/31/17 03:30 99.4 97 18 121/57 (78) 96 05/31/17 03:20 94 05/31/17 00:15 115 05/30/17 23:28 98.1 98 19 132/60 (84) 95 05/30/17 20:48 113 05/30/17 19:27 98.1 108 19 115/59 (77) 94 I/O 05/30/17 05/30/17 05/30/17 05/31/17 05/31/17 05/31/17 07:00 15:00 23:00 07:00 15:00 23:00 Intake Total 1200 ml 100 ml 100 ml Output Total 325 ml 750 ml 1000 ml Balance -325 ml 1200 ml -650 ml -1000 ml 100 ml IV Total 1200 ml 100 ml 100 ml Output Urine Total 325 ml 750 ml 1000 ml Result Diagram: 05/31/1740 05/31/17839 Imaging Last Impressions Head CT 05/27/172312 Signed Impressions: Service Date/Time: Saturday, May 27, 2017 23:18 - CONCLUSION: Atrophy. No evidence of acute intracranial pathology. Lorenzo Wang MD Chest X-Ray 05/27/172312 Signed Impressions: Service Date/Time: Saturday, May 27, 2017 23:18 - CONCLUSION: 1. Cardiomegaly. No acute pulmonary disease. Lorenzo Wang MD Objective Remarks GENERAL: No distress. SKIN: No rashes, ecchymoses or lesions. Cool and dry. HEAD: Atraumatic. Normocephalic. No temporal or scalp tenderness. EYES: Pupils equal round and reactive. Extraocular motions intact. No scleral icterus. No injection or drainage. ENT: Nose without bleeding, purulent drainage or septal hematoma. Throat without erythema, tonsillar hypertrophy or exudate. Uvula midline. Airway patent. NECK: Trachea midline. No JVD or lymphadenopathy. Supple, nontender, no meningeal signs. CARDIOVASCULAR: Regular rate and rhythm without murmurs, gallops, or rubs. RESPIRATORY: Clear to auscultation. Breath sounds equal bilaterally. No wheezes , rales, or rhonchi. GASTROINTESTINAL: Abdomen soft, non-tender, nondistended. No hepato-splenomegaly , or palpable masses. No guarding. : Mendoza in place with clear urine MUSCULOSKELETAL: Extremities without clubbing, cyanosis, or edema. No effusion or edema noted. NEUROLOGICAL: Awake and alert. Cranial nerves II through XII intact. Motor and sensory grossly within normal limits. Normal speech. A&O to self. PSYCH: Flattened affect. Medications and IVs Current Medications Medications (Trade) Dose Ordered Sig/Juan Route Start Time Stop Time Status Last Admin (NS Flush) 2 ml UNSCH PRN IV FLUSH 05/28/17 03:15 (NS Flush) 2 ml BID IV FLUSH 05/28/17 09:00 05/30/17 21:25 (Tylenol) 650 mg Q4H PRN PO 05/28/17 03:15 (Zofran Inj) 4 mg Q6H PRN IVP 05/28/17 03:15 (Narcan Inj) 0.4 mg UNSCH PRN IV PUSH 05/28/17 03:15 Sodium Chloride 1,000 ml @ 70 mls/hr [id number] IV 05/28/17 03:30 05/31/17 03:43 (Heparin Inj) 5,000 units Q12HR SQ 05/28/17 09:00 05/31/17 10:03 (Cardura) 4 mg HS PO 05/28/17 21:00 05/30/17 21:27 (Breo Ellipta 100-25 Inh) 1 puff DAILY INH 05/29/17 10:45 05/31/17 10:02 (Folate) 1 mg DAILY PO 05/29/17 10:45 05/31/17 10:03 (Flomax) 0.4 mg DAILY PO 05/29/17 10:45 05/31/17 10:03 (NovoLOG SUPPLEMENTAL SCALE) 1 ACHS SLIDING SCALE SQ 05/29/17 12:00 05/31/17 13:44 (Duoneb Neb) 1 ampule Q2HR NEB PRN NEB 05/29/17 11:00 (ASP Crit: Doc ESBL, MDR A baumannii or P aer) 1 UNSCH X1 PRN .XX 05/30/17 19:30 05/31/17 19:29 ([facility] [place] [facility] Information) 1 UNSCH X1 PRN XX 05/30/17 19:30 05/31/17 19:29 Meropenem 1000 mg/ Sodium Chloride 100 ml @ 200 mls/hr Q12HR IV 05/30/17 21:00 05/31/17 10:02 (Levemir Inj) 15 units BID SQ 05/31/17 09:09 05/31/17 10:02 A/P Assessment and Plan 72-year-old male with a past medical history significant for hypertension, type 2 diabetes mellitus, hyperlipidemia, recent kidney failure requiring dialysis currently with indwelling catheter presents to the emergency department with altered mental status. Patient was found to be hyperkalemic with a urinary tract infection. He was recently treated for C. difficile, repeat C. difficile toxin negative. AMS CT head negative for acute process. Per family, patient's mental status waxes and wanes. Has had multiple infections and renal failure recently. Suspect secondary to UTI. TSH normal. ABG negative for CO2 retention. - antibiotics. - PT/ OT/ ST. - neuro checks. Hyperkalemia K+ 6.2. S/p calcium gluconate, albuterol, Insulin, D50 and Kayexalate. - Recheck BMP. Resolved. UTI Patient with chronic Mendoza, followed by urology at the [place]. Culture growing ESBL e coli and pseudomonas. ID consult appreciated. - Zosyn switched to meropenem per ID. - urology consult requested. URI Creatinine now at baseline. - D/c IVFs. Recent C. difficile colitis Status post treatment. Repeat C. difficile negative. - resolved. Hypertension Well controlled. - Continue Cardura, atenolol. Hold furosemide. Type 2 diabetes mellitus On Lantus 30 units daily at bedtime. - SSI. - add Levemir 15 units HS. PPx: Heparin Discharge Planning Awaiting clinical improvement Tushar Moody DO May 31, 2017 14:36
[2017-05-31] MEDS: DOXAZOSIN MESYLATE 4 MG TAB PO SCH (22:53)
[2017-06-01] VITALS (9 sets, daily range): BP systolic 114–137; BP diastolic 54–72; PULSE 79–112; RESP 16–20; TEMP 95.5–99.2; O2SAT 90–96
[2017-06-01] MEDS: INSULIN ASPART SUPPLEMENTAL SCALE SQ SCH ×4 (08:00→20:46)
[2017-06-01] MEDS: SODIUM CHLORIDE 0.9% FLUSH 10 ML FLUSH IV FLUSH SCH ×2 (09:00→21:00)
[2017-06-01] MEDS: INSULIN DETEMIR 100 UNITS/ML VIAL SQ SCH ×2 (09:00→22:01)
[2017-06-01] MEDS: FOLIC ACID 1 MG TAB PO SCH (09:04)
[2017-06-01] MEDS: TAMSULOSIN HCL 0.4 MG CAP PO SCH (09:04)
[2017-06-01] MEDS: HEPARIN SODIUM - SQ 10,000 UNITS/ML VIAL SQ SCH ×2 (09:05→20:46)
[2017-06-01] MEDS: FLUTICASONE 100 MCG/VILANTEROL 25 MCG INHALER INH SCH (09:12)
[2017-06-01] MEDS: MEROPENEM INJ 1,000 MG in SODIUM CHLORIDE 0.9% INJ 100 ML IV SCH (09:43)
--- NOTE | 2017-06-01 14:25 | HHI.IDPN ---
Subjective Subjective Remarks pt is afebrile Antibiotics meropenem Allergies: Coded Allergies: No Known Allergies (Unverified , 11/16/16) Objective . Vital Signs Date Time Temp Pulse Resp B/P (MAP) Pulse Ox O2 Delivery O2 Flow Rate FiO2 06/01/17 12:00 96.9 102 16 137/57 (83) 91 06/01/17 07:32 98.6 103 20 114/54 (74) 93 06/01/17 05:14 99.2 111 19 115/59 (77) 91 06/01/17 04:13 105 06/01/17 00:09 97.9 112 19 132/72 (92) 93 05/31/17 23:45 107 05/31/17 20:40 98.0 130 19 135/63 (87) 93 05/31/17 20:16 99 05/31/17 16:50 97.8 105 20 134/64 (87) 92 . Laboratory Tests Test 05/31/17 08:40 White Blood Count 8.5 TH/MM3 Red Blood Count 3.97 MIL/MM3 Hemoglobin 10.7 GM/DL Hematocrit 33.4 % Mean Corpuscular Volume 84.3 FL Mean Corpuscular Hemoglobin 27.0 PG Mean Corpuscular Hemoglobin Concent 32.1 % Red Cell Distribution Width 18.9 % Platelet Count 195 TH/MM3 Mean Platelet Volume 8.7 FL Laboratory Tests Test 05/31/17 08:40 Blood Urea Nitrogen 22 MG/DL Creatinine 1.47 MG/DL Random Glucose 108 MG/DL Calcium Level 8.3 MG/DL Magnesium Level 2.0 MG/DL Sodium Level 138 MEQ/L Potassium Level 4.0 MEQ/L Chloride Level 112 MEQ/L Carbon Dioxide Level 17.8 MEQ/L Anion Gap 8 MEQ/L Estimat Glomerular Filtration Rate 47 ML/MIN Imaging Last Impressions Head CT 05/27/172312 Signed Impressions: Service Date/Time: Saturday, May 27, 2017 23:18 - CONCLUSION: Atrophy. No evidence of acute intracranial pathology. Lorenzo Wang MD Chest X-Ray 05/27/172312 Signed Impressions: Service Date/Time: Saturday, May 27, 2017 23:18 - CONCLUSION: 1. Cardiomegaly. No acute pulmonary disease. Lorenzo Wang MD Physical Exam CONSTITUTIONAL/GENERAL: This is an adequately nourished patient, in no apparent distress. TUBES/LINES/DRAINS: SKIN: No jaundice, rashes, or lesions. Skin temperature appropriate. Not diaphoretic. EYES: Pupils equal and round and reactive. Extraocular motions intact. No scleral icterus. No injection or drainage. Fundi not examined. ENT: Hearing grossly normal. Nose without bleeding or purulent drainage. Throat without visible erythema, exudates, masses, or lesions. CARDIOVASCULAR: Regular rate and rhythm without murmurs, gallops, or rubs. No JVD. Peripheral pulses symmetric. RESPIRATORY/CHEST: Symmetric, unlabored respirations. Clear to auscultation. Breath sounds equal bilaterally. No wheezes, rales, or rhonchi. GASTROINTESTINAL: Abdomen soft, non-tender, nondistended. No hepato-splenomegaly , or palpable masses. No guarding. Bowel sounds present. GENITOURINARY: Without palpable bladder distension. Chan catheter in place. with clear yellow urine MUSCULOSKELETAL: Extremities without clubbing, cyanosis, or edema. No joint tenderness or effusion noted. No calf tenderness. No mottling or clubbing. NEUROLOGICAL: Lethargic, arousable COnfused; oriented x 1 only Moves all extremities. PSYCHIATRIC: calm Assessment & Plan Remarks Assessment and Plan Assessment and Plan UTI, ESBL+ E.coli, PSAE yChronic chan Diarrea, abx-associated with h/o C.diff - - c.diff neg dc meropenem start Ertapenem + cipro Cassidy Salazar MD Jun 01, 2017 14:25
[2017-06-01] MEDS ORDERED: MISCELLANEOUS PHARMACY INFORMATION XX PRN (14:30)
[2017-06-01] MEDS ORDERED: ASP: Documented ESBL, MDR A baumannii or P. aeruginosa PRN (14:30)
--- NOTE | 2017-06-01 14:34 | HHI.PR ---
Subjective Remarks The pt was tired. He had no acute complaints. Objective Vitals Vital Signs Date Time Temp Pulse Resp B/P (MAP) Pulse Ox O2 Delivery O2 Flow Rate FiO2 06/01/17 12:00 96.9 102 16 137/57 (83) 91 06/01/17 07:32 98.6 103 20 114/54 (74) 93 06/01/17 05:14 99.2 111 19 115/59 (77) 91 06/01/17 04:13 105 06/01/17 00:09 97.9 112 19 132/72 (92) 93 05/31/17 23:45 107 05/31/17 20:40 98.0 130 19 135/63 (87) 93 05/31/17 20:16 99 05/31/17 16:50 97.8 105 20 134/64 (87) 92 I/O 05/31/17 05/31/17 05/31/17 06/01/17 06/01/17 06/01/17 07:00 15:00 23:00 07:00 15:00 23:00 Intake Total 673 ml Output Total 1000 ml 800 ml 1000 ml Balance -1000 ml 673 ml -800 ml -1000 ml IV Total 673 ml Output Urine Total 1000 ml 800 ml 1000 ml # Voids 1 # Bowel Movements 1 Result Diagram: 05/31/1740 05/31/17839 Imaging Last Impressions Head CT 05/27/172312 Signed Impressions: Service Date/Time: Saturday, May 27, 2017 23:18 - CONCLUSION: Atrophy. No evidence of acute intracranial pathology. Lorenzo Wang MD Chest X-Ray 05/27/172312 Signed Impressions: Service Date/Time: Saturday, May 27, 2017 23:18 - CONCLUSION: 1. Cardiomegaly. No acute pulmonary disease. Lorenzo Wang MD Objective Remarks GENERAL: No distress. SKIN: No rashes, ecchymoses or lesions. Cool and dry. HEAD: Atraumatic. Normocephalic. No temporal or scalp tenderness. EYES: Pupils equal round and reactive. Extraocular motions intact. No scleral icterus. No injection or drainage. ENT: Nose without bleeding, purulent drainage or septal hematoma. Throat without erythema, tonsillar hypertrophy or exudate. Uvula midline. Airway patent. NECK: Trachea midline. No JVD or lymphadenopathy. Supple, nontender, no meningeal signs. CARDIOVASCULAR: Regular rate and rhythm without murmurs, gallops, or rubs. RESPIRATORY: Clear to auscultation. Breath sounds equal bilaterally. No wheezes , rales, or rhonchi. GASTROINTESTINAL: Abdomen soft, non-tender, nondistended. No hepato-splenomegaly , or palpable masses. No guarding. : Mendoza in place with clear urine MUSCULOSKELETAL: Extremities without clubbing, cyanosis, or edema. No effusion or edema noted. NEUROLOGICAL: Awake and alert. Cranial nerves II through XII intact. Motor and sensory grossly within normal limits. Normal speech. A&O to self. PSYCH: Flattened affect. Medications and IVs Current Medications Medications (Trade) Dose Ordered Sig/Juan Route Start Time Stop Time Status Last Admin (NS Flush) 2 ml UNSCH PRN IV FLUSH 05/28/17 03:15 (NS Flush) 2 ml BID IV FLUSH 05/28/17 09:00 06/01/17 09:00 (Tylenol) 650 mg Q4H PRN PO 05/28/17 03:15 (Zofran Inj) 4 mg Q6H PRN IVP 05/28/17 03:15 (Narcan Inj) 0.4 mg UNSCH PRN IV PUSH 05/28/17 03:15 (Heparin Inj) 5,000 units Q12HR SQ 05/28/17 09:00 06/01/17 09:05 (Cardura) 4 mg HS PO 05/28/17 21:00 05/31/17 22:53 (Breo Ellipta 100-25 Inh) 1 puff DAILY INH 05/29/17 10:45 06/01/17 09:12 (Folate) 1 mg DAILY PO 05/29/17 10:45 06/01/17 09:04 (Flomax) 0.4 mg DAILY PO 05/29/17 10:45 06/01/17 09:04 (NovoLOG SUPPLEMENTAL SCALE) 1 ACHS SLIDING SCALE SQ 05/29/17 12:00 05/31/17 22:55 (Duoneb Neb) 1 ampule Q2HR NEB PRN NEB 05/29/17 11:00 (Levemir Inj) 15 units BID SQ 05/31/17 09:09 06/01/17 09:00 ([place] 5-325 Mg) 1 tab Q4H PRN PO 05/31/17 14:45 (Vitamin D3) 1,000 units DAILY PO 06/01/17 14:30 (ASP Crit: Doc ESBL, MDR A baumannii or P aer) 1 UNSCH X1 PRN XX 06/01/17 14:30 06/02/17 14:29 UNV ([facility]) 1 UNSCH X1 PRN XX 06/01/17 14:30 06/02/17 14:29 UNV Ertapenem 1000 mg/ Sodium Chloride 100 ml @ 200 mls/hr Q24H IV 06/01/17 14:30 UNV (Cipro) 500 mg Q12HR PO 06/01/17 21:00 UNV A/P Assessment and Plan 72-year-old male with a past medical history significant for hypertension, type 2 diabetes mellitus, hyperlipidemia, recent kidney failure requiring dialysis currently with indwelling catheter presents to the emergency department with altered mental status. Patient was found to be hyperkalemic with a urinary tract infection. He was recently treated for C. difficile, repeat C. difficile toxin negative. AMS CT head negative for acute process. Per family, patient's mental status waxes and wanes. Has had multiple infections and renal failure recently. Suspect secondary to UTI. TSH normal. ABG negative for CO2 retention. - antibiotics. - PT/ OT/ ST. - neuro checks. - IVFs. UTI Patient with chronic Mendoza, followed by urology at the [place]. Culture growing ESBL e coli and pseudomonas. ID consult appreciated. - Zosyn switched to meropenem per ID. - urology consult requested. Hyperkalemia K+ 6.2. S/p calcium gluconate, albuterol, Insulin, D50 and Kayexalate. - Recheck BMP. Resolved. URI Creatinine now at baseline. - monitor as needed. Recent C. difficile colitis Status post treatment. Repeat C. difficile negative. - resolved. Hypertension Well controlled. - Continue Cardura, atenolol. Hold furosemide. Type 2 diabetes mellitus On Lantus 30 units daily at bedtime. - SSI. - add Levemir 15 units HS. PPx: Heparin Discharge Planning Awaiting clinical improvement, urology Tushar Link DO Jun 01, 2017 14:34
--- NOTE | 2017-06-01 15:16 | PD.CONS ---
HPI Service Urology Consult Requested By Primary Care Physician Unknown Diagnosis: Past Family Social History Allergies: Coded Allergies: No Known Allergies (Unverified , 11/16/16) Physical Exam Vital Signs Date Time Temp Pulse Resp B/P (MAP) Pulse Ox O2 Delivery O2 Flow Rate FiO2 06/01/17 12:00 96.9 102 16 137/57 (83) 91 06/01/17 07:32 98.6 103 20 114/54 (74) 93 06/01/17 05:14 99.2 111 19 115/59 (77) 91 06/01/17 04:13 105 06/01/17 00:09 97.9 112 19 132/72 (92) 93 05/31/17 23:45 107 05/31/17 20:40 98.0 130 19 135/63 (87) 93 05/31/17 20:16 99 05/31/17 16:50 97.8 105 20 134/64 (87) 92 Physical Exam GENERAL: This is a well-nourished, well-developed patient, in no apparent distress. SKIN: No rashes, ecchymoses or lesions. Cool and dry. HEAD: Atraumatic. Normocephalic. No temporal or scalp tenderness. EYES: Pupils equal round and reactive. Extraocular motions intact. No scleral icterus. No injection or drainage. ENT: Nose without bleeding, purulent drainage or septal hematoma. Throat without erythema, tonsillar hypertrophy or exudate. Uvula midline. Airway patent. NECK: Trachea midline. No JVD or lymphadenopathy. Supple, nontender, no meningeal signs. CARDIOVASCULAR: Regular rate and rhythm without murmurs, gallops, or rubs. RESPIRATORY: Clear to auscultation. Breath sounds equal bilaterally. No wheezes , rales, or rhonchi. GASTROINTESTINAL: Abdomen soft, non-tender, nondistended. No hepato-splenomegaly , or palpable masses. No guarding. GENITOURINARY: MUSCULOSKELETAL: Extremities without clubbing, cyanosis, or edema. No joint tenderness, effusion, or edema noted. No calf tenderness. Negative Homans sign bilaterally. NEUROLOGICAL: Awake and alert. Cranial nerves II through XII intact. Motor and sensory grossly within normal limits. Five out of 5 muscle strength in all muscle groups. Normal speech. Date/Time Source Procedure Growth Status 05/27/17 23:50 Blood Peripheral Aerobic Blood Culture - Preliminary NO GROWTH IN 4 DAYS Resulted 05/27/17 23:50 Blood Peripheral Anaerobic Blood Culture - Preliminary NO GROWTH IN 4 DAYS Resulted 05/27/17 23:42 Urine Catheterized Urine Urine Culture - Final Escherichia Coli Esbl Positive Pseudomonas Aeruginosa Complete Result Diagram: 05/31/17 0840 05/31/17 0840 Imaging Last Impressions Head CT 05/27/172312 Signed Impressions: Service Date/Time: Saturday, May 27, 2017 23:18 - CONCLUSION: Atrophy. No evidence of acute intracranial pathology. Lorenzo Wang MD Chest X-Ray 05/27/172312 Signed Impressions: Service Date/Time: Saturday, May 27, 2017 23:18 - CONCLUSION: 1. Cardiomegaly. No acute pulmonary disease. Lorenzo Wang MD Assessment and Plan Problem List: (1) Urinary retention ICD Code: R33.9 - Retention of urine, unspecified Assessment and Plan Renal U/S. Continue chan catheter upon discharge. With newly diagnosed MS, will need Urodynamics as outpatient to evaluate bladder function as he may have an Atonic Neurogenic Bladder. Antibiotics per ID. Stu Elliott MD Jun 01, 2017 15:16
[2017-06-01] MEDS: ERTAPENEM INJ 1,000 MG in SODIUM CHLORIDE 0.9% INJ 100 ML IV SCH (15:59)
[2017-06-01] MEDS: CHOLECALCIFEROL (VIT D3) 1000 UNIT TAB PO SCH (16:00)
[2017-06-01] MEDS: SODIUM CHLOR 0.9% 1000 ML INJ 1,000 ML IV SCH (16:00)
--- NOTE | 2017-06-01 19:49 | RADRPT ---
EXAM DATE/TIME: 06/01/2017 18:55 [facility] COMPARISON: No previous studies available for comparison. INDICATIONS : Obstruction. MEDICAL HISTORY : Multiple sclerosis. Congestive heart failure. Hypercholesterolemia. Hypertension. COPD. Pnemonia. Gas troesophageal reflux disease. Diabetes. Depression. Urinary tract infection. SURGICAL HISTORY : None. ENCOUNTER: Initial ACUITY: 1 week PAIN SCORE: 2/10 LOCATION: Bilateral flank MEASUREMENTS: RIGHT KIDNEY: 13.0 x 6.0 x 6.2 cm LEFT KIDNEY: 12.4 x 5.4 x 6.6 cm FINDINGS: RIGHT KIDNEY: Renal cortex is normal in thickness and echotexture. No hydronephrosis, stone, or mass. LEFT KIDNEY: Renal cortex is normal in thickness and echotexture. No hydronephrosis, stone, or mass. BLADDER: Urinary bladder is totally decompressed and contains a Mendoza balloon. It is poorly evaluated. CONCLUSION: Normal examination. Jeremy Rutherford Jr., MD on June 01, 2017 at 19:47 Board Certified Radiologist. This report was verified electronically.
[2017-06-01] MEDS: DOXAZOSIN MESYLATE 4 MG TAB PO SCH (20:46)
[2017-06-01] MEDS: CIPROFLOXACIN 500 MG TAB PO SCH (20:46)
[2017-06-02 00:18] VITALS: BP 133/63; PULSE 82; RESP 17; TEMP 98.1; O2SAT 95
[2017-06-02] MEDS: SODIUM CHLOR 0.9% 1000 ML INJ 1,000 ML IV SCH ×2 (04:13→15:45)
[2017-06-02 04:24] VITALS: BP 146/86; PULSE 95; RESP 18; TEMP 98.9; O2SAT 93
[2017-06-02 05:51] LABS: BICARBONATE 21.4 MEQ/L (21.0-32.0); MAGNESIUM 1.9 MG/DL (1.5-2.5); POTASSIUM 4.1 MEQ/L (3.5-5.1)
[2017-06-02 08:00] VITALS: BP 145/67; PULSE 96; RESP 20; TEMP 98.1; O2SAT 94
[2017-06-02] MEDS: INSULIN ASPART SUPPLEMENTAL SCALE SQ SCH ×4 (08:00→20:37)
[2017-06-02] MEDS: FOLIC ACID 1 MG TAB PO SCH (10:01)
[2017-06-02] MEDS: HEPARIN SODIUM - SQ 10,000 UNITS/ML VIAL SQ SCH ×2 (10:01→20:36)
[2017-06-02] MEDS: CHOLECALCIFEROL (VIT D3) 1000 UNIT TAB PO SCH (10:01)
[2017-06-02] MEDS: CIPROFLOXACIN 500 MG TAB PO SCH ×2 (10:01→20:36)
[2017-06-02] MEDS: TAMSULOSIN HCL 0.4 MG CAP PO SCH (10:01)
[2017-06-02] MEDS: SODIUM CHLORIDE 0.9% FLUSH 10 ML FLUSH IV FLUSH SCH ×2 (10:02→20:36)
[2017-06-02] MEDS: INSULIN DETEMIR 100 UNITS/ML VIAL SQ SCH ×2 (10:02→20:36)
[2017-06-02] MEDS: FLUTICASONE 100 MCG/VILANTEROL 25 MCG INHALER INH SCH (10:02)
--- NOTE | 2017-06-02 11:55 | HHI.PR ---
Subjective Remarks Follow-up altered mental status, UTI. Patient remains confused intermittently. His family states that he remains more confused than his baseline. He reports no complaints at this time. Denies abdominal pain, nausea, vomiting. Denies chest pain or dyspnea. Objective Vitals Vital Signs Date Time Temp Pulse Resp B/P (MAP) Pulse Ox O2 Delivery O2 Flow Rate FiO2 06/02/17 08:00 98.1 96 20 145/67 (93) 94 06/02/17 04:24 98.9 95 18 146/86 (106) 93 06/02/17 00:18 98.1 82 17 133/63 (86) 95 06/01/17 22:39 104 06/01/17 20:30 97.7 79 20 129/63 (85) 96 06/01/17 19:58 90 06/01/17 16:00 95.5 99 16 122/59 (80) 90 06/01/17 12:00 96.9 102 16 137/57 (83) 91 I/O 06/01/17 06/01/17 06/01/17 06/02/17 06/02/17 06/02/17 07:00 15:00 23:00 07:00 15:00 23:00 Intake Total 100 ml 1580 ml Output Total 1000 ml 1800 ml Balance -1000 ml 100 ml -220 ml Intake Oral 580 ml IV Total 100 ml 1000 ml Output Urine Total 1000 ml 1800 ml # Bowel Movements 1 Result Diagram: 05/31/17 0840 06/02/17 0440 Imaging Last Impressions Renal Ultrasound 06/01/17 0000 Signed Impressions: Service Date/Time: Thursday, June 01, 2017 18:55 - CONCLUSION: Normal examination. Jeremy Rutherford Jr., MD Head CT 05/27/172312 Signed Impressions: Service Date/Time: Saturday, May 27, 2017 23:18 - CONCLUSION: Atrophy. No evidence of acute intracranial pathology. Lorenzo Wang MD Chest X-Ray 05/27/172312 Signed Impressions: Service Date/Time: Saturday, May 27, 2017 23:18 - CONCLUSION: 1. Cardiomegaly. No acute pulmonary disease. Lorenzo Wang MD Objective Remarks General: Elderly male in no acute distress. Heart: Regular rate and rhythm. No murmur. Lungs: Clear to auscultation bilaterally. No wheezes, rales, or rhonchi. Breathing is nonlabored. Abdomen: Soft, nontender, nondistended. Extremities: No lower extremity edema. Psych: Alert, oriented to self, but somewhat confused. Procedures None Urinary Catheter: Yes Assessment to: Continue Mendoza insert reason: Obstruction/Retention Vascular Central Line Catheter: No A/P Assessment and Plan 1. Altered mental status: Possibly encephalopathy secondary to UTI, however patient's family states that this has been ongoing prior to this hospitalization. Head CT is negative. We'll request neurology evaluation. 2. UTI: Urine culture growing ESBL Escherichia coli and Pseudomonas. Appreciate infectious disease recommendations. Continue antibiotics. 3. Urinary retention: Appreciate urology recommendations. Mendoza catheter to remain in place. 4. Hyperkalemia: Resolved. 5. Acute kidney injury: Improving. 6. Recent C. difficile colitis: Status post treatment. Repeat C. difficile study is negative. 7. Hypertension: Blood pressure is well controlled. Continue Cardura, atenolol. Furosemide on hold. 8. Diabetes mellitus type 2: Continue Levemir. Monitor Accu-Cheks and cover with sliding scale insulin. 9. DVT prophylaxis: Heparin. Jonathan Riley MD Jun 02, 2017 11:55
[2017-06-02 12:00] VITALS: BP 128/62; PULSE 102; RESP 20; TEMP 96.7; O2SAT 97
[2017-06-02] MEDS: ERTAPENEM INJ 1,000 MG in SODIUM CHLORIDE 0.9% INJ 100 ML IV SCH (15:41)
[2017-06-02 16:00] VITALS: BP 144/70; PULSE 98; RESP 20; TEMP 98; O2SAT 92
[2017-06-02] MEDS: ACETAMINOPHEN/HYDROcodone 325 MG/5 MG TAB PO PRN (16:23)
[2017-06-02 20:00] VITALS: BP 140/65; PULSE 73; PULSE 83; RESP 22; TEMP 96.9; O2SAT 95
[2017-06-02] MEDS: DOXAZOSIN MESYLATE 4 MG TAB PO SCH (20:36)
[2017-06-03] VITALS: BP 129/59; PULSE 98; RESP 20; TEMP 98.3; O2SAT 97
[2017-06-03 04:00] VITALS: BP 133/61; PULSE 98; RESP 20; TEMP 96.8; O2SAT 95
[2017-06-03 05:19] LABS: AUTOMATED NEUTROPHIL # 5.2 TH/MM3 (1.8-7.7); BASOPHIL % 0.4 % (0.0-2.0); EOSINOPHIL # 0.1 TH/MM3 (0-0.4); EOSINOPHIL % 1.3 % (0.0-4.0); HEMATOCRIT 31.6 % (39.0-51.0); HEMO FLAGS DIFF FINAL; LYMPH % 21.5 % (9.0-44.0); LYMPHOCYTE # 1.7 TH/MM3 (1.0-4.8); MEAN CELL VOLUME 82.9 FL (80.0-100.0); MEAN CORPUSCULAR HEMOGLOBIN 26.9 PG (27.0-34.0); MEAN CORPUSCULAR HGB CONC 32.5 % (32.0-36.0); MONO % 9.9 % (0.0-8.0); NEUT % 66.9 % (16.0-70.0); PLATELET COUNT 205 TH/MM3 (150-450); RED BLOOD COUNT 3.82 MIL/MM3 (4.50-5.90); RED CELL DISTRIBUTION WIDTH 18.3 % (11.6-17.2); WHITE BLOOD COUNT 7.8 TH/MM3 (4.0-11.0)
[2017-06-03 05:36] LABS: POTASSIUM 4.1 MEQ/L (3.5-5.1)
[2017-06-03 08:00] VITALS: BP 120/56; PULSE 95; RESP 17; TEMP 95.3; O2SAT 97
[2017-06-03] MEDS ORDERED: GLUCAGON 1 MG/ML VIAL OTHER PRN (08:00)
[2017-06-03] MEDS: INSULIN ASPART SUPPLEMENTAL SCALE SQ SCH ×4 (08:00→20:02)
[2017-06-03] MEDS ORDERED: DEXTROSE 50% IN WATER 50 ML VIAL(D50) IV PUSH PRN (08:00)
[2017-06-03] MEDS: CHOLECALCIFEROL (VIT D3) 1000 UNIT TAB PO SCH (10:02)
[2017-06-03] MEDS: TAMSULOSIN HCL 0.4 MG CAP PO SCH (10:02)
[2017-06-03] MEDS: CIPROFLOXACIN 500 MG TAB PO SCH ×2 (10:02→20:01)
[2017-06-03] MEDS: FOLIC ACID 1 MG TAB PO SCH (10:02)
[2017-06-03] MEDS: SODIUM CHLORIDE 0.9% FLUSH 10 ML FLUSH IV FLUSH SCH ×2 (10:03→20:01)
[2017-06-03] MEDS: INSULIN DETEMIR 100 UNITS/ML VIAL SQ SCH (10:03)
[2017-06-03] MEDS: HEPARIN SODIUM - SQ 10,000 UNITS/ML VIAL SQ SCH ×2 (10:03→20:01)
[2017-06-03] MEDS: FLUTICASONE 100 MCG/VILANTEROL 25 MCG INHALER INH SCH (10:03)
[2017-06-03 12:00] VITALS: BP 128/60; PULSE 85; RESP 17; TEMP 96.2; O2SAT 90
--- NOTE | 2017-06-03 13:08 | MB ---
cc: AUSTIN FERNANDES DATE OF CONSULTATION: 06/03/2017 REASON FOR CONSULTATION: Mental status change. HISTORY OF PRESENT ILLNESS Mr. Montiel is a 72-year-old man, long-term resident, who was noted to be confused with alteration of mental status and was brought to the emergency room. The patient has since been found to have a urinary tract infection for which he has been receiving antibiotic therapy. However, he remains confused. According to the chart, he does have a history of multiple sclerosis. PAST MEDICAL HISTORY: 1. History of C. difficile colitis. 2. Congestive heart failure. 3. Depression. 4. Multiple sclerosis. 5. Hyperlipidemia. 6. COPD. 7. Hypertension. CURRENT MEDICATIONS: 1. Cipro. 2. Ertapenem. 3. Hydrocodone p.r.n. 4. Levemir insulin p.r.n. 5. Tamsulosin. 6. Cardura. 7. Heparin 5000 units subcu b.i.d. 8. Tylenol 9. Zofran NEUROLOGIC EXAMINATION Blood pressure is 128/60, pulse 85, respiratory rate is 17, temperature is 96.2 degrees. Higher cortical function. Patient is lethargic but easy to arouse. He is disoriented to date and place. He has poor recent and remote memory. He can follow simple commands. Cranial nerves are intact. Motor exam, he has generalized weakness but no focal deficits. Reflexes are 2+ symmetric with no Babinski present. CT scan of the brain shows atrophy but no acute change. LABORATORY DATA White count 7800, hemoglobin 10.3, hematocrit 31.6%, platelet count 205,000. Sodium is 141, potassium 4.1, chloride 111, CO2 24, BUN 20, creatinine 1.09, GFR is a 66, glucose 54, calcium 8.1. Urinalysis pH is 6.5. Specific gravity 1.013, protein 30, 74 RBCs, 169 WBCs. IMPRESSION Probable encephalopathy related to urinary tract infection. However, rule out multiple sclerosis exacerbation. I would like to obtain MRI of the brain for further evaluation. Because of the no load GFR will need to this without contrast. We will also obtain an EEG, additional labs including a thyroid panel and serum ammonia level. MD RIKY PfeifferS/SAÚL /12:49 PM /1:04 PM
--- NOTE | 2017-06-03 14:34 | HHI.PR ---
Subjective Remarks Follow up AMS, UTI. Patient is lethargic, but does eventually awaken and answer questions. Denies complaints at this time. No chest pain, dyspnea, nausea, vomiting. Objective Vitals Vital Signs Date Time Temp Pulse Resp B/P (MAP) Pulse Ox O2 Delivery O2 Flow Rate FiO2 06/03/17 12:00 96.2 85 17 128/60 (82) 90 06/03/17 08:00 95.3 95 17 120/56 (77) 97 06/03/17 04:00 96.8 98 20 133/61 (85) 95 06/03/17 00:00 98.3 98 20 129/59 (82) 97 06/02/17 20:00 73 06/02/17 20:00 96.9 83 22 140/65 (90) 95 06/02/17 16:00 98.0 98 20 144/70 (94) 92 I/O 06/02/17 06/02/17 06/02/17 06/03/17 06/03/17 06/03/17 07:00 15:00 23:00 07:00 15:00 23:00 Intake Total 1580 ml 2491 ml 120 ml Output Total 1800 ml 1250 ml 800 ml Balance -220 ml 1241 ml -680 ml Intake Oral 580 ml 600 ml 120 ml IV Total 1000 ml 1891 ml Output Urine Total 1800 ml 1250 ml 800 ml # Bowel Movements 1 1 0 Result Diagram: 06/03/17 0415 06/03/17 0415 Imaging Last Impressions Renal Ultrasound 06/01/17 0000 Signed Impressions: Service Date/Time: Thursday, June 01, 2017 18:55 - CONCLUSION: Normal examination. Jeremy Rutherford Jr., MD Head CT 05/27/172312 Signed Impressions: Service Date/Time: Saturday, May 27, 2017 23:18 - CONCLUSION: Atrophy. No evidence of acute intracranial pathology. Lorenzo Wang MD Chest X-Ray 05/27/172312 Signed Impressions: Service Date/Time: Saturday, May 27, 2017 23:18 - CONCLUSION: 1. Cardiomegaly. No acute pulmonary disease. Lorenzo Wang MD Objective Remarks General: Elderly male in no acute distress. Heart: Regular rate and rhythm. No murmur. Lungs: Clear to auscultation bilaterally. No wheezes, rales, or rhonchi. Breathing is nonlabored. Abdomen: Soft, nontender, nondistended. Extremities: No lower extremity edema. Psych: Lethargic, but does awaken and answer some questions. Somewhat confused. Procedures None Urinary Catheter: No Vascular Central Line Catheter: No A/P Assessment and Plan 1. Altered mental status: Possibly encephalopathy secondary to UTI, however patient's family states that this has been ongoing prior to this hospitalization. Head CT is negative. Appreciate neurology recommendations. MRI , EEG, labs ordered. 2. UTI: Urine culture growing ESBL Escherichia coli and Pseudomonas. Appreciate infectious disease recommendations. Continue antibiotics. 3. Urinary retention: Appreciate urology recommendations. Mendoza catheter to remain in place. 4. Hyperkalemia: Resolved. 5. Acute kidney injury: Improving. 6. Recent C. difficile colitis: Status post treatment. Repeat C. difficile study is negative. 7. Hypertension: Blood pressure is well controlled. Continue Cardura, atenolol. Furosemide on hold. 8. Diabetes mellitus type 2: Monitor Accu-Cheks and cover with sliding scale insulin. Glucose has been low. Patient has poor oral intake today. Levemir on hold. 9. DVT prophylaxis: Heparin. Jonathan Riley MD Jun 03, 2017 14:34
[2017-06-03] MEDS: ERTAPENEM INJ 1,000 MG in SODIUM CHLORIDE 0.9% INJ 100 ML IV SCH (15:17)
[2017-06-03 16:00] VITALS: BP 136/63; PULSE 94; RESP 17; TEMP 96.9; O2SAT 91
[2017-06-03 17:41] LABS: FREE T4 0.98 NG/DL (0.76-1.46)
[2017-06-03 20:00] VITALS: BP 145/65; PULSE 104; RESP 20; TEMP 97.9; O2SAT 90
[2017-06-03] MEDS: DOXAZOSIN MESYLATE 4 MG TAB PO SCH (20:01)
[2017-06-04] VITALS (8 sets, daily range): BP systolic 111–141; BP diastolic 56–64; PULSE 75–120; RESP 17–20; TEMP 96.9–101.5; O2SAT 90–95
[2017-06-04 06:58] LABS: AUTOMATED NEUTROPHIL # 3.8 TH/MM3 (1.8-7.7); BASOPHIL % 0.8 % (0.0-2.0); EOSINOPHIL # 0.1 TH/MM3 (0-0.4); EOSINOPHIL % 1.5 % (0.0-4.0); HEMATOCRIT 30.8 % (39.0-51.0); HEMO FLAGS DIFF FINAL; LYMPH % 27.7 % (9.0-44.0); LYMPHOCYTE # 1.8 TH/MM3 (1.0-4.8); MEAN CELL VOLUME 82.5 FL (80.0-100.0); MEAN CORPUSCULAR HEMOGLOBIN 26.8 PG (27.0-34.0); MEAN CORPUSCULAR HGB CONC 32.5 % (32.0-36.0); MONO % 9.8 % (0.0-8.0); NEUT % 60.2 % (16.0-70.0); PLATELET COUNT 217 TH/MM3 (150-450); RED BLOOD COUNT 3.73 MIL/MM3 (4.50-5.90); RED CELL DISTRIBUTION WIDTH 18.3 % (11.6-17.2); WHITE BLOOD COUNT 6.4 TH/MM3 (4.0-11.0)
[2017-06-04 07:25] LABS: BICARBONATE 24.3 MEQ/L (21.0-32.0); POTASSIUM 4.1 MEQ/L (3.5-5.1)
[2017-06-04] MEDS: INSULIN ASPART SUPPLEMENTAL SCALE SQ SCH ×4 (08:00→21:12)
[2017-06-04] MEDS: TAMSULOSIN HCL 0.4 MG CAP PO SCH (08:51)
[2017-06-04] MEDS: CHOLECALCIFEROL (VIT D3) 1000 UNIT TAB PO SCH (08:51)
[2017-06-04] MEDS: FOLIC ACID 1 MG TAB PO SCH (08:51)
[2017-06-04] MEDS: CIPROFLOXACIN 500 MG TAB PO SCH ×2 (08:51→20:41)
[2017-06-04] MEDS: HEPARIN SODIUM - SQ 10,000 UNITS/ML VIAL SQ SCH ×2 (08:52→20:42)
[2017-06-04] MEDS: FLUTICASONE 100 MCG/VILANTEROL 25 MCG INHALER INH SCH (08:53)
[2017-06-04] MEDS: SODIUM CHLORIDE 0.9% FLUSH 10 ML FLUSH IV FLUSH SCH ×2 (08:54→20:42)
[2017-06-04] MEDS: ACETAMINOPHEN/HYDROcodone 325 MG/5 MG TAB PO PRN (08:59)
--- NOTE | 2017-06-04 12:03 | HHI.PR ---
Subjective Remarks Follow-up altered mental status, UTI. The patient has no specific complaints at this time. He is somewhat lethargic. No events reported by nursing. He denies pain currently. Objective Vitals Vital Signs Date Time Temp Pulse Resp B/P (MAP) Pulse Ox O2 Delivery O2 Flow Rate FiO2 06/04/17 08:03 98.6 96 20 127/60 (82) 95 06/04/17 04:00 97.8 96 20 141/63 (89) 94 06/04/17 00:00 97.8 113 20 111/56 (74) 90 06/03/17 20:00 97.9 104 20 145/65 (91) 90 06/03/17 16:00 96.9 94 17 136/63 (87) 91 06/03/17 12:00 96.2 85 17 128/60 (82) 90 I/O 06/03/17 06/03/17 06/03/17 06/04/17 06/04/17 06/04/17 07:00 15:00 23:00 07:00 15:00 23:00 Intake Total 120 ml 220 ml 240 ml Output Total 800 ml 775 ml 650 ml Balance -680 ml -555 ml -650 ml 240 ml Intake Oral 120 ml 120 ml 240 ml IV Total 100 ml Output Urine Total 800 ml 775 ml 650 ml # Bowel Movements 0 0 Result Diagram: 06/04/1714 06/04/17613 Imaging Last Impressions Renal Ultrasound 06/01/17 0000 Signed Impressions: Service Date/Time: Thursday, June 01, 2017 18:55 - CONCLUSION: Normal examination. Jeremy Rutherford Jr., MD Head CT 05/27/172312 Signed Impressions: Service Date/Time: Saturday, May 27, 2017 23:18 - CONCLUSION: Atrophy. No evidence of acute intracranial pathology. Lorenzo Wang MD Chest X-Ray 05/27/172312 Signed Impressions: Service Date/Time: Saturday, May 27, 2017 23:18 - CONCLUSION: 1. Cardiomegaly. No acute pulmonary disease. Lorenzo Wang MD Objective Remarks General: Elderly male in no acute distress. Heart: Regular rate and rhythm. No murmur. Lungs: Clear to auscultation bilaterally. No wheezes, rales, or rhonchi. Breathing is nonlabored. Abdomen: Soft, nontender, nondistended. Extremities: No lower extremity edema. Psych: Lethargic, but is awake enough to answer some questions. Somewhat confused. Procedures None Urinary Catheter: Yes Assessment to: Continue Mendoza insert reason: Obstruction/Retention Vascular Central Line Catheter: No A/P Assessment and Plan 1. Altered mental status: Possibly encephalopathy secondary to UTI, however patient's family states that this has been ongoing prior to this hospitalization. Head CT is negative. Appreciate neurology recommendations. MRI , EEG, labs ordered. 2. UTI: Urine culture growing ESBL Escherichia coli and Pseudomonas. Appreciate infectious disease recommendations. Continue antibiotics. UTI is associated with chronic indwelling Mendoza catheter. 3. Urinary retention: Appreciate urology recommendations. Mendoza catheter to remain in place. 4. Hyperkalemia: Resolved. 5. Acute kidney injury: Improving. 6. Recent C. difficile colitis: Status post treatment. Repeat C. difficile study is negative. 7. Hypertension: Blood pressure is well controlled. Continue Cardura, atenolol. Furosemide on hold. 8. Diabetes mellitus type 2: Monitor Accu-Cheks and cover with sliding scale insulin. Glucose has been low. Patient has poor oral intake. Levemir on hold. 9. DVT prophylaxis: Heparin. Discharge Planning Pending further neurologic workup. Will likely need SNF placement. Jonathan Riley MD Jun 04, 2017 12:02
[2017-06-04] MEDS: ERTAPENEM INJ 1,000 MG in SODIUM CHLORIDE 0.9% INJ 100 ML IV SCH (15:00)
--- NOTE | 2017-06-04 16:54 | RADRPT ---
EXAM DATE/TIME: 06/04/2017 16:08 [facility] COMPARISON: No previous studies available for comparison. INDICATIONS : Multiple sclerosis MEDICAL HISTORY : Hypertension. Diabetes mellitus type 2. Chronic obstructive pulmonary disease. CHF. SURGICAL HISTORY : None. ENCOUNTER: Initial ACUITY: 2 day PAIN SCORE: 4/10 LOCATION: Bilateral cranial TECHNIQUE: Multiplanar, multisequence MRI of the brain was performed without contrast. FINDINGS: There is marked central and cortical atrophy. There is dilatation of intraventricular space and sulc al spaces. Marked periventricular white matter changes are evident some would be consistent with bur eric out MS. There are no extra-axial fluid collection appreciated. There is no parenchymal hemorrhage Posterior fossa is unremarkable. Orbits and sinuses are unremarkable. CONCLUSION: Marked central and cortical atrophy with significant periventricular white matter suleman nges, nonspecific but could be related to a demyelinating process. Chavo Salvador MD FACR on June 04, 2017 at 16:50 Board Certified Radiologist. This report was verified electronically.
--- NOTE | 2017-06-04 18:50 | MG ---
cc: JOSEPH PHILLIPS M.D. Lab No: Date: 06/04/2017 Age: Sex: M Race: INDICATION Change in mental status. 72 years old. MEDICATIONS 1. [place]. 2. Flomax. 3. Cipro. DESCRIPTION Diffuse 6 Hz slowing is noted. The recording overall is synchronous and symmetric. At times diffuse 5 Hz rhythm is noted. No hemisphere asymmetries are noted. No epileptiform or seizure activity is seen. Photic stimulation was performed without significant posterior driving. IMPRESSION Diffuse slowing consistent with a moderate diffuse encephalopathy but no focal abnormality was noted. No seizure activity was seen. MD ROBERTO Ramos/KK /5:36 PM /6:47 PM
[2017-06-04] MEDS: DOXAZOSIN MESYLATE 4 MG TAB PO SCH (20:41)
[2017-06-05] VITALS (10 sets, daily range): BP systolic 108–141; BP diastolic 55–70; PULSE 85–110; RESP 17–20; TEMP 95.9–99.8; O2SAT 92–96
[2017-06-05] MEDS: INSULIN ASPART SUPPLEMENTAL SCALE SQ SCH ×4 (10:02→22:56)
[2017-06-05] MEDS: CHOLECALCIFEROL (VIT D3) 1000 UNIT TAB PO SCH (10:05)
[2017-06-05] MEDS: HEPARIN SODIUM - SQ 10,000 UNITS/ML VIAL SQ SCH ×2 (10:05→22:38)
[2017-06-05] MEDS: TAMSULOSIN HCL 0.4 MG CAP PO SCH (10:05)
[2017-06-05] MEDS: CIPROFLOXACIN 500 MG TAB PO SCH ×2 (10:06→22:37)
[2017-06-05] MEDS: FOLIC ACID 1 MG TAB PO SCH (10:06)
[2017-06-05] MEDS: SODIUM CHLORIDE 0.9% FLUSH 10 ML FLUSH IV FLUSH SCH ×2 (10:06→22:39)
[2017-06-05] MEDS: FLUTICASONE 100 MCG/VILANTEROL 25 MCG INHALER INH SCH (10:06)
--- NOTE | 2017-06-05 11:46 | HHI.PR ---
Subjective Remarks Follow up encephalopathy. Patient has had worsening respiratory status this morning. He is requiring Ventimask, which he keeps removing. He states that he feels somewhat short of breath. He is more alert today, but remains confused. Objective Vitals Vital Signs Date Time Temp Pulse Resp B/P (MAP) Pulse Ox O2 Delivery O2 Flow Rate FiO2 06/05/17 09:46 95 Venturi Mask 50 06/05/17 08:00 97.5 100 18 120/59 (79) 95 06/05/17 06:20 95 06/05/17 04:00 99.8 110 18 120/58 (78) 93 06/05/17 04:00 92 Venturi Mask 6.00 50 06/05/17 00:00 98.7 88 19 127/60 (82) 96 06/04/17 21:07 Nasal Cannula 2.00 06/04/17 20:00 101.5 120 17 137/64 (88) 94 06/04/17 19:53 119 06/04/17 16:00 98.0 99 20 118/60 (79) 95 06/04/17 12:00 96.9 85 18 116/59 (78) 95 I/O 06/04/17 06/04/17 06/04/17 06/05/17 06/05/17 06/05/17 07:00 15:00 23:00 07:00 15:00 23:00 Intake Total 240 ml 240 ml 50 ml Output Total 650 ml 850 ml Balance -650 ml 240 ml -610 ml 50 ml Intake Oral 240 ml 240 ml 50 ml Output Urine Total 650 ml 850 ml Result Diagram: 06/04/1714 06/04/1714 Imaging Last Impressions Brain MRI 06/04/17 0000 Signed Impressions: Service Date/Time: Sunday, June 04, 2017 16:08 - CONCLUSION: Marked central and cortical atrophy with significant periventricular white matter changes, nonspecific but could be related to a demyelinating process. Chavo Salvador MD FACR Renal Ultrasound 06/01/17 0000 Signed Impressions: Service Date/Time: Thursday, June 01, 2017 18:55 - CONCLUSION: Normal examination. Jeremy Rutherford Jr., MD Head CT 05/27/17 0341 Signed Impressions: Service Date/Time: Saturday, May 27, 2017 23:18 - CONCLUSION: Atrophy. No evidence of acute intracranial pathology. Lorenzo Wang MD Chest X-Ray 05/27/17 [id number] Signed Impressions: Service Date/Time: Saturday, May 27, 2017 23:18 - CONCLUSION: 1. Cardiomegaly. No acute pulmonary disease. Lorenzo Wang MD Objective Remarks General: Elderly male in no acute distress. Heart: Regular rate and rhythm. No murmur. Lungs: Clear to auscultation bilaterally. No wheezes, rales, or rhonchi. Breathing is somewhat labored. Abdomen: Soft, nontender, nondistended. Extremities: No lower extremity edema. Psych: Alert, confused. He is aware he is in the hospital, but does not remember which hospital. He is not oriented to year, date, city. Procedures None Urinary Catheter: No Vascular Central Line Catheter: No A/P Assessment and Plan 1. Altered mental status: Possibly encephalopathy secondary to UTI, however patient's family states that this has been ongoing prior to this hospitalization. Head CT is negative. Appreciate neurology recommendations. MRI shows marked central and cortical atrophy with significant periventricular white matter changes, which are nonspecific but could be related to a demyelinating process. EEG shows encephalopathy, but no seizure activity. 2. UTI: Urine culture growing ESBL Escherichia coli and Pseudomonas. Appreciate infectious disease recommendations. Continue antibiotics. UTI is associated with chronic indwelling Mendoza catheter. 3. Urinary retention: Appreciate urology recommendations. Mendoza catheter to remain in place. 4. Hyperkalemia: Resolved. 5. Acute kidney injury: Improving. 6. Recent C. difficile colitis: Status post treatment. Repeat C. difficile study is negative. 7. Hypertension: Blood pressure is well controlled. Continue Cardura, atenolol. Furosemide on hold. 8. Diabetes mellitus type 2: Monitor Accu-Cheks and cover with sliding scale insulin. Glucose has been low. Patient has poor oral intake. Levemir on hold. 9. DVT prophylaxis: Heparin. 10. Respiratory distress, hypoxia: Check stat chest x-ray, ABG. Patient was febrile overnight. Check blood cultures. Pulmonology consultation. Discharge Planning Pending clinical improvement. Will need SNF placement. Jonathan Riley MD Jun 05, 2017 11:46
[2017-06-05 12:11] LABS: BLOOD GAS BASE EXCESS 1.4 mmol/L (-2-2); BLOOD GAS CARBOXYHEMOGLOBIN 1.2 % (0-4); BLOOD GAS HCO3 25 mmol/L (22-26); BLOOD GAS METHEMOGLOBIN 0.7 % (0-2); BLOOD GAS O2 HGB SATURATION 96 % (90-100); BLOOD GAS OXYGEN CONTENT 18.8 Vol % (12.0-20.0); BLOOD GAS PCO2 38 mmHg (38-42); BLOOD GAS PO2 102 mmHg (61-120); BLOOD GAS TOTAL HGB 13.9 G/DL (12.0-16.0); CRITICAL VALUE NO; FIO2 50 %; LITER FLOW 6 L/M; OXYGEN DEVICE Venti Mask; TEMP CORR TO 98.6
[2017-06-05 12:12] LABS: DRAW SITE RT RADIAL; NUMBER OF ARTERIAL PUNCTURES 1; STAT NO; ULNAR PULSE PRESENT
--- NOTE | 2017-06-05 12:24 | RADRPT ---
EXAM DATE/TIME: 06/05/2017 11:45 [facility] COMPARISON: CHEST SINGLE AP, May 27, 2017, 23:18. INDICATIONS : Hypoxia. MEDICAL HISTORY : Hypertension. Diabetes mellitus type II. Chronic obstructive pulmonary disease. Congestive heart failure. SURGICAL HISTORY : None. ENCOUNTER: Subsequent ACUITY: 1 week PAIN SCORE: 0/10 LOCATION: Bilateral chest FINDINGS: A single view of the chest demonstrates stable elevation of the right hemidiaphragm. Interstitial mar kings are slightly more prominent compared to prior which could represent some degree of vascular con gestion or volume overload. No effusions. Heart size is normal. Stable degenerative spurring of the d orsal spine. CONCLUSION: 1. Stable elevation of the right hemidiaphragm. 2. No confluent infiltrate but the interstitial markings are slightly more prominent when compared to the prior. While this may be partially due to the low lung volumes, some degree of vascular congesti on or volume overload cannot be excluded. Nash Michaels MD on June 05, 2017 at 12:20 Board Certified Radiologist. This report was verified electronically.
[2017-06-05] MEDS ORDERED: FUROSEMIDE 20 MG/2 ML VIAL IV PUSH ONE (14:15)
[2017-06-05] MEDS: ERTAPENEM INJ 1,000 MG in SODIUM CHLORIDE 0.9% INJ 100 ML IV SCH (14:21)
--- NOTE | 2017-06-05 18:08 | HHI.PR ---
Addendum to Inpatient Note Additional Information pt seen today around 1645 pm full note to follow AFe oriented x 1 awake, alert Urine is clear, light yellow - cont current abx dw Cassidy Orosco MD Jun 05, 2017 18:08
--- NOTE | 2017-06-05 19:09 | MB ---
cc: OLLIE LEVIN DATE OF CONSULTATION: 06/05/2017 REASON FOR CONSULTATION: Respiratory failure. HISTORY OF PRESENT ILLNESS The patient is a 72-year-old male who was admitted through the emergency room with altered mental status, question sepsis. He is followed by infectious disease for same. His chest x-ray is clear other than elevation of the right hemidiaphragm. The patient is quite confused, does not relate adequate history or any details as to his medical status. He does live in a fdc. His MRI of the brain is with significant atrophic change suggesting underlying demyelinating disorder. The patient is on 50% inspired oxygen fraction via Venturi mask with oxygen saturation at 96%, apparently was with worsening shortness of breath in the a.m., now seems comfortable and confused. PAST MEDICAL HISTORY: 1. Diabetes mellitus. 2. Hypertension. 3. Hyperlipidemia. 4. "Overactive bladder." 5. Mood disorder, namely depression. 6. Multiple sclerosis. 7. Altered mental status. MEDICATIONS Medications include: 1. Cardura. 2. Flomax. 3. Omeprazole. 4. DuoNeb. 5. Insulin. 6. Lasix 7. Breo. 8. Folic acid. 9. Cholestyramine. 10. Metronidazole. 11. Vancomycin. 12. Loperamide. 13. Atenolol. 14. Sertraline. ALLERGIES None known to medication FAMILY HISTORY Not obtainable. REVIEW OF SYSTEMS 12-point review of systems as per HPI and past history otherwise negative. SOCIAL HISTORY He has a 60 pack-year history. He stopped smoking. He is not sure when. PHYSICAL EXAMINATION: GENERAL: The patient is alert, confused. VITAL SIGNS: Temperature 98, pulse 80, respiratory rate 20, blood pressure 140/60. Oxygen saturation 96% on 50% inspired oxygen fraction. HEENT: Unremarkable. Eyes without icterus. NECK: Without adenopathy, thyroid enlargement, central trachea. CHEST: Without dullness to percussion. Few scattered rhonchi on auscultation. CARDIAC: PMI distant. S1-S2 audible. 1/6 ejection systolic murmur left sternal border. ABDOMEN: Lax, audible bowel sounds. EXTREMITIES: No clubbing, cyanosis or edema. IMAGING STUDIES: Chest x-ray: Stable elevation of the right hemidiaphragm. No acute infiltrate identified. LABORATORY DATA: Sodium 138, potassium 107, BUN 20, creatinine 1.1. White count 6.4, hemoglobin 10, hematocrit 30, platelet count 18,000. Arterial blood gas today, pH 7.44, PCO2 38, PO2 102. IMPRESSION: 1. Hypoxemia, probably related to underlying COPD. 2. Altered mental status. 3. UTI on antibiotics. 4. Hyperkalemia. 5. Mild renal insufficiency. 6. Hypertension. 7. Diabetes mellitus. PLAN The patient is on oxygen therapy which obviously needs to be continued. Bronchodilator therapy would be appropriate. The cause of his deterioration today is not clear. It may be COPD related. However, it would be appropriate to proceed with CT angiogram for possible underlying pulmonary embolism. His kidney function is fairly adequate at this point with serum creatinine at 1.1. Bronchodilator therapy, nebulized albuterol, and Ipratropium would be appropriate. 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 A short course of steroids will be given as well. Will follow the patient's course along with you and depending on progress proceed further. His prognosis with his multiple medical problems is poor. Ollie Levin MD WWW/SAÚL /6:26 PM /6:44 PM
[2017-06-05 19:52] LABS: AUTOMATED NEUTROPHIL # 3.6 TH/MM3 (1.8-7.7); BASOPHIL % 0.6 % (0.0-2.0); EOSINOPHIL % 0.7 % (0.0-4.0); HEMATOCRIT 30.6 % (39.0-51.0); HEMO FLAGS DIFF FINAL; LYMPH % 29.3 % (9.0-44.0); LYMPHOCYTE # 1.7 TH/MM3 (1.0-4.8); MEAN CELL VOLUME 83.7 FL (80.0-100.0); MEAN CORPUSCULAR HEMOGLOBIN 26.8 PG (27.0-34.0); MEAN CORPUSCULAR HGB CONC 32.1 % (32.0-36.0); MONO % 8.5 % (0.0-8.0); NEUT % 60.9 % (16.0-70.0); PLATELET COUNT 234 TH/MM3 (150-450); RED BLOOD COUNT 3.65 MIL/MM3 (4.50-5.90); RED CELL DISTRIBUTION WIDTH 18.4 % (11.6-17.2); WHITE BLOOD COUNT 5.9 TH/MM3 (4.0-11.0)
[2017-06-05 20:21] LABS: BICARBONATE 26.3 MEQ/L (21.0-32.0); POTASSIUM 3.9 MEQ/L (3.5-5.1)
[2017-06-05] MEDS ORDERED: IOHEXOL 350 MG/ML 10 ML VIAL (for RAD DIAG) IVCONTRAST ONE (20:51)
--- NOTE | 2017-06-05 21:57 | RADRPT ---
EXAM DATE/TIME: 06/05/2017 20:38 [facility] COMPARISON: No previous studies available for comparison. INDICATIONS : Short of breath, evaluate for pulmonary emboli. IV CONTRAST: 75 cc Omnipaque 350 (iohexol) IV RADIATION DOSE: 9.62 CTDIvol (mGy) MEDICAL HISTORY : Congestive heart failure. Hypertension. Diabetes mellitus type 1.MS SURGICAL HISTORY : None. ENCOUNTER: Initial ACUITY: 1 day PAIN SCALE: 5/10 LOCATION: Chest TECHNIQUE: Volumetric scanning of the chest was performed using a pulmonary embolism protocol MIP images were re constructed. Using automated exposure control and adjustment of the mA and/or kV according to patien t size, radiation dose was kept as low as reasonably achievable to obtain optimal diagnostic quality images. DICOM format image data is available electronically for review and comparison. Follow-up recommendations for detected pulmonary nodules are based at a minimum on nodule size and pa tient risk factors according to Fleischner Society Guidelines. FINDINGS: No pulmonary embolus is seen. There is fairly diffuse consolidation seen throughout the lungs bilate rally. No effusion is seen. Significant adenopathy is not appreciated. CONCLUSION: 1. No pulmonary embolus. 2. Diffuse pulmonary consolidations. These are nonspecific. Could be secondary to diffuse processes such as edema or other diffuse processes including infection or hypersensitivity. Jas Murphy MD on June 05, 2017 at 21:51 Board Certified Radiologist. This report was verified electronically.
[2017-06-05] MEDS: DOXAZOSIN MESYLATE 4 MG TAB PO SCH (22:37)
[2017-06-05] MEDS: methylPREDNISolone SOD SUCC 40 MG/1 ML VIAL IV PUSH SCH (22:38)
[2017-06-05] MEDS: ACETAMINOPHEN/HYDROcodone 325 MG/5 MG TAB PO PRN (22:57)
--- NOTE | 2017-06-05 23:24 | HHI.IDPN ---
Subjective Subjective Remarks pt seen today around 1645 pm full note to follow Antibiotics ERTApenem CIPRO Allergies: Coded Allergies: No Known Allergies (Unverified , 11/16/16) Objective . Vital Signs Date Time Temp Pulse Resp B/P (MAP) Pulse Ox O2 Delivery O2 Flow Rate FiO2 06/05/17 22:24 94 Venturi Mask 50 06/05/17 20:00 95.9 97 17 108/55 (72) 93 06/05/17 16:00 98.4 85 20 141/65 (90) 95 06/05/17 12:00 97.4 97 19 141/70 (93) 96 06/05/17 09:46 95 Venturi Mask 50 06/05/17 08:00 96 06/05/17 08:00 97.5 100 18 120/59 (79) 95 06/05/17 06:20 95 06/05/17 04:00 99.8 110 18 120/58 (78) 93 06/05/17 04:00 92 Venturi Mask 6.00 50 06/05/17 00:00 98.7 88 19 127/60 (82) 96 06/05/17 06/05/17 06/06/17 15:00 23:00 07:00 Intake Total 50 ml 850 ml Output Total 1200 ml Balance 50 ml -350 ml Intake Oral 50 ml 750 ml IV Total 100 ml Output Urine Total 1200 ml # Bowel Movements 0 . Laboratory Tests Test 06/04/17 06:14 06/05/17 19:20 White Blood Count 6.4 TH/MM3 5.9 TH/MM3 Red Blood Count 3.73 MIL/MM3 3.65 MIL/MM3 Hemoglobin 10.0 GM/DL 9.8 GM/DL Hematocrit 30.8 % 30.6 % Mean Corpuscular Volume 82.5 FL 83.7 FL Mean Corpuscular Hemoglobin 26.8 PG 26.8 PG Mean Corpuscular Hemoglobin Concent 32.5 % 32.1 % Red Cell Distribution Width 18.3 % 18.4 % Platelet Count 217 TH/MM3 234 TH/MM3 Mean Platelet Volume 8.6 FL 8.9 FL Neutrophils (%) (Auto) 60.2 % 60.9 % Lymphocytes (%) (Auto) 27.7 % 29.3 % Monocytes (%) (Auto) 9.8 % 8.5 % Eosinophils (%) (Auto) 1.5 % 0.7 % Basophils (%) (Auto) 0.8 % 0.6 % Neutrophils # (Auto) 3.8 TH/MM3 3.6 TH/MM3 Lymphocytes # (Auto) 1.8 TH/MM3 1.7 TH/MM3 Monocytes # (Auto) 0.6 TH/MM3 0.5 TH/MM3 Eosinophils # (Auto) 0.1 TH/MM3 0.0 TH/MM3 Basophils # (Auto) 0.0 TH/MM3 0.0 TH/MM3 CBC Comment DIFF FINAL DIFF FINAL Differential Comment Laboratory Tests Test 06/04/17 06:14 06/05/17 19:20 Blood Urea Nitrogen 20 MG/DL 26 MG/DL Creatinine 1.17 MG/DL 1.45 MG/DL Random Glucose 179 MG/DL 284 MG/DL Calcium Level 8.2 MG/DL 8.1 MG/DL Phosphorus Level 2.0 MG/DL Magnesium Level 2.0 MG/DL Sodium Level 138 MEQ/L 139 MEQ/L Potassium Level 4.1 MEQ/L 3.9 MEQ/L Chloride Level 107 MEQ/L 106 MEQ/L Carbon Dioxide Level 24.3 MEQ/L 26.3 MEQ/L Anion Gap 7 MEQ/L 7 MEQ/L Estimat Glomerular Filtration Rate 61 ML/MIN 48 ML/MIN Microbiology Date/Time Source Procedure Growth Status 06/05/17 19:19 Blood Peripheral Aerobic Blood Culture Pending Received 06/05/17 19:19 Blood Peripheral Anaerobic Blood Culture Pending Received 06/05/17 19:10 Blood Peripheral Aerobic Blood Culture Pending Received 06/05/17 19:10 Blood Peripheral Anaerobic Blood Culture Pending Received Imaging Last Impressions Head CT 05/27/172312 Signed Impressions: Service Date/Time: Saturday, May 27, 2017 23:18 - CONCLUSION: Atrophy. No evidence of acute intracranial pathology. Lorenzo Wang MD Chest X-Ray 05/27/172312 Signed Impressions: Service Date/Time: Saturday, May 27, 2017 23:18 - CONCLUSION: 1. Cardiomegaly. No acute pulmonary disease. Lorenzo Wang MD Physical Exam CONSTITUTIONAL/GENERAL: This is an adequately nourished patient, in no apparent distress. TUBES/LINES/DRAINS: SKIN: No jaundice, rashes, or lesions. Skin temperature appropriate. Not diaphoretic. EYES: Pupils equal and round and reactive. Extraocular motions intact. No scleral icterus. No injection or drainage. Fundi not examined. ENT: Hearing grossly normal. Nose without bleeding or purulent drainage. Throat without visible erythema, exudates, masses, or lesions. CARDIOVASCULAR: Regular rate and rhythm without murmurs, gallops, or rubs. No JVD. Peripheral pulses symmetric. RESPIRATORY/CHEST: Symmetric, unlabored respirations. Clear to auscultation. Breath sounds equal bilaterally. No wheezes, rales, or rhonchi. GASTROINTESTINAL: Abdomen soft, non-tender, nondistended. No hepato-splenomegaly , or palpable masses. No guarding. Bowel sounds present. GENITOURINARY: Without palpable bladder distension. Chan catheter in place Urine is clear, light yellow MUSCULOSKELETAL: Extremities without clubbing, cyanosis, or edema. No joint tenderness or effusion noted. No calf tenderness. No mottling or clubbing. NEUROLOGICAL: awake, alert, makes eye contact, follows oriented x 1 PSYCHIATRIC: calm Assessment & Plan Remarks Assessment and Plan Assessment and Plan UTI, ESBL+ E.coli, PSAE yChronic chan Diarrea, abx-associated with h/o C.diff - - c.diff neg cont Ertapenem + cipro anticipate total of 14 days of Ertapenem meropenem time including) dw Cassidy Orosco MD Jun 05, 2017 23:24
[2017-06-06] VITALS (9 sets, daily range): BP systolic 98–133; BP diastolic 53–103; PULSE 60–101; RESP 16–22; TEMP 95.3–99.8; O2SAT 93–98
[2017-06-06] MEDS: methylPREDNISolone SOD SUCC 40 MG/1 ML VIAL IV PUSH SCH ×3 (06:32→21:56)
[2017-06-06 08:02] LABS: AUTOMATED NEUTROPHIL # 3.9 TH/MM3 (1.8-7.7); BASOPHIL % 0.5 % (0.0-2.0); HEMATOCRIT 31.2 % (39.0-51.0); HEMO FLAGS DIFF FINAL; LYMPH % 22.3 % (9.0-44.0); LYMPHOCYTE # 1.2 TH/MM3 (1.0-4.8); MEAN CELL VOLUME 83.2 FL (80.0-100.0); MEAN CORPUSCULAR HEMOGLOBIN 26.9 PG (27.0-34.0); MEAN CORPUSCULAR HGB CONC 32.3 % (32.0-36.0); MONO % 2.4 % (0.0-8.0); NEUT % 74.8 % (16.0-70.0); PLATELET COUNT 217 TH/MM3 (150-450); RED BLOOD COUNT 3.75 MIL/MM3 (4.50-5.90); RED CELL DISTRIBUTION WIDTH 18.5 % (11.6-17.2); WHITE BLOOD COUNT 5.2 TH/MM3 (4.0-11.0)
[2017-06-06 08:25] LABS: ANION GAP 7 MEQ/L (5-15); AST (GOT) 22 U/L (15-37); BICARBONATE 25.6 MEQ/L (21.0-32.0); BLOOD UREA NITROGEN 33 MG/DL (7-18); CHLORIDE 104 MEQ/L (98-107); GLOMERULAR FILTRATION RATE 52 ML/MIN (>89); POTASSIUM 4.5 MEQ/L (3.5-5.1); SODIUM (NA) 137 MEQ/L (136-145)
[2017-06-06 08:26] LABS: ALT (GPT) 24 U/L (12-78)
[2017-06-06 08:29] LABS: ALKALINE PHOSPHATASE 64 U/L (45-117); TOTAL BILIRUBIN ADULT 0.2 MG/DL (0.2-1.0)
[2017-06-06] MEDS: TAMSULOSIN HCL 0.4 MG CAP PO SCH ×2 (09:00→10:11)
[2017-06-06] MEDS: CHOLECALCIFEROL (VIT D3) 1000 UNIT TAB PO SCH ×2 (09:00→10:11)
[2017-06-06] MEDS: FOLIC ACID 1 MG TAB PO SCH ×2 (09:00→10:11)
[2017-06-06] MEDS: HEPARIN SODIUM - SQ 10,000 UNITS/ML VIAL SQ SCH ×2 (10:11→21:58)
[2017-06-06] MEDS ORDERED: ASP: Documented ESBL, MDR A baumannii or P. aeruginosa PRN (10:30)
[2017-06-06] MEDS ORDERED: MISCELLANEOUS PHARMACY INFORMATION XX PRN (10:30)
[2017-06-06] MEDS: SODIUM CHLORIDE 0.9% FLUSH 10 ML FLUSH IV FLUSH SCH ×2 (10:31→21:59)
[2017-06-06] MEDS: FLUTICASONE 100 MCG/VILANTEROL 25 MCG INHALER INH SCH (10:31)
[2017-06-06] MEDS: INSULIN ASPART SUPPLEMENTAL SCALE SQ SCH ×4 (10:35→22:57)
[2017-06-06] MEDS: AZITHROMYCIN INJ 500 MG in SODIUM CHLOR 0.9% 250 ML INJ 250 ML IV SCH (13:40)
--- NOTE | 2017-06-06 13:49 | HHI.PR ---
Subjective Remarks Follow-up encephalopathy, hypoxia. Patient still requiring Ventimask. He is lethargic. He does awaken and answer some questions. Objective Vitals Vital Signs Date Time Temp Pulse Resp B/P (MAP) Pulse Ox O2 Delivery O2 Flow Rate FiO2 06/06/17 12:00 95.6 73 16 98/103 (101) 98 06/06/17 09:18 95 Venturi Mask 50 06/06/17 08:30 61 06/06/17 08:00 96.2 70 16 106/53 (70) 98 06/06/17 04:00 96.1 60 18 132/63 (86) 96 06/06/17 00:00 99.8 89 17 133/62 (85) 98 06/05/17 22:24 94 Venturi Mask 50 06/05/17 20:15 99 06/05/17 20:00 95.9 97 17 108/55 (72) 93 06/05/17 16:00 98.4 85 20 141/65 (90) 95 I/O 06/05/17 06/05/17 06/05/17 06/06/17 06/06/17 06/06/17 07:00 15:00 23:00 07:00 15:00 23:00 Intake Total 240 ml 50 ml 850 ml Output Total 850 ml 1200 ml 1200 ml Balance -610 ml 50 ml -350 ml -1200 ml Intake Oral 240 ml 50 ml 750 ml IV Total 100 ml Output Urine Total 850 ml 1200 ml 1200 ml # Bowel Movements 0 Result Diagram: 06/06/17 0629 06/06/17 0629 Imaging Last Impressions Chest X-Ray 06/05/17 0000 Signed Impressions: Service Date/Time: Monday, June 05, 2017 11:45 - CONCLUSION: 1. Stable elevation of the right hemidiaphragm. 2. No confluent infiltrate but the interstitial markings are slightly more prominent when compared to the prior. While this may be partially due to the low lung volumes, some degree of vascular congestion or volume overload cannot be excluded. Nash Michaels MD CT Angiography 06/05/17 0000 Signed Impressions: Service Date/Time: Monday, June 05, 2017 20:38 - CONCLUSION: 1. No pulmonary embolus. 2. Diffuse pulmonary consolidations. These are nonspecific. Could be secondary to diffuse processes such as edema or other diffuse processes including infection or hypersensitivity. Jas Murphy MD Brain MRI 06/04/17 0000 Signed Impressions: Service Date/Time: Sunday, June 04, 2017 16:08 - CONCLUSION: Marked central and cortical atrophy with significant periventricular white matter changes, nonspecific but could be related to a demyelinating process. Chavo Salvador MD FACR Renal Ultrasound 06/01/17 0000 Signed Impressions: Service Date/Time: Thursday, June 01, 2017 18:55 - CONCLUSION: Normal examination. Jeremy Rutherford Jr., MD Head CT 05/27/17 2313 Signed Impressions: Service Date/Time: Saturday, May 27, 2017 23:18 - CONCLUSION: Atrophy. No evidence of acute intracranial pathology. Lorenzo Wang MD Objective Remarks General: Elderly male in no acute distress. Heart: Regular rate and rhythm. No murmur. Lungs: Clear to auscultation bilaterally. No wheezes, rales, or rhonchi. Breathing is somewhat labored. Abdomen: Soft, nontender, nondistended. Extremities: No lower extremity edema. Psych: Lethargic. Procedures None Urinary Catheter: Yes Assessment to: Continue Mendoza insert reason: Obstruction/Retention Vascular Central Line Catheter: No A/P Assessment and Plan 1. Altered mental status: Possibly encephalopathy secondary to UTI, however patient's family states that this has been ongoing prior to this hospitalization. Head CT is negative. Appreciate neurology recommendations. MRI shows marked central and cortical atrophy with significant periventricular white matter changes, which are nonspecific but could be related to a demyelinating process. EEG shows encephalopathy, but no seizure activity. 2. UTI: Urine culture growing ESBL Escherichia coli and Pseudomonas. Appreciate infectious disease recommendations. Continue antibiotics. UTI is associated with chronic indwelling Mendoza catheter. 3. Urinary retention: Appreciate urology recommendations. Mendoza catheter to remain in place. 4. Hyperkalemia: Resolved. 5. Acute kidney injury: Improving. 6. Recent C. difficile colitis: Status post treatment. Repeat C. difficile study is negative. 7. Hypertension: Blood pressure is well controlled. Continue Cardura, atenolol. Furosemide on hold. 8. Diabetes mellitus type 2: Monitor Accu-Cheks and cover with sliding scale insulin. Glucose has been low. Patient has poor oral intake. Levemir on hold. 9. DVT prophylaxis: Heparin. 10. Respiratory distress, hypoxia: Still requiring Ventimask. Blood cultures are negative so far. Pulmonology consultation appreciated. 11. Palliative care consult Discharge Planning Pending clinical improvement. Will need SNF placement. Jonathan Riley MD Jun 06, 2017 13:49
[2017-06-06] MEDS: MEROPENEM INJ 1,000 MG in SODIUM CHLORIDE 0.9% INJ 100 ML IV SCH ×2 (15:45→21:59)
--- NOTE | 2017-06-06 16:44 | PD.CONS ---
Consult Service Palliative Care Consult Requested By Primary Care Physician Unknown Reason for Consultation a. To assist with evaluation and management of symptoms including: Confusion , Shortness of breath, debility. b. To assist medical decision maker(s) with: better understanding of current medical conditions; weighing benefits/burdens of medical treatment options; making medical treatment decisions. HPI History of Present Illness Mr Montiel is a 72 years old male with a past medical history of hypertension, diabetes mellitus type 2 with peripheral neuropathy , hyperlipidemia, overactive bladder, depression, PTSD, COPD, C difficile colitis and recently diagnosed multiple sclerosis. Patient currently resides in a prison and was noted by prison staff to be less alert and talkative. Patient has a chronic Chan catheter. Patient was sent to the ER on 05/27/17 for evaluation of altered mental status. Laboratory workup on 05/27/17 revealed WBC 15.2, hemoglobin 12.0, hematocrit 30.8 , platelet count 7, sodium 143, potassium 6.2, BUN/creatinine 40/1.91, random glucose 226, AST 10, ALT 14, ammonia 12, troponin less than 0.02, total protein 6.1, albumin 2.2, TSH 2.740. Head CT 05/27/17 revealed atrophy with no evidence of acute changes. Chest x-ray 05/27/17 revealed cardiomegaly with no acute pulmonary disease. Urine culture showed Escherichia coli, ESBL positive and pseudomonas aeruginosa. Clinical course complicated by persistent altered mental status, respiratory failure and infection in urine. ID consulted Dr. Salazar consulted 05/30/17 for evaluation and management of ESBL+ E.coli UTI. Urology Dr. Elliott consulted 06/01/17 who recommended a renal ultrasound and continuing chan catheter upon discharge as well as outpatient urodynamics to evaluate bladder function. Neurology Dr. Cao consulted 06/01/17 for evaluation and management of mental status change. Brain MRI 06/04/17 revealed mild central and cortical atrophy with significant periventricular white matter changes. Pulmonary Dr Levin consulted 06/05/17 for evaluation and management of hypoxia. CT angiography 06/05/17 negative for PE, diffuse bilateral pulmonary consolidations. Patient seen in his room in bed, awake, oriented to person only, not oriented to time and place. Patient answering some simple questions correctly and appropriately. Patient`s at bedside. Patient is currently on a Venturi mask 50% saturating mid 90s to high 90s. SBP low 100s-130s. Laboratory workup today revealing WBC 5.2, hemoglobin 10.1, hematocrit 31.2, platelet count 217, sodium 137, potassium 4.5, BUN/creatinine 33/1.35, random glucose 300, total protein 6.3, albumin 1.7. Patient at this time demonstrates inability to comprehend his medical status. Discussed patient`s medical decline over the last months. Discussed code status , discussed risks of CPR, benefits and limitations of CPR given ongoing multiple comorbidities, and recent prolonged hospitalization. Both patient and decided to make patient a DNR/DNI. Patient said, " if my heart to stop I would like to naturally, I don't want to be on a machine." Patient's supportive and mentioned that he would not want to be on life support. Per patient`s , patient does not have advance directives. Function/Cognitive Trajectory Patient was hospitalized at the [facility] in [place] after a mechanical fall, and was diagnosed newly diagnosed with multiple sclerosis. Upon discharge he was sent to an outpatient rehabilitation facility and then home with home health care ON 02/23/17. On 02/24/17 patient's home health care nurse was not able to get him out of bed and EMS was called , patient was found to be severely hypoglycemic with blood sugar in the 20s.Patient was admitted from 02/24/17 -t [facility] for acute renal failure, sepsis, and hyperkalemia. During that time patient received hemodialysis. Patient was discharged to [facility] for rehabilitation. Patient currently resides at a prison. Patient's reported that patient's mental status has been waxing and waning symptoms for 4 months ago. Patient`s stated that she would note that when she gets home after work patient may have some confusion. Per patient`s patient has been having multiple falls at home prior to hospitalization at the [facility] in [place]. Patient was using a walker and a wheel chair. . Review of Systems ROS Limitations: Altered Mental Status Constitutional: COMPLAINS OF: Weight loss, Generalized weakness Eyes: DENIES: Eye inflammation Ears, nose, mouth, throat: DENIES: Nasal discharge Respiratory: COMPLAINS OF: Shortness of breath Cardiovascular: DENIES: Lower Extremity Edema Gastrointestinal: COMPLAINS OF: Diarrhea Genitourinary: COMPLAINS OF: Urinary incontinence Musculoskeletal: COMPLAINS OF: Decreased range of motion Hematologic/Lymphatics: COMPLAINS OF: Bruising Neurologic: COMPLAINS OF: Poor Balance Psychiatric: COMPLAINS OF: Confusion, Depression Past Family Social History Coded Allergies: No Known Allergies (Unverified , 11/16/16) Past Medical History Diabetes mellitus Type 2 with peripheral neuropathy Hypertension. Hyperlipidemia. Over active bladder. Depression PTSD COPD Newly diagnosed multiple sclerosis. Patient was exposed to agent orange while in [place] Past Surgical History . . Reported Medications Cardura (Doxazosin Mesylate) 4 Mg Tab 4 Mg PO HS Flomax (Tamsulosin HCl) 0.4 Mg Cap 0.4 Mg PO DAILY Omeprazole 20 Mg Tab 20 Mg PO DAILY Duoneb (Ipratropium-Albuterol Neb) 0.5-2.5 Mg/3 Ml Neb 1 Nebule INH Q4HR NEB Novolog Inj (Insulin Aspart) 1,000 Unit/10 Ml Vial 2-12 Units SQ ACHS Novolog Flexpen Inj (Insulin Aspart) 300 Unit/3 Ml Pen 4 Units SQ TID Furosemide 40 Mg Tab 40 Mg PO DAILY Breo Ellipta Inh (Fluticasone/Vilanterol) 100-25 Mcg/Act Inh 1 Puff INH DAILY Folic Acid 0.8 Mg Tab 1 Mg PO DAILY Fibercon (Calcium Polycarbophil) 625 Mg Tab 1,250 Mg PO BID Cholestyramine Light 4 Gm/Dose Powd 4 Gm PO BID Potassium Chloride ER (Potassium Chloride) 10 Meq Cap 20 Meq PO BID Nu-Iron 150 (Polysaccharide Iron Complex) 150 Mg Iron Cap 150 Mg PO DAILY Metronidazole 500 Mg Tab 500 Mg PO TID Vancomycin (Vancomycin HCl) 250 Mg Cap 250 Mg PO QID Loperamide (Loperamide HCl) 2 Mg Tablet 2 Mg PO TID Culturelle (Lactobacillus Rhamnosus (GG)) 10 Billion Cell Cap 1 Cap PO BID Lantus Inj (Insulin Glargine) 100 Unit/Ml Inj 30 Unit SQ HS Atenolol 50 Mg Tab 50 Mg PO DAILY Sertraline (Sertraline HCl) 100 Mg Tab 100 Mg PO DAILY Current Medications Medications (Trade) Dose Ordered Sig/Juan Route Start Time Stop Time Status Last Admin (NS Flush) 2 ml UNSCH PRN IV FLUSH 05/28/17 03:15 (NS Flush) 2 ml BID IV FLUSH 05/28/17 09:00 06/06/17 10:31 (Tylenol) 650 mg Q4H PRN PO 05/28/17 03:15 06/04/17 20:41 (Zofran Inj) 4 mg Q6H PRN IVP 05/28/17 03:15 (Narcan Inj) 0.4 mg UNSCH PRN IV PUSH 05/28/17 03:15 (Heparin Inj) 5,000 units Q12HR SQ 05/28/17 09:00 06/06/17 10:11 (Cardura) 4 mg HS PO 05/28/17 21:00 06/05/17 22:37 (Breo Ellipta 100-25 Inh) 1 puff DAILY INH 05/29/17 10:45 06/06/17 10:31 (Folate) 1 mg DAILY PO 05/29/17 10:45 06/05/17 10:06 (Flomax) 0.4 mg DAILY PO 05/29/17 10:45 06/05/17 10:05 (NovoLOG SUPPLEMENTAL SCALE) 1 ACHS SLIDING SCALE SQ 05/29/17 12:00 06/06/17 13:06 (Duoneb Neb) 1 ampule Q2HR NEB PRN NEB 05/29/17 11:00 (Levemir Inj) 15 units BID SQ 05/31/17 09:09 Future Hold 06/02/17 20:36 (Huxley 5-325 Mg) 1 tab Q4H PRN PO 05/31/17 14:45 06/05/17 22:57 (Vitamin D3) 1,000 units DAILY PO 06/01/17 14:30 06/05/17 10:05 (D50w (Vial) Inj) 50 ml UNSCH PRN IV PUSH 06/03/17 08:00 (Glucagon Inj) 1 mg UNSCH PRN OTHER 06/03/17 08:00 (SoluMEDROL INJ) 40 mg Q8HR IV PUSH 06/05/17 22:00 06/06/17 13:05 (ASP Crit: Doc ESBL, MDR A baumannii or P aer) 1 UNSCH X1 PRN .XX 06/06/17 10:30 06/07/17 10:29 ([facility]) 1 UNSCH X1 PRN XX 06/06/17 10:30 06/07/17 10:29 Meropenem 1000 mg/ Sodium Chloride 100 ml @ 200 mls/hr Q8H IV 06/06/17 13:00 Azithromycin 500 mg/Sodium Chloride 250 ml @ 250 mls/hr Q24H IV 06/06/17 12:00 06/06/17 13:40 Family History Patient has 4 living adult children. . Substance Use Tobacco: Active smoker with a 60+ year pack of smoking Alcohol: History of EtOH use Prescription med abuse: Denies Illicits: Denies . Psychosocial History Patient was born and raised in [place]. Patient has been twice. He his first after 23 years of marriage and is currently to his second of 28 years. Patient met his second in the [facility]. Patient has 4 adult children, 2 sons from his first marriage and a son and a daughter from his second marriage. Patient is an [employer] with an honorable discharge and service in [place]. Patient has an ANNA. 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 . Spiritual/Cultural Factors Patient is Rastafarian . Living Will: Never completed Health Care Surrogate: Never completed Durable Power of Critical Care Transport Nurse: Never completed Physical Exam Vital Signs Date Time Temp Pulse Resp B/P (MAP) Pulse Ox O2 Delivery O2 Flow Rate FiO2 06/06/17 12:00 95.6 73 16 98/103 (101) 98 06/06/17 09:18 95 Venturi Mask 50 06/06/17 08:30 61 06/06/17 08:00 96.2 70 16 106/53 (70) 98 06/06/17 04:00 96.1 60 18 132/63 (86) 96 06/06/17 00:00 99.8 89 17 133/62 (85) 98 06/05/17 22:24 94 Venturi Mask 50 06/05/17 20:15 99 06/05/17 20:00 95.9 97 17 108/55 (72) 93 06/05/17 16:00 98.4 85 20 141/65 (90) 95 Exam CONSTITUTIONAL/GENERAL: This is an ill looking male, in mild respiratory distress. TUBES/LINES/DRAINS: PIV, FC, Ventimask SKIN: No jaundice, rashes, or lesions. Ecchymoses on upper extremities. No wounds seen anteriorly. Skin temperature appropriate. Not diaphoretic. HEAD: Atraumatic. Normocephalic. EYES: Pupils equal and round and reactive. Extraocular motions intact. No scleral icterus. No injection or drainage. Fundi not examined. ENT: Hearing grossly normal. Nose without bleeding or purulent drainage. Moist oral mucosa NECK: Trachea midline. Supple, nontender. CARDIOVASCULAR: Regular rate and rhythm without murmurs, gallops, or rubs. No JVD. Peripheral pulses symmetric. RESPIRATORY/CHEST: Symmetric, unlabored respirations. Clear to auscultation. Breath sounds equal bilaterally. No wheezes, rales, or rhonchi. GASTROINTESTINAL: Abdomen soft, non-tender, nondistended. No hepato-splenomegaly , or palpable masses. No guarding. Bowel sounds present. GENITOURINARY: Without palpable bladder distension. Chan catheter in place. MUSCULOSKELETAL: Extremities without clubbing, cyanosis, or edema. No joint tenderness or effusion noted. No calf tenderness. No mottling or clubbing. NEUROLOGICAL: Lethargic and partially oriented with some confusion. Motor and sensory grossly within normal limits. Follows commands. Moves all extremities. PSYCHIATRIC: No obvious anxiety/depression. no apparent hallucinations or other psychotic thought process. . Diagnostic Tests Laboratory Laboratory Tests Test 06/03/17 17:02 06/04/17 06:14 06/05/17 12:00 06/05/17 19:20 Ammonia 31 MCMOL/L (11-32) Free Thyroxine 0.98 NG/DL (0.76-1.46) Thyroid Stimulating Hormone 3rd Gen 1.210 uIU/ML (0.358-3.740) White Blood Count 6.4 TH/MM3 (4.0-11.0) 5.9 TH/MM3 (4.0-11.0) Red Blood Count 3.73 MIL/MM3 (4.50-5.90) 3.65 MIL/MM3 (4.50-5.90) Hemoglobin 10.0 GM/DL (13.0-17.0) 9.8 GM/DL (13.0-17.0) Hematocrit 30.8 % (39.0-51.0) 30.6 % (39.0-51.0) Mean Corpuscular Volume 82.5 FL (80.0-100.0) 83.7 FL (80.0-100.0) Mean Corpuscular Hemoglobin 26.8 PG (27.0-34.0) 26.8 PG (27.0-34.0) Mean Corpuscular Hemoglobin Concent 32.5 % (32.0-36.0) 32.1 % (32.0-36.0) Red Cell Distribution Width 18.3 % (11.6-17.2) 18.4 % (11.6-17.2) Platelet Count 217 TH/MM3 (150-450) 234 TH/MM3 (150-450) Mean Platelet Volume 8.6 FL (7.0-11.0) 8.9 FL (7.0-11.0) Neutrophils (%) (Auto) 60.2 % (16.0-70.0) 60.9 % (16.0-70.0) Lymphocytes (%) (Auto) 27.7 % (9.0-44.0) 29.3 % (9.0-44.0) Monocytes (%) (Auto) 9.8 % (0.0-8.0) 8.5 % (0.0-8.0) Eosinophils (%) (Auto) 1.5 % (0.0-4.0) 0.7 % (0.0-4.0) Basophils (%) (Auto) 0.8 % (0.0-2.0) 0.6 % (0.0-2.0) Neutrophils # (Auto) 3.8 TH/MM3 (1.8-7.7) 3.6 TH/MM3 (1.8-7.7) Lymphocytes # (Auto) 1.8 TH/MM3 (1.0-4.8) 1.7 TH/MM3 (1.0-4.8) Monocytes # (Auto) 0.6 TH/MM3 (0-0.9) 0.5 TH/MM3 (0-0.9) Eosinophils # (Auto) 0.1 TH/MM3 (0-0.4) 0.0 TH/MM3 (0-0.4) Basophils # (Auto) 0.0 TH/MM3 (0-0.2) 0.0 TH/MM3 (0-0.2) CBC Comment DIFF FINAL DIFF FINAL Differential Comment Blood Urea Nitrogen 20 MG/DL (7-18) 26 MG/DL (7-18) Creatinine 1.17 MG/DL (0.60-1.30) 1.45 MG/DL (0.60-1.30) Random Glucose 179 MG/DL (74-106) 284 MG/DL (74-106) Calcium Level 8.2 MG/DL (8.5-10.1) 8.1 MG/DL (8.5-10.1) Phosphorus Level 2.0 MG/DL (2.5-4.9) Magnesium Level 2.0 MG/DL (1.5-2.5) Sodium Level 138 MEQ/L (136-145) 139 MEQ/L (136-145) Potassium Level 4.1 MEQ/L (3.5-5.1) 3.9 MEQ/L (3.5-5.1) Chloride Level 107 MEQ/L (98-107) 106 MEQ/L (98-107) Carbon Dioxide Level 24.3 MEQ/L (21.0-32.0) 26.3 MEQ/L (21.0-32.0) Anion Gap 7 MEQ/L (5-15) 7 MEQ/L (5-15) Estimat Glomerular Filtration Rate 61 ML/MIN (>89) 48 ML/MIN (>89) Blood Gas Puncture Site RT RADIAL Blood Gas Patient Temperature 98.6 Blood Gas HCO3 25 mmol/L (22-26) Blood Gas Base Excess 1.4 mmol/L (-2-2) Blood Gas Oxygen Saturation 96 % (90-100) Arterial Blood pH 7.44 (7.380-7.420) Arterial Blood Partial Pressure CO2 38 mmHg (38-42) Arterial Blood Partial Pressure O2 102 mmHg (61-120) Arterial Blood Oxygen Content 18.8 Vol % (12.0-20.0) Arterial Blood Carboxyhemoglobin 1.2 % (0-4) Arterial Blood Methemoglobin 0.7 % (0-2) Blood Gas Hemoglobin 13.9 G/DL (12.0-16.0) Oxygen Delivery Device Venti Mask Blood Gas Liter Flow 6 L/M Blood Gas Inspired Oxygen 50 % Test 06/06/17 06:29 White Blood Count 5.2 TH/MM3 (4.0-11.0) Red Blood Count 3.75 MIL/MM3 (4.50-5.90) Hemoglobin 10.1 GM/DL (13.0-17.0) Hematocrit 31.2 % (39.0-51.0) Mean Corpuscular Volume 83.2 FL (80.0-100.0) Mean Corpuscular Hemoglobin 26.9 PG (27.0-34.0) Mean Corpuscular Hemoglobin Concent 32.3 % (32.0-36.0) Red Cell Distribution Width 18.5 % (11.6-17.2) Platelet Count 217 TH/MM3 (150-450) Mean Platelet Volume 9.2 FL (7.0-11.0) Neutrophils (%) (Auto) 74.8 % (16.0-70.0) Lymphocytes (%) (Auto) 22.3 % (9.0-44.0) Monocytes (%) (Auto) 2.4 % (0.0-8.0) Eosinophils (%) (Auto) 0.0 % (0.0-4.0) Basophils (%) (Auto) 0.5 % (0.0-2.0) Neutrophils # (Auto) 3.9 TH/MM3 (1.8-7.7) Lymphocytes # (Auto) 1.2 TH/MM3 (1.0-4.8) Monocytes # (Auto) 0.1 TH/MM3 (0-0.9) Eosinophils # (Auto) 0.0 TH/MM3 (0-0.4) Basophils # (Auto) 0.0 TH/MM3 (0-0.2) CBC Comment DIFF FINAL Differential Comment Blood Urea Nitrogen 33 MG/DL (7-18) Creatinine 1.35 MG/DL (0.60-1.30) Random Glucose 300 MG/DL (74-106) Total Protein 6.3 GM/DL (6.4-8.2) Albumin 1.7 GM/DL (3.4-5.0) Calcium Level 8.4 MG/DL (8.5-10.1) Alkaline Phosphatase 64 U/L (45-117) Aspartate Amino Transf (AST/SGOT) 22 U/L (15-37) Alanine Aminotransferase (ALT/SGPT) 24 U/L (12-78) Total Bilirubin 0.2 MG/DL (0.2-1.0) Sodium Level 137 MEQ/L (136-145) Potassium Level 4.5 MEQ/L (3.5-5.1) Chloride Level 104 MEQ/L (98-107) Carbon Dioxide Level 25.6 MEQ/L (21.0-32.0) Anion Gap 7 MEQ/L (5-15) Estimat Glomerular Filtration Rate 52 ML/MIN (>89) Result Diagram: 06/06/1729 06/06/17628 Microbiology Microbiology Date/Time Source Procedure Growth Status 06/05/17 19:19 Blood Peripheral Aerobic Blood Culture - Preliminary NO GROWTH IN 1 DAY Resulted 06/05/17 19:19 Blood Peripheral Anaerobic Blood Culture - Preliminary NO GROWTH IN 1 DAY Resulted 06/05/17 19:10 Blood Peripheral Aerobic Blood Culture - Preliminary NO GROWTH IN 1 DAY Resulted 06/05/17 19:10 Blood Peripheral Anaerobic Blood Culture - Preliminary NO GROWTH IN 1 DAY Resulted Imaging Last Impressions Chest X-Ray 06/05/17 0000 Signed Impressions: Service Date/Time: Monday, June 05, 2017 11:45 - CONCLUSION: 1. Stable elevation of the right hemidiaphragm. 2. No confluent infiltrate but the interstitial markings are slightly more prominent when compared to the prior. While this may be partially due to the low lung volumes, some degree of vascular congestion or volume overload cannot be excluded. Nash Michaels MD CT Angiography 06/05/17 0000 Signed Impressions: Service Date/Time: Monday, June 05, 2017 20:38 - CONCLUSION: 1. No pulmonary embolus. 2. Diffuse pulmonary consolidations. These are nonspecific. Could be secondary to diffuse processes such as edema or other diffuse processes including infection or hypersensitivity. Jas Murphy MD Brain MRI 06/04/17 0000 Signed Impressions: Service Date/Time: Sunday, June 04, 2017 16:08 - CONCLUSION: Marked central and cortical atrophy with significant periventricular white matter changes, nonspecific but could be related to a demyelinating process. Chavo Salvador MD FACR Renal Ultrasound 06/01/17 0000 Signed Impressions: Service Date/Time: Thursday, June 01, 2017 18:55 - CONCLUSION: Normal examination. Jeremy Rutherford Jr., MD Head CT 05/27/17 [id number] Signed Impressions: Service Date/Time: Saturday, May 27, 2017 23:18 - CONCLUSION: Atrophy. No evidence of acute intracranial pathology. Lorenzo Wang MD Patient/Family Conference Present at Family Conference: Met with patient`s at bedside. . Issues Discussed: * Palliative care role, purpose, approach * Additional medical, psychosocial, and spiritual history * Patients general health, functional status, and cognitive changes in the months leading up to the current hospitalization * Patient/family understanding of the current medical problems * Patient/family understanding of prognosis * Patients goals of care as best understood from advance directives and/or conversations and/or values * Current medical treatment options and benefits/burdens of those options * Likely scenarios comparing ongoing aggressive care with a transition to comfort measures only * Questions answered to the best of my ability * Hospice philosophy and benefits introduced * Palliative care contact information provided Assessment and Plan Disease Oriented Problem List: (1) Altered mental status (2) Urinary tract infection (3) Acute kidney injury (4) COPD exacerbation (5) Diabetes mellitus Symptom Scale: (1) Shortness of breath Comment: Patient currently on 50% Ventimask. . (2) Confusion Comment: Patient admitted for altered mental status-currently confused- currently confused. . (3) Debility Comment: Progressive. Patient has been in and out of rehabilitation hospital and rehabilitation. Pertinent Non-Medical Issues Psychosocial:Patient was born and raised in [place]. Patient has been twice. He his first after 23 years of marriage and is currently to his second of 28 years. Patient met his second in the [facility]. Patient has 4 adult children, 2 sons from his first marriage and a son and a daughter from his second marriage. Patient is an [employer] with an honorable discharge and service in [place]. Patient has an ANNA. Patient worked in machinery sales until residential. 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 Spiritual: Patient is Rastafarian Legal: No advance directives Ethical issues impacting care: None identified at this time. . Important Contacts Spouse- Alla Montiel [phone] Daughter- Colleen Montiel [phone] Prognosis Mr Montiel is a 72 years old male with a past medical history of hypertension, diabetes mellitus type 2 with peripheral neuropathy , hyperlipidemia, overactive bladder, depression, PTSD, COPD, C difficile colitis and recently diagnosed multiple sclerosis. Patient currently resides in a prison and was noted by prison staff to be less alert and talkative. Patient has a chronic Chan catheter. Clinical course complicated by persistent altered mental status, respiratory failure and infection in urine. Patient was sent to the ER on 05/27/17 for evaluation of altered mental status. Given ongoing comorbidities, patient remains at high risk for further complications, deterioration and decline. . Code Status: No Code Plan PLAN: Legal decision maker: Patient at this time demonstrates inability to comprehend his medical status and has been confused most of the times. In the state of [place], patient`s Alla Montiel will serve as his Health Care Proxy. Goals: Aggressive short of no code. Patient and his made patient a DNR/ DNI today. CODE STATUS: DNR/DNI SYMPTOMS: * Shortness of breath: Multifactorial. Patient his history of COPD. Currently on 50% Ventimask. Patient is on Solu-Medrol 40 mg every 8 hours ATC, to one hips every 2 hours when necessary for dyspnea, fluticasone/Vilanterol inhaler daily * Confusion: Multifactorial. Patient came in with altered mental status. Patient treated for UTI. Remains confused. * Debility: Progressive. Patient has had multiple hospitalizations including rehabilitation in the past few months. Newly diagnosed multiple sclerosis. Recommending physical therapy and occupational therapy.Patient weighed 101 kg on 03/07/17 during his last admission and on 06/06/17 patient weighs 71.9kg. Recent albumin level is 1.7. Palliative care will continue to follow the patient during hospital course as condition evolves, to assist patient/decision-maker with understanding of their medical conditions, weighing benefits/burdens of treatment options, for clarification of goals of treatment. Additionally will assist with any symptoms of palliative concern Thank you for the opportunity to participate in the care of Mr. Montiel. Gloria Jones Jun 06, 2017 16:17
--- NOTE | 2017-06-06 19:09 | HHI.PR ---
Subjective Remarks ALERT CONFUSED CT CHEST BILATERAL INFILTRATES INFECTION VS OTHER PLLIATIVE CARE NOTE APPRETIATED Objective GENERAL: SKIN: Warm and dry. HEAD: Atraumatic. Normocephalic. EYES: Pupils equal and round. No scleral icterus. No injection or drainage. ENT: No nasal bleeding or discharge. Mucous membranes pink and moist. NECK: Trachea midline. No JVD. CARDIOVASCULAR: Regular rate and rhythm. RESPIRATORY: No accessory muscle use. Clear to auscultation. Breath sounds equal bilaterally. GASTROINTESTINAL: Abdomen soft, non-tender, nondistended. Hepatic and splenic margins not palpable. MUSCULOSKELETAL: Extremities without clubbing, cyanosis, or edema. No obvious deformities. NEUROLOGICAL: Awake and alert. No obvious cranial nerve deficits. Motor grossly within normal limits. Five out of 5 muscle strength in the arms and legs. Normal speech. PSYCHIATRIC: Appropriate mood and affect; insight and judgment normal. Vital Signs Date Time Temp Pulse Resp B/P (MAP) Pulse Ox O2 Delivery O2 Flow Rate FiO2 06/06/17 16:00 95.3 83 16 124/58 (80) 97 06/06/17 12:00 95.6 73 16 98/103 (101) 98 06/06/17 09:18 95 Venturi Mask 50 06/06/17 08:30 61 06/06/17 08:00 96.2 70 16 106/53 (70) 98 06/06/17 04:00 96.1 60 18 132/63 (86) 96 06/06/17 00:00 99.8 89 17 133/62 (85) 98 06/05/17 22:24 94 Venturi Mask 50 06/05/17 20:15 99 06/05/17 20:00 95.9 97 17 108/55 (72) 93 I/O 06/05/17 06/05/17 06/05/17 06/06/17 06/06/17 06/06/17 07:00 15:00 23:00 07:00 15:00 23:00 Intake Total 240 ml 50 ml 850 ml 200 ml Output Total 850 ml 1200 ml 1200 ml 600 ml Balance -610 ml 50 ml -350 ml -1200 ml -400 ml Intake Oral 240 ml 50 ml 750 ml 200 ml IV Total 100 ml Output Urine Total 850 ml 1200 ml 1200 ml 600 ml # Bowel Movements 0 0 Result Diagram: 06/06/1762806/06/17628 Assessment and Plan Assessment and Plan RESPIRATORY FAILURE NO PE POSSIBLE PNEUMONIA DEMENTIA PLAN PLAN O2 NEEDED ANTIBX PER ID OUTLOOK POOR Ollie Levin MD Jun 06, 2017 19:09
--- NOTE | 2017-06-06 19:32 | HHI.IDPN ---
Subjective Subjective Remarks pt is doing poorly He is now on ventimask very lethargic nearly obtunded Hypothermia noted Diffuse infiltrates on imaging studies Antibiotics meropenem azithro Allergies: Coded Allergies: No Known Allergies (Unverified , 11/16/16) Objective . Vital Signs Date Time Temp Pulse Resp B/P (MAP) Pulse Ox O2 Delivery O2 Flow Rate FiO2 06/06/17 16:00 95.3 83 16 124/58 (80) 97 06/06/17 12:00 95.6 73 16 98/103 (101) 98 06/06/17 09:18 95 Venturi Mask 50 06/06/17 08:30 61 06/06/17 08:00 96.2 70 16 106/53 (70) 98 06/06/17 04:00 96.1 60 18 132/63 (86) 96 06/06/17 00:00 99.8 89 17 133/62 (85) 98 06/05/17 22:24 94 Venturi Mask 50 06/05/17 20:15 99 06/05/17 20:00 95.9 97 17 108/55 (72) 93 06/06/17 06/06/17 06/07/17 15:00 23:00 07:00 Intake Total 200 ml Output Total 600 ml Balance -400 ml Intake Oral 200 ml Output Urine Total 600 ml # Bowel Movements 0 . Laboratory Tests Test 06/05/17 19:20 06/06/17 06:29 White Blood Count 5.9 TH/MM3 5.2 TH/MM3 Red Blood Count 3.65 MIL/MM3 3.75 MIL/MM3 Hemoglobin 9.8 GM/DL 10.1 GM/DL Hematocrit 30.6 % 31.2 % Mean Corpuscular Volume 83.7 FL 83.2 FL Mean Corpuscular Hemoglobin 26.8 PG 26.9 PG Mean Corpuscular Hemoglobin Concent 32.1 % 32.3 % Red Cell Distribution Width 18.4 % 18.5 % Platelet Count 234 TH/MM3 217 TH/MM3 Mean Platelet Volume 8.9 FL 9.2 FL Neutrophils (%) (Auto) 60.9 % 74.8 % Lymphocytes (%) (Auto) 29.3 % 22.3 % Monocytes (%) (Auto) 8.5 % 2.4 % Eosinophils (%) (Auto) 0.7 % 0.0 % Basophils (%) (Auto) 0.6 % 0.5 % Neutrophils # (Auto) 3.6 TH/MM3 3.9 TH/MM3 Lymphocytes # (Auto) 1.7 TH/MM3 1.2 TH/MM3 Monocytes # (Auto) 0.5 TH/MM3 0.1 TH/MM3 Eosinophils # (Auto) 0.0 TH/MM3 0.0 TH/MM3 Basophils # (Auto) 0.0 TH/MM3 0.0 TH/MM3 CBC Comment DIFF FINAL DIFF FINAL Differential Comment Laboratory Tests Test 06/05/17 19:20 06/06/17 06:29 Blood Urea Nitrogen 26 MG/DL 33 MG/DL Creatinine 1.45 MG/DL 1.35 MG/DL Random Glucose 284 MG/DL 300 MG/DL Calcium Level 8.1 MG/DL 8.4 MG/DL Sodium Level 139 MEQ/L 137 MEQ/L Potassium Level 3.9 MEQ/L 4.5 MEQ/L Chloride Level 106 MEQ/L 104 MEQ/L Carbon Dioxide Level 26.3 MEQ/L 25.6 MEQ/L Anion Gap 7 MEQ/L 7 MEQ/L Estimat Glomerular Filtration Rate 48 ML/MIN 52 ML/MIN Total Protein 6.3 GM/DL Albumin 1.7 GM/DL Alkaline Phosphatase 64 U/L Aspartate Amino Transf (AST/SGOT) 22 U/L Alanine Aminotransferase (ALT/SGPT) 24 U/L Total Bilirubin 0.2 MG/DL Microbiology Date/Time Source Procedure Growth Status 06/05/17 19:19 Blood Peripheral Aerobic Blood Culture - Preliminary NO GROWTH IN 1 DAY Resulted 06/05/17 19:19 Blood Peripheral Anaerobic Blood Culture - Preliminary NO GROWTH IN 1 DAY Resulted 06/05/17 19:10 Blood Peripheral Aerobic Blood Culture - Preliminary NO GROWTH IN 1 DAY Resulted 06/05/17 19:10 Blood Peripheral Anaerobic Blood Culture - Preliminary NO GROWTH IN 1 DAY Resulted Imaging Last Impressions Chest X-Ray 06/05/17 0000 Signed Impressions: Service Date/Time: Monday, June 05, 2017 11:45 - CONCLUSION: 1. Stable elevation of the right hemidiaphragm. 2. No confluent infiltrate but the interstitial markings are slightly more prominent when compared to the prior. While this may be partially due to the low lung volumes, some degree of vascular congestion or volume overload cannot be excluded. Nash Michaels MD CT Angiography 06/05/17 0000 Signed Impressions: Service Date/Time: Monday, June 05, 2017 20:38 - CONCLUSION: 1. No pulmonary embolus. 2. Diffuse pulmonary consolidations. These are nonspecific. Could be secondary to diffuse processes such as edema or other diffuse processes including infection or hypersensitivity. Jas Murphy MD Brain MRI 06/04/17 0000 Signed Impressions: Service Date/Time: Sunday, June 04, 2017 16:08 - CONCLUSION: Marked central and cortical atrophy with significant periventricular white matter changes, nonspecific but could be related to a demyelinating process. Chavo Salvador MD FACR Renal Ultrasound 06/01/17 0000 Signed Impressions: Service Date/Time: Thursday, June 01, 2017 18:55 - CONCLUSION: Normal examination. Jeremy Rutherford Jr., MD Head CT 05/27/17 2313 Signed Impressions: Service Date/Time: Saturday, May 27, 2017 23:18 - CONCLUSION: Atrophy. No evidence of acute intracranial pathology. Lorenzo Wang MD Physical Exam CONSTITUTIONAL/GENERAL: This is an adequately nourished patient, lethargic to ontunded TUBES/LINES/DRAINS: SKIN: No jaundice, rashes, or lesions. Skin temperature appropriate. Not diaphoretic. EYES: Pupils equal and round and reactive. Extraocular motions intact. No scleral icterus. No injection or drainage. Fundi not examined. ENT: Hearing grossly normal. Nose without bleeding or purulent drainage. Throat without visible erythema, exudates, masses, or lesions. CARDIOVASCULAR: Regular rate and rhythm without murmurs, gallops, or rubs. No JVD. Peripheral pulses symmetric. RESPIRATORY/CHEST: Symmetric, unlabored respirations. Clear to auscultation. Breath sounds equal bilaterally. No wheezes, rales, or rhonchi. GASTROINTESTINAL: Abdomen soft, non-tender, nondistended. No hepato-splenomegaly , or palpable masses. No guarding. Bowel sounds present. GENITOURINARY: Without palpable bladder distension. Chan catheter in place Urine is clear, light yellow MUSCULOSKELETAL: Extremities without clubbing, cyanosis, or edema. No joint tenderness or effusion noted. No calf tenderness. No mottling or clubbing. NEUROLOGICAL: very lethargic, nearly obtunded, difficult to arouse, non verbal not following commands, not making eye contact PSYCHIATRIC: unable to assess Assessment & Plan Remarks Assessment and Plan Assessment and Plan UTI, ESBL+ E.coli, PSAE yChronic chan Diarrea, abx-associated with h/o C.diff - - c.diff neg Pulmonary infiltrates with hypoxia Hypothermia Pt is now DNR , palliative ff change Ertapenem + cipro to meropenem and azithro chk blood, urine clx sputum clx if feasible reinaldo najera family member Cassidy Antony RN, MD Jun 06, 2017 19:32
[2017-06-06] MEDS: DOXAZOSIN MESYLATE 4 MG TAB PO SCH (21:56)
[2017-06-06 22:46] LABS: BACTERIA, URINE RARE /hpf; BLOOD, URINE SMALL (NEG); COMMENT (UR) CATH-CULTURE IND; CULTURE IF INDICATED CATH CULTURE IND; GLUCOSE,URINE 1000 mg/dL (NEG); HYALINE CAST, URINE 6 /lpf (RARE); KETONE, URINE NEG (NEG); MUCUS URINE FEW /lpf (OCC); NITRITE,URINE NEG (NEG); PH, URINE 5.5 (5.0-8.5); SQUAMOUS EPITHELIAL CELL URINE <1 /hpf (0-5); URIC ACID CRYSTALS, URINE RARE /hpf; URINE COLOR YELLOW (YELLW/STRAW)
[2017-06-07] VITALS (7 sets, daily range): BP systolic 118–148; BP diastolic 58–67; PULSE 65–79; RESP 16–22; TEMP 95.5–97.7; O2SAT 92–99
[2017-06-07] MEDS: methylPREDNISolone SOD SUCC 40 MG/1 ML VIAL IV PUSH SCH ×3 (05:30→21:03)
[2017-06-07] MEDS: MEROPENEM INJ 1,000 MG in SODIUM CHLORIDE 0.9% INJ 100 ML IV SCH ×3 (05:30→21:02)
[2017-06-07] MEDS: TAMSULOSIN HCL 0.4 MG CAP PO SCH (08:12)
[2017-06-07] MEDS: FOLIC ACID 1 MG TAB PO SCH (08:13)
[2017-06-07] MEDS: CHOLECALCIFEROL (VIT D3) 1000 UNIT TAB PO SCH (08:13)
[2017-06-07] MEDS: HEPARIN SODIUM - SQ 10,000 UNITS/ML VIAL SQ SCH ×2 (08:13→21:02)
[2017-06-07] MEDS: SODIUM CHLORIDE 0.9% FLUSH 10 ML FLUSH IV FLUSH SCH ×2 (08:13→21:02)
[2017-06-07] MEDS: INSULIN ASPART SUPPLEMENTAL SCALE SQ SCH ×4 (08:14→21:04)
[2017-06-07] MEDS: FLUTICASONE 100 MCG/VILANTEROL 25 MCG INHALER INH SCH (08:14)
[2017-06-07 08:44] LABS: AUTOMATED NEUTROPHIL # 4.5 TH/MM3 (1.8-7.7); BASOPHIL % 0.1 % (0.0-2.0); HEMATOCRIT 31.8 % (39.0-51.0); HEMO FLAGS DIFF FINAL; LYMPH % 18.6 % (9.0-44.0); LYMPHOCYTE # 1.1 TH/MM3 (1.0-4.8); MEAN CELL VOLUME 83.4 FL (80.0-100.0); MEAN CORPUSCULAR HEMOGLOBIN 26.9 PG (27.0-34.0); MEAN CORPUSCULAR HGB CONC 32.2 % (32.0-36.0); MONO % 4.5 % (0.0-8.0); NEUT % 76.8 % (16.0-70.0); PLATELET COUNT 274 TH/MM3 (150-450); RED BLOOD COUNT 3.81 MIL/MM3 (4.50-5.90); RED CELL DISTRIBUTION WIDTH 18.3 % (11.6-17.2); WHITE BLOOD COUNT 5.9 TH/MM3 (4.0-11.0)
[2017-06-07 09:54] LABS: POTASSIUM 4.1 MEQ/L (3.5-5.1)
[2017-06-07 10:01] LABS: BICARBONATE 22.5 MEQ/L (21.0-32.0); MAGNESIUM 2.3 MG/DL (1.5-2.5)
--- NOTE | 2017-06-07 10:32 | HHI.PR ---
Subjective Remarks Follow up UTI, pneumonia, encephalopathy. Patient is more alert today, but remains confused. Denies pain, dyspnea, nausea, vomiting. Objective Vitals Vital Signs Date Time Temp Pulse Resp B/P (MAP) Pulse Ox O2 Delivery O2 Flow Rate FiO2 06/07/17 08:00 97.7 67 16 125/60 (81) 93 06/07/17 04:00 96.4 65 20 148/66 (93) 99 06/07/17 00:00 96.7 76 22 146/67 (93) 92 06/06/17 21:46 93 Venturi Mask 6.00 06/06/17 21:26 93 Venturi Mask 6.00 50 06/06/17 20:00 96.2 101 22 110/57 (74) 93 06/06/17 16:00 95.3 83 16 124/58 (80) 97 06/06/17 12:00 95.6 73 16 98/103 (101) 98 I/O 06/06/17 06/06/17 06/06/17 06/07/17 06/07/17 06/07/17 07:00 15:00 23:00 07:00 15:00 23:00 Intake Total 200 ml 520 ml Output Total 1200 ml 600 ml 900 ml Balance -1200 ml -400 ml -380 ml Intake Oral 200 ml 320 ml IV Total 200 ml Output Urine Total 1200 ml 600 ml 900 ml # Bowel Movements 0 2 Result Diagram: 06/07/17 0720 06/07/17 0720 Imaging Last Impressions Chest X-Ray 06/05/17 0000 Signed Impressions: Service Date/Time: Monday, June 05, 2017 11:45 - CONCLUSION: 1. Stable elevation of the right hemidiaphragm. 2. No confluent infiltrate but the interstitial markings are slightly more prominent when compared to the prior. While this may be partially due to the low lung volumes, some degree of vascular congestion or volume overload cannot be excluded. Nash Michaels MD CT Angiography 06/05/17 0000 Signed Impressions: Service Date/Time: Monday, June 05, 2017 20:38 - CONCLUSION: 1. No pulmonary embolus. 2. Diffuse pulmonary consolidations. These are nonspecific. Could be secondary to diffuse processes such as edema or other diffuse processes including infection or hypersensitivity. Jas Murphy MD Brain MRI 06/04/17 0000 Signed Impressions: Service Date/Time: Sunday, June 04, 2017 16:08 - CONCLUSION: Marked central and cortical atrophy with significant periventricular white matter changes, nonspecific but could be related to a demyelinating process. Chavo Salvador MD FACR Renal Ultrasound 06/01/17 0000 Signed Impressions: Service Date/Time: Thursday, June 01, 2017 18:55 - CONCLUSION: Normal examination. Jeremy Rutherford Jr., MD Head CT 05/27/17 2313 Signed Impressions: Service Date/Time: Saturday, May 27, 2017 23:18 - CONCLUSION: Atrophy. No evidence of acute intracranial pathology. Lorenzo Wang MD Objective Remarks General: Elderly male in no acute distress. Heart: Regular rate and rhythm. No murmur. Lungs: Clear to auscultation bilaterally. No wheezes, rales, or rhonchi. Breathing is somewhat labored. Abdomen: Soft, nontender, nondistended. Extremities: No lower extremity edema. Psych: Alert, confused. Procedures None Urinary Catheter: Yes Assessment to: Continue Mendoza insert reason: Obstruction/Retention Vascular Central Line Catheter: No A/P Assessment and Plan 1. Altered mental status: Possibly encephalopathy secondary to UTI, however patient's family states that this has been ongoing prior to this hospitalization. Head CT is negative. Appreciate neurology recommendations. MRI shows marked central and cortical atrophy with significant periventricular white matter changes, which are nonspecific but could be related to a demyelinating process. EEG shows encephalopathy, but no seizure activity. 2. UTI: Urine culture growing ESBL Escherichia coli and Pseudomonas. Appreciate infectious disease recommendations. Continue antibiotics. UTI is associated with chronic indwelling Mendoza catheter. 3. Urinary retention: Appreciate urology recommendations. Mendoza catheter to remain in place. 4. Hyperkalemia: Resolved. 5. Acute kidney injury: Improving. 6. Recent C. difficile colitis: Status post treatment. Repeat C. difficile study is negative. 7. Hypertension: Blood pressure is well controlled. Continue Cardura, atenolol. Furosemide on hold. 8. Diabetes mellitus type 2: Monitor Accu-Cheks and cover with sliding scale insulin. Glucose has been elevated. Resume Levemir. 9. DVT prophylaxis: Heparin. 10. Respiratory distress, hypoxia: Still requiring Ventimask. Blood cultures are negative so far. Pulmonology consultation appreciated. 11. Appreciate Palliative care consult. Poor prognosis. Discharge Planning Pending clinical improvement. Will need SNF placement. Jonathan Riley MD Jun 07, 2017 10:32
[2017-06-07] MEDS: AZITHROMYCIN INJ 500 MG in SODIUM CHLOR 0.9% 250 ML INJ 250 ML IV SCH (12:08)
[2017-06-07] MEDS: INSULIN DETEMIR 100 UNITS/ML VIAL SQ SCH ×2 (12:11→21:00)
--- NOTE | 2017-06-07 15:25 | HHI.PR ---
Subjective Remarks ALERT CONFUSED CT CHEST BILATERAL INFILTRATES INFECTION VS OTHER PLLIATIVE CARE NOTE APPRETIATED Objective Vital Signs Date Time Temp Pulse Resp B/P (MAP) Pulse Ox O2 Delivery O2 Flow Rate FiO2 06/07/17 12:00 96.0 79 16 118/58 (78) 93 06/07/17 08:00 97.7 67 16 125/60 (81) 93 06/07/17 04:00 96.4 65 20 148/66 (93) 99 06/07/17 00:00 96.7 76 22 146/67 (93) 92 06/06/17 21:46 93 Venturi Mask 6.00 06/06/17 21:26 93 Venturi Mask 6.00 50 06/06/17 20:00 96.2 101 22 110/57 (74) 93 06/06/17 16:00 95.3 83 16 124/58 (80) 97 I/O 06/06/17 06/06/17 06/06/17 06/07/17 06/07/17 06/07/17 07:00 15:00 23:00 07:00 15:00 23:00 Intake Total 200 ml 520 ml Output Total 1200 ml 600 ml 900 ml Balance -1200 ml -400 ml -380 ml Intake Oral 200 ml 320 ml IV Total 200 ml Output Urine Total 1200 ml 600 ml 900 ml # Bowel Movements 0 2 Result Diagram: 06/07/1771906/07/17719 Objective Remarks GENERAL: SKIN: Warm and dry. HEAD: Atraumatic. Normocephalic. EYES: Pupils equal and round. No scleral icterus. No injection or drainage. ENT: No nasal bleeding or discharge. Mucous membranes pink and moist. NECK: Trachea midline. No JVD. CARDIOVASCULAR: Regular rate and rhythm. RESPIRATORY: No accessory muscle use. Clear to auscultation. Breath sounds equal bilaterally. GASTROINTESTINAL: Abdomen soft, non-tender, nondistended. Hepatic and splenic margins not palpable. MUSCULOSKELETAL: Extremities without clubbing, cyanosis, or edema. No obvious deformities. NEUROLOGICAL: Awake and alert. No obvious cranial nerve deficits. Motor grossly within normal limits. Five out of 5 muscle strength in the arms and legs. Normal speech. PSYCHIATRIC: Appropriate mood and affect; insight and judgment normal. Assessment and Plan Assessment and Plan RESPIRATORY FAILURE NO PE POSSIBLE PNEUMONIA DEMENTIA PLAN PLAN O2 NEEDED ANTIBX PER ID OUTLOOK POOR Ollie,Ollie Kennedy MD Jun 07, 2017 15:25
--- NOTE | 2017-06-07 15:48 | HHI.HCPN ---
Reason for visit a. To assist with evaluation and management of symptoms including: Confusion , Shortness of breath, debility. b. To assist medical decision maker(s) with: better understanding of current medical conditions; weighing benefits/burdens of medical treatment options; making medical treatment decisions. Subjective/Interval History Mr Montiel is a 72 years old male with a past medical history of hypertension, diabetes mellitus type 2 with peripheral neuropathy , hyperlipidemia, overactive bladder, depression, PTSD, COPD, C difficile colitis and recently diagnosed multiple sclerosis. Patient currently resides in a intermediate and was noted by intermediate staff to be less alert and talkative. Patient has a chronic Mendoza catheter. Patient was sent to the ER on 05/27/17 for evaluation of altered mental status. Patient seen in his room in bed. Patient alert, and oriented to self only. Low grade Temp. SBP 120s-140s. O2 saturation low 90s on room air. Laboratory workup revealing WBC 5.9, hemoglobin 10.3, hematocrit 31.8, platelet count 274, sodium 139, potassium 4.1, BUN/creatinine 41/1.22, random glucose 336. No recent imaging. Telephone conversation with patient's daughter Colleen, updated on medical status. 1345hrs-Met with patient`s at bedside. [facility] DNR signed by patient`s . Hospice philosophy and benefits introduced. Family not ready yet for hospice, they want to give patient another chance with rehabilitation and if he continues to decline then they will consider hospice. . Family/friend interactions Telephone conversation with patient's daughter Colleen. Bedside conversation with patient's at 1545hrs Advance Directives Living Will: Never completed Health Care Surrogate: Never completed Durable Power of Knowledge Analyst: Never completed Objective Vital Signs Date Time Temp Pulse Resp B/P (MAP) Pulse Ox O2 Delivery O2 Flow Rate FiO2 06/07/17 12:00 96.0 79 16 118/58 (78) 93 06/07/17 08:00 97.7 67 16 125/60 (81) 93 06/07/17 04:00 96.4 65 20 148/66 (93) 99 06/07/17 00:00 96.7 76 22 146/67 (93) 92 06/06/17 21:46 93 Venturi Mask 6.00 06/06/17 21:26 93 Venturi Mask 6.00 50 06/06/17 20:00 96.2 101 22 110/57 (74) 93 06/06/17 16:00 95.3 83 16 124/58 (80) 97 Intake & Output 06/07/17 06/07/17 07:00 19:00 Intake Total 520 ml Output Total 900 ml Balance -380 ml Intake Oral 320 ml IV Total 200 ml Output Urine Total 900 ml # Bowel Movements 2 Physical Exam CONSTITUTIONAL/GENERAL: This is an ill looking male, in no distress. TUBES/LINES/DRAINS: PIV, FC, SKIN: No jaundice, rashes, or lesions. Ecchymoses on upper extremities. No wounds seen anteriorly. Skin temperature appropriate. Not diaphoretic. HEAD: Atraumatic. Normocephalic. EYES: Pupils equal and round and reactive. Extraocular motions intact. No scleral icterus. No injection or drainage. Fundi not examined. ENT: Hearing grossly normal. Nose without bleeding or purulent drainage. Moist oral mucosa NECK: Trachea midline. Supple, nontender. CARDIOVASCULAR: Regular rate and rhythm without murmurs, gallops, or rubs. No JVD. Peripheral pulses symmetric. RESPIRATORY/CHEST: Symmetric, unlabored respirations. Clear to auscultation. Breath sounds equal bilaterally. No wheezes, rales, or rhonchi. GASTROINTESTINAL: Abdomen soft, non-tender, nondistended. No hepato-splenomegaly , or palpable masses. No guarding. Bowel sounds present. GENITOURINARY: Without palpable bladder distension. Mendoza catheter in place. MUSCULOSKELETAL: Extremities without clubbing, cyanosis, or edema. No joint tenderness or effusion noted. No calf tenderness. No mottling or clubbing. NEUROLOGICAL: More alert today than yesterday and oriented to person only with some confusion. Motor and sensory grossly within normal limits. Follows commands. Moves all extremities. PSYCHIATRIC: No obvious anxiety/depression. no apparent hallucinations or other psychotic thought process. . Diagnostic Tests Laboratory Laboratory Tests Test 06/05/17 12:00 06/05/17 19:20 06/06/17 06:29 06/06/17 22:10 Blood Gas Puncture Site RT RADIAL Blood Gas Patient Temperature 98.6 Blood Gas HCO3 25 mmol/L (22-26) Blood Gas Base Excess 1.4 mmol/L (-2-2) Blood Gas Oxygen Saturation 96 % (90-100) Arterial Blood pH 7.44 (7.380-7.420) Arterial Blood Partial Pressure CO2 38 mmHg (38-42) Arterial Blood Partial Pressure O2 102 mmHg (61-120) Arterial Blood Oxygen Content 18.8 Vol % (12.0-20.0) Arterial Blood Carboxyhemoglobin 1.2 % (0-4) Arterial Blood Methemoglobin 0.7 % (0-2) Blood Gas Hemoglobin 13.9 G/DL (12.0-16.0) Oxygen Delivery Device Venti Mask Blood Gas Liter Flow 6 L/M Blood Gas Inspired Oxygen 50 % White Blood Count 5.9 TH/MM3 (4.0-11.0) 5.2 TH/MM3 (4.0-11.0) Red Blood Count 3.65 MIL/MM3 (4.50-5.90) 3.75 MIL/MM3 (4.50-5.90) Hemoglobin 9.8 GM/DL (13.0-17.0) 10.1 GM/DL (13.0-17.0) Hematocrit 30.6 % (39.0-51.0) 31.2 % (39.0-51.0) Mean Corpuscular Volume 83.7 FL (80.0-100.0) 83.2 FL (80.0-100.0) Mean Corpuscular Hemoglobin 26.8 PG (27.0-34.0) 26.9 PG (27.0-34.0) Mean Corpuscular Hemoglobin Concent 32.1 % (32.0-36.0) 32.3 % (32.0-36.0) Red Cell Distribution Width 18.4 % (11.6-17.2) 18.5 % (11.6-17.2) Platelet Count 234 TH/MM3 (150-450) 217 TH/MM3 (150-450) Mean Platelet Volume 8.9 FL (7.0-11.0) 9.2 FL (7.0-11.0) Neutrophils (%) (Auto) 60.9 % (16.0-70.0) 74.8 % (16.0-70.0) Lymphocytes (%) (Auto) 29.3 % (9.0-44.0) 22.3 % (9.0-44.0) Monocytes (%) (Auto) 8.5 % (0.0-8.0) 2.4 % (0.0-8.0) Eosinophils (%) (Auto) 0.7 % (0.0-4.0) 0.0 % (0.0-4.0) Basophils (%) (Auto) 0.6 % (0.0-2.0) 0.5 % (0.0-2.0) Neutrophils # (Auto) 3.6 TH/MM3 (1.8-7.7) 3.9 TH/MM3 (1.8-7.7) Lymphocytes # (Auto) 1.7 TH/MM3 (1.0-4.8) 1.2 TH/MM3 (1.0-4.8) Monocytes # (Auto) 0.5 TH/MM3 (0-0.9) 0.1 TH/MM3 (0-0.9) Eosinophils # (Auto) 0.0 TH/MM3 (0-0.4) 0.0 TH/MM3 (0-0.4) Basophils # (Auto) 0.0 TH/MM3 (0-0.2) 0.0 TH/MM3 (0-0.2) CBC Comment DIFF FINAL DIFF FINAL Differential Comment Blood Urea Nitrogen 26 MG/DL (7-18) 33 MG/DL (7-18) Creatinine 1.45 MG/DL (0.60-1.30) 1.35 MG/DL (0.60-1.30) Random Glucose 284 MG/DL (74-106) 300 MG/DL (74-106) Calcium Level 8.1 MG/DL (8.5-10.1) 8.4 MG/DL (8.5-10.1) Sodium Level 139 MEQ/L (136-145) 137 MEQ/L (136-145) Potassium Level 3.9 MEQ/L (3.5-5.1) 4.5 MEQ/L (3.5-5.1) Chloride Level 106 MEQ/L (98-107) 104 MEQ/L (98-107) Carbon Dioxide Level 26.3 MEQ/L (21.0-32.0) 25.6 MEQ/L (21.0-32.0) Anion Gap 7 MEQ/L (5-15) 7 MEQ/L (5-15) Estimat Glomerular Filtration Rate 48 ML/MIN (>89) 52 ML/MIN (>89) Total Protein 6.3 GM/DL (6.4-8.2) Albumin 1.7 GM/DL (3.4-5.0) Alkaline Phosphatase 64 U/L (45-117) Aspartate Amino Transf (AST/SGOT) 22 U/L (15-37) Alanine Aminotransferase (ALT/SGPT) 24 U/L (12-78) Total Bilirubin 0.2 MG/DL (0.2-1.0) Urine Color YELLOW (YELLW/STRAW) Urine Turbidity HAZY (CLEAR) Urine pH 5.5 (5.0-8.5) Urine Specific Early 1.023 (1.002-1.035) Urine Protein 30 mg/dL (NEG-TRACE) Urine Glucose (UA) 1000 mg/dL (NEG) Urine Ketones NEG mg/dL (NEG) Urine Occult Blood SMALL (NEG) Urine Nitrite NEG (NEG) Urine Bilirubin NEG (NEG) Urine Urobilinogen LESS THAN 2.0 MG/DL (LESS Urine Leukocyte Esterase NEG (NEG) Urine RBC 12 /hpf (0-3) Urine WBC 4 /hpf (0-5) Urine Squamous Epithelial Cells <1 /hpf (0-5) Urine Uric Acid Crystals RARE /hpf (NONE) Urine Amorphous Sediment RARE Urine Bacteria RARE /hpf (NONE) Urine Hyaline Casts 6 /lpf (RARE) Urine Mucus FEW /lpf (OCC) Microscopic Urinalysis Comment CATH-CULTURE IND Test 06/07/17 07:20 White Blood Count 5.9 TH/MM3 (4.0-11.0) Red Blood Count 3.81 MIL/MM3 (4.50-5.90) Hemoglobin 10.3 GM/DL (13.0-17.0) Hematocrit 31.8 % (39.0-51.0) Mean Corpuscular Volume 83.4 FL (80.0-100.0) Mean Corpuscular Hemoglobin 26.9 PG (27.0-34.0) Mean Corpuscular Hemoglobin Concent 32.2 % (32.0-36.0) Red Cell Distribution Width 18.3 % (11.6-17.2) Platelet Count 274 TH/MM3 (150-450) Mean Platelet Volume 9.2 FL (7.0-11.0) Neutrophils (%) (Auto) 76.8 % (16.0-70.0) Lymphocytes (%) (Auto) 18.6 % (9.0-44.0) Monocytes (%) (Auto) 4.5 % (0.0-8.0) Eosinophils (%) (Auto) 0.0 % (0.0-4.0) Basophils (%) (Auto) 0.1 % (0.0-2.0) Neutrophils # (Auto) 4.5 TH/MM3 (1.8-7.7) Lymphocytes # (Auto) 1.1 TH/MM3 (1.0-4.8) Monocytes # (Auto) 0.3 TH/MM3 (0-0.9) Eosinophils # (Auto) 0.0 TH/MM3 (0-0.4) Basophils # (Auto) 0.0 TH/MM3 (0-0.2) CBC Comment DIFF FINAL Differential Comment Blood Urea Nitrogen 41 MG/DL (7-18) Creatinine 1.22 MG/DL (0.60-1.30) Random Glucose 336 MG/DL (74-106) Calcium Level 8.6 MG/DL (8.5-10.1) Phosphorus Level 2.7 MG/DL (2.5-4.9) Magnesium Level 2.3 MG/DL (1.5-2.5) Sodium Level 139 MEQ/L (136-145) Potassium Level 4.1 MEQ/L (3.5-5.1) Chloride Level 104 MEQ/L (98-107) Carbon Dioxide Level 22.5 MEQ/L (21.0-32.0) Anion Gap 13 MEQ/L (5-15) Estimat Glomerular Filtration Rate 58 ML/MIN (>89) Result Diagram: 06/07/1720 06/07/17 0720 Microbiology Microbiology Date/Time Source Procedure Growth Status 06/05/17 19:19 Blood Peripheral Aerobic Blood Culture - Preliminary NO GROWTH IN 2 DAYS Resulted 06/05/17 19:19 Blood Peripheral Anaerobic Blood Culture - Preliminary NO GROWTH IN 2 DAYS Resulted 06/05/17 19:10 Blood Peripheral Aerobic Blood Culture - Preliminary NO GROWTH IN 2 DAYS Resulted 06/05/17 19:10 Blood Peripheral Anaerobic Blood Culture - Preliminary NO GROWTH IN 2 DAYS Resulted 06/06/17 22:10 Urine Catheterized Urine Urine Culture - Preliminary RESULTS PENDING Resulted Assessment and Plan Disease Oriented Problem List: (1) Altered mental status (2) Urinary tract infection (3) Acute kidney injury (4) COPD exacerbation (5) Diabetes mellitus Symptom Scale: (1) Shortness of breath Comment: Patient currently on 50% Ventimask. . (2) Confusion Comment: Patient admitted for altered mental status-currently confused- currently confused. . (3) Debility Comment: Progressive. Patient has been in and out of rehabilitation hospital and rehabilitation. Pertinent Non-Medical Issues Psychosocial:Patient was born and raised in [place]. Patient has been twice. He his first after 23 years of marriage and is currently to his second of 28 years. Patient met his second in the [facility]. Patient has 4 adult children, 2 sons from his first marriage and a son and a daughter from his second marriage. Patient is an [employer] with an honorable discharge and service in [place]. Patient has an ANNA. Patient worked in machinery sales until assisted. 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 Spiritual: Patient is [employer] Legal: No advance directives Ethical issues impacting care: None identified at this time. . Important Contacts Spouse- Alla Montiel [phone] Daughter- Colleen Montiel [phone] . Prognosis Mr Montiel is a 72 years old male with a past medical history of hypertension, diabetes mellitus type 2 with peripheral neuropathy , hyperlipidemia, overactive bladder, depression, PTSD, COPD, C difficile colitis and recently diagnosed multiple sclerosis. Patient currently resides in a intermediate and was noted by intermediate staff to be less alert and talkative. Patient has a chronic Mendoza catheter. Clinical course complicated by persistent altered mental status, respiratory failure and infection in urine. Patient was sent to the ER on 05/27/17 for evaluation of altered mental status. Given ongoing comorbidities, patient remains at high risk for further complications, deterioration and decline. . Code Status: No Code Plan PLAN: Legal decision maker: Patient at this time demonstrates inability to comprehend his medical status and has been confused most of the times. In the state [facility], patient`s Alla Montiel will serve as his Health Care Proxy. Goals: 06/07/17 Aggressive short of no code. Hospice philosophy and benefits introduced. Family not ready yet for hospice, they want to give patient another chance with rehabilitation and if he continues to decline then they will consider hospice. CODE STATUS: DNR/DNI SYMPTOMS: * Shortness of breath: Multifactorial. Patient his history of COPD. Currently on 50% Ventimask. Patient is on Solu-Medrol 40 mg every 8 hours ATC, Duonebs every 2 hours when necessary for dyspnea, fluticasone/Vilanterol inhaler daily * Confusion: Multifactorial. Patient came in with altered mental status. Patient treated for UTI. Remains confused. * Debility: Progressive. Patient has had multiple hospitalizations including rehabilitation in the past few months. Newly diagnosed multiple sclerosis. Recommending physical therapy and occupational therapy.Patient weighed 101 kg on 03/07/17 during his last admission and on 06/06/17 patient weighs 71.9kg. Recent albumin level is 1.7. Palliative care will continue to follow the patient during hospital course as condition evolves, to assist patient/decision-maker with understanding of their medical conditions, weighing benefits/burdens of treatment options, for clarification of goals of treatment. Additionally will assist with any symptoms of palliative concern Gloria Jones Jun 07, 2017 15:47
[2017-06-07] MEDS ORDERED: INSULIN DETEMIR 100 UNITS/ML VIAL SQ SCH (21:00)
[2017-06-07] MEDS: DOXAZOSIN MESYLATE 4 MG TAB PO SCH (21:02)
[2017-06-08] VITALS (7 sets, daily range): BP systolic 117–152; BP diastolic 59–70; PULSE 55–90; RESP 16–22; TEMP 96–97.7; O2SAT 91–100
[2017-06-08] MEDS: MEROPENEM INJ 1,000 MG in SODIUM CHLORIDE 0.9% INJ 100 ML IV SCH ×3 (04:59→22:23)
[2017-06-08] MEDS: methylPREDNISolone SOD SUCC 40 MG/1 ML VIAL IV PUSH SCH ×3 (04:59→22:16)
[2017-06-08 07:39] LABS: AUTOMATED NEUTROPHIL # 4.1 TH/MM3 (1.8-7.7); BASOPHIL % 0.1 % (0.0-2.0); HEMATOCRIT 28.9 % (39.0-51.0); HEMO FLAGS DIFF FINAL; LYMPH % 19.5 % (9.0-44.0); LYMPHOCYTE # 1.1 TH/MM3 (1.0-4.8); MEAN CELL VOLUME 81.9 FL (80.0-100.0); MEAN CORPUSCULAR HEMOGLOBIN 27.2 PG (27.0-34.0); MEAN CORPUSCULAR HGB CONC 33.2 % (32.0-36.0); MONO % 6.2 % (0.0-8.0); NEUT % 74.2 % (16.0-70.0); PLATELET COUNT 268 TH/MM3 (150-450); RED BLOOD COUNT 3.54 MIL/MM3 (4.50-5.90); RED CELL DISTRIBUTION WIDTH 17.9 % (11.6-17.2); WHITE BLOOD COUNT 5.5 TH/MM3 (4.0-11.0)
[2017-06-08 08:21] LABS: BICARBONATE 26.1 MEQ/L (21.0-32.0)
[2017-06-08 08:26] LABS: POTASSIUM 4.8 MEQ/L (3.5-5.1)
[2017-06-08] MEDS: HEPARIN SODIUM - SQ 10,000 UNITS/ML VIAL SQ SCH ×2 (08:50→22:17)
[2017-06-08] MEDS: INSULIN DETEMIR 100 UNITS/ML VIAL SQ SCH ×2 (08:51→22:22)
[2017-06-08] MEDS: INSULIN ASPART SUPPLEMENTAL SCALE SQ SCH ×4 (08:51→22:22)
[2017-06-08] MEDS: FOLIC ACID 1 MG TAB PO SCH (08:51)
[2017-06-08] MEDS: CHOLECALCIFEROL (VIT D3) 1000 UNIT TAB PO SCH (08:51)
[2017-06-08] MEDS: TAMSULOSIN HCL 0.4 MG CAP PO SCH (08:51)
[2017-06-08] MEDS: FLUTICASONE 100 MCG/VILANTEROL 25 MCG INHALER INH SCH (08:52)
[2017-06-08] MEDS: SODIUM CHLORIDE 0.9% FLUSH 10 ML FLUSH IV FLUSH SCH ×2 (08:52→22:16)
[2017-06-08] MEDS: AZITHROMYCIN INJ 500 MG in SODIUM CHLOR 0.9% 250 ML INJ 250 ML IV SCH (11:57)
--- NOTE | 2017-06-08 14:16 | HHI.PR ---
Subjective Remarks Follow-up encephalopathy, pneumonia, UTI. The patient states that he feels okay today. Denies pain, dyspnea, nausea, vomiting. He does remain confused. Objective Vitals Vital Signs Date Time Temp Pulse Resp B/P (MAP) Pulse Ox O2 Delivery O2 Flow Rate FiO2 06/08/17 12:00 96.0 60 16 139/65 (89) 100 06/08/17 08:00 97.7 90 16 138/64 (88) 91 06/08/17 04:00 96.6 55 20 148/67 (94) 99 06/08/17 00:00 96.6 63 20 152/70 (97) 98 06/07/17 21:00 Venturi Mask 6.00 06/07/17 20:16 75 06/07/17 20:00 Venturi Mask 50 06/07/17 20:00 96.2 77 22 137/64 (88) 96 06/07/17 16:00 95.5 73 16 132/63 (86) 97 I/O 06/07/17 06/07/17 06/07/17 06/08/17 06/08/17 06/08/17 07:00 15:00 23:00 07:00 15:00 23:00 Intake Total 520 ml 1350 ml 240 ml Output Total 900 ml 900 ml 950 ml Balance -380 ml 450 ml -710 ml Intake Oral 320 ml 900 ml 240 ml IV Total 200 ml 450 ml Output Urine Total 900 ml 900 ml 950 ml # Bowel Movements 2 0 2 Result Diagram: 06/08/17 0649 06/08/17 0649 Imaging Last Impressions Chest X-Ray 06/05/17 0000 Signed Impressions: Service Date/Time: Monday, June 05, 2017 11:45 - CONCLUSION: 1. Stable elevation of the right hemidiaphragm. 2. No confluent infiltrate but the interstitial markings are slightly more prominent when compared to the prior. While this may be partially due to the low lung volumes, some degree of vascular congestion or volume overload cannot be excluded. Nash Michaels MD CT Angiography 06/05/17 0000 Signed Impressions: Service Date/Time: Monday, June 05, 2017 20:38 - CONCLUSION: 1. No pulmonary embolus. 2. Diffuse pulmonary consolidations. These are nonspecific. Could be secondary to diffuse processes such as edema or other diffuse processes including infection or hypersensitivity. Jas Murphy MD Brain MRI 06/04/17 0000 Signed Impressions: Service Date/Time: Sunday, June 04, 2017 16:08 - CONCLUSION: Marked central and cortical atrophy with significant periventricular white matter changes, nonspecific but could be related to a demyelinating process. Chavo Salvador MD FACR Renal Ultrasound 06/01/17 0000 Signed Impressions: Service Date/Time: Thursday, June 01, 2017 18:55 - CONCLUSION: Normal examination. Jeremy Rutherford Jr., MD Head CT 05/27/17 2313 Signed Impressions: Service Date/Time: Saturday, May 27, 2017 23:18 - CONCLUSION: Atrophy. No evidence of acute intracranial pathology. Lorenzo Wang MD Objective Remarks General: Elderly male in no acute distress. Heart: Regular rate and rhythm. No murmur. Lungs: Clear to auscultation bilaterally. No wheezes, rales, or rhonchi. Breathing is nonlabored. Abdomen: Soft, nontender, nondistended. Extremities: No lower extremity edema. Psych: Alert, confused. States that the year is 2001, the month is February, and we are in [place]. Procedures None Urinary Catheter: Yes Assessment to: Continue Mendoza insert reason: Obstruction/Retention Vascular Central Line Catheter: No A/P Assessment and Plan 1. Encephalopathy: Possibly secondary to UTI, however patient's family states that this has been ongoing prior to this hospitalization. Head CT is negative. Appreciate neurology recommendations. MRI shows marked central and cortical atrophy with significant periventricular white matter changes, which are nonspecific but could be related to a demyelinating process. EEG shows encephalopathy, but no seizure activity. 2. UTI: Urine culture growing ESBL Escherichia coli and Pseudomonas. Appreciate infectious disease recommendations. Continue antibiotics. UTI is associated with chronic indwelling Mendoza catheter. 3. Urinary retention: Appreciate urology recommendations. Mendoza catheter to remain in place. 4. Hyperkalemia: Resolved. 5. Acute kidney injury: Improving. 6. Recent C. difficile colitis: Status post treatment. Repeat C. difficile study is negative. 7. Hypertension: Blood pressure is well controlled. Continue Cardura, atenolol. Furosemide on hold. 8. Diabetes mellitus type 2: Monitor Accu-Cheks and cover with sliding scale insulin. Glucose has been elevated. Resume Levemir. 9. DVT prophylaxis: Heparin. 10. Respiratory distress, hypoxia: Still requiring supplemental oxygen, but now tolerating nasal cannula. Blood cultures are negative so far. Pulmonology consultation appreciated. 11. Multiple sclerosis: Appreciate neurology recommendations. 12. Appreciate Palliative care consult. Poor prognosis. Discharge Planning Pending clinical improvement. Will need SNF placement. Jonathan Riley MD Jun 08, 2017 14:16
--- NOTE | 2017-06-08 15:30 | HHI.HCPN ---
Reason for visit a. To assist with evaluation and management of symptoms including: Confusion , Shortness of breath, debility. b. To assist medical decision maker(s) with: better understanding of current medical conditions; weighing benefits/burdens of medical treatment options; making medical treatment decisions. Subjective/Interval History Mr Montiel is a 72 years old male with a past medical history of hypertension, diabetes mellitus type 2 with peripheral neuropathy , hyperlipidemia, overactive bladder, depression, PTSD, COPD, C difficile colitis and recently diagnosed multiple sclerosis. Patient currently resides in a retirement and was noted by retirement staff to be less alert and talkative. Patient has a chronic Mendoza catheter. Patient was sent to the ER on 05/27/17 for evaluation of altered mental status. Patient is awake, alert and oriented to self only and remains confused. Patient is on 6L NC. Patient denies pain and does not show any signs of respiratory distress or discomfort. Patient is afebrile. SBP 130s-150s. O2 saturation low 90s to high 90s on 6L NC. Patient`s appetite fair, consuming 0-100% of his breakfast, 5-90% lunch and 0-75% dinner. Patient states that "sometimes i am not hungry or i have no appetite." Laboratory workup revealing WBC 5.5, hemoglobin 9.6, hematocrit 28.9, platelet count 268, sodium 138, potassium 4.8, BUN/creatinine 44/1.11, random glucose 168, calcium 8.4. Pulmonology and ID is following. OT and PT following. Patient unable to consistently follow commands during therapy due to confusion, recommending PT and OT at rehab. . Family/friend interactions No family at bedside during visit. . Advance Directives Living Will: Never completed Health Care Surrogate: Never completed Durable Power of Concrete Placement Equipment Operator: Never completed Objective Vital Signs Date Time Temp Pulse Resp B/P (MAP) Pulse Ox O2 Delivery O2 Flow Rate FiO2 06/08/17 12:00 96.0 60 16 139/65 (89) 100 06/08/17 08:00 97.7 90 16 138/64 (88) 91 06/08/17 04:00 96.6 55 20 148/67 (94) 99 06/08/17 00:00 96.6 63 20 152/70 (97) 98 06/07/17 21:00 Venturi Mask 6.00 06/07/17 20:16 75 06/07/17 20:00 Venturi Mask 50 06/07/17 20:00 96.2 77 22 137/64 (88) 96 06/07/17 16:00 95.5 73 16 132/63 (86) 97 Intake & Output 06/08/17 06/08/17 07:00 19:00 Intake Total 340 ml Output Total 950 ml Balance -610 ml Intake Oral 240 ml IV Total 100 ml Output Urine Total 950 ml # Bowel Movements 2 Physical Exam CONSTITUTIONAL/GENERAL: This is an ill looking male, in no distress- remains confused. TUBES/LINES/DRAINS: PIV, FC, SKIN: No jaundice, rashes, or lesions. Ecchymoses on upper extremities. No wounds seen anteriorly. Skin temperature appropriate. Not diaphoretic. HEAD: Atraumatic. Normocephalic. EYES: Pupils equal and round and reactive. Extraocular motions intact. No scleral icterus. No injection or drainage. Fundi not examined. ENT: Hearing grossly normal. Nose without bleeding or purulent drainage. Moist oral mucosa NECK: Trachea midline. Supple, nontender. CARDIOVASCULAR: Regular rate and rhythm without murmurs, gallops, or rubs. No JVD. Peripheral pulses symmetric. RESPIRATORY/CHEST: Symmetric, unlabored respirations. Clear to auscultation. Breath sounds equal bilaterally. No wheezes, rales, or rhonchi. GASTROINTESTINAL: Abdomen soft, non-tender, nondistended. No hepato-splenomegaly , or palpable masses. No guarding. Bowel sounds present. GENITOURINARY: Without palpable bladder distension. Mendoza catheter in place. MUSCULOSKELETAL: Extremities without clubbing, cyanosis, or edema. No joint tenderness or effusion noted. No calf tenderness. No mottling or clubbing. NEUROLOGICAL: Alert and oriented to person only with some confusion. Motor and sensory grossly within normal limits. Follows commands. Moves all extremities. PSYCHIATRIC: No obvious anxiety/depression. no apparent hallucinations or other psychotic thought process. . Diagnostic Tests Laboratory Laboratory Tests Test 06/05/17 19:20 06/06/17 06:29 06/06/17 22:10 06/07/17 07:20 White Blood Count 5.9 TH/MM3 (4.0-11.0) 5.2 TH/MM3 (4.0-11.0) 5.9 TH/MM3 (4.0-11.0) Red Blood Count 3.65 MIL/MM3 (4.50-5.90) 3.75 MIL/MM3 (4.50-5.90) 3.81 MIL/MM3 (4.50-5.90) Hemoglobin 9.8 GM/DL (13.0-17.0) 10.1 GM/DL (13.0-17.0) 10.3 GM/DL (13.0-17.0) Hematocrit 30.6 % (39.0-51.0) 31.2 % (39.0-51.0) 31.8 % (39.0-51.0) Mean Corpuscular Volume 83.7 FL (80.0-100.0) 83.2 FL (80.0-100.0) 83.4 FL (80.0-100.0) Mean Corpuscular Hemoglobin 26.8 PG (27.0-34.0) 26.9 PG (27.0-34.0) 26.9 PG (27.0-34.0) Mean Corpuscular Hemoglobin Concent 32.1 % (32.0-36.0) 32.3 % (32.0-36.0) 32.2 % (32.0-36.0) Red Cell Distribution Width 18.4 % (11.6-17.2) 18.5 % (11.6-17.2) 18.3 % (11.6-17.2) Platelet Count 234 TH/MM3 (150-450) 217 TH/MM3 (150-450) 274 TH/MM3 (150-450) Mean Platelet Volume 8.9 FL (7.0-11.0) 9.2 FL (7.0-11.0) 9.2 FL (7.0-11.0) Neutrophils (%) (Auto) 60.9 % (16.0-70.0) 74.8 % (16.0-70.0) 76.8 % (16.0-70.0) Lymphocytes (%) (Auto) 29.3 % (9.0-44.0) 22.3 % (9.0-44.0) 18.6 % (9.0-44.0) Monocytes (%) (Auto) 8.5 % (0.0-8.0) 2.4 % (0.0-8.0) 4.5 % (0.0-8.0) Eosinophils (%) (Auto) 0.7 % (0.0-4.0) 0.0 % (0.0-4.0) 0.0 % (0.0-4.0) Basophils (%) (Auto) 0.6 % (0.0-2.0) 0.5 % (0.0-2.0) 0.1 % (0.0-2.0) Neutrophils # (Auto) 3.6 TH/MM3 (1.8-7.7) 3.9 TH/MM3 (1.8-7.7) 4.5 TH/MM3 (1.8-7.7) Lymphocytes # (Auto) 1.7 TH/MM3 (1.0-4.8) 1.2 TH/MM3 (1.0-4.8) 1.1 TH/MM3 (1.0-4.8) Monocytes # (Auto) 0.5 TH/MM3 (0-0.9) 0.1 TH/MM3 (0-0.9) 0.3 TH/MM3 (0-0.9) Eosinophils # (Auto) 0.0 TH/MM3 (0-0.4) 0.0 TH/MM3 (0-0.4) 0.0 TH/MM3 (0-0.4) Basophils # (Auto) 0.0 TH/MM3 (0-0.2) 0.0 TH/MM3 (0-0.2) 0.0 TH/MM3 (0-0.2) CBC Comment DIFF FINAL DIFF FINAL DIFF FINAL Differential Comment Blood Urea Nitrogen 26 MG/DL (7-18) 33 MG/DL (7-18) 41 MG/DL (7-18) Creatinine 1.45 MG/DL (0.60-1.30) 1.35 MG/DL (0.60-1.30) 1.22 MG/DL (0.60-1.30) Random Glucose 284 MG/DL (74-106) 300 MG/DL (74-106) 336 MG/DL (74-106) Calcium Level 8.1 MG/DL (8.5-10.1) 8.4 MG/DL (8.5-10.1) 8.6 MG/DL (8.5-10.1) Sodium Level 139 MEQ/L (136-145) 137 MEQ/L (136-145) 139 MEQ/L (136-145) Potassium Level 3.9 MEQ/L (3.5-5.1) 4.5 MEQ/L (3.5-5.1) 4.1 MEQ/L (3.5-5.1) Chloride Level 106 MEQ/L (98-107) 104 MEQ/L (98-107) 104 MEQ/L (98-107) Carbon Dioxide Level 26.3 MEQ/L (21.0-32.0) 25.6 MEQ/L (21.0-32.0) 22.5 MEQ/L (21.0-32.0) Anion Gap 7 MEQ/L (5-15) 7 MEQ/L (5-15) 13 MEQ/L (5-15) Estimat Glomerular Filtration Rate 48 ML/MIN (>89) 52 ML/MIN (>89) 58 ML/MIN (>89) Total Protein 6.3 GM/DL (6.4-8.2) Albumin 1.7 GM/DL (3.4-5.0) Alkaline Phosphatase 64 U/L (45-117) Aspartate Amino Transf (AST/SGOT) 22 U/L (15-37) Alanine Aminotransferase (ALT/SGPT) 24 U/L (12-78) Total Bilirubin 0.2 MG/DL (0.2-1.0) Urine Color YELLOW (YELLW/STRAW) Urine Turbidity HAZY (CLEAR) Urine pH 5.5 (5.0-8.5) Urine Specific [place] 1.023 (1.002-1.035) Urine Protein 30 mg/dL (NEG-TRACE) Urine Glucose (UA) 1000 mg/dL (NEG) Urine Ketones NEG mg/dL (NEG) Urine Occult Blood SMALL (NEG) Urine Nitrite NEG (NEG) Urine Bilirubin NEG (NEG) Urine Urobilinogen LESS THAN 2.0 MG/DL (LESS Urine Leukocyte Esterase NEG (NEG) Urine RBC 12 /hpf (0-3) Urine WBC 4 /hpf (0-5) Urine Squamous Epithelial Cells <1 /hpf (0-5) Urine Uric Acid Crystals RARE /hpf (NONE) Urine Amorphous Sediment RARE Urine Bacteria RARE /hpf (NONE) Urine Hyaline Casts 6 /lpf (RARE) Urine Mucus FEW /lpf (OCC) Microscopic Urinalysis Comment CATH-CULTURE IND Phosphorus Level 2.7 MG/DL (2.5-4.9) Magnesium Level 2.3 MG/DL (1.5-2.5) Test 06/08/17 06:49 White Blood Count 5.5 TH/MM3 (4.0-11.0) Red Blood Count 3.54 MIL/MM3 (4.50-5.90) Hemoglobin 9.6 GM/DL (13.0-17.0) Hematocrit 28.9 % (39.0-51.0) Mean Corpuscular Volume 81.9 FL (80.0-100.0) Mean Corpuscular Hemoglobin 27.2 PG (27.0-34.0) Mean Corpuscular Hemoglobin Concent 33.2 % (32.0-36.0) Red Cell Distribution Width 17.9 % (11.6-17.2) Platelet Count 268 TH/MM3 (150-450) Mean Platelet Volume 9.2 FL (7.0-11.0) Neutrophils (%) (Auto) 74.2 % (16.0-70.0) Lymphocytes (%) (Auto) 19.5 % (9.0-44.0) Monocytes (%) (Auto) 6.2 % (0.0-8.0) Eosinophils (%) (Auto) 0.0 % (0.0-4.0) Basophils (%) (Auto) 0.1 % (0.0-2.0) Neutrophils # (Auto) 4.1 TH/MM3 (1.8-7.7) Lymphocytes # (Auto) 1.1 TH/MM3 (1.0-4.8) Monocytes # (Auto) 0.3 TH/MM3 (0-0.9) Eosinophils # (Auto) 0.0 TH/MM3 (0-0.4) Basophils # (Auto) 0.0 TH/MM3 (0-0.2) CBC Comment DIFF FINAL Differential Comment Blood Urea Nitrogen 44 MG/DL (7-18) Creatinine 1.11 MG/DL (0.60-1.30) Random Glucose 168 MG/DL (74-106) Calcium Level 8.4 MG/DL (8.5-10.1) Sodium Level 138 MEQ/L (136-145) Potassium Level 4.8 MEQ/L (3.5-5.1) Chloride Level 107 MEQ/L (98-107) Carbon Dioxide Level 26.1 MEQ/L (21.0-32.0) Anion Gap 5 MEQ/L (5-15) Estimat Glomerular Filtration Rate 65 ML/MIN (>89) Result Diagram: 06/08/1749 06/08/1749 Microbiology Microbiology Date/Time Source Procedure Growth Status 06/05/17 19:19 Blood Peripheral Aerobic Blood Culture - Preliminary NO GROWTH IN 3 DAYS Resulted 06/05/17 19:19 Blood Peripheral Anaerobic Blood Culture - Preliminary NO GROWTH IN 3 DAYS Resulted 06/05/17 19:10 Blood Peripheral Aerobic Blood Culture - Preliminary NO GROWTH IN 3 DAYS Resulted 06/05/17 19:10 Blood Peripheral Anaerobic Blood Culture - Preliminary NO GROWTH IN 3 DAYS Resulted 06/06/17 22:10 Urine Catheterized Urine Urine Culture - Final NO GROWTH IN 48 HOURS. Complete Assessment and Plan Disease Oriented Problem List: (1) Altered mental status (2) Urinary tract infection (3) Acute kidney injury (4) COPD exacerbation (5) Diabetes mellitus Symptom Scale: (1) Shortness of breath Comment: Patient currently on 50% Ventimask. . (2) Confusion Comment: Patient admitted for altered mental status-currently confused- currently confused. . (3) Debility Comment: Progressive. Patient has been in and out of rehabilitation hospital and rehabilitation. Pertinent Non-Medical Issues Psychosocial:Patient was born and raised in [place]. Patient has been twice. He his first after 23 years of marriage and is currently to his second of 28 years. Patient met his second in the [facility]. Patient has 4 adult children, 2 sons from his first marriage and a son and a daughter from his second marriage. Patient is an [employer] with an honorable discharge and service in [place]. Patient has an ANNA. Patient worked in machinery sales until senior care. 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 Spiritual: Patient is [employer] Legal: No advance directives Ethical issues impacting care: None identified at this time. . Important Contacts Spouse- Alla Montiel [phone] Daughter- Colleen Montiel [phone] . Prognosis Mr Montiel is a 72 years old male with a past medical history of hypertension, diabetes mellitus type 2 with peripheral neuropathy , hyperlipidemia, overactive bladder, depression, PTSD, COPD, C difficile colitis and recently diagnosed multiple sclerosis. Patient currently resides in a retirement and was noted by retirement staff to be less alert and talkative. Patient has a chronic Mendoza catheter. Clinical course complicated by persistent altered mental status, respiratory failure and infection in urine. Patient was sent to the ER on 05/27/17 for evaluation of altered mental status. Given ongoing comorbidities, patient remains at high risk for further complications, deterioration and decline. . Code Status: No Code Plan PLAN: Legal decision maker: Patient at this time demonstrates inability to comprehend his medical status and has been confused most of the times. In the state of [place], patient`s Alla Montiel will serve as his Health Care Proxy. Goals: 06/08/17 Aggressive short of no code. Family not ready yet for hospice , they want to give patient another chance with rehabilitation and if he continues to decline then they will consider hospice. CODE STATUS: DNR/DNI SYMPTOMS: * Shortness of breath: Multifactorial. Patient his history of COPD. Currently on 6 L NC, O2 saturation-low to high 90s . Patient is on Solu-Medrol 40 mg every 8 hours ATC, Duonebs every 2 hours when necessary for dyspnea, fluticasone /Vilanterol inhaler daily. * Confusion: Multifactorial. Patient came in with altered mental status. Patient treated for UTI. Remains confused. * Debility: Progressive. Patient has had multiple hospitalizations including rehabilitation in the past few months. Newly diagnosed multiple sclerosis. Physical therapy and occupational therapy following. Patient unable to consistently follow commands during therapy due to confusion, recommending PT and OT at rehab. Patient weighed 101 kg on 03/07/17 during his last admission and on 06/06/17 patient weighs 71.9kg. Recent albumin level is 1.7 and protein level 6.3. Patient`s appetite fair, consuming 0-100% of his breakfast, 5-90% lunch and 0-75% dinner. Patient states that "sometimes i am not hungry or i have no appetite." Palliative care will continue to follow the patient during hospital course as condition evolves, to assist patient/decision-maker with understanding of their medical conditions, weighing benefits/burdens of treatment options, for clarification of goals of treatment. Additionally will assist with any symptoms of palliative concern Gloria Jones Jun 08, 2017 15:30
[2017-06-08] MEDS: DOXAZOSIN MESYLATE 4 MG TAB PO SCH (22:16)
[2017-06-09] VITALS (7 sets, daily range): BP systolic 131–160; BP diastolic 62–72; PULSE 60–90; RESP 17–22; TEMP 96.1–96.7; O2SAT 90–98
[2017-06-09] MEDS: methylPREDNISolone SOD SUCC 40 MG/1 ML VIAL IV PUSH SCH ×3 (06:32→21:18)
[2017-06-09] MEDS: MEROPENEM INJ 1,000 MG in SODIUM CHLORIDE 0.9% INJ 100 ML IV SCH ×3 (06:33→21:17)
[2017-06-09] MEDS: INSULIN ASPART SUPPLEMENTAL SCALE SQ SCH ×4 (08:00→21:18)
[2017-06-09] MEDS: CHOLECALCIFEROL (VIT D3) 1000 UNIT TAB PO SCH (08:10)
[2017-06-09] MEDS: HEPARIN SODIUM - SQ 10,000 UNITS/ML VIAL SQ SCH ×2 (08:10→21:18)
[2017-06-09] MEDS: TAMSULOSIN HCL 0.4 MG CAP PO SCH (08:10)
[2017-06-09] MEDS: SODIUM CHLORIDE 0.9% FLUSH 10 ML FLUSH IV FLUSH SCH ×2 (08:10→21:17)
[2017-06-09] MEDS: FOLIC ACID 1 MG TAB PO SCH (08:10)
[2017-06-09] MEDS: FLUTICASONE 100 MCG/VILANTEROL 25 MCG INHALER INH SCH (08:11)
[2017-06-09] MEDS: INSULIN DETEMIR 100 UNITS/ML VIAL SQ SCH ×2 (08:52→21:18)
[2017-06-09] MEDS: AZITHROMYCIN INJ 500 MG in SODIUM CHLOR 0.9% 250 ML INJ 250 ML IV SCH (11:56)
[2017-06-09] MEDS: DOXAZOSIN MESYLATE 4 MG TAB PO SCH (21:17)
[2017-06-10] MEDS: methylPREDNISolone SOD SUCC 40 MG/1 ML VIAL IV PUSH SCH ×2 (04:38→12:39)
[2017-06-10] MEDS: MEROPENEM INJ 1,000 MG in SODIUM CHLORIDE 0.9% INJ 100 ML IV SCH ×3 (04:38→21:05)
[2017-06-10 05:49] VITALS: BP 146/67; PULSE 72; RESP 20; TEMP 95.5; O2SAT 94
[2017-06-10 08:00] VITALS: BP 136/65; PULSE 78; RESP 16; TEMP 95.7; O2SAT 97
[2017-06-10] MEDS: INSULIN ASPART SUPPLEMENTAL SCALE SQ SCH ×4 (08:00→21:05)
[2017-06-10] MEDS: FLUTICASONE 100 MCG/VILANTEROL 25 MCG INHALER INH SCH (08:07)
[2017-06-10] MEDS: HEPARIN SODIUM - SQ 10,000 UNITS/ML VIAL SQ SCH ×2 (08:08→21:06)
[2017-06-10] MEDS: INSULIN DETEMIR 100 UNITS/ML VIAL SQ SCH ×2 (08:08→21:05)
[2017-06-10] MEDS: SODIUM CHLORIDE 0.9% FLUSH 10 ML FLUSH IV FLUSH SCH ×2 (08:08→21:05)
[2017-06-10] MEDS: FOLIC ACID 1 MG TAB PO SCH (08:08)
[2017-06-10] MEDS: TAMSULOSIN HCL 0.4 MG CAP PO SCH (08:08)
[2017-06-10] MEDS: CHOLECALCIFEROL (VIT D3) 1000 UNIT TAB PO SCH (08:08)
--- NOTE | 2017-06-10 10:14 | HHI.PR ---
Subjective Remarks NOTE FOR 06/09/19. Patient seen around 10 AM. Patient mental status waxes and wanes. He has no complaints. Confused at times. Objective Vitals Vital Signs Date Time Temp Pulse Resp B/P (MAP) Pulse Ox O2 Delivery O2 Flow Rate FiO2 06/10/17 08:00 95.7 78 16 136/65 (88) 97 06/10/17 05:49 95.5 72 20 146/67 (93) 94 06/09/17 21:26 Nasal Cannula 2.00 06/09/17 21:10 96.1 81 20 160/72 (101) 94 06/09/17 19:55 61 06/09/17 12:00 96.7 90 18 131/65 (87) 97 I/O 06/09/17 06/09/17 06/09/17 06/10/17 06/10/17 06/10/17 07:00 15:00 23:00 07:00 15:00 23:00 Intake Total 350 ml 340 ml 200 ml Output Total 1050 ml 600 ml 1000 ml Balance -1050 ml 350 ml -260 ml -800 ml Intake Oral 240 ml 200 ml IV Total 350 ml 100 ml Output Urine Total 1050 ml 600 ml 1000 ml # Bowel Movements 0 Result Diagram: 06/08/17 0649 06/08/17 0649 Objective Remarks GENERAL: No acute distress. CARDIOVASCULAR: Regular rate and rhythm. RESPIRATORY: No accessory muscle use. Clear to auscultation. Breath sounds equal bilaterally. GASTROINTESTINAL: Abdomen soft, non-tender, nondistended. MUSCULOSKELETAL: Extremities without clubbing, cyanosis, or edema. No obvious deformities. NEUROLOGICAL: Awake and alert to self and place only. No obvious cranial nerve deficits. Normal speech. PSYCHIATRIC: Calm Procedures None A/P Assessment and Plan 72 Y/O male with: Encephalopathy: Possibly secondary to UTI, however patient's family states that this has been ongoing prior to this hospitalization. Head CT is negative. Appreciate neurology recommendations. MRI shows marked central and cortical atrophy with significant periventricular white matter changes, which are nonspecific but could be related to a demyelinating process. EEG shows encephalopathy, but no seizure activity. UTI: Urine culture growing ESBL Escherichia coli and Pseudomonas. Appreciate infectious disease recommendations. Continue antibiotics. UTI is associated with chronic indwelling Mendoza catheter. Urinary retention: Appreciate urology recommendations. Mendoza catheter to remain in place. Hypertension: Blood pressure is well controlled. Continue Cardura, atenolol. Furosemide on hold. Diabetes mellitus type 2: Monitor Accu-Cheks and cover with sliding scale insulin. Glucose has been elevated. Resume Levemir. Multiple sclerosis: Appreciate neurology recommendations. Appreciate Palliative care consult. Poor prognosis. Garry Shah MD Jun 10, 2017 10:14
[2017-06-10 12:00] VITALS: BP 130/65; PULSE 82; RESP 17; TEMP 95.7; O2SAT 93
[2017-06-10] MEDS: AZITHROMYCIN INJ 500 MG in SODIUM CHLOR 0.9% 250 ML INJ 250 ML IV SCH (12:38)
[2017-06-10] MEDS ORDERED: PRED10PA PO (13:15)
--- NOTE | 2017-06-10 13:17 | HHI.DS ---
Discharge Summary Admission Date May 28, 2017 at 03:16 Discharge Date: Jun 10, 2017 Admitting Diagnosis AMS, Dehydration, UTI (1) Encephalopathy ICD Code: G93.40 - Encephalopathy, unspecified (2) Multiple sclerosis ICD Code: G35 - Multiple sclerosis (3) Urinary retention ICD Code: R33.9 - Retention of urine, unspecified (4) Urinary tract infection ICD Code: N39.0 - Urinary tract infection, site not specified (5) Debility ICD Code: R53.81 - Other malaise Procedures None Brief History - From Admission HPI from the admitting physician. 72-year-old male who presents to the [place] emergency department with altered mental status. The patient currently resides in a fpc. The exact timeframe of his AMS is unknown. Patient was recently diagnosed with C. difficile colitis and is status post treatment. He does continue to have diarrhea however most recent C. difficile 2 days ago testing was negative. The patient was noted by his fpc staff to be less alert and talkative compared to previously and EMS was called. The patient himself is unable to provide any significant history. He is alert and oriented only to self. From ED notes, the patient's family reported that the patient's mental status has been waxing and waning symptoms for 4 months ago. He was recently treated for acute renal failure that required dialysis in March of this year. Patient has had an indwelling Mendoza since that time. Labs significant for a leukocytosis of 15.2, BUN/Cr 40/1.91 (baseline 1.4), K+ 6.2. UA c/w UTI. CBC/BMP: 06/08/17 0649 06/08/17 0649 Significant Findings Laboratory Tests Test 06/08/17 06:49 Red Blood Count 3.54 MIL/MM3 (4.50-5.90) Hemoglobin 9.6 GM/DL (13.0-17.0) Hematocrit 28.9 % (39.0-51.0) Red Cell Distribution Width 17.9 % (11.6-17.2) Neutrophils (%) (Auto) 74.2 % (16.0-70.0) Blood Urea Nitrogen 44 MG/DL (7-18) Random Glucose 168 MG/DL (74-106) Calcium Level 8.4 MG/DL (8.5-10.1) Estimat Glomerular Filtration Rate 65 ML/MIN (>89) Imaging Last Impressions Chest X-Ray 06/05/17 0000 Signed Impressions: Service Date/Time: Monday, June 05, 2017 11:45 - CONCLUSION: 1. Stable elevation of the right hemidiaphragm. 2. No confluent infiltrate but the interstitial markings are slightly more prominent when compared to the prior. While this may be partially due to the low lung volumes, some degree of vascular congestion or volume overload cannot be excluded. Nash Michaels MD CT Angiography 06/05/17 0000 Signed Impressions: Service Date/Time: Monday, June 05, 2017 20:38 - CONCLUSION: 1. No pulmonary embolus. 2. Diffuse pulmonary consolidations. These are nonspecific. Could be secondary to diffuse processes such as edema or other diffuse processes including infection or hypersensitivity. Jas Murphy MD Brain MRI 06/04/17 0000 Signed Impressions: Service Date/Time: Sunday, June 04, 2017 16:08 - CONCLUSION: Marked central and cortical atrophy with significant periventricular white matter changes, nonspecific but could be related to a demyelinating process. Chavo Salvador MD FACR Renal Ultrasound 06/01/17 0000 Signed Impressions: Service Date/Time: Thursday, June 01, 2017 18:55 - CONCLUSION: Normal examination. Jeremy Rutherford Jr., MD Head CT 05/27/17 0093 Signed Impressions: Service Date/Time: Saturday, May 27, 2017 23:18 - CONCLUSION: Atrophy. No evidence of acute intracranial pathology. Lorenzo Wang MD PE at Discharge General: Elderly male in no acute distress. Heart: Regular rate and rhythm. No murmur. Lungs: Clear to auscultation bilaterally. No wheezes, rales, or rhonchi. Breathing is nonlabored. Abdomen: Soft, nontender, nondistended. Extremities: No lower extremity edema. Psych: Alert, confused. States that the year is 2001, the month is February, and we are in [place]. Pt update on day of discharge Patient is more awake today. Still with baseline confusion. Hospital Course 72 Y/O male admitted and treated for the following: Encephalopathy: Possibly secondary to UTI, however patient's family states that this has been ongoing prior to this hospitalization. Head CT is negative. Appreciate neurology recommendations. MRI shows marked central and cortical atrophy with significant periventricular white matter changes, which are nonspecific but could be related to a demyelinating process. EEG shows encephalopathy, but no seizure activity. Mental status improved but patient remained intermittently confused. UTI: Urine culture growing ESBL Escherichia coli and Pseudomonas. Appreciate infectious disease recommendations. Continue antibiotics on discharge per ID recs. UTI is associated with chronic indwelling Mendoza catheter. Urinary retention: Appreciate urology recommendations. Mendoza catheter to remain in place. Hypertension: Blood pressure is well controlled. Continue home meds. Diabetes mellitus type 2: Monitor Accu-Cheks and cover with sliding scale insulin. Resume Levemir. Multiple sclerosis:Patient was followed by Neurology Pt Condition on Discharge: Stable Discharge Disposition: Discharge to SNF Discharge Time: > 30 minutes Discharge Instructions Speech Therapy-Diet Recommends: Pureed New Medications: Epinephrine Inj (Epinephrine Inj) 1 Mg/Ml (1 Ml) Inj 0.3 MG IV PUSH ONCE PRN for ALLERGIC REACTION, #1 VIAL Epinephrine Inj (Epinephrine Inj) 1 Mg/Ml (1 Ml) Inj 0.3 MG SQ ONCE PRN for ALLERGIC REACTION, #1 VIAL Give with any signs of respiratory distress. Hydrocortisone Inj (Solu-Cortef Inj) 250 Mg/2 Ml Inj 250 MG IV PUSH ONCE PRN for ALLERGIC REACTION, #1 VIAL 0 Refills Give over 30-60 seconds. Meropenem Inj (Meropenem Inj) 1 Gm/50 Ml Bag 1000 MG IV Q8H for Infection for 5 Days, BAG 0 Refills Prednisone (21) 10 mg tab Dose Pack (Prednisone (21) 10 mg tab Dose Pack) 10 Mg Pack 10 MG PO DIRECTED for Inflammation, #1 DSPK 0 Refills Continued Medications: Atenolol (Atenolol) 50 Mg Tab 50 MG PO DAILY for Blood Pressure Management, #30 TAB 0 Refills Calcium Polycarbophil (Fibercon) 625 Mg Tab 1250 MG PO BID, TAB 0 Refills Cholestyramine Light (Cholestyramine Light) 4 Gm/Dose Powd 4 GM PO BID for Dyslipidemia, #1 CAN 0 Refills 1 level scoopful of powder contains 4 grams of cholestyramine. Doxazosin (Cardura) 4 Mg Tab 4 MG PO HS for Blood Pressure Management, #30 TAB 0 Refills Fluticasone-Vilanterol Inh (Breo Ellipta Inh) 100-25 Mcg/Act Inh 1 PUFF INH DAILY, #1 INHALER 0 Refills Use daily at the same time. Folic Acid (Folic Acid) 0.8 Mg Tab 1 MG PO DAILY for Nutritional Supplement, TAB 0 Refills Furosemide (Furosemide) 40 Mg Tab 40 MG PO DAILY, #30 TAB 0 Refills Insulin Aspart Inj (Novolog Flexpen Inj) 300 Unit/3 Ml Pen 4 UNITS SQ TID for Blood Sugar Management, #1 PEN 0 Refills Insulin Aspart Inj (Novolog Inj) 1,000 Unit/10 Ml Vial 2-12 UNITS SQ ACHS for Blood Sugar Management, #10 ML 0 Refills Max dose at bedtime ( ) units; sugars less than 70,(0) units; sugars 150-199,(2) units; sugars 200-249,(4) units; sugars 250-299,(7) units; sugars 300-349,(10) units; sugars greater than 349,(12)units Insulin Glargine Inj (Lantus Inj) 100 Unit/Ml Inj 30 UNIT SQ HS Ipratropium-Albuterol Neb (Duoneb) 0.5-2.5 Mg/3 Ml Neb 1 NEBULE INH Q4HR NEB for SHORTNESS OF BREATH, #120 NEBULE 0 Refills Lactobacillus Rhamnosus (GG) (Culturelle) 10 Billion Cell Cap 1 CAP PO BID for Nutritional Supplement, CAP 0 Refills Omeprazole (Omeprazole) 20 Mg Tab 20 MG PO DAILY, #30 TAB 0 Refills Polysaccharide Iron Complex (Nu-Iron 150) 150 Mg Iron Cap 150 MG PO DAILY for Nutritional Supplement, #30 CAP 0 Refills Potassium Chloride ER (Potassium Chloride ER) 10 Meq Cap 20 MEQ PO BID for Electrolyte Replacement, #60 CAP 0 Refills Sertraline (Sertraline) 100 Mg Tab 100 MG PO DAILY, #30 TAB 0 Refills Tamsulosin (Flomax) 0.4 Mg Cap 0.4 MG PO DAILY for urinary retention, #30 CAP 0 Refills Discontinued Medications: Loperamide HCl (Loperamide) 2 Mg Tablet 2 MG PO TID for Diarrhea Garry Shah MD Jun 10, 2017 13:17
--- NOTE | 2017-06-10 13:58 | HHI.IDPN ---
Subjective Subjective Remarks pt is doing much better He is on RA and is fully aewake and alert repeat UA improved and culture is negative Antibiotics meropenem azithro Allergies: Coded Allergies: No Known Allergies (Unverified , 11/16/16) Objective . Vital Signs Date Time Temp Pulse Resp B/P (MAP) Pulse Ox O2 Delivery O2 Flow Rate FiO2 06/10/17 12:00 95.7 82 17 130/65 (86) 93 06/10/17 08:00 95.7 78 16 136/65 (88) 97 06/10/17 05:49 95.5 72 20 146/67 (93) 94 06/09/17 21:26 Nasal Cannula 2.00 06/09/17 21:10 96.1 81 20 160/72 (101) 94 06/09/17 19:55 61 Imaging Last Impressions Chest X-Ray 06/05/17 0000 Signed Impressions: Service Date/Time: Monday, June 05, 2017 11:45 - CONCLUSION: 1. Stable elevation of the right hemidiaphragm. 2. No confluent infiltrate but the interstitial markings are slightly more prominent when compared to the prior. While this may be partially due to the low lung volumes, some degree of vascular congestion or volume overload cannot be excluded. Nash Michaels MD CT Angiography 06/05/17 0000 Signed Impressions: Service Date/Time: Monday, June 05, 2017 20:38 - CONCLUSION: 1. No pulmonary embolus. 2. Diffuse pulmonary consolidations. These are nonspecific. Could be secondary to diffuse processes such as edema or other diffuse processes including infection or hypersensitivity. Jas Murphy MD Brain MRI 06/04/17 0000 Signed Impressions: Service Date/Time: Sunday, June 04, 2017 16:08 - CONCLUSION: Marked central and cortical atrophy with significant periventricular white matter changes, nonspecific but could be related to a demyelinating process. Chavo Salvador MD FACR Renal Ultrasound 06/01/17 0000 Signed Impressions: Service Date/Time: Thursday, June 01, 2017 18:55 - CONCLUSION: Normal examination. Jeremy Rutherford Jr., MD Head CT 05/27/17 1158 Signed Impressions: Service Date/Time: Saturday, May 27, 2017 23:18 - CONCLUSION: Atrophy. No evidence of acute intracranial pathology. Lorenzo Wang MD Physical Exam CONSTITUTIONAL/GENERAL: This is an adequately nourished patient, fully awake and alert TUBES/LINES/DRAINS: SKIN: No jaundice, rashes, or lesions. EYES: Pupils equal and round and reactive. Extraocular motions intact. No scleral icterus. No injection or drainage. Fundi not examined. ENT: Oral mucosae without visible erythema, exudates, masses, or lesions. CARDIOVASCULAR: Regular rate and rhythm without murmurs, gallops, or rubs. No JVD. Peripheral pulses symmetric. RESPIRATORY/CHEST: Symmetric, unlabored respirations. Clear to auscultation. Breath sounds equal bilaterally. No wheezes, rales, or rhonchi. GASTROINTESTINAL: Abdomen soft, non-tender, nondistended. No hepato-splenomegaly , or palpable masses. No guarding. Bowel sounds present. GENITOURINARY: Without palpable bladder distension. Chan catheter in place Urine is clear, light yellow MUSCULOSKELETAL: Extremities without clubbing, cyanosis, or edema. NEUROLOGICAL: awake, alert, makes eye contact and follows commands, speech clear, but incoherent PSYCHIATRIC: calm, coopertaive Assessment & Plan Remarks Assessment and Plan Assessment and Plan UTI, ESBL+ E.coli, PSAE yChronic chan Diarrea, abx-associated with h/o C.diff - - c.diff neg Pulmonary infiltrates with hypoxia, lielkye PNA Hypothermia - resolved Hypoxia - resolved Mental status change - resolved discharge to SNF on meropenem and azithro - 5 days of meropenem to compelte 2 weeks cours efor the UTI and mneeds 1 more day of azithro chk blood, urine clx sputum clx if feasible PICC OPAT forms filled out Cassidy Escoto Dr, RN, MD Jun 10, 2017 13:58
--- NOTE | 2017-06-10 14:06 | HHI.FF ---
Infusion Therapy Location of Infusion Therapy: [facility] Infusion Therapy Order Patient Information Patient Weight 72.3 kg Diagnosis: Diagnosis ESBL + UTI , PNA Coded Allergies: No Known Allergies (Unverified , 11/16/16) Administer Medication meropenem 1 gm IV q 8 hrs Start Treatment: Jun 10, 2017 Stop Treatment: Jun 14, 2017 Additional Information Venous access: PICC Line Additional Instructions [x] Peripheral flush and dressing changes per protocol [x] Implanted port and central personal lines insurance advisor: * Implanted port: 10 ml Normal Saline followed by 5 ml Heparin 100 units/ml Heparin flush after each use and monthly to maintain. [] May leave port accessed during therapy. [] May leave peripheral site accessed for duration of therapy. [x] If patient has SOB or respiratory distress, check oxygen saturation. If less than 90% or clinical signs of respiratory distress, administer oxygen at 2 L/min. via nasal cannula and notify physician. [x] Anaphylaxis/Reaction orders: * Stop infusion. * Keep IV line open with saline flush. * Notify physician. * Monitor vital signs every 15 minutes until symptoms resolve. * Check Oxygen saturation; Oxygen at 2 L/min. via nasal cannula if less than 90% or clinical signs of respiratory distress. * Administer diphenhydramine (Benadryl) 25 mg IV STAT, (unless patient has received as pre-med). May repeat once, if necessary. * Solu-Cortef 250 mg IVP over 30-60 seconds, use 100 mg vials for each dissolution. * Epinephrine (1mg/1 ml) 0.3 mg subcutaneously or IVP now with any signs of respiratory distress. * Check with physician for new additional pre-med orders if patient is re- challenged or re-treated. [x] May remove PICC line when treatment complete, after confirming with Physician. [x] If the patient is admitted to the hospital, the ED, or transferred via EVAC , complete transfer form including medication reconciliation order sheet. Laboratory Tests Weekly Labs: CBC w/diff, Creatinine Cassidy Salazar MD Jun 10, 2017 14:06
[2017-06-10] MEDS ORDERED: EPIN1INJ21 SQ (14:12)
[2017-06-10] MEDS ORDERED: EPIN1INJ21 IV PUSH (14:12)
[2017-06-10] MEDS ORDERED: SOLU250I IV PUSH (14:12)
--- NOTE | 2017-06-10 14:56 | HHI.PR ---
Addendum to Inpatient Note Additional Information Pt can get midline if qualifies by vascular team dw Cassidy Sandoval MD Jun 10, 2017 14:56
[2017-06-10 16:00] VITALS: BP 123/58; PULSE 78; RESP 17; TEMP 96.1; O2SAT 93
[2017-06-10 19:45] VITALS: PULSE 64
[2017-06-10] MEDS: DOXAZOSIN MESYLATE 4 MG TAB PO SCH (21:06)
[2017-06-10] MEDS: predniSONE 20 MG TAB PO SCH (21:06)
[2017-06-10 21:34] VITALS: BP 131/60; PULSE 86; RESP 20; TEMP 97.4; O2SAT 94
[2017-06-11 01:12] VITALS: BP 125/56; PULSE 65; RESP 20; TEMP 97.5; O2SAT 97
[2017-06-11 05:49] VITALS: BP 126/59; PULSE 77; RESP 20; TEMP 96.7; O2SAT 97
[2017-06-11 08:00] VITALS: BP 124/57; PULSE 74; RESP 17; TEMP 97.8; O2SAT 90
[2017-06-11] MEDS: INSULIN ASPART SUPPLEMENTAL SCALE SQ SCH ×2 (08:00→12:54)
[2017-06-11 08:02] VITALS: PULSE 65
[2017-06-11] MEDS: predniSONE 20 MG TAB PO SCH (08:37)
[2017-06-11] MEDS: CHOLECALCIFEROL (VIT D3) 1000 UNIT TAB PO SCH (08:37)
[2017-06-11] MEDS: TAMSULOSIN HCL 0.4 MG CAP PO SCH (08:37)
[2017-06-11] MEDS: FOLIC ACID 1 MG TAB PO SCH (08:37)
[2017-06-11] MEDS: SODIUM CHLORIDE 0.9% FLUSH 10 ML FLUSH IV FLUSH SCH (08:38)
[2017-06-11] MEDS: HEPARIN SODIUM - SQ 10,000 UNITS/ML VIAL SQ SCH (08:38)
[2017-06-11] MEDS: FLUTICASONE 100 MCG/VILANTEROL 25 MCG INHALER INH SCH (08:38)
[2017-06-11] MEDS ORDERED: ERTAPENEM SODIUM 1000 MG VIAL IM SCH (09:00)
[2017-06-11] MEDS ORDERED: LIDOCAINE HCL 1% 30 ML VIAL OTHER PRN (09:00)
[2017-06-11] MEDS: INSULIN DETEMIR 100 UNITS/ML VIAL SQ SCH (09:00)
[2017-06-11] MEDS ORDERED: CIPROFLOXACIN 500 MG TAB PO SCH (09:00)
[2017-06-11] MEDS ORDERED: LANTUS2P SQ (10:40)
[2017-06-11 12:00] VITALS: BP 122/59; PULSE 70; RESP 17; TEMP 96; O2SAT 96
--- NOTE | 2017-06-11 13:57 | HHI.FF ---
Infusion Therapy Location of Infusion Therapy: [facility] Infusion Therapy Order Patient Information Patient Weight 72.3 kg Diagnosis: Diagnosis ESBL + UTI Coded Allergies: No Known Allergies (Unverified , 11/16/16) Administer Medication Ertapenem 1 gram IV q 24 hours Start Treatment: Jun 11, 2017 Stop Treatment: Jun 14, 2017 Additional Information Venous access: PICC Line Additional Instructions [x] Peripheral flush and dressing changes per protocol [x] Implanted port and central wireline field operator: * Implanted port: 10 ml Normal Saline followed by 5 ml Heparin 100 units/ml Heparin flush after each use and monthly to maintain. [] May leave port accessed during therapy. [] May leave peripheral site accessed for duration of therapy. [x] If patient has SOB or respiratory distress, check oxygen saturation. If less than 90% or clinical signs of respiratory distress, administer oxygen at 2 L/min. via nasal cannula and notify physician. [x] Anaphylaxis/Reaction orders: * Stop infusion. * Keep IV line open with saline flush. * Notify physician. * Monitor vital signs every 15 minutes until symptoms resolve. * Check Oxygen saturation; Oxygen at 2 L/min. via nasal cannula if less than 90% or clinical signs of respiratory distress. * Administer diphenhydramine (Benadryl) 25 mg IV STAT, (unless patient has received as pre-med). May repeat once, if necessary. * Solu-Cortef 250 mg IVP over 30-60 seconds, use 100 mg vials for each dissolution. * Epinephrine (1mg/1 ml) 0.3 mg subcutaneously or IVP now with any signs of respiratory distress. * Check with physician for new additional pre-med orders if patient is re- challenged or re-treated. [x] May remove PICC line when treatment complete, after confirming with Physician. [x] If the patient is admitted to the hospital, the ED, or transferred via EVAC , complete transfer form including medication reconciliation order sheet. Cassidy Salazar MD Jun 11, 2017 13:57
--- NOTE | 2017-06-11 14:03 | HHI.IDPN ---
Subjective Subjective Remarks Pt was switched to cipro + Ertapenem yday doing well , on RA fully awake and alert Antibiotics ertapenem cipro Allergies: Coded Allergies: No Known Allergies (Unverified , 11/16/16) Objective . Vital Signs Date Time Temp Pulse Resp B/P (MAP) Pulse Ox O2 Delivery O2 Flow Rate FiO2 06/11/17 12:00 96.0 70 17 122/59 (80) 96 06/11/17 08:45 Nasal Cannula 2.00 06/11/17 08:00 97.8 74 17 124/57 (79) 90 06/11/17 05:49 96.7 77 20 126/59 (81) 97 06/11/17 01:12 97.5 65 20 125/56 (79) 97 06/10/17 21:34 97.4 86 20 131/60 (83) 94 06/10/17 21:16 Nasal Cannula 2.00 06/10/17 19:45 64 06/10/17 16:00 96.1 78 17 123/58 (79) 93 Imaging Last Impressions Chest X-Ray 06/05/17 0000 Signed Impressions: Service Date/Time: Monday, June 05, 2017 11:45 - CONCLUSION: 1. Stable elevation of the right hemidiaphragm. 2. No confluent infiltrate but the interstitial markings are slightly more prominent when compared to the prior. While this may be partially due to the low lung volumes, some degree of vascular congestion or volume overload cannot be excluded. Nash Michaels MD CT Angiography 06/05/17 0000 Signed Impressions: Service Date/Time: Monday, June 05, 2017 20:38 - CONCLUSION: 1. No pulmonary embolus. 2. Diffuse pulmonary consolidations. These are nonspecific. Could be secondary to diffuse processes such as edema or other diffuse processes including infection or hypersensitivity. Jas Murphy MD Brain MRI 06/04/17 0000 Signed Impressions: Service Date/Time: Sunday, June 04, 2017 16:08 - CONCLUSION: Marked central and cortical atrophy with significant periventricular white matter changes, nonspecific but could be related to a demyelinating process. Chavo Salvador MD FACR Renal Ultrasound 06/01/17 0000 Signed Impressions: Service Date/Time: Thursday, June 01, 2017 18:55 - CONCLUSION: Normal examination. Jeremy Rutherford Jr., MD Head CT 05/27/17 2313 Signed Impressions: Service Date/Time: Saturday, May 27, 2017 23:18 - CONCLUSION: Atrophy. No evidence of acute intracranial pathology. Lorenzo Wang MD Physical Exam CONSTITUTIONAL/GENERAL: This is an adequately nourished patient, fully awake and alert TUBES/LINES/DRAINS: SKIN: No jaundice, rashes, or lesions. EYES: Pupils equal and round and reactive. Extraocular motions intact. No scleral icterus. No injection or drainage. Fundi not examined. ENT: Oral mucosae without visible erythema, exudates, masses, or lesions. CARDIOVASCULAR: Regular rate and rhythm without murmurs, gallops, or rubs. No JVD. Peripheral pulses symmetric. RESPIRATORY/CHEST: Symmetric, unlabored respirations. Clear to auscultation. Breath sounds equal bilaterally. No wheezes, rales, or rhonchi. GASTROINTESTINAL: Abdomen soft, non-tender, nondistended. No hepato-splenomegaly , or palpable masses. No guarding. Bowel sounds present. GENITOURINARY: Without palpable bladder distension. Chan catheter in place Urine is clear, light yellow MUSCULOSKELETAL: Extremities without clubbing, cyanosis, or edema. NEUROLOGICAL: awake, alert, makes eye contact and follows commands, speech clear, but incoherent PSYCHIATRIC: calm, coopertaive Assessment & Plan Remarks Assessment and Plan Assessment and Plan UTI, ESBL+ E.coli, PSAE yChronic chan Diarrea, abx-associated with h/o C.diff - - c.diff neg Pulmonary infiltrates with hypoxia, lielkye PNA Hypothermia - resolved Hypoxia - resolved Mental status change - resolved; tolerates cipro discharge to SNF on ertapenem and cipro thru 06/14 OK to dc to SNF PICC or midline OPAT forms filled out Cassidy Escoto Dr, RN, MD Jun 11, 2017 14:03
[2017-06-11] MEDS ORDERED: CIPR-9 PO (14:05)
[2017-06-11] MEDS ORDERED: INVA1INJ IV (14:05)
--- NOTE | 2017-06-11 14:38 | HHI.PR ---
Subjective Remarks Patient discharged yesterday but this was held because the assisted facility would not take take him on the current antibiotics. I discussed with infectious disease and his antibiotics were adjusted. Patient tolerated well. Objective Vitals Vital Signs Date Time Temp Pulse Resp B/P (MAP) Pulse Ox O2 Delivery O2 Flow Rate FiO2 06/11/17 12:00 96.0 70 17 122/59 (80) 96 06/11/17 08:45 Nasal Cannula 2.00 06/11/17 08:02 65 06/11/17 08:00 97.8 74 17 124/57 (79) 90 06/11/17 05:49 96.7 77 20 126/59 (81) 97 06/11/17 01:12 97.5 65 20 125/56 (79) 97 06/10/17 21:34 97.4 86 20 131/60 (83) 94 06/10/17 21:16 Nasal Cannula 2.00 06/10/17 19:45 64 06/10/17 16:00 96.1 78 17 123/58 (79) 93 I/O 06/10/17 06/10/17 06/10/17 06/11/17 06/11/17 06/11/17 06:59 14:59 22:59 06:59 14:59 22:59 Intake Total 200 ml 350 ml 220 ml Output Total 1000 ml 750 ml 650 ml Balance -800 ml 350 ml -530 ml -650 ml Intake Oral 200 ml 120 ml IV Total 350 ml 100 ml Output Urine Total 1000 ml 750 ml 650 ml # Bowel Movements 2 Result Diagram: 06/08/17 0649 06/08/17 0649 Objective Remarks GENERAL: No acute distress. CARDIOVASCULAR: Regular rate and rhythm. RESPIRATORY: No accessory muscle use. Clear to auscultation. Breath sounds equal bilaterally. GASTROINTESTINAL: Abdomen soft, non-tender, nondistended. MUSCULOSKELETAL: Extremities without clubbing, cyanosis, or edema. No obvious deformities. NEUROLOGICAL: Awake and alert to self and place only. No obvious cranial nerve deficits. Normal speech. Some confusion PSYCHIATRIC: Calm Procedures None A/P Problem List: (1) Encephalopathy ICD Code: G93.40 - Encephalopathy, unspecified (2) Multiple sclerosis ICD Code: G35 - Multiple sclerosis (3) Urinary retention ICD Code: R33.9 - Retention of urine, unspecified (4) Urinary tract infection ICD Code: N39.0 - Urinary tract infection, site not specified (5) Debility ICD Code: R53.81 - Other malaise Assessment and Plan 72 Y/O male with: Encephalopathy: Possibly secondary to UTI, however patient's family states that this has been ongoing prior to this hospitalization. Head CT is negative. Appreciate neurology recommendations. MRI shows marked central and cortical atrophy with significant periventricular white matter changes, which are nonspecific but could be related to a demyelinating process. EEG shows encephalopathy, but no seizure activity. UTI: Urine culture growing ESBL Escherichia coli and Pseudomonas. Appreciate infectious disease recommendations. Continue antibiotics. UTI is associated with chronic indwelling Mendoza catheter. Antibiotics on discharge include ertapenem and Cipro per ID recommendations. Urinary retention: Appreciate urology recommendations. Mendoza catheter to remain in place. Hypertension: Blood pressure is well controlled. Continue Cardura, atenolol. Furosemide on hold. Diabetes mellitus type 2: Monitor Accu-Cheks and cover with sliding scale insulin. Glucose has been elevated. Resume Levemir. Multiple sclerosis: Appreciate neurology recommendations. Appreciate Palliative care consult. Prognosis is guarded. Garry Shah MD Jun 11, 2017 14:38
--- NOTE | 2017-06-11 15:59 | HHI.PR ---
Subjective Remarks ALERT CONFUSED CT CHEST BILATERAL INFILTRATES INFECTION VS OTHER PLLIATIVE CARE NOTE APPRETIATED Objective Vital Signs Date Time Temp Pulse Resp B/P (MAP) Pulse Ox O2 Delivery O2 Flow Rate FiO2 06/11/17 12:00 96.0 70 17 122/59 (80) 96 06/11/17 08:45 Nasal Cannula 2.00 06/11/17 08:02 65 06/11/17 08:00 97.8 74 17 124/57 (79) 90 06/11/17 05:49 96.7 77 20 126/59 (81) 97 06/11/17 01:12 97.5 65 20 125/56 (79) 97 06/10/17 21:34 97.4 86 20 131/60 (83) 94 06/10/17 21:16 Nasal Cannula 2.00 06/10/17 19:45 64 06/10/17 16:00 96.1 78 17 123/58 (79) 93 I/O 06/10/17 06/10/17 06/10/17 06/11/17 06/11/17 06/11/17 07:00 15:00 23:00 07:00 15:00 23:00 Intake Total 200 ml 350 ml 220 ml Output Total 1000 ml 750 ml 650 ml Balance -800 ml 350 ml -530 ml -650 ml Intake Oral 200 ml 120 ml IV Total 350 ml 100 ml Output Urine Total 1000 ml 750 ml 650 ml # Bowel Movements 2 Result Diagram: 06/08/1749 06/08/17 0649 Objective Remarks GENERAL: SKIN: Warm and dry. HEAD: Atraumatic. Normocephalic. EYES: Pupils equal and round. No scleral icterus. No injection or drainage. ENT: No nasal bleeding or discharge. Mucous membranes pink and moist. NECK: Trachea midline. No JVD. CARDIOVASCULAR: Regular rate and rhythm. RESPIRATORY: No accessory muscle use. Clear to auscultation. Breath sounds equal bilaterally. GASTROINTESTINAL: Abdomen soft, non-tender, nondistended. Hepatic and splenic margins not palpable. MUSCULOSKELETAL: Extremities without clubbing, cyanosis, or edema. No obvious deformities. NEUROLOGICAL: Awake and alert. No obvious cranial nerve deficits. Motor grossly within normal limits. Five out of 5 muscle strength in the arms and legs. Normal speech. PSYCHIATRIC: Appropriate mood and affect; insight and judgment normal. Medications and IVs Vital Signs Date Time Temp Pulse Resp B/P (MAP) Pulse Ox O2 Delivery O2 Flow Rate FiO2 06/11/17 12:00 96.0 70 17 122/59 (80) 96 06/11/17 08:45 Nasal Cannula 2.00 06/11/17 08:02 65 06/11/17 08:00 97.8 74 17 124/57 (79) 90 06/11/17 05:49 96.7 77 20 126/59 (81) 97 06/11/17 01:12 97.5 65 20 125/56 (79) 97 06/10/17 21:34 97.4 86 20 131/60 (83) 94 06/10/17 21:16 Nasal Cannula 2.00 06/10/17 19:45 64 06/10/17 16:00 96.1 78 17 123/58 (79) 93 Assessment and Plan Assessment and Plan RESPIRATORY FAILURE NO PE POSSIBLE PNEUMONIA DEMENTIA PLAN PLAN O2 NEEDED ANTIBX PER ID OUTLOOK [facility]OR Ollie Levin MD Jun 11, 2017 15:59
[2017-06-11 16:00] VITALS: BP 123/58; PULSE 73; RESP 17; TEMP 95.9; O2SAT 94
[2017-06-11] MEDS ORDERED: INSULIN DETEMIR 100 UNITS/ML VIAL SQ SCH (21:00)
== END 2017-06-11 17:43 | DRG 698 ==
LOC: NEPE 22:56 → INTOOBSV 05-28 02:06 → NEDA 05-28 02:06 → OBSVTOIN 05-28 03:16 → NEPHCDU 05-28 04:28 → N07B 06-01 09:30
PROVIDERS: ADMIT Family Medicine; ATTEND Family Medicine
DX: T83.511A Infection and inflammatory reaction due to indwelling urethral catheter, initial encounter (principal); G93.49 Other encephalopathy; J96.91 Respiratory failure, unspecified with hypoxia; N17.9 Acute kidney failure, unspecified; J18.9 Pneumonia, unspecified organism; I13.0 Hypertensive heart and chronic kidney disease with heart failure and stage 1 through stage 4 chronic kidney disease, or unspecified chronic kidney disease; I50.9 Heart failure, unspecified; E11.22 Type 2 diabetes mellitus with diabetic chronic kidney disease; F03.90 Unspecified dementia, unspecified severity, without behavioral disturbance, psychotic disturbance, mood disturbance, and anxiety; J44.1 Chronic obstructive pulmonary disease with (acute) exacerbation; J44.0 Chronic obstructive pulmonary disease with (acute) lower respiratory infection; E87.5 Hyperkalemia; E86.0 Dehydration; E78.5 Hyperlipidemia, unspecified; B96.20 Unspecified Escherichia coli [E. coli] as the cause of diseases classified elsewhere; G35 Multiple sclerosis; R33.9 Retention of urine, unspecified; E11.42 Type 2 diabetes mellitus with diabetic polyneuropathy; N18.9 Chronic kidney disease, unspecified; K21.9 Gastro-esophageal reflux disease without esophagitis; R68.0 Hypothermia, not associated with low environmental temperature; N39.0 Urinary tract infection, site not specified; N32.81 Overactive bladder; F32.9 Major depressive disorder, single episode, unspecified; F43.10 Post-traumatic stress disorder, unspecified; B96.5 Pseudomonas (aeruginosa) (mallei) (pseudomallei) as the cause of diseases classified elsewhere; Y84.6 Urinary catheterization as the cause of abnormal reaction of the patient, or of later complication, without mention of misadventure at the time of the procedure; Z16.12 Extended spectrum beta lactamase (ESBL) resistance; Z66 Do not resuscitate; Z79.4 Long term (current) use of insulin; Z87.891 Personal history of nicotine dependence
CPT/HCPCS: 36600; 70450; 70551; 71010; 71275; 76775; 76937; 80048; 80053; 81001; 82140; 82306; 82550; 82607; 82805; 82948; 83605; 83735; 84100; 84439; 84443; 84484; 85025; 85027; 85610; 85730; 87040; 87077; 87086; 87186; 87493; 93005; 94664; 95819; 96360; 96361; G8987-GP; G8988-GP; J0295; J0456; J0610; J0696; J1335; J1644; J1815; J1940; J2185; J2543; J2920; J7030; J7050; J7512; J7611; Q9967

== ENCOUNTER 2017-07-19 13:45 | Observation (INO) | payer MEDICARE ==
[~2017-07-19] VITALS: Ht 162.6 cm; Wt 90.0 kg
[~2017-07-19 13:45] MED LIST changes: -AMOX875T2 PO; +CHOL4POW PO; +CIPR-9 PO; +CULT10CA4 PO; -DOCU100C15 PO; +EPIN1INJ21 IV PUSH; +EPIN1INJ21 SQ; +FIBE625T PO; +FLUT1INH INH; +FOLI800T PO; +FURO40TA PO; +INVA1INJ IV; +IPRASOL INH; +LANTUS2P SQ; +METR1TAB76 PO; +NOVOINJ3 SQ; +NU-I150C PO; +OMEP20TA93 PO; -PANT40TA3 PO; +POTA10CA PO; +PRED10PA PO; -SIMV20TA PO; +SOLU250I IV PUSH; -SYMB160A INH; +VANC250C2 PO
[2017-07-19 13:52] VITALS: BP 148/68; PULSE 81; RESP 18; TEMP 98; O2SAT 97
--- NOTE | 2017-07-19 14:13 | PD ---
HPI Chief Complaint: Abdominal Pain Time Seen by Provider: 13:51 Travel History International Travel<30 days: No Contact w/Intl Traveler<30days: No History of Present Illness HPI 72-year-old male presents to the emergency department from nursing facility for evaluation of urinary retention. He apparently has had a Mendoza catheter that was not draining. The nursing staff removed the catheter and were unable to place a new catheter. The patient started complaining of low lower abdominal pain. The patient is pleasantly confused which is his baseline. He is alert to person and place, but not time. He denies any fevers or chills. No chest pain or shortness of breath. He denies any abdominal pain, nausea, vomiting, diarrhea. He has no complaints at this time. Moderate severity. PFSH Past Medical History Autoimmune Disease: Yes (MS) Anxiety: Yes Depression: Yes Cancer: No Cardiovascular Problems: No High Cholesterol: Yes Congestive Heart Failure: Yes COPD: Yes Diabetes: Yes Diminished Hearing: No Endocrine: Yes Gastrointestinal Disorders: Yes (INFECTIOUS GASTROENTERITIS COLITIS) GERD: Yes Genitourinary: No Hypertension: Yes Immune Disorder: No Musculoskeletal: No Neurologic: No Psychiatric: Yes (PTSD) Reproductive: No Respiratory: No Pneumonia: Yes Social History Alcohol Use: Yes (" will not buy anymore beer for me") Tobacco Use: Yes Substance Use: No (Denies) Allergies-Medications (Allergen,Severity, Reaction): Coded Allergies: No Known Allergies (Unverified , 11/16/16) Reported Meds & Prescriptions Reported Meds & Active Scripts Active Lantus Inj (Insulin Glargine) 100 Unit/Ml Inj 15 Unit SQ HS Cardura (Doxazosin Mesylate) 4 Mg Tab 4 Mg PO HS Flomax (Tamsulosin HCl) 0.4 Mg Cap 0.4 Mg PO DAILY Reported Tylenol (Acetaminophen) 325 Mg Tab 650 Mg PO Q6H PRN Melatonin 3 Mg Tab 3 Mg PO HS PRN Omeprazole 20 Mg Tab 20 Mg PO DAILY Novolog Inj (Insulin Aspart) 1,000 Unit/10 Ml Vial 2-10 Units SQ ACHS Sliding Scale: 0-70: Give 4oz of OJ and alirio CIFUENTES, 71-150=0 units, 151-200=2 units, 201-250=4 units, 251-300=6 units, 301-350=8 units, 351-400=10 units > 400, notifsara CIFUENTES Novolog Flexpen Inj (Insulin Aspart) 300 Unit/3 Ml Pen 4 Units SQ TIDAC Furosemide 40 Mg Tab 40 Mg PO DAILY Breo Ellipta Inh (Fluticasone/Vilanterol) 100-25 Mcg/Act Inh 1 Puff INH DAILY Use daily at the same time. Folic Acid 0.8 Mg Tab 1 Mg PO DAILY Fibercon (Calcium Polycarbophil) 625 Mg Tab 1,250 Mg PO BID Cholestyramine Light 4 Gm/Dose Powd 4 Gm PO BID 1 level scoopful of powder contains 4 grams of cholestyramine. Potassium Chloride ER (Potassium Chloride) 10 Meq Cap 20 Meq PO BID Culturelle (Lactobacillus Rhamnosus (GG)) 10 Billion Cell Cap 1 Cap PO BID Atenolol 50 Mg Tab 50 Mg PO DAILY Sertraline (Sertraline HCl) 100 Mg Tab 100 Mg PO DAILY Review of Systems Except as stated in HPI: all other systems reviewed are Neg Physical Exam Narrative GENERAL: Well-nourished, well-developed male patient, afebrile. Patient is alert and oriented to person and place, but not time. SKIN: Focused skin assessment warm/dry. HEAD: Normocephalic. Atraumatic. EYES: No scleral icterus. No injection or drainage. NECK: Supple, trachea midline. No JVD or lymphadenopathy. CARDIOVASCULAR: Regular rate and rhythm without murmurs, gallops, or rubs. RESPIRATORY: Breath sounds equal bilaterally. No accessory muscle use. Lungs sounds clear to auscultation GASTROINTESTINAL: Abdomen soft and nondistended. Patient has tenderness suprapubic region. This tenderness is resolved after Mendoza is placed. MUSCULOSKELETAL: No cyanosis, or edema. BACK: Nontender without obvious deformity. No CVA tenderness. Data Data Last Documented VS Vital Signs Date Time Temp Pulse Resp B/P (MAP) Pulse Ox O2 Delivery O2 Flow Rate FiO2 07/19/17 19:20 75 14 110/57 (74) 99 Room Air 07/19/17 13:52 98.0 Orders Orders Complete Blood Count With Diff (07/19/17 14:06) Comprehensive Metabolic Panel (07/19/17 14:06) Lipase (07/19/17 14:06) Prothrombin Time / Inr (Pt) (07/19/17 14:06) Act Partial Throm Time (Ptt) (07/19/17 14:06) Urinalysis - C+S If Indicated (07/19/17 14:06) Iv Access Insert/Monitor (07/19/17 14:06) Ecg Monitoring (07/19/17 14:06) Oximetry (07/19/17 14:06) Sodium Chloride 0.9% Flush (Ns Flush) (07/19/17 14:15) Urinary Catheter Insert/Apply (07/19/17 14:06) Ct Abd/Pel W Iv Contrast(Rout) (07/19/17 ) Urine Culture (07/19/17 14:05) Iohexol 350 Inj (Omnipaque 350 Inj) (07/19/17 15:45) Lactic Acid Sepsis Protocol (07/19/17 15:52) Blood Culture (07/19/17 15:52) Ceftriaxone Inj (Rocephin Inj) (07/19/17 16:00) Piperacil-Tazo 3.375 Gm Premix (Zosyn 3. (07/19/17 16:15) Admit Order (Ed Use Only) (07/19/17 19:24) Labs Laboratory Tests Test 07/19/17 14:05 07/19/17 14:10 07/19/17 18:10 White Blood Count 16.9 TH/MM3 Red Blood Count 4.16 MIL/MM3 Hemoglobin 11.0 GM/DL Hematocrit 33.7 % Mean Corpuscular Volume 81.2 FL Mean Corpuscular Hemoglobin 26.5 PG Mean Corpuscular Hemoglobin Concent 32.6 % Red Cell Distribution Width 18.6 % Platelet Count 286 TH/MM3 Mean Platelet Volume 8.1 FL Neutrophils (%) (Auto) 76.3 % Lymphocytes (%) (Auto) 14.3 % Monocytes (%) (Auto) 9.1 % Eosinophils (%) (Auto) 0.1 % Basophils (%) (Auto) 0.2 % Neutrophils # (Auto) 12.9 TH/MM3 Lymphocytes # (Auto) 2.4 TH/MM3 Monocytes # (Auto) 1.5 TH/MM3 Eosinophils # (Auto) 0.0 TH/MM3 Basophils # (Auto) 0.0 TH/MM3 CBC Comment AUTO DIFF Differential Total Cells Counted 100 Neutrophils % (Manual) 74 % Band Neutrophils % 3 % Lymphocytes % 12 % Monocytes % 10 % Basophils % 1 % Neutrophils # (Manual) 13.0 TH/MM3 Differential Comment FINAL DIFF MANUAL Platelet Estimate NORMAL Platelet Morphology Comment NORMAL Prothrombin Time 9.5 SEC Prothromb Time International Ratio 0.9 RATIO Activated Partial Thromboplast Time 27.3 SEC Urine Color YELLOW Urine Turbidity HAZY Urine pH 5.5 Urine Specific [place] 1.014 Urine Protein 30 mg/dL Urine Glucose (UA) NEG mg/dL Urine Ketones NEG mg/dL Urine Occult Blood LARGE Urine Nitrite NEG Urine Bilirubin NEG Urine Urobilinogen LESS THAN 2.0 MG/DL Urine Leukocyte Esterase LARGE Urine RBC /hpf Urine WBC 155 /hpf Urine Amorphous Sediment RARE Urine Bacteria MANY /hpf Urine Mucus FEW /lpf Microscopic Urinalysis Comment CULTURE INDICATED Blood Urea Nitrogen 33 MG/DL Creatinine 1.49 MG/DL Random Glucose 118 MG/DL Total Protein 6.8 GM/DL Albumin 2.8 GM/DL Calcium Level 9.3 MG/DL Alkaline Phosphatase 91 U/L Aspartate Amino Transf (AST/SGOT) 12 U/L Alanine Aminotransferase (ALT/SGPT) 13 U/L Total Bilirubin 0.2 MG/DL Sodium Level 139 MEQ/L Potassium Level 5.1 MEQ/L Chloride Level 111 MEQ/L Carbon Dioxide Level 17.3 MEQ/L Anion Gap 11 MEQ/L Estimat Glomerular Filtration Rate 46 ML/MIN Lipase 113 U/L Lactic Acid Level 1.6 mmol/L MDM Medical Decision Making Medical Screen Exam Complete: Yes Emergency Medical Condition: Yes Medical Record Reviewed: Yes Differential Diagnosis Urinary retention versus acute kidney injury versus UTI Narrative Course 72-year-old male presents to the emergency department for evaluation of urinary retention. His catheter was replaced and the nursing staff at his facility were unable to place another catheter. He has no complaints to me. He does have tenderness to the suprapubic region that is resolved after Mendoza is placed. The nurse here placed a Mendoza without difficulty. IV access established. CBC, CMP, lipase, UA are ordered and pending. CBC shows leukocytosis 16.9. CMP shows elevated BUN and creatinine of 33/1.49. Lipase is 113. UA shows large leukocyte esterase, [address] abdomen/ pelvis is ordered due to leukocytosis. This shows No definite acute abdominal/ pelvic pathology; Prominence of both collecting systems without mechanical obstruction; Diffuse enlargement of the prostate gland measuring 5.5 cm; Diffuse thickening of the urinary bladder wall. Mendoza catheter in place; Scattered diverticulosis throughout the colon. Lactic acid and blood cultures are ordered and pending. Lactic acid is 1.6. According to previous microbiology results for urine on May 27, 2017. It is positive for Escherichia coli as well as pseudomonas. This was sensitive to Zosyn. Patient started on Zosyn 3.375 g IV. Hospital is paged for observation admission for UTI, leukocytosis. Dr. Pandey accepted admission. Diagnosis Primary Impression: UTI (urinary tract infection) Qualified Codes: N39.0 - Urinary tract infection, site not specified Additional Impression: Leukocytosis Qualified Codes: D72.829 - Elevated white blood cell count, unspecified Admitting Information Admitting Physician Requests: Observation Sandra Soriano Jul 19, 2017 14:13
[2017-07-19] MEDS ORDERED: SODIUM CHLORIDE 0.9% FLUSH 10 ML FLUSH IV FLUSH PRN ×2 (14:15→19:45)
[2017-07-19] MEDS ORDERED: MELA3TAB52 PO (14:27)
[2017-07-19] MEDS ORDERED: TYLE325T PO (14:27)
[2017-07-19 14:28] LABS: AUTOMATED NEUTROPHIL # 12.9 TH/MM3 (1.8-7.7); BASOPHIL % 0.2 % (0.0-2.0); EOSINOPHIL % 0.1 % (0.0-4.0); HEMATOCRIT 33.7 % (39.0-51.0); LYMPH % 14.3 % (9.0-44.0); LYMPHOCYTE # 2.4 TH/MM3 (1.0-4.8); MEAN CELL VOLUME 81.2 FL (80.0-100.0); MEAN CORPUSCULAR HEMOGLOBIN 26.5 PG (27.0-34.0); MEAN CORPUSCULAR HGB CONC 32.6 % (32.0-36.0); MEAN PLATELET VOLUME 8.1 FL (7.0-11.0); MONO % 9.1 % (0.0-8.0); MONOCYTE # 1.5 TH/MM3 (0-0.9); NEUT % 76.3 % (16.0-70.0); PLATELET COUNT 286 TH/MM3 (150-450); RED BLOOD COUNT 4.16 MIL/MM3 (4.50-5.90); RED CELL DISTRIBUTION WIDTH 18.6 % (11.6-17.2); WHITE BLOOD COUNT 16.9 TH/MM3 (4.0-11.0)
[2017-07-19 14:30] VITALS: BP 114/58; PULSE 60; RESP 15; O2SAT 98
[2017-07-19 14:37] LABS: INTERNATIONAL NORMALIZED RATIO 0.9 RATIO; PROTHROMBIN TIME - PATIENT 9.5 SEC (9.8-11.6)
[2017-07-19 14:41] LABS: AMORPHOUS SEDIMENT, URINE RARE; BACTERIA, URINE MANY /hpf; BILIRUBIN, URINE NEG (NEG); BLOOD, URINE LARGE (NEG); GLUCOSE,URINE NEG (NEG); KETONE, URINE NEG (NEG); MUCUS URINE FEW /lpf (OCC); NITRITE,URINE NEG (NEG); PH, URINE 5.5 (5.0-8.5); URINE COLOR YELLOW (YELLW/STRAW); URINE LEUKOCYTE ESTERASE LARGE (NEG)
[2017-07-19 14:49] LABS: ALBUMIN 2.8 GM/DL (3.4-5.0); ALT (GPT) 13 U/L (12-78); AST (GOT) 12 U/L (15-37); BICARBONATE 17.3 MEQ/L (21.0-32.0); BLOOD UREA NITROGEN 33 MG/DL (7-18); CALCIUM 9.3 MG/DL (8.5-10.1); CHLORIDE 111 MEQ/L (98-107); CREATININE 1.49 MG/DL (0.60-1.30); GLOMERULAR FILTRATION RATE 46 ML/MIN (>89); GLUCOSE,RANDOM 118 MG/DL (74-106); LIPASE 113 U/L (73-393); SODIUM (NA) 139 MEQ/L (136-145)
[2017-07-19 14:51] LABS: ALKALINE PHOSPHATASE 91 U/L (45-117); TOTAL BILIRUBIN ADULT 0.2 MG/DL (0.2-1.0); TOTAL PROTEIN 6.8 GM/DL (6.4-8.2)
[2017-07-19 15:08] LABS: BANDS 3 % (0-6); BASOPHILS 1 % (0-2); LYMPHOCYTES 12 % (9-44); MONOCYTES 10 % (0-8); POLYS (SEG NEUTROPHILS) 74 % (16-70)
[2017-07-19] MEDS ORDERED: IOHEXOL 350 MG/ML 10 ML VIAL (for RAD DIAG) IVCONTRAST ONE (15:45)
[2017-07-19] MEDS ORDERED: cefTRIAXone INJ 1,000 MG in SODIUM CHLORIDE 0.9% INJ 100 ML IV ONE (16:00)
--- NOTE | 2017-07-19 16:08 | RADRPT ---
EXAM DATE/TIME: 07/19/2017 15:31 [facility] COMPARISON: No previous studies available for comparison. INDICATIONS : Abdominal pain for 2 weeks IV CONTRAST: 75 cc Omnipaque 350 (iohexol) IV ORAL CONTRAST: No oral contrast ingested. RADIATION DOSE: 6.64 CTDIvol (mGy) MEDICAL HISTORY : Congestive heart failure. Chronic obstructive pulmonary disease. Multiple sclerosis. SURGICAL HISTORY : None. ENCOUNTER: Initial ACUITY: 2 weeks PAIN SCALE: 5/10 LOCATION: diffuse abdomen TECHNIQUE: Volumetric scanning of the abdomen and pelvis was performed. Using automated exposure control and ad justment of the mA and/or kV according to patient size, radiation dose was kept as low as reasonably achievable to obtain optimal diagnostic quality images. DICOM format image data is available electro nically for review and comparison. FINDINGS: LOWER LUNGS: The visualized lower lungs are clear. LIVER: Homogeneous density without lesion. There is no dilation of the biliary tree. No calcified gallston es. SPLEEN: Normal size without lesion. PANCREAS: Within normal limits. KIDNEYS: Normal in size and shape. There is no mass or stone. There is mild prominence of both collecting sys tems but no definite mechanical obstruction. There is some prominence of the ureters bilaterally.. ADRENAL GLANDS: Within normal limits. VASCULAR: There is no aortic aneurysm. BOWEL/MESENTERY: The stomach, small bowel, and colon demonstrate no acute abnormality. There is no free intraperitone al air or fluid. There is scattered diverticulosis throughout the colon. There is no evidence of any focal inflammatory changes. The appendix is unremarkable. ABDOMINAL WALL: Within normal limits. RETROPERITONEUM: There is no lymphadenopathy. BLADDER: There is diffuse thickening of urinary bladder wall. There is a Mendoza catheter in place.. REPRODUCTIVE: Prostate measures 5.5 cm. INGUINAL: There is no lymphadenopathy or hernia. MUSCULOSKELETAL: Within normal limits for patient age. CONCLUSION: 1. No definite acute abdominal/pelvic pathology. 2. Prominence of both collecting systems without mechanical obstruction. 3. Diffuse enlargement of the prostate gland measuring 5.5 cm. 4. Diffuse thickening of the urinary bladder wall. Mendoza catheter in place. 5. Scattered diverticulosis throughout the colon.. Obi Angel MD on July 19, 2017 at 16:01 Board Certified Radiologist. This report was verified electronically.
[2017-07-19] MEDS ORDERED: PIPERACIL-TAZO 3.375 GM PREMIX 50 ML IV ONE (16:15)
--- NOTE | 2017-07-19 18:51 | PD ---
Physical Exam Narrative GENERAL: Well-nourished, well-developed patient. SKIN: Warm and dry. HEAD: Normocephalic and atraumatic. EYES: No injection or drainage. ENT: No nasal drainage noted. NECK: Supple, trachea midline. CARDIOVASCULAR: Regular rate and rhythm RESPIRATORY: no increased effort. No accessory muscle use. Data Data Last Documented VS Vital Signs Date Time Temp Pulse Resp B/P (MAP) Pulse Ox O2 Delivery O2 Flow Rate FiO2 07/19/17 14:30 60 15 114/58 (76) 98 07/19/17 13:52 98.0 Orders Orders Complete Blood Count With Diff (07/19/17 14:06) Comprehensive Metabolic Panel (07/19/17 14:06) Lipase (07/19/17 14:06) Prothrombin Time / Inr (Pt) (07/19/17 14:06) Act Partial Throm Time (Ptt) (07/19/17 14:06) Urinalysis - C+S If Indicated (07/19/17 14:06) Iv Access Insert/Monitor (07/19/17 14:06) Ecg Monitoring (07/19/17 14:06) Oximetry (07/19/17 14:06) Sodium Chloride 0.9% Flush (Ns Flush) (07/19/17 14:15) Urinary Catheter Insert/Apply (07/19/17 14:06) Ct Abd/Pel W Iv Contrast(Rout) (07/19/17 ) Urine Culture (07/19/17 14:05) Iohexol 350 Inj (Omnipaque 350 Inj) (07/19/17 15:45) Lactic Acid Sepsis Protocol (07/19/17 15:52) Blood Culture (07/19/17 15:52) Ceftriaxone Inj (Rocephin Inj) (07/19/17 16:00) Piperacil-Tazo 3.375 Gm Premix (Zosyn 3. (07/19/17 16:15) Labs Laboratory Tests Test 07/19/17 14:05 07/19/17 14:10 07/19/17 18:10 White Blood Count 16.9 TH/MM3 Red Blood Count 4.16 MIL/MM3 Hemoglobin 11.0 GM/DL Hematocrit 33.7 % Mean Corpuscular Volume 81.2 FL Mean Corpuscular Hemoglobin 26.5 PG Mean Corpuscular Hemoglobin Concent 32.6 % Red Cell Distribution Width 18.6 % Platelet Count 286 TH/MM3 Mean Platelet Volume 8.1 FL Neutrophils (%) (Auto) 76.3 % Lymphocytes (%) (Auto) 14.3 % Monocytes (%) (Auto) 9.1 % Eosinophils (%) (Auto) 0.1 % Basophils (%) (Auto) 0.2 % Neutrophils # (Auto) 12.9 TH/MM3 Lymphocytes # (Auto) 2.4 TH/MM3 Monocytes # (Auto) 1.5 TH/MM3 Eosinophils # (Auto) 0.0 TH/MM3 Basophils # (Auto) 0.0 TH/MM3 CBC Comment AUTO DIFF Differential Total Cells Counted 100 Neutrophils % (Manual) 74 % Band Neutrophils % 3 % Lymphocytes % 12 % Monocytes % 10 % Basophils % 1 % Neutrophils # (Manual) 13.0 TH/MM3 Differential Comment FINAL DIFF MANUAL Platelet Estimate NORMAL Platelet Morphology Comment NORMAL Prothrombin Time 9.5 SEC Prothromb Time International Ratio 0.9 RATIO Activated Partial Thromboplast Time 27.3 SEC Urine Color YELLOW Urine Turbidity HAZY Urine pH 5.5 Urine Specific [place] 1.014 Urine Protein 30 mg/dL Urine Glucose (UA) NEG mg/dL Urine Ketones NEG mg/dL Urine Occult Blood LARGE Urine Nitrite NEG Urine Bilirubin NEG Urine Urobilinogen LESS THAN 2.0 MG/DL Urine Leukocyte Esterase LARGE Urine RBC /hpf Urine WBC 155 /hpf Urine Amorphous Sediment RARE Urine Bacteria MANY /hpf Urine Mucus FEW /lpf Microscopic Urinalysis Comment CULTURE INDICATED Blood Urea Nitrogen 33 MG/DL Creatinine 1.49 MG/DL Random Glucose 118 MG/DL Total Protein 6.8 GM/DL Albumin 2.8 GM/DL Calcium Level 9.3 MG/DL Alkaline Phosphatase 91 U/L Aspartate Amino Transf (AST/SGOT) 12 U/L Alanine Aminotransferase (ALT/SGPT) 13 U/L Total Bilirubin 0.2 MG/DL Sodium Level 139 MEQ/L Potassium Level 5.1 MEQ/L Chloride Level 111 MEQ/L Carbon Dioxide Level 17.3 MEQ/L Anion Gap 11 MEQ/L Estimat Glomerular Filtration Rate 46 ML/MIN Lipase 113 U/L Lactic Acid Level 1.6 mmol/L MDM Supervised Visit with [facility]: Yes Interpretation(s) CBC & BMP Diagram 07/19/17 14:05 07/19/17 14:10 Total Protein 6.8, Albumin 2.8 L, Calcium Level 9.3, Alkaline Phosphatase 91, Aspartate Amino Transf (AST/SGOT) 12 L, Alanine Aminotransferase (ALT/SGPT) 13, Total Bilirubin 0.2 Last 24 hours Impressions Abdomen/Pelvis CT 07/19/17 0000 Signed Impressions: Service Date/Time: June 15:31 - CONCLUSION: 1. No definite acute abdominal/pelvic pathology. 2. Prominence of both collecting systems without mechanical obstruction. 3. Diffuse enlargement of the prostate gland measuring 5.5 cm. 4. Diffuse thickening of the urinary bladder wall. Mendoza catheter in place. 5. Scattered diverticulosis throughout the colon.. Obi Angel MD Narrative Course I, Dr. stone, have reviewed the advance practice practitioner's documentation and am in agreement, met with the patient face to face, made the diagnosis, and the medical decision making was done by me. *My assessment and Findings: 72-year-old male who has urinary tract infection and leukocytosis. His lactate is normal but has decreased bicarbonate. He will be monitored overnight with IV antibiotics Diagnosis Primary Impression: UTI (urinary tract infection) Qualified Codes: N39.0 - Urinary tract infection, site not specified Additional Impression: Leukocytosis Qualified Codes: D72.829 - Elevated white blood cell count, unspecified April Stone MD Jul 19, 2017 18:51
[2017-07-19 19:20] VITALS: BP 110/57; PULSE 75; RESP 14; O2SAT 99
--- NOTE | 2017-07-19 19:39 | HHI.HP ---
HPI Service [facility] Primary Care Physician Alexander Yadav MD (Paul) Admission Diagnosis UTI, leukocytosis Diagnoses: (1) Urinary retention Diagnosis: Principal (2) UTI (urinary tract infection) Diagnosis: Principal (3) URI (acute kidney injury) Diagnosis: Principal (4) DM (diabetes mellitus) Diagnosis: Principal (5) DNR (do not resuscitate) Diagnosis: Principal Travel History International Travel<30 Days: No Contact w/Intl Traveler <30 Da: No Traveled to Known Affected Are: No History of Present Illness This is a 72-year-old DNR male with a PMH of Anxiety, Depression, HTN, Hyperlipidemia, CHF (Unknown EF), COPD, Dementia, DM and GERD who was sent to the ER from SNF for urinary retention. Per records, pt noted to have urinary retention w/ abdominal distention, Mendoza not draining, Mendoza removed however unable to be replaced and sent to ER. Pt reports abdominal pain, however history is limited secondary to underlying Dementia. Mendoza re-inserted in ER w / 1L urine output. Pt denies any pain at this time. BP 148/68, HR 81, O2 sat 97% on RA, Afebrile. WBC 16.9. Creatinine 1.49, previously 1.11 on 06/08/17. Lactic Acid normal. INR 0.9. UA positive for UTI. CT Abd/Pelvis negative for acute abdominal/pelvic pathology, prominent collecting systems without mechanical obstruction, diffuse enlargement prostate gland measuring 5.5 cm, diffuse thickening of the urinary bladder wall. S/p Blood/Urine Cultures, Rocephin/Zosyn in ER. Review of Systems Except as stated in HPI: all other systems reviewed are Neg ROS: 14 point review of systems otherwise negative. Past Family Social History Past Medical History PMH: Anxiety, Depression, HTN, Hyperlipidemia, CHF (Unknown EF), COPD, Dementia , DM and GERD Past Surgical History PAST SURGICAL HISTORY: None Allergies: Coded Allergies: No Known Allergies (Unverified , 11/16/16) Family History PAST FAMILY HISTORY: Reviewed, positive for DM. Social History PAST SOCIAL HISTORY: Negative for alcohol, tobacco or drugs. Physical Exam Vital Signs Vital Signs Date Time Temp Pulse Resp B/P (MAP) Pulse Ox O2 Delivery O2 Flow Rate FiO2 07/19/17 19:20 75 14 110/57 (74) 99 Room Air 07/19/17 19:20 75 14 07/19/17 14:30 60 15 114/58 (76) 98 07/19/17 13:52 98.0 81 18 148/68 (94) 97 07/19/17 13:52 81 Physical Exam PE: GENERAL: Elderly white male in no acute distress. Pleasantly demented. HEENT: PERRLA, EOMI. No scleral icterus or conjunctival pallor. No lid lag or facial droop. CARDIOVASCULAR: Regular rate and rhythm. No obvious murmurs to auscultation. No chest tenderness to palpation. RESPIRATORY: No obvious rhonchi or wheezing. Clear to auscultation. Breath sounds equal bilaterally. GASTROINTESTINAL: Abdomen soft, non-tender, nondistended. BS normal. Mendoza in place. MUSCULOSKELETAL: Extremities without clubbing, cyanosis, or edema. No obvious deformities. NEUROLOGICAL: Awake, alert and oriented to person/place. No focal neurologic deficits. Moving both upper and lower extremities spontaneously. Laboratory Laboratory Tests Test 07/19/17 14:05 07/19/17 14:10 07/19/17 18:10 White Blood Count 16.9 Red Blood Count 4.16 Hemoglobin 11.0 Hematocrit 33.7 Mean Corpuscular Volume 81.2 Mean Corpuscular Hemoglobin 26.5 Mean Corpuscular Hemoglobin Concent 32.6 Red Cell Distribution Width 18.6 Platelet Count 286 Mean Platelet Volume 8.1 Neutrophils (%) (Auto) 76.3 Lymphocytes (%) (Auto) 14.3 Monocytes (%) (Auto) 9.1 Eosinophils (%) (Auto) 0.1 Basophils (%) (Auto) 0.2 Neutrophils # (Auto) 12.9 Lymphocytes # (Auto) 2.4 Monocytes # (Auto) 1.5 Eosinophils # (Auto) 0.0 Basophils # (Auto) 0.0 CBC Comment AUTO DIFF Differential Total Cells Counted 100 Neutrophils % (Manual) 74 Band Neutrophils % 3 Lymphocytes % 12 Monocytes % 10 Basophils % 1 Neutrophils # (Manual) 13.0 Differential Comment FINAL DIFF MANUAL Platelet Estimate NORMAL Platelet Morphology Comment NORMAL Prothrombin Time 9.5 Prothromb Time International Ratio 0.9 Activated Partial Thromboplast Time 27.3 Urine Color YELLOW Urine Turbidity HAZY Urine pH 5.5 Urine Specific [place] 1.014 Urine Protein 30 Urine Glucose (UA) NEG Urine Ketones NEG Urine Occult Blood LARGE Urine Nitrite NEG Urine Bilirubin NEG Urine Urobilinogen LESS THAN 2.0 Urine Leukocyte Esterase LARGE Urine RBC Urine WBC 155 Urine Amorphous Sediment RARE Urine Bacteria MANY Urine Mucus FEW Microscopic Urinalysis Comment CULTURE INDICATED Blood Urea Nitrogen 33 Creatinine 1.49 Random Glucose 118 Total Protein 6.8 Albumin 2.8 Calcium Level 9.3 Alkaline Phosphatase 91 Aspartate Amino Transf (AST/SGOT) 12 Alanine Aminotransferase (ALT/SGPT) 13 Total Bilirubin 0.2 Sodium Level 139 Potassium Level 5.1 Chloride Level 111 Carbon Dioxide Level 17.3 Anion Gap 11 Estimat Glomerular Filtration Rate 46 Lipase 113 Lactic Acid Level 1.6 Date/Time Source Procedure Growth Status 07/19/17 18:15 Blood Peripheral Aerobic Blood Culture Pending Received 07/19/17 18:15 Blood Peripheral Anaerobic Blood Culture Pending Received 07/19/17 14:05 Urine Random Urine Urine Culture Pending Received Result Diagram: 07/19/17 1405 07/19/17 1410 Caprini VTE Risk Assessment Caprini VTE Risk Assessment: No/Low Risk (score <= 1) Caprini Risk Assessment Model Point Value = 1 Point Value = 2 Point Value = 3 Point Value = 5 Age 41-60 Minor surgery BMI > 25 kg/m2 Swollen legs Varicose veins or History of unexplained or recurrent spontaneous Oral contraceptives or hormone replacement Sepsis (< 1 month) Serious lung disease, including pneumonia (< 1 month) Abnormal pulmonary function Acute myocardial infarction Congestive heart failure (< 1 month) History of inflammatory bowel disease Medical patient at bed rest Age 61-74 Arthroscopic surgery Major open surgery (> 45 min) Laparoscopic surgery (> 45 min) Malignancy Confined to bed (> 72 hours) Immobilizing plaster cast Central venous access Age >= 75 History of VTE Family history of VTE Factor V Leiden Prothrombin [id number] Lupus anticoagulant Anticardiolipin antibodies Elevated serum homocysteine Heparin-induced thrombocytopenia Other congenital or acquired thrombophilia Stroke (< 1 month) Elective arthroplasty Hip, pelvis, or leg fracture Acute spinal cord injury (< 1 month) Prophylaxis Regimen Total Risk Factor Score Risk Level Prophylaxis Regimen 0-1 Low Early ambulation 2 Moderate Order ONE of the following: *Sequential Compression Device (SCD) *Heparin 5000 units SQ BID 3-4 Higher Order ONE of the following medications: *Heparin 5000 units SQ TID *Enoxaparin/Lovenox 40 mg SQ daily (WT < 150 kg, CrCl > 30 mL/min) *Enoxaparin/Lovenox 30 mg SQ daily (WT < 150 kg, CrCl > 10-29 mL/min) *Enoxaparin/Lovenox 30 mg SQ BID (WT < 150 kg, CrCl > 30 mL/min) AND/OR *Sequential Compression Device (SCD) 5 or more Highest Order ONE of the following medications: *Heparin 5000 units SQ TID (Preferred with Epidurals) *Enoxaparin/Lovenox 40 mg SQ daily (WT < 150 kg, CrCl > 30 mL/min) *Enoxaparin/Lovenox 30 mg SQ daily (WT < 150 kg, CrCl > 10-29 mL/min) *Enoxaparin/Lovenox 30 mg SQ BID (WT < 150 kg, CrCl > 30 mL/min) AND *Sequential Compression Device (SCD) Assessment and Plan Problem List: (1) UTI (urinary tract infection) ICD Code: N39.0 - Urinary tract infection, site not specified Status: Acute (2) Urinary retention ICD Code: R33.9 - Retention of urine, unspecified (3) URI (acute kidney injury) ICD Code: N17.9 - Acute kidney failure, unspecified (4) DM (diabetes mellitus) ICD Code: E11.9 - Type 2 diabetes mellitus without complications (5) DNR (do not resuscitate) ICD Code: Z66 - Do not resuscitate Assessment and Plan A/P: 1. Urinary Retention: sent to ER from SNF after Mendoza not draining, + suprapubic tenderness, Mendoza successfully placed in ER, 1L urinary output following Mendoza placement. Monitor I/O, IVF to replace volume loss. CT Abd/ Pelvis w/ prominent collecting systems without obstruction, diffuse enlargement of prostate gland and thickening of urinary bladder wall, images reviewed by me. Resume home Flomax. Continue w/ diuresis, monitor electrolytes. 2. UTI: U/a w/ UTI. S/p Blood/Urine Cultures, Rocephin/Zosyn in ER. Reviewed previous records, Urine Culture 05/27/17 +E.Coli, resistant to Rocephin , will continue w/ Zosyn. Follow up cultures. 3. URI: Creatinine 1.49, previously 1.11 on 06/08/17. Likely secondary to urinary retention combined with UTI. IVF for hydration, repeat labs in am, monitor I/O. 4. DM: Sliding scale w/ Accu-Cheks. Resume home Lantus. 5. DNR: Code Status confirmed, DNR in chart. 6. DVT Prophylaxis: SCD/Teds. 7. Social work for d/c planning as needed 8. Previous labs/records reviewed, case discussed at length w/ ER physician. Problem Qualifiers (1) UTI (urinary tract infection): Qualified Codes: N39.0 - Urinary tract infection, site not specified Anyi Pandey MD Jul 19, 2017 19:39
[2017-07-19] MEDS ORDERED: BISACODYL 10 MG SUPP RECTAL PRN (19:45)
[2017-07-19] MEDS ORDERED: ACETAMINOPHEN 325 MG TAB PO PRN (19:45)
[2017-07-19] MEDS ORDERED: MAGNESIUM HYDROXIDE SUSP 30 ML CUP PO PRN (19:45)
[2017-07-19] MEDS ORDERED: ACETAMINOPHEN/HYDROcodone 325 MG/5 MG TAB PO PRN (19:45)
[2017-07-19] MEDS ORDERED: MORPHINE SULFATE 2 MG/ML INJ IV PUSH PRN (19:45)
[2017-07-19] MEDS ORDERED: GLUCAGON 1 MG/ML VIAL OTHER PRN (19:45)
[2017-07-19] MEDS ORDERED: DEXTROSE 50% IN WATER 50 ML VIAL(D50) IV PUSH PRN (19:45)
[2017-07-19] MEDS ORDERED: SENNOSIDES 8.6 MG TAB PO PRN (19:45)
[2017-07-19] MEDS ORDERED: ONDANSETRON HCL 4 MG/2 ML VIAL IVP PRN (19:45)
[2017-07-19] MEDS ORDERED: LACTULOSE SYRUP 20 GM/30 ML CUP PO PRN (19:45)
[2017-07-19] MEDS ORDERED: MELATONIN 5 MG TAB PO PRN (20:00)
[2017-07-19] MEDS: SODIUM CHLOR 0.9% 1000 ML INJ 1,000 ML IV SCH (22:23)
[2017-07-19] MEDS: DOCUSATE SODIUM 50 MG/SENNA 8.6 MG TAB PO SCH (22:23)
[2017-07-19] MEDS: CHOLESTYRAMINE LIGHT 4 GM PACKAGE PO SCH (22:23)
[2017-07-19] MEDS: DOXAZOSIN MESYLATE 4 MG TAB PO SCH (22:23)
[2017-07-19] MEDS: INSULIN DETEMIR 100 UNITS/ML VIAL SQ SCH (22:24)
[2017-07-19] MEDS: INSULIN ASPART SUPPLEMENTAL SCALE SQ SCH (22:24)
[2017-07-19] MEDS: SODIUM CHLORIDE 0.9% FLUSH 10 ML FLUSH IV FLUSH SCH (22:25)
[2017-07-20] VITALS (7 sets, daily range): BP systolic 93–111; BP diastolic 50–71; PULSE 58–70; RESP 17–18; TEMP 96.2–98.2; O2SAT 94–97
[2017-07-20] MEDS: PIPERACIL-TAZO 3.375 GM PREMIX 50 ML IV SCH ×4 (06:17→23:37)
[2017-07-20] MEDS: SODIUM CHLOR 0.9% 1000 ML INJ 1,000 ML IV SCH ×3 (06:17→23:37)
[2017-07-20] MEDS: INSULIN ASPART SUPPLEMENTAL SCALE SQ SCH ×4 (07:32→21:00)
[2017-07-20] MEDS: INSULIN ASPART 1,000 UNITS/10 ML VIAL SQ SCH ×3 (07:32→17:58)
[2017-07-20] MEDS: DOCUSATE SODIUM 50 MG/SENNA 8.6 MG TAB PO SCH ×2 (09:00→20:26)
[2017-07-20] MEDS: SODIUM CHLORIDE 0.9% FLUSH 10 ML FLUSH IV FLUSH SCH ×2 (09:00→21:00)
[2017-07-20] MEDS: FUROSEMIDE 40 MG TAB PO SCH (09:17)
[2017-07-20] MEDS: SERTRALINE HCL 100 MG TAB PO SCH (09:17)
[2017-07-20] MEDS: FOLIC ACID 1 MG TAB PO SCH (09:17)
[2017-07-20] MEDS: PANTOPRAZOLE SOD 20 MG DELAYED RELEASE TAB PO SCH (09:17)
[2017-07-20] MEDS: ATENOLOL 50 MG TAB PO SCH (09:17)
[2017-07-20] MEDS: TAMSULOSIN HCL 0.4 MG CAP PO SCH (09:18)
[2017-07-20] MEDS: CHOLESTYRAMINE LIGHT 4 GM PACKAGE PO SCH ×2 (10:46→23:32)
[2017-07-20] MEDS: FLUTICASONE 100 MCG/VILANTEROL 25 MCG INHALER INH SCH (10:46)
[2017-07-20] MEDS ORDERED: BACT800T5 PO (11:25)
--- NOTE | 2017-07-20 11:27 | HHI.DS ---
Discharge Summary Admission Date Jul 19, 2017 at 19:25 Discharge Date: Jul 20, 2017 Admitting Diagnosis UTI, leukocytosis (1) UTI (urinary tract infection) ICD Code: N39.0 - Urinary tract infection, site not specified Diagnosis: Principal Status: Acute (2) Urinary retention ICD Code: R33.9 - Retention of urine, unspecified Diagnosis: Principal (3) URI (acute kidney injury) ICD Code: N17.9 - Acute kidney failure, unspecified Diagnosis: Principal (4) DM (diabetes mellitus) ICD Code: E11.9 - Type 2 diabetes mellitus without complications Diagnosis: Secondary (5) DNR (do not resuscitate) ICD Code: Z66 - Do not resuscitate Diagnosis: Secondary Brief History - From Admission This is a 72-year-old DNR male with a PMH of Anxiety, Depression, HTN, Hyperlipidemia, CHF (Unknown EF), COPD, Dementia, DM and GERD who was sent to the ER from SNF for urinary retention. Per records, pt noted to have urinary retention w/ abdominal distention, Mendoza not draining, Mendoza removed however unable to be replaced and sent to ER. Pt reports abdominal pain, however history is limited secondary to underlying Dementia. Mendoza re-inserted in ER w / 1L urine output. Pt denies any pain at this time. BP 148/68, HR 81, O2 sat 97% on RA, Afebrile. WBC 16.9. Creatinine 1.49, previously 1.11 on 06/08/17. Lactic Acid normal. INR 0.9. UA positive for UTI. CT Abd/Pelvis negative for acute abdominal/pelvic pathology, prominent collecting systems without mechanical obstruction, diffuse enlargement prostate gland measuring 5.5 cm, diffuse thickening of the urinary bladder wall. S/p Blood/Urine Cultures, Rocephin/Zosyn in ER. CBC/BMP: 07/19/17 1405 07/19/17 1410 Significant Findings Laboratory Tests Test 07/19/17 14:05 07/19/17 14:10 07/19/17 18:10 White Blood Count 16.9 TH/MM3 (4.0-11.0) Red Blood Count 4.16 MIL/MM3 (4.50-5.90) Hemoglobin 11.0 GM/DL (13.0-17.0) Hematocrit 33.7 % (39.0-51.0) Mean Corpuscular Hemoglobin 26.5 PG (27.0-34.0) Red Cell Distribution Width 18.6 % (11.6-17.2) Neutrophils (%) (Auto) 76.3 % (16.0-70.0) Monocytes (%) (Auto) 9.1 % (0.0-8.0) Neutrophils # (Auto) 12.9 TH/MM3 (1.8-7.7) Monocytes # (Auto) 1.5 TH/MM3 (0-0.9) Neutrophils % (Manual) 74 % (16-70) Monocytes % 10 % (0-8) Neutrophils # (Manual) 13.0 TH/MM3 (1.8-7.7) Prothrombin Time 9.5 SEC (9.8-11.6) Urine Turbidity HAZY (CLEAR) Urine Protein 30 mg/dL (NEG-TRACE) Urine Occult Blood LARGE (NEG) Urine Leukocyte Esterase LARGE (NEG) Urine WBC 155 /hpf (0-5) Urine Bacteria MANY /hpf (NONE) Urine Mucus FEW /lpf (OCC) Blood Urea Nitrogen 33 MG/DL (7-18) Creatinine 1.49 MG/DL (0.60-1.30) Random Glucose 118 MG/DL (74-106) Albumin 2.8 GM/DL (3.4-5.0) Aspartate Amino Transf (AST/SGOT) 12 U/L (15-37) Chloride Level 111 MEQ/L (98-107) Carbon Dioxide Level 17.3 MEQ/L (21.0-32.0) Estimat Glomerular Filtration Rate 46 ML/MIN (>89) Hospital Course Mr. Montiel is a 72-year-old male admitted secondary to urinary obstruction with urinary tract infection and acute kidney injury. Urinary obstruction was secondary to a chronic indwelling Mendoza catheter which become obstructed. Obstruction may be secondary to infection or vice versa. Mendoza catheter has been replaced. Patient has good urine output now. She has a previous history of infection of the urine with Escherichia coli. Antibiotic selection has been made based on last infection cultures will continue to be monitored. At this point he is stable for discharge back to his nursing home facility with Bactrim. Renal function has improved since placement of Mendoza catheter. Pt Condition on Discharge: Stable Discharge Disposition: Discharge to SNF Discharge Time: > 30 minutes Discharge Instructions DIET: Follow Instructions for: As Tolerated, No Restrictions Activities you can perform: Regular-No Restrictions Other Activity Instructions: With assistance Follow up Referrals: PCP Follow-up - 2 Weeks New Medications: Sulfamethoxazole-Trimethoprim (Bactrim DS) 800-160 Mg Tab 1 TAB PO BID for Infection, #14 TAB 0 Refills Continued Medications: Acetaminophen (Tylenol) 325 Mg Tab 650 MG PO Q6H PRN for PAIN, TAB 0 Refills Atenolol (Atenolol) 50 Mg Tab 50 MG PO DAILY for Blood Pressure Management, #30 TAB 0 Refills Calcium Polycarbophil (Fibercon) 625 Mg Tab 1250 MG PO BID, TAB 0 Refills Cholestyramine Light (Cholestyramine Light) 4 Gm/Dose Powd 4 GM PO BID for Dyslipidemia, #1 CAN 0 Refills 1 level scoopful of powder contains 4 grams of cholestyramine. Doxazosin (Cardura) 4 Mg Tab 4 MG PO HS for Blood Pressure Management, #30 TAB 0 Refills Fluticasone-Vilanterol Inh (Breo Ellipta Inh) 100-25 Mcg/Act Inh 1 PUFF INH DAILY, #1 INHALER 0 Refills Use daily at the same time. Folic Acid (Folic Acid) 0.8 Mg Tab 1 MG PO DAILY for Nutritional Supplement, TAB 0 Refills Furosemide (Furosemide) 40 Mg Tab 40 MG PO DAILY, #30 TAB 0 Refills Insulin Aspart Inj (Novolog Flexpen Inj) 300 Unit/3 Ml Pen 4 UNITS SQ TIDAC for Blood Sugar Management, #1 PEN 0 Refills Insulin Aspart Inj (Novolog Inj) 1,000 Unit/10 Ml Vial 2-10 UNITS SQ ACHS for Blood Sugar Management, #10 ML 0 Refills Sliding Scale: 0-70: Give 4oz of [place] and notify , 71-150=0 units, 151-200=2 units, 201-250=4 units, 251-300=6 units, 301-350=8 units, 351-400=10 units > 400, notify Insulin Glargine Inj (Lantus Inj) 100 Unit/Ml Inj 15 UNIT SQ HS, #30 INJECTION Lactobacillus Rhamnosus (GG) (Culturelle) 10 Billion Cell Cap 1 CAP PO BID for Nutritional Supplement, CAP 0 Refills Melatonin (Melatonin) 3 Mg Tab 3 MG PO HS PRN for SLEEP Omeprazole (Omeprazole) 20 Mg Tab 20 MG PO DAILY, #30 TAB 0 Refills Potassium Chloride ER (Potassium Chloride ER) 10 Meq Cap 20 MEQ PO BID for Electrolyte Replacement, #60 CAP 0 Refills Sertraline (Sertraline) 100 Mg Tab 100 MG PO DAILY, #30 TAB 0 Refills Tamsulosin (Flomax) 0.4 Mg Cap 0.4 MG PO DAILY for urinary retention, #30 CAP 0 Refills Elliott Streeter MD Jul 20, 2017 11:27
[2017-07-20 12:53] LABS: AUTOMATED NEUTROPHIL # 10.9 TH/MM3 (1.8-7.7); BASOPHIL % 0.3 % (0.0-2.0); EOSINOPHIL % 0.2 % (0.0-4.0); HEMATOCRIT 30.9 % (39.0-51.0); HEMOGLOBIN 10.1 GM/DL (13.0-17.0); LYMPH % 16.9 % (9.0-44.0); LYMPHOCYTE # 2.5 TH/MM3 (1.0-4.8); MEAN CELL VOLUME 82.2 FL (80.0-100.0); MEAN CORPUSCULAR HGB CONC 32.9 % (32.0-36.0); MEAN PLATELET VOLUME 8.1 FL (7.0-11.0); MONO % 9.6 % (0.0-8.0); MONOCYTE # 1.4 TH/MM3 (0-0.9); PLATELET COUNT 253 TH/MM3 (150-450); RED BLOOD COUNT 3.76 MIL/MM3 (4.50-5.90); RED CELL DISTRIBUTION WIDTH 18.4 % (11.6-17.2)
[2017-07-20 13:10] LABS: ALBUMIN 2.3 GM/DL (3.4-5.0); AST (GOT) 8 U/L (15-37); BICARBONATE 21.8 MEQ/L (21.0-32.0); BLOOD UREA NITROGEN 35 MG/DL (7-18); CALCIUM 8.8 MG/DL (8.5-10.1); CHLORIDE 109 MEQ/L (98-107); GLOMERULAR FILTRATION RATE 40 ML/MIN (>89); GLUCOSE,RANDOM 88 MG/DL (74-106); SODIUM (NA) 141 MEQ/L (136-145)
[2017-07-20 13:11] LABS: ALT (GPT) 10 U/L (12-78)
[2017-07-20 13:13] LABS: ALKALINE PHOSPHATASE 73 U/L (45-117); TOTAL BILIRUBIN ADULT 0.2 MG/DL (0.2-1.0)
--- NOTE | 2017-07-20 13:37 | HHI.PR ---
Subjective Remarks UTI covered with antibiotics. Mendoza catheter has been replaced. Urine output is now present. Monitoring of creatinine showed worsening through time. He will have to have documented improvement in his creatinine prior to discharge. Objective Vital Signs Date Time Temp Pulse Resp B/P (MAP) Pulse Ox O2 Delivery O2 Flow Rate FiO2 07/20/17 12:12 98.0 70 18 110/60 (77) 96 07/20/17 09:14 98.1 59 17 111/53 (72) 97 07/20/17 06:42 96.2 58 18 109/71 (84) 96 07/20/17 00:05 97.9 70 18 93/54 (67) 94 07/19/17 21:17 07/19/17 19:20 75 14 110/57 (74) 99 Room Air 07/19/17 19:20 75 14 07/19/17 14:30 60 15 114/58 (76) 98 07/19/17 13:52 98.0 81 18 148/68 (94) 97 07/19/17 13:52 81 I/O 07/19/17 07/19/17 07/19/17 07/20/17 07/20/17 07/20/17 07:00 15:00 23:00 07:00 15:00 23:00 Intake Total 360 ml Output Total 300 ml Balance 60 ml Intake Oral 360 ml Output Urine Total 300 ml # Bowel Movements 1 Result Diagram: 07/20/17 1234 07/20/17 1234 Other Results GENERAL: NAD, A&Ox3, Mendoza catheter present HEAD: Normocephalic. NECK: Supple, trachea midline. No lymphadenopathy. EYES: No scleral icterus. No injection or drainage. CARDIOVASCULAR: Regular rate and rhythm without murmurs, gallops, or rubs. RESPIRATORY: Breath sounds equal bilaterally. No accessory muscle use. GASTROINTESTINAL: Abdomen soft, non-tender, nondistended. MUSCULOSKELETAL: No cyanosis, or edema. SKIN: Warm and dry. NEURO: No focal neurological deficitis. A/P Problem List: (1) Urinary retention ICD Code: R33.9 - Retention of urine, unspecified (2) Urinary tract infection ICD Code: N39.0 - Urinary tract infection, site not specified Assessment and Plan Assessment and Plan 72-year-old male admitted secondary to urinary tract obstruction with UTI and acute kidney injury Urinary retention/obstruction Mendoza catheter placed Obstruction appears to be resolved Follow urine output Urinary tract infection Continue Zosyn Follow urine cultures Acute kidney injury Avoid nephrotoxins Monitor renal function No improvement yet Slight worsening Monitor for improvement prior to discharge Diabetes mellitus type 2 Follow blood sugars Insulin sliding scale Diabetic diet DVT prophylaxis SCDs Elliott Streeter MD Jul 20, 2017 13:37
[2017-07-20] MEDS: INSULIN DETEMIR 100 UNITS/ML VIAL SQ SCH (21:00)
[2017-07-20] MEDS: DOXAZOSIN MESYLATE 4 MG TAB PO SCH (21:00)
[2017-07-21 05:21] VITALS: BP 120/58; PULSE 67; RESP 18; TEMP 97.9; O2SAT 95
[2017-07-21] MEDS: PIPERACIL-TAZO 3.375 GM PREMIX 50 ML IV SCH ×3 (05:41→18:19)
[2017-07-21 07:57] LABS: AUTOMATED NEUTROPHIL # 7.8 TH/MM3 (1.8-7.7); BASOPHIL # 0.1 TH/MM3 (0-0.2); BASOPHIL % 0.6 % (0.0-2.0); EOSINOPHIL # 0.1 TH/MM3 (0-0.4); EOSINOPHIL % 0.8 % (0.0-4.0); HEMOGLOBIN 9.7 GM/DL (13.0-17.0); LYMPH % 21.8 % (9.0-44.0); LYMPHOCYTE # 2.6 TH/MM3 (1.0-4.8); MEAN CELL VOLUME 82.3 FL (80.0-100.0); MEAN CORPUSCULAR HEMOGLOBIN 26.6 PG (27.0-34.0); MEAN CORPUSCULAR HGB CONC 32.3 % (32.0-36.0); MEAN PLATELET VOLUME 8.2 FL (7.0-11.0); MONO % 10.4 % (0.0-8.0); MONOCYTE # 1.2 TH/MM3 (0-0.9); NEUT % 66.4 % (16.0-70.0); PLATELET COUNT 231 TH/MM3 (150-450); RED BLOOD COUNT 3.64 MIL/MM3 (4.50-5.90); RED CELL DISTRIBUTION WIDTH 18.2 % (11.6-17.2); WHITE BLOOD COUNT 11.8 TH/MM3 (4.0-11.0)
[2017-07-21] MEDS: INSULIN ASPART 1,000 UNITS/10 ML VIAL SQ SCH ×3 (08:00→16:51)
[2017-07-21] MEDS: INSULIN ASPART SUPPLEMENTAL SCALE SQ SCH ×4 (08:00→21:00)
[2017-07-21 08:10] LABS: ALBUMIN 2.1 GM/DL (3.4-5.0); AST (GOT) 5 U/L (15-37); BICARBONATE 18.9 MEQ/L (21.0-32.0); BLOOD UREA NITROGEN 35 MG/DL (7-18); CALCIUM 8.3 MG/DL (8.5-10.1); CHLORIDE 110 MEQ/L (98-107); CREATININE 1.86 MG/DL (0.60-1.30); GLOMERULAR FILTRATION RATE 36 ML/MIN (>89); GLUCOSE,RANDOM 123 MG/DL (74-106); SODIUM (NA) 141 MEQ/L (136-145)
[2017-07-21 08:11] LABS: ALT (GPT) 8 U/L (12-78)
[2017-07-21 08:13] LABS: ALKALINE PHOSPHATASE 60 U/L (45-117); TOTAL BILIRUBIN ADULT 0.3 MG/DL (0.2-1.0); TOTAL PROTEIN 5.6 GM/DL (6.4-8.2)
[2017-07-21 08:51] VITALS: BP 112/57; PULSE 58; RESP 22; TEMP 97.3; O2SAT 97
[2017-07-21] MEDS: DOCUSATE SODIUM 50 MG/SENNA 8.6 MG TAB PO SCH ×2 (09:00→21:00)
[2017-07-21] MEDS: SODIUM CHLORIDE 0.9% FLUSH 10 ML FLUSH IV FLUSH SCH ×2 (09:00→21:00)
--- NOTE | 2017-07-21 10:06 | HHI.PR ---
Subjective Remarks Retinae worsened again. Current creatinine level is 1.86. Baseline is approximately 1.1. Objective Vital Signs Date Time Temp Pulse Resp B/P (MAP) Pulse Ox O2 Delivery O2 Flow Rate FiO2 07/21/17 08:51 97.3 58 22 112/57 (75) 97 07/21/17 05:21 97.9 67 18 120/58 (78) 95 07/20/17 23:50 98.2 69 18 105/56 (72) 95 07/20/17 21:03 98.0 70 18 101/50 (67) 95 07/20/17 16:35 98.1 70 18 101/52 (68) 96 07/20/17 12:12 98.0 70 18 110/60 (77) 96 I/O 07/20/17 07/20/17 07/20/17 07/21/17 07/21/17 07/21/17 07:00 15:00 23:00 07:00 15:00 23:00 Intake Total 360 ml Output Total 300 ml Balance 60 ml Intake Oral 360 ml Output Urine Total 300 ml # Bowel Movements 1 1 Result Diagram: 07/21/17 0710 07/21/17 0710 Objective Remarks GENERAL: NAD, A&Ox3, Mendoza catheter is in place HEAD: Normocephalic. NECK: Supple, trachea midline. No lymphadenopathy. EYES: No scleral icterus. No injection or drainage. CARDIOVASCULAR: Regular rate and rhythm without murmurs, gallops, or rubs. RESPIRATORY: Breath sounds equal bilaterally. No accessory muscle use. GASTROINTESTINAL: Abdomen soft, non-tender, nondistended. MUSCULOSKELETAL: No cyanosis, or edema. SKIN: Warm and dry. NEURO: No focal neurological deficitis. A/P Problem List: (1) Urinary retention ICD Code: R33.9 - Retention of urine, unspecified (2) Urinary tract infection ICD Code: N39.0 - Urinary tract infection, site not specified Assessment and Plan Assessment and Plan 72-year-old male admitted secondary to urinary tract obstruction with UTI and acute kidney injury. Slight worsening of renal function again today. Check creatinine this afternoon. Urinary retention/obstruction Mendoza catheter placed Obstruction appears to be resolved Follow urine output Urinary tract infection Continue Zosyn Follow urine cultures Acute kidney injury Avoid nephrotoxins Monitor renal function No improvement yet Slight worsening Monitor for improvement prior to discharge Diabetes mellitus type 2 Follow blood sugars Insulin sliding scale Diabetic diet DVT prophylaxis SCDs Elliott Streeter MD Jul 21, 2017 10:06
[2017-07-21 10:11] LABS: BANDS 8 % (0-6); LYMPHOCYTES 10 % (9-44); METAMYELOCYTES 5 % (0-1); MONOCYTES 9 % (0-8); NEUTROPHIL # MANUAL DIFF 9.4 TH/MM3 (1.8-7.7); POLYS (SEG NEUTROPHILS) 67 % (16-70)
[2017-07-21 10:12] LABS: TOXIC GRANULATION 2+ (NORMAL)
[2017-07-21] MEDS: FOLIC ACID 1 MG TAB PO SCH (10:25)
[2017-07-21] MEDS: FLUTICASONE 100 MCG/VILANTEROL 25 MCG INHALER INH SCH (10:25)
[2017-07-21] MEDS: TAMSULOSIN HCL 0.4 MG CAP PO SCH (10:25)
[2017-07-21] MEDS: ATENOLOL 50 MG TAB PO SCH (10:26)
[2017-07-21] MEDS: SERTRALINE HCL 100 MG TAB PO SCH (10:26)
[2017-07-21] MEDS: FUROSEMIDE 40 MG TAB PO SCH (10:26)
[2017-07-21] MEDS: PANTOPRAZOLE SOD 20 MG DELAYED RELEASE TAB PO SCH (10:26)
[2017-07-21 10:33] VITALS: PULSE 68
[2017-07-21] MEDS: CHOLESTYRAMINE LIGHT 4 GM PACKAGE PO SCH ×2 (11:53→20:45)
[2017-07-21 13:00] VITALS: BP 104/58; PULSE 65; RESP 24; TEMP 97.5; O2SAT 94
[2017-07-21] MEDS: SODIUM CHLOR 0.9% 1000 ML INJ 1,000 ML IV SCH (13:46)
[2017-07-21 16:29] LABS: BICARBONATE 18.9 MEQ/L (21.0-32.0); CALCIUM 8.3 MG/DL (8.5-10.1); CREATININE 2.05 MG/DL (0.60-1.30)
[2017-07-21 20:52] VITALS: BP 103/50; PULSE 72; RESP 18; TEMP 97.9; O2SAT 94
[2017-07-21] MEDS: DOXAZOSIN MESYLATE 4 MG TAB PO SCH (21:00)
[2017-07-21] MEDS: INSULIN DETEMIR 100 UNITS/ML VIAL SQ SCH (21:00)
[2017-07-22] MEDS: PIPERACIL-TAZO 3.375 GM PREMIX 50 ML IV SCH ×3 (00:34→12:45)
[2017-07-22 00:35] VITALS: BP 122/58; PULSE 66; RESP 18; TEMP 98; O2SAT 95
[2017-07-22 04:06] VITALS: BP 109/53; PULSE 68; RESP 18; TEMP 98; O2SAT 98
[2017-07-22] MEDS: SODIUM CHLOR 0.9% 1000 ML INJ 1,000 ML IV SCH ×2 (05:06→08:00)
[2017-07-22] MEDS: INSULIN ASPART SUPPLEMENTAL SCALE SQ SCH ×3 (07:51→17:00)
[2017-07-22] MEDS: INSULIN ASPART 1,000 UNITS/10 ML VIAL SQ SCH ×4 (07:55→17:19)
[2017-07-22 08:38] VITALS: BP 135/65; PULSE 58; RESP 16; TEMP 97.8; O2SAT 96
[2017-07-22] MEDS: FLUTICASONE 100 MCG/VILANTEROL 25 MCG INHALER INH SCH (08:45)
[2017-07-22] MEDS: CHOLESTYRAMINE LIGHT 4 GM PACKAGE PO SCH (08:45)
[2017-07-22] MEDS: SODIUM CHLORIDE 0.9% FLUSH 10 ML FLUSH IV FLUSH SCH (08:46)
[2017-07-22] MEDS: SERTRALINE HCL 100 MG TAB PO SCH (08:47)
[2017-07-22] MEDS: DOCUSATE SODIUM 50 MG/SENNA 8.6 MG TAB PO SCH (08:47)
[2017-07-22] MEDS: PANTOPRAZOLE SOD 20 MG DELAYED RELEASE TAB PO SCH (08:47)
[2017-07-22] MEDS: ATENOLOL 50 MG TAB PO SCH (08:47)
[2017-07-22] MEDS: FUROSEMIDE 40 MG TAB PO SCH (08:47)
[2017-07-22] MEDS: TAMSULOSIN HCL 0.4 MG CAP PO SCH (08:47)
[2017-07-22] MEDS: FOLIC ACID 1 MG TAB PO SCH (08:47)
[2017-07-22 09:32] LABS: BICARBONATE 17.8 MEQ/L (21.0-32.0); CALCIUM 8.1 MG/DL (8.5-10.1); CREATININE 2.08 MG/DL (0.60-1.30)
--- NOTE | 2017-07-22 10:24 | HHI.PR ---
Subjective Remarks Renal function appears to stabilize. Previous creatinine was 2.05 and now is 2.08 today. This plateau could represent a precursor to a downward trend. If he exhibits a downward trend he will be considered for discharge. Objective Vital Signs Date Time Temp Pulse Resp B/P (MAP) Pulse Ox O2 Delivery O2 Flow Rate FiO2 07/22/17 08:38 97.8 58 16 135/65 (88) 96 07/22/17 04:06 98.0 68 18 109/53 (71) 98 07/22/17 00:35 98.0 66 18 122/58 (79) 95 07/21/17 20:52 97.9 72 18 103/50 (67) 94 07/21/17 13:00 97.5 65 24 104/58 (73) 94 07/21/17 10:33 68 I/O 07/21/17 07/21/17 07/21/17 07/22/17 07/22/17 07/22/17 07:00 15:00 23:00 07:00 15:00 23:00 Intake Total 1005 ml 240 ml 1600 ml Output Total 501 ml 350 ml 825 ml Balance 504 ml -110 ml 775 ml Intake Oral 480 ml 240 ml 500 ml IV Total 525 ml 1100 ml Output Urine Total 500 ml 350 ml 825 ml Stool Total 1 ml Result Diagram: 07/21/17 0710 07/22/17 0835 Objective Remarks GENERAL: NAD, A&Ox3, Mendoza catheter is in place HEAD: Normocephalic. NECK: Supple, trachea midline. No lymphadenopathy. EYES: No scleral icterus. No injection or drainage. CARDIOVASCULAR: Regular rate and rhythm without murmurs, gallops, or rubs. RESPIRATORY: Breath sounds equal bilaterally. No accessory muscle use. GASTROINTESTINAL: Abdomen soft, non-tender, nondistended. MUSCULOSKELETAL: No cyanosis, or edema. SKIN: Warm and dry. NEURO: No focal neurological deficitis. A/P Problem List: (1) Urinary retention ICD Code: R33.9 - Retention of urine, unspecified (2) Urinary tract infection ICD Code: N39.0 - Urinary tract infection, site not specified Assessment and Plan Assessment and Plan 72-year-old male admitted secondary to urinary tract obstruction with UTI and acute kidney injury. No significant worsening today. Follow creatinine this afternoon. If downward trend is present, will be considered for discharge. Urinary retention/obstruction Mendoza catheter placed Obstruction appears to be resolved Follow urine output Urinary tract infection Continue Zosyn Follow urine cultures Acute kidney injury Avoiding nephrotoxins Monitor renal function No improvement yet Slight worsening Monitor for improvement prior to discharge Diabetes mellitus type 2 Follow blood sugars Insulin sliding scale Diabetic diet DVT prophylaxis SCDs Elliott Streeter MD Jul 22, 2017 10:24
--- NOTE | 2017-07-22 10:24 | PD.CONS ---
[facility] Service Nephrology Consult Requested By Reason for Consult Acute on chronic kidney disease Primary Care Physician Alexander Yadav MD (Paul) History of Present Illness Mr. Montiel suffers from dementia, and is a poor historian. As per the chart, patient was sent to the ER because of urinary retention. He appears to have chronic indwelling Mendoza that is changed every so often. Mendoza was removed in his SNF, but a new catheter could not be inserted. Patient developed abdominal discomfort. He was sent to the ER. Mendoza was placed in the ER with output of about 1 liter of urine. His baseline creatinine appears to be around 1.4. We had seen him in February when he presented with serum potassium of more than 7 and creatinine of around 10. His renal function improved after Mendoza insertion. His creatinine has been around 1.7-2. He is non oliguric. On IVF. Review of Systems Constitutional: DENIES: Fever Cardiovascular: DENIES: Chest pain, Palpitations, Lower Extremity Edema Gastrointestinal: COMPLAINS OF: Abdominal pain, Diarrhea Musculoskeletal: DENIES: Joint pain Neurologic: DENIES: Headache Past Family Social History Allergies: Coded Allergies: No Known Allergies (Unverified , 11/16/16) Past Medical History Anxiety, Depression, HTN, Hyperlipidemia, COPD, Dementia, DM and GERD Reported Medications Lantus Inj (Insulin Glargine) 100 Unit/Ml Inj 15 Unit SQ HS Cardura (Doxazosin Mesylate) 4 Mg Tab 4 Mg PO HS Flomax (Tamsulosin HCl) 0.4 Mg Cap 0.4 Mg PO DAILY Reported Tylenol (Acetaminophen) 325 Mg Tab 650 Mg PO Q6H PRN Melatonin 3 Mg Tab 3 Mg PO HS PRN Omeprazole 20 Mg Tab 20 Mg PO DAILY Novolog Inj (Insulin Aspart) 1,000 Unit/10 Ml Vial 2-10 Units SQ ACHS Sliding Scale: 0-70: Give 4oz of OMercedes and notify , 71-150=0 units, 151-200=2 units, 201-250=4 units, 251-300=6 units, 301-350=8 units, 351-400=10 units > 400, notify Novolog Flexpen Inj (Insulin Aspart) 300 Unit/3 Ml Pen 4 Units SQ TIDAC Furosemide 40 Mg Tab 40 Mg PO DAILY Breo Ellipta Inh (Fluticasone/Vilanterol) 100-25 Mcg/Act Inh 1 Puff INH DAILY Use daily at the same time. Folic Acid 0.8 Mg Tab 1 Mg PO DAILY Fibercon (Calcium Polycarbophil) 625 Mg Tab 1,250 Mg PO BID Cholestyramine Light 4 Gm/Dose Powd 4 Gm PO BID 1 level scoopful of powder contains 4 grams of cholestyramine. Potassium Chloride ER (Potassium Chloride) 10 Meq Cap 20 Meq PO BID Culturelle (Lactobacillus Rhamnosus (GG)) 10 Billion Cell Cap 1 Cap PO BID Atenolol 50 Mg Tab 50 Mg PO DAILY Sertraline (Sertraline HCl) 100 Mg Tab 100 Mg PO DAILY Family History reviewed, non contributory Social History no active tobacco or ETOH Physical Exam Vital Signs Vital Signs Date Time Temp Pulse Resp B/P (MAP) Pulse Ox O2 Delivery O2 Flow Rate FiO2 07/22/17 08:38 97.8 58 16 135/65 (88) 96 07/22/17 04:06 98.0 68 18 109/53 (71) 98 07/22/17 00:35 98.0 66 18 122/58 (79) 95 07/21/17 20:52 97.9 72 18 103/50 (67) 94 07/21/17 13:00 97.5 65 24 104/58 (73) 94 07/21/17 10:33 68 Physical Exam GENERAL: chronically ill appearing, he demonstrates confusion. Knows he is in a hospital. SKIN: Warm and dry. HEAD: Normocephalic. EYES: No scleral icterus. No injection or drainage. NECK: Supple, trachea midline. No JVD or lymphadenopathy. CARDIOVASCULAR: Regular rate and rhythm without murmurs, gallops, or rubs. RESPIRATORY: Breath sounds equal bilaterally. No accessory muscle use. GASTROINTESTINAL: Abdomen soft, non-tender, nondistended. MUSCULOSKELETAL: No cyanosis, or edema. BACK: Nontender without obvious deformity. No CVA tenderness. Laboratory Laboratory Tests Test 07/21/17 15:02 07/22/17 08:35 Blood Urea Nitrogen 34 28 Creatinine 2.05 2.08 Random Glucose 83 133 Calcium Level 8.3 8.1 Sodium Level 141 142 Potassium Level 3.9 4.4 Chloride Level 113 115 Carbon Dioxide Level 18.9 17.8 Anion Gap 9 9 Estimat Glomerular Filtration Rate 32 32 Date/Time Source Procedure Growth Status 07/19/17 18:15 Blood Peripheral Aerobic Blood Culture - Preliminary NO GROWTH IN 2 DAYS Resulted 07/19/17 18:15 Blood Peripheral Anaerobic Blood Culture - Preliminary NO GROWTH IN 2 DAYS Resulted 07/19/17 14:05 Urine Random Urine Urine Culture - Final Escherichia Coli Esbl Positive Complete Result Diagram: 07/21/17 0710 07/22/17 0835 Assessment and Plan Problem List: (1) Urinary retention ICD Codes: R33.9 - Retention of urine, unspecified Plan: Mendoza has been exchanged. He is non oliguric. Encourage oral intake. Stop IVF. (2) Acute kidney injury ICD Codes: N17.9 - Acute kidney failure, unspecified Plan: Could be due to infection, UTI. Higher creatinine may be his new baseline. Stop IVF. Encourage oral intake. Urine culture grew ESBL positive E.coli May need to change the antibiotic appropriately: to Invanz perhaps. He appears to have chronic colonization. (3) Debility ICD Codes: R53.81 - Other malaise Plan: Needs nutritional support. Assessment and Plan Thanks for the consult. Javi Maria MD Jul 22, 2017 10:24
[2017-07-22] MEDS ORDERED: PHENAZOPYRIDINE HCL 200 MG TAB PO ONE (10:30)
[2017-07-22 12:30] VITALS: BP 124/58; PULSE 63; RESP 18; TEMP 97.5; O2SAT 96
[2017-07-22] MEDS ORDERED: PHENAZOPYRIDINE HCL 100 MG TAB PO SCH (14:00)
[2017-07-22] MEDS ORDERED: NITR100C4 PO (15:07)
[2017-07-22] MEDS ORDERED: TOBRAMYCIN INJ 100 MG in SODIUM CHLORIDE 0.9% INJ 100 ML IV SCH (16:00)
[2017-07-22 16:59] LABS: BICARBONATE 20.7 MEQ/L (21.0-32.0); CALCIUM 8.2 MG/DL (8.5-10.1); CREATININE 1.92 MG/DL (0.60-1.30)
[2017-07-22 17:08] VITALS: BP 131/60; PULSE 69; RESP 18; TEMP 97.9; O2SAT 96
== END 2017-07-22 21:00 | disposition short-term general hospital (02) ==
LOC: NEPE 13:45 → NEDA 19:25 → NEPFCDU 21:10
PROVIDERS: ADMIT Hospitalist; ATTEND Hospitalist
DX: N39.0 Urinary tract infection, site not specified (principal); B96.20 Unspecified Escherichia coli [E. coli] as the cause of diseases classified elsewhere; R33.9 Retention of urine, unspecified; D72.829 Elevated white blood cell count, unspecified; N17.9 Acute kidney failure, unspecified; K57.90 Diverticulosis of intestine, part unspecified, without perforation or abscess without bleeding; N13.9 Obstructive and reflux uropathy, unspecified; I13.0 Hypertensive heart and chronic kidney disease with heart failure and stage 1 through stage 4 chronic kidney disease, or unspecified chronic kidney disease; I50.9 Heart failure, unspecified; E11.22 Type 2 diabetes mellitus with diabetic chronic kidney disease; N18.9 Chronic kidney disease, unspecified; E78.5 Hyperlipidemia, unspecified; F03.90 Unspecified dementia, unspecified severity, without behavioral disturbance, psychotic disturbance, mood disturbance, and anxiety; F43.10 Post-traumatic stress disorder, unspecified; J44.9 Chronic obstructive pulmonary disease, unspecified; K21.9 Gastro-esophageal reflux disease without esophagitis; Z66 Do not resuscitate; Z72.0 Tobacco use; Z79.4 Long term (current) use of insulin
CPT/HCPCS: 51702; 74177; 80048; 80053; 81001; 82948; 83605; 83690; 85007; 85025; 85027; 85610; 85730; 87040; 87077; 87086; 87186; 96361; 96365; 96366; 96367; 96372; 96376; 99285; G0378; J1815; J2543; J3260; J7030; Q9967

== ENCOUNTER 2017-10-14 00:43 | Emergency (ER) | payer OTHER, MEDICAID ==
[~2017-10-14 00:43] MED LIST changes: -CIPR-9 PO; -EPIN1INJ21 IV PUSH; -EPIN1INJ21 SQ; -INVA1INJ IV; -IPRASOL INH; +MELA3TAB52 PO; -METR1TAB76 PO; +NITR100C4 PO; -NU-I150C PO; -PRED10PA PO; -SOLU250I IV PUSH; +TYLE325T PO; -VANC250C2 PO
[2017-10-14 00:50] VITALS: BP 117/55; PULSE 80; RESP 18; TEMP 98.7; O2SAT 100
[2017-10-14] MEDS ORDERED: MORPHINE SULFATE 4 MG/ML INJ ONE (01:53)
--- NOTE | 2017-10-14 02:26 | PD ---
HPI Chief Complaint: Complaint Time Seen by Provider: 00:51 Travel History International Travel<30 days: No Contact w/Intl Traveler<30days: No Traveled to known affect area: No History of Present Illness HPI The patient is a 72-year-old male who presents to the emergency department via EMS from the [facility] after he pulled his Mendoza catheter out. According to EMS the patient pulled his Mendoza catheter out at a the [facility], and nursing staff at the [facility] was unable to place another Mendoza catheter. The patient does have a history of dementia, upon arrival, is a poor historian and is only oriented to person. The patient denies any physical complaints including chest pain, shortness breath, nausea, vomiting, abdominal pain, or penile pain. Symptoms are moderate, exacerbated after he pulled a Mendoza catheter out, and there are no current leaving factors. PFSH Past Medical History Autoimmune Disease: Yes (MS) Anxiety: Yes Depression: Yes Cancer: No Cardiovascular Problems: No High Cholesterol: Yes Congestive Heart Failure: Yes COPD: Yes Diabetes: Yes Patient Takes Glucophage: No Diminished Hearing: No Endocrine: Yes Gastrointestinal Disorders: Yes (HX INFECTIOUS GASTROENTERITIS COLITIS) GERD: Yes Genitourinary: No Hypertension: Yes Immune Disorder: No Musculoskeletal: No Neurologic: No Psychiatric: Yes (PTSD) Reproductive: No Respiratory: No Immunizations Current: Yes Pneumonia: Yes Past Surgical History Surgical History: No Previous Surgery Other Surgery: No Social History Alcohol Use: Yes Tobacco Use: No Substance Use: No (Denies) Allergies-Medications (Allergen,Severity, Reaction): Coded Allergies: No Known Allergies (Unverified Adverse Reaction, Unknown, 10/14/17) Reported Meds & Prescriptions Reported Meds & Active Scripts Active Nitrofurantoin Monohydrate Macrocrystals (Nitrofurantoin Monoh/Nitrofur Macro) 100 Mg Cap 100 Mg PO BID Lantus Inj (Insulin Glargine) 100 Unit/Ml Inj 15 Unit SQ HS Cardura (Doxazosin Mesylate) 4 Mg Tab 4 Mg PO HS Flomax (Tamsulosin HCl) 0.4 Mg Cap 0.4 Mg PO DAILY Reported Tylenol (Acetaminophen) 325 Mg Tab 650 Mg PO Q6H PRN Melatonin 3 Mg Tab 3 Mg PO HS PRN Omeprazole 20 Mg Tab 20 Mg PO DAILY Novolog Inj (Insulin Aspart) 1,000 Unit/10 Ml Vial 2-10 Units SQ ACHS Sliding Scale: 0-70: Give 4oz of OJ and notify MD, 71-150=0 units, 151-200=2 units, 201-250=4 units, 251-300=6 units, 301-350=8 units, 351-400=10 units > 400, notify Novolog Flexpen Inj (Insulin Aspart) 300 Unit/3 Ml Pen 4 Units SQ TIDAC Furosemide 40 Mg Tab 40 Mg PO DAILY Breo Ellipta Inh (Fluticasone/Vilanterol) 100-25 Mcg/Act Inh 1 Puff INH DAILY Use daily at the same time. Folic Acid 0.8 Mg Tab 1 Mg PO DAILY Fibercon (Calcium Polycarbophil) 625 Mg Tab 1,250 Mg PO BID Cholestyramine Light 4 Gm/Dose Powd 4 Gm PO BID 1 level scoopful of powder contains 4 grams of cholestyramine. Potassium Chloride ER (Potassium Chloride) 10 Meq Cap 20 Meq PO BID Culturelle (Lactobacillus Rhamnosus (GG)) 10 Billion Cell Cap 1 Cap PO BID Atenolol 50 Mg Tab 50 Mg PO DAILY Sertraline (Sertraline HCl) 100 Mg Tab 100 Mg PO DAILY Review of Systems ROS Limitations: Clinical Condition (history of dementia), Poor Historian Except as stated in HPI: all other systems reviewed are Neg General / Constitutional: No: Fever Cardiovascular: No: Chest Pain or Discomfort Respiratory: No: Shortness of Breath Gastrointestinal: No: Nausea, Vomiting, Abdominal Pain Genitourinary: Positive: Other (as noted in the history of present illness) Neurologic: Positive: Other (history of dementia, poor historian) Physical Exam Narrative GENERAL: Awake, alert, 72-year-old male who appears his stated age and is in no acute respiratory distress. SKIN: Focused skin assessment warm/dry. HEAD: Atraumatic. Normocephalic. EYES: No injection or drainage. ENT: No nasal bleeding or discharge. Mucous membranes pink and moist. NECK: Trachea midline. No JVD. CARDIOVASCULAR: Regular rate and rhythm. No murmur appreciated. RESPIRATORY: No accessory muscle use. Clear to auscultation. Breath sounds equal bilaterally. GASTROINTESTINAL: Abdomen soft, non-tender, nondistended. Genitourinary: There is mild blood at the meatus. No tenderness over the testicles bilaterally. MUSCULOSKELETAL: No obvious deformities. No clubbing. No cyanosis. No edema. NEUROLOGICAL: Awake and alert. No obvious cranial nerve deficits. Motor grossly within normal limits. Normal speech. Oriented to person but not month, place, year, or hvac technician residential. Follow simple commands. PSYCHIATRIC: Appropriate mood and affect; insight and judgment normal. Data Data Last Documented VS Vital Signs Date Time Temp Pulse Resp B/P (MAP) Pulse Ox O2 Delivery O2 Flow Rate FiO2 10/14/17 02:45 84 18 123/62 (82) 95 Room Air 10/14/17 00:50 98.7 Orders Orders Urinary Catheter Insert/Apply (10/14/17 00:59) Complete Blood Count With Diff (10/14/17 00:59) Basic Metabolic Panel (Bmp) (10/14/17 00:59) Urinalysis - C+S If Indicated (10/14/17 00:59) Morphine Inj (Morphine Inj) (10/14/17 01:53) Sodium Chlor 0.9% 1000 Ml Inj (Ns 1000 M (10/14/17 03:30) Urine Culture (10/14/17 02:25) Ceftriaxone Inj (Rocephin Inj) (10/14/17 04:15) Sodium Polysty Sulfate Liq (Kayexalate L (10/14/17 04:15) Ed Discharge Order (10/14/17 04:05) Labs Laboratory Tests Test 10/14/17 01:50 10/14/17 02:25 White Blood Count 15.6 TH/MM3 Red Blood Count 3.34 MIL/MM3 Hemoglobin 10.4 GM/DL Hematocrit 29.7 % Mean Corpuscular Volume 89.1 FL Mean Corpuscular Hemoglobin 31.3 PG Mean Corpuscular Hemoglobin Concent 35.1 % Red Cell Distribution Width 14.6 % Platelet Count 195 TH/MM3 Mean Platelet Volume 8.4 FL Neutrophils (%) (Auto) 82.0 % Lymphocytes (%) (Auto) 9.6 % Monocytes (%) (Auto) 7.0 % Eosinophils (%) (Auto) 1.0 % Basophils (%) (Auto) 0.4 % Neutrophils # (Auto) 12.8 TH/MM3 Lymphocytes # (Auto) 1.5 TH/MM3 Monocytes # (Auto) 1.1 TH/MM3 Eosinophils # (Auto) 0.2 TH/MM3 Basophils # (Auto) 0.1 TH/MM3 CBC Comment DIFF FINAL Differential Comment Blood Urea Nitrogen 34 MG/DL Creatinine 2.04 MG/DL Random Glucose 172 MG/DL Calcium Level 9.0 MG/DL Sodium Level 139 MEQ/L Potassium Level 5.6 MEQ/L Chloride Level 107 MEQ/L Carbon Dioxide Level 23.7 MEQ/L Anion Gap 8 MEQ/L Estimat Glomerular Filtration Rate 32 ML/MIN Urine Color BROWN Urine Turbidity MARKED Urine pH 6.0 Urine Specific [place] 1.016 Urine Protein 100 mg/dL Urine Glucose (UA) NEG mg/dL Urine Ketones TRACE mg/dL Urine Occult Blood LARGE Urine Nitrite NEG Urine Bilirubin NEG Urine Urobilinogen LESS THAN 2.0 MG/DL Urine Leukocyte Esterase MOD Urine RBC /hpf Urine WBC /hpf Urine WBC Clumps MANY Urine Bacteria MANY /hpf Urine Mucus MANY /lpf Microscopic Urinalysis Comment CATH-CULTURE IND MDM Medical Decision Making Medical Screen Exam Complete: Yes Emergency Medical Condition: Yes Medical Record Reviewed: Yes Interpretation(s) Laboratory Tests Test 10/14/17 01:50 10/14/17 02:25 White Blood Count 15.6 TH/MM3 Red Blood Count 3.34 MIL/MM3 Hemoglobin 10.4 GM/DL Hematocrit 29.7 % Mean Corpuscular Volume 89.1 FL Mean Corpuscular Hemoglobin 31.3 PG Mean Corpuscular Hemoglobin Concent 35.1 % Red Cell Distribution Width 14.6 % Platelet Count 195 TH/MM3 Mean Platelet Volume 8.4 FL Neutrophils (%) (Auto) 82.0 % Lymphocytes (%) (Auto) 9.6 % Monocytes (%) (Auto) 7.0 % Eosinophils (%) (Auto) 1.0 % Basophils (%) (Auto) 0.4 % Neutrophils # (Auto) 12.8 TH/MM3 Lymphocytes # (Auto) 1.5 TH/MM3 Monocytes # (Auto) 1.1 TH/MM3 Eosinophils # (Auto) 0.2 TH/MM3 Basophils # (Auto) 0.1 TH/MM3 CBC Comment DIFF FINAL Differential Comment Blood Urea Nitrogen 34 MG/DL Creatinine 2.04 MG/DL Random Glucose 172 MG/DL Calcium Level 9.0 MG/DL Sodium Level 139 MEQ/L Potassium Level 5.6 MEQ/L Chloride Level 107 MEQ/L Carbon Dioxide Level 23.7 MEQ/L Anion Gap 8 MEQ/L Estimat Glomerular Filtration Rate 32 ML/MIN Urine Color BROWN Urine Turbidity MARKED Urine pH 6.0 Urine Specific [place] 1.016 Urine Protein 100 mg/dL Urine Glucose (UA) NEG mg/dL Urine Ketones TRACE mg/dL Urine Occult Blood LARGE Urine Nitrite NEG Urine Bilirubin NEG Urine Urobilinogen LESS THAN 2.0 MG/DL Urine Leukocyte Esterase MOD Urine RBC /hpf Urine WBC /hpf Urine WBC Clumps MANY Urine Bacteria MANY /hpf Urine Mucus MANY /lpf Microscopic Urinalysis Comment CATH-CULTURE IND Differential Diagnosis Differential diagnosis includes urinary obstruction, urinary retention, BPH, obstructive uropathy, acute renal failure, UTI. Narrative Course IV was established, labs are drawn and sent, and the patient was placed on cardiac telemetry monitoring and continuous pulse oximetry monitoring. A three- way Mendoza catheter was placed for irrigation as the patient have blood at the meatus after removing the Mendoza catheter on his own, may have suffered traumatic urethral injury. The patient's white count was elevated at 15.6. Creatinine was elevated at 2.04. I reviewed the EMR, he has a history of elevated white count and kidney function, GFR is at 32. UA reveals innumerable RBCs and WBCs after Mendoza catheter placement. The patient was pourer Rocephin 1 g intravenously. Potassium is mildly elevated at 5.6, the patient received 1 L of IV fluids and Kayexalate 15 g orally. The patient will be transferred [facility] to the [facility] with prescription for Cipro 250 mg twice a day for one week. Diagnosis Primary Impression: UTI (urinary tract infection) Qualified Codes: T83.511A - Infection and inflammatory reaction due to indwelling urethral catheter, initial encounter; N39.0 - Urinary tract infection , site not specified Additional Impressions: Chronic kidney disease (CKD) Qualified Codes: N18.3 - Chronic kidney disease, stage 3 (moderate) Hyperkalemia Patient Instructions: General Instructions Additional Instructions: Medications as directed. Follow-up with urology on an outpatient basis. Transfer back to [facility]. Return if symptoms worsen or progress. Med/Other Pt SpecificInfo: Prescription(s) given Scripts Ciprofloxacin (Cipro) 250 Mg Tab 250 MG PO BID for Infection for 7 Days, #14 TAB 0 Refills Prov: Kenton Mariscal MD 10/14/17 Disposition: 03 DISCHARGE TO SNF (discharge back to [facility]) Condition: Stable Kenton Mariscal MD Oct 14, 2017 02:26
[2017-10-14 02:27] LABS: AUTOMATED NEUTROPHIL # 12.8 TH/MM3 (1.8-7.7); BASOPHIL # 0.1 TH/MM3 (0-0.2); BASOPHIL % 0.4 % (0.0-2.0); EOSINOPHIL # 0.2 TH/MM3 (0-0.4); HEMATOCRIT 29.7 % (39.0-51.0); HEMOGLOBIN 10.4 GM/DL (13.0-17.0); LYMPH % 9.6 % (9.0-44.0); LYMPHOCYTE # 1.5 TH/MM3 (1.0-4.8); MEAN CELL VOLUME 89.1 FL (80.0-100.0); MEAN CORPUSCULAR HEMOGLOBIN 31.3 PG (27.0-34.0); MEAN CORPUSCULAR HGB CONC 35.1 % (32.0-36.0); MEAN PLATELET VOLUME 8.4 FL (7.0-11.0); MONOCYTE # 1.1 TH/MM3 (0-0.9); PLATELET COUNT 195 TH/MM3 (150-450); RED BLOOD COUNT 3.34 MIL/MM3 (4.50-5.90); RED CELL DISTRIBUTION WIDTH 14.6 % (11.6-17.2); WHITE BLOOD COUNT 15.6 TH/MM3 (4.0-11.0)
[2017-10-14 02:43] LABS: BICARBONATE 23.7 MEQ/L (21.0-32.0); CREATININE 2.04 MG/DL (0.60-1.30)
[2017-10-14 02:45] VITALS: BP 123/62; PULSE 84; RESP 18; O2SAT 95
[2017-10-14] MEDS ORDERED: SODIUM CHLOR 0.9% 1000 ML INJ 1,000 ML IV ONE (03:30)
[2017-10-14 03:47] LABS: BACTERIA, URINE MANY /hpf; BILIRUBIN, URINE NEG (NEG); BLOOD, URINE LARGE (NEG); GLUCOSE,URINE NEG (NEG); KETONE, URINE TRACE mg/dL (NEG); MUCUS URINE MANY /lpf (OCC); NITRITE,URINE NEG (NEG); URINE LEUKOCYTE ESTERASE MOD (NEG); WHITE BLOOD CELL CLUMPS MANY
[2017-10-14 03:48] LABS: URINE COLOR BROWN (YELLW/STRAW)
[2017-10-14] MEDS ORDERED: CIPR250T52 PO (04:08)
[2017-10-14] MEDS ORDERED: cefTRIAXone INJ 1,000 MG in SODIUM CHLORIDE 0.9% INJ 100 ML IV ONE (04:15)
[2017-10-14] MEDS ORDERED: SODIUM POLYSTYRENE SULFONATE SUSP 15 GM/60 ML CUP PO ONE (04:15)
[2017-10-14] MEDS ORDERED: LIDOCAINE 2% JELLY 30 ML TUBE TOPICAL ONE (04:45)
[2017-10-14] MEDS ORDERED: MORPHINE SULFATE 4 MG/ML INJ IV PUSH ONE (04:45)
[2017-10-14 06:09] VITALS: BP 130/58; PULSE 78; RESP 18; O2SAT 98
[2017-10-14 07:40] VITALS: BP 130/81; TEMP 97.8
== END 2017-10-14 07:40 ==
LOC: NEPE 00:43
DX: T83.511A Infection and inflammatory reaction due to indwelling urethral catheter, initial encounter (principal); N39.0 Urinary tract infection, site not specified; B95.2 Enterococcus as the cause of diseases classified elsewhere; B96.89 Other specified bacterial agents as the cause of diseases classified elsewhere; N18.3 Chronic kidney disease, stage 3 (moderate); E87.5 Hyperkalemia; I13.0 Hypertensive heart and chronic kidney disease with heart failure and stage 1 through stage 4 chronic kidney disease, or unspecified chronic kidney disease; I50.9 Heart failure, unspecified; E11.22 Type 2 diabetes mellitus with diabetic chronic kidney disease; E78.00 Pure hypercholesterolemia, unspecified; J44.9 Chronic obstructive pulmonary disease, unspecified; F03.90 Unspecified dementia, unspecified severity, without behavioral disturbance, psychotic disturbance, mood disturbance, and anxiety; F32.9 Major depressive disorder, single episode, unspecified; F43.10 Post-traumatic stress disorder, unspecified; Z79.4 Long term (current) use of insulin; Z79.899 Other long term (current) drug therapy
CPT/HCPCS: 51702; 80048; 81001; 85025; 87077; 87086; 87106; 87186; 96365; 99284; J0696; J2270; J7030

== ENCOUNTER 2017-10-27 20:20 | Inpatient (IN) | payer OTHER, MEDICARE, MEDICAID ==
[~2017-10-27] VITALS: Ht 162.6 cm; Wt 70.9 kg
[~2017-10-27 20:20] MED LIST changes: +CIPR250T52 PO
[2017-10-27 20:27] VITALS: BP 144/63; PULSE 102; RESP 22; TEMP 103; O2SAT 93
[2017-10-27] MEDS ORDERED: PIPERACIL-TAZO 4.5 GM PREMIX 100 ML IV STA (20:34)
[2017-10-27] MEDS ORDERED: SODIUM CHLOR 0.9% 1000 ML INJ 1,000 ML IV ONE ×4 (20:34→21:00)
--- NOTE | 2017-10-27 20:44 | PD ---
Physical Exam Narrative I, Dr. Head, have reviewed the advance practice practitioner's documentation and am in agreement, met with the patient face to face, made the diagnosis, and the medical decision making was done by me. *My assessment and Findings: Patient is a 72 year old male who is brought in by EMS from the half-way due to fever and AMS. Exam shows distended bladder, tender to palpation. Data Data Last Documented VS Vital Signs Date Time Temp Pulse Resp B/P (MAP) Pulse Ox O2 Delivery O2 Flow Rate FiO2 10/27/17 21:06 95 17 93 2.00 10/27/17 20:48 Nasal Cannula 10/27/17 20:27 103.0 10/27/17 20:27 144/63 (90) Orders Orders Ammonia (10/27/17 20:31) Lactic Acid (10/27/17 20:31) Complete Blood Count With Diff (10/27/17 20:34) Comprehensive Metabolic Panel (10/27/17 20:34) Urinalysis - C+S If Indicated (10/27/17 20:34) Blood Culture (10/27/17 20:34) Sodium Chloride 0.9% Flush (Ns Flush) (10/27/17 20:45) Sepsis Workup Initiated (10/27/17 ) Electrocardiogram (10/27/17 20:34) Prothrombin Time / Inr (Pt) (10/27/17 20:34) Act Partial Throm Time (Ptt) (10/27/17 20:34) Lactic Acid Sepsis Protocol (10/27/17 20:34) Magnesium (Mg) (10/27/17 20:34) Lipase (10/27/17 20:34) Ckmb (Isoenzyme) Profile (10/27/17 20:34) Troponin I (10/27/17 20:34) Chest, Single Ap (10/27/17 20:34) Blood Glucose (10/27/17 20:34) Ecg Monitoring (10/27/17 20:34) Iv Access Insert/Monitor (10/27/17 20:34) Oximetry (10/27/17 20:34) Oxygen Administration (10/27/17 20:34) Acetaminophen Supp (Tylenol Supp) (10/27/17 20:45) Piperacil-Tazo 4.5 Gm Premix (Zosyn 4.5 (10/27/17 20:34) Sodium Chlor 0.9% 1000 Ml Inj (Ns 1000 M (10/27/17 20:34) Sodium Chlor 0.9% 1000 Ml Inj (Ns 1000 M (10/27/17 20:34) Sodium Chlor 0.9% 1000 Ml Inj (Ns 1000 M (10/27/17 20:34) Vancomycin Inj (Vancomycin Inj) (10/27/17 20:45) Sodium Chlor 0.9% 1000 Ml Inj (Ns 1000 M (10/27/17 21:00) Urine Culture (10/27/17 20:40) CKMB (10/27/17 20:40) CKMB% (10/27/17 20:40) Ct Abd/Pel W/O Iv Contrast (10/27/17 ) Aspirin Chew (Aspirin Chew) (10/28/17 09:00) Admit Order (Ed Use Only) (10/27/17 23:10) Labs Laboratory Tests Test 10/27/17 20:30 10/27/17 20:40 Lactic Acid Level 2.8 mmol/L Ammonia 28 MCMOL/L White Blood Count 19.9 TH/MM3 Red Blood Count 3.31 MIL/MM3 Hemoglobin 9.6 GM/DL Hematocrit 29.3 % Mean Corpuscular Volume 88.5 FL Mean Corpuscular Hemoglobin 29.0 PG Mean Corpuscular Hemoglobin Concent 32.7 % Red Cell Distribution Width 14.3 % Platelet Count 200 TH/MM3 Mean Platelet Volume 8.7 FL Neutrophils (%) (Auto) 90.1 % Lymphocytes (%) (Auto) 4.3 % Monocytes (%) (Auto) 5.3 % Eosinophils (%) (Auto) 0.0 % Basophils (%) (Auto) 0.3 % Neutrophils # (Auto) 17.9 TH/MM3 Lymphocytes # (Auto) 0.8 TH/MM3 Monocytes # (Auto) 1.1 TH/MM3 Eosinophils # (Auto) 0.0 TH/MM3 Basophils # (Auto) 0.1 TH/MM3 CBC Comment DIFF FINAL Differential Comment Prothrombin Time 10.0 SEC Prothromb Time International Ratio 1.0 RATIO Activated Partial Thromboplast Time 31.0 SEC Urine Color RED Urine Turbidity CLOUDY Urine pH 6.0 Urine Specific [place] 1.017 Urine Protein 100 mg/dL Urine Glucose (UA) NEG mg/dL Urine Ketones 10 mg/dL Urine Occult Blood LARGE Urine Nitrite POS Urine Bilirubin NEG Urine Urobilinogen 2.0 MG/DL Urine Leukocyte Esterase LARGE Urine RBC /hpf Urine WBC 38 /hpf Urine Amorphous Sediment FEW Urine Bacteria FEW /hpf Urine Yeast with Hyphae RARE Urine Yeast (Budding) RARE Microscopic Urinalysis Comment CULTURE INDICATED Blood Urea Nitrogen 43 MG/DL Creatinine 2.98 MG/DL Random Glucose 184 MG/DL Total Protein 7.2 GM/DL Albumin 3.1 GM/DL Calcium Level 8.8 MG/DL Magnesium Level 2.0 MG/DL Alkaline Phosphatase 84 U/L Aspartate Amino Transf (AST/SGOT) 19 U/L Alanine Aminotransferase (ALT/SGPT) 12 U/L Total Bilirubin 0.7 MG/DL Sodium Level 134 MEQ/L Potassium Level 5.6 MEQ/L Chloride Level 104 MEQ/L Carbon Dioxide Level 21.0 MEQ/L Anion Gap 9 MEQ/L Estimat Glomerular Filtration Rate 21 ML/MIN Total Creatine Kinase 354 U/L Creatine Kinase MB 0.5 NG/ML Creatine Kinase MB % 0.1 % Troponin I 0.16 NG/ML Lipase 67 U/L MDM Supervised Visit with [facility]: Yes Narrative Course Patient given IVF, tylenol. Started on broad spectrum antibiotics. Mendoza replaced with immediate return of very dirty urine. Labs show elevated WBC count, lactic acid. UA positive for UTI. Admitted for further management. Diagnosis Primary Impression: UTI (urinary tract infection) Qualified Codes: N30.01 - Acute cystitis with hematuria Additional Impressions: URI (acute kidney injury) Altered mental status Qualified Codes: R41.82 - Altered mental status, unspecified Admitting Information Admitting Physician Requests: Admit Tiffanie Head MD Oct 27, 2017 20:43
[2017-10-27] MEDS ORDERED: ACETAMINOPHEN 650 MG SUPP RECTAL ONE (20:45)
[2017-10-27] MEDS ORDERED: VANCOMYCIN INJ 1,750 MG in SODIUM CHLORID 0.9% 500 ML INJ 500 ML IV ONE (20:45)
[2017-10-27] MEDS ORDERED: SODIUM CHLORIDE 0.9% FLUSH 10 ML FLUSH IVF PRN (20:45)
[2017-10-27 20:48] VITALS: RESP 17; O2SAT 93
--- NOTE | 2017-10-27 20:54 | PD ---
HPI Chief Complaint: Altered Mental Status Time Seen by Provider: 20:34 Travel History International Travel<30 days: No Contact w/Intl Traveler<30days: No Traveled to known affect area: No History of Present Illness HPI 72-year-old male with a history of diabetes mellitus, COPD, urinary obstruction , dementia presents to the ED via [facility] with fever, abdominal pain, and altered mental status for approximately 1 day. [facility] states pt is from [facility]. States states temperature is 102, BGL 206. Mary Lay called for transport to the hospital because patient has had altered mental status. He comes in with information about his last admission and there is mention of a urinary obstruction. Patient is fairly nonverbal but he does open his eyes to voice. Pt indicates he has lower abdominal pain but cannot describe this pain. PFSH Past Medical History Autoimmune Disease: Yes (MS) Anxiety: Yes Depression: Yes Cancer: No Cardiovascular Problems: No High Cholesterol: Yes Congestive Heart Failure: Yes COPD: Yes Diabetes: Yes Patient Takes Glucophage: No Diminished Hearing: No Endocrine: Yes Gastrointestinal Disorders: Yes (HX INFECTIOUS GASTROENTERITIS COLITIS) GERD: Yes Genitourinary: No Hypertension: Yes Immune Disorder: No Musculoskeletal: No Neurologic: No Psychiatric: Yes (PTSD) Reproductive: No Respiratory: No Immunizations Current: Yes Pneumonia: Yes Tetanus Vaccination: Unknown Past Surgical History Other Surgery: No Social History Alcohol Use: Yes Tobacco Use: No Substance Use: No (Denies) Allergies-Medications (Allergen,Severity, Reaction): Coded Allergies: No Known Allergies (Unverified Allergy, Unknown, 10/27/17) Reported Meds & Prescriptions Reported Meds & Active Scripts Active Lantus Inj (Insulin Glargine) 100 Unit/Ml Inj 15 Unit SQ HS Flomax (Tamsulosin HCl) 0.4 Mg Cap 0.4 Mg PO DAILY Reported Lorazepam 1 Mg Tab 1 Mg PO Q8H PRN Bactrim (Sulfamethoxazole-Trimethoprim) 400-80 Mg Tab 1 Tab PO BID Sertraline (Sertraline HCl) 50 Mg Tab 50 Mg PO DAILY Finasteride 5 Mg Tab 5 Mg PO DAILY Do not crush. Tylenol (Acetaminophen) 325 Mg Tab 650 Mg PO Q6H PRN Omeprazole 20 Mg Tab 20 Mg PO DAILY Novolog Inj (Insulin Aspart) 1,000 Unit/10 Ml Vial 2-10 Units SQ ACHS Sliding Scale: 0-70: Give 4oz of OJ and notify MD, 71-150=0 units, 151-200=2 units, 201-250=4 units, 251-300=6 units, 301-350=8 units, 351-400=10 units > 400, notify Novolog Flexpen Inj (Insulin Aspart) 300 Unit/3 Ml Pen 4 Units SQ TIDAC Furosemide 40 Mg Tab 40 Mg PO DAILY Breo Ellipta Inh (Fluticasone/Vilanterol) 100-25 Mcg/Act Inh 1 Puff INH DAILY Use daily at the same time. Folic Acid 0.8 Mg Tab 1 Mg PO DAILY Fibercon (Calcium Polycarbophil) 625 Mg Tab 1,250 Mg PO BID Cholestyramine Light 4 Gm/Dose Powd 4 Gm PO BID 1 level scoopful of powder contains 4 grams of cholestyramine. Potassium Chloride ER (Potassium Chloride) 10 Meq Cap 20 Meq PO BID Culturelle (Lactobacillus Rhamnosus (GG)) 10 Billion Cell Cap 1 Cap PO BID Atenolol 50 Mg Tab 50 Mg PO DAILY Sertraline (Sertraline HCl) 100 Mg Tab 100 Mg PO DAILY Review of Systems Except as stated in HPI: all other systems reviewed are Neg Physical Exam Narrative GENERAL: Well-developed, well-nourished in mild distress SKIN: Focused skin assessment warm/dry. HEAD: Atraumatic. Normocephalic. EYES: Pupils equal and round. No scleral icterus. No injection or drainage. ENT: No nasal bleeding or discharge. Mucous membranes pink and moist. NECK: Trachea midline. No JVD. CARDIOVASCULAR: tachycardic rate. No murmur appreciated. RESPIRATORY: No accessory muscle use. Clear to auscultation. Breath sounds equal bilaterally. GASTROINTESTINAL: Abdomen with TTP to lower abdominal region, round mass c/w enlarged bladder. POC ultrasound confirms. No balloon observed in bladder. MUSCULOSKELETAL: No obvious deformities. No clubbing. No cyanosis. No edema. NEUROLOGICAL: Awake and alert. No obvious cranial nerve deficits. Motor grossly within normal limits. nonverbal, only occasional grunts of pain when illicited Data Data Last Documented VS Vital Signs Date Time Temp Pulse Resp B/P (MAP) Pulse Ox O2 Delivery O2 Flow Rate FiO2 10/27/17 21:06 95 17 93 2.00 10/27/17 20:48 Nasal Cannula 10/27/17 20:27 103.0 10/27/17 20:27 144/63 (90) Orders Orders Ammonia (10/27/17 20:31) Lactic Acid (10/27/17 20:31) Complete Blood Count With Diff (10/27/17 20:34) Comprehensive Metabolic Panel (10/27/17 20:34) Urinalysis - C+S If Indicated (10/27/17 20:34) Blood Culture (10/27/17 20:34) Sodium Chloride 0.9% Flush (Ns Flush) (10/27/17 20:45) Sepsis Workup Initiated (10/27/17 ) Electrocardiogram (10/27/17 20:34) Prothrombin Time / Inr (Pt) (10/27/17 20:34) Act Partial Throm Time (Ptt) (10/27/17 20:34) Lactic Acid Sepsis Protocol (10/27/17 20:34) Magnesium (Mg) (10/27/17 20:34) Lipase (10/27/17 20:34) Ckmb (Isoenzyme) Profile (10/27/17 20:34) Troponin I (10/27/17 20:34) Chest, Single Ap (10/27/17 20:34) Blood Glucose (10/27/17 20:34) Ecg Monitoring (10/27/17 20:34) Iv Access Insert/Monitor (10/27/17 20:34) Oximetry (10/27/17 20:34) Oxygen Administration (10/27/17 20:34) Acetaminophen Supp (Tylenol Supp) (10/27/17 20:45) Piperacil-Tazo 4.5 Gm Premix (Zosyn 4.5 (10/27/17 20:34) Sodium Chlor 0.9% 1000 Ml Inj (Ns 1000 M (10/27/17 20:34) Sodium Chlor 0.9% 1000 Ml Inj (Ns 1000 M (10/27/17 20:34) Sodium Chlor 0.9% 1000 Ml Inj (Ns 1000 M (10/27/17 20:34) Vancomycin Inj (Vancomycin Inj) (10/27/17 20:45) Sodium Chlor 0.9% 1000 Ml Inj (Ns 1000 M (10/27/17 21:00) Urine Culture (10/27/17 20:40) CKMB (10/27/17 20:40) CKMB% (10/27/17 20:40) Ct Abd/Pel W/O Iv Contrast (10/27/17 ) Aspirin Chew (Aspirin Chew) (10/28/17 09:00) Admit Order (Ed Use Only) (10/27/17 23:10) Labs Laboratory Tests Test 10/27/17 20:30 10/27/17 20:40 Lactic Acid Level 2.8 mmol/L Ammonia 28 MCMOL/L White Blood Count 19.9 TH/MM3 Red Blood Count 3.31 MIL/MM3 Hemoglobin 9.6 GM/DL Hematocrit 29.3 % Mean Corpuscular Volume 88.5 FL Mean Corpuscular Hemoglobin 29.0 PG Mean Corpuscular Hemoglobin Concent 32.7 % Red Cell Distribution Width 14.3 % Platelet Count 200 TH/MM3 Mean Platelet Volume 8.7 FL Neutrophils (%) (Auto) 90.1 % Lymphocytes (%) (Auto) 4.3 % Monocytes (%) (Auto) 5.3 % Eosinophils (%) (Auto) 0.0 % Basophils (%) (Auto) 0.3 % Neutrophils # (Auto) 17.9 TH/MM3 Lymphocytes # (Auto) 0.8 TH/MM3 Monocytes # (Auto) 1.1 TH/MM3 Eosinophils # (Auto) 0.0 TH/MM3 Basophils # (Auto) 0.1 TH/MM3 CBC Comment DIFF FINAL Differential Comment Prothrombin Time 10.0 SEC Prothromb Time International Ratio 1.0 RATIO Activated Partial Thromboplast Time 31.0 SEC Urine Color RED Urine Turbidity CLOUDY Urine pH 6.0 Urine Specific [place] 1.017 Urine Protein 100 mg/dL Urine Glucose (UA) NEG mg/dL Urine Ketones 10 mg/dL Urine Occult Blood LARGE Urine Nitrite POS Urine Bilirubin NEG Urine Urobilinogen 2.0 MG/DL Urine Leukocyte Esterase LARGE Urine RBC /hpf Urine WBC 38 /hpf Urine Amorphous Sediment FEW Urine Bacteria FEW /hpf Urine Yeast with Hyphae RARE Urine Yeast (Budding) RARE Microscopic Urinalysis Comment CULTURE INDICATED Blood Urea Nitrogen 43 MG/DL Creatinine 2.98 MG/DL Random Glucose 184 MG/DL Total Protein 7.2 GM/DL Albumin 3.1 GM/DL Calcium Level 8.8 MG/DL Magnesium Level 2.0 MG/DL Alkaline Phosphatase 84 U/L Aspartate Amino Transf (AST/SGOT) 19 U/L Alanine Aminotransferase (ALT/SGPT) 12 U/L Total Bilirubin 0.7 MG/DL Sodium Level 134 MEQ/L Potassium Level 5.6 MEQ/L Chloride Level 104 MEQ/L Carbon Dioxide Level 21.0 MEQ/L Anion Gap 9 MEQ/L Estimat Glomerular Filtration Rate 21 ML/MIN Total Creatine Kinase 354 U/L Creatine Kinase MB 0.5 NG/ML Creatine Kinase MB % 0.1 % Troponin I 0.16 NG/ML Lipase 67 U/L MDM Medical Decision Making Medical Screen Exam Complete: Yes Emergency Medical Condition: Yes Differential Diagnosis Sepsis, UTI, leukocytosis, dementia Narrative Course 72-year-old male presents emergency department for evaluation from [facility] for evaluation of fever and AMS for 1 day. Patient was placed on a monitor Vital signs- temp 103.0, tylenol CO administered. Based off of history and physical, sepsis protocol initiated immediately. Patient will receive IV fluids cautiously as he does have an apparent history of congestive heart failure. His Mendoza catheter was replaced and patient had approximately 800 cc of bloody, brown and hazy urine in the Mendoza bag. Vancomycin and Zosyn administered. CBC & BMP Diagram 10/27/17 20:40 Total Protein 7.2, Albumin 3.1 L, Calcium Level 8.8, Magnesium Level 2.0, Alkaline Phosphatase 84, Aspartate Amino Transf (AST/SGOT) 19, Alanine Aminotransferase (ALT/SGPT) 12, Total Bilirubin 0.7 Patient does have a history of leukocytosis however, this is quite elevated from his baseline. Lactic 2.8 Hyperkalemia present, patient had a history of hyperkalemia in September. Patient will be admitted with urosepsis, urinary retention, elevated troponin. Recommend continuing IV antibiotic therapy. Trend troponin as this likely is the result of his sepsis. Sepsis Criteria SIRS Criteria (2 or more): Temp > 100.9 or < 96.8, Heart rate over 90, WBC > 48954, < 4000 or > 10% bands Sepsis Criteria (SIRS+source): Infect source susp/known Severe Sepsis (+one): Lactate >2 Diagnosis Primary Impression: Urinary retention Additional Impressions: Elevated troponin Sepsis Qualified Codes: A41.9 - Sepsis, unspecified organism Urinary tract infection Qualified Codes: T83.511A - Infection and inflammatory reaction due to indwelling urethral catheter, initial encounter; N39.0 - Urinary tract infection , site not specified Admitting Information Admitting Physician Requests: Admit Condition: Stable Shameka Antoine Oct 27, 2017 20:54
[2017-10-27 21:29] LABS: AUTOMATED NEUTROPHIL # 17.9 TH/MM3 (1.8-7.7); BASOPHIL # 0.1 TH/MM3 (0-0.2); BASOPHIL % 0.3 % (0.0-2.0); HEMATOCRIT 29.3 % (39.0-51.0); HEMOGLOBIN 9.6 GM/DL (13.0-17.0); LYMPH % 4.3 % (9.0-44.0); LYMPHOCYTE # 0.8 TH/MM3 (1.0-4.8); MEAN CELL VOLUME 88.5 FL (80.0-100.0); MEAN CORPUSCULAR HGB CONC 32.7 % (32.0-36.0); MEAN PLATELET VOLUME 8.7 FL (7.0-11.0); MONO % 5.3 % (0.0-8.0); MONOCYTE # 1.1 TH/MM3 (0-0.9); NEUT % 90.1 % (16.0-70.0); PLATELET COUNT 200 TH/MM3 (150-450); RED BLOOD COUNT 3.31 MIL/MM3 (4.50-5.90); RED CELL DISTRIBUTION WIDTH 14.3 % (11.6-17.2); WHITE BLOOD COUNT 19.9 TH/MM3 (4.0-11.0)
--- NOTE | 2017-10-27 21:47 | RADRPT ---
EXAM DATE/TIME: 10/27/2017 20:59 [facility] COMPARISON: CHEST SINGLE AP, June 05, 2017, 11:45. INDICATIONS : Fever and cough. MEDICAL HISTORY : Hypertension. Diabetes mellitus type II. Chronic obstructive pulmonary disease. Congestive heart fail ure. SURGICAL HISTORY : None. ENCOUNTER: Initial ACUITY: 1 day PAIN SCORE: Non-responsive. LOCATION: chest FINDINGS: The heart size is enlarged. The lungs are clear. No effusion is seen. CONCLUSION: Cardiomegaly. Jas Murphy MD on October 27, 2017 at 21:44 Board Certified Radiologist. This report was verified electronically.
[2017-10-27 21:50] LABS: AMORPHOUS SEDIMENT, URINE FEW; BACTERIA, URINE FEW /hpf; BLOOD, URINE LARGE (NEG); GLUCOSE,URINE NEG (NEG); KETONE, URINE 10 mg/dL (NEG); NITRITE,URINE POS (NEG); URINE COLOR RED (YELLW/STRAW); URINE LEUKOCYTE ESTERASE LARGE (NEG)
[2017-10-27 21:52] LABS: BILIRUBIN, URINE NEG (NEG)
[2017-10-27 21:55] LABS: ALBUMIN 3.1 GM/DL (3.4-5.0); AST (GOT) 19 U/L (15-37); BLOOD UREA NITROGEN 43 MG/DL (7-18); CALCIUM 8.8 MG/DL (8.5-10.1); CHLORIDE 104 MEQ/L (98-107); CREATININE 2.98 MG/DL (0.60-1.30); GLOMERULAR FILTRATION RATE 21 ML/MIN (>89); GLUCOSE,RANDOM 184 MG/DL (74-106); SODIUM (NA) 134 MEQ/L (136-145)
[2017-10-27 21:56] LABS: ALT (GPT) 12 U/L (12-78)
[2017-10-27 22:00] LABS: ALKALINE PHOSPHATASE 84 U/L (45-117); TOTAL BILIRUBIN ADULT 0.7 MG/DL (0.2-1.0); TOTAL PROTEIN 7.2 GM/DL (6.4-8.2); TROPONIN I 0.16 NG/ML (0.02-0.05)
[2017-10-27] MEDS ORDERED: LORA1TAB12 PO (22:43)
[2017-10-27] MEDS ORDERED: FINA5TAB2 PO (22:43)
[2017-10-27] MEDS ORDERED: BACT400T PO (22:43)
[2017-10-27] MEDS ORDERED: SERT-132 PO (22:43)
--- NOTE | 2017-10-27 22:46 | RADRPT ---
EXAM DATE/TIME: 10/27/2017 22:25 [facility] COMPARISON: CT ABDOMEN & PELVIS W/O CONTRAST, March 06, 2017, 15:29. INDICATIONS : Abdomen pain with altered mental status and fever. ORAL CONTRAST: No oral contrast ingested. RADIATION DOSE: 10.75 CTDIvol (mGy) MEDICAL HISTORY : Cardiovascular disease. Hypertension. Diabetes mellitus type 2.COPD Colitis SURGICAL HISTORY : None. ENCOUNTER: Initial ACUITY: 1 day PAIN SCALE: Non-responsive LOCATION: abdomen TECHNIQUE: Volumetric scanning of the abdomen and pelvis was performed. Using automated exposure control and ad justment of the mA and/or kV according to patient size, radiation dose was kept as low as reasonably achievable to obtain optimal diagnostic quality images. DICOM format image data is available electro nically for review and comparison. FINDINGS: LOWER LUNGS: The visualized lower lungs are clear. LIVER: Homogeneous density without lesion. There is no dilation of the biliary tree. No calcified gallston es. SPLEEN: Normal size without lesion. PANCREAS: Within normal limits. KIDNEYS: There is mild perinephric stranding especially on the right. Much of this is chronic. The perinephric stranding appears less prominent on the current exam. Renal stones are not seen. ADRENAL GLANDS: Within normal limits. VASCULAR: There is no aortic aneurysm. BOWEL/MESENTERY: Colonic diverticula are present. Significant inflammatory change is not seen. ABDOMINAL WALL: There is a small umbilical hernia containing only mesenteric fat. RETROPERITONEUM: There is no lymphadenopathy. BLADDER: There is a Mendoza catheter present. REPRODUCTIVE: Within normal limits. INGUINAL: There is no lymphadenopathy or hernia. MUSCULOSKELETAL: There is degenerative change in the lumbar spine. CONCLUSION: 1. Persistent but less prominent perinephric stranding. 2. Colonic diverticula. Jas Murphy MD on October 27, 2017 at 22:39 Board Certified Radiologist. This report was verified electronically.
[2017-10-27] MEDS ORDERED: SODIUM CHLOR 0.9% 1000 ML INJ 1,000 ML IV SCH (23:12)
[2017-10-27 23:13] VITALS: TEMP 103
[2017-10-27] MEDS ORDERED: ACETAMINOPHEN 325 MG TAB PO PRN (23:15)
[2017-10-27] MEDS ORDERED: SODIUM CHLORIDE 0.9% FLUSH 10 ML FLUSH IV FLUSH PRN (23:15)
[2017-10-27] MEDS ORDERED: ACETAMINOPHEN/HYDROcodone 325 MG/5 MG TAB PO PRN (23:15)
[2017-10-27] MEDS ORDERED: MAGNESIUM HYDROXIDE SUSP 30 ML CUP PO PRN (23:15)
[2017-10-27] MEDS ORDERED: LACTULOSE SYRUP 20 GM/30 ML CUP PO PRN (23:15)
[2017-10-27] MEDS ORDERED: BISACODYL 10 MG SUPP RECTAL PRN (23:15)
[2017-10-27] MEDS ORDERED: SENNOSIDES 8.6 MG TAB PO PRN (23:15)
[2017-10-27] MEDS ORDERED: ACETAMINOPHEN/HYDROcodone 325 MG/10 MG TAB PO PRN (23:15)
[2017-10-27] MEDS ORDERED: ONDANSETRON HCL 4 MG/2 ML VIAL IVP PRN (23:15)
--- NOTE | 2017-10-27 23:17 | HHI.HP ---
[facility] Unknown Admission Diagnosis urosepsis, elevated troponin, urinary obstruction Diagnoses: (1) Sepsis Diagnosis: Principal (2) Encephalopathy Diagnosis: Principal (3) UTI (urinary tract infection) Diagnosis: Principal (4) Elevated troponin Diagnosis: Principal (5) DM (diabetes mellitus) Diagnosis: Principal (6) DNR (do not resuscitate) Diagnosis: Principal Travel History International Travel<30 Days: No Contact w/Intl Traveler <30 Da: No Traveled to Known Affected Are: No History of Present Illness This is a 72-year-old DNR male with a PMH of Anxiety, Depression, Dementia, HTN , Hyperlipidemia, COPD, DM and CHF (Unknown EF) who was sent to the ER from [facility] due to fever and AMS. Pt significantly lethargic on arrival, unable to provide any history. Per report, pt w/ significant Dementia and confusion at baseline, however noted to be more altered than normal. Temp 102.0 by EMS. On arrival here, BP 144/63, HR 102, O2 sat 93% on RA, Temp 103.0. WBC 19.9. Creatinine 2.98 previously 2.04 on 10/14/2017. Lactic Acid 2.8. Troponin 0 0.16. INR 1.0. UA positive for UTI. CXR with cardiomegaly. CT Abdomen/Pelvis with persistent but less prominent perinephric stranding. S/ p Blood Cultures, Vanc/Zosyn in ER. Mental status now improved, however remains confused. Review of Systems Except as stated in HPI: all other systems reviewed are Neg ROS: 14 point review of systems otherwise negative. Past Family Social History Past Medical History PMH: Anxiety, Depression, Dementia, HTN, Hyperlipidemia, COPD, DM and CHF ( Unknown EF) Past Surgical History PAST SURGICAL HISTORY: None Allergies: Coded Allergies: No Known Allergies (Unverified Allergy, Unknown, 10/27/17) Family History PAST FAMILY HISTORY: Reviewed. No h/o DM or CAD Social History PAST SOCIAL HISTORY: Negative for alcohol, tobacco or drugs. Physical Exam Vital Signs Vital Signs Date Time Temp Pulse Resp B/P (MAP) Pulse Ox O2 Delivery O2 Flow Rate FiO2 10/27/17 21:06 95 17 93 2.00 10/27/17 20:48 17 93 Nasal Cannula 2.00 10/27/17 20:47 93 Nasal Cannula 2.00 10/27/17 20:27 103.0 10/27/17 20:27 102 22 144/63 (90) 93 Physical Exam PE: GENERAL: Elderly white male in no acute distress, confused. HEENT: PERRLA, EOMI. No scleral icterus or conjunctival pallor. No lid lag or facial droop. CARDIOVASCULAR: Regular rate and rhythm. No obvious murmurs to auscultation. No chest tenderness to palpation. RESPIRATORY: No obvious rhonchi or wheezing. Clear to auscultation. Breath sounds equal bilaterally. GASTROINTESTINAL: Abdomen soft, non-tender, nondistended. BS normal. MUSCULOSKELETAL: Extremities without clubbing, cyanosis, or edema. No obvious deformities. NEUROLOGICAL: Awake, alert and oriented to person, knows he's in the hospital, doesn't know year. No focal neurologic deficits. Moving both upper and lower extremities spontaneously. Laboratory Laboratory Tests Test 10/27/17 20:30 10/27/17 20:40 Lactic Acid Level 2.8 Ammonia 28 White Blood Count 19.9 Red Blood Count 3.31 Hemoglobin 9.6 Hematocrit 29.3 Mean Corpuscular Volume 88.5 Mean Corpuscular Hemoglobin 29.0 Mean Corpuscular Hemoglobin Concent 32.7 Red Cell Distribution Width 14.3 Platelet Count 200 Mean Platelet Volume 8.7 Neutrophils (%) (Auto) 90.1 Lymphocytes (%) (Auto) 4.3 Monocytes (%) (Auto) 5.3 Eosinophils (%) (Auto) 0.0 Basophils (%) (Auto) 0.3 Neutrophils # (Auto) 17.9 Lymphocytes # (Auto) 0.8 Monocytes # (Auto) 1.1 Eosinophils # (Auto) 0.0 Basophils # (Auto) 0.1 CBC Comment DIFF FINAL Differential Comment Prothrombin Time 10.0 Prothromb Time International Ratio 1.0 Activated Partial Thromboplast Time 31.0 Urine Color RED Urine Turbidity CLOUDY Urine pH 6.0 Urine Specific [place] 1.017 Urine Protein 100 Urine Glucose (UA) NEG Urine Ketones 10 Urine Occult Blood LARGE Urine Nitrite POS Urine Bilirubin NEG Urine Urobilinogen 2.0 Urine Leukocyte Esterase LARGE Urine RBC Urine WBC 38 Urine Amorphous Sediment FEW Urine Bacteria FEW Urine Yeast with Hyphae RARE Urine Yeast (Budding) RARE Microscopic Urinalysis Comment CULTURE INDICATED Blood Urea Nitrogen 43 Creatinine 2.98 Random Glucose 184 Total Protein 7.2 Albumin 3.1 Calcium Level 8.8 Magnesium Level 2.0 Alkaline Phosphatase 84 Aspartate Amino Transf (AST/SGOT) 19 Alanine Aminotransferase (ALT/SGPT) 12 Total Bilirubin 0.7 Sodium Level 134 Potassium Level 5.6 Chloride Level 104 Carbon Dioxide Level 21.0 Anion Gap 9 Estimat Glomerular Filtration Rate 21 Total Creatine Kinase 354 Creatine Kinase MB 0.5 Creatine Kinase MB % 0.1 Troponin I 0.16 Lipase 67 Date/Time Source Procedure Growth Status 10/27/17 20:40 Blood Peripheral Aerobic Blood Culture Pending Received 10/27/17 20:40 Blood Peripheral Anaerobic Blood Culture Pending Received 10/27/17 20:40 Urine Random Urine Urine Culture Pending Received Result Diagram: 10/27/17203910/27/172039 Caprini VTE Risk Assessment Caprini VTE Risk Assessment: No/Low Risk (score <= 1) Caprini Risk Assessment Model Point Value = 1 Point Value = 2 Point Value = 3 Point Value = 5 Age 41-60 Minor surgery BMI > 25 kg/m2 Swollen legs Varicose veins or History of unexplained or recurrent spontaneous Oral contraceptives or hormone replacement Sepsis (< 1 month) Serious lung disease, including pneumonia (< 1 month) Abnormal pulmonary function Acute myocardial infarction Congestive heart failure (< 1 month) History of inflammatory bowel disease Medical patient at bed rest Age 61-74 Arthroscopic surgery Major open surgery (> 45 min) Laparoscopic surgery (> 45 min) Malignancy Confined to bed (> 72 hours) Immobilizing plaster cast Central venous access Age >= 75 History of VTE Family history of VTE Factor V Leiden Prothrombin [id number] Lupus anticoagulant Anticardiolipin antibodies Elevated serum homocysteine Heparin-induced thrombocytopenia Other congenital or acquired thrombophilia Stroke (< 1 month) Elective arthroplasty Hip, pelvis, or leg fracture Acute spinal cord injury (< 1 month) Prophylaxis Regimen Total Risk Factor Score Risk Level Prophylaxis Regimen 0-1 Low Early ambulation 2 Moderate Order ONE of the following: *Sequential Compression Device (SCD) *Heparin 5000 units SQ BID 3-4 Higher Order ONE of the following medications: *Heparin 5000 units SQ TID *Enoxaparin/Lovenox 40 mg SQ daily (WT < 150 kg, CrCl > 30 mL/min) *Enoxaparin/Lovenox 30 mg SQ daily (WT < 150 kg, CrCl > 10-29 mL/min) *Enoxaparin/Lovenox 30 mg SQ BID (WT < 150 kg, CrCl > 30 mL/min) AND/OR *Sequential Compression Device (SCD) 5 or more Highest Order ONE of the following medications: *Heparin 5000 units SQ TID (Preferred with Epidurals) *Enoxaparin/Lovenox 40 mg SQ daily (WT < 150 kg, CrCl > 30 mL/min) *Enoxaparin/Lovenox 30 mg SQ daily (WT < 150 kg, CrCl > 10-29 mL/min) *Enoxaparin/Lovenox 30 mg SQ BID (WT < 150 kg, CrCl > 30 mL/min) AND *Sequential Compression Device (SCD) Assessment and Plan Problem List: (1) Encephalopathy ICD Code: G93.40 - Encephalopathy, unspecified (2) Sepsis ICD Code: A41.9 - Sepsis, unspecified organism Status: Acute (3) UTI (urinary tract infection) ICD Code: N39.0 - Urinary tract infection, site not specified (4) Elevated troponin ICD Code: R74.8 - Abnormal levels of other serum enzymes Status: Acute (5) DM (diabetes mellitus) ICD Code: E11.9 - Type 2 diabetes mellitus without complications (6) DNR (do not resuscitate) ICD Code: Z66 - Do not resuscitate Assessment and Plan A/P: 1. Sepsis: Temp 103.0, HR 102, WBC 19, Lactic Acid 2.8, Source-UTI. S/p Vanc/ Zosyn, Blood Cultures in ER, will continue w/ IV Abx, follow up cultures. 2. Encephalopathy: Likely secondary to underlying dementia compounded by UTI/ Sepsis. Neuro checks. Mental status currently improved, appears to be back to baseline per 3. UTI: U/a w/ UTI, follow up cultures, continue IV Abx. 4. Elevated Trop: Trop 0.16, no c/o chest pain. EKG w/ new RBBB. Likely secondary to Sepsis w/ demand ischemia however r/o ACS. Check serial cardiac enzymes, ASA, Statin, hold Metoprolol in light of sepsis. Consult Cardiology for further eval. Pt poor candidate for aggressive intervention secondary to severe dementia. 5. DM: Sliding scale w/ Accu-Cheks. Hold Insulin until taking adequate PO and sepsis resolved. 6. DNR: Code Status reviewed, DNR in chart, order placed. 7. DVT Prophylaxis: SCD/Teds. 8. Social work for d/c planning as needed. 9. Case discussed w/ ER physician at length, labs/records/imaging reviewed by pr Physician Certification 2 Midnight Certification Type: Admission for Inpatient Services Order for Inpatient Services The services are ordered in accordance with Medicare regulations or non- Medicare payer requirements, as applicable. In the case of services not specified as inpatient-only, they are appropriately provided as inpatient services in accordance with the 2-midnight benchmark. Estimated LOS (days): 2 days is the estimated time the patient will need to remain in the hospital, assuming treatment plan goals are met and no additional complications. Post-Hospital Plan: Not yet determined Problem Qualifiers (1) Sepsis: Qualified Codes: A41.9 - Sepsis, unspecified organism Anyi Pandey MD Oct 27, 2017 23:17
[2017-10-27 23:37] VITALS: BP 109/53; PULSE 88; RESP 20; O2SAT 100
[2017-10-28] VITALS (22 sets, daily range): BP systolic 104–127; BP diastolic 51–66; PULSE 67–85; RESP 16–20; TEMP 97.8–99; O2SAT 97–100
[2017-10-28 04:55] LABS: BASOPHIL # 0.1 TH/MM3 (0-0.2); BASOPHIL % 0.4 % (0.0-2.0); HEMATOCRIT 23.8 % (39.0-51.0); LYMPH % 8.9 % (9.0-44.0); LYMPHOCYTE # 1.4 TH/MM3 (1.0-4.8); MEAN CELL VOLUME 89.3 FL (80.0-100.0); MEAN CORPUSCULAR HGB CONC 33.5 % (32.0-36.0); MEAN PLATELET VOLUME 8.5 FL (7.0-11.0); MONO % 8.6 % (0.0-8.0); MONOCYTE # 1.4 TH/MM3 (0-0.9); NEUT % 82.1 % (16.0-70.0); PLATELET COUNT 167 TH/MM3 (150-450); RED BLOOD COUNT 2.67 MIL/MM3 (4.50-5.90); RED CELL DISTRIBUTION WIDTH 14.1 % (11.6-17.2); WHITE BLOOD COUNT 15.8 TH/MM3 (4.0-11.0)
[2017-10-28 05:13] LABS: ALBUMIN 2.5 GM/DL (3.4-5.0); ALT (GPT) 11 U/L (12-78); AST (GOT) 17 U/L (15-37); BICARBONATE 20.1 MEQ/L (21.0-32.0); BLOOD UREA NITROGEN 42 MG/DL (7-18); CHLORIDE 113 MEQ/L (98-107); CREATININE 2.66 MG/DL (0.60-1.30); GLOMERULAR FILTRATION RATE 24 ML/MIN (>89); GLUCOSE,RANDOM 178 MG/DL (74-106); SODIUM (NA) 140 MEQ/L (136-145)
[2017-10-28 05:16] LABS: ALKALINE PHOSPHATASE 63 U/L (45-117); TOTAL BILIRUBIN ADULT 0.5 MG/DL (0.2-1.0); TOTAL PROTEIN 5.9 GM/DL (6.4-8.2)
[2017-10-28] MEDS: DOCUSATE SODIUM 50 MG/SENNA 8.6 MG TAB PO SCH ×2 (09:00→20:01)
[2017-10-28] MEDS: SODIUM CHLORIDE 0.9% FLUSH 10 ML FLUSH IV FLUSH SCH ×2 (09:00→20:01)
[2017-10-28] MEDS ORDERED: ASPIRIN 81 MG CHEW TAB CHEW SCH (09:00)
[2017-10-28] MEDS: FOLIC ACID 1 MG TAB PO SCH (10:01)
[2017-10-28] MEDS: ASPIRIN EC 81 MG TABEC PO SCH (10:01)
[2017-10-28] MEDS: TAMSULOSIN HCL 0.4 MG CAP PO SCH (10:01)
[2017-10-28] MEDS: FINASTERIDE 5 MG TAB PO SCH (10:02)
--- NOTE | 2017-10-28 13:02 | HHI.PR ---
Subjective Remarks This is a 72-year-old DNR male with a PMH of Anxiety, Depression, Dementia, HTN , Hyperlipidemia, COPD, DM and CHF (Unknown EF) who was sent to the ER from [facility] due to fever and AMS. Pt significantly lethargic on arrival, unable to provide any history. Per report, pt w/ significant Dementia and confusion at baseline, however noted to be more altered than normal. Temp 102.0 by EMS. On arrival here, BP 144/63, HR 102, O2 sat 93% on RA, Temp 103.0. WBC 19.9. Creatinine 2.98 previously 2.04 on 10/14/2017. Lactic Acid 2.8. Troponin 0 0.16. INR 1.0. UA positive for UTI. CXR with cardiomegaly. CT Abdomen/Pelvis with persistent but less prominent perinephric stranding. S/ p Blood Cultures, Vanc/Zosyn in ER. Mental status now improved, however remains confused. 4-8 SEEN BY CARDIOLOGY FEVERS CONTINUE ANTIBIOTICS DW RN AND PT AND CM START DM DIET AND ACCUCHECKS AM LABS Objective Vitals Vital Signs Date Time Temp Pulse Resp B/P (MAP) Pulse Ox O2 Delivery O2 Flow Rate FiO2 10/28/17 11:20 97.8 78 18 116/56 (76) 98 10/28/17 07:30 98.0 75 16 104/52 (69) 99 10/28/17 06:00 99.0 74 20 107/63 (78) 99 10/28/17 05:13 10/28/17 03:00 78 20 112/52 (72) 97 Nasal Cannula 2.00 10/28/17 00:58 98.9 10/28/17 00:50 85 20 107/51 (69) 100 Nasal Cannula 2.00 10/27/17 23:37 88 20 109/53 (71) 100 2.00 10/27/17 21:06 95 17 93 2.00 10/27/17 20:48 17 93 Nasal Cannula 2.00 10/27/17 20:47 93 Nasal Cannula 2.00 10/27/17 20:27 103.0 10/27/17 20:27 102 22 144/63 (90) 93 I/O 10/27/17 10/27/17 10/27/17 10/28/17 10/28/17 10/28/17 07:00 15:00 23:00 07:00 15:00 23:00 Intake Total 1100 ml 1517.5 ml Output Total 800 ml Balance 1100 ml 717.5 ml Intake IV Total 1100 ml 1517.5 ml Output Urine Total 800 ml # Voids 1 Result Diagram: 10/28/17 0440 10/28/17 0440 Other Results Laboratory Tests Test 10/27/17 20:30 10/27/17 20:40 10/28/17 00:10 10/28/17 04:40 Lactic Acid Level 2.8 mmol/L 1.0 mmol/L 0.7 mmol/L Ammonia 28 MCMOL/L White Blood Count 19.9 TH/MM3 15.8 TH/MM3 Red Blood Count 3.31 MIL/MM3 2.67 MIL/MM3 Hemoglobin 9.6 GM/DL 8.0 GM/DL Hematocrit 29.3 % 23.8 % Mean Corpuscular Volume 88.5 FL 89.3 FL Mean Corpuscular Hemoglobin 29.0 PG 30.0 PG Mean Corpuscular Hemoglobin Concent 32.7 % 33.5 % Red Cell Distribution Width 14.3 % 14.1 % Platelet Count 200 TH/MM3 167 TH/MM3 Mean Platelet Volume 8.7 FL 8.5 FL Neutrophils (%) (Auto) 90.1 % 82.1 % Lymphocytes (%) (Auto) 4.3 % 8.9 % Monocytes (%) (Auto) 5.3 % 8.6 % Eosinophils (%) (Auto) 0.0 % 0.0 % Basophils (%) (Auto) 0.3 % 0.4 % Neutrophils # (Auto) 17.9 TH/MM3 13.0 TH/MM3 Lymphocytes # (Auto) 0.8 TH/MM3 1.4 TH/MM3 Monocytes # (Auto) 1.1 TH/MM3 1.4 TH/MM3 Eosinophils # (Auto) 0.0 TH/MM3 0.0 TH/MM3 Basophils # (Auto) 0.1 TH/MM3 0.1 TH/MM3 CBC Comment DIFF FINAL DIFF FINAL Differential Comment Prothrombin Time 10.0 SEC Prothromb Time International Ratio 1.0 RATIO Activated Partial Thromboplast Time 31.0 SEC Urine Color RED Urine Turbidity CLOUDY Urine pH 6.0 Urine Specific [place] 1.017 Urine Protein 100 mg/dL Urine Glucose (UA) NEG mg/dL Urine Ketones 10 mg/dL Urine Occult Blood LARGE Urine Nitrite POS Urine Bilirubin NEG Urine Urobilinogen 2.0 MG/DL Urine Leukocyte Esterase LARGE Urine RBC /hpf Urine WBC 38 /hpf Urine Amorphous Sediment FEW Urine Bacteria FEW /hpf Urine Yeast with Hyphae RARE Urine Yeast (Budding) RARE Microscopic Urinalysis Comment CULTURE INDICATED Blood Urea Nitrogen 43 MG/DL 42 MG/DL Creatinine 2.98 MG/DL 2.66 MG/DL Random Glucose 184 MG/DL 178 MG/DL Total Protein 7.2 GM/DL 5.9 GM/DL Albumin 3.1 GM/DL 2.5 GM/DL Calcium Level 8.8 MG/DL 8.0 MG/DL Magnesium Level 2.0 MG/DL Alkaline Phosphatase 84 U/L 63 U/L Aspartate Amino Transf (AST/SGOT) 19 U/L 17 U/L Alanine Aminotransferase (ALT/SGPT) 12 U/L 11 U/L Total Bilirubin 0.7 MG/DL 0.5 MG/DL Sodium Level 134 MEQ/L 140 MEQ/L Potassium Level 5.6 MEQ/L 5.8 MEQ/L Chloride Level 104 MEQ/L 113 MEQ/L Carbon Dioxide Level 21.0 MEQ/L 20.1 MEQ/L Anion Gap 9 MEQ/L 7 MEQ/L Estimat Glomerular Filtration Rate 21 ML/MIN 24 ML/MIN Total Creatine Kinase 354 U/L Creatine Kinase MB 0.5 NG/ML Creatine Kinase MB % 0.1 % Troponin I 0.16 NG/ML 0.30 NG/ML Lipase 67 U/L Imaging Last Impressions Chest X-Ray 10/27/172033 Signed Impressions: Service Date/Time: Friday, October 27, 2017 20:59 - CONCLUSION: Cardiomegaly. Jas Murphy MD Abdomen/Pelvis CT 10/27/17 0000 Signed Impressions: Service Date/Time: Friday, October 27, 2017 22:25 - CONCLUSION: 1. Persistent but less prominent perinephric stranding. 2. Colonic diverticula. Jas Murphy MD Objective Remarks GENERAL: Awake and alert and oriented times person talkative and cooperative SKIN: Warm and dry. HEAD: Atraumatic. Normocephalic. EYES: Pupils equal and round. No scleral icterus. No injection or drainage. Extraocular muscles intact ENT: No nasal bleeding or discharge. Mucous membranes pink and moist. Tongue is midline NECK: Trachea midline. No JVD. Supple CARDIOVASCULAR: Regular rate and rhythm. S1-S2 no S3 or S4 RESPIRATORY: No accessory muscle use. Clear to auscultation. Breath sounds equal bilaterally. GASTROINTESTINAL: Abdomen soft, non-tender, nondistended. Hepatic and splenic margins not palpable. MUSCULOSKELETAL: Extremities without clubbing, cyanosis, or edema. No obvious deformities. NEUROLOGICAL: Awake and alert. No obvious cranial nerve deficits. Motor grossly within normal limits. 4 out of 5 muscle strength in the arms and legs. Normal speech. PSYCHIATRIC: INAppropriate mood and affect; insight and judgment ABnormal. Medications and IVs Current Medications Sodium Chloride (NS Flush) 2 ml UNSCH PRN IVF FLUSH AFTER USING IV ACCESS; Start 10/27/17 at 20:45; Stop 10/27/17 at 23:21; Status DC Acetaminophen (Tylenol Supp) 650 mg ONCE ONCE RECTAL Last administered on at 20:59; Start 10/27/17 at 20:45; Stop 10/27/17 at 20:46; Status DC Piperacillin Sod/ Tazobactam Sod 100 ml @ 200 mls/hr ONCE STAT IV Last administered on 10/27/17at 20:59; Start 10/27/17 at 20:34; Stop 10/27/17 at 21:03; Status DC Sodium Chloride 1,000 ml @ 1,000 mls/hr Q1H ONCE IV Last administered on at 20:59; Start 10/27/17 at 20:34; Stop 10/27/17 at 20:56; Status DC Sodium Chloride 1,000 ml @ 1,000 mls/hr Q1H ONCE IV ; Start 10/27/17 at 20:34; Stop 10/27/17 at 20:56; Status DC Sodium Chloride 1,000 ml @ 1,000 mls/hr Q1H ONCE IV ; Start 10/27/17 at 20:34; Stop 10/27/17 at 20:56; Status DC Vancomycin HCl 1750 mg/Sodium Chloride 517.5 ml @ 258.75 mls/ hr ONCE ONCE IV Last administered on 10/27/17at 21:53; Start 10/27/17 at 20:45; Stop 10/27/17 at 22:44; Status DC Sodium Chloride 1,000 ml @ 999 mls/hr BOLUS ONCE IV Last administered on at 21:59; Start 10/27/17 at 21:00; Stop 10/27/17 at 22:00; Status DC Aspirin (Aspirin Chew) 162 mg DAILY CHEW ; Start 10/28/17 at 09:00; Stop 10/28/17 at 09:00; Status DC Ceftriaxone Sodium 1000 mg/ Sodium Chloride 100 ml @ 200 mls/hr Q24H IV ; Start 10/28/17 at 23:00 Sodium Chloride 1,000 ml @ 100 mls/hr Q10H IV Last administered on 10/28/17at 01 :21; Start 10/27/17 at 23:12 Sodium Chloride (NS Flush) 2 ml UNSCH PRN IV FLUSH FLUSH AFTER USING IV ACCESS ; Start 10/27/17 at 23:15 Sodium Chloride (NS Flush) 2 ml BID IV FLUSH Last administered on 10/28/17at 09: 00; Start 10/28/17 at 09:00 Ondansetron HCl (Zofran Inj) 4 mg Q6H PRN IVP NAUSEA OR VOMITING; Start at 23:15 Acetaminophen (Tylenol) 650 mg Q6H PRN PO FEVER/PAIN SCALE 1 TO 2; Start at 23:15 Acetaminophen/ Hydrocodone Bitart ([place] 5-325 Mg) 1 tab Q4H PRN PO PAIN SCALE 3 TO 5; Start 10/27/17 at 23:15 Acetaminophen/ Hydrocodone Bitart ([place] 10-325 Mg) 1 tab Q4H PRN PO PAIN SCALE 6 TO 10; Start 10/27/17 at 23:15 Senna/Docusate Sodium (Batsheva-Colace) 1 tab BID PO ; Start 10/28/17 at 09:00 Magnesium Hydroxide (Milk Of Magnesia Liq) 30 ml Q12H PRN PO Mild constipation ; Start 10/27/17 at 23:15 Sennosides (Senokot) 17.2 mg Q12H PRN PO Moderate constipation; Start 10/27/17 at 23:15 Bisacodyl (Dulcolax Supp) 10 mg DAILY PRN RECTAL SEVERE CONSITIPATION; Start at 23:15 Lactulose (Lactulose Liq) 30 ml DAILY PRN PO SEVERE CONSITIPATION; Start at 23:15 Finasteride (Proscar) 5 mg DAILY PO Last administered on 10/28/17at 10:02; Start 10/28/17 at 09:00 Folic Acid (Folate) 1 mg DAILY PO Last administered on 10/28/17at 10:01; Start at 09:00 Insulin Detemir (Levemir Inj) 15 units HS SQ ; Start 10/28/17 at 21:00 Tamsulosin HCl (Flomax) 0.4 mg DAILY PO Last administered on 10/28/17at 10:01; Start 10/28/17 at 09:00 Aspirin (Ecotrin Ec) 81 mg DAILY PO Last administered on 10/28/17at 10:01; Start 10/28/17 at 09:00 A/P Problem List: (1) Encephalopathy ICD Code: G93.40 - Encephalopathy, unspecified (2) Sepsis ICD Code: A41.9 - Sepsis, unspecified organism Status: Acute (3) UTI (urinary tract infection) ICD Code: N39.0 - Urinary tract infection, site not specified (4) Elevated troponin ICD Code: R74.8 - Abnormal levels of other serum enzymes Status: Acute (5) DM (diabetes mellitus) ICD Code: E11.9 - Type 2 diabetes mellitus without complications (6) DNR (do not resuscitate) ICD Code: Z66 - Do not resuscitate Assessment and Plan 1. Sepsis: Temp 103.0, HR 102, WBC 19, Lactic Acid 2.8, Source-UTI. S/p Vanc/ Zosyn, Blood Cultures in ER, will continue w/ IV Abx, follow up cultures. 2. Encephalopathy: Likely secondary to underlying dementia compounded by UTI/ Sepsis. Neuro checks. Mental status currently improved, appears to be back to baseline per 3. UTI: U/a w/ UTI, follow up cultures, continue IV Abx. 4. Elevated Trop: Trop 0.16, no c/o chest pain. EKG w/ new RBBB. Likely secondary to Sepsis w/ demand ischemia however r/o ACS. Check serial cardiac enzymes, ASA, Statin, hold Metoprolol in light of sepsis. Consult Cardiology for further eval. Pt poor candidate for aggressive intervention secondary to severe dementia. 5. DM: Sliding scale w/ Accu-Cheks. Hold Insulin until taking adequate PO and sepsis resolved. 6. DNR: Code Status reviewed, DNR in chart, order placed. 7. DVT Prophylaxis: SCD/Teds. AM LABS Discharge Planning PENDING IMPROVEMENT OF UTI Problem Qualifiers (1) Sepsis: Qualified Codes: A41.9 - Sepsis, unspecified organism Chavo Phelps DO Oct 28, 2017 13:02
[2017-10-28] MEDS ORDERED: DEXTROSE 50% IN WATER 50 ML VIAL(D50) IV PUSH PRN (13:15)
[2017-10-28] MEDS ORDERED: GLUCAGON 1 MG/ML VIAL OTHER PRN (13:15)
--- NOTE | 2017-10-28 14:54 | MB ---
cc: Jason Low DO DATE: 10/28/2017 REASON FOR CONSULTATION: Elevated troponin. HISTORY OF PRESENT ILLNESS: Lorenzo Montiel is a pleasant 72-year-old male who presented to [facility] from [facility] due to fevers and acute mental status change. The patient is pleasantly demented and somewhat lethargic and so unable to provide a history. History is taken mostly from the chart. Apparently, the patient has significant dementia and is confused at baseline, although he was felt to be more altered than usual. On arrival of EMS, he was found to have a temperature of 102 and on arrival to the emergency room, he was found to have a temperature of 103. He was found to have acute kidney injury and an elevated troponin of 0.16. Troponin did increase to 0.44. In speaking to him, he states that he has no chest pain and has not had any chest pain and feels good, wanting to go home. PAST MEDICAL HISTORY: 1. Anxiety. 2. Depression. 3. Dementia. 4. Hypertension. 5. Hyperlipidemia. 6. COPD. 7. Diabetes. 8. Unspecified congestive heart failure. PAST SURGICAL HISTORY: Denies. ALLERGIES: NO KNOWN DRUG ALLERGIES. MEDICATIONS: 1. Bactrim b.i.d. 2. Flomax 0.4 mg daily. 3. Atenolol 50 mg daily. 4. Tylenol as needed for pain. 5. Zoloft 150 mg daily. 6. Ativan 1 mg every 8 hours as needed for anxiety. 7. Potassium 20 mEq b.i.d. 8. Lasix 40 mg daily. 9. Breo Ellipta 1 puff daily. 10. Omeprazole 20 mg daily. 11. NovoLog 4 units with meals. 12. Sliding scale insulin. 13. Lantus 15 units every night. 14. Folic acid 1 mg daily. 15. Finasteride 5 mg daily. FAMILY HISTORY: No previous noted premature coronary artery disease within the family. SOCIAL HISTORY: Denies tobacco, alcohol or drug abuse. REVIEW OF SYSTEMS: Fourteen systems were reviewed including osteopathic pertinent positives and negatives above, otherwise negative. PHYSICAL EXAMINATION: VITAL SIGNS: Temperature 98.0, heart rate 75, blood pressure 104/52, respirations 16, pulse oximetry 99% on 2 L. GENERAL: The patient appears well, in no acute distress, alert and awake. He is oriented times only himself. HEENT: Extraocular muscles intact. Mucous membranes moist. NECK: Supple. No JVD at 45 degrees. No carotid bruits heard bilaterally. Carotid upstroke is brisk in nature. HEART: Regular rate and rhythm. Positive first and second heart sounds with no noted murmurs, gallops or rubs. LUNGS: Clear to auscultation bilaterally. No wheezes, rales or rhonchi. ABDOMEN: Soft, nontender, nondistended. No organomegaly noted. EXTREMITIES: Show no clubbing, cyanosis or edema. Femoral distal pulses intact bilaterally. NEUROLOGIC: No focal deficits. SKIN: Warm, dry and intact. OSTEOPATHIC: No kyphoscoliosis, lordosis or paraspinal tender points. LABORATORY DATA: Hemoglobin 8.0, hematocrit 23.8, platelets 167. Potassium 5.8, BUN 42, creatinine 2.66. Lactic acid 2.8. Troponin 0.44. Electrocardiogram (10/27/2017, at 2335), sinus rhythm with first degree AV block, incomplete right bundle branch block, nonspecific ST-T wave changes. IMPRESSIONS: 1. Sepsis with urinary tract infection. 2. Elevated troponin. 3. Acute kidney injury. 4. Diabetes mellitus. 5. Hypertension. RECOMMENDATIONS: 1. Mr. Montiel presented with what appears to be sepsis as well as mental status change. This will be treated by the primary care team. 2. He did have minimally elevated troponins of 0.44. This is nonspecific at this time, as the patient has sepsis as well as acute kidney injury. In speaking to him, he has had no concerning symptoms of coronary insufficiency. 3. We will plan to treat him medically due to his significant dementia, no symptoms, and DNR status. 4. Suggest placing him on aspirin 81 mg daily. He will continue on his beta-juliana therapy. 5. Further recommendations will be made based on the hospital course. Thank you for allowing me to see Lorenzo Montiel. If there are any questions, please do not hesitate to call. DO AMNA Liang/KIMBERLEY , 02:25 PM , 02:53 PM
[2017-10-28] MEDS: INSULIN ASPART SUPPLEMENTAL SCALE SQ SCH ×2 (17:00→20:05)
[2017-10-28] MEDS: INSULIN DETEMIR 100 UNITS/ML VIAL SQ SCH (20:05)
[2017-10-28] MEDS: cefTRIAXone INJ 1,000 MG in SODIUM CHLORIDE 0.9% INJ 100 ML IV SCH (23:54)
[2017-10-29] VITALS (17 sets, daily range): BP systolic 106–137; BP diastolic 57–70; PULSE 62–95; RESP 18–22; TEMP 97.8–98.7; O2SAT 95–100
[2017-10-29 06:50] LABS: AUTOMATED NEUTROPHIL # 7.3 TH/MM3 (1.8-7.7); BASOPHIL # 0.1 TH/MM3 (0-0.2); BASOPHIL % 0.6 % (0.0-2.0); EOSINOPHIL # 0.4 TH/MM3 (0-0.4); EOSINOPHIL % 3.6 % (0.0-4.0); HEMATOCRIT 23.6 % (39.0-51.0); HEMOGLOBIN 7.8 GM/DL (13.0-17.0); LYMPH % 18.3 % (9.0-44.0); MEAN CELL VOLUME 88.6 FL (80.0-100.0); MEAN CORPUSCULAR HEMOGLOBIN 29.3 PG (27.0-34.0); MEAN CORPUSCULAR HGB CONC 33.1 % (32.0-36.0); MEAN PLATELET VOLUME 8.6 FL (7.0-11.0); MONO % 11.8 % (0.0-8.0); MONOCYTE # 1.3 TH/MM3 (0-0.9); NEUT % 65.7 % (16.0-70.0); PLATELET COUNT 178 TH/MM3 (150-450); RED BLOOD COUNT 2.67 MIL/MM3 (4.50-5.90); WHITE BLOOD COUNT 11.2 TH/MM3 (4.0-11.0)
[2017-10-29 07:27] LABS: ALBUMIN 2.6 GM/DL (3.4-5.0); ALKALINE PHOSPHATASE 59 U/L (45-117); ALT (GPT) 13 U/L (12-78); AST (GOT) 19 U/L (15-37); BICARBONATE 22.4 MEQ/L (21.0-32.0); BLOOD UREA NITROGEN 39 MG/DL (7-18); CALCIUM 8.6 MG/DL (8.5-10.1); CHLORIDE 112 MEQ/L (98-107); CREATININE 2.04 MG/DL (0.60-1.30); FREE T4 0.86 NG/DL (0.76-1.46); GLOMERULAR FILTRATION RATE 32 ML/MIN (>89); GLUCOSE,RANDOM 115 MG/DL (74-106); MAGNESIUM 2.4 MG/DL (1.5-2.5); PHOSPHORUS 3.1 MG/DL (2.5-4.9); SODIUM (NA) 143 MEQ/L (136-145); TOTAL BILIRUBIN ADULT 0.4 MG/DL (0.2-1.0); TOTAL PROTEIN 6.3 GM/DL (6.4-8.2)
[2017-10-29] MEDS: INSULIN ASPART SUPPLEMENTAL SCALE SQ SCH ×4 (08:00→21:00)
[2017-10-29] MEDS: FINASTERIDE 5 MG TAB PO SCH (09:05)
[2017-10-29] MEDS: DOCUSATE SODIUM 50 MG/SENNA 8.6 MG TAB PO SCH ×2 (09:05→22:08)
[2017-10-29] MEDS: TAMSULOSIN HCL 0.4 MG CAP PO SCH (09:05)
[2017-10-29] MEDS: FOLIC ACID 1 MG TAB PO SCH (09:05)
[2017-10-29] MEDS: ASPIRIN EC 81 MG TABEC PO SCH (09:05)
[2017-10-29] MEDS: SODIUM CHLORIDE 0.9% FLUSH 10 ML FLUSH IV FLUSH SCH ×2 (09:06→22:03)
--- NOTE | 2017-10-29 09:25 | EKG ---
Date Performed: 10/27/2017 Time Performed: 23:35:04 PTAGE: 72 years EKG: Sinus rhythm WITH FIRST DEGREE AV BLOCK INCOMPLETE RIGHT BUNDLE BRANCH BLOCK NONSPECIFIC ST & T-WAVE ABNORMALITY ABNORMAL ECG PREVIOUS TRACING : 10/27/2017 20.35 Since previous tracing, the complete right bundle branch bl ock has changed to an incomplete right bundle branch block. This may be heart rate related as heart r ate has decreased from 102 to 88 on this tracing. Clinical correlation is recommended. DOCTOR: Yaya Jenkins Interpretating Date/Time 10/29/2017 09:25:13
--- NOTE | 2017-10-29 09:25 | EKG ---
Date Performed: 10/27/2017 Time Performed: 20:35:16 PTAGE: 72 years EKG: SINUS TACHYCARDIA RIGHT BUNDLE BRANCH BLOCK ABNORMAL ECG PREVIOUS TRACING : 05/27/17 Since previous tracing, right bundle branch block is new. DOCTOR: Yaya Jenkins Interpretating Date/Time 10/29/2017 09:24:02
--- NOTE | 2017-10-29 12:15 | HHI.PR ---
Subjective Remarks This is a 72-year-old DNR male with a PMH of Anxiety, Depression, Dementia, HTN , Hyperlipidemia, COPD, DM and CHF (Unknown EF) who was sent to the ER from [facility] due to fever and AMS. Pt significantly lethargic on arrival, unable to provide any history. Per report, pt w/ significant Dementia and confusion at baseline, however noted to be more altered than normal. Temp 102.0 by EMS. On arrival here, BP 144/63, HR 102, O2 sat 93% on RA, Temp 103.0. WBC 19.9. Creatinine 2.98 previously 2.04 on 10/14/2017. Lactic Acid 2.8. Troponin 0 0.16. INR 1.0. UA positive for UTI. CXR with cardiomegaly. CT Abdomen/Pelvis with persistent but less prominent perinephric stranding. S/ p Blood Cultures, Vanc/Zosyn in ER. Mental status now improved, however remains confused. 4-8 SEEN BY CARDIOLOGY FEVERS CONTINUE ANTIBIOTICS DW RN AND PT AND CM START DM DIET AND ACCUCHECKS AM LABS 4-9 positive blood cultures continue zosyn and rocephin await sensitivities DW RN AND PT AND CM VERY CONFUSED TODAY WILL NEED HALDOL DW RN AND PT Objective Vitals Vital Signs Date Time Temp Pulse Resp B/P (MAP) Pulse Ox O2 Delivery O2 Flow Rate FiO2 10/29/17 11:52 97.8 80 18 137/67 (90) 96 10/29/17 11:52 80 10/29/17 10:21 95 10/29/17 09:34 66 10/29/17 08:33 81 10/29/17 08:33 97.9 81 18 135/70 (91) 95 10/29/17 08:33 95 Room Air 10/29/17 06:00 68 10/29/17 05:00 74 10/29/17 04:00 Room Air 10/29/17 04:00 98.7 69 18 106/57 (73) 98 10/29/17 04:00 69 10/29/17 03:00 82 10/29/17 02:00 67 10/29/17 01:00 82 10/29/17 00:00 98.3 86 20 125/69 (87) 98 10/29/17 00:00 86 10/28/17 23:00 82 10/28/17 22:00 67 10/28/17 21:00 78 10/28/17 20:00 98.5 75 20 114/55 (74) 97 10/28/17 20:00 80 10/28/17 18:00 81 10/28/17 17:00 78 10/28/17 16:00 78 10/28/17 15:00 80 10/28/17 15:00 98.5 79 16 127/66 (86) 99 10/28/17 14:00 78 10/28/17 13:00 76 I/O 10/28/17 10/28/17 10/28/17 10/29/17 10/29/17 10/29/17 07:00 15:00 23:00 07:00 15:00 23:00 Intake Total 1517.5 ml 650 ml 480 ml Output Total 800 ml 720 ml 850 ml Balance 717.5 ml -70 ml -370 ml Intake Oral 650 ml 480 ml IV Total 1517.5 ml Output Urine Total 800 ml 720 ml 850 ml # Voids 1 # Bowel Movements 0 Result Diagram: 10/29/17 0611 10/29/17 0617 Other Results Laboratory Tests Test 10/27/17 20:30 10/27/17 20:40 10/28/17 00:10 10/28/17 04:40 Lactic Acid Level 2.8 mmol/L 1.0 mmol/L 0.7 mmol/L Ammonia 28 MCMOL/L White Blood Count 19.9 TH/MM3 15.8 TH/MM3 Red Blood Count 3.31 MIL/MM3 2.67 MIL/MM3 Hemoglobin 9.6 GM/DL 8.0 GM/DL Hematocrit 29.3 % 23.8 % Mean Corpuscular Volume 88.5 FL 89.3 FL Mean Corpuscular Hemoglobin 29.0 PG 30.0 PG Mean Corpuscular Hemoglobin Concent 32.7 % 33.5 % Red Cell Distribution Width 14.3 % 14.1 % Platelet Count 200 TH/MM3 167 TH/MM3 Mean Platelet Volume 8.7 FL 8.5 FL Neutrophils (%) (Auto) 90.1 % 82.1 % Lymphocytes (%) (Auto) 4.3 % 8.9 % Monocytes (%) (Auto) 5.3 % 8.6 % Eosinophils (%) (Auto) 0.0 % 0.0 % Basophils (%) (Auto) 0.3 % 0.4 % Neutrophils # (Auto) 17.9 TH/MM3 13.0 TH/MM3 Lymphocytes # (Auto) 0.8 TH/MM3 1.4 TH/MM3 Monocytes # (Auto) 1.1 TH/MM3 1.4 TH/MM3 Eosinophils # (Auto) 0.0 TH/MM3 0.0 TH/MM3 Basophils # (Auto) 0.1 TH/MM3 0.1 TH/MM3 CBC Comment DIFF FINAL DIFF FINAL Differential Comment Prothrombin Time 10.0 SEC Prothromb Time International Ratio 1.0 RATIO Activated Partial Thromboplast Time 31.0 SEC Urine Color RED Urine Turbidity CLOUDY Urine pH 6.0 Urine Specific [place] 1.017 Urine Protein 100 mg/dL Urine Glucose (UA) NEG mg/dL Urine Ketones 10 mg/dL Urine Occult Blood LARGE Urine Nitrite POS Urine Bilirubin NEG Urine Urobilinogen 2.0 MG/DL Urine Leukocyte Esterase LARGE Urine RBC /hpf Urine WBC 38 /hpf Urine Amorphous Sediment FEW Urine Bacteria FEW /hpf Urine Yeast with Hyphae RARE Urine Yeast (Budding) RARE Microscopic Urinalysis Comment CULTURE INDICATED Blood Urea Nitrogen 43 MG/DL 42 MG/DL Creatinine 2.98 MG/DL 2.66 MG/DL Random Glucose 184 MG/DL 178 MG/DL Total Protein 7.2 GM/DL 5.9 GM/DL Albumin 3.1 GM/DL 2.5 GM/DL Calcium Level 8.8 MG/DL 8.0 MG/DL Magnesium Level 2.0 MG/DL Alkaline Phosphatase 84 U/L 63 U/L Aspartate Amino Transf (AST/SGOT) 19 U/L 17 U/L Alanine Aminotransferase (ALT/SGPT) 12 U/L 11 U/L Total Bilirubin 0.7 MG/DL 0.5 MG/DL Sodium Level 134 MEQ/L 140 MEQ/L Potassium Level 5.6 MEQ/L 5.8 MEQ/L Chloride Level 104 MEQ/L 113 MEQ/L Carbon Dioxide Level 21.0 MEQ/L 20.1 MEQ/L Anion Gap 9 MEQ/L 7 MEQ/L Estimat Glomerular Filtration Rate 21 ML/MIN 24 ML/MIN Total Creatine Kinase 354 U/L Creatine Kinase MB 0.5 NG/ML Creatine Kinase MB % 0.1 % Troponin I 0.16 NG/ML 0.30 NG/ML Lipase 67 U/L Test 10/28/17 13:33 10/29/17 06:11 10/29/17 06:17 Troponin I 0.44 NG/ML White Blood Count 11.2 TH/MM3 Red Blood Count 2.67 MIL/MM3 Hemoglobin 7.8 GM/DL Hematocrit 23.6 % Mean Corpuscular Volume 88.6 FL Mean Corpuscular Hemoglobin 29.3 PG Mean Corpuscular Hemoglobin Concent 33.1 % Red Cell Distribution Width 14.0 % Platelet Count 178 TH/MM3 Mean Platelet Volume 8.6 FL Neutrophils (%) (Auto) 65.7 % Lymphocytes (%) (Auto) 18.3 % Monocytes (%) (Auto) 11.8 % Eosinophils (%) (Auto) 3.6 % Basophils (%) (Auto) 0.6 % Neutrophils # (Auto) 7.3 TH/MM3 Lymphocytes # (Auto) 2.0 TH/MM3 Monocytes # (Auto) 1.3 TH/MM3 Eosinophils # (Auto) 0.4 TH/MM3 Basophils # (Auto) 0.1 TH/MM3 CBC Comment DIFF FINAL Differential Comment Blood Urea Nitrogen 39 MG/DL Creatinine 2.04 MG/DL Random Glucose 115 MG/DL Total Protein 6.3 GM/DL Albumin 2.6 GM/DL Calcium Level 8.6 MG/DL Phosphorus Level 3.1 MG/DL Magnesium Level 2.4 MG/DL Alkaline Phosphatase 59 U/L Aspartate Amino Transf (AST/SGOT) 19 U/L Alanine Aminotransferase (ALT/SGPT) 13 U/L Total Bilirubin 0.4 MG/DL Sodium Level 143 MEQ/L Potassium Level 4.1 MEQ/L Chloride Level 112 MEQ/L Carbon Dioxide Level 22.4 MEQ/L Anion Gap 9 MEQ/L Estimat Glomerular Filtration Rate 32 ML/MIN Free Thyroxine 0.86 NG/DL Thyroid Stimulating Hormone 3rd Gen 1.070 uIU/ML Imaging Last Impressions Chest X-Ray [id number]/27/[id number] Signed Impressions: Service Date/Time: Friday, October 27, 2017 20:59 - CONCLUSION: Cardiomegaly. Jas Murphy MD Abdomen/Pelvis CT 10/27/17 0000 Signed Impressions: Service Date/Time: Friday, October 27, 2017 22:25 - CONCLUSION: 1. Persistent but less prominent perinephric stranding. 2. Colonic diverticula. Jas Murphy MD Objective Remarks GENERAL: Awake and alert and oriented times person talkative and BUT NOT cooperative SKIN: Warm and dry. HEAD: Atraumatic. Normocephalic. EYES: Pupils equal and round. No scleral icterus. No injection or drainage. Extraocular muscles intact ENT: No nasal bleeding or discharge. Mucous membranes pink and moist. Tongue is midline NECK: Trachea midline. No JVD. Supple CARDIOVASCULAR: Regular rate and rhythm. S1-S2 no S3 or S4 RESPIRATORY: No accessory muscle use. Clear to auscultation. Breath sounds equal bilaterally. GASTROINTESTINAL: Abdomen soft, non-tender, nondistended. Hepatic and splenic margins not palpable. MUSCULOSKELETAL: Extremities without clubbing, cyanosis, or edema. No obvious deformities. NEUROLOGICAL: Awake and alert. No obvious cranial nerve deficits. Motor grossly within normal limits. 4 out of 5 muscle strength in the arms and legs. Normal speech. PSYCHIATRIC: INAppropriate mood and affect; insight and judgment ABnormal. Medications and IVs Current Medications Sodium Chloride (NS Flush) 2 ml UNSCH PRN IVF FLUSH AFTER USING IV ACCESS; Start 10/27/17 at 20:45; Stop 10/27/17 at 23:21; Status DC Acetaminophen (Tylenol Supp) 650 mg ONCE ONCE RECTAL Last administered on at 20:59; Start 10/27/17 at 20:45; Stop 10/27/17 at 20:46; Status DC Piperacillin Sod/ Tazobactam Sod 100 ml @ 200 mls/hr ONCE STAT IV Last administered on 10/27/17at 20:59; Start 10/27/17 at 20:34; Stop 10/27/17 at 21:03; Status DC Sodium Chloride 1,000 ml @ 1,000 mls/hr Q1H ONCE IV Last administered on at 20:59; Start 10/27/17 at 20:34; Stop 10/27/17 at 20:56; Status DC Sodium Chloride 1,000 ml @ 1,000 mls/hr Q1H ONCE IV ; Start 10/27/17 at 20:34; Stop 10/27/17 at 20:56; Status DC Sodium Chloride 1,000 ml @ 1,000 mls/hr Q1H ONCE IV ; Start 10/27/17 at 20:34; Stop 10/27/17 at 20:56; Status DC Vancomycin HCl 1750 mg/Sodium Chloride 517.5 ml @ 258.75 mls/ hr ONCE ONCE IV Last administered on 10/27/17at 21:53; Start 10/27/17 at 20:45; Stop 10/27/17 at 22:44; Status DC Sodium Chloride 1,000 ml @ 999 mls/hr BOLUS ONCE IV Last administered on at 21:59; Start 10/27/17 at 21:00; Stop 10/27/17 at 22:00; Status DC Aspirin (Aspirin Chew) 162 mg DAILY CHEW ; Start 10/28/17 at 09:00; Stop 10/28/17 at 09:00; Status DC Ceftriaxone Sodium 1000 mg/ Sodium Chloride 100 ml @ 200 mls/hr Q24H IV Last administered on 10/28/17at 23:54; Start 10/28/17 at 23:00 Sodium Chloride 1,000 ml @ 100 mls/hr Q10H IV Last administered on 10/28/17at 01 :21; Start 10/27/17 at 23:12; Stop 10/28/17 at 19:09; Status DC Sodium Chloride (NS Flush) 2 ml UNSCH PRN IV FLUSH FLUSH AFTER USING IV ACCESS ; Start 10/27/17 at 23:15 Sodium Chloride (NS Flush) 2 ml BID IV FLUSH Last administered on 10/29/17at 09: 06; Start 10/28/17 at 09:00 Ondansetron HCl (Zofran Inj) 4 mg Q6H PRN IVP NAUSEA OR VOMITING; Start at 23:15 Acetaminophen (Tylenol) 650 mg Q6H PRN PO FEVER/PAIN SCALE 1 TO 2; Start at 23:15 Acetaminophen/ Hydrocodone Bitart ([place] 5-325 Mg) 1 tab Q4H PRN PO PAIN SCALE 3 TO 5 Last administered on 10/28/17at 23:54; Start 10/27/17 at 23:15 Acetaminophen/ Hydrocodone Bitart ([place] 10-325 Mg) 1 tab Q4H PRN PO PAIN SCALE 6 TO 10; Start 10/27/17 at 23:15 Senna/Docusate Sodium (Batsheva-Colace) 1 tab BID PO Last administered on 10/29/17at 09:05; Start 10/28/17 at 09:00 Magnesium Hydroxide (Milk Of Magnesia Liq) 30 ml Q12H PRN PO Mild constipation ; Start 10/27/17 at 23:15 Sennosides (Senokot) 17.2 mg Q12H PRN PO Moderate constipation; Start 10/27/17 at 23:15 Bisacodyl (Dulcolax Supp) 10 mg DAILY PRN RECTAL SEVERE CONSITIPATION; Start at 23:15 Lactulose (Lactulose Liq) 30 ml DAILY PRN PO SEVERE CONSITIPATION; Start at 23:15 Finasteride (Proscar) 5 mg DAILY PO Last administered on 10/29/17at 09:05; Start 10/28/17 at 09:00 Folic Acid (Folate) 1 mg DAILY PO Last administered on 10/29/17at 09:05; Start at 09:00 Insulin Detemir (Levemir Inj) 15 units HS SQ ; Start 10/28/17 at 21:00 Tamsulosin HCl (Flomax) 0.4 mg DAILY PO Last administered on 10/29/17at 09:05; Start 10/28/17 at 09:00 Aspirin (Ecotrin Ec) 81 mg DAILY PO Last administered on 10/29/17at 09:05; Start 10/28/17 at 09:00 Dextrose (D50w (Vial) Inj) 50 ml UNSCH PRN IV PUSH HYPOGLYCEMIA-SEE COMMENTS; Start 10/28/17 at 13:15 Glucagon (Glucagon Inj) 1 mg UNSCH PRN OTHER HYPOGLYCEMIA-SEE COMMENTS; Start 10/28/17 at 13:15 Insulin Aspart (NovoLOG SUPPLEMENTAL SCALE) 1 ACHS SLIDING SCALE SQ Last administered on 10/28/17at 17:00; Start 10/28/17 at 17:00 Clonidine (Catapres) 0.1 mg Q4H PRN PO SBP>160, DBP>90; Start 10/28/17 at 13:15 Piperacillin Sod/ Tazobactam Sod 50 ml @ 100 mls/hr Q6H IV ; Start 10/29/17 at 14:00 A/P Problem List: (1) Encephalopathy ICD Code: G93.40 - Encephalopathy, unspecified (2) Sepsis ICD Code: A41.9 - Sepsis, unspecified organism Status: Acute (3) UTI (urinary tract infection) ICD Code: N39.0 - Urinary tract infection, site not specified (4) Elevated troponin ICD Code: R74.8 - Abnormal levels of other serum enzymes Status: Acute (5) DM (diabetes mellitus) ICD Code: E11.9 - Type 2 diabetes mellitus without complications (6) DNR (do not resuscitate) ICD Code: Z66 - Do not resuscitate Assessment and Plan 1. Sepsis: Temp 103.0, HR 102, WBC 19, Lactic Acid 2.8, Source-UTI. S/p Vanc/ Zosyn, Blood Cultures in ER, will continue w/ IV Abx, follow up cultures. ON ROCEPHIN AND ZOSYN 2. Encephalopathy: Likely secondary to underlying dementia compounded by UTI/ Sepsis. Neuro checks. Mental status currently improved, appears to be back to baseline per 3. UTI: U/a w/ UTI, follow up cultures, continue IV Abx. -ROCEPHIN AND ZOSYN 4. Elevated Trop: Trop 0.16, no c/o chest pain. EKG w/ new RBBB. Likely secondary to Sepsis w/ demand ischemia however r/o ACS. Check serial cardiac enzymes, ASA, Statin, hold Metoprolol in light of sepsis. Consult Cardiology for further eval. Pt poor candidate for aggressive intervention secondary to severe dementia. 5. DM: Sliding scale w/ Accu-Cheks. Hold Insulin until taking adequate PO and sepsis resolved. 6. DNR: Code Status reviewed, DNR in chart, order placed. 7. DVT Prophylaxis: SCD/Teds. HALDOL PRN TODAY AM LABS PT AND OT Discharge Planning PENDING IMPROVEMENT OF UTI AND SEPSIS Problem Qualifiers (1) Sepsis: Qualified Codes: A41.9 - Sepsis, unspecified organism Chavo Phelps DO Oct 29, 2017 12:14
[2017-10-29] MEDS: PIPERACIL-TAZO 3.375 GM PREMIX 50 ML IV SCH ×2 (14:00→21:59)
[2017-10-29] MEDS: risperiDONE 0.25 MG TAB PO SCH ×2 (15:14→22:08)
[2017-10-29] MEDS: HALOPERIDOL 0.5 MG TAB PO SCH ×2 (15:15→22:08)
--- NOTE | 2017-10-29 15:40 | PD.CARD.PN ---
Subjective Subjective Remarks No events overnight Patient still confused, known to have baseline dementia Objective Medications Current Medications Medications (Trade) Dose Ordered Sig/Juan Route Start Time Stop Time Status Last Admin Ceftriaxone Sodium 1000 mg/ Sodium Chloride 100 ml @ 200 mls/hr Q24H IV 10/28/17 23:00 10/28/17 23:54 (NS Flush) 2 ml UNSCH PRN IV FLUSH 10/27/17 23:15 (NS Flush) 2 ml BID IV FLUSH 10/28/17 09:00 10/29/17 09:06 (Zofran Inj) 4 mg Q6H PRN IVP 10/27/17 23:15 (Tylenol) 650 mg Q6H PRN PO 10/27/17 23:15 ([place] 5-325 Mg) 1 tab Q4H PRN PO 10/27/17 23:15 10/28/17 23:54 ([place] 10-325 Mg) 1 tab Q4H PRN PO 10/27/17 23:15 (Batsheva-Colace) 1 tab BID PO 10/28/17 09:00 10/29/17 09:05 (Milk Of Magnesia Liq) 30 ml Q12H PRN PO 10/27/17 23:15 (Senokot) 17.2 mg Q12H PRN PO 10/27/17 23:15 (Dulcolax Supp) 10 mg DAILY PRN RECTAL 10/27/17 23:15 (Lactulose Liq) 30 ml DAILY PRN PO 10/27/17 23:15 (Proscar) 5 mg DAILY PO 10/28/17 09:00 10/29/17 09:05 (Folate) 1 mg DAILY PO 10/28/17 09:00 10/29/17 09:05 (Levemir Inj) 15 units HS SQ 10/28/17 21:00 (Flomax) 0.4 mg DAILY PO 10/28/17 09:00 10/29/17 09:05 (Ecotrin Ec) 81 mg DAILY PO 10/28/17 09:00 10/29/17 09:05 (D50w (Vial) Inj) 50 ml UNSCH PRN IV PUSH 10/28/17 13:15 (Glucagon Inj) 1 mg UNSCH PRN OTHER 10/28/17 13:15 (NovoLOG SUPPLEMENTAL SCALE) 1 ACHS SLIDING SCALE SQ 10/28/17 17:00 10/29/17 12:00 (Catapres) 0.1 mg Q4H PRN PO 10/28/17 13:15 Piperacillin Sod/ Tazobactam Sod 50 ml @ 100 mls/hr Q6H IV 10/29/17 14:00 10/29/17 14:00 (Haldol) 0.5 mg BID PO 10/29/17 14:00 10/29/17 15:15 (Haldol Inj) 2 mg Q8H PRN IM 10/29/17 12:45 (risperDAL) 0.25 mg Q12HR PO 10/29/17 14:00 10/29/17 15:14 Vital Signs / I&O Vital Signs Date Time Temp Pulse Resp B/P (MAP) Pulse Ox O2 Delivery O2 Flow Rate FiO2 10/29/17 14:28 62 10/29/17 13:13 73 10/29/17 12:30 72 10/29/17 11:52 97.8 80 18 137/67 (90) 96 10/29/17 11:52 80 10/29/17 10:21 95 10/29/17 09:34 66 10/29/17 08:33 81 10/29/17 08:33 97.9 81 18 135/70 (91) 95 10/29/17 08:33 95 Room Air 10/29/17 06:00 68 10/29/17 05:00 74 10/29/17 04:00 Room Air 10/29/17 04:00 98.7 69 18 106/57 (73) 98 10/29/17 04:00 69 10/29/17 03:00 82 10/29/17 02:00 67 10/29/17 01:00 82 10/29/17 00:00 98.3 86 20 125/69 (87) 98 10/29/17 00:00 86 10/28/17 23:00 82 10/28/17 22:00 67 10/28/17 21:00 78 10/28/17 20:00 98.5 75 20 114/55 (74) 97 10/28/17 20:00 80 10/28/17 18:00 81 10/28/17 17:00 78 10/28/17 16:00 78 I/O 10/28/17 10/28/17 10/28/17 10/29/17 10/29/17 10/29/17 07:00 15:00 23:00 07:00 15:00 23:00 Intake Total 1517.5 ml 650 ml 480 ml Output Total 800 ml 720 ml 850 ml Balance 717.5 ml -70 ml -370 ml Intake Oral 650 ml 480 ml IV Total 1517.5 ml Output Urine Total 800 ml 720 ml 850 ml # Voids 1 # Bowel Movements 0 Physical Exam GENERAL: NAD, alert and awake SKIN: Warm and dry. HEAD: Atraumatic. Normocephalic. EYES: Pupils equal and round. No scleral icterus. No injection or drainage. ENT: No nasal bleeding or discharge. Mucous membranes pink and moist. NECK: Trachea midline. No JVD. CARDIOVASCULAR: Regular rate and rhythm. RESPIRATORY: No accessory muscle use. Clear to auscultation. Breath sounds equal bilaterally. GASTROINTESTINAL: Abdomen soft, non-tender, nondistended. Hepatic and splenic margins not palpable. MUSCULOSKELETAL: Extremities without clubbing, cyanosis, or edema. No obvious deformities. NEUROLOGICAL: Awake and alert. No obvious cranial nerve deficits. Motor grossly within normal limits. Five out of 5 muscle strength in the arms and legs. Normal speech. PSYCHIATRIC: Appropriate mood and affect; insight and judgment normal. Laboratory Laboratory Tests Test 10/29/17 06:11 10/29/17 06:17 White Blood Count 11.2 TH/MM3 Red Blood Count 2.67 MIL/MM3 Hemoglobin 7.8 GM/DL Hematocrit 23.6 % Mean Corpuscular Volume 88.6 FL Mean Corpuscular Hemoglobin 29.3 PG Mean Corpuscular Hemoglobin Concent 33.1 % Red Cell Distribution Width 14.0 % Platelet Count 178 TH/MM3 Mean Platelet Volume 8.6 FL Neutrophils (%) (Auto) 65.7 % Lymphocytes (%) (Auto) 18.3 % Monocytes (%) (Auto) 11.8 % Eosinophils (%) (Auto) 3.6 % Basophils (%) (Auto) 0.6 % Neutrophils # (Auto) 7.3 TH/MM3 Lymphocytes # (Auto) 2.0 TH/MM3 Monocytes # (Auto) 1.3 TH/MM3 Eosinophils # (Auto) 0.4 TH/MM3 Basophils # (Auto) 0.1 TH/MM3 CBC Comment DIFF FINAL Differential Comment Blood Urea Nitrogen 39 MG/DL Creatinine 2.04 MG/DL Random Glucose 115 MG/DL Total Protein 6.3 GM/DL Albumin 2.6 GM/DL Calcium Level 8.6 MG/DL Phosphorus Level 3.1 MG/DL Magnesium Level 2.4 MG/DL Alkaline Phosphatase 59 U/L Aspartate Amino Transf (AST/SGOT) 19 U/L Alanine Aminotransferase (ALT/SGPT) 13 U/L Total Bilirubin 0.4 MG/DL Sodium Level 143 MEQ/L Potassium Level 4.1 MEQ/L Chloride Level 112 MEQ/L Carbon Dioxide Level 22.4 MEQ/L Anion Gap 9 MEQ/L Estimat Glomerular Filtration Rate 32 ML/MIN Free Thyroxine 0.86 NG/DL Thyroid Stimulating Hormone 3rd Gen 1.070 uIU/ML Assessment and Plan Problem List: (1) Bacteremia ICD Codes: R78.81 - Bacteremia (2) Dementia ICD Codes: F03.90 - Unspecified dementia without behavioral disturbance (3) Elevated troponin ICD Codes: R74.8 - Abnormal levels of other serum enzymes (4) Altered mental status ICD Codes: R41.82 - Altered mental status, unspecified Status: Acute (5) Major depressive disorder, recurrent, moderate ICD Codes: F33.1 - Major depressive disorder, recurrent, moderate Status: Acute (6) DM (diabetes mellitus) ICD Codes: E11.9 - Type 2 diabetes mellitus without complications Assessment and Plan 1) Elevated trop Asymptomatic Due to baseline dementia, asymptomatic and DNR status, will plan on medical management 2) Sepsis with bacteremia Check 2D echo to evaluate valves Jason Low DO Oct 29, 2017 15:40
[2017-10-29 16:24] LABS: HEMOGLOBIN A1C 6.6 % (4.3-6.0)
[2017-10-29] MEDS: INSULIN DETEMIR 100 UNITS/ML VIAL SQ SCH (22:09)
[2017-10-30] VITALS (9 sets, daily range): BP systolic 120–159; BP diastolic 60–72; PULSE 63–87; RESP 18–22; TEMP 97.6–98.4; O2SAT 95–98
[2017-10-30] MEDS: PIPERACIL-TAZO 3.375 GM PREMIX 50 ML IV SCH ×3 (00:30→09:07)
[2017-10-30] MEDS: cefTRIAXone INJ 1,000 MG in SODIUM CHLORIDE 0.9% INJ 100 ML IV SCH (00:40)
[2017-10-30] MEDS: HALOPERIDOL LACTATE 5 MG/ML AMP IM PRN (03:57)
[2017-10-30 07:59] LABS: AUTOMATED NEUTROPHIL # 5.3 TH/MM3 (1.8-7.7); BASOPHIL # 0.1 TH/MM3 (0-0.2); BASOPHIL % 0.7 % (0.0-2.0); EOSINOPHIL # 0.4 TH/MM3 (0-0.4); EOSINOPHIL % 4.3 % (0.0-4.0); HEMATOCRIT 24.1 % (39.0-51.0); HEMOGLOBIN 8.1 GM/DL (13.0-17.0); LYMPH % 23.1 % (9.0-44.0); MEAN CELL VOLUME 87.7 FL (80.0-100.0); MEAN CORPUSCULAR HEMOGLOBIN 29.4 PG (27.0-34.0); MEAN CORPUSCULAR HGB CONC 33.5 % (32.0-36.0); MEAN PLATELET VOLUME 8.4 FL (7.0-11.0); MONOCYTE # 0.8 TH/MM3 (0-0.9); NEUT % 61.9 % (16.0-70.0); PLATELET COUNT 186 TH/MM3 (150-450); RED BLOOD COUNT 2.75 MIL/MM3 (4.50-5.90); RED CELL DISTRIBUTION WIDTH 13.8 % (11.6-17.2); WHITE BLOOD COUNT 8.5 TH/MM3 (4.0-11.0)
[2017-10-30] MEDS: INSULIN ASPART SUPPLEMENTAL SCALE SQ SCH ×4 (08:00→22:00)
[2017-10-30 08:34] LABS: ALBUMIN 2.5 GM/DL (3.4-5.0); AST (GOT) 13 U/L (15-37); BICARBONATE 22.3 MEQ/L (21.0-32.0); BLOOD UREA NITROGEN 31 MG/DL (7-18); CALCIUM 8.7 MG/DL (8.5-10.1); CHLORIDE 114 MEQ/L (98-107); CREATININE 1.78 MG/DL (0.60-1.30); GLOMERULAR FILTRATION RATE 38 ML/MIN (>89); GLUCOSE,RANDOM 108 MG/DL (74-106); MAGNESIUM 2.2 MG/DL (1.5-2.5); SODIUM (NA) 145 MEQ/L (136-145)
[2017-10-30 08:37] LABS: ALKALINE PHOSPHATASE 59 U/L (45-117); ALT (GPT) 12 U/L (12-78); PHOSPHORUS 3.4 MG/DL (2.5-4.9); TOTAL BILIRUBIN ADULT 0.3 MG/DL (0.2-1.0); TOTAL PROTEIN 6.4 GM/DL (6.4-8.2)
[2017-10-30] MEDS: risperiDONE 0.25 MG TAB PO SCH ×2 (09:06→21:59)
[2017-10-30] MEDS: FINASTERIDE 5 MG TAB PO SCH (09:06)
[2017-10-30] MEDS: HALOPERIDOL 0.5 MG TAB PO SCH ×2 (09:06→21:59)
[2017-10-30] MEDS: FOLIC ACID 1 MG TAB PO SCH (09:06)
[2017-10-30] MEDS: SODIUM CHLORIDE 0.9% FLUSH 10 ML FLUSH IV FLUSH SCH ×2 (09:06→21:00)
[2017-10-30] MEDS: ASPIRIN EC 81 MG TABEC PO SCH (09:06)
[2017-10-30] MEDS: DOCUSATE SODIUM 50 MG/SENNA 8.6 MG TAB PO SCH ×2 (09:06→22:00)
[2017-10-30] MEDS: TAMSULOSIN HCL 0.4 MG CAP PO SCH (09:06)
--- NOTE | 2017-10-30 09:45 | PD.CARD.PN ---
Subjective Subjective Remarks No events overnight Patient still confused, known to have baseline dementia Objective Medications Current Medications Medications (Trade) Dose Ordered Sig/Juan Route Start Time Stop Time Status Last Admin Ceftriaxone Sodium 1000 mg/ Sodium Chloride 100 ml @ 200 mls/hr Q24H IV 10/28/17 23:00 10/30/17 00:40 (NS Flush) 2 ml UNSCH PRN IV FLUSH 10/27/17 23:15 (NS Flush) 2 ml BID IV FLUSH 10/28/17 09:00 10/30/17 09:06 (Zofran Inj) 4 mg Q6H PRN IVP 10/27/17 23:15 (Tylenol) 650 mg Q6H PRN PO 10/27/17 23:15 ([place] 5-325 Mg) 1 tab Q4H PRN PO 10/27/17 23:15 10/28/17 23:54 ([place] 10-325 Mg) 1 tab Q4H PRN PO 10/27/17 23:15 (Batsheva-Colace) 1 tab BID PO 10/28/17 09:00 10/30/17 09:06 (Milk Of Magnesia Liq) 30 ml Q12H PRN PO 10/27/17 23:15 (Senokot) 17.2 mg Q12H PRN PO 10/27/17 23:15 (Dulcolax Supp) 10 mg DAILY PRN RECTAL 10/27/17 23:15 (Lactulose Liq) 30 ml DAILY PRN PO 10/27/17 23:15 (Proscar) 5 mg DAILY PO 10/28/17 09:00 10/30/17 09:06 (Folate) 1 mg DAILY PO 10/28/17 09:00 10/30/17 09:06 (Levemir Inj) 15 units HS SQ 10/28/17 21:00 10/29/17 22:09 (Flomax) 0.4 mg DAILY PO 10/28/17 09:00 10/30/17 09:06 (Ecotrin Ec) 81 mg DAILY PO 10/28/17 09:00 10/30/17 09:06 (D50w (Vial) Inj) 50 ml UNSCH PRN IV PUSH 10/28/17 13:15 (Glucagon Inj) 1 mg UNSCH PRN OTHER 10/28/17 13:15 (NovoLOG SUPPLEMENTAL SCALE) 1 ACHS SLIDING SCALE SQ 10/28/17 17:00 10/29/17 17:00 (Catapres) 0.1 mg Q4H PRN PO 10/28/17 13:15 Piperacillin Sod/ Tazobactam Sod 50 ml @ 100 mls/hr Q6H IV 10/29/17 14:00 10/30/17 09:07 (Haldol) 0.5 mg BID PO 10/29/17 14:00 10/30/17 09:06 (Haldol Inj) 2 mg Q8H PRN IM 10/29/17 12:45 10/30/17 03:57 (risperDAL) 0.25 mg Q12HR PO 10/29/17 14:00 10/30/17 09:06 Vital Signs / I&O Vital Signs Date Time Temp Pulse Resp B/P (MAP) Pulse Ox O2 Delivery O2 Flow Rate FiO2 10/30/17 04:00 97.9 81 22 135/70 (91) 98 10/30/17 04:00 72 10/30/17 00:00 84 10/30/17 00:00 97.7 84 22 147/67 (93) 97 10/29/17 20:00 97.8 80 22 137/63 (87) 97 10/29/17 20:00 79 10/29/17 20:00 Room Air 10/29/17 15:42 97.9 69 18 124/66 (85) 100 10/29/17 15:41 65 10/29/17 14:28 62 10/29/17 13:13 73 10/29/17 12:30 72 10/29/17 11:52 97.8 80 18 137/67 (90) 96 10/29/17 11:52 80 10/29/17 10:21 95 I/O 10/29/17 10/29/17 10/29/17 10/30/17 10/30/17 10/30/17 07:00 15:00 23:00 07:00 15:00 23:00 Intake Total 480 ml 680 ml 240 ml Output Total 850 ml 900 ml 1000 ml Balance -370 ml -220 ml -760 ml Intake Oral 480 ml 680 ml 240 ml Output Urine Total 850 ml 900 ml 1000 ml # Bowel Movements 0 0 Physical Exam GENERAL: NAD, alert and awake SKIN: Warm and dry. HEAD: Atraumatic. Normocephalic. EYES: Pupils equal and round. No scleral icterus. No injection or drainage. ENT: No nasal bleeding or discharge. Mucous membranes pink and moist. NECK: Trachea midline. No JVD. CARDIOVASCULAR: Regular rate and rhythm. RESPIRATORY: No accessory muscle use. Clear to auscultation. Breath sounds equal bilaterally. GASTROINTESTINAL: Abdomen soft, non-tender, nondistended. Hepatic and splenic margins not palpable. MUSCULOSKELETAL: Extremities without clubbing, cyanosis, or edema. No obvious deformities. NEUROLOGICAL: Awake and alert. No obvious cranial nerve deficits. Motor grossly within normal limits. Five out of 5 muscle strength in the arms and legs. Normal speech. PSYCHIATRIC: Appropriate mood and affect; insight and judgment normal. Laboratory Laboratory Tests Test 10/30/17 07:36 White Blood Count 8.5 TH/MM3 Red Blood Count 2.75 MIL/MM3 Hemoglobin 8.1 GM/DL Hematocrit 24.1 % Mean Corpuscular Volume 87.7 FL Mean Corpuscular Hemoglobin 29.4 PG Mean Corpuscular Hemoglobin Concent 33.5 % Red Cell Distribution Width 13.8 % Platelet Count 186 TH/MM3 Mean Platelet Volume 8.4 FL Neutrophils (%) (Auto) 61.9 % Lymphocytes (%) (Auto) 23.1 % Monocytes (%) (Auto) 10.0 % Eosinophils (%) (Auto) 4.3 % Basophils (%) (Auto) 0.7 % Neutrophils # (Auto) 5.3 TH/MM3 Lymphocytes # (Auto) 2.0 TH/MM3 Monocytes # (Auto) 0.8 TH/MM3 Eosinophils # (Auto) 0.4 TH/MM3 Basophils # (Auto) 0.1 TH/MM3 CBC Comment DIFF FINAL Differential Comment Blood Urea Nitrogen 31 MG/DL Creatinine 1.78 MG/DL Random Glucose 108 MG/DL Total Protein 6.4 GM/DL Albumin 2.5 GM/DL Calcium Level 8.7 MG/DL Phosphorus Level 3.4 MG/DL Magnesium Level 2.2 MG/DL Alkaline Phosphatase 59 U/L Aspartate Amino Transf (AST/SGOT) 13 U/L Alanine Aminotransferase (ALT/SGPT) 12 U/L Total Bilirubin 0.3 MG/DL Sodium Level 145 MEQ/L Potassium Level 4.4 MEQ/L Chloride Level 114 MEQ/L Carbon Dioxide Level 22.3 MEQ/L Anion Gap 9 MEQ/L Estimat Glomerular Filtration Rate 38 ML/MIN Assessment and Plan Problem List: (1) Bacteremia ICD Codes: R78.81 - Bacteremia (2) Dementia ICD Codes: F03.90 - Unspecified dementia without behavioral disturbance (3) Elevated troponin ICD Codes: R74.8 - Abnormal levels of other serum enzymes (4) Altered mental status ICD Codes: R41.82 - Altered mental status, unspecified Status: Acute (5) Major depressive disorder, recurrent, moderate ICD Codes: F33.1 - Major depressive disorder, recurrent, moderate Status: Acute (6) DM (diabetes mellitus) ICD Codes: E11.9 - Type 2 diabetes mellitus without complications Assessment and Plan 1) Elevated trop Asymptomatic Due to baseline dementia, asymptomatic and DNR status, will plan on medical management 2) Sepsis with bacteremia Check 2D echo to evaluate valves Jason Low DO Oct 30, 2017 09:45
[2017-10-30] MEDS ORDERED: GENTAMICIN INJ 120 MG in SODIUM CHLORIDE 0.9% INJ 100 ML IV SCH (15:00)
[2017-10-30] MEDS ORDERED: Gentamicin Consult Pharmacy 1 EA OTHER SCH (15:00)
--- NOTE | 2017-10-30 15:02 | HHI.PR ---
Subjective Remarks This is a 72-year-old DNR male with a PMH of Anxiety, Depression, Dementia, HTN , Hyperlipidemia, COPD, DM and CHF (Unknown EF) who was sent to the ER from [facility] due to fever and AMS. Pt significantly lethargic on arrival, unable to provide any history. Per report, pt w/ significant Dementia and confusion at baseline, however noted to be more altered than normal. Temp 102.0 by EMS. On arrival here, BP 144/63, HR 102, O2 sat 93% on RA, Temp 103.0. WBC 19.9. Creatinine 2.98 previously 2.04 on 10/14/2017. Lactic Acid 2.8. Troponin 0 0.16. INR 1.0. UA positive for UTI. CXR with cardiomegaly. CT Abdomen/Pelvis with persistent but less prominent perinephric stranding. S/ p Blood Cultures, Vanc/Zosyn in ER. Mental status now improved, however remains confused. 4-8 SEEN BY CARDIOLOGY FEVERS CONTINUE ANTIBIOTICS DW RN AND PT AND CM START DM DIET AND ACCUCHECKS AM LABS 4-9 positive blood cultures continue zosyn and rocephin await sensitivities DW RN AND PT AND CM VERY CONFUSED TODAY WILL NEED HALDOL DW RN AND PT 4-10 MUCH MORE LETHARGIC TODAY BUT HAD HALDOL AND OTHER MEDICATIONS DUE TO AGITATION DW RN AND PT AND CM Objective Vitals Vital Signs Date Time Temp Pulse Resp B/P (MAP) Pulse Ox O2 Delivery O2 Flow Rate FiO2 10/30/17 12:20 97.9 69 22 124/60 (81) 98 10/30/17 08:04 97.6 67 22 137/67 (90) 96 10/30/17 08:04 96 Room Air 10/30/17 08:04 67 10/30/17 04:00 97.9 81 22 135/70 (91) 98 10/30/17 04:00 72 10/30/17 00:00 84 10/30/17 00:00 97.7 84 22 147/67 (93) 97 10/29/17 20:00 97.8 80 22 137/63 (87) 97 10/29/17 20:00 79 10/29/17 20:00 Room Air 10/29/17 15:42 97.9 69 18 124/66 (85) 100 10/29/17 15:41 65 I/O 10/29/17 10/29/17 10/29/17 10/30/17 10/30/17 10/30/17 07:00 15:00 23:00 07:00 15:00 23:00 Intake Total 480 ml 680 ml 240 ml Output Total 850 ml 900 ml 1000 ml Balance -370 ml -220 ml -760 ml Intake Oral 480 ml 680 ml 240 ml Output Urine Total 850 ml 900 ml 1000 ml # Bowel Movements 0 0 Result Diagram: 10/30/17 0736 10/30/17 0736 Other Results Laboratory Tests Test 10/27/17 20:30 10/27/17 20:40 10/28/17 00:10 10/28/17 04:40 Lactic Acid Level 2.8 mmol/L 1.0 mmol/L 0.7 mmol/L Ammonia 28 MCMOL/L White Blood Count 19.9 TH/MM3 15.8 TH/MM3 Red Blood Count 3.31 MIL/MM3 2.67 MIL/MM3 Hemoglobin 9.6 GM/DL 8.0 GM/DL Hematocrit 29.3 % 23.8 % Mean Corpuscular Volume 88.5 FL 89.3 FL Mean Corpuscular Hemoglobin 29.0 PG 30.0 PG Mean Corpuscular Hemoglobin Concent 32.7 % 33.5 % Red Cell Distribution Width 14.3 % 14.1 % Platelet Count 200 TH/MM3 167 TH/MM3 Mean Platelet Volume 8.7 FL 8.5 FL Neutrophils (%) (Auto) 90.1 % 82.1 % Lymphocytes (%) (Auto) 4.3 % 8.9 % Monocytes (%) (Auto) 5.3 % 8.6 % Eosinophils (%) (Auto) 0.0 % 0.0 % Basophils (%) (Auto) 0.3 % 0.4 % Neutrophils # (Auto) 17.9 TH/MM3 13.0 TH/MM3 Lymphocytes # (Auto) 0.8 TH/MM3 1.4 TH/MM3 Monocytes # (Auto) 1.1 TH/MM3 1.4 TH/MM3 Eosinophils # (Auto) 0.0 TH/MM3 0.0 TH/MM3 Basophils # (Auto) 0.1 TH/MM3 0.1 TH/MM3 CBC Comment DIFF FINAL DIFF FINAL Differential Comment Prothrombin Time 10.0 SEC Prothromb Time International Ratio 1.0 RATIO Activated Partial Thromboplast Time 31.0 SEC Urine Color RED Urine Turbidity CLOUDY Urine pH 6.0 Urine Specific Carr 1.017 Urine Protein 100 mg/dL Urine Glucose (UA) NEG mg/dL Urine Ketones 10 mg/dL Urine Occult Blood LARGE Urine Nitrite POS Urine Bilirubin NEG Urine Urobilinogen 2.0 MG/DL Urine Leukocyte Esterase LARGE Urine RBC /hpf Urine WBC 38 /hpf Urine Amorphous Sediment FEW Urine Bacteria FEW /hpf Urine Yeast with Hyphae RARE Urine Yeast (Budding) RARE Microscopic Urinalysis Comment CULTURE INDICATED Blood Urea Nitrogen 43 MG/DL 42 MG/DL Creatinine 2.98 MG/DL 2.66 MG/DL Random Glucose 184 MG/DL 178 MG/DL Total Protein 7.2 GM/DL 5.9 GM/DL Albumin 3.1 GM/DL 2.5 GM/DL Calcium Level 8.8 MG/DL 8.0 MG/DL Magnesium Level 2.0 MG/DL Alkaline Phosphatase 84 U/L 63 U/L Aspartate Amino Transf (AST/SGOT) 19 U/L 17 U/L Alanine Aminotransferase (ALT/SGPT) 12 U/L 11 U/L Total Bilirubin 0.7 MG/DL 0.5 MG/DL Sodium Level 134 MEQ/L 140 MEQ/L Potassium Level 5.6 MEQ/L 5.8 MEQ/L Chloride Level 104 MEQ/L 113 MEQ/L Carbon Dioxide Level 21.0 MEQ/L 20.1 MEQ/L Anion Gap 9 MEQ/L 7 MEQ/L Estimat Glomerular Filtration Rate 21 ML/MIN 24 ML/MIN Total Creatine Kinase 354 U/L Creatine Kinase MB 0.5 NG/ML Creatine Kinase MB % 0.1 % Troponin I 0.16 NG/ML 0.30 NG/ML Lipase 67 U/L Test 10/28/17 13:33 10/29/17 06:11 10/29/17 06:17 10/30/17 07:36 Troponin I 0.44 NG/ML White Blood Count 11.2 TH/MM3 8.5 TH/MM3 Red Blood Count 2.67 MIL/MM3 2.75 MIL/MM3 Hemoglobin 7.8 GM/DL 8.1 GM/DL Hematocrit 23.6 % 24.1 % Mean Corpuscular Volume 88.6 FL 87.7 FL Mean Corpuscular Hemoglobin 29.3 PG 29.4 PG Mean Corpuscular Hemoglobin Concent 33.1 % 33.5 % Red Cell Distribution Width 14.0 % 13.8 % Platelet Count 178 TH/MM3 186 TH/MM3 Mean Platelet Volume 8.6 FL 8.4 FL Neutrophils (%) (Auto) 65.7 % 61.9 % Lymphocytes (%) (Auto) 18.3 % 23.1 % Monocytes (%) (Auto) 11.8 % 10.0 % Eosinophils (%) (Auto) 3.6 % 4.3 % Basophils (%) (Auto) 0.6 % 0.7 % Neutrophils # (Auto) 7.3 TH/MM3 5.3 TH/MM3 Lymphocytes # (Auto) 2.0 TH/MM3 2.0 TH/MM3 Monocytes # (Auto) 1.3 TH/MM3 0.8 TH/MM3 Eosinophils # (Auto) 0.4 TH/MM3 0.4 TH/MM3 Basophils # (Auto) 0.1 TH/MM3 0.1 TH/MM3 CBC Comment DIFF FINAL DIFF FINAL Differential Comment Blood Urea Nitrogen 39 MG/DL 31 MG/DL Creatinine 2.04 MG/DL 1.78 MG/DL Random Glucose 115 MG/DL 108 MG/DL Total Protein 6.3 GM/DL 6.4 GM/DL Albumin 2.6 GM/DL 2.5 GM/DL Calcium Level 8.6 MG/DL 8.7 MG/DL Phosphorus Level 3.1 MG/DL 3.4 MG/DL Magnesium Level 2.4 MG/DL 2.2 MG/DL Alkaline Phosphatase 59 U/L 59 U/L Aspartate Amino Transf (AST/SGOT) 19 U/L 13 U/L Alanine Aminotransferase (ALT/SGPT) 13 U/L 12 U/L Total Bilirubin 0.4 MG/DL 0.3 MG/DL Sodium Level 143 MEQ/L 145 MEQ/L Potassium Level 4.1 MEQ/L 4.4 MEQ/L Chloride Level 112 MEQ/L 114 MEQ/L Carbon Dioxide Level 22.4 MEQ/L 22.3 MEQ/L Anion Gap 9 MEQ/L 9 MEQ/L Estimat Glomerular Filtration Rate 32 ML/MIN 38 ML/MIN Hemoglobin A1c 6.6 % Free Thyroxine 0.86 NG/DL Thyroid Stimulating Hormone 3rd Gen 1.070 uIU/ML Imaging Last Impressions Chest X-Ray 10/27/172033 Signed Impressions: Service Date/Time: Friday, October 27, 2017 20:59 - CONCLUSION: Cardiomegaly. Jas Murphy MD Abdomen/Pelvis CT 10/27/17 0000 Signed Impressions: Service Date/Time: Friday, October 27, 2017 22:25 - CONCLUSION: 1. Persistent but less prominent perinephric stranding. 2. Colonic diverticula. Jas Murphy MD Objective Remarks GENERAL: Awake and alert and oriented times person talkative and BUT NOT cooperative SKIN: Warm and dry. HEAD: Atraumatic. Normocephalic. EYES: Pupils equal and round. No scleral icterus. No injection or drainage. Extraocular muscles intact ENT: No nasal bleeding or discharge. Mucous membranes pink and moist. Tongue is midline NECK: Trachea midline. No JVD. Supple CARDIOVASCULAR: Regular rate and rhythm. S1-S2 no S3 or S4 RESPIRATORY: No accessory muscle use. Clear to auscultation. Breath sounds equal bilaterally. GASTROINTESTINAL: Abdomen soft, non-tender, nondistended. Hepatic and splenic margins not palpable. MUSCULOSKELETAL: Extremities without clubbing, cyanosis, or edema. No obvious deformities. NEUROLOGICAL: Awake and alert. No obvious cranial nerve deficits. Motor grossly within normal limits. 4 out of 5 muscle strength in the arms and legs. ABNormal speech. PSYCHIATRIC: INAppropriate mood and affect; insight and judgment ABnormal. Procedures NONE Medications and IVs Current Medications Sodium Chloride (NS Flush) 2 ml UNSCH PRN IVF FLUSH AFTER USING IV ACCESS; Start 10/27/17 at 20:45; Stop 10/27/17 at 23:21; Status DC Acetaminophen (Tylenol Supp) 650 mg ONCE ONCE RECTAL Last administered on at 20:59; Start 10/27/17 at 20:45; Stop 10/27/17 at 20:46; Status DC Piperacillin Sod/ Tazobactam Sod 100 ml @ 200 mls/hr ONCE STAT IV Last administered on 10/27/17at 20:59; Start 10/27/17 at 20:34; Stop 10/27/17 at 21:03; Status DC Sodium Chloride 1,000 ml @ 1,000 mls/hr Q1H ONCE IV Last administered on at 20:59; Start 10/27/17 at 20:34; Stop 10/27/17 at 20:56; Status DC Sodium Chloride 1,000 ml @ 1,000 mls/hr Q1H ONCE IV ; Start 10/27/17 at 20:34; Stop 10/27/17 at 20:56; Status DC Sodium Chloride 1,000 ml @ 1,000 mls/hr Q1H ONCE IV ; Start 10/27/17 at 20:34; Stop 10/27/17 at 20:56; Status DC Vancomycin HCl 1750 mg/Sodium Chloride 517.5 ml @ 258.75 mls/ hr ONCE ONCE IV Last administered on 10/27/17at 21:53; Start 10/27/17 at 20:45; Stop 10/27/17 at 22:44; Status DC Sodium Chloride 1,000 ml @ 999 mls/hr BOLUS ONCE IV Last administered on at 21:59; Start 10/27/17 at 21:00; Stop 10/27/17 at 22:00; Status DC Aspirin (Aspirin Chew) 162 mg DAILY CHEW ; Start 10/28/17 at 09:00; Stop 10/28/17 at 09:00; Status DC Ceftriaxone Sodium 1000 mg/ Sodium Chloride 100 ml @ 200 mls/hr Q24H IV Last administered on 10/30/17at 00:40; Start 10/28/17 at 23:00 Sodium Chloride 1,000 ml @ 100 mls/hr Q10H IV Last administered on 10/28/17at 01 :21; Start 10/27/17 at 23:12; Stop 10/28/17 at 19:09; Status DC Sodium Chloride (NS Flush) 2 ml UNSCH PRN IV FLUSH FLUSH AFTER USING IV ACCESS ; Start 10/27/17 at 23:15 Sodium Chloride (NS Flush) 2 ml BID IV FLUSH Last administered on 10/30/17at 09: 06; Start 10/28/17 at 09:00 Ondansetron HCl (Zofran Inj) 4 mg Q6H PRN IVP NAUSEA OR VOMITING; Start at 23:15 Acetaminophen (Tylenol) 650 mg Q6H PRN PO FEVER/PAIN SCALE 1 TO 2; Start at 23:15 Acetaminophen/ Hydrocodone Bitart ([place] 5-325 Mg) 1 tab Q4H PRN PO PAIN SCALE 3 TO 5 Last administered on 10/28/17at 23:54; Start 10/27/17 at 23:15 Acetaminophen/ Hydrocodone Bitart ([place] 10-325 Mg) 1 tab Q4H PRN PO PAIN SCALE 6 TO 10; Start 10/27/17 at 23:15 Senna/Docusate Sodium (Batsheva-Colace) 1 tab BID PO Last administered on at 09:06; Start 10/28/17 at 09:00 Magnesium Hydroxide (Milk Of Magnesia Liq) 30 ml Q12H PRN PO Mild constipation ; Start 10/27/17 at 23:15 Sennosides (Senokot) 17.2 mg Q12H PRN PO Moderate constipation; Start 10/27/17 at 23:15 Bisacodyl (Dulcolax Supp) 10 mg DAILY PRN RECTAL SEVERE CONSITIPATION; Start at 23:15 Lactulose (Lactulose Liq) 30 ml DAILY PRN PO SEVERE CONSITIPATION; Start at 23:15 Finasteride (Proscar) 5 mg DAILY PO Last administered on 10/30/17at 09:06; Start 10/28/17 at 09:00 Folic Acid (Folate) 1 mg DAILY PO Last administered on 10/30/17at 09:06; Start 10/28/17 at 09:00 Insulin Detemir (Levemir Inj) 15 units HS SQ Last administered on 10/29/17at 22: 09; Start 10/28/17 at 21:00 Tamsulosin HCl (Flomax) 0.4 mg DAILY PO Last administered on 10/30/17at 09:06; Start 10/28/17 at 09:00 Aspirin (Ecotrin Ec) 81 mg DAILY PO Last administered on 10/30/17at 09:06; Start 10/28/17 at 09:00 Dextrose (D50w (Vial) Inj) 50 ml UNSCH PRN IV PUSH HYPOGLYCEMIA-SEE COMMENTS; Start 10/28/17 at 13:15 Glucagon (Glucagon Inj) 1 mg UNSCH PRN OTHER HYPOGLYCEMIA-SEE COMMENTS; Start 10/28/17 at 13:15 Insulin Aspart (NovoLOG SUPPLEMENTAL SCALE) 1 ACHS SLIDING SCALE SQ Last administered on 10/30/17at 12:00; Start 10/28/17 at 17:00 Clonidine (Catapres) 0.1 mg Q4H PRN PO SBP>160, DBP>90; Start 10/28/17 at 13:15 Piperacillin Sod/ Tazobactam Sod 50 ml @ 100 mls/hr Q6H IV Last administered on 10/30/17at 09:07; Start 10/29/17 at 14:00; Stop 10/30/17 at 13:18; Status DC Haloperidol (Haldol) 0.5 mg BID PO Last administered on 10/30/17at 09:06; Start 10/29/17 at 14:00 Haloperidol Lactate (Haldol Inj) 2 mg Q8H PRN IM SEVERE ANXIETY/CONFUSION Last administered on 10/30/17at 03:57; Start 10/29/17 at 12:45 Risperidone (risperDAL) 0.25 mg Q12HR PO Last administered on 10/30/17at 09:06; Start 10/29/17 at 14:00 Piperacillin Sod/ Tazobactam Sod 2.25 gm/Sodium Chloride 50 ml @ 100 mls/hr Q6H IV ; Start 10/30/17 at 16:00 A/P Problem List: (1) Encephalopathy ICD Code: G93.40 - Encephalopathy, unspecified (2) Sepsis ICD Code: A41.9 - Sepsis, unspecified organism Status: Acute (3) UTI (urinary tract infection) ICD Code: N39.0 - Urinary tract infection, site not specified (4) Elevated troponin ICD Code: R74.8 - Abnormal levels of other serum enzymes Status: Acute (5) DM (diabetes mellitus) ICD Code: E11.9 - Type 2 diabetes mellitus without complications (6) DNR (do not resuscitate) ICD Code: Z66 - Do not resuscitate Assessment and Plan 1. Sepsis: Temp 103.0, HR 102, WBC 19, Lactic Acid 2.8, Source-UTI. S/p Vanc/ Zosyn, Blood Cultures in ER, will continue w/ IV Abx, follow up cultures. ON ROCEPHIN AND ZOSYN ADD GENT- MDR UTI -CONSULT ID 2. Encephalopathy: Likely secondary to underlying dementia compounded by UTI/ Sepsis. Neuro checks. Mental status currently improved, appears to be back to baseline per 3. UTI: U/a w/ UTI, follow up cultures, continue IV Abx. -ROCEPHIN AND ZOSYN ADD GENT- CONSULT ID=MDR UTI 4. Elevated Trop: Trop 0.16, no c/o chest pain. EKG w/ new RBBB. Likely secondary to Sepsis w/ demand ischemia however r/o ACS. Check serial cardiac enzymes, ASA, Statin, hold Metoprolol in light of sepsis. Consult Cardiology for further eval. Pt poor candidate for aggressive intervention secondary to severe dementia. 5. DM: Sliding scale w/ Accu-Cheks. Hold Insulin until taking adequate PO and sepsis resolved. 6. DNR: Code Status reviewed, DNR in chart, order placed. 7. DVT Prophylaxis: SCD/Teds. HALDOL PRN TODAY AM LABS PT AND OT Discharge Planning PENDING IMPROVEMENT OF UTI AND SEPSIS Problem Qualifiers (1) Sepsis: Qualified Codes: A41.9 - Sepsis, unspecified organism Chavo Phelps DO Oct 30, 2017 15:02
[2017-10-30] MEDS ORDERED: PHARMACY ORDERED LAB ONE (17:00)
[2017-10-30] MEDS: PIPERACILLIN/TAZ 2.25 GM VIAL 2.25 GM in SODIUM CHLORIDE 0.9% INJ 50 ML IV SCH ×2 (17:53→22:00)
[2017-10-30] MEDS: GENTAMICIN INJ 120 MG in SODIUM CHLORIDE 0.9% INJ 100 ML IV SCH (18:25)
--- NOTE | 2017-10-30 19:31 | MB ---
cc: Martin Hewitt MD DATE: 10/30/2017 REQUESTING PHYSICIAN: Chavo Phelps DO REASON: Multidrug resistant UTI with multiple organisms. HISTORY OF PRESENT ILLNESS: This is a 72-year-old white male who is a resident of a custodial facility. The patient was brought to the emergency department with altered mental status. His notes that at the custodial, he was removing his clothes inappropriately and appeared to be hot. He also was noted to have tere-colored urine. He has a chronic indwelling Mendoza catheter. In the emergency department, his temperature was 103. Lactic acid level was 2.8 and white blood cell count was elevated at 19.9, and he had abnormal urinalysis with 38 white cells. Urine culture was obtained and also blood cultures were obtained. The urine culture came back with multidrug-resistant Pseudomonas aeruginosa. Blood cultures have Pseudomonas aeruginosa in both sets and one of the sets also has Enterococcus faecalis. The patient was recently evaluated at the emergency department on 10/14 and had Enterococcus faecalis in the urine. He was treated with ciprofloxacin. He has been on IV antibiotics, initially with ceftriaxone, and he received vancomycin and piperacillin dose when he was admitted by the emergency department. The ceftriaxone was switched to piperacillin/tazobactam and also gentamicin was ordered today. The patient is more awake and alert. He is currently feeding himself from a bowl of soup. He is awake and alert, and he is oriented to person and place, but not to time. When asked certain questions, he does not answer appropriately, but gives sarcastic answers. He denies chills. He has been afebrile after admission. The patient's notes that he had chills on the day of admission. The patient himself states that he does not recall the events around the time when he was brought to the emergency department. PAST MEDICAL HISTORY: Hypertension, hyperlipidemia, diabetes mellitus, congestive heart failure, COPD, dementia, anxiety, depression, history of multiple urinary tract infections. ALLERGIES: NO KNOWN DRUG ALLERGIES. MEDICATIONS: Gentamicin IV, piperacillin/tazobactam, Haldol, Risperdal, ceftriaxone, insulin, Batsheva-Colace, Proscar, folic acid, aspirin, Flomax, [place] 5 p.r.n. SOCIAL HISTORY: The patient is . No tobacco. No alcohol. No illicit drugs. FAMILY HISTORY: Noncontributory. REVIEW OF SYSTEMS: Negative on 10-point review. PHYSICAL EXAMINATION: GENERAL: This is a well-developed male who is in no acute distress. He is awake and alert. VITAL SIGNS: Include temperature 97.9, BP is 132/63, heart rate 63, respirations 18. HEENT: Head is atraumatic. Extraocular movements grossly intact. Pupils reactive to light, without icterus. Oropharynx, moist mucosa without lesions. NECK: Supple without adenopathy. LUNGS: Clear breath sounds, bilateral. HEART: Regular S1 and S2. No murmurs, rubs or gallops. ABDOMEN: Bowel sounds present, soft, no tenderness appreciated. RECTAL: Not performed. GENITOURINARY: The patient has a Mendoza catheter, which has clear light yellow urine. EXTREMITIES: No clubbing, cyanosis or edema. SKIN: No rash. NEUROLOGIC: No gross focal finding. PSYCHIATRIC: The patient is calm and cooperative. LABORATORY DATA: WBC 8.5, platelet 186, hemoglobin 8.1, 61% neutrophils, 23% lymphocytes. Creatinine 1.78, BUN 31, estimated GFR 38, sodium 145. Liver function tests normal. IMPRESSION: 1. Sepsis due to Pseudomonas secondary to urinary infection. 2. Bacteremia due to Enterococcus. The patient also had recent bout of urinary tract infection due to Enterococcus. 3. Urinary tract infection due to Pseudomonas. Multidrug resistance. 4. Acute kidney disease. The patient has chronic indwelling Mendoza catheter, which predisposes him to recurrent urinary tract infection. RECOMMENDATIONS: 1. Continue piperacillin/tazobactam. 2. Follow the blood culture and sensitivity of Pseudomonas. 3. Repeat the blood cultures. 4. Monitor renal function and if any deterioration, will need to stop the gentamicin. 5. Continue to follow the clinical status. The patient clinically appears stable and therefore may be responding to current antibiotic treatment. The Mendoza catheter was changed on admission and that may have helped also as far as eradicating the urine bacteria, but we will have to repeat urine culture to check for clearance. Thank you for this consultation. MD MARBIN Amor/KIMBERLEY , 06:55 PM , 07:29 PM
[2017-10-30] MEDS: INSULIN DETEMIR 100 UNITS/ML VIAL SQ SCH (22:00)
[2017-10-31] VITALS (10 sets, daily range): BP systolic 157–180; BP diastolic 68–80; PULSE 65–94; RESP 17–20; TEMP 97.3–98.4; O2SAT 95–99
[2017-10-31] MEDS: PIPERACILLIN/TAZ 2.25 GM VIAL 2.25 GM in SODIUM CHLORIDE 0.9% INJ 50 ML IV SCH ×4 (03:02→21:38)
[2017-10-31 07:01] LABS: BASOPHIL # 0.1 TH/MM3 (0-0.2); BASOPHIL % 0.8 % (0.0-2.0); EOSINOPHIL # 0.3 TH/MM3 (0-0.4); EOSINOPHIL % 4.3 % (0.0-4.0); HEMATOCRIT 21.9 % (39.0-51.0); HEMOGLOBIN 7.5 GM/DL (13.0-17.0); LYMPH % 26.4 % (9.0-44.0); LYMPHOCYTE # 1.8 TH/MM3 (1.0-4.8); MEAN CELL VOLUME 86.9 FL (80.0-100.0); MEAN CORPUSCULAR HEMOGLOBIN 29.7 PG (27.0-34.0); MEAN CORPUSCULAR HGB CONC 34.2 % (32.0-36.0); MEAN PLATELET VOLUME 8.5 FL (7.0-11.0); MONO % 10.5 % (0.0-8.0); MONOCYTE # 0.7 TH/MM3 (0-0.9); PLATELET COUNT 207 TH/MM3 (150-450); RED BLOOD COUNT 2.52 MIL/MM3 (4.50-5.90); RED CELL DISTRIBUTION WIDTH 14.2 % (11.6-17.2); WHITE BLOOD COUNT 6.9 TH/MM3 (4.0-11.0)
[2017-10-31 07:26] LABS: ALBUMIN 2.5 GM/DL (3.4-5.0); ALT (GPT) 11 U/L (12-78); AST (GOT) 12 U/L (15-37); BICARBONATE 22.2 MEQ/L (21.0-32.0); BLOOD UREA NITROGEN 25 MG/DL (7-18); CALCIUM 8.5 MG/DL (8.5-10.1); CHLORIDE 114 MEQ/L (98-107); CREATININE 1.65 MG/DL (0.60-1.30); GLOMERULAR FILTRATION RATE 41 ML/MIN (>89); GLUCOSE,RANDOM 128 MG/DL (74-106); MAGNESIUM 2.1 MG/DL (1.5-2.5); SODIUM (NA) 145 MEQ/L (136-145)
[2017-10-31 07:29] LABS: ALKALINE PHOSPHATASE 60 U/L (45-117); PHOSPHORUS 3.1 MG/DL (2.5-4.9); TOTAL BILIRUBIN ADULT 0.3 MG/DL (0.2-1.0)
[2017-10-31] MEDS: INSULIN ASPART SUPPLEMENTAL SCALE SQ SCH ×4 (07:52→21:57)
--- NOTE | 2017-10-31 08:35 | ECHRPT ---
Indication: Bacteremia, Elevated Troponin CONCLUSIONS The left ventricular systolic function is normal with an estimated ejection fraction in the range of 50-55%. Wall thickness is measured at the upper limits of normal. No regional wall motion abnormalities are present. Mild mitral valve regurgitation. Trileaflet aortic valve. Mild calcification of the non-coronary cusp. There is trace tricuspid valve regurgitation. The estimated pulmonary arterial pressure is 28 mmHg. BP: 135 / 70 HR: 81 Rhythm: Sinus MEASUREMENTS (Male / Female) Normal Values Technical Quality:Fair 2D ECHO LV Diastolic Diameter PLAX 4.4 cm 4.2 - 5.9 / 3.9 - 5.3 cm LV Systolic Diameter PLAX 3.1 cm IVS Diastolic Thickness 1.3 cm 0.6 - 1.0 / 0.6 - 0.9 cm LVPW Diastolic Thickness 1.3 cm 0.6 - 1.0 / 0.6 - 0.9 cm LV Relative Wall Thickness 0.6 RV Internal Dim ED PLAX 3.0 cm LVOT Diameter 2.0 cm LA Systolic Diameter LX 3.8 cm 3.0 - 4.0 / 2.7 - 3.8 cm M-MODE Aortic Root Diameter MM 3.0 cm LA Systolic Diameter MM 4.1 cm LA Ao Ratio MM 1.4 AV Cusp Separation MM 2.2 cm DOPPLER AV Peak Velocity 145.0 cm/s AV Peak Gradient 8.4 mmHg LVOT Peak Velocity 111.0 cm/s LVOT Peak Gradient 4.9 mmHg AV Area Cont Eq pk 2.4 cm MV Area PHT 3.7 cm Mitral E Point Velocity 99.9 cm/s Mitral A Point Velocity 65.2 cm/s Mitral E to A Ratio 1.5 LV E' Lateral Velocity 7.2 cm/s Mitral E to LV E' Lateral Ratio 13.8 LV E' Septal Velocity 6.4 cm/s Mitral E to LV E' Septal Ratio 15.7 TR Peak Velocity 215.0 cm/s TR Peak Gradient 18.5 mmHg Right Atrial Pressure 10.0 mmHg Pulmonary Artery Systolic Pressu 28.5 mmHg Right Ventricular Systolic Press 28.5 mmHg FINDINGS LEFT VENTRICLE The left ventricular systolic function is normal with an estimated ejection fraction in the range of 50-55%. Wall thickness is measured at the upper limits of normal. No regional wall motion abnormalities are present. RIGHT VENTRICLE Normal right ventricular size and systolic function. LEFT ATRIUM The left atrial size is normal. RIGHT ATRIUM The right atrial size is normal. ATRIAL SEPTUM Normal atrial septal thickness without atrial level shunting by limited color doppler interrogation. AORTA The aortic root and proximal ascending aorta are normal in size on limited imaging. MITRAL VALVE Mild mitral valve regurgitation. AORTIC VALVE Trileaflet aortic valve. Mild calcification of the non-coronary cusp. TRICUSPID VALVE Structurally normal tricuspid valve. There is trace tricuspid valve regurgitation. The estimated pulmonary arterial pressure is 28 mmHg. PULMONARY VALVE No pulmonary valve regurgitation or stenosis. VESSELS The inferior vena cava is normal in size. PERICARDIUM No pericardial effusion. Elias Rivero MD (Electronically Signed) Final Date:31 October 2017 08:34
[2017-10-31] MEDS: TAMSULOSIN HCL 0.4 MG CAP PO SCH (08:44)
[2017-10-31] MEDS: HALOPERIDOL 0.5 MG TAB PO SCH ×2 (08:44→20:18)
[2017-10-31] MEDS: FINASTERIDE 5 MG TAB PO SCH (08:44)
[2017-10-31] MEDS: ASPIRIN EC 81 MG TABEC PO SCH (08:45)
[2017-10-31] MEDS: FOLIC ACID 1 MG TAB PO SCH (08:45)
[2017-10-31] MEDS: DOCUSATE SODIUM 50 MG/SENNA 8.6 MG TAB PO SCH ×2 (08:45→20:18)
[2017-10-31] MEDS: SODIUM CHLORIDE 0.9% FLUSH 10 ML FLUSH IV FLUSH SCH ×2 (08:45→20:19)
[2017-10-31] MEDS: risperiDONE 0.25 MG TAB PO SCH ×2 (08:45→20:18)
[2017-10-31] MEDS ORDERED: SODIUM CHLOR 0.9% 250 ML INJ 250 ML IV ONE (09:00)
--- NOTE | 2017-10-31 12:10 | HHI.PR ---
Subjective Remarks Mentation improving. No distress. Cooperating with PT. Objective Vital Signs Date Time Temp Pulse Resp B/P (MAP) Pulse Ox O2 Delivery O2 Flow Rate FiO2 10/31/17 08:00 Room Air 10/31/17 04:00 98.4 74 18 159/72 (101) 95 10/31/17 04:00 69 10/31/17 00:00 78 17 10/31/17 00:00 78 10/30/17 22:00 Room Air 10/30/17 20:10 87 10/30/17 20:00 97.8 85 19 145/69 (94) 96 10/30/17 16:24 97.9 67 20 132/63 (86) 98 10/30/17 15:24 63 10/30/17 15:22 97.9 71 22 120/62 (81) 98 10/30/17 12:20 97.9 69 22 124/60 (81) 98 I/O 10/30/17 10/30/17 10/30/17 10/31/17 10/31/17 10/31/17 07:00 15:00 23:00 07:00 15:00 23:00 Intake Total 240 ml 530 ml 390 ml Output Total 1000 ml 800 ml 650 ml Balance -760 ml -270 ml -260 ml Intake Oral 240 ml 480 ml 340 ml IV Total 50 ml 50 ml Output Urine Total 1000 ml 800 ml 650 ml # Bowel Movements 0 1 Result Diagram: 10/31/1762410/31/17 0625 Objective Remarks GENERAL: NAD, A&Ox2 SKIN: Warm and dry. HEAD: Normocephalic. EYES: No scleral icterus. No injection or drainage. NECK: Supple, trachea midline. No JVD or lymphadenopathy. CARDIOVASCULAR: Regular rate and rhythm without murmurs, gallops, or rubs. RESPIRATORY: Breath sounds equal bilaterally. No accessory muscle use. GASTROINTESTINAL: Abdomen soft, non-tender, nondistended. MUSCULOSKELETAL: No cyanosis, or edema. BACK: Nontender without obvious deformity. No CVA tenderness. A/P Problem List: (1) Major depressive disorder, recurrent, moderate ICD Code: F33.1 - Major depressive disorder, recurrent, moderate Status: Acute (2) Altered mental status ICD Code: R41.82 - Altered mental status, unspecified Status: Acute (3) Dementia ICD Code: F03.90 - Unspecified dementia without behavioral disturbance (4) Sepsis ICD Code: A41.9 - Sepsis, unspecified organism Status: Acute (5) Urinary retention ICD Code: R33.9 - Retention of urine, unspecified (6) Urinary tract infection ICD Code: N39.0 - Urinary tract infection, site not specified Assessment and Plan 72 year old male admitted with encephalopathy in setting of Sepsis from UTI. Urinary retention present at admit. Sepsis UTI Rocephin Gentamicin Zosyn ID Following Follow cultures Improving on treatment Metabolic Encephalopathy secondary to UTI/Sepsis Treat as above Follow clinically Supportive Care Improving Troponin elevation Reactive vs. Mild Ischemic event No aggressive intervention Cardiology following DM2 Insulin Sliding Scale Follow blood sugars Diabetic Diet DVT Prophylaxis SCDs Problem Qualifiers (1) Sepsis: Qualified Codes: A41.9 - Sepsis, unspecified organism (2) Urinary tract infection: Qualified Codes: T83.511A - Infection and inflammatory reaction due to indwelling urethral catheter, initial encounter; N39.0 - Urinary tract infection , site not specified Elliott Streeter MD Oct 31, 2017 12:10
--- NOTE | 2017-10-31 12:23 | HHI.IDPN ---
Note Infectious Disease Note Patient is very alert. However he appears slightly confused. Denies chills. Afebrile. Denies nausea vomiting. Repeat blood culture pending. Repeat urine culture pending. Brought to the emergency department from nursing facility with altered mental status. PAST MEDICAL HISTORY: Hypertension, hyperlipidemia, diabetes mellitus, congestive heart failure, COPD, dementia, anxiety, depression, history of multiple urinary tract infections. ALLERGIES: NO KNOWN DRUG ALLERGIES. MEDICATIONS: Current Medications Medications (Trade) Dose Ordered Sig/Juan Route PRN Reason Start Time Stop Time Status Last Admin Dose Admin Sodium Chloride (NS Flush) 2 ml UNSCH PRN IV FLUSH FLUSH AFTER USING IV ACCESS 10/27/17 23:15 Sodium Chloride (NS Flush) 2 ml BID IV FLUSH 10/28/17 09:00 10/31/17 08:45 Ondansetron HCl (Zofran Inj) 4 mg Q6H PRN IVP NAUSEA OR VOMITING 10/27/17 23:15 Acetaminophen (Tylenol) 650 mg Q6H PRN PO FEVER/PAIN SCALE 1 TO 2 10/27/17 23:15 Acetaminophen/ Hydrocodone Bitart ([place] 5-325 Mg) 1 tab Q4H PRN PO PAIN SCALE 3 TO 5 10/27/17 23:15 10/28/17 23:54 Acetaminophen/ Hydrocodone Bitart ([place] 10-325 Mg) 1 tab Q4H PRN PO PAIN SCALE 6 TO 10 10/27/17 23:15 Senna/Docusate Sodium (Batsheva-Colace) 1 tab BID PO 10/28/17 09:00 10/31/17 08:45 Magnesium Hydroxide (Milk Of Magnesia Liq) 30 ml Q12H PRN PO Mild constipation 10/27/17 23:15 Sennosides (Senokot) 17.2 mg Q12H PRN PO Moderate constipation 10/27/17 23:15 Bisacodyl (Dulcolax Supp) 10 mg DAILY PRN RECTAL SEVERE CONSITIPATION 10/27/17 23:15 Lactulose (Lactulose Liq) 30 ml DAILY PRN PO SEVERE CONSITIPATION 10/27/17 23:15 Finasteride (Proscar) 5 mg DAILY PO 10/28/17 09:00 10/31/17 08:44 Folic Acid (Folate) 1 mg DAILY PO 10/28/17 09:00 10/31/17 08:45 Insulin Detemir (Levemir Inj) 15 units HS SQ 10/28/17 21:00 10/30/17 22:00 Tamsulosin HCl (Flomax) 0.4 mg DAILY PO 10/28/17 09:00 10/31/17 08:44 Aspirin (Ecotrin Ec) 81 mg DAILY PO 10/28/17 09:00 10/31/17 08:45 Dextrose (D50w (Vial) Inj) 50 ml UNSCH PRN IV PUSH HYPOGLYCEMIA-SEE COMMENTS 10/28/17 13:15 Glucagon (Glucagon Inj) 1 mg UNSCH PRN OTHER HYPOGLYCEMIA-SEE COMMENTS 10/28/17 13:15 Insulin Aspart (NovoLOG SUPPLEMENTAL SCALE) 1 ACHS SLIDING SCALE SQ 10/28/17 17:00 10/30/17 22:00 Clonidine (Catapres) 0.1 mg Q4H PRN PO SBP>160, DBP>90 10/28/17 13:15 Haloperidol (Haldol) 0.5 mg BID PO 10/29/17 14:00 10/31/17 08:44 Haloperidol Lactate (Haldol Inj) 2 mg Q8H PRN IM SEVERE ANXIETY/CONFUSION 10/29/17 12:45 10/30/17 03:57 Risperidone (risperDAL) 0.25 mg Q12HR PO 10/29/17 14:00 10/31/17 08:45 Piperacillin Sod/ Tazobactam Sod 2.25 gm/Sodium Chloride 50 ml @ 100 mls/hr Q6H IV 10/30/17 16:00 10/31/17 08:45 Pharmacy Profile Note 0 ml @ 0 mls/hr UNSCH OTHER 10/30/17 15:00 Gentamicin Sulfate 120 mg/ Sodium Chloride 103 ml @ 100 mls/hr Q24H IV 10/30/17 16:00 10/30/17 18:25 Miscellaneous Information SPECIFIC LAB TO BE EDEL... ONCE ONCE .XX 11/01/17 15:30 11/01/17 15:31 Sodium Chloride 250 ml @ 15 mls/hr ONCE ONCE IV 10/31/17 09:00 11/01/17 01:39 10/31/17 10:30 Miscellaneous Information SPECIFIC LAB TO BE DRAWN:GENTAMY... ONCE ONCE .XX 11/01/17 17:30 11/01/17 17:31 Objective: Vital Signs Date Time Temp Pulse Resp B/P (MAP) Pulse Ox O2 Delivery O2 Flow Rate FiO2 10/31/17 08:00 Room Air 10/31/17 04:00 98.4 74 18 159/72 (101) 95 10/31/17 04:00 69 10/31/17 00:00 78 17 10/31/17 00:00 78 10/30/17 22:00 Room Air 10/30/17 20:10 87 10/30/17 20:00 97.8 85 19 145/69 (94) 96 10/30/17 16:24 97.9 67 20 132/63 (86) 98 10/30/17 15:24 63 10/30/17 15:22 97.9 71 22 120/62 (81) 98 Laboratory Tests Test 10/30/17 07:36 10/31/17 06:25 White Blood Count 8.5 TH/MM3 6.9 TH/MM3 Red Blood Count 2.75 MIL/MM3 2.52 MIL/MM3 Hemoglobin 8.1 GM/DL 7.5 GM/DL Hematocrit 24.1 % 21.9 % Mean Corpuscular Volume 87.7 FL 86.9 FL Mean Corpuscular Hemoglobin 29.4 PG 29.7 PG Mean Corpuscular Hemoglobin Concent 33.5 % 34.2 % Red Cell Distribution Width 13.8 % 14.2 % Platelet Count 186 TH/MM3 207 TH/MM3 Mean Platelet Volume 8.4 FL 8.5 FL Neutrophils (%) (Auto) 61.9 % 58.0 % Lymphocytes (%) (Auto) 23.1 % 26.4 % Monocytes (%) (Auto) 10.0 % 10.5 % Eosinophils (%) (Auto) 4.3 % 4.3 % Basophils (%) (Auto) 0.7 % 0.8 % Neutrophils # (Auto) 5.3 TH/MM3 4.0 TH/MM3 Lymphocytes # (Auto) 2.0 TH/MM3 1.8 TH/MM3 Monocytes # (Auto) 0.8 TH/MM3 0.7 TH/MM3 Eosinophils # (Auto) 0.4 TH/MM3 0.3 TH/MM3 Basophils # (Auto) 0.1 TH/MM3 0.1 TH/MM3 CBC Comment DIFF FINAL DIFF FINAL Differential Comment Laboratory Tests Test 10/30/17 07:36 10/31/17 06:25 Blood Urea Nitrogen 31 MG/DL 25 MG/DL Creatinine 1.78 MG/DL 1.65 MG/DL Random Glucose 108 MG/DL 128 MG/DL Total Protein 6.4 GM/DL 6.0 GM/DL Albumin 2.5 GM/DL 2.5 GM/DL Calcium Level 8.7 MG/DL 8.5 MG/DL Phosphorus Level 3.4 MG/DL 3.1 MG/DL Magnesium Level 2.2 MG/DL 2.1 MG/DL Alkaline Phosphatase 59 U/L 60 U/L Aspartate Amino Transf (AST/SGOT) 13 U/L 12 U/L Alanine Aminotransferase (ALT/SGPT) 12 U/L 11 U/L Total Bilirubin 0.3 MG/DL 0.3 MG/DL Sodium Level 145 MEQ/L 145 MEQ/L Potassium Level 4.4 MEQ/L 3.9 MEQ/L Chloride Level 114 MEQ/L 114 MEQ/L Carbon Dioxide Level 22.3 MEQ/L 22.2 MEQ/L Anion Gap 9 MEQ/L 9 MEQ/L Estimat Glomerular Filtration Rate 38 ML/MIN 41 ML/MIN Microbiology Date/Time Source Procedure Growth Status 10/30/17 21:25 Blood Peripheral Aerobic Blood Culture - Preliminary NO GROWTH IN 1 DAY Resulted 10/30/17 21:25 Blood Peripheral Anaerobic Blood Culture - Preliminary NO GROWTH IN 1 DAY Resulted 10/30/17 21:20 Blood Peripheral Aerobic Blood Culture - Preliminary NO GROWTH IN 1 DAY Resulted 10/30/17 21:20 Blood Peripheral Anaerobic Blood Culture - Preliminary NO GROWTH IN 1 DAY Resulted 10/31/17 07:00 Urine Catheterized Urine Urine Culture Pending Received Last Impressions Chest X-Ray 10/27/172033 Signed Impressions: Service Date/Time: Friday, October 27, 2017 20:59 - CONCLUSION: Cardiomegaly. Jas Murphy MD Abdomen/Pelvis CT 10/27/17 0000 Signed Impressions: Service Date/Time: Friday, October 27, 2017 22:25 - CONCLUSION: 1. Persistent but less prominent perinephric stranding. 2. Colonic diverticula. Jas Murphy MD PHYSICAL EXAMINATION: GENERAL: No acute distress. Awake and alert. HEENT: Head is atraumatic. Extraocular movements grossly intact. Pupils reactive to light, without icterus. Oropharynx, moist mucosa without lesions. NECK: Supple without adenopathy. LUNGS: Clear breath sounds. HEART: Regular S1 and S2. No murmurs, rubs or gallops. ABDOMEN: Bowel sounds present, soft, no tenderness appreciated. GENITOURINARY: The patient has a Mendoza catheter, which has clear light yellow urine. EXTREMITIES: No clubbing, cyanosis or edema. SKIN: No rash. NEUROLOGIC: No gross focal finding. PSYCHIATRIC: Calm and cooperative. IMPRESSION: 1. Sepsis due to Pseudomonas secondary to urinary infection. 2. Bacteremia due to Enterococcus. The patient also had recent bout of urinary tract infection due to Enterococcus. 3. Urinary tract infection due to Pseudomonas. Multidrug resistance. 4. Acute kidney disease. The patient has chronic indwelling Mendoza catheter, which predisposes him to recurrent urinary tract infection. RECOMMENDATIONS: 1. Continue piperacillin/tazobactam. 2. Continue gentamicin. 3. Monitor repeat blood cultures. 4. Monitor renal function and if any deterioration, will need to stop the gentamicin. 5. Continue to follow the clinical status. Martin Hewitt MD Oct 31, 2017 12:23
[2017-10-31] MEDS: GENTAMICIN INJ 120 MG in SODIUM CHLORIDE 0.9% INJ 100 ML IV SCH (18:24)
[2017-10-31] MEDS: INSULIN DETEMIR 100 UNITS/ML VIAL SQ SCH (21:57)
--- NOTE | 2017-10-31 23:37 | PD.CARD.PN ---
Subjective Subjective Remarks Patient was seen earlier today, late entry note No events overnight Better overall Objective Medications Current Medications Medications (Trade) Dose Ordered Sig/Juan Route Start Time Stop Time Status Last Admin (NS Flush) 2 ml UNSCH PRN IV FLUSH 10/27/17 23:15 (NS Flush) 2 ml BID IV FLUSH 10/28/17 09:00 10/31/17 20:19 (Zofran Inj) 4 mg Q6H PRN IVP 10/27/17 23:15 (Tylenol) 650 mg Q6H PRN PO 10/27/17 23:15 ([place] 5-325 Mg) 1 tab Q4H PRN PO 10/27/17 23:15 10/28/17 23:54 ([place] 10-325 Mg) 1 tab Q4H PRN PO 10/27/17 23:15 (Batsheva-Colace) 1 tab BID PO 10/28/17 09:00 10/31/17 20:18 (Milk Of Magnesia Liq) 30 ml Q12H PRN PO 10/27/17 23:15 (Senokot) 17.2 mg Q12H PRN PO 10/27/17 23:15 (Dulcolax Supp) 10 mg DAILY PRN RECTAL 10/27/17 23:15 (Lactulose Liq) 30 ml DAILY PRN PO 10/27/17 23:15 (Proscar) 5 mg DAILY PO 10/28/17 09:00 10/31/17 08:44 (Folate) 1 mg DAILY PO 10/28/17 09:00 10/31/17 08:45 (Levemir Inj) 15 units HS SQ 10/28/17 21:00 10/31/17 21:57 (Flomax) 0.4 mg DAILY PO 10/28/17 09:00 10/31/17 08:44 (Ecotrin Ec) 81 mg DAILY PO 10/28/17 09:00 10/31/17 08:45 (D50w (Vial) Inj) 50 ml UNSCH PRN IV PUSH 10/28/17 13:15 (Glucagon Inj) 1 mg UNSCH PRN OTHER 10/28/17 13:15 (NovoLOG SUPPLEMENTAL SCALE) 1 ACHS SLIDING SCALE SQ 10/28/17 17:00 10/31/17 21:57 (Catapres) 0.1 mg Q4H PRN PO 10/28/17 13:15 (Haldol) 0.5 mg BID PO 10/29/17 14:00 10/31/17 20:18 (Haldol Inj) 2 mg Q8H PRN IM 10/29/17 12:45 10/30/17 03:57 (risperDAL) 0.25 mg Q12HR PO 10/29/17 14:00 10/31/17 20:18 Piperacillin Sod/ Tazobactam Sod 2.25 gm/Sodium Chloride 50 ml @ 100 mls/hr Q6H IV 10/30/17 16:00 10/31/17 21:38 Pharmacy Profile Note 0 ml @ 0 mls/hr UNSCH OTHER 10/30/17 15:00 Gentamicin Sulfate 120 mg/ Sodium Chloride 103 ml @ 100 mls/hr Q24H IV 10/30/17 16:00 10/31/17 18:24 Miscellaneous Information SPECIFIC LAB TO BE EDEL... ONCE ONCE .XX 11/01/17 15:30 11/01/17 15:31 Sodium Chloride 250 ml @ 15 mls/hr ONCE ONCE IV 10/31/17 09:00 11/01/17 01:39 10/31/17 10:30 Miscellaneous Information SPECIFIC LAB TO BE DRAWN:GENTAMY... ONCE ONCE .XX 11/01/17 17:30 11/01/17 17:31 Vital Signs / I&O Vital Signs Date Time Temp Pulse Resp B/P (MAP) Pulse Ox O2 Delivery O2 Flow Rate FiO2 10/31/17 20:24 98.3 84 20 157/79 98 10/31/17 20:00 97.5 94 18 169/74 (105) 99 10/31/17 17:46 98.1 73 20 164/76 99 10/31/17 17:31 98.0 74 20 180/80 97 10/31/17 16:00 98.0 74 20 180/80 (113) 97 10/31/17 12:00 98.2 72 20 158/70 (99) 98 10/31/17 08:00 Room Air 10/31/17 08:00 97.3 75 20 166/68 (100) 96 10/31/17 08:00 72 10/31/17 04:00 98.4 74 18 159/72 (101) 95 10/31/17 04:00 69 10/31/17 00:00 78 17 10/31/17 00:00 78 I/O 10/31/17 10/31/17 10/31/17 11/01/17 11/01/17 11/01/17 07:00 15:00 23:00 07:00 15:00 23:00 Intake Total 390 ml 640 ml Output Total 650 ml 950 ml Balance -260 ml -310 ml Intake Oral 340 ml 240 ml IV Total 50 ml Packed Cells 400 ml Output Urine Total 650 ml 950 ml # Bowel Movements 1 1 Physical Exam GENERAL: NAD, alert and awake SKIN: Warm and dry. HEAD: Atraumatic. Normocephalic. EYES: Pupils equal and round. No scleral icterus. No injection or drainage. ENT: No nasal bleeding or discharge. Mucous membranes pink and moist. NECK: Trachea midline. No JVD. CARDIOVASCULAR: Regular rate and rhythm. RESPIRATORY: No accessory muscle use. Clear to auscultation. Breath sounds equal bilaterally. GASTROINTESTINAL: Abdomen soft, non-tender, nondistended. Hepatic and splenic margins not palpable. MUSCULOSKELETAL: Extremities without clubbing, cyanosis, or edema. No obvious deformities. NEUROLOGICAL: Awake and alert. No obvious cranial nerve deficits. Motor grossly within normal limits. Five out of 5 muscle strength in the arms and legs. Normal speech. PSYCHIATRIC: Appropriate mood and affect; insight and judgment normal. Laboratory Laboratory Tests Test 10/31/17 06:25 White Blood Count 6.9 TH/MM3 Red Blood Count 2.52 MIL/MM3 Hemoglobin 7.5 GM/DL Hematocrit 21.9 % Mean Corpuscular Volume 86.9 FL Mean Corpuscular Hemoglobin 29.7 PG Mean Corpuscular Hemoglobin Concent 34.2 % Red Cell Distribution Width 14.2 % Platelet Count 207 TH/MM3 Mean Platelet Volume 8.5 FL Neutrophils (%) (Auto) 58.0 % Lymphocytes (%) (Auto) 26.4 % Monocytes (%) (Auto) 10.5 % Eosinophils (%) (Auto) 4.3 % Basophils (%) (Auto) 0.8 % Neutrophils # (Auto) 4.0 TH/MM3 Lymphocytes # (Auto) 1.8 TH/MM3 Monocytes # (Auto) 0.7 TH/MM3 Eosinophils # (Auto) 0.3 TH/MM3 Basophils # (Auto) 0.1 TH/MM3 CBC Comment DIFF FINAL Differential Comment Blood Urea Nitrogen 25 MG/DL Creatinine 1.65 MG/DL Random Glucose 128 MG/DL Total Protein 6.0 GM/DL Albumin 2.5 GM/DL Calcium Level 8.5 MG/DL Phosphorus Level 3.1 MG/DL Magnesium Level 2.1 MG/DL Alkaline Phosphatase 60 U/L Aspartate Amino Transf (AST/SGOT) 12 U/L Alanine Aminotransferase (ALT/SGPT) 11 U/L Total Bilirubin 0.3 MG/DL Sodium Level 145 MEQ/L Potassium Level 3.9 MEQ/L Chloride Level 114 MEQ/L Carbon Dioxide Level 22.2 MEQ/L Anion Gap 9 MEQ/L Estimat Glomerular Filtration Rate 41 ML/MIN Assessment and Plan Problem List: (1) Bacteremia ICD Codes: R78.81 - Bacteremia (2) Dementia ICD Codes: F03.90 - Unspecified dementia without behavioral disturbance (3) Elevated troponin ICD Codes: R74.8 - Abnormal levels of other serum enzymes (4) Altered mental status ICD Codes: R41.82 - Altered mental status, unspecified Status: Acute (5) Major depressive disorder, recurrent, moderate ICD Codes: F33.1 - Major depressive disorder, recurrent, moderate Status: Acute (6) DM (diabetes mellitus) ICD Codes: E11.9 - Type 2 diabetes mellitus without complications Assessment and Plan 1) Elevated trop Asymptomatic Due to baseline dementia, asymptomatic and DNR status, will plan on medical management 2) Sepsis with bacteremia Echo with no concerns Repeat blood cultures negative so far, no plan for MIREYA, most likely urosepsis Jason Low DO Oct 31, 2017 23:37
[2017-11-01] VITALS (9 sets, daily range): BP systolic 136–162; BP diastolic 67–85; PULSE 60–82; RESP 17–19; TEMP 97.3–98.2; O2SAT 93–95
[2017-11-01] MEDS: PIPERACILLIN/TAZ 2.25 GM VIAL 2.25 GM in SODIUM CHLORIDE 0.9% INJ 50 ML IV SCH ×4 (04:00→21:33)
[2017-11-01] MEDS: INSULIN ASPART SUPPLEMENTAL SCALE SQ SCH ×4 (08:00→21:34)
[2017-11-01] MEDS: DOCUSATE SODIUM 50 MG/SENNA 8.6 MG TAB PO SCH ×2 (09:26→21:33)
[2017-11-01] MEDS: TAMSULOSIN HCL 0.4 MG CAP PO SCH (09:26)
[2017-11-01] MEDS: FINASTERIDE 5 MG TAB PO SCH (09:26)
[2017-11-01] MEDS: risperiDONE 0.25 MG TAB PO SCH ×2 (09:26→21:33)
[2017-11-01] MEDS: ASPIRIN EC 81 MG TABEC PO SCH (09:26)
[2017-11-01] MEDS: FOLIC ACID 1 MG TAB PO SCH (09:26)
[2017-11-01] MEDS: HALOPERIDOL 0.5 MG TAB PO SCH ×2 (09:26→21:33)
[2017-11-01] MEDS: SODIUM CHLORIDE 0.9% FLUSH 10 ML FLUSH IV FLUSH SCH ×2 (09:27→21:33)
--- NOTE | 2017-11-01 11:03 | HHI.PR ---
Subjective Remarks The patient is in bed he appears confused and very tired. He is arousable and follows some commands is says he is very weak. No fever or chills. Not coughing. Objective Vitals Vital Signs Date Time Temp Pulse Resp B/P (MAP) Pulse Ox O2 Delivery O2 Flow Rate FiO2 11/01/17 04:00 Room Air 11/01/17 04:00 97.3 67 18 162/77 (105) 94 11/01/17 03:55 66 11/01/17 00:00 98.2 80 19 136/85 (102) 94 11/01/17 00:00 Room Air 10/31/17 23:51 65 10/31/17 20:24 98.3 84 20 157/79 98 10/31/17 20:00 97.5 94 18 169/74 (105) 99 10/31/17 20:00 Room Air 10/31/17 20:00 87 10/31/17 17:46 98.1 73 20 164/76 99 10/31/17 17:31 98.0 74 20 180/80 97 10/31/17 16:00 98.0 74 20 180/80 (113) 97 10/31/17 12:00 98.2 72 20 158/70 (99) 98 I/O 10/31/17 10/31/17 10/31/17 11/01/17 11/01/17 11/01/17 07:00 15:00 23:00 07:00 15:00 23:00 Intake Total 390 ml 790 ml 830 ml Output Total 650 ml 950 ml 850 ml Balance -260 ml -160 ml -20 ml Intake Oral 340 ml 240 ml 780 ml IV Total 50 ml 150 ml 50 ml Packed Cells 400 ml Output Urine Total 650 ml 950 ml 850 ml # Bowel Movements 1 1 2 Result Diagram: 10/31/1762410/31/17624 Imaging Last Impressions Chest X-Ray 10/27/172033 Signed Impressions: Service Date/Time: Friday, October 27, 2017 20:59 - CONCLUSION: Cardiomegaly. Jas Murphy MD Abdomen/Pelvis CT 10/27/17 0000 Signed Impressions: Service Date/Time: Friday, October 27, 2017 22:25 - CONCLUSION: 1. Persistent but less prominent perinephric stranding. 2. Colonic diverticula. Jas Murphy MD Objective Remarks GENERAL: 72-year-old male, in bed does not appear in distress arousable however is disoriented and confused. CARDIOVASCULAR: Regular rate and rhythm without murmurs, gallops, or rubs. RESPIRATORY: Breath sounds equal bilaterally. No accessory muscle use. GASTROINTESTINAL: Abdomen soft, non-tender, nondistended. MUSCULOSKELETAL: No cyanosis, or edema. BACK: Nontender without obvious deformity. No CVA tenderness. Procedures NONE A/P Problem List: (1) Encephalopathy ICD Code: G93.40 - Encephalopathy, unspecified (2) Sepsis ICD Code: A41.9 - Sepsis, unspecified organism Status: Acute (3) UTI (urinary tract infection) ICD Code: N39.0 - Urinary tract infection, site not specified (4) Elevated troponin ICD Code: R74.8 - Abnormal levels of other serum enzymes Status: Acute (5) DM (diabetes mellitus) ICD Code: E11.9 - Type 2 diabetes mellitus without complications (6) DNR (do not resuscitate) ICD Code: Z66 - Do not resuscitate Assessment and Plan 72 year old male admitted with encephalopathy in setting of Sepsis from UTI. Urinary retention present at admit. Sepsis UTI Rocephin Gentamicin Zosyn ID Following Follow cultures Improving some on treatment Metabolic Encephalopathy secondary to UTI/Sepsis Treat as above Follow clinically Supportive Care Improving Troponin elevation Reactive vs. Mild Ischemic event No aggressive intervention Cardiology following DM2 controlled A1c is 6.6 Insulin Sliding Scale Follow blood sugars Diabetic Diet DVT Prophylaxis SCDs Discussed with the nurse Problem Qualifiers (1) Sepsis: Qualified Codes: A41.9 - Sepsis, unspecified organism Estefany Trinidad MD Nov 01, 2017 11:03
[2017-11-01] MEDS ORDERED: PHARMACY ORDERED LAB ONE ×3 (15:30→17:30)
[2017-11-01] MEDS: GENTAMICIN INJ 120 MG in SODIUM CHLORIDE 0.9% INJ 100 ML IV SCH (18:22)
[2017-11-01] MEDS: INSULIN DETEMIR 100 UNITS/ML VIAL SQ SCH (21:35)
[2017-11-02] VITALS (9 sets, daily range): BP systolic 139–168; BP diastolic 63–81; PULSE 61–83; RESP 17–20; TEMP 97.2–98.3; O2SAT 95–97
[2017-11-02] MEDS: PIPERACILLIN/TAZ 2.25 GM VIAL 2.25 GM in SODIUM CHLORIDE 0.9% INJ 50 ML IV SCH ×4 (03:40→23:42)
[2017-11-02] MEDS: INSULIN ASPART SUPPLEMENTAL SCALE SQ SCH ×4 (08:00→21:00)
[2017-11-02] MEDS: DOCUSATE SODIUM 50 MG/SENNA 8.6 MG TAB PO SCH ×2 (09:00→21:00)
[2017-11-02] MEDS: FOLIC ACID 1 MG TAB PO SCH (09:20)
[2017-11-02] MEDS: TAMSULOSIN HCL 0.4 MG CAP PO SCH (09:20)
[2017-11-02] MEDS: ASPIRIN EC 81 MG TABEC PO SCH (09:20)
[2017-11-02] MEDS: risperiDONE 0.25 MG TAB PO SCH ×2 (09:20→22:06)
[2017-11-02] MEDS: FINASTERIDE 5 MG TAB PO SCH (09:20)
[2017-11-02] MEDS: HALOPERIDOL 0.5 MG TAB PO SCH ×2 (09:20→22:06)
[2017-11-02] MEDS: SODIUM CHLORIDE 0.9% FLUSH 10 ML FLUSH IV FLUSH SCH ×2 (09:21→21:00)
[2017-11-02 11:18] LABS: AUTOMATED NEUTROPHIL # 7.1 TH/MM3 (1.8-7.7); BASOPHIL # 0.1 TH/MM3 (0-0.2); BASOPHIL % 1.1 % (0.0-2.0); EOSINOPHIL # 0.6 TH/MM3 (0-0.4); EOSINOPHIL % 5.3 % (0.0-4.0); HEMATOCRIT 27.6 % (39.0-51.0); HEMOGLOBIN 9.4 GM/DL (13.0-17.0); LYMPH % 22.3 % (9.0-44.0); LYMPHOCYTE # 2.5 TH/MM3 (1.0-4.8); MEAN CELL VOLUME 88.6 FL (80.0-100.0); MEAN CORPUSCULAR HEMOGLOBIN 30.1 PG (27.0-34.0); MEAN CORPUSCULAR HGB CONC 33.9 % (32.0-36.0); MEAN PLATELET VOLUME 8.2 FL (7.0-11.0); MONO % 7.6 % (0.0-8.0); MONOCYTE # 0.8 TH/MM3 (0-0.9); NEUT % 63.7 % (16.0-70.0); PLATELET COUNT 240 TH/MM3 (150-450); RED BLOOD COUNT 3.11 MIL/MM3 (4.50-5.90); RED CELL DISTRIBUTION WIDTH 14.2 % (11.6-17.2); WHITE BLOOD COUNT 11.1 TH/MM3 (4.0-11.0)
--- NOTE | 2017-11-02 11:32 | HHI.PR ---
Subjective Remarks In bed, more awake and alert today. He is alert and oriented by name the date of knows he is in the hospital and knows the procurement director. Is oriented by date.year and location. Patient says he feels very tired. Pleasantly confused. Does not have any pain at this time. He feels very weak. No nausea vomiting no diarrhea or constipation. Objective Vitals Vital Signs Date Time Temp Pulse Resp B/P (MAP) Pulse Ox O2 Delivery O2 Flow Rate FiO2 11/02/17 08:00 98.3 67 19 139/63 (88) 96 11/02/17 04:06 61 11/02/17 04:00 Room Air 11/02/17 04:00 97.2 67 17 158/72 (100) 97 11/02/17 00:14 76 11/02/17 00:00 97.9 79 18 162/73 (102) 96 11/02/17 00:00 Room Air 11/01/17 20:54 81 11/01/17 20:00 98.0 82 17 139/67 (91) 93 11/01/17 20:00 Room Air 11/01/17 16:00 98.1 70 18 138/80 (99) 95 11/01/17 15:23 69 11/01/17 12:00 97.4 68 18 148/72 (97) 94 I/O 11/01/17 11/01/17 11/01/17 11/02/17 11/02/17 11/02/17 07:00 15:00 23:00 07:00 15:00 23:00 Intake Total 830 ml 500 ml 203 ml 50 ml Output Total 850 ml 600 ml 1300 ml Balance -20 ml -100 ml 203 ml -1250 ml Intake Oral 780 ml 500 ml 0 ml IV Total 50 ml 203 ml 50 ml Output Urine Total 850 ml 600 ml 1300 ml # Bowel Movements 2 2 Result Diagram: 10/31/1762410/31/17624 Imaging Last Impressions Chest X-Ray 10/27/172033 Signed Impressions: Service Date/Time: Friday, October 27, 2017 20:59 - CONCLUSION: Cardiomegaly. Jas Murphy MD Abdomen/Pelvis CT 10/27/17 0000 Signed Impressions: Service Date/Time: Friday, October 27, 2017 22:25 - CONCLUSION: 1. Persistent but less prominent perinephric stranding. 2. Colonic diverticula. Jas Murphy MD Objective Remarks GENERAL: 72-year-old male, in bed does not appear in distress arousable however is disoriented and confused. CARDIOVASCULAR: Regular rate and rhythm without murmurs, gallops, or rubs. RESPIRATORY: Breath sounds equal bilaterally. No accessory muscle use. GASTROINTESTINAL: Abdomen soft, non-tender, nondistended. MUSCULOSKELETAL: No cyanosis, or edema. BACK: Nontender without obvious deformity. No CVA tenderness. Procedures NONE A/P Problem List: (1) Encephalopathy ICD Code: G93.40 - Encephalopathy, unspecified (2) Sepsis ICD Code: A41.9 - Sepsis, unspecified organism Status: Acute (3) UTI (urinary tract infection) ICD Code: N39.0 - Urinary tract infection, site not specified (4) Elevated troponin ICD Code: R74.8 - Abnormal levels of other serum enzymes Status: Acute (5) DM (diabetes mellitus) ICD Code: E11.9 - Type 2 diabetes mellitus without complications (6) DNR (do not resuscitate) ICD Code: Z66 - Do not resuscitate Assessment and Plan 72 year old male admitted with encephalopathy in setting of Sepsis from UTI. Urinary retention present at admit. Sepsis, improving UTI Rocephin Gentamicin Zosyn ID Following Follow cultures Improving some on treatment Metabolic Encephalopathy secondary to UTI/Sepsis. Improving Treat as above Follow clinically Supportive Care Improving Troponin elevation Reactive vs. Mild Ischemic event No aggressive intervention Cardiology following DM2 controlled A1c is 6.6 Insulin Sliding Scale Follow blood sugars Diabetic Diet DVT Prophylaxis SCDs Discussed with the patient, nurse Plan to DC to snf when improves and cleared by ID Problem Qualifiers (1) Sepsis: Qualified Codes: A41.9 - Sepsis, unspecified organism sEtefany Trinidad MD Nov 02, 2017 11:32
[2017-11-02 14:02] LABS: IRON (FE) 45 MCG/DL (65-175)
[2017-11-02 14:27] LABS: % SATURATION IRON PROFILE 17.5 % (20-50); FERRITIN 114 NG/ML (26-388); TOTAL IRON BINDING CAPACITY 258 MCG/DL (250-450)
[2017-11-02 14:28] LABS: FOLATE GREATER THAN 20.0 NG/ML (3.1-17.5)
--- NOTE | 2017-11-02 17:22 | HHI.IDPN ---
Note Infectious Disease Note Patient is alert and jovial. Feels somewhat confused. at bedside. No chills. Afebrile. Denies nausea vomiting. Repeat blood no growth in 3 days. Repeat urine decrease colonies of multi drug resistant Pseudomonas. Brought to the emergency department from nursing facility with altered mental status. PAST MEDICAL HISTORY: Hypertension, hyperlipidemia, diabetes mellitus, congestive heart failure, COPD, dementia, anxiety, depression, history of multiple urinary tract infections. ALLERGIES: NO KNOWN DRUG ALLERGIES. MEDICATIONS: Current Medications Medications (Trade) Dose Ordered Sig/Juan Route PRN Reason Start Time Stop Time Status Last Admin Dose Admin Sodium Chloride (NS Flush) 2 ml UNSCH PRN IV FLUSH FLUSH AFTER USING IV ACCESS 10/27/17 23:15 Sodium Chloride (NS Flush) 2 ml BID IV FLUSH 10/28/17 09:00 11/02/17 09:21 Ondansetron HCl (Zofran Inj) 4 mg Q6H PRN IVP NAUSEA OR VOMITING 10/27/17 23:15 Acetaminophen (Tylenol) 650 mg Q6H PRN PO FEVER/PAIN SCALE 1 TO 2 10/27/17 23:15 Acetaminophen/ Hydrocodone Bitart ([place] 5-325 Mg) 1 tab Q4H PRN PO PAIN SCALE 3 TO 5 10/27/17 23:15 10/28/17 23:54 Acetaminophen/ Hydrocodone Bitart ([place] 10-325 Mg) 1 tab Q4H PRN PO PAIN SCALE 6 TO 10 10/27/17 23:15 Senna/Docusate Sodium (Batsheva-Colace) 1 tab BID PO 10/28/17 09:00 11/01/17 21:33 Magnesium Hydroxide (Milk Of Magnesia Liq) 30 ml Q12H PRN PO Mild constipation 10/27/17 23:15 Sennosides (Senokot) 17.2 mg Q12H PRN PO Moderate constipation 10/27/17 23:15 Bisacodyl (Dulcolax Supp) 10 mg DAILY PRN RECTAL SEVERE CONSITIPATION 10/27/17 23:15 Lactulose (Lactulose Liq) 30 ml DAILY PRN PO SEVERE CONSITIPATION 10/27/17 23:15 Finasteride (Proscar) 5 mg DAILY PO 10/28/17 09:00 11/02/17 09:20 Folic Acid (Folate) 1 mg DAILY PO 10/28/17 09:00 11/02/17 09:20 Insulin Detemir (Levemir Inj) 15 units HS SQ 10/28/17 21:00 11/01/17 21:35 Tamsulosin HCl (Flomax) 0.4 mg DAILY PO 10/28/17 09:00 11/02/17 09:20 Aspirin (Ecotrin Ec) 81 mg DAILY PO 10/28/17 09:00 11/02/17 09:20 Dextrose (D50w (Vial) Inj) 50 ml UNSCH PRN IV PUSH HYPOGLYCEMIA-SEE COMMENTS 10/28/17 13:15 Glucagon (Glucagon Inj) 1 mg UNSCH PRN OTHER HYPOGLYCEMIA-SEE COMMENTS 10/28/17 13:15 Insulin Aspart (NovoLOG SUPPLEMENTAL SCALE) 1 ACHS SLIDING SCALE SQ 10/28/17 17:00 11/02/17 16:45 Clonidine (Catapres) 0.1 mg Q4H PRN PO SBP>160, DBP>90 10/28/17 13:15 Haloperidol (Haldol) 0.5 mg BID PO 10/29/17 14:00 11/02/17 09:20 Haloperidol Lactate (Haldol Inj) 2 mg Q8H PRN IM SEVERE ANXIETY/CONFUSION 10/29/17 12:45 10/30/17 03:57 Risperidone (risperDAL) 0.25 mg Q12HR PO 10/29/17 14:00 11/02/17 09:20 Piperacillin Sod/ Tazobactam Sod 2.25 gm/Sodium Chloride 50 ml @ 100 mls/hr Q6H IV 10/30/17 16:00 11/02/17 16:45 Pharmacy Profile Note 0 ml @ 0 mls/hr UNSCH OTHER 10/30/17 15:00 Gentamicin Sulfate 120 mg/ Sodium Chloride 103 ml @ 100 mls/hr Q24H IV 11/02/17 18:00 Miscellaneous Information SPECIFIC LAB TO BE EDEL... ONCE ONCE .XX 11/03/17 17:45 11/03/17 17:46 Miscellaneous Information SPECIFIC LAB TO BE EDEL... ONCE ONCE .XX 11/03/17 19:30 11/03/17 19:31 Objective: Vital Signs Date Time Temp Pulse Resp B/P (MAP) Pulse Ox O2 Delivery O2 Flow Rate FiO2 11/02/17 12:00 97.9 78 19 145/67 (93) 95 11/02/17 08:00 98.3 67 19 139/63 (88) 96 11/02/17 04:06 61 11/02/17 04:00 Room Air 11/02/17 04:00 97.2 67 17 158/72 (100) 97 11/02/17 00:14 76 11/02/17 00:00 97.9 79 18 162/73 (102) 96 11/02/17 00:00 Room Air 11/01/17 20:54 81 11/01/17 20:00 98.0 82 17 139/67 (91) 93 11/01/17 20:00 Room Air Laboratory Tests Test 11/02/17 10:55 White Blood Count 11.1 TH/MM3 Red Blood Count 3.11 MIL/MM3 Hemoglobin 9.4 GM/DL Hematocrit 27.6 % Mean Corpuscular Volume 88.6 FL Mean Corpuscular Hemoglobin 30.1 PG Mean Corpuscular Hemoglobin Concent 33.9 % Red Cell Distribution Width 14.2 % Platelet Count 240 TH/MM3 Mean Platelet Volume 8.2 FL Neutrophils (%) (Auto) 63.7 % Lymphocytes (%) (Auto) 22.3 % Monocytes (%) (Auto) 7.6 % Eosinophils (%) (Auto) 5.3 % Basophils (%) (Auto) 1.1 % Neutrophils # (Auto) 7.1 TH/MM3 Lymphocytes # (Auto) 2.5 TH/MM3 Monocytes # (Auto) 0.8 TH/MM3 Eosinophils # (Auto) 0.6 TH/MM3 Basophils # (Auto) 0.1 TH/MM3 CBC Comment AUTO DIFF Differential Comment AUTO DIFF CONFIRMED Laboratory Tests Test 11/02/17 13:12 Iron Level 45 MCG/DL Total Iron Binding Capacity 258 MCG/DL Percent Iron Saturation 17.5 % Ferritin 114 NG/ML Vitamin B12 Level 344 PG/ML Folate GREATER THAN 20.0 NG/ML Microbiology Date/Time Source Procedure Growth Status 10/30/17 21:25 Blood Peripheral Aerobic Blood Culture - Preliminary NO GROWTH IN 3 DAYS Resulted 10/30/17 21:25 Blood Peripheral Anaerobic Blood Culture - Preliminary NO GROWTH IN 3 DAYS Resulted 10/30/17 21:20 Blood Peripheral Aerobic Blood Culture - Preliminary NO GROWTH IN 3 DAYS Resulted 10/30/17 21:20 Blood Peripheral Anaerobic Blood Culture - Preliminary NO GROWTH IN 3 DAYS Resulted 10/31/17 07:00 Urine Catheterized Urine Urine Culture - Final Pseudomonas Aeruginosa Multi-Drug Resistant Ariella Tropicalis Complete Imaging: Chest X-Ray 10/27/172033 Signed Impressions: Service Date/Time: Friday, October 27, 2017 20:59 - CONCLUSION: Cardiomegaly. Jas Murphy MD Abdomen/Pelvis CT 10/27/17 0000 Signed Impressions: Service Date/Time: Friday, October 27, 2017 22:25 - CONCLUSION: 1. Persistent but less prominent perinephric stranding. 2. Colonic diverticula. Jas Murphy MD PHYSICAL EXAMINATION: GENERAL: No acute distress. Awake and alert. HEENT: Extraocular movements grossly intact. Pupils reactive to light, without icterus. Oropharynx, moist mucosa without lesions. NECK: Supple without adenopathy. LUNGS: Breath sounds clear. HEART: Regular S1 and S2. No murmurs, rubs or gallops. ABDOMEN: Bowel sounds present, soft, nontender. GENITOURINARY: Mendoza catheter has clear urine. EXTREMITIES: No clubbing, cyanosis or edema. SKIN: No rash. NEUROLOGIC: No gross focal finding. PSYCHIATRIC: Calm and cooperative. IMPRESSION: 1. Sepsis due to Pseudomonas secondary to urinary infection. 2. Bacteremia due to Enterococcus. The patient also had recent bout of urinary tract infection due to Enterococcus. 3. Urinary tract infection due to Pseudomonas. Multidrug resistant. 4. Acute kidney disease. The patient has chronic indwelling Mendoza catheter, which predisposes him to recurrent urinary tract infection. RECOMMENDATIONS: 1. Continue piperacillin/tazobactam. 2. Continue gentamicin. 3. Follow blood cultures. 4. Repeat the urine culture tomorrow to check for clearance of the resistant urine urine infection. 5. Monitor renal function and if any deterioration, will need to stop the gentamicin. 5. Continue to follow the clinical status. He needs to receive antibiotics until at least 11/06. Because of his renal function and the resistant bacteria needing aminoglycoside and need to monitor renal function closely We need to treat him in the hospital setting in order to supervise renal function. His call ID set up person for the weekend if input is needed this weekend. Martin Hewitt MD Nov 02, 2017 17:22
[2017-11-02] MEDS: GENTAMICIN INJ 120 MG in SODIUM CHLORIDE 0.9% INJ 100 ML IV SCH (18:27)
[2017-11-02] MEDS: INSULIN DETEMIR 100 UNITS/ML VIAL SQ SCH (22:07)
[2017-11-03] VITALS (10 sets, daily range): BP systolic 124–180; BP diastolic 65–81; PULSE 60–82; RESP 18–20; TEMP 97.3–98.4; O2SAT 95–98
[2017-11-03] MEDS: HALOPERIDOL LACTATE 5 MG/ML AMP IM PRN (05:00)
[2017-11-03] MEDS: PIPERACILLIN/TAZ 2.25 GM VIAL 2.25 GM in SODIUM CHLORIDE 0.9% INJ 50 ML IV SCH ×4 (05:10→22:07)
[2017-11-03 06:34] LABS: AUTOMATED NEUTROPHIL # 7.8 TH/MM3 (1.8-7.7); BASOPHIL % 1.1 % (0.0-2.0); EOSINOPHIL % 3.9 % (0.0-4.0); HEMOGLOBIN 9.4 GM/DL (13.0-17.0); LYMPH % 21.1 % (9.0-44.0); LYMPHOCYTE # 2.5 TH/MM3 (1.0-4.8); MEAN CELL VOLUME 87.7 FL (80.0-100.0); MEAN CORPUSCULAR HEMOGLOBIN 30.7 PG (27.0-34.0); MEAN CORPUSCULAR HGB CONC 34.9 % (32.0-36.0); MEAN PLATELET VOLUME 7.9 FL (7.0-11.0); MONO % 7.5 % (0.0-8.0); NEUT % 66.4 % (16.0-70.0); PLATELET COUNT 233 TH/MM3 (150-450); RED BLOOD COUNT 3.08 MIL/MM3 (4.50-5.90); RED CELL DISTRIBUTION WIDTH 14.3 % (11.6-17.2); WHITE BLOOD COUNT 11.7 TH/MM3 (4.0-11.0)
[2017-11-03 06:35] LABS: BASOPHIL # 0.1 TH/MM3 (0-0.2); EOSINOPHIL # 0.5 TH/MM3 (0-0.4); MONOCYTE # 0.9 TH/MM3 (0-0.9)
[2017-11-03 06:54] LABS: BICARBONATE 23.3 MEQ/L (21.0-32.0); CALCIUM 8.2 MG/DL (8.5-10.1); CREATININE 1.63 MG/DL (0.60-1.30)
[2017-11-03] MEDS: INSULIN ASPART SUPPLEMENTAL SCALE SQ SCH ×4 (08:00→20:10)
[2017-11-03 08:40] LABS: BANDS 3 % (0-6); LYMPHOCYTES 25 % (9-44); METAMYELOCYTES 1 % (0-1); MONOCYTES 5 % (0-8); MYELOCYTES 4 % (0-0); NEUTROPHIL # MANUAL DIFF 8.1 TH/MM3 (1.8-7.7); POLYS (SEG NEUTROPHILS) 61 % (16-70)
[2017-11-03] MEDS ORDERED: CYANOCOBALAMIN 100 MCG TAB PO ONE (09:15)
[2017-11-03] MEDS: FINASTERIDE 5 MG TAB PO SCH (10:32)
[2017-11-03] MEDS: HALOPERIDOL 0.5 MG TAB PO SCH ×2 (10:32→20:01)
[2017-11-03] MEDS: TAMSULOSIN HCL 0.4 MG CAP PO SCH (10:32)
[2017-11-03] MEDS: ASPIRIN EC 81 MG TABEC PO SCH (10:32)
[2017-11-03] MEDS: risperiDONE 0.25 MG TAB PO SCH ×2 (10:32→20:01)
[2017-11-03] MEDS: DOCUSATE SODIUM 50 MG/SENNA 8.6 MG TAB PO SCH ×2 (10:33→20:01)
[2017-11-03] MEDS: FOLIC ACID 1 MG TAB PO SCH (10:33)
[2017-11-03] MEDS: SODIUM CHLORIDE 0.9% FLUSH 10 ML FLUSH IV FLUSH SCH ×2 (10:34→20:01)
[2017-11-03] MEDS: cloNIDine HCL 0.1 MG TAB PO PRN (15:37)
--- NOTE | 2017-11-03 16:36 | HHI.PR ---
Subjective Remarks Patient was seen earlier today. He is sleepy. Family is daughter is at bedside discussed at length. Patient was more awake and alert today and was able to eat better today. No fever or chills no nausea vomiting no diarrhea or constipation no pain at this time. Objective Vitals Vital Signs Date Time Temp Pulse Resp B/P (MAP) Pulse Ox O2 Delivery O2 Flow Rate FiO2 11/03/17 15:31 98.0 63 20 165/72 (103) 97 11/03/17 12:00 97.3 68 18 169/75 (106) 96 11/03/17 08:00 97.3 68 18 153/71 (98) 98 11/03/17 08:00 Room Air 11/03/17 06:14 97.6 67 20 149/66 (93) 96 11/03/17 04:01 73 11/03/17 00:00 98.4 79 20 180/81 (114) 97 11/02/17 23:40 83 11/02/17 20:00 97.7 80 20 168/81 (110) 96 11/02/17 20:00 Room Air 11/02/17 19:47 83 I/O 11/02/17 11/02/17 11/02/17 11/03/17 11/03/17 11/03/17 07:00 15:00 23:00 07:00 15:00 23:00 Intake Total 50 ml 480 ml 220 ml Output Total 1300 ml 700 ml 1125 ml Balance -1250 ml -220 ml -905 ml Intake Oral 0 ml 480 ml 120 ml IV Total 50 ml 100 ml Output Urine Total 1300 ml 700 ml 1125 ml # Bowel Movements 2 1 Result Diagram: 11/03/1760411/03/17604 Imaging Last Impressions Chest X-Ray 10/27/172033 Signed Impressions: Service Date/Time: Friday, October 27, 2017 20:59 - CONCLUSION: Cardiomegaly. Jas Murphy MD Abdomen/Pelvis CT 10/27/17 0000 Signed Impressions: Service Date/Time: Friday, October 27, 2017 22:25 - CONCLUSION: 1. Persistent but less prominent perinephric stranding. 2. Colonic diverticula. Jas Murphy MD Objective Remarks GENERAL: 72-year-old male, in bed does not appear in distress arousable however is disoriented and confused. CARDIOVASCULAR: Regular rate and rhythm without murmurs, gallops, or rubs. RESPIRATORY: Breath sounds equal bilaterally. No accessory muscle use. GASTROINTESTINAL: Abdomen soft, non-tender, nondistended. MUSCULOSKELETAL: No cyanosis, or edema. BACK: Nontender without obvious deformity. No CVA tenderness. Procedures NONE A/P Problem List: (1) Encephalopathy ICD Code: G93.40 - Encephalopathy, unspecified (2) Sepsis ICD Code: A41.9 - Sepsis, unspecified organism Status: Acute (3) UTI (urinary tract infection) ICD Code: N39.0 - Urinary tract infection, site not specified (4) Elevated troponin ICD Code: R74.8 - Abnormal levels of other serum enzymes Status: Acute (5) DM (diabetes mellitus) ICD Code: E11.9 - Type 2 diabetes mellitus without complications (6) DNR (do not resuscitate) ICD Code: Z66 - Do not resuscitate Assessment and Plan 72 year old male admitted with encephalopathy in setting of Sepsis from UTI. Urinary retention present at admit. Sepsis, improving UTI Rocephin Gentamicin Zosyn ID Following Follow cultures Improving some on treatment Metabolic Encephalopathy secondary to UTI/Sepsis. Improving Treat as above Follow clinically Supportive Care Improving Troponin elevation Reactive vs. Mild Ischemic event No aggressive intervention Cardiology following DM2 controlled A1c is 6.6 Insulin Sliding Scale Follow blood sugars Diabetic Diet DVT Prophylaxis SCDs Discussed with the patient, nurse Plan to DC to snf when improves and cleared by ID Plan for IV antibiotic Zosyn and gentamicin until 11/06/17. Patient is to stay inpatient while he received his antibiotics to monitor closely the renal function. Discussed with Dr. Hewitt infectious disease visualized Problem Qualifiers (1) Sepsis: Qualified Codes: A41.9 - Sepsis, unspecified organism Estefany Trinidad MD Nov 03, 2017 16:36
[2017-11-03] MEDS ORDERED: PHARMACY ORDERED LAB ONE ×2 (17:45→19:30)
[2017-11-03] MEDS: GENTAMICIN INJ 120 MG in SODIUM CHLORIDE 0.9% INJ 100 ML IV SCH (18:35)
[2017-11-03] MEDS: INSULIN DETEMIR 100 UNITS/ML VIAL SQ SCH (20:02)
[2017-11-04] VITALS (11 sets, daily range): BP systolic 148–158; BP diastolic 67–75; PULSE 62–81; RESP 18–19; TEMP 97.3–97.9; O2SAT 95–99
[2017-11-04] MEDS: HALOPERIDOL LACTATE 5 MG/ML AMP IM PRN (00:46)
[2017-11-04] MEDS: PIPERACILLIN/TAZ 2.25 GM VIAL 2.25 GM in SODIUM CHLORIDE 0.9% INJ 50 ML IV SCH ×4 (04:06→21:35)
[2017-11-04] MEDS: INSULIN ASPART SUPPLEMENTAL SCALE SQ SCH ×4 (07:57→21:34)
[2017-11-04] MEDS: DOCUSATE SODIUM 50 MG/SENNA 8.6 MG TAB PO SCH ×2 (09:49→21:33)
[2017-11-04] MEDS: TAMSULOSIN HCL 0.4 MG CAP PO SCH (09:49)
[2017-11-04] MEDS: risperiDONE 0.25 MG TAB PO SCH ×2 (09:49→21:33)
[2017-11-04] MEDS: ASPIRIN EC 81 MG TABEC PO SCH (09:49)
[2017-11-04] MEDS: HALOPERIDOL 0.5 MG TAB PO SCH ×2 (09:49→21:33)
[2017-11-04] MEDS: CYANOCOBALAMIN 100 MCG TAB PO SCH (09:49)
[2017-11-04] MEDS: FINASTERIDE 5 MG TAB PO SCH (09:49)
[2017-11-04] MEDS: FOLIC ACID 1 MG TAB PO SCH (09:49)
[2017-11-04] MEDS: SODIUM CHLORIDE 0.9% FLUSH 10 ML FLUSH IV FLUSH SCH ×2 (09:49→21:34)
--- NOTE | 2017-11-04 14:56 | HHI.PR ---
Subjective Remarks More awake and alert today. he is eating more. No much appetite however. Some nausea no vomiting. No diarrhea or constipation. No fever or chills. Objective Vitals Vital Signs Date Time Temp Pulse Resp B/P (MAP) Pulse Ox O2 Delivery O2 Flow Rate FiO2 11/04/17 12:00 97.4 71 18 148/70 (96) 95 11/04/17 08:00 97.8 63 18 155/68 (97) 98 11/04/17 04:07 62 11/04/17 04:00 Room Air 11/04/17 04:00 97.3 69 18 155/75 (101) 99 11/04/17 00:16 69 11/04/17 00:00 97.8 81 19 152/73 (99) 96 11/04/17 00:00 Room Air 11/03/17 20:10 82 11/03/17 20:00 Room Air 11/03/17 20:00 97.5 81 18 124/65 (84) 95 11/03/17 17:31 63 147/75 (99) 11/03/17 16:00 62 11/03/17 15:31 98.0 63 20 165/72 (103) 97 I/O 11/03/17 11/03/17 11/03/17 11/04/17 11/04/17 11/04/17 07:00 15:00 23:00 07:00 15:00 23:00 Intake Total 220 ml 50 ml 100 ml 170 ml Output Total 1125 ml 700 ml Balance -905 ml 50 ml 100 ml -530 ml Intake Oral 120 ml 120 ml IV Total 100 ml 50 ml 100 ml 50 ml Output Urine Total 1125 ml 700 ml # Bowel Movements 1 Result Diagram: 11/03/1760411/03/17604 Imaging Last Impressions Chest X-Ray 10/27/172033 Signed Impressions: Service Date/Time: Friday, October 27, 2017 20:59 - CONCLUSION: Cardiomegaly. Jas Murphy MD Abdomen/Pelvis CT 10/27/17 0000 Signed Impressions: Service Date/Time: Friday, October 27, 2017 22:25 - CONCLUSION: 1. Persistent but less prominent perinephric stranding. 2. Colonic diverticula. Jas Murphy MD Objective Remarks GENERAL: 72-year-old male, in bed does not appear in distress arousable however is disoriented and confused. CARDIOVASCULAR: Regular rate and rhythm without murmurs, gallops, or rubs. RESPIRATORY: Breath sounds equal bilaterally. No accessory muscle use. GASTROINTESTINAL: Abdomen soft, non-tender, nondistended. MUSCULOSKELETAL: No cyanosis, or edema. BACK: Nontender without obvious deformity. No CVA tenderness. Procedures NONE A/P Problem List: (1) Encephalopathy ICD Code: G93.40 - Encephalopathy, unspecified (2) Sepsis ICD Code: A41.9 - Sepsis, unspecified organism Status: Acute (3) UTI (urinary tract infection) ICD Code: N39.0 - Urinary tract infection, site not specified (4) Elevated troponin ICD Code: R74.8 - Abnormal levels of other serum enzymes Status: Acute (5) DM (diabetes mellitus) ICD Code: E11.9 - Type 2 diabetes mellitus without complications (6) DNR (do not resuscitate) ICD Code: Z66 - Do not resuscitate Assessment and Plan 72 year old male admitted with encephalopathy in setting of Sepsis from UTI. Urinary retention present at admit. Sepsis, improving UTI Rocephin Gentamicin Zosyn ID Following Follow cultures Improving some on treatment Metabolic Encephalopathy secondary to UTI/Sepsis. Improving Treat as above Follow clinically Supportive Care Improving Troponin elevation Reactive vs. Mild Ischemic event No aggressive intervention Cardiology following DM2 controlled A1c is 6.6 Insulin Sliding Scale Follow blood sugars Diabetic Diet DVT Prophylaxis SCDs Discussed with the patient, nurse Plan to DC to snf when improves and cleared by ID Plan for IV antibiotic Zosyn and gentamicin until 11/06/17. Patient is to stay inpatient while he received his antibiotics to monitor closely the renal function, discussed with Dr Lopez ID specialist. Plan discussed with the patient, family. Problem Qualifiers (1) Sepsis: Qualified Codes: A41.9 - Sepsis, unspecified organism Estefany Trinidad MD Nov 04, 2017 14:56
[2017-11-04] MEDS: GENTAMICIN INJ 120 MG in SODIUM CHLORIDE 0.9% INJ 100 ML IV SCH (17:00)
[2017-11-04] MEDS: INSULIN DETEMIR 100 UNITS/ML VIAL SQ SCH (21:34)
[2017-11-05] VITALS (10 sets, daily range): BP systolic 144–166; BP diastolic 72–81; PULSE 68–90; RESP 16–20; TEMP 97–98.2; O2SAT 95–98
[2017-11-05] MEDS: PIPERACILLIN/TAZ 2.25 GM VIAL 2.25 GM in SODIUM CHLORIDE 0.9% INJ 50 ML IV SCH ×4 (03:19→20:51)
[2017-11-05] MEDS: cloNIDine HCL 0.1 MG TAB PO PRN (03:19)
[2017-11-05] MEDS: INSULIN ASPART SUPPLEMENTAL SCALE SQ SCH ×4 (08:00→20:51)
[2017-11-05] MEDS: SODIUM CHLORIDE 0.9% FLUSH 10 ML FLUSH IV FLUSH SCH ×2 (09:26→20:52)
[2017-11-05] MEDS: ASPIRIN EC 81 MG TABEC PO SCH (09:27)
[2017-11-05] MEDS: TAMSULOSIN HCL 0.4 MG CAP PO SCH (09:27)
[2017-11-05] MEDS: CYANOCOBALAMIN 100 MCG TAB PO SCH (09:27)
[2017-11-05] MEDS: DOCUSATE SODIUM 50 MG/SENNA 8.6 MG TAB PO SCH ×2 (09:27→20:50)
[2017-11-05] MEDS: FINASTERIDE 5 MG TAB PO SCH (09:27)
[2017-11-05] MEDS: FOLIC ACID 1 MG TAB PO SCH (09:27)
[2017-11-05 10:13] LABS: BICARBONATE 23.8 MEQ/L (21.0-32.0); CALCIUM 8.7 MG/DL (8.5-10.1); CREATININE 1.64 MG/DL (0.60-1.30)
[2017-11-05 10:14] LABS: AUTOMATED NEUTROPHIL # 5.7 TH/MM3 (1.8-7.7); BASOPHIL # 0.1 TH/MM3 (0-0.2); EOSINOPHIL # 0.9 TH/MM3 (0-0.4); EOSINOPHIL % 8.6 % (0.0-4.0); HEMATOCRIT 28.1 % (39.0-51.0); HEMOGLOBIN 9.9 GM/DL (13.0-17.0); LYMPH % 25.8 % (9.0-44.0); LYMPHOCYTE # 2.6 TH/MM3 (1.0-4.8); MEAN CELL VOLUME 87.9 FL (80.0-100.0); MEAN CORPUSCULAR HEMOGLOBIN 30.9 PG (27.0-34.0); MEAN CORPUSCULAR HGB CONC 35.1 % (32.0-36.0); MONO % 7.9 % (0.0-8.0); MONOCYTE # 0.8 TH/MM3 (0-0.9); NEUT % 56.7 % (16.0-70.0); PLATELET COUNT 262 TH/MM3 (150-450); RED CELL DISTRIBUTION WIDTH 14.5 % (11.6-17.2)
[2017-11-05] MEDS: HALOPERIDOL 0.5 MG TAB PO SCH ×2 (10:14→20:49)
[2017-11-05] MEDS: risperiDONE 0.25 MG TAB PO SCH ×2 (10:14→20:49)
--- NOTE | 2017-11-05 14:21 | HHI.PR ---
Subjective Remarks Patient at the margin of the bed. Occupational therapy. More awake and alert today. No fever or chills no follow with urination. No nausea or vomiting no diarrhea or constipation. Plan for antibiotics until tomorrow. Objective Vitals Vital Signs Date Time Temp Pulse Resp B/P (MAP) Pulse Ox O2 Delivery O2 Flow Rate FiO2 11/05/17 12:05 97.0 68 18 155/81 (105) 95 11/05/17 08:00 70 11/05/17 08:00 97 Room Air 11/05/17 08:00 97.7 68 20 152/74 (100) 97 11/05/17 04:01 69 11/05/17 04:00 Room Air 11/05/17 04:00 97.9 69 18 166/72 (103) 97 11/05/17 00:00 98.2 74 17 159/74 (102) 98 11/05/17 00:00 Room Air 11/04/17 23:53 68 11/04/17 20:05 77 11/04/17 20:00 Room Air 11/04/17 20:00 97.6 76 19 154/67 (96) 96 11/04/17 16:00 97.9 69 18 158/75 (102) 97 11/04/17 16:00 77 I/O 11/04/17 11/04/17 11/04/17 11/05/17 11/05/17 11/05/17 07:00 15:00 23:00 07:00 15:00 23:00 Intake Total 170 ml 633 ml 420 ml Output Total 700 ml 600 ml 1250 ml Balance -530 ml 33 ml -830 ml Intake Oral 120 ml 480 ml 420 ml IV Total 50 ml 153 ml Output Urine Total 700 ml 600 ml 1250 ml # Bowel Movements 1 1 1 Result Diagram: 11/05/1715 11/05/17914 Imaging Last Impressions Chest X-Ray 10/27/172033 Signed Impressions: Service Date/Time: Friday, October 27, 2017 20:59 - CONCLUSION: Cardiomegaly. Jas Murphy MD Abdomen/Pelvis CT 10/27/17 0000 Signed Impressions: Service Date/Time: Friday, October 27, 2017 22:25 - CONCLUSION: 1. Persistent but less prominent perinephric stranding. 2. Colonic diverticula. Jas Murphy MD Objective Remarks GENERAL: 72-year-old male, in bed does not appear in distress arousable however is disoriented and confused. CARDIOVASCULAR: Regular rate and rhythm without murmurs, gallops, or rubs. RESPIRATORY: Breath sounds equal bilaterally. No accessory muscle use. GASTROINTESTINAL: Abdomen soft, non-tender, nondistended. MUSCULOSKELETAL: No cyanosis, or edema. BACK: Nontender without obvious deformity. No CVA tenderness. Procedures NONE A/P Problem List: (1) Encephalopathy ICD Code: G93.40 - Encephalopathy, unspecified (2) Sepsis ICD Code: A41.9 - Sepsis, unspecified organism Status: Acute (3) UTI (urinary tract infection) ICD Code: N39.0 - Urinary tract infection, site not specified (4) Elevated troponin ICD Code: R74.8 - Abnormal levels of other serum enzymes Status: Acute (5) DM (diabetes mellitus) ICD Code: E11.9 - Type 2 diabetes mellitus without complications (6) DNR (do not resuscitate) ICD Code: Z66 - Do not resuscitate Assessment and Plan 72 year old male admitted with encephalopathy in setting of Sepsis from UTI. Urinary retention present at admit. Sepsis, improving UTI Rocephin Gentamicin Zosyn ID Following Follow cultures Improving some on treatment Metabolic Encephalopathy secondary to UTI/Sepsis. Improving Treat as above Follow clinically Supportive Care Improving Troponin elevation Reactive vs. Mild Ischemic event No aggressive intervention Cardiology following DM2 controlled A1c is 6.6 Insulin Sliding Scale Follow blood sugars Diabetic Diet DVT Prophylaxis SCDs Discussed with the patient, nurse Plan to DC to snf when improves and cleared by ID Plan for IV antibiotic Zosyn and gentamicin until 11/06/17. Patient is to stay inpatient while he received his antibiotics to monitor closely the renal function, discussed with Dr Lopez ID specialist. Plan discussed with the patient, family. Problem Qualifiers (1) Sepsis: Qualified Codes: A41.9 - Sepsis, unspecified organism Estefany Trinidad MD Nov 05, 2017 14:21
--- NOTE | 2017-11-05 15:13 | HHI.IDPN ---
Note Infectious Disease Note Patient is in no distress. Awake. Alert. Says he feels sleepy. Afebrile. Repeat blood no growth in 3 days. Repeat urine decrease colonies of multi drug resistant Pseudomonas. Repeat urine culture has Ariella. Brought to the emergency department from nursing facility with altered mental status. PAST MEDICAL HISTORY: Hypertension, hyperlipidemia, diabetes mellitus, congestive heart failure, COPD, dementia, anxiety, depression, history of multiple urinary tract infections. ALLERGIES: NO KNOWN DRUG ALLERGIES. MEDICATIONS: Current Medications Medications (Trade) Dose Ordered Sig/Juan Route PRN Reason Start Time Stop Time Status Last Admin Dose Admin Sodium Chloride (NS Flush) 2 ml UNSCH PRN IV FLUSH FLUSH AFTER USING IV ACCESS 10/27/17 23:15 Sodium Chloride (NS Flush) 2 ml BID IV FLUSH 10/28/17 09:00 11/05/17 09:26 Ondansetron HCl (Zofran Inj) 4 mg Q6H PRN IVP NAUSEA OR VOMITING 10/27/17 23:15 Acetaminophen (Tylenol) 650 mg Q6H PRN PO FEVER/PAIN SCALE 1 TO 2 10/27/17 23:15 Acetaminophen/ Hydrocodone Bitart ([place] 5-325 Mg) 1 tab Q4H PRN PO PAIN SCALE 3 TO 5 10/27/17 23:15 10/28/17 23:54 Acetaminophen/ Hydrocodone Bitart ([place] 10-325 Mg) 1 tab Q4H PRN PO PAIN SCALE 6 TO 10 10/27/17 23:15 Senna/Docusate Sodium (Batsheva-Colace) 1 tab BID PO 10/28/17 09:00 11/05/17 09:27 Magnesium Hydroxide (Milk Of Magnesia Liq) 30 ml Q12H PRN PO Mild constipation 10/27/17 23:15 Sennosides (Senokot) 17.2 mg Q12H PRN PO Moderate constipation 10/27/17 23:15 Bisacodyl (Dulcolax Supp) 10 mg DAILY PRN RECTAL SEVERE CONSITIPATION 10/27/17 23:15 Lactulose (Lactulose Liq) 30 ml DAILY PRN PO SEVERE CONSITIPATION 10/27/17 23:15 Finasteride (Proscar) 5 mg DAILY PO 10/28/17 09:00 11/05/17 09:27 Folic Acid (Folate) 1 mg DAILY PO 10/28/17 09:00 11/05/17 09:27 Insulin Detemir (Levemir Inj) 15 units HS SQ 10/28/17 21:00 11/04/17 21:34 Tamsulosin HCl (Flomax) 0.4 mg DAILY PO 10/28/17 09:00 11/05/17 09:27 Aspirin (Ecotrin Ec) 81 mg DAILY PO 10/28/17 09:00 11/05/17 09:27 Dextrose (D50w (Vial) Inj) 50 ml UNSCH PRN IV PUSH HYPOGLYCEMIA-SEE COMMENTS 10/28/17 13:15 Glucagon (Glucagon Inj) 1 mg UNSCH PRN OTHER HYPOGLYCEMIA-SEE COMMENTS 10/28/17 13:15 Insulin Aspart (NovoLOG SUPPLEMENTAL SCALE) 1 ACHS SLIDING SCALE SQ 10/28/17 17:00 11/05/17 12:00 Clonidine (Catapres) 0.1 mg Q4H PRN PO SBP>160, DBP>90 10/28/17 13:15 11/05/17 03:19 Haloperidol (Haldol) 0.5 mg BID PO 10/29/17 14:00 11/05/17 10:14 Haloperidol Lactate (Haldol Inj) 2 mg Q8H PRN IM SEVERE ANXIETY/CONFUSION 10/29/17 12:45 11/04/17 00:46 Risperidone (risperDAL) 0.25 mg Q12HR PO 10/29/17 14:00 11/05/17 10:14 Piperacillin Sod/ Tazobactam Sod 2.25 gm/Sodium Chloride 50 ml @ 100 mls/hr Q6H IV 10/30/17 16:00 11/05/17 10:15 Pharmacy Profile Note 0 ml @ 0 mls/hr UNSCH OTHER 10/30/17 15:00 Gentamicin Sulfate 120 mg/ Sodium Chloride 103 ml @ 100 mls/hr Q24H IV 11/02/17 18:00 11/04/17 17:00 Cyanocobalamin (Vitamin B12) 100 mcg DAILY PO 11/04/17 09:00 11/05/17 09:27 Objective: Vital Signs Date Time Temp Pulse Resp B/P (MAP) Pulse Ox O2 Delivery O2 Flow Rate FiO2 11/05/17 12:05 97.0 68 18 155/81 (105) 95 11/05/17 08:00 70 11/05/17 08:00 97 Room Air 11/05/17 08:00 97.7 68 20 152/74 (100) 97 11/05/17 04:01 69 11/05/17 04:00 Room Air 11/05/17 04:00 97.9 69 18 166/72 (103) 97 11/05/17 00:00 98.2 74 17 159/74 (102) 98 11/05/17 00:00 Room Air 11/04/17 23:53 68 11/04/17 20:05 77 11/04/17 20:00 Room Air 11/04/17 20:00 97.6 76 19 154/67 (96) 96 11/04/17 16:00 97.9 69 18 158/75 (102) 97 11/04/17 16:00 77 Laboratory Tests Test 11/05/17 09:15 White Blood Count 10.0 TH/MM3 Red Blood Count 3.20 MIL/MM3 Hemoglobin 9.9 GM/DL Hematocrit 28.1 % Mean Corpuscular Volume 87.9 FL Mean Corpuscular Hemoglobin 30.9 PG Mean Corpuscular Hemoglobin Concent 35.1 % Red Cell Distribution Width 14.5 % Platelet Count 262 TH/MM3 Mean Platelet Volume 8.0 FL Neutrophils (%) (Auto) 56.7 % Lymphocytes (%) (Auto) 25.8 % Monocytes (%) (Auto) 7.9 % Eosinophils (%) (Auto) 8.6 % Basophils (%) (Auto) 1.0 % Neutrophils # (Auto) 5.7 TH/MM3 Lymphocytes # (Auto) 2.6 TH/MM3 Monocytes # (Auto) 0.8 TH/MM3 Eosinophils # (Auto) 0.9 TH/MM3 Basophils # (Auto) 0.1 TH/MM3 CBC Comment AUTO DIFF Differential Comment AUTO DIFF CONFIRMED Platelet Estimate NORMAL Platelet Morphology Comment NORMAL Red Cell Morphology Comment NORMAL Laboratory Tests Test 11/05/17 09:15 Blood Urea Nitrogen 23 MG/DL Creatinine 1.64 MG/DL Random Glucose 100 MG/DL Calcium Level 8.7 MG/DL Sodium Level 142 MEQ/L Potassium Level 3.9 MEQ/L Chloride Level 111 MEQ/L Carbon Dioxide Level 23.8 MEQ/L Anion Gap 7 MEQ/L Estimat Glomerular Filtration Rate 42 ML/MIN Microbiology Date/Time Source Procedure Growth Status 11/03/17 11:30 Urine Catheterized Urine Urine Culture - Final Ariella Tropicalis Complete Imaging: Chest X-Ray 10/27/172033 Signed Impressions: Service Date/Time: Friday, October 27, 2017 20:59 - CONCLUSION: Cardiomegaly. Jas Murphy MD Abdomen/Pelvis CT 10/27/17 0000 Signed Impressions: Service Date/Time: Friday, October 27, 2017 22:25 - CONCLUSION: 1. Persistent but less prominent perinephric stranding. 2. Colonic diverticula. Jas Murphy MD PHYSICAL EXAMINATION: GENERAL: No acute distress. Awake and alert. HEENT: Extraocular movements grossly intact. Pupils reactive to light, without icterus. Oropharynx, moist mucosa without lesions. NECK: Supple without adenopathy. LUNGS: Clear breath sounds. HEART: Regular S1 and S2. No murmurs, rubs or gallops. ABDOMEN: Bowel sounds present, soft, nontender. GENITOURINARY: Mendoza catheter has clear urine. EXTREMITIES: No clubbing, cyanosis or edema. SKIN: No rash. NEUROLOGIC: Nonfocal. PSYCHIATRIC: Calm and cooperative. IMPRESSION: 1. Sepsis due to Pseudomonas secondary to urinary infection. Urine culture now has Ariella. 2. Bacteremia due to Enterococcus. The patient also had recent bout of urinary tract infection due to Enterococcus. 3. Urinary tract infection due to Pseudomonas. Multidrug resistant. 4. Acute kidney disease. The patient has chronic indwelling Mendoza catheter, which predisposes him to recurrent urinary tract infection. RECOMMENDATIONS: 1. Continue piperacillin/tazobactam. Complete treatment on 417 2. Continue gentamicin. Complete treatment on 417 3. Diflucan p.o. for Ariella in the urine. 4. Monitor clinical status. I will sign off now. Okay to discharge after completion of the antibiotics IV. The Diflucan can be continued for total of 5 days. Martin Hewitt MD Nov 05, 2017 15:13
[2017-11-05] MEDS: GENTAMICIN INJ 120 MG in SODIUM CHLORIDE 0.9% INJ 100 ML IV SCH (18:00)
[2017-11-05] MEDS: FLUCONAZOLE 100 MG TAB PO SCH (18:34)
[2017-11-05] MEDS: INSULIN DETEMIR 100 UNITS/ML VIAL SQ SCH (20:52)
[2017-11-06] VITALS (7 sets, daily range): BP systolic 118–162; BP diastolic 65–79; PULSE 59–84; RESP 15–16; TEMP 97.2–98.4; O2SAT 97–99
[2017-11-06] MEDS: PIPERACILLIN/TAZ 2.25 GM VIAL 2.25 GM in SODIUM CHLORIDE 0.9% INJ 50 ML IV SCH ×2 (04:05→11:13)
[2017-11-06 07:21] LABS: AUTOMATED NEUTROPHIL # 5.7 TH/MM3 (1.8-7.7); BASOPHIL # 0.1 TH/MM3 (0-0.2); BASOPHIL % 1.2 % (0.0-2.0); EOSINOPHIL # 0.5 TH/MM3 (0-0.4); EOSINOPHIL % 5.4 % (0.0-4.0); HEMATOCRIT 27.4 % (39.0-51.0); HEMOGLOBIN 9.6 GM/DL (13.0-17.0); LYMPH % 25.6 % (9.0-44.0); LYMPHOCYTE # 2.5 TH/MM3 (1.0-4.8); MEAN CELL VOLUME 87.7 FL (80.0-100.0); MEAN CORPUSCULAR HEMOGLOBIN 30.6 PG (27.0-34.0); MEAN CORPUSCULAR HGB CONC 34.9 % (32.0-36.0); MEAN PLATELET VOLUME 7.9 FL (7.0-11.0); MONO % 8.4 % (0.0-8.0); MONOCYTE # 0.8 TH/MM3 (0-0.9); NEUT % 59.4 % (16.0-70.0); PLATELET COUNT 254 TH/MM3 (150-450); RED BLOOD COUNT 3.13 MIL/MM3 (4.50-5.90); RED CELL DISTRIBUTION WIDTH 14.4 % (11.6-17.2); WHITE BLOOD COUNT 9.6 TH/MM3 (4.0-11.0)
[2017-11-06 07:46] LABS: BICARBONATE 24.8 MEQ/L (21.0-32.0); CALCIUM 8.6 MG/DL (8.5-10.1); CREATININE 1.68 MG/DL (0.60-1.30)
[2017-11-06] MEDS ORDERED: DIFL100T PO (07:59)
[2017-11-06] MEDS: INSULIN ASPART SUPPLEMENTAL SCALE SQ SCH ×2 (08:00→12:00)
[2017-11-06] MEDS ORDERED: HALO0.5T PO (08:01)
[2017-11-06] MEDS ORDERED: RISP.25 PO (08:01)
--- NOTE | 2017-11-06 08:01 | HHI.DS ---
Discharge Summary Admission Date Oct 27, 2017 at 23:13 Discharge Date: Nov 06, 2017 Admitting Diagnosis urosepsis, elevated troponin, urinary obstruction (1) Encephalopathy ICD Code: G93.40 - Encephalopathy, unspecified (2) Sepsis ICD Code: A41.9 - Sepsis, unspecified organism Status: Acute (3) UTI (urinary tract infection) ICD Code: N39.0 - Urinary tract infection, site not specified (4) Elevated troponin ICD Code: R74.8 - Abnormal levels of other serum enzymes Status: Acute (5) DM (diabetes mellitus) ICD Code: E11.9 - Type 2 diabetes mellitus without complications (6) DNR (do not resuscitate) ICD Code: Z66 - Do not resuscitate Procedures NONE Brief History - From Admission This is a 72-year-old DNR male with a PMH of Anxiety, Depression, Dementia, HTN , Hyperlipidemia, COPD, DM and CHF (Unknown EF) who was sent to the ER from [facility] due to fever and AMS. Pt significantly lethargic on arrival, unable to provide any history. Per report, pt w/ significant Dementia and confusion at baseline, however noted to be more altered than normal. Temp 102.0 by EMS. On arrival here, BP 144/63, HR 102, O2 sat 93% on RA, Temp 103.0. WBC 19.9. Creatinine 2.98 previously 2.04 on 10/14/2017. Lactic Acid 2.8. Troponin 0 0.16. INR 1.0. UA positive for UTI. CXR with cardiomegaly. CT Abdomen/Pelvis with persistent but less prominent perinephric stranding. S/ p Blood Cultures, Vanc/Zosyn in ER. Mental status now improved, however remains confused. CBC/BMP: 11/06/17 0630 11/06/17 0630 Significant Findings Laboratory Tests Test 11/03/17 17:20 11/03/17 20:05 11/05/17 09:15 11/06/17 06:30 Red Blood Count 3.20 MIL/MM3 (4.50-5.90) 3.13 MIL/MM3 (4.50-5.90) Hemoglobin 9.9 GM/DL (13.0-17.0) 9.6 GM/DL (13.0-17.0) Hematocrit 28.1 % (39.0-51.0) 27.4 % (39.0-51.0) Eosinophils (%) (Auto) 8.6 % (0.0-4.0) 5.4 % (0.0-4.0) Eosinophils # (Auto) 0.9 TH/MM3 (0-0.4) 0.5 TH/MM3 (0-0.4) Blood Urea Nitrogen 23 MG/DL (7-18) 24 MG/DL (7-18) Creatinine 1.64 MG/DL (0.60-1.30) 1.68 MG/DL (0.60-1.30) Chloride Level 111 MEQ/L (98-107) 112 MEQ/L (98-107) Estimat Glomerular Filtration Rate 42 ML/MIN (>89) 40 ML/MIN (>89) Monocytes (%) (Auto) 8.4 % (0.0-8.0) Imaging Last Impressions Chest X-Ray 10/27/172033 Signed Impressions: Service Date/Time: Friday, October 27, 2017 20:59 - CONCLUSION: Cardiomegaly. Jas Murphy MD Abdomen/Pelvis CT 10/27/17 0000 Signed Impressions: Service Date/Time: Friday, October 27, 2017 22:25 - CONCLUSION: 1. Persistent but less prominent perinephric stranding. 2. Colonic diverticula. Jas Murphy MD PE at Discharge GENERAL: 72-year-old male, in bed does not appear in distress arousable however is disoriented and confused. CARDIOVASCULAR: Regular rate and rhythm without murmurs, gallops, or rubs. RESPIRATORY: Breath sounds equal bilaterally. No accessory muscle use. GASTROINTESTINAL: Abdomen soft, non-tender, nondistended. MUSCULOSKELETAL: No cyanosis, or edema. BACK: Nontender without obvious deformity. No CVA tenderness. Hospital Course 72 year old male admitted with encephalopathy in setting of Sepsis from UTI. Urinary retention present at admit. UTI, treated with IV antibiotics while inpatient as patient he needed gentamicin and Zosyn IV per ID recommendations. Patient had to stay in the hospital because he had to be monitored more frequently. Also with metabolic encephalopathy resolved with resolving sepsis. Patient improved finish course of antibiotics 11/06/17. Discharged to longterm facility in stable condition to follow-up with PCP and consultants as outpatient. Sepsis resolved. Finish course of antibiotics 11/06/17 and was discharged to longterm facility. Patient presented with sepsis with UTI Rocephin Gentamicin Zosyn ID Following Follow cultures Improving some on treatment Cultures with Pseudomonas and also with Ariella. Started also on fluconazole. Metabolic Encephalopathy secondary to UTI/Sepsis. Improving Treat as above Follow clinically Supportive Care Improving Troponin elevation Reactive vs. Mild Ischemic event No aggressive intervention Cardiology following DM2 controlled A1c is 6.6 Insulin Sliding Scale Follow blood sugars Diabetic Diet DVT Prophylaxis SCDs Discussed with the patient, nurse cleared by ID Plan for IV antibiotic Zosyn and gentamicin until 11/06/17. Patient is to stay inpatient while he received his antibiotics to monitor closely the renal function, discussed with Dr Lopez ID specialist. Plan discussed with the patient, family. The patient was discharged in stable condition to longterm facility. To follow-up as outpatient with PCP and consultants. Pt Condition on Discharge: Stable Discharge Disposition: Discharge to SNF Discharge Time: > 30 minutes Discharge Instructions DIET: Follow Instructions for: Heart Healthy Diet, Diabetic Diet Activities you can perform: Regular-No Restrictions Follow up Referrals: PCP Follow-up - 2-3 Days SNF/RETIREMENT/ with [facility] New Medications: Fluconazole (Diflucan) 100 Mg Tab 100 MG PO DAILY for uti , #3 TAB Haloperidol (Haloperidol) 0.5 Mg Tab 0.5 MG PO BID for psychosis , #60 TAB Risperidone (Risperdal) 0.25 Mg Tab 0.25 MG PO Q12HR for psychosis , #60 TAB Continued Medications: Acetaminophen (Tylenol) 325 Mg Tab 650 MG PO Q6H PRN for PAIN, TAB 0 Refills Atenolol (Atenolol) 50 Mg Tab 50 MG PO DAILY for Blood Pressure Management, #30 TAB 0 Refills Calcium Polycarbophil (Fibercon) 625 Mg Tab 1250 MG PO BID, TAB 0 Refills Cholestyramine Light (Cholestyramine Light) 4 Gm/Dose Powd 4 GM PO BID for Dyslipidemia, #1 CAN 0 Refills 1 level scoopful of powder contains 4 grams of cholestyramine. Finasteride (Finasteride) 5 Mg Tab 5 MG PO DAILY for Manage Prostate Problems, #30 TAB 0 Refills Do not crush. Fluticasone-Vilanterol Inh (Breo Ellipta Inh) 100-25 Mcg/Act Inh 1 PUFF INH DAILY, #1 INHALER 0 Refills Use daily at the same time. Folic Acid (Folic Acid) 0.8 Mg Tab 1 MG PO DAILY for Nutritional Supplement, TAB 0 Refills Furosemide (Furosemide) 40 Mg Tab 40 MG PO DAILY, #30 TAB 0 Refills Insulin Aspart Inj (Novolog Flexpen Inj) 300 Unit/3 Ml Pen 4 UNITS SQ TIDAC for Blood Sugar Management, #1 PEN 0 Refills Insulin Aspart Inj (Novolog Inj) 1,000 Unit/10 Ml Vial 2-10 UNITS SQ ACHS for Blood Sugar Management, #10 ML 0 Refills Sliding Scale: 0-70: Give 4oz of OJ and notifsara CIFUENTES, 71-150=0 units, 151-200=2 units, 201-250=4 units, 251-300=6 units, 301-350=8 units, 351-400=10 units > 400, alirio CIFUENTES Insulin Glargine Inj (Lantus Inj) 100 Unit/Ml Inj 15 UNIT SQ HS, #30 INJECTION Lactobacillus Rhamnosus (GG) (Culturelle) 10 Billion Cell Cap 1 CAP PO BID for Nutritional Supplement, CAP 0 Refills Omeprazole (Omeprazole) 20 Mg Tab 20 MG PO DAILY, #30 TAB 0 Refills Potassium Chloride ER (Potassium Chloride ER) 10 Meq Cap 20 MEQ PO BID for Electrolyte Replacement, #60 CAP 0 Refills Sertraline (Sertraline) 100 Mg Tab 100 MG PO DAILY, #30 TAB 0 Refills Sertraline (Sertraline) 50 Mg Tab 50 MG PO DAILY, #30 TAB 0 Refills Sulfamethoxazole-Trimethoprim (Bactrim) 400-80 Mg Tab 1 TAB PO BID for Infection, TAB 0 Refills Tamsulosin (Flomax) 0.4 Mg Cap 0.4 MG PO DAILY for urinary retention, #30 CAP 0 Refills Discontinued Medications: Lorazepam (Lorazepam) 1 Mg Tab 1 MG PO Q8H PRN for ANXIETY, TAB 0 Refills Estefany Trinidad MD Nov 06, 2017 08:01
[2017-11-06] MEDS: TAMSULOSIN HCL 0.4 MG CAP PO SCH (08:53)
[2017-11-06] MEDS: FLUCONAZOLE 100 MG TAB PO SCH (08:53)
[2017-11-06] MEDS: CYANOCOBALAMIN 100 MCG TAB PO SCH (08:53)
[2017-11-06] MEDS: FOLIC ACID 1 MG TAB PO SCH (08:54)
[2017-11-06] MEDS: ASPIRIN EC 81 MG TABEC PO SCH (08:54)
[2017-11-06] MEDS: HALOPERIDOL 0.5 MG TAB PO SCH (08:54)
[2017-11-06] MEDS: DOCUSATE SODIUM 50 MG/SENNA 8.6 MG TAB PO SCH (08:54)
[2017-11-06] MEDS: FINASTERIDE 5 MG TAB PO SCH (08:54)
[2017-11-06] MEDS: SODIUM CHLORIDE 0.9% FLUSH 10 ML FLUSH IV FLUSH SCH (08:55)
[2017-11-06] MEDS: risperiDONE 0.25 MG TAB PO SCH (09:13)
--- NOTE | 2017-11-15 14:17 | PQ ---
Physician Query Response Document PATIENT: JOSEPH CANTOR : 1945 ADMIT DATE: 10/27/2017 11:13 PM DISCH DATE: 11/06/2017 4:49 PM RESPONDING PROVIDER #: edwina QUERY TEXT: Cause and Effect Relationship Please clarify in documentation the relationship, if any, between chronic Mendoza catheter and urinary tract infection. Such as: -- Conditions are due to or associated -- Unrelated to each other -- Other, please specify If you have ahy additional questions/comments and/or concerns, please do not hesitate to reach out to the CDI/Coding Hotline, Ext. [phone]. The patient's Clinical Indicators include: Consult Dr. Hewitt - History of Present Illness: He has a chronic indwelling Mendoza catheter. The patient was recently evaluated at the emergency department on 10/14 and had Enterococcus faecali s in the urine. He was treated with ciprofloxacin Same Consult report - Impression: The patient has chronic indwelling Mendoza catheter, which predispo ses him to recurrent urinary tract infection. Patient diagnosed with Pseudomonas UTI. ED Report - Narrative Course : Mendoza replaced with immediate return of very dirty urine. Labs show elevated WBC count, lactic acid. UA positive for UTI. Query created by: Shaina Mathew on 11/12/2017 1:07 PM RESPONSE TEXT: Patient with h/o chronic indwelling catheter use and presented with UTI catheter related infection . QUERY TEXT: CHF Acuity and Type Congestive Heart Failure is documented in the Medical Record. Please document the type and acuity (in cludes probable or suspected) Such as: Type: -- Systolic -- Diastolic -- Combined -- Other, please specify Acuity: -- Acute -- Chronic -- Acute on chronic -- Other, please specify Also please document the underlying cause of the CHF (includes probable or suspected) If you have any additional questions/comments and/or concerns, please do not hesitate to reach out to the CDI/Coding Hotline, Ext. [phone]. The patient's Clinical Indicators include: H This is a 72-year-old DNR male with a PMH of .............CHF (Unknown EF) . On furosemide as outpat ient. Echocardiogram performed 10/30/17: Indication: Bacteremia, Elevated Troponin CONCLUSIONS The left ventricular systolic function is normal with an estimated ejection fraction in the range of 50-55%. Wall thickness is measured at the upper limits of normal. No regional wall motion abnormalities are present. Mild mitral valve regurgitation. Trileaflet aortic valve. Mild calcification of the non-coronary cusp. There is trace tricuspid valve regurgitation. The estimated pulmonary arterial pressure is 28 mmHg. Query created by: Shaina Mathew on 11/12/2017 3:25 PM RESPONSE TEXT: CHF with preserved EF 55% Electronically signed by: Estefany Trinidad MD 11/15/2017 2:13 PM
== END 2017-11-06 16:49 | DRG 871 ==
LOC: NEPC 20:20 → NEDA 23:13 → NEDH 10-28 04:06 → HCIS 10-28 05:07 → N04A 10-30 16:17
PROVIDERS: ADMIT Hospitalist; ATTEND Hospitalist
DX: A41.52 Sepsis due to Pseudomonas (principal); G93.41 Metabolic encephalopathy; F03.90 Unspecified dementia, unspecified severity, without behavioral disturbance, psychotic disturbance, mood disturbance, and anxiety; I11.0 Hypertensive heart disease with heart failure; I50.9 Heart failure, unspecified; F33.1 Major depressive disorder, recurrent, moderate; E87.5 Hyperkalemia; B37.49 Other urogenital candidiasis; T83.511A Infection and inflammatory reaction due to indwelling urethral catheter, initial encounter; N39.0 Urinary tract infection, site not specified; Z16.24 Resistance to multiple antibiotics; E11.9 Type 2 diabetes mellitus without complications; Z79.4 Long term (current) use of insulin; I45.10 Unspecified right bundle-branch block; R33.9 Retention of urine, unspecified; Z66 Do not resuscitate; J44.9 Chronic obstructive pulmonary disease, unspecified; N28.9 Disorder of kidney and ureter, unspecified; E78.5 Hyperlipidemia, unspecified
CPT/HCPCS: 36430; 71045; 74176; 80048; 80053; 80170; 81001; 82140; 82550; 82552; 82607; 82728; 82746; 82948; 83036; 83540; 83550; 83605; 83690; 83735; 84100; 84439; 84443; 84484; 85007; 85025; 85027; 85610; 85730; 86850; 86900; 86901; 86920; 87040; 87077; 87086; 87106; 87186; 87205; 93005; 93306; 96365; 96367; J0696; J1580; J1630; J1815; J2543; J3370; J7030; J7040; J7050; P9016